=== PATIENT | female | born 1950 | race Caucasian/White ===

== ENCOUNTER 2017-07-21 12:40 | Emergency (ER) | payer MEDICARE ==
[~2017-07-21] VITALS: Ht 162.6 cm; Wt 86.2 kg
--- OUTSIDE RECORDS SUMMARY | ~2017-07-21 | XMS ---
Demographics + + + | Address | [address] | | | [place] [address] | + + + | Preferred Language | Unknown | + + + | Marital Status | Unknown | + + + | Latter-Day Affiliation | Unknown | + + + | Race | Unknown | + + + | Ethnic Group | Unknown | + + + Author + + + | Author | [facility] | + + + | Organization | [facility] | + + + | Address | [address] | | | [place] [address] | + + + | Phone | | + + + Care Team Providers + + + + | Care Molded Frames Assembler Name | Role | Phone | + + + + Unavailable | Unavailable | + + + + PROBLEMS +---------+ + + +--------+ + + | Type | Condition | ICD9-CM | [id number] | Onset | Condition | SNOMED | | | | Code | Code | Dates | Status | Code | +---------+ + + +--------+ + + | Problem | Essential | | I10 | | Active | [id number] | | | (primary) | | | | | | | | hypertensi | | | | | | | | on | | | | | | +---------+ + + +--------+ + + ALLERGIES No Information SOCIAL HISTORY Never Assessed PLAN OF CARE VITAL SIGNS MEDICATIONS Unknown Medications RESULTS No Results PROCEDURES No Known procedures IMMUNIZATIONS No Known Immunizations MEDICAL (GENERAL) HISTORY + + + + | Type | Description | Date | + + + + | Surgical History | Foot Reconstruction | 2000 | + + + + | Surgical History | Arthoscopy both knees | | + + + + | Surgical History | hysterectomy | | + + + + | Surgical History | Total Knee | Jun 2015 | + + + + | Surgical History | Appendectomy | | + + + + | Surgical History | Tonsilectomy | | + + + + | Hospitalization History | [facility]: Knee | Dec 2504/2016 | | | Replacement | | + + + + | Hospitalization History | [facility] ER Visit: Back Pain | | + + + + | Hospitalization History | [facility] Admission: Infected | | | | disc in patient back | | + + + + | Hospitalization History | [facility] ER Visit: for upper | January/2016 | | | respiratory issue, | | | | transported to [facility] | | + + + + | Hospitalization History | [facility] Admission: A Fib | January/2016 | + + + +"
[~2017-07-21 12:40] MED LIST: CLARITIN10 MG PO; CYCLOBENZAPRINE10 MG PO; DILAUDID2 MG PO; HYDROMORPHONE HC4 MG PO; IRON325 M1 PO; MIRALAX17 GM PO; MULTI VITAMIN1 EACH PO; NUCYNTA50 MG PO; OXYCONTIN20 MG PO; PREDNISONE20 MG PO; REPLESTA50000 UNIT PO; TRAMADOL HCL50 MG PO; TYLENOL325 MG PO; VITAMIN C500 M2 PO; XARELTO10 MG PO
[2017-07-21] MEDS ORDERED: POTASSIUM CHLO20 ME1 PO (12:52)
[2017-07-21] MEDS ORDERED: METOPROLOL SUCC50 MG PO (12:52)
[2017-07-21] MEDS ORDERED: ELIQUIS5 MG PO (12:52)
[2017-07-21] MEDS ORDERED: MAGNESIUM400 MG PO (12:53)
[2017-07-21] MEDS ORDERED: FAMOTIDINE20 MG PO (12:53)
== END 2017-07-21 13:05 | disposition home or self-care (01) ==
LOC: ED 12:40
DX: M25.531 Pain in right wrist (principal); Z00.8 Encounter for other general examination

== ENCOUNTER 2018-04-06 18:16 | Emergency (ER) | payer MEDICARE ==
[~2018-04-06] VITALS: Ht 162.6 cm; Wt 86.2 kg
[~2018-04-06 18:16] MED LIST changes: +ELIQUIS5 MG PO; +FAMOTIDINE20 MG PO; +MAGNESIUM400 MG PO; +METOPROLOL SUCC50 MG PO; +POTASSIUM CHLO20 ME1 PO
[2018-04-06] MEDS ORDERED: ALENDRONATE SOD70 MG PO (18:57)
[2018-04-06] MEDS ORDERED: TRAMADOL HCL50 MG PO (22:30)
--- NOTE | 2018-04-07 19:35 | EKG ---
[facility] [address] [facility] [place], [place] [address] Signed Atrial fibrillation Cannot rule out Anterior infarct , age undetermined Abnormal ECG No previous ECGs available Confirmed by PATRICK KOLB MD ([id number]) on 04/07/2018 7:35:48 PM Electronically Signed By: PATRICK KOLB MD 04/07/181934 PATIENT NAME: NAIMA BERG Electrocardiogram DATE OF : 52 PHYSICIAN: PATRICK KOLB MD REPORT #: [id number] REPORT IS CONFIDENTIAL AND NOT TO BE RELEASED WITHOUT AUTHORIZATION
== END 2018-04-06 22:44 | disposition home or self-care (01) ==
LOC: ED 18:16
DX: R07.89 Other chest pain (principal); Z88.5 Allergy status to narcotic agent; Z91.013 Allergy to seafood; Z88.0 Allergy status to penicillin; Z88.6 Allergy status to analgesic agent; Z88.2 Allergy status to sulfonamides; Z88.1 Allergy status to other antibiotic agents; Z88.8 Allergy status to other drugs, medicaments and biological substances; Z79.899 Other long term (current) drug therapy
CPT/HCPCS: 71046; 80053; 84484; 85025; 85379; 93005; 93010; 99283

== ENCOUNTER 2019-11-01 15:03 | Emergency (ER) | payer MEDICARE ==
[~2019-11-01] VITALS: Ht 162.6 cm; Wt 98.0 kg
--- OUTSIDE RECORDS SUMMARY | ~2019-11-01 | XMS | Encounter Summary ---
Demographics + + + | Address | [address] | | | [place] [address] | + + + | Home Phone | | + + + | Preferred Language | Unknown | + + + | Marital Status | | + + + | Samaritan Affiliation | 1001 | + + + | Race | Unknown | + + + | Ethnic Group | Unknown | + + + Author + + + | Author | [facility] | | | and [place] | + + + | Organization | [facility] | | | and [place] | + + + | Address | Unknown | + + + | Phone | Unavailable | + + + Support + + + + + | Name | Relationship | Address | Phone | + + + + + | Bhavesh Hernandes | ECON | [address] | | | | | [place], [place] | | | | | [address] | | + + + + + Care Team Providers + +------+ + | Care Theater Technician Name | Role | Phone | + +------+ + | Maude Means MD | PCP | | + +------+ + Encounter Details +--------+ + + + + | Date | Type | Department | Care Team | Description | +--------+ + + + + | 09/01/ | Imaging | [facility] | Provider, | | | 2018 | Exam | [facility] | MD Norma Harris | | | | | IMAGING | [place] | | | | | [phone] | [place] [address] | | +--------+ + + + + Social History + +-------+ +--------+------+ | Tobacco Use | Types | Packs/Day | Years | Date | | | | | Used | | + +-------+ +--------+------+ | Never Smoker | | | | | + +-------+ +--------+------+ + +---+---+---+ | Smokeless Tobacco: | | | | | Never Used | | | | + +---+---+---+ + + +---------+ + | Alcohol Use | Drinks/Week | oz/Week | Comments | + + +---------+ + | No | | | | + + +---------+ + + + + | Sex Assigned at | Date Recorded | | | | + + + | Not on file | | + + + + + + + | Job Start Date | Occupation | Industry | + + + + | Not on file | Not on file | Not on file | + + + + + + + + | Travel History | Travel Start | Travel End | + + + + + + | No recent travel history available. | + + documented as of this encounter Functional Status + + + + | Functional Status | Response | Date of Assessment | + + + + | Are you deaf or do you have serious | No | 02/04/2016 | | difficulty hearing? | | | + + + + | Are you blind or do you have serious | No | 02/04/2016 | | difficulty seeing, even when wearing | | | | glasses? | | | + + + + | Do you have serious difficulty walking or | Yes | 02/04/2016 | | climbing stairs? (5 years old or older) | | | + + + + | Do you have difficulty dressing or bathing? | No | 02/04/2016 | | (5 years old or older) | | | + + + + | Because of a physical, mental, or emotional | Yes | 02/04/2016 | | condition, do you have difficulty doing | | | | errands alone such as visiting a doctor's | | | | office or shopping? [15 years old or | | | | older)] | | | + + + + + + + + | Cognitive Status | Response | Date of Assessment | + + + + | Because of a physical, mental, or emotional | No | 02/04/2016 | | condition, do you have serious difficulty | | | | concentrating, remembering, or making | | | | decisions? (5 years old or older) | | | + + + + documented as of this encounter Plan of Treatment +--------+ + + + + | Date | Type | Specialty | Care Team | Description | +--------+ + + + + | 06/24/ | Appointment | Radiation Oncology | Jojo Henry | | | 2019 | | | MD [address] | | | | | | [place], [place] | | | | | | [address] | | | | | | | | +--------+ + + + + documented as of this encounter Procedures + +--------+ + + + | Procedure Name | Priori | Date/Time | Associated Diagnosis | Comments | | | ty | | | | + +--------+ + + + | EDSON TOMOSYN | Routin | 07/15/2018 | | Results for this | | DIAGNOSTIC RIGHT | e | 8:30 AM | | procedure are in the | | | | PDT | | results section. | + +--------+ + + + documented in this encounter Results EDSON Tomosynthesis Diagnostic Right (07/15/2018 8:30 AM PDT) + + | Specimen | + + | | + + + + + | Narrative | Performed At | + + + | External films for comparison only | [facility] | | | | | No results will be in the chart. | | + + + + +---------+ + + | Performing | Address | City/State/Zipcode | Phone Number | | Organization | | | | + +---------+ + + | [facility] | | | | + +---------+ + + documented in this encounter Visit Diagnoses Not on filedocumented in this encounter"
--- OUTSIDE RECORDS SUMMARY | ~2019-11-01 | XMS | Encounter Summary ---
Demographics + + + | Address | [address] | | | [place] [address] | + + + | Home Phone | | + + + | Preferred Language | Unknown | + + + | Marital Status | | + + + | Jainism Affiliation | 1001 | + + + | Race | Unknown | + + + | Ethnic Group | Unknown | + + + Author + + + | Author | [facility] | | | and [place] | + + + | Organization | [facility] | | | and [place] [...] [place], [place] | | | | | [address] | | + + + + + Care Team Providers + +------+ + | Care Boiler Maker Name | Role | Phone | + +------+ + | Maude Means MD | PCP | | + +------+ + Encounter Details +--------+ + + + + | Date | Type | Department | Care Team | Description | +--------+ + + + + | 03/22/ | Orders Only | [facility] | Conversion | | | 2016 | | INFECTIOUS DISEASE | Transaction, | | | | | [address] | Provider Unknown | | | | | [facility] [place] | [phone] | | | | | [address] | | | | | | [phone] | | | +--------+ + + + + Social History + +-------+ +--------+------+ | Tobacco Use | Types | Packs/Day | Years | Date | | | | | Used | | + +-------+ +--------+------+ | Never Smoker | | | | | + +-------+ +--------+------+ + + +---------+ + | Alcohol Use [...] Oncology | Jojo Henry | | | 2020 | | | MD [address] | | | | | | [place], [place] | | | | | | [address] | | | | | | | | +--------+ + + + + documented as of this encounter Procedures + +--------+ + + + | Procedure Name | Priori | Date/Time | Associated Diagnosis | Comments | | | ty | | | | + +--------+ + + + | EXTERNAL LAB: CBC | Routin | 03/22/2016 | | Results for this | | | e | 12:00 AM | | procedure are in the | | | | PDT | | results section. | + +--------+ + + + | SEDIMENTATION RATE, | Routin | 03/22/2016 | | Results for this | | AUTOMATED | e | 12:00 AM | | procedure are in the | | | | PDT | | results section. | + +--------+ + + + | C-REACTIVE PROTEIN | Routin | 03/22/2016 | | Results for this | | | e | 12:00 AM | | procedure are in the | | | | PDT | | results section. | + +--------+ + + + documented in this encounter Results Sedimentation rate, automated (03/22/2016 12:00 AM PDT) + +-------+ + + + | Component | Value | Ref Range | Performed | Pathologist | | | | | At | Signature | + +-------+ + + + | Sed Rate | 14 | 0 - 20 mm/hr | EXTERNAL | | | | | | LAB | | + +-------+ + + + + + | Specimen | + + | Blood specimen | | (specimen) | + + + +---------+ + + | Performing | Address | City/State/Zipcode | Phone Number | | Organization | | | | + +---------+ + + | EXTERNAL LAB | | | | + +---------+ + + External Lab: CBC (03/22/2016 12:00 AM PDT) + +---------+ + + + | Component | Value | Ref Range | Performed | Pathologist | | | | | At | Signature | + +---------+ + + + | WBC | 3.9 (A) | 4.5 - 11.0 K/uL | EXTERNAL | | | | | | LAB | | + +---------+ + + + | RED CELL | 4.51 | 3.8 - 5.1 M/uL | EXTERNAL | | | COUNT | | | LAB | | + +---------+ + + + | Hgb | 13.0 | 12.0 - 16.0 | EXTERNAL | | | | | g/dL | LAB | | + +---------+ + + + | Hematocrit, | 40.0 | 35 - 45 % | EXTERNAL | | | POC | | | LAB | | + +---------+ + + + | MCV | 88.9 | 81 - 99 fL | EXTERNAL | | | | | | LAB | | + +---------+ + + + | MCH | 29 | 27 - 33 pg | EXTERNAL | | | | | | LAB | | + +---------+ + + + | MCHC | 33 | 30 - 36 g/dL | EXTERNAL | | | | | | LAB | | + +---------+ + + + | Platelet | 154 | 140 - 440 K/uL | EXTERNAL | | | Count | | | LAB | | | Plasma | | | | | + +---------+ + + + | RDW-CV | 14.8 | 10.5 - 15.0 % | EXTERNAL | | | | | | LAB | | + +---------+ + + + | MPV | | | EXTERNAL | | | | | | LAB | | + +---------+ + + + | Differentia | | | EXTERNAL | | | l Type | | | LAB | | + +---------+ + + + | % Segmented | 65.0 | 39 - 80 % | EXTERNAL | | | | | | LAB | | | Neutrophils | | | | | + +---------+ + + + | % | 24.2 | 24 - 44 % | EXTERNAL | | | Lymphocytes | | | LAB | | + +---------+ + + + | % Monocytes | 7.0 | 0 - 12 % | EXTERNAL | | | | | | LAB | | + +---------+ + + + | % | 3.0 | 0 - 3 % | EXTERNAL | | | Eosinophils | | | LAB | | + +---------+ + + + | % Basophils | 0.8 | 0 - 2 % | EXTERNAL | | | | | | LAB | | + +---------+ + + + | Absolute | | | EXTERNAL | | | Segmented | | | LAB | | | Neutrophils | | | | | + +---------+ + + + | Absolute | | | EXTERNAL | | | Lymphocytes | | | LAB | | + +---------+ + + + | Absolute | | | EXTERNAL | | | Monocytes | | | LAB | | + +---------+ + + + | Absolute | | | EXTERNAL | | | Eosinophils | | | LAB | | + +---------+ + + + | Absolute | | | EXTERNAL | | | Basophils | | | LAB | | + +---------+ + + + + + | Specimen | + + | Blood specimen | | (specimen) | + + + +---------+ + + | Performing | Address | City/State/Zipcode | Phone Number | | Organization | | | | + +---------+ + + | EXTERNAL LAB | | | | + +---------+ + + C-Reactive Protein (03/22/2016 12:00 AM PDT) + +-------+ + + + | Component | Value | Ref Range | Performed | Pathologist | | | | | At | Signature | + +-------+ + + + | CRP | 3.8 | 0 - 5 mg/L | EXTERNAL | | | | | | LAB | | + +-------+ + + + + + | Specimen | + + | Blood specimen | | (specimen) | + + + +---------+ + + | Performing | Address | City/State/Zipcode | Phone Number | | Organization | | | | + +---------+ + + | EXTERNAL LAB | | | | + +---------+ + + documented in this encounter Visit Diagnoses Not on filedocumented in this encounter"
--- OUTSIDE RECORDS SUMMARY | ~2019-11-01 | XMS | Encounter Summary ---
Demographics + + + | Address | [address] | | | [place] [address] | + + + | Home Phone | | + + + | Preferred Language | Unknown | + + + | Marital Status | | + + + | Gnosticist Affiliation | 1001 | + + + | Race | Unknown | + + + | Ethnic Group | Unknown | + + + Author + + + | Author | [facility] | | | and [place] | + + + | Organization | [facility] | | | and [place] | + + + | Address | Unknown | + + + | Phone | Unavailable | + + + Support + + + + + | Name | Relationship | Address | Phone | + + + + + | Bhavesh Hernandes | ECON | [address] | | | | | [place] | | | | | [address] | | + + + + + Care Team Providers + +------+ + | Care Sample Selector Name | Role | Phone | + +------+ + | Puneet Donovan MD | PCP | | + +------+ + Reason for Visit + + + | Reason | Comments | + + + | Appointment | flex sig | + + + Encounter Details +--------+ + + + + | Date | Type | Department | Care Team | Description | +--------+ + + + + | 03/01/ | Telephone | [facility] | Brett Wing MD | Appointment (flex | | 2016 | | GASTROENTEROLOGY | [address], [place] | sig) | | | | [address] [place] | [address] [place], [place] | | | | | [address] [place], [place] | [address] | | | | | [address] | | | | | | [phone] | | | +--------+ + + + [...] [address] | | | | | | [place] | | | | | | [address] | | | | | | | | +--------+ + + + + documented as of this encounter Visit Diagnoses Not on filedocumented in this encounter"
--- OUTSIDE RECORDS SUMMARY | ~2019-11-01 | XMS | Encounter Summary ---
Demographics + + + | Address | [address] | | | [place] [address] | + + + | Home Phone | | + + + | Preferred Language | Unknown | + + + | Marital Status | | + + + | Pentecostal Affiliation | 1001 | + + + | Race | Unknown | + + + | Ethnic Group | Unknown | + + + Author + + + | Author | [facility] | | | and [place] | + + + | Organization | [facility] | | | and [...] [place], [place] | | | | | [address] | | + + + + + Care Team Providers + +------+ + | Care Operating Room Surgical Technician Name | Role | Phone | [...] [address] | | | | | [phone] | [place] [address] | | +--------+ + + + + [...] | | | | | | [place], [place] | | | | | | [address] | | | | | | | | +--------+ + + + + documented as of this encounter Procedures + +--------+ + + + | Procedure Name | Priori | Date/Time | Associated Diagnosis | Comments | | | ty | | | | + +--------+ + + + | US GUIDED BREAST | Routin | 07/28/2018 | | Results for this | | BIOPSY RIGHT | e | 9:50 AM | | procedure are in the | | | | PDT | | results section. | + +--------+ + + + documented in this encounter Results US Guided Breast Biopsy Right (07/28/2018 9:50 AM PDT) + + | Specimen | [...]
--- OUTSIDE RECORDS SUMMARY | ~2019-11-01 | XMS | Encounter Summary ---
Demographics + + + | Address | [address] | | | [place] [address] | + + + | Home Phone | | + + + | Preferred Language | Unknown | + + + | Marital Status | | + + + | Gnosticism Affiliation | 1001 | + + + | Race | Unknown | + + + | Ethnic Group | Unknown | + + + Author + + + | Author | [facility] | | | and [place] | + + + | Organization | [facility] | | | and [...] [place], [place] | | | | | [address] | | + + + + + Care Team Providers + +------+ + | Care Receiving Room Clerk Name | Role | Phone | + +------+ + | Maude Means MD | PCP | | + +------+ + Encounter Details +--------+ + + + + | Date | Type | Department | Care Team | Description | +--------+ + + + + | 11/03/ | Documentati | [facility] | Ronna Andrade | | | 2019 | on | MED CNT ONCOLOGY | A, OT | | | | | THERAPY [address] | | | | | | [place], | | | | | | [place] [address] | | | | | | [phone] | | | +--------+ + + + [...] + + documented as of this encounter Progress Notes Ronna Andrade OT - 11/03/2018 1:33 PM PSTFollow up oncology rehab visit as patient h as almost completed radiation tx. Patient reports no concerns to this therapist. She dayna nues to have full UE ROM in BUEs, no c/o pain, and no edema. She has tolerated radiation tx very well, with just mild skin irritation. Patient continues to perform daily ROM exercise s as recommended. She has no further questions or concerns at this time.Electronically sign ed by Ronna Andrade OT at 11/03/2018 1:35 PM PSTdocumented in this encounter Plan of Treatment +--------+ + + + + | Date | Type | Specialty | Care Team | Description | +--------+ + + + + | 06/24/ | Appointment | Radiation Oncology | Jojo Henry | | | 2019 | | | MD [address] | | | | | | [place], [place] | | | | | | [address] | | | | | | | | +--------+ + + + + documented as of this encounter Visit Diagnoses Not on filedocumented in this encounter"
--- OUTSIDE RECORDS SUMMARY | ~2019-11-01 | XMS | Encounter Summary ---
Demographics + + + | Address | [address] | | | [place] [address] | + + + | Home Phone | | + + + | Preferred Language | Unknown | + + + | Marital Status | | + + + | Orthodoxy Affiliation | 1001 | + + + | Race | Unknown | + + + | Ethnic Group | Unknown | + + + Author + + + | Author | [facility] | | | and [place] | + + + | Organization | [facility] | | | and [place] | + + + | Address | Unknown | + + + | Phone | Unavailable | + + + Support + + + + + | Name | Relationship | Address | Phone | + + + + + | Bhavesh Hernandes | ECON | [address] | | | | | [place] | | | | | [address] | | + + + + + Care Team Providers + +------+ + | Care Retail Helper Name | Role | Phone | + +------+ + | Maude Means MD | PCP | | + +------+ + Encounter Details +--------+ + + + + | Date | Type | Department | Care Team | Description | +--------+ + + + + | 10/26/ | Hospital | [facility] | Jojo Henry | | | 2019 | Encounter | MED CTR RADIATION | M, MD [address] | | | | | ONCOLOGY [address] [place], [place] | | | | | [place], | [address] | | | | | [place] [address] | | | | | | [phone] | | | +--------+ + + + [...] + + documented as of this encounter Medications at Time of Discharge + + + +---------+ + + | Medication | Sig | Dispensed | Refills | Start | End Date | | | | | | Date | | + + + +---------+ + + | acetaminophen | Take 650 mg by mouth | | 0 | | | | (TYLENOL) 325 mg | every 4 hours as | | | | | | tablet | needed for Pain. | | | | | + + + +---------+ + + | alendronate | Take 70 mg by mouth | | 0 | | | | (FOSAMAX) 70 mg | every 7 days. | | | | | | tablet | | | | | | + + + +---------+ + + | apixaban (ELIQUIS) | Take 1 tablet by | 60 | 1 | 02/04/20 | | | 5 mg tablet | mouth 2 times daily. | tablet | | 16 | | + + + +---------+ + + | | Take 250 mg by mouth | | 0 | | | | Aspirin-Acetaminophe | as needed. | | | | | | n-Caffeine (EXCEDRIN | | | | | | | PO) | | | | | | + + + +---------+ + + | Calcium Citrate | Take 500 mg by mouth | | 0 | | | | (CITRACAL PO) | 2 times daily. | | | | | + + + +---------+ + + | loratadine | Take 10 mg by mouth. | | 0 | | | | (CLARITIN) 10 mg | | | | | | | tablet | | | | | | + + + +---------+ + + | magnesium oxide | Take 1 tablet by | 30 | 1 | 02/05/20 | | | (MAG-OX) 400 mg | mouth Daily. | tablet | | 16 | | | tablet | | | | | | + + + +---------+ + + | metoprolol | Take 3 tablets by | 90 | 1 | 02/04/20 | | | succinate | mouth Daily. | tablet | | 16 | | | (TOPROL-XL) 50 mg 24 | | | | | | | hr tablet | | | | | | + + + +---------+ + + | potassium chloride | Take 1 tablet by | 60 | 1 | 02/05/20 | | | (K-DUR) 20 mEq ER | mouth daily (with | tablet | | 16 | | | tablet | breakfast). | | | | | + + + +---------+ + + | raNITIdine | Take 150 mg by mouth | | 0 | | | | (ZANTAC) 150 mg | nightly. | | | | | | tablet | | | | | | + + + +---------+ + + documented as of this encounter Plan of Treatment +--------+ + + + + | Date | Type | Specialty | Care Team | Description | +--------+ + + + + | 06/24/ | Appointment | Radiation Oncology | Jojo Henry | | | 2020 | | | MD [address] | | | | | | [place] | | | | | | [address] | | | | | | | | +--------+ + + + + documented as of this encounter Visit Diagnoses Not on filedocumented in this encounter"
--- OUTSIDE RECORDS SUMMARY | ~2019-11-01 | XMS | Encounter Summary ---
Demographics + + + | Address | [address] | | | [place] [address] | + + + | Home Phone | | + + + | Preferred Language | Unknown | + + + | Marital Status | | + + + | Buddhist Affiliation | 1001 | + + + | Race | Unknown | + + + | Ethnic Group | Unknown | + + + Author + + + | Author | [facility] | | | and [place] | + + + | Organization | [facility] | | | and [place] | + + + | Address | Unknown | + + + | Phone | Unavailable | + + + Support + + + + + | Name | Relationship | Address | Phone | + + + + + | Bhavesh Hernandes | ECON | [address] | | | | | [place] | | | | | [address] | | + + + + + Care Team Providers + +------+ + | Care Sand Worker Name | Role | Phone | + +------+ + | Maude Means MD | PCP | | + +------+ + Reason for Visit + + + | Reason | Comments | + + + | Consult | | + + + | Breast Cancer | | + + + Evaluate & Treat (Routine) +--------+ + + + + + | Status | Reason | Specialty | Diagnoses / | Referred By | Referred To | | | | | Procedures | Contact | Contact | +--------+ + + + + + | Closed | Specialty | Radiation | Diagnoses | Naveed, | Carl, | | | Services | Oncology | [place] breast | [place] [facility] | Jojo Lopez MD | | | Required | | Procedures | [address] | [address] | | | | | [place] OFFICE | [address] | | | | | OUTPATIENT | [address] | [place], | | | | | [address] | [place], | [place] [address] | | | | | MINUTES | [place] [address] | Phone: | | | | | | Phone: | [phone] | | | | | | [phone] | Fax: | | | | | | Fax: | [phone] | | | | | | [phone] | | +--------+ + + + + + Encounter Details +--------+ + + + + | Date | Type | Department | Care Team | Description | +--------+ + + + + | 09/03/ | Hospital | [facility] | Jojo Henry | Malignant neoplasm | | 2018 | Encounter | MED CTR RADIATION | MD Jessica [address] | of upper-outer | | | | ONCOLOGY CLINIC [address] | [place], [place] | quadrant of right | | | | [address] | [id number] | breast in female, | | | | [place] [address] | | estrogen receptor | | | | [phone] | | positive (HCC) | +--------+ + + + + Social [...] + + documented as of this encounter Last Filed Vital Signs + + + + + | Vital Sign | Reading | Time Taken | Comments | + + + + + | Blood Pressure | 126/87 | 09/03/2018 12:49 PM | | | | | PST | | + + + + + | Pulse | 77 | 09/03/2018 12:49 PM | | | | | PST | | + + + + + | Temperature | 36.7 C (98 F) | 09/03/2018 12:49 PM | | | | | PST | | + + + + + | Respiratory Rate | 16 | 09/03/2018 12:49 PM | | | | | PST | | + + + + + | Oxygen Saturation | 96% | 09/03/2018 12:49 PM | | | | | PST | | + + + + + | Inhaled Oxygen | - | - | | | Concentration | | | | + + + + + | Weight | 99.3 kg (218 lb 14.7 | 09/03/2018 12:49 PM | | | | oz) | PST | | + + + + + | Height | 166 cm (5' 5.35") | 09/03/2018 12:49 PM | | | | | PST | | + + + + + | Body Mass Index | 36.04 | 09/03/2018 12:49 PM | | | | | PST | | + + + + + documented in this encounter Functional Status + + + [...] | | | | | | [place], [place] | | | | | | [address] | | | | | | | | +--------+ + + + + documented as of this encounter Visit Diagnoses + + | Diagnosis | + + | Malignant neoplasm of upper-outer quadrant of right breast in female, estrogen | | receptor positive (HCC) | + + documented in this encounter
--- OUTSIDE RECORDS SUMMARY | ~2019-11-01 | XMS | Encounter Summary ---
Demographics + + + | Address | [address] | | | [place] [address] | + + + | Home Phone | | + + + | Preferred Language | Unknown | + + + | Marital Status | | + + + | Jewish Affiliation | 1001 | + + + | Race | Unknown | + + + | Ethnic Group | Unknown | + + + Author + + + | Author | [facility] | | | and [place] | + + + | Organization | [facility] | | | and [place] | + + + | Address | Unknown | + + + | Phone | Unavailable | + + + Support + + + + + | Name | Relationship | Address | Phone | + + + + + | Bhavesh Hernandes | ECON | [address] | | | | | [place], [place] | | | | | [address] | | + + + + + Care Team Providers + +------+ + | Care Headhunter Name | Role | Phone | + +------+ + | Maude Means MD | PCP | | + +------+ + Encounter Details +--------+ + + + + | Date | Type | Department | Care Team | Description | +--------+ + + + + | 09/04/ | Documentati | [facility] | Juanita Key | | | 2018 | on | MED CTR MEDICAL | J, RN | | | | | ONCOLOGY CLINIC [address] | | | | | | [address] | | | | | | [place] [address] | | | | | | [phone] | | | +--------+ + + + [...] documented as of this encounter Progress Notes Juanita Key RN - 09/04/2018 9:59 AM PSTI met patient and her in the exam room following Dr. Henry's consult and introduced my role to provide support, education an d navigation for appointments and resources. I provided my contact information and a bookle t on Radiation Therapy. Yamilet says she's doing well post-op and declines the offer to me et with OT. She is doing light massage over her incisions and can feel them softening. She reports she meets often with friends and has a strong social support network. She and her h abdirashid have membership at the gym in [place]; I encouraged them to inquire re: the service s available to cancer patients and survivors at their gym and we discussed the benefits of a ctivity and continuing to exercise. The Greta's live in [place] and Mr Hernandes works history department chair in the mornings. We discussed housing options for Yamilet in [place] during Radi ation Treatments either through the [facility] or [facility] and hotel and they were relieved to hear there is lodging support. I'll plan to introduce them to [facility] anticipating housing and /or transportation assistance when they return to see Dr. Nunez on 09/16. I passed on Dr. Henry's request to order the oncotype DX test to [facility]; and that Dr. Henry sugges ts we can wait to proceed with genetic counseling/ genetic testing on 09/16. I offered a ravindra r of the radiation therapy area and we agreed that I'll re-offer the tour when they return 11/16. Their questions today were answered to their satisfaction. documented in this encounter Plan of Treatment +--------+ + + + + | Date | Type | Specialty | Care Team | Description | +--------+ + + + + | 06/24/ | Appointment | Radiation Oncology | Jojo Henry | | | 2020 | | | MD [address] | | | | | | [place] | | | | | | [address] | | | | | | | | +--------+ + + + + documented as of this encounter Visit Diagnoses Not on filedocumented in this encounter"
--- OUTSIDE RECORDS SUMMARY | ~2019-11-01 | XMS | Encounter Summary ---
Demographics + + + | Address | [address] | | | [place] [address] | + + + | Home Phone | | + + + | Preferred Language | Unknown | + + + | Marital Status | | + + + | Mormonism Affiliation | 1001 | + + + | Race | Unknown | + + + | Ethnic Group | Unknown | + + + Author + + + | Author | [facility] | | | and [place] | + + + | Organization | [facility] | | | and Christianana [...] [place], [place] | | | | | [address] | | + + + + + Care Team Providers + +------+ + | Care Marshmallow Machine Worker Name | Role | Phone | + +------+ + | Maude Means MD | PCP | | + +------+ + Encounter Details +--------+ + + + + | Date | Type | Department | Care Team | Description | +--------+ + + + + | 02/17/ | Documentati | [facility] | Fatoumata Waters RN | | | 2019 | on | MED CTR MEDICAL | | | | | | ONCOLOGY CLINIC [address] | | | | | | [address] | | | | | | [place] [address] | | | | | | [phone] | | | +--------+ + + + [...] documented as of this encounter Progress Notes Fatoumata Waters, RN - 02/17/2019 1:40 PM Chasidy completed treatment for breast cancer o n 11/06/18 and is eligible for a survivorship care plan per Commission on Cancer guidelines. Survivorship care plan was given and discussed with Yamilet in person today. No further qu estions at this time per patient. Let Yamilet know if there are any questions she is welcom e to call me or her medical team here at the cancer center at anytime, contact information w as given. Yamilet filled out the NCCN distress thermometer tool with a score of 6/10 relat ed to joint pain. She will be discussing this with Dr. Henry and Dr. Cardenas today at appointments scheduled after this meeting. She also has an appointment with her Orthopedist in relation to knee and shoulder pain. She is not scheduled to see OT at this time. Based on conversation and answers on the distress tool, no further referrals to be made at this ti pr. Yamilet will make follow up appointments after scheduled appointments today. I shared resources with Yamilet today including diet/nutrition/exercise, fear of recurrence, emotio nal concerns, intimacy during and after cancer treatment, support group information and the cancer survivorship booklet. P M PDTdocumented in this encounter Plan of Treatment +--------+ + + + + | Date | Type | Specialty | Care Team | Description | +--------+ + + + + | 06/24/ | Appointment | Radiation Oncology | Jojo Henry | | | 2019 | | | MD [address] | | | | | | [place] | | | | | | [id number] | | | | | | | | +--------+ + + + + documented as of this encounter Visit Diagnoses Not on filedocumented in this encounter"
--- OUTSIDE RECORDS SUMMARY | ~2019-11-01 | XMS | Encounter Summary ---
Demographics + + + | Address | [address] | | | [place] [address] | + + + | Home Phone | | + + + | Preferred Language | Unknown | + + + | Marital Status | | + + + | Jew Affiliation | 1001 | + + + | Race | Unknown | + + + | Ethnic Group | Unknown | + + + Author + + + | Author | [facility] | | | and [place] | + + + | Organization | [facility] | | | and Christianana [...] [place], [place] | | | | | [address] | | + + + + + Care Team Providers + +------+ + | Care Tank Truck Loader Name | Role | Phone | + +------+ + | Maude Means MD | PCP | | + +------+ + Encounter Details +--------+ + + + + | Date | Type | Department | Care Team | Description | +--------+ + + + + | 02/05/ | Orders Only | [facility] | Conversion | | | 2015 | | INFECTIOUS DISEASE | Transaction, | | | | | [address] | Provider Unknown | | | | | [facility] [place] | [phone] | | | | | [address] | | | | | | [phone] | | | +--------+ + + + [...] | | | | | | [place], [place] | | | | | | [address] | | | | | | | | +--------+ + + + + documented as of this encounter Procedures + +--------+ + + + | Procedure Name | Priori | Date/Time | Associated Diagnosis | Comments | | | ty | | | | + +--------+ + + + | EXTERNAL LAB: [facility] | Routin | 02/06/2016 | | Results for this | | | e | 12:00 AM | | procedure are in the | | | | PDT | | results section. | + +--------+ + + + | MAGNESIUM | Routin | 02/06/2016 | | Results for this | | | e | 12:00 AM | | procedure are in the | | | | PDT | | results section. | + +--------+ + + + | BASIC METABOLIC | Routin | 02/06/2016 | | Results for this | | PANEL | e | 12:00 AM | | procedure are in the | | | | PDT | | results section. | + +--------+ + + + documented in this encounter Results External Lab: [facility] (02/06/2016 12:00 AM PDT) + + + + + + | Component | Value | Ref Range | Performed | Pathologist | | | | | At | Signature | + + + + + + | WBC | 5.7 | 4.5 - 11.0 K/uL | EXTERNAL | | | | | | LAB | | + + + + + + | RED CELL | 4.78 | 3.8 - 5.1 M/uL | EXTERNAL | | | COUNT | | | LAB | | + + + + + + | Hgb | 13.6 | 12.0 - 16.0 | EXTERNAL | | | | | g/dL | LAB | | + + + + + + | Hematocrit, | 42.0 | 35 - 45 % | EXTERNAL | | | POC | | | LAB | | + + + + + + | MCV | 87.9 | 81 - 99 fL | EXTERNAL | | | | | | LAB | | + + + + + + | MCH | 28 | 27 - 33 pg | EXTERNAL | | | | | | LAB | | + + + + + + | MCHC | 32 | 30 - 36 g/dL | EXTERNAL | | | | | | LAB | | + + + + + + | Platelet | 311 | 140 - 440 K/uL | EXTERNAL | | | Count | | | LAB | | | Plasma | | | | | + + + + + + | RDW-CV | 16.2 (A) | 10.5 - 15.0 % | EXTERNAL | | | | | | LAB | | + + + + + + | MPV | | | EXTERNAL | | | | | | LAB | | + + + + + + | Differentia | | | EXTERNAL | | | l Type | | | LAB | | + + + + + + | % Segmented | 76.2 | 39 - 80 % | EXTERNAL | | | | | | LAB | | | Neutrophils | | | | | + + + + + + | % | 14.8 (A) | 24 - 44 % | EXTERNAL | | | Lymphocytes | | | LAB | | + + + + + + | % Monocytes | 7.9 | 0 - 12 % | EXTERNAL | | | | | | LAB | | + + + + + + | % | 0.0 | 0 - 6 % | EXTERNAL | | | Eosinophils | | | LAB | | + + + + + + | % Basophils | 1.1 | 0 - 2 % | EXTERNAL | | | | | | LAB | | + + + + + + | Absolute | | | EXTERNAL | | | Segmented | | | LAB | | | Neutrophils | | | | | + + + + + + | Absolute | | | EXTERNAL | | | Lymphocytes | | | LAB | | + + + + + + | Absolute | | | EXTERNAL | | | Monocytes | | | LAB | | + + + + + + | Absolute | | | EXTERNAL | | | Eosinophils | | | LAB | | + + + + + + | Absolute | | | EXTERNAL | | | Basophils | | | LAB | | + + + + + + + + | Specimen | + + | Blood specimen | | (specimen) | + + + +---------+ + + | Performing | Address | City/State/Zipcode | Phone Number | | Organization | | | | + +---------+ + + | EXTERNAL LAB | | | | + +---------+ + + Magnesium (02/06/2016 12:00 AM PDT) + +-------+ + + + | Component | Value | Ref Range | Performed | Pathologist | | | | | At | Signature | + +-------+ + + + | Magnesium | 1.9 | 1.7 - 2.5 mg/dL | EXTERNAL | | | | | [...] | | | + +---------+ + + Basic Metabolic Panel (02/06/2016 12:00 AM PDT) + +-------+ + + + | Component | Value | Ref Range | Performed | Pathologist | | | | | At | Signature | + +-------+ + + + | Glucose, | 71 | 70 - 100 mg/dL | EXTERNAL | | | Fasting | | | LAB | | + +-------+ + + + | BUN | 12 | 6 - 23 mg/dL | EXTERNAL | | | | | | LAB | | + +-------+ + + + | Creatinine | 0.91 | 0.70 - 1.25 | EXTERNAL | | | | | mg/dL | LAB | | + +-------+ + + + | BUN/Creatin | 13.2 | 6.0 - 28.6 | EXTERNAL | | | ine Ratio | | | LAB | | + +-------+ + + + | Calcium | 9.9 | 8.4 - 10.2 | EXTERNAL | | | | | mg/dL | LAB | | + +-------+ + + + | Na | 133 | 132 - 143 meq/L | EXTERNAL | | | | | | LAB | | + +-------+ + + + | K | 4.4 | 3.6 - 5.1 meq/L | EXTERNAL | | | | | | LAB | | + +-------+ + + + | Cl | 100 | 95 - 112 meq/L | EXTERNAL | | | | | | LAB | | + +-------+ + + + | CO2 | 22 | 19 - 31 meq/L | EXTERNAL | | | | | | LAB | | + +-------+ + + + | Anion Gap | 15.4 | 7 - 21 | EXTERNAL | | | | | | LAB | | + +-------+ + + + | Estimated | 62 | 60 ml/min | EXTERNAL | | | GFR | | | LAB | | + [...]
--- OUTSIDE RECORDS SUMMARY | ~2019-11-01 | XMS | Encounter Summary ---
Demographics + + + | Address | [address] | | | [place] [address] | + + + | Home Phone | | + + + | Preferred Language | Unknown | + + + | Marital Status | | + + + | Rastafarian Affiliation | 1001 | + + + | Race | Unknown | + + + | Ethnic Group | Unknown | + + + Author + + + | Author | [facility] | | | and [place] | + + + | Organization | [facility] | | | and [place] | [...] [place], [place] | | | | | [address] | | + + + + + Care Team Providers + +------+ + | Care Robotic Welder Name | Role | Phone | + [...] [address] | | | | | [phone] | [place] [address] | | +--------+ + + + + [...] | | | | | | [place], [place] | | | | | | [address] | | | | | | | | +--------+ + + + + documented as of this encounter Procedures + +--------+ + + + | Procedure Name | Priori | Date/Time | Associated Diagnosis | Comments | | | ty | | | | + +--------+ + + + | US BREAST LIMITED | Routin | 07/15/2018 | | Results for this | | RIGHT | e | 9:35 AM | | procedure are in the | | | | PDT | | results section. | + +--------+ + + + documented in this encounter Results US Breast Limited Right (07/15/2018 9:35 AM PDT) + + | Specimen | [...]
--- OUTSIDE RECORDS SUMMARY | ~2019-11-01 | XMS | Encounter Summary ---
Demographics + + + | Address | [address] | | | [place] [address] | + + + | Home Phone | | + + + | Preferred Language | Unknown | + + + | Marital Status | | + + + | Faith Affiliation | 1001 | + + + | Race | Unknown | + + + | Ethnic Group | Unknown | + + + Author + + + | Author | [facility] | | | and [place] | + + + | Organization | [facility] | | | and [...] [place], [place] | | | | | [address] | | + + + + + Care Team Providers + +------+ + | Care Air Traffic Instructor Name | Role | Phone | + +------+ + PCP | Unavailable | + +------+ + Encounter Details +--------+ + + + + | Date | Type | Department | Care Team | Description | +--------+ + + + + | 08/05/ | [facility] | Brett Wing MD | | | 2005 | Encounter | MED CTR GENERIC OP | [address] | | | | | CONV DEPT [address] | [address] | | | | | [place], | [address] | | | | | [place] [address] | | | | | | [phone] | | | +--------+ + + + + Social History + +-------+ +--------+------+ | Tobacco Use | Types | Packs/Day | Years | Date | | | | | Used | | + +-------+ +--------+------+ | Never Assessed | | | | | + +-------+ +--------+------+ + + + | Sex Assigned at [...] | | 2019 | | | MD Jessica [address] | | | | | | [place] | | | | | | [address] | | | | | | | | +--------+ + + + + documented as of this encounter Visit Diagnoses Not on filedocumented in this encounter"
--- OUTSIDE RECORDS SUMMARY | ~2019-11-01 | XMS | Encounter Summary ---
Demographics + + + | Address | [address] | | | [place] [address] | + + + | Home Phone | | + + + | Preferred Language | Unknown | + + + | Marital Status | | + + + | Anabaptist Affiliation | 1001 | + + + | Race | Unknown | + + + | Ethnic Group | Unknown | + + + Author + + + | Author | [facility] | | | and [place] | + + + | Organization | [facility] | | | and Christianana [...] [place], [place] | | | | | [address] | | + + + + + Care Team Providers + +------+ + | Care Director Of Psychiatry Name | Role | Phone | + +------+ + | Maude Means MD | PCP | | + +------+ + Encounter Details +--------+ + + + + | Date | Type | Department | Care Team | Description | +--------+ + + + + | 03/22/ | Orders Only | [facility] | Conversion | | | 2016 | | INFECTIOUS DISEASE | Transaction, | | | | | [address] | Provider Unknown | | | | | [facility] [place] | [phone] | | | | | [address] | | | | | | [phone] | | | +--------+ + + + [...] | | | | | | [place], [place] | | | | | | [address] | | | | | | | [...]
--- OUTSIDE RECORDS SUMMARY | ~2019-11-01 | XMS | Encounter Summary ---
Demographics + + + | Address | [address] | | | [place] [address] | + + + | Home Phone | | + + + | Preferred Language | Unknown | + + + | Marital Status | | + + + | Adventism Affiliation | 1001 | + + + | Race | Unknown | + + + | Ethnic Group | Unknown | + + + Author + + + | Author | [facility] | | | and [place] | + + + | Organization | [facility] | | | and Christianana [...] [place], [place] | | | | | [address] | | + + + + + Care Team Providers + +------+ + | Care Shearing Machine Tender Name | Role | Phone | + +------+ + | Maude Means MD | PCP | | + +------+ + Reason for Referral Diagnostic/Screening (Routine) +--------+--------+ + + + + | Status | Reason | Specialty | Diagnoses / | Referred By | Referred To | | | | | Procedures | Contact | Contact | +--------+--------+ + + + + | Closed | | Radiology | Diagnoses | Carl | [address] | | | | | Malignant | Jojo M, | [address] [place] | | | | | neoplasm of | MD [address] | [place], | | | | | right breast | [address] | [place] [address] | | | | | in female, | [place], | Phone: | | | | | estrogen | [place] [address] | [phone] | | | | | receptor | Phone: | Fax: | | | | | positive, | [phone] | [phone] | | | | | unspecified | Fax: | | | | | | site of | [phone] | | | | | | breast (HCC) | | | | | | | Procedures | | | | | | | CT | | | | | | | Treatment | | | | | | | Plan Complex | | | | | | | CT TX PLAN | | | +--------+--------+ + + + + Reason for Visit Diagnostic/Screening (Routine) +--------+--------+ + + + + | Status | Reason | Specialty | Diagnoses / | Referred By | Referred To | | | | | Procedures | Contact | Contact | +--------+--------+ + + + + | Closed | | Radiology | Diagnoses | Ridavid, | [address] | | | | | Malignant | Jojo Lopez, | [place] | | | | | neoplasm of | MD [address] | [place], | | | | | right breast | [address] | [place] [address] | | | | | in female, | [place], | Phone: | | | | | estrogen | [place] [address] | [phone] | | | | | receptor | Phone: | Fax: | | | | | positive, | [phone] | [phone] | | | | | unspecified | Fax: | | | | | | site of | [phone] | | | | | | breast (HCC) | | | | | | | Procedures | | | | | | | CT | | | | | | | Treatment | | | | | | | Plan Complex | | | | | | | CT TX PLAN | | | +--------+--------+ + + + + Encounter Details +--------+ + + + + | Date | Type | Department | Care Team | Description | +--------+ + + + + | 09/30/ | Hospital | [facility] | Jojo Henry | Malignant neoplasm | | 2018 | Encounter | MED CTR [address] | M, [address] | of right breast in | | | | [place], | [place], [place] | female, estrogen | | | | [place] [address] | [address] | receptor positive, | | | | [phone] | | unspecified site of | | | | | | breast (HCC) | +--------+ + + + + [...] [address] | | | | | | [facility] [place] | | | | | | [id number] | | | | | | | | +--------+ + + + + documented as of this encounter Procedures + +--------+ + + + | Procedure Name | Priori | Date/Time | Associated Diagnosis | Comments | | | ty | | | | + +--------+ + + + | CT TREATMENT PLAN | Routin | 09/30/2018 | Malignant neoplasm | Results for this | | COMPLEX | e | 11:48 AM | of right breast in | procedure are in the | | | | PST | female, estrogen | results section. | | | | | receptor positive, | | | | | | unspecified site of | | | | | | breast (HCC) | | + +--------+ + + + documented in this encounter Results CT Treatment Plan Complex (09/30/2018 11:48 AM PST) + + | Specimen | + + | | + + + + + | Narrative | Performed At | + + + | This exam has been auto-finalized and the interpretation may exist | [facility] | | elsewhere in the chart. | | + + + + +---------+ + + | Performing | Address | City/State/Zipcode | Phone Number | | Organization | | | | + +---------+ + + | [facility] | | | | + +---------+ + + documented in this encounter Visit Diagnoses + + | Diagnosis | + + | Malignant neoplasm of right breast in female, estrogen receptor positive, unspecified | | site of breast (HCC) | + + documented in this encounter"
--- OUTSIDE RECORDS SUMMARY | ~2019-11-01 | XMS | Encounter Summary ---
Demographics + + + | Address | [address] | | | [place] [address] | + + + | Home Phone | | + + + | Preferred Language | Unknown | + + + | Marital Status | | + + + | Rastafari Affiliation | 1001 | + + + | Race | Unknown | + + + | Ethnic Group | Unknown | + + + Author + + + | Author | [facility] | | | and [place] | + + + | Organization | [facility] | | | and [place] [...] [place] | | | | | [address] | | + + + + + Care Team Providers + +------+ + | Care Figure Model Name | Role | Phone | + [...] [address] | | | | [address] OFF[address] | [address] | | | | | OUTPATIENT | [address] | LILIYA LOVELL, | | | | | [address] | [place], | [place] [address] | | | | | MINUTES | [place] [address] | Phone: | | | | | | Phone: | [phone] | | | | | | [phone] | Fax: | | | | | | Fax: | [phone] | | | | | | [phone] | | +--------+ + + + + + Encounter Details +--------+ + + + + | Date | Type | Department | Care Team | Description | +--------+ + + + + | 09/03/ | Hospital | [facility] | Jojo Henry | Malignant neoplasm | | 2018 | Encounter | [facility] | MD Jessica [address] | of upper-outer | | | | [facility] [address] | [place], [place] | quadrant of right | | | | [address] | [id number] | breast in female, | | | | [place] [address] | | estrogen receptor | | | | [phone] | | positive (HCC) | +--------+ + [...] | | | | | | [place], [place] | | | | | | [address] | | | | | | | | +--------+ + + + + documented as of this encounter Visit Diagnoses + + | Diagnosis | + + | Malignant neoplasm of upper-outer quadrant of right breast in female, estrogen | | receptor positive (HCC) | + + documented in this encounter
--- OUTSIDE RECORDS SUMMARY | ~2019-11-01 | XMS | Encounter Summary ---
Demographics + + + | Address | [address] | | | [place] [address] | + + + | Home Phone | | + + + | Preferred Language | Unknown | + + + | Marital Status | | + + + | Scientology Affiliation | 1001 | + + + | Race | Unknown | + + + | Ethnic Group | Unknown | + + + Author + + + | Author | [facility] | | | and [place] | + + + | Organization | [facility] | | | and [place] | + + + | Address | Unknown | + + + | Phone | Unavailable | + + + Support + + + + + | Name | Relationship | Address | Phone | + + + + + | Bhavesh Hernandes | ECON | [address] | | | | | [place] | | | | | [address] | | + + + + + Care Team Providers + +------+ + | Care Collections Clerk Name | Role | Phone | + +------+ + | Maude Means MD | PCP | | + +------+ + Reason for Visit + + + | Reason | Comments | + + + | Follow-up | | + + + Encounter Details +--------+ + + + + | Date | Type | Department | Care Team | Description | +--------+ + + + + | 11/07/ | Telephone | [facility] | Juanita [facility] | Follow-up | | 2019 | | [facility] | J, RN | | | | | [facility] [address] | | | | | | [address] | | | | | | [place] [address] | | | | | | [phone] | | | +--------+ + + + [...] [place] | | | | | | [id number] | | | | | | | | +--------+ + + + + documented as of this encounter Visit Diagnoses Not on filedocumented in this encounter"
--- OUTSIDE RECORDS SUMMARY | ~2019-11-01 | XMS | Encounter Summary ---
Demographics + + + | Address | [address] | | | [place] [address] | + + + | Home Phone | | + + + | Preferred Language | Unknown | + + + | Marital Status | | + + + | Evangelical Affiliation | 1001 | + + + | Race | Unknown | + + + | Ethnic Group | Unknown | + + + Author + + + | Author | [facility] | | | and [place] | + + + | Organization | [facility] | | | and [place] | + + + | Address | Unknown | + + + | Phone | Unavailable | + + + Support + + + + + | Name | Relationship | Address | Phone | + + + + + | Bhavesh Hernandes | ECON | [address] | | | | | [place] | | | | | [address] | | + + + + + Care Team Providers + +------+ + | Care Nutrition Internship Name | Role | Phone | + +------+ + | Puneet Donovan MD | PCP | | + +------+ + Reason for Visit Auth/Cert +--------+--------+ + + + + | Status | Reason | Specialty | Diagnoses / | Referred By | Referred To | | | | | Procedures | Contact | Contact | +--------+--------+ + + + + | | | | Diagnoses | | | | | | | Atrial | | | | | | | fibrillation | | | | | | | (HCC) | | | | | | | Ulcerative | | | | | | | colitis | | | | | | | without | | | | | | | complication | | | | | | | s, | | | | | | | unspecified | | | | | | | location | | | | | | | ([facility]) | | | | | | | Ulcerative | | | | | | | colitis | | | | | | | without | | | | | | | complication | | | | | | | s, | | | | | | | unspecified | | | | | | | location | | | | | | | ([facility]) | | | | | | | [[id number]] | | | | | | | Procedures | | | | | | | EGD / | | | | | | | COLONOSCOPY | | | +--------+--------+ + + + + Encounter Details +--------+---------+ + + + | Date | Type | Department | Care Team | Description | +--------+---------+ + + + | 01/30/ | Surgery | [facility] | Brett Wing MD | EGD / COLONOSCOPY | | 2016 | | [facility] | [address], [place] | | | | | [address] | [address] [place], [place] | | | | | [place], [place] | [address] | | | | | [address] | | | | | | [phone] | | | +--------+---------+ + + + Social History + +-------+ [...] + + + | Blood Pressure | 100/59 | 02/04/2016 3:00 PM | | | | | PDT | | + + + + + | Pulse | 94 | 02/04/2016 3:00 PM | | | | | PDT | | + + + + + | Temperature | 36.4 C (97.5 F) | 02/04/2016 3:00 PM | | | | | PDT | | + + + + + | Respiratory Rate | 20 | 02/04/2016 3:00 PM | | | | | PDT | | + + + + + | Oxygen Saturation | 98% | 02/04/2016 3:00 PM | | | | | PDT | | + + + + + | Inhaled Oxygen | - | - | | | Concentration | | | | + + + + + | Weight | 80.6 kg (177 lb 11.1 | 02/03/2016 4:16 AM | | | | oz) | PDT | | + + + + + | Height | 165.1 cm (5' 5") | 01/29/2016 12:27 PM | | | | | PDT | | + + + + + | Body Mass Index | 29.57 | 01/29/2016 12:27 PM | | | | | PDT | | + + + + + [...] + + documented as of this encounter Discharge Summaries Richardson Cramer DO - 02/04/2016 4:11 PM PDTFormatting of this note might be different f rom the original. [facility] DISCHARGE SUMMARY Pt. Name/Age/: Yamilet Hernandes 66 y.o. 1950 Date of Admission: 01/29/2016 Date of Discharge: 02/04/2016 Admitting Physician: Richardson Cramer DO Primary Care Provider: Puneet Donovan Discharging Physician: Richardson Cramer DO DISCHARGE DIAGNOSES: Active Hospital Problems Diagnosis Atrial fibrillation with RVR Cough Dysphagia Discitis Ulcerative colitis without complications Hyponatremia Schatzki's ring of distal esophagus Resolved Hospital Problems Diagnosis Leukopenia Rectal bleeding DISCHARGE MEDICATIONS: Discharge Medications New Medications Details apixaban 5 mg tablet Take 1 tablet by mouth 2 times daily. aka: ELIQUIS famotidine 20 mg tablet Take 1 tablet by mouth 2 times daily. aka: PEPCID levofloxacin in dextrose 750 mg/150 mL IVPB Inject 150 mLs into the vein Daily for 10 days. Indications: Intervertebral Disc Inflammat ion aka: LEVAQUIN Start: 02/05/2016 magnesium oxide 400 mg tablet Take 1 tablet by mouth Daily. aka: MAG-OX Start: 02/05/2016 metoprolol succinate 50 mg 24 hr tablet Take 3 tablets by mouth Daily. aka: TOPROL-XL potassium chloride 20 mEq ER tablet Take 1 tablet by mouth daily (with breakfast). aka: K-DUR Start: 02/05/2016 Changed Medications Details HYDROmorphone 2 mg tablet Take 1-2 tablets by mouth every 6 hours as needed for Pain (First option). What changed: - medication strength - how much to take - when to take this - reasons to take this aka: SHAMIKAID Discontinued Medications cefTRIAXone 2 g/100 mL Soln aka: [facility]: Please refer to the H&P for full details and the most recent rounding rounding (progress) n ote. In short this is a 66 y.o. female with a history of ulcerative colitis, recent left knee ar throplasty complicated by apparent discitis for which she takes ceftriaxone, who presents wi th lightheadedness, dizziness, shortness of breath. She had a left TKR on 12/25, and shortly afterwards, developed severe back pain, and was admi tted to [facility] on 01/03 and diagnosed with discitis, and started on 6 weeks of ceftriaxone to finish 02/14. She follows up with Dr. Reddy of infectious disease. Her back pain is large ly resolved, although she is taking hydromorphone PRN for her knee pain. She reports some chronic loose stools, but does not take any chronic meds for ulcerative co litis. Over the last few days, she has noticed increasing shortness of breath, weakness, lighthead edness with standing. No falls. Denies chest pain. Has shortness of breath with any ac tivity, and admits to frequent cough causing abdominal muscle pain. In the emergency department at [place], she was found to have atrial fibrillation wit h RVR, elevated troponin of 0.06 (normal <0.01), and was transferred here for further workup . Atrial fibrillation with RVR - Likely the cause of her shortness of breath, weakness, lightheadedness over the last 4-5 days - No prior diagnosis of any sort of heart disease - Troponins negative - Started on apixaban since admission, held 01/29 in anticipation of EGD/colonoscopy. Restar raman in am 01/31. Continue with Apixaban. - TSH normal, but total T4 elevated, raising question of possible hyperthyroidism. Checked Free T4: low at 1.5. In acute illness thyroid testing is unreliable. Hence will need to rech lisa thyroid function testing once more medically stable in the next 6 weeks. - Chest CT did not show acute disease in the chest - Echo shows grade 2 LV diastolic dysfuction, preserved LV systolic function, moderately di lated left atrium. See full report noted above for more details. - 01/29: HR well controlled on only 5 of diltiazem drip, switchrf to carvedilol in the luisani ng, 6.25 mg bid. - 01/30: HR relatively well controlled in low 100s to 110s, up to 120s with mobility. - 01/31: Am patient back in RVR w/ heart rates in 140s to 150s. Transfer to step down unit a nd will give loading dose of IV Diltiazem followed by diltiazem drip if needed. Hold Coreg. - check Mg and replace if low. Checking EKG. - Dr. Khalil of Cardiology is following, discussed with him in person today, appreciate yolis mmendations. He recommends trial of Toprol XL 100 mg daily once patient has better rate cont rol with diltiazem. - Mg was low at 1.6, hence gave 2 gm Mg rider. - 02/01: Heart rates better controlled in the 80s to 90s, but would go up to 130s with activ ity. Increased Toprol-XL to 150 mg daily. - 02/02: Still having significant tachycardia with activity. - 02/03: No significant tachycardia with activity. Will c/w Toprol XL 150 daily. Mg normal t abdullahi at 1.9. K is 4.4 - increase activity as tolerated. Cough - Has had significant cough for some time, c/o worsening dysphagia - 01/29 Started on famotidine for possible GERD, has history of hiatal hernia. - 01/30 EGD shows Schatzki ring and gastritis with hiatal hernia. Most likely cause. C/w Fam otidine. - CT showed no consolidation or PE - 01/31: Cough is better. - 02/03: Cough continues to get better. Dysphagia - multifactorial. - 01/30: EGD showed Schatzki ring which was dilated. There was also evidence of gastroparesi s, minor antral gastritis. There is also hiatal hernia. - 01/30: restarted patient on clear liquid than advanced to full liquid overnight. - 01/31: c/w full liquids diet - 02/01: doing better, advance diet to soft diet. - 02/02: Tolerated soft diet well, will continue indefinitely on soft diet due to history of Schatzki's ring. Discitis - Denies fevers, back pain greatly improved - 01/29: Discussed with Dr Hagan at [facility], who is covering Dr. Reddy's patients, recommen ded discussing leukopenia/thrombocytopenia with him today, continued ceftriaxone - 01/30: Discussed with Dr. Reddy at [facility], who recommended switching over to once daily Lev aquin IV to finish complete course of therapy with 02/14 being last day of therapy. Patient w ill need to f/u with Dr. Reddy's office in 1 week after discharge from the hospital. Today wa s 1st dose of Levaquin IV. Will need to direct selling counselor patient about risk of tendonitis, tendon rup ture 2/ use of Levaquin. - 01/31: C/w Levaquin. - 02/03: c/w Levaquin and finish a full course of therapy. Last day of therapy 02/14. Ulcerative colitis without complications - Takes no meds - Needs follow up with GI as outpatient, hasn't had colonoscopy since 2005 - Having some diarrhea, but c diff toxin negative - ESR/CRP negative - Discussed with Dr. Wing, given the occasional blood in the stool, the ~ 40 pound weight loss, performed colonoscopy which shows findings most consistent with UC, with biopsies conf irmed the same. Given the mild to moderate degree of inflammation associated with the same t here is no urgency instituting treatment. Patient needs to F/U further recommendations when follow up as outpatient with Dr. Wing as outpatient. Hyponatremia - 01/29: Improved with fluids, Na 135, no acute issues - 01/30: Resolved, NA 141. Wean off IVFs as patient advances diet. - 01/31: Na 137. - 02/01: Na 136. - 02/02: Na still within normal range at 135. - 02/03: Na is stable at 135 Leukopenia - 01/29: WBC of 2.3 and falling. Platelet count down to 84. - WBC was 3.1 last week, range before was 4.7 - 5 - 01/30: WBC stable at 2.3. Plt up to 114 - Discussed holding ceftriaxone with Dr. Reddy today, changed to Levaquin as noted above. - 01/31: WBC better at 2.4. Plt at 110. - ESR/CRP normal - 02/01: WBC better at 3.7. Plt 181 - 02/02: WBC is slightly down at 3.5, Plt stable at 180. - 02/03: WBC is normalized at 4.9. Plt 259 - Plan: c/w Levaquin as noted above. DISPOSITION: Home with home health RN Most recent weight: Input and output for last 24hrs: Wt Readings from Last 1 Encounters: 02/03/16 80.6 kg (177 lb 11.1 oz) I/O last 24 Hours: In: 590 [P.O.:440; IV Piggyback:150] Out: 1800 [Urine:1800] Vitals Ranges: Temp: [35.6 C (96.1 F)-36.4 C (97.5 F)] 36.4 C (97.5 F) Pulse: [84-104] 94 Resp: [16-24] 20 BP: (80-126)/(52-81) 100/59 mmHg Vitals: Temp: 36.4 C (97.5 F) BP: 100/59 mmHg Pulse: 94 Resp: 20 SpO2: 98 % SpO2 98 % on room air at flow rate L/min PHYSICAL EXAM: Patient seen and examined by me on discharge day. General alert, NAD mood and affect normal speech fluent Cardiac irregular irregular, no MRG Extremities no significant edema Lung clear to auscultation no wheezing or rales effort not labored Abdominal + bowel sounds, soft, nontender PROCEDURES AND CONSULTS: Procedures CT ANGIOGRAM PULMONARY . 01/29/2016 4:10 PM HISTORY: Evaluate for pulmomary embolus COMPARISON: None available. TECHNIQUE: Axial images were obtained from the base of the neck to the upper abdomen following the uneventful intravenous administration of 65 mL Omnipaque 350 contrast, with timing of the contrast bolus to maximize opacification of the pulmonary arterial system. Multiplanar reformatted images created. RADIATION DOSE: DLP 349 mGy-cm FINDINGS: Contrast opacification of the pulmonary arterial structures is optimized for the purposes of this study. There is no evidence of filling defect or other abnormality of the pulmonary arterial structures to suggest pulmonary embolism or extrinsic compression. The main pulmonary artery is enlarged, measuring 3.6 cm in diameter, suggestive of pulmonary arterial hypertension. The nonenhanced aorta and branching vessels are within normal limits. Evaluation of the systemic vasculature is limited by early timing of the contrast bolus for the purposes of this pulmonary angiographic study. Central venous line extending from the left upper extremity terminates in the superior vena cava near the confluence of the brachiocephalic veins. The heart is within normal limits, without pericardial effusion. The structures at the base of the neck are unremarkable. No pathologically enlarged mediastinal lymph nodes are evident. There is a small hiatal hernia. Esophagus is otherwise unremarkable in appearance. The trachea is within normal limits. Mild scarring and/or atelectasis is seen at the left lung base. Small air cyst is seen posteriorly in the superior segment of the right lower lobe . Lungs are otherwise clear, without pulmonary nodule or other finding of clinical significance. No pleural effusion or pneumothorax is seen. Other than the small hiatal hernia, the visualized upper abdominal viscera are unremarkable. There is levoconvex curvature of the thoracic spine. Sclerotic foci in the T11 vertebral body favors bone islands. There is diffuse degenerative disc disease with exaggeration of the thoracic kyphosis. There is the appearance of osteopenia. No overt lytic or blastic lesions are seen. The muscles and subcutaneous soft tissues are unremarkable. IMPRESSION - No evidence of pulmonary embolism. Enlargement of the pulmonary artery, as might be seen with pulmonary arterial hypertension. Small hiatal hernia. Degenerative disc disease and spondylotic change, with exaggeration of the thoracic kyphosis and appearance of osteopenia. ECHOCARDIOGRAM REPORT STUDY DATE: 01/30/2016 CLINICAL HISTORY/DIAGNOSIS: A FIB A transthoracic echocardiogram with M-mode, pulsed-wave and color Doppler was performed wit h standard views obtained. The technical quality of this examination is fair. The heart rhythm during the echo is atrial fibrillation. The M-mode, two-dimensional, color flow and spectral Doppler data were reviewed and support the following interpretation: Interpretation: Left Atrium: Moderately dilated, volume index 43. Left ventricle: Mild to moderate septal hypertrophy, not well characterized. Probably nor mal wall motion though not all segments were well defined. The estimated ejection fraction is 64%. Grade 2 left ventricular diastolic dysfunction. Aortic root: Aortic root is normal. Right Atrium: Normal volume Right ventricle: Right ventricular size is normal with normal wall thickness and normal r ight ventricular systolic function. Pericardium: No effusion seen Pulmonary artery: Probably normal in size Aortic valve: Aortic valve is trileaflet and opens normally. mild regurgitation is presen t Mitral valve: Mitral valve is normal. Pulmonic valve: Grossly normal but not well imaged. Tricuspid valve: Tricuspid valve is normal. Vena cava: Appeared to be dilated. Dynamics were not well demonstrated IMPRESSIONS: Atrial fibrillation present throughout the study Moderate left atrial enlargement. Mild left ventricular septal hypertrophy without obstruction. Mild aortic valvular regurgitation. Left ventricular diastolic dysfunction, probably grade 2. PROCEDURES: Upper endoscopy was remarkable for a hiatal hernia with a Schatzki's ring that was dilated with 48 [place] dilator. There was gastroparesis minor antral gastritis H. pylori b iopsy was obtained via mucosa appeared normal. Colonoscopy was remarkable for mild progres sing to moderate colitis from the rectum to the mid transverse colon. Stool cultures were obtained random biopsies were obtained from the left colon. The cecum and ascending and pr oximal transverse colon had normal mucosa. SPECT the patient's weight loss is due to gastr oparesis possible gastritis. Although the appearance of the colitis appeared to be inflamm atory rather than C. diff ulcers were obtained for C. Diff. Consults Orville Khalil MD Cardiology Brett Wing MD Gastroenterology Jorge Reddy DO Infectious Disease (discussed case over the phone) PENDING RESULTS: CBC, BMP, Mg to be obtained on 02/06 with results sent to your PCP and Dr. Reddy's office. DISPOSITION AND DISCHARGE INSTRUCTIONS: Follow-up Information Follow up with Puneet Donovan. Schedule an appointment as soon as possible for a v isit in 1 week. Why: For hospital follow up Contact information: [address] [place] [address] Follow up with Brett Wing MD. Schedule an appointment as soon as possible for a visit in 2 weeks. Specialty: Gastroenterology Why: For follow up of your Ulcerative colitis Contact information: [address], [place] [address] [facility] [phone] Follow up with Jorge Reddy DO. Schedule an appointment as soon as possible for a visit i n 1 week. Specialty: Internal Medicine Why: For follow up on your history and treatment of Diskitis Contact information[facility] [address] [facility] [address] Condition: Patient being discharged with condition improved. Diet: Dental soft, fiber restricted, vegetarian, please make sure to drink plenty of liquid s to keep good oral fluid hydration up to 2 L of fluids per day. Greater than 30 minutes were spent on discharge and coordination of post-hospital care. Electronically signed by: Richardson Cramer DO, 02/04/2016 16:11 [facility] Portions of this chart may have been created with [employer] voice recognition software. Occasi onal wrong-word or sound-alike substitutions may have occurred due to the inherent jack itations of voice recognition software. Please read the chart carefully and recognize, using context, where these substitutions have occurred documented in this encounter Discharge Instructions Instructions Richardson Cramer DO - 02/04/2016Formatting of this note might be different f rom the original. Gastroparesis Gastroparesis (also called delayed gastric emptying) occurs when the stomach takes longer t paredes normal to empty of food. This is due to a problem with motility (the movement of the mus cles in the digestive tract). For many people, gastroparesis is a lifelong condition. But tr eatment can help relieve symptoms and prevent complications. Read on to learn more about gas troparesis and how it can be managed. How gastroparesis develops Gastroparesis means that food and fluids move too slowly out of the stomach into the duoden um. With normal motility, signals from nerves tell the stomach muscles when to contract. These muscles move food from the stomach into the duodenum (the first part of the small bowel). Wi th gastroparesis, the nerves or muscles are damaged. This causes motility to slow down or st op completely. As a result, food cannot move from the stomach properly. This delayed emptyin g can cause nausea, vomiting, and other symptoms. Malnutrition can result. Bezoars (hardened lumps of food) can form in the stomach and cause other complications as well. Causes of gastroparesis Gastroparesis can be caused by any of the following: Diabetes Surgery involving any of the digestive organs, such as the stomach and bowels Certain medications, such as strong pain medicines (narcotics) Certain conditions, such as systemic scleroderma, Parkinson s disease, and thyroid dis ease In many cases, the cause of gastroparesis cannot be found. Signs and symptoms of gastroparesis These can include: Nausea and vomiting Feeling full quickly when eating Abdominal pain Heartburn Abdominal bloating Weight loss Loss of appetite High and low blood sugar levels (in people withdiabetes) Diagnosing gastroparesis Your doctor will ask about your symptoms and health history. You ll also be examined. In addition, blood tests and X-rays are often done to check your health and rule out other prob lems. To confirm the problem, you may need other tests as well. These can include: Upper endoscopy.This is doneto see inside the stomach and duodenum. For the test, an endoscope is used. This is a thin, flexible tube with a tiny camera on the end. It s inse rted through the mouth and down into the stomach and duodenum. Upper gastrointestinal (GI) series.This is doneto take X-rays of the upper GI tract from the mouth to the small bowel. For the test, a substance called barium is used. The evelyn um coats the upper GI tract so that it will show up clearly on X-rays. Gastric emptying scan.This is done to measure how quickly food leaves the stomach. For the test, a meal containing a harmless radioactive substance (tracer) is eaten. Then scans of the stomach are done. The tracer shows up clearly on the scans and shows the movement of the food through the stomach. Treating gastroparesis The goal of treatment is to help you manage your condition. Treatment may include one or mo re of the following: Dietary changes.You may need to make changes to your eating habits and daily diet. For instance, your doctor may instruct you to eat small meals throughout the day. Doing this ca n keep you from feeling full too quickly. You may be placed on a liquid or soft diet. This means you ll eat liquid foods or foods that are mashed or put through a spray blender. In a ddition, you may need to avoid foods high in fats and fiber. These can slow digestion. For m ore help with your diet, your doctor can refer you to a dietitian. In severe cases, you may need a feeding tube. This sends liquid food or medication directly to your small bowel, bypa ssing the stomach. Medicines.These can help manage symptoms, such as nausea and vomiting. They can also i mprove motility. Each medicine has specific risks and side effects. Your doctor can tell you more about any medicine that is prescribed for you. Surgery.You may need to have a tube surgically inserted into the stomach. The tube rem oves excess air and fluid. This can relieve severe symptoms of nausea and vomiting. In rare cases, other surgery may be needed on the stomach or small bowel. This is to create a new pa ssageway for food to be emptied from the stomach. Gastric electrical stimulation. This treatment is done less often and may not be availab le. Your doctor can tell you more about this treatment if it is a choice for you. Diabetes and gastroparesis If you have diabetes, gastroparesis can make it harder to manage your blood sugar level. Yo u ll need to take extra steps in your treatment to prevent complications. Work with your d octor to learn what you can do to protect your health. For more information, contact the [place] [employer] [employer],www.diabetes.org. Long-term concerns With treatment, most people can manage their symptoms and maintain their usual routines. If your symptoms are moderate to severe, you may need to see your doctor more frequently for c heckups. Also, other treatments will likely be needed. [id number] [employer]. [address] [place] [address]. All righ ts reserved. This information is not intended as a substitute for professional medical care. Always follow your healthcare professional's instructions. Gastritis (Adult) Gastritis isinflammation andirritation of the stomach lining.It can be present for a short time (acute) or be long lasting (chronic). Gastritis is often caused by infection with bacteria calledH pylori.More than a third of people in the [place] have this bacteria in the ir bodies. In many cases,H pyloricauses no problems or symptoms. In some people, though, the infection irritates the stomach lining and causes gastritis. Other causes of stomach ir ritation include drinking alcohol or taking pain-relieving medicines called NSAIDs (such as aspirin or ibuprofen). Symptoms of gastritis can include: Abdominal pain or bloating Loss of appetite Nausea or vomiting Vomiting blood or having black stools Feeling more tired than usual An inflamed and irritated stomach lining is more likely to develop a sore called an ulcer. To help prevent this, gastritis should be treated. Home care If needed, medicines may be prescribed. If you haveH pyloriinfection, treating it will likely relieve your symptoms. Other changes can help reduce stomach irritation and help it h eal. If you have been prescribed medicines forH pyloriinfection, take them as directed. T luis enrique all of the medicine until it is finished or your healthcare provider tells you to stop, even if you feel better. Your healthcare provider may recommend avoiding NSAIDs. If you take daily aspirin for yo ur heart or other medical reasons, do not stop without talking to your healthcare provider f irst. Avoid drinking alcohol. Stop smoking. Smoking can irritate the stomach and delay healing. As much as possible, s jimmie away from second hand smoke. Follow-up care Follow up with your healthcare provider, or as advised by our staff. Testing may be needed to check for inflammation or an ulcer. When to seek medical advice Call your healthcare provider for any of the following: Stomach pain that gets worse or moves to the lower right abdomen (appendix area) Chest pain that appears or gets worse, or spreads to the back, neck, shoulder, or arm Frequent vomiting (can t keep down liquids) Blood in the stool or vomit (red or black in color) Feeling weak or dizzy Fever of 100.4F (38C) or higher, or as directed by your healthcare provider [phone] [employer]. [address] [place] [address]. All righ ts reserved. This information is not intended as a substitute for professional medical care. Always follow your healthcare professional's instructions. Discharge Instructions for Atrial Fibrillation You have been diagnosed with atrial fibrillation.With this condition, your heart stwo upper chambers quiver rather than squeeze the blood out in a normal pattern. This leads to an irregular and sometimes rapid heartbeat. Some people will develop associated symptoms suc h as a flip-flopping heartbeat, lightheadedness, or shortness of breath. Other people may keating ve no symptoms at all. Atrial fibrillation is serious because it affects the heart s abili ty to fill with blood as it should. Blood clots may form. This increases the risk for stroke . Untreated atrial fibrillation can also lead to heart failure. Atrial fibrillation can be c ontrolled. Withtreatment, mostpeople with atrial fibrillation lead normal lives. It is e stimated that over 2.5 million Americans have atrial fibrillation. Treatment options Recommended treatment for atrial fibrillation depends on your age, symptoms, how long you h ave had atrial fibrillation, and other factors. You will havea complete evaluation to find out if you have any abnormalities that caused your heart to go into atrial fibrillation. Th is might be blocked heart arteries or a thyroid problem. Your doctor will assess your partic ulmilad case and discuss choices with you. Treatment choices may include: Treating an underlyingdisorder that puts you at risk for atrial fibrillation. For exam ple, correcting an abnormal thyroid or electrolyte problem, or treating a blocked heart candie ry. Restoring a normal heart rhythm with an electrical shock (cardioversion) or with an anti arrhythmic medicine (chemical cardioversion) Using medication to control your heart rate in atrial fibrillation. Preventing therisk for blood clot and stroke using blood-thinning medicines. Your doct or will tell you what he or sherecommends. Choices may include aspirin, clopidogrel, warfa rin, dabigatran, rivaroxaban, or apixaban. Doing catheter ablation or maze procedure. Theseuse different methods to destroy certa in areas of heart tissue. This interrupts the electrical signals causing atrial fibrillation .One of these procedures may be a choice whenmedicines do not work. Other treatment choices may be recommended for you by your doctor. Managing risk factors for stroke and preventing heart failure are important parts of anyt reatment plan for atrial fibrillation. Home care Take your medicines exactly as directed. Don t skip doses. Work with your doctor to find the right medicaines and doses for you. Learn to take your own pulse. Keep a record of your results. Ask your doctor which pulse rates mean that you need medical attention. Slowing your pulse is often the goal of treatme nt. Ask your doctor if it s OK for you to use an automatic machine to check your pulse at home. Sometimes these machines don t count the pulse correctly when you have atrial fibril lation. Limit your intake of coffee, tea, cola, and other beverages with caffeine fu0rmwe pe r day. Talkwith your doctor about whether you should eliminate caffeine. Avoid sntq-ubk-ltcboen medicines that have caffeine in them. Let your doctor know what medicines you take, including prescription and pjcd-fdb-vxdngb r medicines, as well as any supplements. They interfere with some medicines given for atrial fibrillation. Ask your doctor about whetheryou can drink alcohol. Some people need to avoidalcohol to better treat atrial fibrillation. If you are taking blood-thinner medicines, alcohol ma y interfere with them by increasing their effect. Never take stimulants such as amphetamines or cocaine. These drugs can speed upyour he art rate and trigger atrial fibrillation. Follow-up Make a follow-up appointment as directed by our staff. When to call your doctor Call your doctor immediately if you have any of the following: Weakness Dizziness Fainting Fatigue Shortness of breath Chest pain with increased activity A change in the usual regularity of your heartbeat, or an unusually fast heartbeat [id number] [employer]. [address] [place] [address], [place] [address]. All righ ts reserved. This information is not intended as a substitute for professional medical care. Always follow your healthcare professional's instructions. Living with Atrial Fibrillation: Preventing Stroke Atrial fibrillation (AFib) is a type of abnormal heart rhythm. The heart has 2 upper chambe rs called atria and 2 lower chambers called ventricles. AFib causes the atria to quiver (fib rillate) instead of pumping normally. Blood can then pool in the heart instead of moving in and out as usual. This can cause clots to form in the blood. A clot can travel to the brain and cause a stroke. A stroke can cause brain damage very quickly. Taking medicine to prevent stroke Your health care provider may prescribe a medicine to help prevent blood clots. This type o f medicine is called a blood thinner. Blood thinners include: Antiplatelet medicines, such as aspirin or clopidrogrel Anticoagulation medicines, such as warfarin, dabigatran, rivaroxaban, or apixaban Risks of blood thinner medicine Blood thinners increase your risk of bleeding. If you take certain blood thinners, you may need to take extra steps to stay healthy. You may need regular blood tests to check the leve ls of medicine in your blood. You ll need to be careful to not injure yourself. And you ma y need to watch your diet for foods that also affecting blood clotting. If your blood is too thin, you may have symptoms of excess bleeding, such as: Unusual bruising Bleeding from the gums Blood in the urine or stool Vomiting blood Nosebleeds An unusual or severe headache Taking the right dose You ll need to make sure to take the medicine exactly as directed by your health care pro vider. Take it at the same time each day. If you miss a dose, call your provider right away to find out how much to take. Never take a double dose. If you take too much, it can cause t oo much bleeding. It can cause bleeding you can see, on the outside of your body. And it can cause bleeding on the inside of your body. Getting your blood tested Depending on which blood thinner you take, you may need to have your blood tested on a regu lar schedule. This is to make sure you don t have too much or too little of the medicine i n your blood. Too much can cause excess bleeding. Too little may not prevent blood clots fro m harming you. You may need to visit a hospital or clinic every week to have your blood tested. Or a nurse may come to your home and test your blood. In some cases, you may be able to test your bloo d at home with a small machine. Talk with your health care provider to find out what s bes t for you. After the blood test, your health care provider may tell you to change your dose of medicine. Watching your diet Some foods can affect how certain blood thinners work. For example, many foods contain mariann min K. Vitamin K is a substance that helps your blood clot. You don t need to avoid foods that have vitamin K. But you do need to keep the amount of them you eat steady -- about the same day to day. Examples of foods high in vitamin K are asparagus, avocado, broccoli, cabba ge, kale, spinach, and some other leafy green vegetables. Oils, such as soybean, canola, and olive, are also high in vitamin K. Other foods and drinks can affect the way blood thinners work in your body. These include: Grapefruit and grapefruit juice Cranberries and cranberry juice Fish oil supplements Garlic, jonatan, licorice, and turmeric Herbs used in herbal teas or supplements Alcohol If any of these items are part of your regular diet, continue using them as you normally wo uld. Don t make any major changes in your diet without first talking with your health care provider. You may also need to limit fats in your diet to 2 to 4 tablespoons a day. Preventing injury Because blood thinners make you bleed more, you ll need to protect yourself from breaks i n the skin. You ll need to: Not go barefoot always wear shoes Not trim corns or calluses yourself Use an electric razor instead of a manual one Use a soft-bristled toothbrush and waxed dental floss You ll also need to avoid any activities that may cause injury. If you fall or are injure d, you could be bleeding inside your body and not know it. Make sure to get medical attentio n right away if you fall, hit your head, or have any other kind of injury. Other safety tips While on your medicine, be sure to: Tell all of your health care providers that you take a blood thinner for AFib. This incl udes all of your doctors, dental care providers, and your pharmacist. Ask your doctor before taking any new medicines, vitamins, or other supplements. Any of these can cause problems when you take a blood thinner. Wear a medical alert bracelet or carry an ID card in your wallet if you will be taking b lood thinners for months or longer. Keep all appointments for your blood tests. Other ways to help prevent stroke Your health care provider might give you other advice about how to lower your risk for stro ke, such as: Lowering your cholesterol with lifestyle changes or medicine Not smoking Getting physical activity Losing weight if needed Eating a heart-healthy diet Not drinking too much alcohol When to call your health care provider Call your health care provider right away if you have any of these: Unusual or severe headache Confusion, weakness, or numbness Bleeding that won t stop Coughing or vomiting blood Bright red blood in the stool Fall or injury to the head Symptoms of atrial fibrillation that are new or getting worse [id number] [employer] [place] [address]. All righ ts reserved. This information is not intended as a substitute for professional medical care. Always follow your healthcare professional's instructions. Discharge Instructions for Hyponatremia You were diagnosed with hyponatremia, which means your blood level of sodium (salt) is too low. Salt is needed for the body and brain to work. Very low blood levels of sodium can be f atal. Symptoms can include headache, confusion, fatigue, muscle cramps, hallucinations, seiz ures, and coma.You have been treated to raise your blood levels of sodium. The following i nstructions will help you care for yourself at home as you have been instructed. Home care Limit your intake of fluids. Drink only the amounts directed by your healthcare provider . Ask your healthcare provider what you should use to replace fluids if you are throwing u p. Keep all follow-up appointments. Your provider needs to watch your condition closely. To help prevent hyponatremia: Take all medicines exactly as directed. Certain medicines can lower blood sodium levels. If you have done something that makes you sweat a lot, drink fluids that contain salt an d other electrolytes. Tell all healthcare providers what medicines you take. Mention all prescription and over -the-counter drugs and herbs. Have your sodium levels checked often. This is vital if you take a diuretic (medicine th at helps your body get rid of water). Follow-up Schedule a follow-up visit as directed. When to call your healthcare provider Call your provider right away if you have any of the following: Severe tiredness Fainting Dizziness Loss of appetite Nausea or vomiting Confusion or forgetfullness Muscle spasms, cramping, or twitching Seizures Gait disturbances [phone] [employer] [place] [address]. All righ ts reserved. This information is not intended as a substitute for professional medical care. Always follow your healthcare professional's instructions. Management of Ulcerative Colitis: Lifestyle You can lead a full life even if you have ulcerative colitis. Focus on keeping your symptom s under control. And don t let this disease isolate you. By planning ahead and working wit h support groups, you can find ways to cope. And you may even help others who have ulcerativ e colitis. Ulcerative colitis is a type of inflammatory bowel disease (IBD). Have a plan Make this your goal: Ulcerative colitis won t keep me from the activities I enjoy. You may need to do some planning to reach that goal. But by staying positive, you can help m luis enrique sure you re in control not ulcerative colitis. Here are some other tips: Know where to find clean bathrooms. Eat more small meals instead of 3 big meals, especially when on the road or when you don t have easy access to bathrooms. If you ve had a recent flare-up, eat foods that you know will limit your symptoms. Barrie p those foods on hand, both at home and at work. Get some exercise every day. Take a stress reduction class. If going on a long trip, discuss your plans with your health care provider. He or she ca n teach you what to do if you have a flare-up while on the road. Find a support group Ulcerative colitis support groups can help you with many concerns you may have. Other peopl e have felt much of what you may be feeling. Just knowing that you re not alone can be a g reat comfort. Or someone in a support group may offer a travel tip or a coping skill that s perfect for you. And don t forget how satisfying it can feel to help another ulcerative colitis patient who s in need. Contact the [facility] toll-free at . Managing nutrition You may be able to eat most foods until you have a flare-up. But like anyone else, you need to make healthy eating choices. Some of the healthiest foods can make symptoms worse, machog h. Keeping track of your problem foods may be helpful. Ask yourhealth care provider any questions you have about healthy eating. Avoid your problem foods There s no rule for which foods can be a problem. How you feel after eating them is the b est guide. You may need to avoid high-fiber foods and foods that are hard to digest. These c an include fresh fruits and vegetables. High-fat foods, such as whole-milk dairy products an d red meat, also can worsen symptoms in a flare-up. Write down what you eat and how it affec ts you. If one kind of food often gives you trouble, stay away from it. Also note the foods that work well for you. Yourhealth care providermay have you see a combination welder to come up with the best food choices for you. A combination welder can help ensure that you eat foods marichuy t are safe while getting proper nourishment. Foods that are often safe No two people respond the same to all foods. But these choices are often safe to eat during a flare-up: Applesauce Republic toast Flavored gelatin Vanilla pudding Custard White rice Plain pasta Canned peaches or pears Baked potatoes Tuna packed in water Mashedpotatoes Skinless chicken Instant oatmeal [id number] [employer]. [address] [place] [address], [place] [address]. All righ ts reserved. This information is not intended as a substitute for professional medical care. Always follow your healthcare professional's instructions. ADDITIONAL INSTRUCTION: 1. Please make sure to keep good oral fluid hydration up to 2 L of fluids per day. 2. Continue with soft diet due to history of esophageal stricture secondary to Schatzki's ring requiring dilation 3. You have been prescribed new IV antibiotic, Levofloxacin as your previous antibiotic, R ocephin was causing leukopenia. Please refer to Levofloxacin drug information for possible side-effects. Please be where about risk of tendonitis and tendon rupture which may present with tendon pain due to Levofloxacin use. Your last dose of Levofloxacin will be 02/14. Marc garvey follow up with Dr. Reddy's office in 1 week after discharge from the hospital. 4. Your colon biopsies were positive for Ulcerative colitis. Given the mild to moderate d egree of inflammation associated with the same there is no urgency instituting treatment and Dr. 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 AttachmentsThe following attachments cannot be sent through [facility] Every[facility].ESOPHAGEAL DILA TION (MOHAWK)DYSPHAGIA, TREATING (MOHAWK)DYSPHAGIA, UNDERSTANDING (MOHAWK)LEVOFLOXACIN OR AL TABLET (MOHAWK)documented in this encounter Medications at Time of Discharge [...] + + + +---------+ + + | famotidine | Take 1 tablet by | 60 | 1 | 02/04/20 | | | (PEPCID) 20 mg | mouth 2 times daily. | tablet | | 16 | 8 | | tablet | | | | | | + + + +---------+ + + | HYDROmorphone | Take 1-2 tablets by | 30 | 0 | 02/04/20 | | | (DILAUDID) 2 mg | mouth every 6 hours | tablet | | 16 | 8 | | tablet | as needed for Pain | | | | | | | (First option). | | | | | + + + +---------+ + + | levofloxacin in | Inject 150 mLs into | 11 each | 0 | 02/05/20 | | | dextrose (LEVAQUIN) | the vein Daily for | | | 16 | 6 | | 750 mg/150 mL | 10 days. | | | | | | IVPBIndications: | Indications: | | | | | | Discitis | Intervertebral Disc | | | | | | | Inflammation | | | | | + + + +---------+ + + documented as of this encounter Progress Notes Harri, Brett E, MD - 02/03/2016 2:26 PM PDTThe patient's biopsies were positive for Ulcera tive colitis. Given the mild to moderate degree of inflammation associated with the same th ere is no urgency instituting treatment and if the patient is discharged over the weekend I will be glad to see her and follow-up in the office to discuss treatment for chronic UC. Ot herwise I will begin the discussion on Saturday Dr. Wells [id number] is river transportation worker over the weekend and will not see the patient unless requested Tim House RN - 02/03/2016 11:40 AM PDTMetopro lol total 200 mg po given. Ambulated around the hallway using walker. HR 103-110's. A.Fib.El ectronically signed by Tim Ruiz RN at 02/03/2016 11:41 AM Richardson Brand DO - 02/03/2016 9:29 AM PDT [facility] PROGRESS NOTE Patient: Yamilet Hernandes : 1950: Age: 66 y.o. MedRec: [id number] PCP: Puneet Donovan Admission date: 01/29/2016 Hospital day # : 5 Physician author: Richardson Cramer DO Today: 02/03/2016 Allergies: Allergies Allergen Reactions Penicillins Rash Shellfish Rash Sulfa Antibiotics Rash Aspirin History of colitis Azathioprine Nausea And Vomiting Azithromycin Nausea And Vomiting Celecoxib Codeine Nausea And Vomiting Erythromycin Nausea And Vomiting Fish Oil Gabapentin Hydrocodone Nausea And Vomiting Ibuprofen Meloxicam Mesalamine Orphenadrine Oxycodone Nausea And Vomiting Current Medications: Current Facility-Administered Medications Medication Dose Route Frequency Provider Last Rate Last Dose apixaban (ELIQUIS) tablet 5 mg 5 mg Oral BID Richardson Cramer DO 5 mg at 02/03/16 0 837 famotidine (PEPCID) tablet 20 mg 20 mg Oral BID Rcio Vasquez MD 20 mg at 0837 HYDROmorphone (DILAUDID) injection 1-2 mg 1-2 mg Intravenous Q2H PRN Rico Vasquez MD HYDROmorphone (DILAUDID) tablet 2-4 mg 2-4 mg Oral Q3H PRN Rico Vasquez MD 2 mg at 02/03/16 0629 lactated ringers (LR) infusion Intravenous Continuous Tima Romo MD Stopped at 01/31/16 1700 levofloxacin in dextrose (LEVAQUIN) IVPB 750 mg 750 mg Intravenous Daily Richardson spain, DO 100 mL/hr at 02/03/16 0840 750 mg at 02/03/16 0840 metoclopramide (REGLAN) 5 mg/mL injection 10 mg 10 mg Intravenous Q6H PRN Rico shirley MD 10 mg at 01/30/16 1721 metoprolol succinate (TOPROL-XL) ER tablet 150 mg 150 mg Oral Daily Richardson Cramer, DO 150 mg at 02/03/16 0837 nitroglycerin (NITROSTAT) SL tablet 0.4 mg 0.4 mg Sublingual Q5 Min PRN Orville schmitz MD ondansetron (ZOFRAN) injection 4 mg 4 mg Intravenous Q4H PRN Rico Vasquez MD 4 mg at 01/30/16 1633 potassium chloride (K-DUR) ER tablet 20 mEq 20 mEq Oral Daily with breakfast Rico Vasquez MD 20 mEq at 02/03/16 0837 Current Infusions: lactated ringers Stopped (01/31/16 1700) Objective Data Labs Recent Labs Lab 02/03/16 0420 02/02/16 1153 02/01/16 0458 01/31/16 0741 WBC 3.5* 3.7* 2.4* 2.3* HGB 12.6 12.7 11.7 11.9 HCT 38.1 38.8 35.3 35.4 PLT 180 181 110* 114* NEUPCT -- 60.5 51.1 55.7 MONPCT -- 9.2 11.6 10.4 No results for input(s): PROTIME, INR in the last 168 hours. No results for input(s): PTT in the last 168 hours. Recent Labs Lab 02/03/16 0420 02/02/16 0528 02/01/16 0458 01/30/16 0133 GLU 94 99 89 < > 87 NA 135* 136 137 < > 135* K 4.2 4.0 3.8 < > 3.5 CL 104 103 104 < > 102 CO2 25 25 26 < > 23* ANIONGAP 6 8 7 < > 10 BUN 5* 4* 5* < > 8 CREA 0.83 0.80 0.73 < > 0.68 GFRNONAA >60 >60 >60 < > >60 CALCIUM 9.5 9.1 8.7 < > 8.4 ALBUMIN -- -- -- -- 2.7* TOTALPROTEIN -- -- -- -- 4.9* BILITOT -- -- -- -- 0.5 ALKPHOS -- -- -- -- 93 ALT -- -- -- -- 31 AST -- -- -- -- 59* < > = values in this interval not displayed. Recent Labs Lab 01/30/16 0130 BNP 157* Recent Labs Lab 02/03/16 0420 02/02/16 0528 02/01/16 1032 MG 2.0 2.0 1.6* No results for input(s): PHOS in the last 168 hours. No results for input(s): AMYLASE, LIPASE in the last 168 hours. No results for input(s): AMMONIA in the last 168 hours. No results for input(s): TROPONINI, CK, CKMB in the last 168 hours. Invalid input(s): CKTOTAL No results for input(s): PHART, PO2ART, HQW1TUA, DRX2SGF, BEART, U0NVOOIS in the last 168 h ours. No results for input(s): SPECSOURCE, PHPOCB, HCO3, TCO2, BEART, BE, JHVV6QCU in the last 16 8 hours. Invalid input(s): INGOM2MW, SJXS2OH ECHOCARDIOGRAM REPORT STUDY DATE: 01/30/2016 CLINICAL HISTORY/DIAGNOSIS: A FIB A transthoracic echocardiogram with M-mode, pulsed-wave and color Doppler was performed wit h standard views obtained. The technical quality of this examination is fair. The heart rhythm during the echo is atrial fibrillation. The M-mode, two-dimensional, color flow and spectral Doppler data were reviewed and support the following interpretation: Interpretation: Left Atrium: Moderately dilated, volume index 43. Left ventricle: Mild to moderate septal hypertrophy, not well characterized. Probably nor mal wall motion though not all segments were well defined. The estimated ejection fraction is 64%. Grade 2 left ventricular diastolic dysfunction. Aortic root: Aortic root is normal. Right Atrium: Normal volume Right ventricle: Right ventricular size is normal with normal wall thickness and normal ri ght ventricular systolic function. Pericardium: No effusion seen Pulmonary artery: Probably normal in size Aortic valve: Aortic valve is trileaflet and opens normally. mild regurgitation is present Mitral valve: Mitral valve is normal. Pulmonic valve: Grossly normal but not well imaged. Tricuspid valve: Tricuspid valve is normal. Vena cava: Appeared to be dilated. Dynamics were not well demonstrated IMPRESSIONS: Atrial fibrillation present throughout the study Moderate left atrial enlargement. Mild left ventricular septal hypertrophy without obstruction. Mild aortic valvular regurgitation. Left ventricular diastolic dysfunction, probably grade 2. PROCEDURES: Upper endoscopy was remarkable for a hiatal hernia with a Schatzki's ring that was dilated with 48 Dominican Vega dilator. There was gastroparesis minor antral gastritis H. pylori b iopsy was obtained via mucosa appeared normal. Colonoscopy was remarkable for mild progres sing to moderate colitis from the rectum to the mid transverse colon. Stool cultures were obtained random biopsies were obtained from the left colon. The cecum and ascending and pr oximal transverse colon had normal mucosa. SPECT the patient's weight loss is due to gastr oparesis possible gastritis. Although the appearance of the colitis appeared to be inflamm atory rather than C. diff ulcers were obtained for C. Diff. Point of care glucose: No results for input(s): POCGLU in the last 168 hours. Serial weights: Filed Weights: 01/29/16 1227 01/30/16 0402 02/02/16 0400 02/03/16 0416 Weight: 82.2 kg (181 lb 3.5 oz) 82.4 kg (181 lb 10.5 oz) 79.788 kg (175 lb 14.4 oz) 80.6 kg (177 lb 11.1 oz) Most recent weight: Input and output for last 24hrs: Wt Readings from Last 1 Encounters: 02/03/16 80.6 kg (177 lb 11.1 oz) I/O last 24 Hours: In: 1340 [P.O.:1340] Out: 1500 [Urine:1500] I/O last 3 completed shifts: In: 1840 [P.O.:1740; I.V.:50; IV Piggyback:50] Out: 2400 [Urine:2400] Vitals Ranges: Temp: [36 C (96.8 F)-37 C (98.6 F)] 36 C (96.8 F) Pulse: [75-100] 94 Resp: [18-24] 18 BP: (95-122)/(61-111) 122/111 mmHg Vitals: Temp: 36 C (96.8 F) BP: (!) 122/111 mmHg Pulse: 94 Resp: 18 Sp O2: 98 % SpO2 98 % on room air at flow rate L/min Subjective Patient is seen for follow up today. No acute events overnight. On warp placer yesterday patient has remained well controlled in the 80s to 90s, but di d go up into 130s with activity. Hence I gave patient an extra dose of 50 mg Toprol XL on t op of 100 mg she received that morning. Since then patient's been still well-controlled 80s and 90s at rest, but overnight and evening would still would go up to 120s with activity al though less sustained. This morning she is mainly staying 80s and 90s, with mild activity g oing up to 110s to 120s again. Patient denying any chest pain or palpitations or dizziness o r lightheadedness. Patient denies any abdominal pain. Still having some cough with some phlegm, but it's more upper airway and more clear. Cough is getting better. Tolerated soft diet well. Wants to g et up and more around more again today, stated it felt good to be able to move around yester day. ROS See above Exam General alert, NAD mood and affect normal speech fluent Cardiac irregular irregular, no MRG Extremities no significant edema Lung clear to auscultation no wheezing or rales effort not labored Abdominal + bowel sounds, soft, nontender Assessment and Hospital Course Active Hospital Problems Diagnosis Atrial fibrillation with RVR Cough Dysphagia Discitis Ulcerative colitis without complications Hyponatremia Leukopenia Rectal bleeding Resolved Hospital Problems Diagnosis No resolved problems to display. Plan Atrial fibrillation with RVR - Likely the cause of her shortness of breath, weakness, lightheadedness over the last 4-5 days - No prior diagnosis of any sort of heart disease - Troponins negative - Started on apixaban since admission, held 01/29 in anticipation of EGD/colonoscopy. Restar raman in am 01/31. Continue with Apixaban. - TSH normal, but total T4 elevated, raising question of possible hyperthyroidism. Checked Free T4: low at 1.5. In acute illness thyroid testing is unreliable. Hence will need to rech lisa thyroid function testing once more medically stable in the next 6 weeks. - Chest CT did not show acute disease in the chest - Echo shows grade 2 LV diastolic dysfuction, preserved LV systolic function, moderately di lated left atrium. See full report noted above for more details. - 01/29: HR well controlled on only 5 of diltiazem drip, switchrf to carvedilol in the morni ng, 6.25 mg bid. - 01/30: HR relatively well controlled in low 100s to 110s, up to 120s with mobility. - 01/31: Am patient back in RVR w/ heart rates in 140s to 150s. Transfer to step down unit a nd will give loading dose of IV Diltiazem followed by diltiazem drip if needed. Hold Coreg. - check Mg and replace if low. Checking EKG. - Dr. Khalil of Cardiology is following, discussed with him in person today, appreciate yolis mmendations. He recommends trial of Toprol XL 100 mg daily once patient has better rate cont rol with diltiazem. - Mg was low at 1.6, hence gave 2 gm Mg rider. - 02/01: Heart rates better controlled in the 80s to 90s, but would go up to 130s with activ ity. Increased Toprol-XL to 150 mg daily. - 02/02: Still having significant tachycardia with activity. Will increase Toprol XL up to 200 daily and will monitor on telemetry closely to see how she does. Mg normal today. - increase activity as tolerated. Cough - Has had significant cough for some time, c/o worsening dysphagia - 01/29 Started on famotidine for possible GERD, has history of hiatal hernia. - 01/30 EGD shows Schatzki ring and gastritis with hiatal hernia. Most likely cause. C/w Fam otidine. - CT showed no consolidation or PE - 01/31: Cough is better. - 02/02: Cough continues to get better. Dysphagia - multifactorial. - 01/30: EGD showed Schatzki ring which was dilated. There was also evidence of gastroparesi s, minor antral gastritis. There is also hiatal hernia. - 01/30: restarted patient on clear liquid than advanced to full liquid overnight. - 01/31: c/w full liquids diet - 02/01: doing better, advance diet to soft diet. - 02/02: Tolerated soft diet well, will continue indefinitely on soft diet due to history of Schatzki's ring. Discitis - Denies fevers, back pain greatly improved - 01/29: Discussed with Dr Hagan at [facility], who is covering Dr. Reddy's patients, recommen ded discussing leukopenia/thrombocytopenia with him today, continued ceftriaxone - 01/30: Discussed with Dr. Reddy at [facility], who recommended switching over to once daily Lev aquin IV to finish complete course of therapy with 02/14 being last day of therapy. Patient w ill need to f/u with Dr. Reddy's office in 1 week after discharge from the hospital. Today wa s 1st dose of Levaquin IV. Will need to direct selling counselor patient about risk of tendonitis, tendon rup ture 2/ use of Levaquin. - 01/31: C/w Levaquin. - 02/01: On Levaquin. - 02/02: c/w Levaquin and finish a full course of therapy. Last day of therapy 02/14. Ulcerative colitis without complications - Takes no meds - Needs follow up with GI as outpatient, hasn't had colonoscopy since 2005 - Having some diarrhea, but c diff toxin negative - ESR/CRP negative - Discussed with Dr. Wing, given the occasional blood in the stool, the ~ 40 pound weight loss, performed colonoscopy which shows findings most consistent with UC. F/U further recomm endations. Hyponatremia - 01/29: Improved with fluids, Na 135, no acute issues - 01/30: Resolved, NA 141. Wean off IVFs as patient advances diet. - 01/31: Na 137. - 02/01: Na 136. -02/02: Na still within normal range at 135. Will recheck BMP in am. Leukopenia - 01/29: WBC of 2.3 and falling. Platelet count down to 84. - WBC was 3.1 last week, range before was 4.7 - 5 - 01/30: WBC stable at 2.3. Plt up to 114 - Discussed holding ceftriaxone with Dr. Reddy today, changed to Levaquin as noted above. - 01/31: WBC better at 2.4. Plt at 110. - ESR/CRP normal - 02/01: WBC better at 3.7. Plt 181 - 02/02: WBC is slightly down at 3.5, Plt stable at 180. Plan: c/w Levaquin as noted above. DISPOSITION: May downgrade to medical floor with remote telemetry. If remains stable overn ight possible discharge home tomorrow. Total time spent with the patient (of which more than 50% was in counseling and/or coordina tion the patient's care as outlined above) was 30 minutes. Richardson Cramer DO 02/03/2016 9:29 [facility] Portions of this chart may have been created with [employer] voice recognition software. Occasi onal wrong-word or sound-alike substitutions may have occurred due to the inherent jack itations of voice recognition software. Please read the chart carefully and recognize, using context, where these substitutions have occurred Richardson Brand DO - 02/02/2016 11:46 AM PDT [facility] PROGRESS NOTE Patient: Yamilet Hernandes : 1950: Age: 66 y.o. MedRec: [id number] PCP: Puneet Donovan Admission date: 01/29/2016 Hospital day # : 4 Physician author: Richardson Cramer DO Today: 02/02/2016 Allergies: Allergies Allergen Reactions Penicillins Rash Shellfish Rash Sulfa Antibiotics Rash Aspirin History of colitis Azathioprine Nausea And Vomiting Azithromycin Nausea And Vomiting Celecoxib Codeine Nausea And Vomiting Erythromycin Nausea And Vomiting Fish Oil Gabapentin Hydrocodone Nausea And Vomiting Ibuprofen Meloxicam Mesalamine Orphenadrine Oxycodone Nausea And Vomiting Current Medications: Current Facility-Administered Medications Medication Dose Route Frequency Provider Last Rate Last Dose apixaban (ELIQUIS) tablet 5 mg 5 mg Oral BID Richardson Cramer DO 5 mg at 02/02/16 0 907 famotidine (PEPCID) tablet 20 mg 20 mg Oral BID Rico Vasquez MD 20 mg at 0906 HYDROmorphone (DILAUDID) injection 1-2 mg 1-2 mg Intravenous Q2H PRN Rico Vasquez MD HYDROmorphone (DILAUDID) tablet 2-4 mg 2-4 mg Oral Q3H PRN Rico Vasquez MD 2 mg at 02/01/16 2304 lactated ringers (LR) infusion Intravenous Continuous Tima Romo MD Stopped at 01/31/16 1700 levofloxacin in dextrose (LEVAQUIN) IVPB 750 mg 750 mg Intravenous Daily Richardson spain, DO 100 mL/hr at 02/02/16 0907 750 mg at 02/02/16 0907 metoclopramide (REGLAN) 5 mg/mL injection 10 mg 10 mg Intravenous Q6H PRN Rico shirley MD 10 mg at 01/30/16 1721 metoprolol succinate (TOPROL-XL) ER tablet 100 mg 100 mg Oral Daily Richardson Cramer, DO 100 mg at 02/02/16 0907 nitroglycerin (NITROSTAT) SL tablet 0.4 mg 0.4 mg Sublingual Q5 Min PRN Orville schmitz MD ondansetron (ZOFRAN) injection 4 mg 4 mg Intravenous Q4H PRN Rico Vasquez MD 4 mg at 01/30/16 1633 potassium chloride (K-DUR) ER tablet 20 mEq 20 mEq Oral Daily with breakfast Rico Vasquez MD 20 mEq at 02/02/16 0906 Current Infusions: lactated ringers Stopped (01/31/16 1700) Objective Data Labs Recent Labs Lab 02/01/16 0458 01/31/16 0741 01/30/16 0133 WBC 2.4* 2.3* 2.3* HGB 11.7 11.9 11.6 HCT 35.3 35.4 35.2 PLT 110* 114* 84* NEUPCT 51.1 55.7 -- MONPCT 11.6 10.4 -- No results for input(s): PROTIME, INR in the last 168 hours. No results for input(s): PTT in the last 168 hours. Recent Labs Lab 02/02/16 0528 02/01/16 0458 01/31/16 0741 01/30/16 0133 GLU 99 89 92 87 NA 136 137 141 135* K 4.0 3.8 4.2 3.5 CL 103 104 106 102 CO2 25 26 25 23* ANIONGAP 8 7 10 10 BUN 4* 5* 5* 8 CREA 0.80 0.73 0.70 0.68 GFRNONAA >60 >60 >60 >60 CALCIUM 9.1 8.7 9.1 8.4 ALBUMIN -- -- -- 2.7* TOTALPROTEIN -- -- -- 4.9* BILITOT -- -- -- 0.5 ALKPHOS -- -- -- 93 ALT -- -- -- 31 AST -- -- -- 59* Recent Labs Lab 01/30/16 0130 BNP 157* Recent Labs Lab 02/02/16 0528 02/01/16 1032 MG 2.0 1.6* No results for input(s): PHOS in the last 168 hours. No results for input(s): AMYLASE, LIPASE in the last 168 hours. No results for input(s): AMMONIA in the last 168 hours. No results for input(s): TROPONINI, CK, CKMB in the last 168 hours. Invalid input(s): CKTOTAL No results for input(s): PHART, PO2ART, QBN6BWT, QIE1UAZ, BEART, D0JLYBYT in the last 168 h ours. No results for input(s): SPECSOURCE, PHPOCB, HCO3, TCO2, BEART, BE, IPXR4LDS in the last 16 8 hours. Invalid input(s): HUWYR9HA, [id number] ECHOCARDIOGRAM REPORT STUDY DATE: 01/30/2016 CLINICAL HISTORY/DIAGNOSIS: A FIB A transthoracic echocardiogram with M-mode, pulsed-wave and color Doppler was performed wit h standard views obtained. The technical quality of this examination is fair. The heart rhythm during the echo is atrial fibrillation. The M-mode, two-dimensional, color flow and spectral Doppler data were reviewed and support the following interpretation: Interpretation: Left Atrium: Moderately dilated, volume index 43. Left ventricle: Mild to moderate septal hypertrophy, not well characterized. Probably nor mal wall motion though not all segments were well defined. The estimated ejection fraction is 64%. Grade 2 left ventricular diastolic dysfunction. Aortic root: Aortic root is normal. Right Atrium: Normal volume Right ventricle: Right ventricular size is normal with normal wall thickness and normal ri ght ventricular systolic function. Pericardium: No effusion seen Pulmonary artery: Probably normal in size Aortic valve: Aortic valve is trileaflet and opens normally. mild regurgitation is present Mitral valve: Mitral valve is normal. Pulmonic valve: Grossly normal but not well imaged. Tricuspid valve: Tricuspid valve is normal. Vena cava: Appeared to be dilated. Dynamics were not well demonstrated IMPRESSIONS: Atrial fibrillation present throughout the study Moderate left atrial enlargement. Mild left ventricular septal hypertrophy without obstruction. Mild aortic valvular regurgitation. Left ventricular diastolic dysfunction, probably grade 2. PROCEDURES: Upper endoscopy was remarkable for a hiatal hernia with a Schatzki's ring that was dilated with 48 [place] Vega dilator. There was gastroparesis minor antral gastritis H. pylori b iopsy was obtained via mucosa appeared normal. Colonoscopy was remarkable for mild progres sing to moderate colitis from the rectum to the mid transverse colon. Stool cultures were obtained random biopsies were obtained from the left colon. The cecum and ascending and pr oximal transverse colon had normal mucosa. SPECT the patient's weight loss is due to gastr oparesis possible gastritis. Although the appearance of the colitis appeared to be inflamm atory rather than C. diff ulcers were obtained for C. Diff. Point of care glucose: No results for input(s): POCGLU in the last 168 hours. Serial weights: Filed Weights: 01/29/16 1227 01/30/16 0402 02/02/16 0400 Weight: 82.2 kg (181 lb 3.5 oz) 82.4 kg (181 lb 10.5 oz) 79.788 kg (175 lb 14.4 oz) Most recent weight: Input and output for last 24hrs: Wt Readings from Last 1 Encounters: 02/02/16 79.788 kg (175 lb 14.4 oz) I/O last 24 Hours: In: 1050 [P.O.:950; I.V.:50; IV Piggyback:50] Out: 2400 [Urine:2400] I/O last 3 completed shifts: In: 1050 [P.O.:950; I.V.:50; IV Piggyback:50] Out: 3600 [Urine:3600] Vitals Ranges: Temp: [36.4 C (97.5 F)-37.3 C (99.1 F)] 37 C (98.6 F) Pulse: [84-102] 87 Resp: [11-24] 24 BP: (105-124)/(70-96) 121/96 mmHg Vitals: Temp: 37 C (98.6 F) BP: (!) 121/96 mmHg Pulse: 87 Resp: 24 SpO 2: 96 % SpO2 96 % on room air at flow rate L/min Subjective Patient is seen for follow up today. No acute events overnight. On warp placer since yesterday patient has remained well controlled in the 80s to 90s, occasionally up to low 100s with activity. This morning she is mainly staying 80s and 90s. Patient denying any chest pain or palpitations or dizziness or lightheadedness. Patient denies any abdominal pain. Still having some cough with some phlegm, but it's more upper airway and more clear. Cough is getting better. Tolerated full liquids well. Wants t o get up and more around more. ROS See above Exam General alert, NAD mood and affect normal speech fluent Cardiac irregular irregular, no MRG Extremities no significant edema Lung clear to auscultation no wheezing or rales effort not labored Abdominal + bowel sounds, soft, nontender Assessment and Hospital Course Active Hospital Problems Diagnosis Atrial fibrillation with RVR Cough Dysphagia Discitis Ulcerative colitis without complications Hyponatremia Leukopenia Rectal bleeding Resolved Hospital Problems Diagnosis No resolved problems to display. Plan Atrial fibrillation with RVR - Likely the cause of her shortness of breath, weakness, lightheadedness over the last 4-5 days - No prior diagnosis of any sort of heart disease - Troponins negative overnight - 01/29: HR well controlled on only 5 of diltiazem drip, switchrf to carvedilol in the morni ng, 6.25 mg bid. - 01/30: HR relatively well controlled in low 100s to 110s, up to 120s with mobility. - 01/31: Am patient back in RVR w/ heart rates in 140s to 150s. Transfer to step down unit a nd will give loading dose of IV Diltiazem followed by diltiazem drip if needed. Hold Coreg. - check Mg and replace if low. Checking EKG. - Dr. Khalil of Cardiology is following, discussed with him in person today, appreciate yolis mmendations. He recommends trial of Toprol XL 100 mg daily once patient has better rate cont rol with diltiazem. - Mg was low at 1.6, hence gave 2 gm Mg rider. - 02/01: Heart rates better controlled in the 80s to 90s. C/w Toprol XL. Mg normal today. - increase activity as tolerated. - Started on apixaban, held 01/29 in anticipation of EGD/colonoscopy. Restarted in am 01/31. - TSH normal, but total T4 elevated, raising question of possible hyperthyroidism. Check Fr ee T4: low at 1.5. In acute illness thyroid testing is unreliable. Hence will need to rechec k thyroid function testing once more medically stable in the next 6 weeks. - Chest CT did not show acute disease in the chest - Echo shows grade 2 LV diastolic dysfuction, preserved LV systolic function, moderately di lated left atrium. See full report noted above for more details. Cough - Has had significant cough for some time, c/o worsening dysphagia - 01/29 Started on famotidine for possible GERD, has history of hiatal hernia. - 01/30 EGD shows Schatzki ring and gastritis with hiatal hernia. Most likely cause. C/w Fam otidine. - CT showed no consolidation or PE - 01/31: Cough is better. - 02/01: Cough is better. Dysphagia - multifactorial. - 01/30: EGD showed Schatzki ring which was dilated. There was also evidence of gastroparesi s, minor antral gastritis. There is also hiatal hernia. - 01/30: restarted patient on clear liquid than advanced to full liquid overnight. - 01/31: c/w full liquids diet - 02/01: doing better, advance diet to soft diet. Discitis - Denies fevers, back pain greatly improved - 01/29: Discussed with Dr Hagan at [facility], who is covering Dr. Reddy's patients, recommen ded discussing leukopenia/thrombocytopenia with him today, continued ceftriaxone - 01/30: Discussed with Dr. Reddy at [facility], who recommended switching over to once daily Lev aquin IV to finish complete course of therapy with 02/14 being last day of therapy. Patient w ill need to f/u with Dr. Reddy's office in 1 week after discharge from the hospital. Today wa s 1st dose of Levaquin IV. Will need to direct selling counselor patient about risk of tendonitis, tendon rup ture 2/2 use of Levaquin. - 01/31: C/w Levaquin. Last day of therapy 02/14. - 02/01: c/w Levaquin. Ulcerative colitis without complications - Takes no meds - Needs follow up with GI as outpatient, hasn't had colonoscopy since 2005 - Having some diarrhea, but c diff toxin negative - ESR/CRP negative - Discussed with Dr. Wing, given the occasional blood in the stool, the ~ 40 pound weight loss, performed colonoscopy which shows findings most consistent with UC. F/U further recomm endations. Hyponatremia - 01/29: Improved with fluids, Na 135, no acute issues - 01/30: Resolved, NA 141. Wean off IVFs as patient advances diet. - 01/31: Na 137. - 02/01: Na 136. Monitor. Leukopenia - 01/29: WBC of 2.3 and falling. Platelet count down to 84. - WBC was 3.1 last week, range before was 4.7 - 5 - 01/30: WBC stable at 2.3. Plt up to 114 - Discussed holding ceftriaxone with Dr. Reddy today, changed to Levaquin as noted above. - 01/31: WBC better at 2.4. Plt at 110. - ESR/CRP normal - 02/01: WBC better at 3.7. Plt 181 Plan: c/w Levaquin. DISPOSITION: May downgrade to medical floor with remote telemetry. Total time spent with the patient (of which more than 50% was in counseling and/or coordina tion the patient's care as outlined above) was 30 minutes. Richardson Cramer DO 02/02/2016 11:46 [facility] Portions of this chart may have been created with [employer] voice recognition software. Occasi onal wrong-word or sound-alike substitutions may have occurred due to the inherent jakc itations of voice recognition software. Please read the chart carefully and recognize, using context, where these substitutions have occurred Fly Griffiths R N - 02/01/2016 10:15 AM PDTPt transferred to ICU SD room 461, verbal report to Fatoumata BERKOWITZElect ronically signed by Fly Tejeda RN at 02/01/2016 10:20 AM Richardson Brand DO - 9:40 AM PDT [facility] PROGRESS NOTE Patient: Yamilet Hernandes : 1950: Age: 66 y.o. MedRec: [id number] PCP: Puneet Donovan Admission date: 01/29/2016 Hospital day # : 3 Physician author: Richardson Cramer DO Today: 02/01/2016 Allergies: Allergies Allergen Reactions Penicillins Rash Shellfish Rash Sulfa Antibiotics Rash Aspirin History of colitis Azathioprine Nausea And Vomiting Azithromycin Nausea And Vomiting Celecoxib Codeine Nausea And Vomiting Erythromycin Nausea And Vomiting Fish Oil Gabapentin Hydrocodone Nausea And Vomiting Ibuprofen Meloxicam Mesalamine Orphenadrine Oxycodone Nausea And Vomiting Current Medications: Current Facility-Administered Medications Medication Dose Route Frequency Provider Last Rate Last Dose apixaban (ELIQUIS) tablet 5 mg 5 mg Oral BID Richardson Cramer DO 5 mg at 02/01/16 0 837 carvedilol (COREG) tablet 6.25 mg 6.25 mg Oral BID Orville Khalil MD 6.25 mg at 02/01/16 0838 famotidine (PEPCID) tablet 20 mg 20 mg Oral BID Rico Vasquez MD 20 mg at 0837 HYDROmorphone (DILAUDID) injection 1-2 mg 1-2 mg Intravenous Q2H PRN Rico Vasquez MD HYDROmorphone (DILAUDID) tablet 2-4 mg 2-4 mg Oral Q3H PRN Rico Vasquez MD 2 mg at 01/31/16 2101 lactated ringers (LR) infusion Intravenous Continuous Tima Romo MD Stopped at 01/31/16 1700 levofloxacin in dextrose (LEVAQUIN) IVPB 750 mg 750 mg Intravenous Daily Richardson spain DO 100 mL/hr at 02/01/16 0837 750 mg at 02/01/16 0837 metoclopramide (REGLAN) 5 mg/mL injection 10 mg 10 mg Intravenous Q6H PRN Rico shirley MD 10 mg at 01/30/16 1721 nitroglycerin (NITROSTAT) SL tablet 0.4 mg 0.4 mg Sublingual Q5 Min PRN Orville schmitz MD ondansetron (ZOFRAN) injection 4 mg 4 mg Intravenous Q4H PRN Rico Vasquez MD 4 mg at 01/30/16 1633 potassium chloride (K-DUR) ER tablet 20 mEq 20 mEq Oral Daily with breakfast Rico Vasquez MD 20 mEq at 02/01/16 0837 Current Infusions: lactated ringers Stopped (01/31/16 1700) Objective Data Labs Recent Labs Lab 02/01/16 0458 01/31/16 0741 01/30/16 0133 WBC 2.4* 2.3* 2.3* HGB 11.7 11.9 11.6 HCT 35.3 35.4 35.2 PLT 110* 114* 84* NEUPCT 51.1 55.7 -- MONPCT 11.6 10.4 -- No results for input(s): PROTIME, INR in the last 168 hours. No results for input(s): PTT in the last 168 hours. Recent Labs Lab 02/01/16 0458 01/31/16 0741 01/30/16 0133 GLU 89 92 87 NA 137 141 135* K 3.8 4.2 3.5 CL 104 106 102 CO2 26 25 23* ANIONGAP 7 10 10 BUN 5* 5* 8 CREA 0.73 0.70 0.68 GFRNONAA >60 >60 >60 CALCIUM 8.7 9.1 8.4 ALBUMIN -- -- 2.7* TOTALPROTEIN -- -- 4.9* BILITOT -- -- 0.5 ALKPHOS -- -- 93 ALT -- -- 31 AST -- -- 59* Recent Labs Lab 01/30/16 0130 BNP 157* No results for input(s): MG in the last 168 hours. No results for input(s): PHOS in the last 168 hours. No results for input(s): AMYLASE, LIPASE in the last 168 hours. No results for input(s): AMMONIA in the last 168 hours. No results for input(s): TROPONINI, CK, CKMB in the last 168 hours. Invalid input(s): CKTOTAL No results for input(s): PHART, PO2ART, [id number], [id number], BEART, [id number] in the last 168 h ours. No results for input(s): SPECSOURCE, PHPOCB, HCO3, TCO2, BEART, BE, [id number] in the last 16 8 hours. Invalid input(s): [id number], [id number] ECHOCARDIOGRAM REPORT STUDY DATE: 01/30/2016 CLINICAL HISTORY/DIAGNOSIS: A FIB A transthoracic echocardiogram with M-mode, pulsed-wave and color Doppler was performed wit h standard views obtained. The technical quality of this examination is fair. The heart rhythm during the echo is atrial fibrillation. The M-mode, two-dimensional, color flow and spectral Doppler data were reviewed and support the following interpretation: Interpretation: Left Atrium: Moderately dilated, volume index 43. Left ventricle: Mild to moderate septal hypertrophy, not well characterized. Probably nor mal wall motion though not all segments were well defined. The estimated ejection fraction is 64%. Grade 2 left ventricular diastolic dysfunction. Aortic root: Aortic root is normal. Right Atrium: Normal volume Right ventricle: Right ventricular size is normal with normal wall thickness and normal ri ght ventricular systolic function. Pericardium: No effusion seen Pulmonary artery: Probably normal in size Aortic valve: Aortic valve is trileaflet and opens normally. mild regurgitation is present Mitral valve: Mitral valve is normal. Pulmonic valve: Grossly normal but not well imaged. Tricuspid valve: Tricuspid valve is normal. Vena cava: Appeared to be dilated. Dynamics were not well demonstrated IMPRESSIONS: Atrial fibrillation present throughout the study Moderate left atrial enlargement. Mild left ventricular septal hypertrophy without obstruction. Mild aortic valvular regurgitation. Left ventricular diastolic dysfunction, probably grade 2. PROCEDURES: Upper endoscopy was remarkable for a hiatal hernia with a Schatzki's ring that was dilated with 48 Dominican Vega dilator. There was gastroparesis minor antral gastritis H. pylori b iopsy was obtained via mucosa appeared normal. Colonoscopy was remarkable for mild progres sing to moderate colitis from the rectum to the mid transverse colon. Stool cultures were obtained random biopsies were obtained from the left colon. The cecum and ascending and pr oximal transverse colon had normal mucosa. SPECT the patient's weight loss is due to gastr oparesis possible gastritis. Although the appearance of the colitis appeared to be inflamm atory rather than C. diff ulcers were obtained for C. Diff. Point of care glucose: No results for input(s): POCGLU in the last 168 hours. Serial weights: Filed Weights: 01/29/16 1227 01/30/16 0402 Weight: 82.2 kg (181 lb 3.5 oz) 82.4 kg (181 lb 10.5 oz) Most recent weight: Input and output for last 24hrs: Wt Readings from Last 1 Encounters: 01/30/16 82.4 kg (181 lb 10.5 oz) I/O last 24 Hours: In: 1125 [P.O.:650; I.V.:325; IV Piggyback:150] Out: 2400 [Urine:2300; Stool:100] I/O last 3 completed shifts: In: 4910 [P.O.:4435; I.V.:325; IV Piggyback:150] Out: 4100 [Urine:3400; Stool:700] Vitals Ranges: Temp: [36.3 C (97.3 F)-36.9 C (98.4 F)] 36.8 C (98.2 F) Pulse: [80-120] 100 Resp: [12-16] 16 BP: (88-130)/(50-86) 128/86 mmHg Vitals: Temp: 36.8 C (98.2 F) BP: 128/86 mmHg Pulse: 100 Resp: 16 SpO2 : 98 % SpO2 98 % on room air at flow rate L/min Subjective Patient is seen for follow up today. No acute events overnight. On warp placer since this morning around 7 AM patient's been in rapid atrial fibrillati on with heart rates up to 140s to 150s, but asymptomatic denying any chest pain or palpitati ons or dizziness or lightheadedness. Patient denies any abdominal pain. Still having some cough with some phlegm, but it's more upper airway and more clear. Tolerated clear liquids well overnight. Was unable to tolera te much cereal this morning. ROS See above Exam General alert, NAD mood and affect normal speech fluent Cardiac irregular irregular, tachy no MRG Extremities no significant edema Lung clear to auscultation no wheezing or rales effort not labored Abdominal + bowel sounds, soft, nontender Assessment and Hospital Course Active Hospital Problems Diagnosis Atrial fibrillation with RVR Cough Dysphagia Discitis Ulcerative colitis without complications Hyponatremia Leukopenia Rectal bleeding Resolved Hospital Problems Diagnosis No resolved problems to display. Plan Atrial fibrillation with RVR - Likely the cause of her shortness of breath, weakness, lightheadedness over the last 4-5 days - No prior diagnosis of any sort of heart disease - Troponins negative overnight - 01/29: HR well controlled on only 5 of diltiazem drip, switchrf to carvedilol in the morni ng, 6.25 mg bid. - 01/30: HR relatively well controlled in low 100s to 110s, up to 120s with mobility. - 01/31: Am patient back in RVR w/ heart rates in 140s to 150s. Transfer to step down unit a nd will give loading dose of IV Diltiazem followed by diltiazem drip if needed. Hold Coreg. - check Mg and replace if low. Checking EKG. - Dr. Khalil of Cardiology is following, discussed with him in person today, appreciate yolis mmendations. He recommends trial of Toprol XL 100 mg daily once patient has better rate cont rol with diltiazem. - Started on apixaban, held 01/29 in anticipation of EGD/colonoscopy. Restarted in am 01/31. - TSH normal, but total T4 elevated, raising question of possible hyperthyroidism. Check Fr ee T4: low at 1.5. In acute illness thyroid testing is unreliable. Hence will need to rechec k thyroid function testing once more medically stable in the next 6 weeks. - Chest CT did not show acute disease in the chest - Echo shows grade 2 LV diastolic dysfuction, preserved LV systolic function, moderately di lated left atrium. See full report noted above for more details. Cough - Has had significant cough for some time, c/o worsening dysphagia - 01/29 Started on famotidine for possible GERD, has history of hiatal hernia. - 01/30 EGD shows Schatzki ring and gastritis with hiatal hernia. Most likely cause. C/w Fam otidine. - CT showed no consolidation or PE - 01/31: Cough is better. Dysphagia - multifactorial. - 01/30: EGD showed Schatzki ring which was dilated. There was also evidence of gastroparesi s, minor antral gastritis. There is also hiatal hernia. - 01/30: restarted patient on clear liquid than advanced to full liquid overnight. - 01/31: c/w full liquids diet Discitis - Denies fevers, back pain greatly improved - 01/29: Discussed with Dr Hagan at [facility], who is covering Dr. Reddy's patients, recommen ded discussing leukopenia/thrombocytopenia with him today, continued ceftriaxone - 01/30: Discussed with Dr. Reddy at [facility], who recommended switching over to once daily Lev aquin IV to finish complete course of therapy with 02/14 being last day of therapy. Patient w ill need to f/u with Dr. Reddy's office in 1 week after discharge from the hospital. Today wa s 1st dose of Levaquin IV. Will need to direct selling counselor patient about risk of tendonitis, tendon rup ture / use of Levaquin. - 01/31: C/w Levaquin. Ulcerative colitis without complications - Takes no meds - Needs follow up with GI as outpatient, hasn't had colonoscopy since 2005 - Having some diarrhea, but c diff toxin negative - ESR/CRP negative - Discussed with Dr. Wing, given the occasional blood in the stool, the ~ 40 pound weight loss, performed colonoscopy which shows findings most consistent with UC. F/U further recomm endations. Hyponatremia - 01/29: Improved with fluids, Na 135, no acute issues - 01/30: Resolved, NA 141. Wean off IVFs as patient advances diet. - 01/31: Na 137. Monitor. Leukopenia - 01/29: WBC of 2.3 and falling. Platelet count down to 84. - WBC was 3.1 last week, range before was 4.7 - 5 - 01/30: WBC stable at 2.3. Plt up to 114 - 01/31: WBC better at 2.4. Plt at 110. - ESR/CRP normal - 01/30: Discussed holding ceftriaxone with Dr. Reddy today, changed to Levaquin as noted abo ve. Total critical care time spent with the patient (of which more than 50% was in counseling a nd/or coordination the patient's care as outlined above) was 30 minutes. Richardson Cramer, 02/01/2016 9:40 [facility] Portions of this chart may have been created with Dragon voice recognition software. Occasi onal wrong-word or sound-alike substitutions may have occurred due to the inherent jack itations of voice recognition software. Please read the chart carefully and recognize, using context, where these substitutions have occurred Once patient transferred to Step down, her heart rates are now in the 90s, still in A.fib. EKG reviewed by me shows A. Fib, rate 98, LAD, otherwise unremarkable EKG. Plan: Will d/c Diltiazem IV order. D/c Coreg & start on Toprol XL 100 mg 1st dose now per James Khalil's recommendations. Still waiting for Mg level and will replace if less than 2.Elect ronically signed by Richardson Cramer DO at 02/03/2016 9:32 AM Richardson Brand DO - 0 01/31/2016 2:42 PM PDT [facility] PROGRESS NOTE Patient: Yamilet Hernandes : 1950: Age: 66 y.o. MedRec: [id number] PCP: Puneet Donovan Admission date: 01/29/2016 Hospital day # : 2 Physician author: Richardson Cramer DO Today: 01/31/2016 Allergies: Allergies Allergen Reactions Penicillins Rash Shellfish Rash Sulfa Antibiotics Rash Aspirin History of colitis Azathioprine Nausea And Vomiting Azithromycin Nausea And Vomiting Celecoxib Codeine Nausea And Vomiting Erythromycin Nausea And Vomiting Fish Oil Gabapentin Hydrocodone Nausea And Vomiting Ibuprofen Meloxicam Mesalamine Orphenadrine Oxycodone Nausea And Vomiting Current Medications: Current Facility-Administered Medications Medication Dose Route Frequency Provider Last Rate Last Dose carvedilol (COREG) tablet 6.25 mg 6.25 mg Oral BID Orville Khalil MD 6.25 mg at 01/31/16 0824 cefTRIAXone (ROCEPHIN) 2 g in sodium chloride 0.9% 50 mL IVPB 2 g Intravenous Every af ternoon Rico Vasquez MD 100 mL/hr at 01/30/16 1513 2 g at 01/30/16 1513 famotidine (PEPCID) tablet 20 mg 20 mg Oral BID Rico Vasquez MD 20 mg at 0824 HYDROmorphone (DILAUDID) injection 1-2 mg 1-2 mg Intravenous Q2H PRN Rico Vasquez MD HYDROmorphone (DILAUDID) tablet 2-4 mg 2-4 mg Oral Q3H PRN Rico Vasquez MD 2 mg at 01/31/16 0824 lactated ringers (LR) infusion Intravenous Continuous Tima Romo MD 10 mL/hr at 0 01/31/16 1233 metoclopramide (REGLAN) 5 mg/mL injection 10 mg 10 mg Intravenous Q6H PRN Rico shirley MD 10 mg at 01/30/16 1721 nitroglycerin (NITROSTAT) SL tablet 0.4 mg 0.4 mg Sublingual Q5 Min PRN Orville schmitz MD ondansetron (ZOFRAN) injection 4 mg 4 mg Intravenous Q4H PRN Rico Vasquez MD 4 mg at 01/30/16 1633 potassium chloride (K-DUR) ER tablet 20 mEq 20 mEq Oral Daily with breakfast Rico Vasquez MD 20 mEq at 01/31/16 0824 Current Infusions: lactated ringers 10 mL/hr at 01/31/16 1233 Objective Data Labs Recent Labs Lab 01/31/16 0741 01/30/16 0133 WBC 2.3* 2.3* HGB 11.9 11.6 HCT 35.4 35.2 PLT 114* 84* NEUPCT 55.7 -- MONPCT 10.4 -- No results for input(s): PROTIME, INR in the last 168 hours. No results for input(s): PTT in the last 168 hours. Recent Labs Lab 01/31/16 0741 01/30/16 0133 GLU 92 87 NA 141 135* K 4.2 3.5 CL 106 102 CO2 25 23* ANIONGAP 10 10 BUN 5* 8 CREA 0.70 0.68 GFRNONAA >60 >60 CALCIUM 9.1 8.4 ALBUMIN -- 2.7* TOTALPROTEIN -- 4.9* BILITOT -- 0.5 ALKPHOS -- 93 ALT -- 31 AST -- 59* Recent Labs Lab 01/30/16 0130 BNP 157* No results for input(s): MG in the last 168 hours. No results for input(s): PHOS in the last 168 hours. No results for input(s): AMYLASE, LIPASE in the last 168 hours. No results for input(s): AMMONIA in the last 168 hours. No results for input(s): TROPONINI, CK, CKMB in the last 168 hours. Invalid input(s): CKTOTAL No results for input(s): PHART, PO2ART, LDS6SDH, EKB3PHS, BEART, T4GTRLPC in the last 168 h ours. No results for input(s): SPECSOURCE, PHPOCB, HCO3, TCO2, BEART, BE, [id number] in the last 16 8 hours. Invalid input(s): NZNIQ2DM, TMJH7MI ECHOCARDIOGRAM REPORT STUDY DATE: 01/30/2016 CLINICAL HISTORY/DIAGNOSIS: A FIB A transthoracic echocardiogram with M-mode, pulsed-wave and color Doppler was performed wit h standard views obtained. The technical quality of this examination is fair. The heart rhythm during the echo is atrial fibrillation. The M-mode, two-dimensional, color flow and spectral Doppler data were reviewed and support the following interpretation: Interpretation: Left Atrium: Moderately dilated, volume index 43. Left ventricle: Mild to moderate septal hypertrophy, not well characterized. Probably nor mal wall motion though not all segments were well defined. The estimated ejection fraction is 64%. Grade 2 left ventricular diastolic dysfunction. Aortic root: Aortic root is normal. Right Atrium: Normal volume Right ventricle: Right ventricular size is normal with normal wall thickness and normal ri ght ventricular systolic function. Pericardium: No effusion seen Pulmonary artery: Probably normal in size Aortic valve: Aortic valve is trileaflet and opens normally. mild regurgitation is present Mitral valve: Mitral valve is normal. Pulmonic valve: Grossly normal but not well imaged. Tricuspid valve: Tricuspid valve is normal. Vena cava: Appeared to be dilated. Dynamics were not well demonstrated IMPRESSIONS: Atrial fibrillation present throughout the study Moderate left atrial enlargement. Mild left ventricular septal hypertrophy without obstruction. Mild aortic valvular regurgitation. Left ventricular diastolic dysfunction, probably grade 2. PROCEDURES: Upper endoscopy was remarkable for a hiatal hernia with a Schatzki's ring that was dilated with 48 [place] Vega dilator. There was gastroparesis minor antral gastritis H. pylori b iopsy was obtained via mucosa appeared normal. Colonoscopy was remarkable for mild progres sing to moderate colitis from the rectum to the mid transverse colon. Stool cultures were obtained random biopsies were obtained from the left colon. The cecum and ascending and pr oximal transverse colon had normal mucosa. SPECT the patient's weight loss is due to gastr oparesis possible gastritis. Although the appearance of the colitis appeared to be inflamm atory rather than C. diff ulcers were obtained for C. Diff. Point of care glucose: No results for input(s): POCGLU in the last 168 hours. Serial weights: Filed Weights: 01/29/16 1227 01/30/16 0402 Weight: 82.2 kg (181 lb 3.5 oz) 82.4 kg (181 lb 10.5 oz) Most recent weight: Input and output for last 24hrs: Wt Readings from Last 1 Encounters: 01/30/16 82.4 kg (181 lb 10.5 oz) I/O last 24 Hours: In: 5585 [P.O.:5535; IV Piggyback:50] Out: 2800 [Urine:1900; Stool:900] I/O last 3 completed shifts: In: 6028.6 [P.O.:5935; I.V.:43.6; IV Piggyback:50] Out: 4050 [Urine:3150; Stool:900] Vitals Ranges: Temp: [36.1 C (97 F)-36.8 C (98.2 F)] 36.5 C (97.7 F) Pulse: [83-120] 103 Resp: [12-18] 12 BP: (88-173)/(50-82) 106/51 mmHg Vitals: Temp: 36.5 C (97.7 F) BP: 106/51 mmHg Pulse: 103 Resp: 12 SpO2 : 99 % SpO2 99 % on room air at flow rate L/min Subjective Patient is seen for follow up today after she returns from her EGD, colonoscopy. No acute e vents overnight. On warp placer patient remains in low 100s to 110s, up to 120s with activity, remains a symptomatic. Patient denies any abdominal pain. ROS See above Exam General alert, NAD mood and affect normal speech fluent Cardiac RRR no MRG Extremities no significant edema Lung clear to auscultation effort not labored Abdominal + bowel sounds, soft, nontender Assessment and Hospital Course Active Hospital Problems Diagnosis Atrial fibrillation with RVR Cough Dysphagia Discitis Ulcerative colitis without complications Hyponatremia Leukopenia Rectal bleeding Resolved Hospital Problems Diagnosis No resolved problems to display. Plan Atrial fibrillation with RVR - Likely the cause of her shortness of breath, weakness, lightheadedness over the last 4-5 days - No prior diagnosis of any sort of heart disease - Troponins negative overnight - 01/29: HR well controlled on only 5 of diltiazem drip, switchrf to carvedilol in the morni ng, 6.25 mg bid. - 01/30: HR relatively well controlled in low 100s to 110s, up to 120s with mobility. Will m onitor today and titrate up if needed for rate control in am. - Dr. Khalil of Cardiology is following, discussed with him in person today, appreciate yolis mmendations. - Started on apixaban, held 01/29 in anticipation of EGD/colonoscopy. Restart in am. - TSH normal, but total T4 elevated, raising question of possible hyperthyroidism. Check Fr ee T4. In acute illness thyroid testing is unreliable. Hence will need to recheck thyroid fu nction testing once more medically stable in the next 6 weeks. - Chest CT did not show acute disease in the chest - Echo shows grade 2 LV diastolic dysfuction, preserved LV systolic function, moderately di lated left atrium. See full report noted above for more details. Cough - Has had significant cough for some time, c/o worsening dysphagia - 01/29 Started on famotidine for possible GERD, has history of hiatal hernia. - 01/30 EGD shows Schatzki ring and gastritis with hiatal hernia. Most likely cause. C/w Fam otidine. - CT showed no consolidation or PE Dysphagia - multifactorial. - 01/30: EGD showed Schatzki ring which was dilated. There was also evidence of gastroparesi s, minor antral gastritis. There is also hiatal hernia. - restart patient on clear liquid than advance as tolerated to full liquid overnight. Discitis - Denies fevers, back pain greatly improved - 01/29: Discussed with Dr Hagan at [facility], who is covering Dr. Reddy's patients, recommen ded discussing leukopenia/thrombocytopenia with him today, continued ceftriaxone - 01/30: Discussed with Dr. Reddy at [facility], who recommended switching over to once daily Lev aquin IV to finish complete course of therapy with 02/14 being last day of therapy. Patient w ill need to f/u with Dr. Reddy's office in 1 week after discharge from the hospital. Today wa s 1st dose of Levaquin IV. Will need to direct selling counselor patient about risk of tendonitis, tendon rup ture 2/2 use of Levaquin. Ulcerative colitis without complications - Takes no meds - Needs follow up with GI as outpatient, hasn't had colonoscopy since 2005 - Having some diarrhea, but c diff toxin negative - ESR/CRP negative - Discussed with Dr. Wing, given the occasional blood in the stool, the ~ 40 pound weight loss, performed colonoscopy which shows findings most consistent with UC. F/U further recomm endations. Hyponatremia - 01/29: Improved with fluids, Na 135, no acute issues - 01/30: Resolved, NA 141. Wean off IVFs as patient advances diet. Leukopenia - 01/29: WBC of 2.3 and falling. Platelet count down to 84. - WBC was 3.1 last week, range before was 4.7 - 5 - 01/30: WBC stable at 2.3. Plt up to 114 - ESR/CRP normal - Discussed holding ceftriaxone with Dr. Reddy today, changed to Levaquin as noted above. Time spent with the patient and (of which more than 50% was in counseling and/or co ordination the patient's care as outlined above) was 30 minutes. Richardson Cramer DO 01/31/2016 14:42 [facility] Portions of this chart may have been created with [employer] voice recognition software. Occasi onal wrong-word or sound-alike substitutions may have occurred due to the inherent jack itations of voice recognition software. Please read the chart carefully and recognize, using context, where these substitutions have occurred Brett Nation MD - 01/31/2016 1:06 PM PDTThe patient complains of dysphagia in upper esophageal sphincter ar ea. She saw no blood with bowel prep. Patient has been on ceftriaxone for discitis and as such antibiotic prophylaxis I did not feel was indicated for colonoscopy. Consent forms are signed patient's questions are answeredElectronically signed by Brett Wing MD at 2015 1:07 PM Orville Burks MD - 01/31/2016 9:25 AM PDTCardiology: Remains in atrial fibrillation with rates 85 - 110 on carvedilol 6.25 mg bid Thyroid panel suggests mild hyperthyroidism. Discussed with Dr. Cramer. With rate controlled, atrial fibrillation management is not urgent. Should anticoagulate a t some point but this can wait until safe. Will schedule for an out patient cardioversion a t an undefined future date, after 3 weeks of uninterrupted anticoagulation. Preferably the cardioversion will be preceded by a more definitive thyroid evaluation as cardioverting hype rthyroid patients without control of hyperthyroid state is less successful.Electronically si gned by Orville Khalil MD at 01/31/2016 9:31 AM PDTLeach, Rico Rojas MD - 01/30/2016 8:58 AM PDT [facility] Hospitalist Progress Note Yamilet Hernandes is a 66 y.o. female SUBJECTIVE: C/o chronic cough, worse this morning. C/o some difficulty swallowing both foods and liq uids at times. Denies chest pain. No acute shortness of breath. Had BM this morning, danyell es any blood in stool. VITALS: Temp: 36.2 C (97.2 F), Pulse: 80, Resp: 15, BP: 116/78 mmHg, SpO2 98 % on room air at f low rate L/min Temp Min: 36 C (96.8 F) Max: 37 C (98.6 F) Weight: 82.2 kg (181 lb 3.5 oz) Intake/Output Summary (Last 24 hours) at 01/30/16 09 Last data filed at 01/30/16 0827 Gross per 24 hour Intake 1168.6 ml Output 1800 ml Net -631.4 ml PHYSICAL EXAM: General: Alert, pleasant, sitting up Cardiovascular: Irr irregular, no murmurs Respiratory: CTA bilaterally, frequent dry cough Abdomen: Soft, NT, bowel sounds present Extremities: WWP, minimal edema Neurological: Alert, appropriate DIAGNOSTIC STUDIES: Available data and images were reviewed personally. Significant results and findings are a ddressed here or in the Assessment and Plan. Recent Results (from the past 24 hour(s)) TSH Result Value Ref Range TSH 0.83 0.34-5.60 uIU/mL D-Dimer Result Value Ref Range D-DIMER, QUANTITATIVE 3.27 (H) <=0.50 ug/ml Troponin I Result Value Ref Range Troponin I 0.02 <0.06 ng/mL B Type Natriuretic Peptide Result Value Ref Range BNP 157 (H) <100 pg/mL Troponin I Result Value Ref Range Troponin I 0.02 <0.06 ng/mL CBC no Differential Result Value Ref Range WBC 2.3 (LL) 4.0-11.0 K/uL RBC 4.08 3.70-5.20 M/uL Hgb 11.6 11.5-16.0 g/dL Hct 35.2 34.0-47.0 % MCV 86.2 83.0-101.0 fL MCH 28.4 28.0-35.0 pg MCHC 33.0 32.0-36.0 g/dL RDW-CV 15.6 (H) <15.0 % Platelet Count 84 (L) 140-440 K/uL MPV 8.0 fL Comprehensive Metabolic Panel Result Value Ref Range NA 135 (L) 136-149 mmol/L K 3.5 3.5-5.1 mmol/L CL 102 98-109 mmol/L CO2 23 (L) 24-31 mmol/L ANION GAP 10 3-16 mmol/L GLUCOSE 87 70-109 mg/dL BUN 8 7-18 mg/dL Creatinine, Serum/Plasma 0.68 0.60-1.30 mg/dL eGFR if not >60 >=60 mL/min/1.73m2 CALCIUM 8.4 8.3-10.5 mg/dL ALBUMIN 2.7 (L) 3.2-5.0 g/dL BILIRUBIN TOTAL 0.5 0.1-1.5 mg/dL Total protein 4.9 (L) 6.0-7.8 g/dL AST 59 (H) 10-42 U/L ALT 31 6-45 U/L ALK PHOS 93 40-110 U/L GLOBULIN 2.2 2.1-3.8 g/dL Albumin/Globulin ratio 1.2 0.8-2.0 BUN/CREA 11.8 Sedimentation Rate Result Value Ref Range ESR 13 <30 mm/hr C-Reactive Protein Result Value Ref Range CRP 2.47 <8.00 mg/L Clostridium difficile A and B EIA Result Value Ref Range Clostridium Diff Negative Negative Clostridium difficile, glutamate dehydrogenase Negative Ct Angiogram Pulmonary 01/29/2016 DISCLAIMER: This is a preliminary report provided by [facility] JORDYN Costa. A final report is available at [facility]. CT ANGIOGR AM CHEST (PULMONARY) CLINICAL INFORMATION: Evaluate for pulmomary embolus. Increasing shor tness of breath, weakness, lightheadedness with standing; No falls. COMPARISON: No compari sons PROCEDURE: Thin-section images of the entire chest after the administration of 65 ml OMNI 350intravenous contrast. 3D MIP thin slab images and 2D multiplanar reconstructions per formed. At least one of the following CT dose optimization techniques were used: Automated exposure control; Adjustment of mA and/or kV according to patient size; Use of iterative re construction technique. FINDINGS: PULMONARY ARTERIES: No pulmonary embolism. RIGHT VENTR ICLE TO LEFT VENTRICLE RATIO:Not applicable. (Maximum short axis diameter on axial image. Ap plicable only when pulmonary embolism present. Abnormal greater than or equal to 0.9.) PAVEL ST Lungs, Pleura and Airways: No significant pulmonary abnormality. No airway narrowing or o bstruction. No pleural effusion or pneumothorax. Mediastinum: No significant pericardial, gr eat vessel or esophageal abnormality. No mediastinal mass. Lymph Nodes: No adenopathy. Upper Abdomen: Negative. BODY WALL Soft Tissues: No hernia, mass or hemorrhage. Bones: No acute fracture or vertebral end plate destruction. No lytic or blastic lesion. IMPRESSION: Nega tive CT of the chest with contrast. Dictated by: Rich Chapin Signed by: Rich Chapin Report sent: 01/29/2016 4:37:00 PM ASSESSMENT and PLAN: Active Hospital Problems Diagnosis Cough Dysphagia Discitis *Atrial fibrillation with RVR Ulcerative colitis without complications Hyponatremia Leukopenia Resolved Hospital Problems Diagnosis Date Noted Date Resolved No resolved problems to display. * Atrial fibrillation with RVR Assessment & Plan - Likely the cause of her shortness of breath, weakness, lightheadedness over the last 4-5 days - No prior diagnosis of any sort of heart disease - Troponins negative overnight - HR well controlled on only 5 of diltiazem drip, switch to carvedilol this morning and tit rate up if needed for rate control - Started on apixaban but will hold for today in anticipation of EGD/colonoscopy tomorrow - TSH normal, echo pending - Chest CT did not show acute disease in the chest Discitis Assessment & Plan - Denies fevers, back pain greatly improved - Discussed with Dr Hagan at [facility], who is covering Dr. Reddy's patients, recommended di scussing leukopenia/thrombocytopenia with him tomorrow, continue ceftriaxone for now Ulcerative colitis without complications Assessment & Plan - Takes no meds - Needs follow up with GI for colonoscopy, hasn't had colonoscopy since 2006 - Having some diarrhea, but c diff toxin negative - ESR/CRP negative - Discussed with Dr. Wing, given the occasional blood in the stool, the ~ 40 pound weight loss, needs colonoscopy and will prep today for scope tomorrow Hyponatremia Assessment & Plan - Improved with fluids, Na 135 this morning, no acute issues Leukopenia Assessment & Plan - WBC of 2.3 and falling - 3 last week, but was normal prior to that - ESR/CRP normal - Discuss holding ceftriaxone with Dr. Reddy tomorrow Cough Assessment & Plan - Has had significant cough for some time, c/o worsening dysphagia - Start on famotidine for possible GERD today, has history of hiatal hernia - EGD tomorrow to investigate dysphagia/weight loss - CT showed no consolidation or PE Disposition : Likely to floor today Prophylaxis : SCD's, restart apixaban after GI procedures tomorrow Current Facility-Administered Medications: carvedilol 6.25 mg Oral BID WC cefTRIAXone (ROCEPHIN) IV 2 g Intravenous Every afternoon famotidine 20 mg Oral BID HYDROmorphone 1-2 mg Intravenous Q2H PRN HYDROmorphone 2-4 mg Oral Q3H PRN nitroglycerin 0.4 mg Sublingual Q5 Min PRN polyethylene glycol 4,000 mL Oral Once potassium chloride 20 mEq Oral Daily with breakfast Total time of approximately 35 minutes was spent with the patient and/or patient's family, and/or on the patient's floor/unit, of which more than 50% was spent counseling and/or coord ination the patient's care as outlined above. Rico Vasquez 01/30/2016 9:12 [facility] Portions of this chart may have been created with [employer] voice recognition software. Occasi onal wrong-word or sound-alike substitutions may have occurred due to the inherent jack itations of voice recognition software. Please read the chart carefully and recognize, using context, where these substitutions have occurred erálvaro, Orville Rogers MD - 01/30/2016 8:44 AM PDT PATIENT NAME: Yamilet Hernandes : 1950: AGE: 66 y.o. ADMISSION DATE: 01/29/2016 HOSPITAL DAY NUMBER: [id number] PRIMARY CARE: Puneet Donovan CONSULTING PROVIDER: Orville Khalil MD CARDIOLOGY PROGRESS NOTE DATE OF SERVICE: 01/30/16 SUBJECTIVE: Has a better appetite. Feels stronger. No dyspnea or chest discomfort OBJECTIVE: PHYSICAL EXAM Latest VS: BP 116/78 mmHg | Pulse 80 | Temp(Src) 36.2 C (97.2 F) (Oral) | Resp 15 | Ht 1.651 m (5' 5") | Wt 82.4 kg (181 lb 10.5 oz) | BMI 30.23 kg/m2 | SpO2 98% General No acute distress. Chest Effort and pattern are normal. Chest was is not tender. Cardiovascular CVP by exam: 5 Murmurs rubs or gallops: None Pulses unchanged. Edema: none Mental Status/Neurological Orientation, affect and mood: Appropriate. LABS Low-normal TSH. Troponin I = .02, wnl ECG: A. Fib continues, rate around 85 - 110 ASSESSMENT: Cardiovascular: Atrial fibrillation, new onset probably >5 days Other: Neutropenia, thrombocytopenia UC PLAN or RECOMMENDATIONS: 1. Thyroid panel 2. Stop IV dilt. Increase beta vivian if necessary Portions of this report may have been transcribed using voice recognition software. Every effort was made to ensure accuracy, however, inadvertent svp programmatic tv errors may be present . Electronically signed by: Orville Khalil MD 01/30/2016 8:45 documented in this encounter Plan of Treatment +--------+ + + + + | Date | Type | Specialty | Care Team | Description | +--------+ + + + + | 06/24/ | Appointment | Radiation Oncology | Jojo Henry | | | 2020 | | | MD Jessica [address] | | | | | | [place] | | | | | | [id number] | | | | | | | | +--------+ + + + + + + +--------+ + + | Name | Type | Priori | Associated Diagnoses | Order Schedule | | | | ty | | | + + +--------+ + + | Referral to Home | Outpatient | Routin | Atrial | Ordered: 02/04/2016 | | Health | Referral | e | fibrillation with | | | | | | RVR ([facility]) Discitis, | | | | | | unspecified spinal | | | | | | region Hyponatremia | | | | | | Dysphagia, | | | | | | unspecified type | | | | | | Cough Leukopenia, | | | | | | unspecified type | | | | | | Ulcerative colitis | | | | | | without | | | | | | complications, | | | | | | unspecified location | | | | | | ([facility]) | | + + +--------+ + + | AMB REFERRAL TO [facility] | Outpatient | Routin | Discitis, | Ordered: 02/04/2016 | | OP INFUSION | Referral | e | unspecified spinal | | | | | | region | | + + +--------+ + + documented as of this encounter Procedures + +--------+ + + + | Procedure Name | Priori | Date/Time | Associated Diagnosis | Comments | | | ty | | | | + +--------+ + + + | ECG 12 LEAD | STAT | 02/13/2016 | | Results for this | | | | 11:56 AM | | procedure are in the | | | | PDT | | results section. | + +--------+ + + + | CBC WITH | STAT | 02/04/2016 | | Results for this | | DIFFERENTIAL | | 8:51 AM | | procedure are in the | | | | PDT | | results section. | + +--------+ + + + | MAGNESIUM | STAT | 02/04/2016 | | Results for this | | | | 8:51 AM | | procedure are in the | | | | PDT | | results section. | + +--------+ + + + | BASIC METABOLIC | STAT | 02/04/2016 | | Results for this | | PANEL | | 8:51 AM | | procedure are in the | | | | PDT | | results section. | + +--------+ + + + | KEISHA, STOOL | Routin | 02/03/2016 | | Results for this | | RESULT | e | 1:03 PM | | procedure are in the | | | | PDT | | results section. | + +--------+ + + + | CBC NO DIFFERENTIAL | Routin | 02/03/2016 | | Results for this | | | e | 4:20 AM | | procedure are in the | | | | PDT | | results section. | + +--------+ + + + | MAGNESIUM | Routin | 02/03/2016 | | Results for this | | | e | 4:20 AM | | procedure are in the | | | | PDT | | results section. | + +--------+ + + + | BASIC METABOLIC | Routin | 02/03/2016 | | Results for this | | PANEL | e | 4:20 AM | | procedure are in the | | | | PDT | | results section. | + +--------+ + + + | CBC WITH | Add-On | 02/02/2016 | | Results for this | | DIFFERENTIAL | | 11:53 AM | | procedure are in the | | | | PDT | | results section. | + +--------+ + + + | MAGNESIUM | Routin | 02/02/2016 | | Results for this | | | e | 5:28 AM | | procedure are in the | | | | PDT | | results section. | + +--------+ + + + | BASIC METABOLIC | Routin | 02/02/2016 | | Results for this | | PANEL | e | 5:28 AM | | procedure are in the | | | | PDT | | results section. | + +--------+ + + + | MAGNESIUM | STAT | 02/01/2016 | | Results for this | | | | 10:32 AM | | procedure are in the | | | | PDT | | results section. | + +--------+ + + + | CBC WITH | Routin | 02/01/2016 | | Results for this | | DIFFERENTIAL | e | 4:58 AM | | procedure are in the | | | | PDT | | results section. | + +--------+ + + + | BASIC METABOLIC | Routin | 02/01/2016 | | Results for this | | PANEL | e | 4:58 AM | | procedure are in the | | | | PDT | | results section. | + +--------+ + + + | CAMPYLOBACTER | Routin | 01/31/2016 | | Results for this | | AG,QUAL | e | 2:29 PM | | procedure are in the | | | | PDT | | results section. | + +--------+ + + + | SHIGATOXIN 1 AND 2 | Routin | 01/31/2016 | | Results for this | | | e | 2:29 PM | | procedure are in the | | | | PDT | | results section. | + +--------+ + + + | OCCULT BLOOD, STOOL, | Routin | 01/31/2016 | | Results for this | | SPECIMEN 1 | e | 1:18 PM | | procedure are in the | | | | PDT | | results section. | + +--------+ + + + | LACTOFERRIN, FECAL, | Routin | 01/31/2016 | | Results for this | | QUAL | e | 1:18 PM | | procedure are in the | | | | PDT | | results section. | + +--------+ + + + | OVA AND PARASITE | Routin | 01/31/2016 | | Results for this | | EXAMINATION | e | 1:18 PM | | procedure are in the | | | | PDT | | results section. | + +--------+ + + + | CRYPTOSPORIDIUM AG | Routin | 01/31/2016 | | Results for this | | | e | 1:18 PM | | procedure are in the | | | | PDT | | results section. | + +--------+ + + + | GIARDIA AG, EIA, | Routin | 01/31/2016 | | Results for this | | STOOL | e | 1:18 PM | | procedure are in the | | | | PDT | | results section. | + +--------+ + + + | CLOSTRIDIUM | Routin | 01/31/2016 | | Results for this | | DIFFICILE A AND B | e | 1:18 PM | | procedure are in the | | EIA | | PDT | | results section. | + +--------+ + + + | CULTURE, STOOL | Routin | 01/31/2016 | | Results for this | | | e | 1:18 PM | | procedure are in the | | | | PDT | | results section. | + +--------+ + + + | HELICOBACTER PYLORI | Routin | 01/31/2016 | | Results for this | | BIOPSY | e | 1:10 PM | | procedure are in the | | | | PDT | | results section. | + +--------+ + + + | EGD / COLONOSCOPY | | 01/31/2016 | Ulcerative colitis | | | | | 1:03 PM | without | | | | | PDT | complications, | | | | | | unspecified location | | | | | | (HCC) | | + +--------+ + + + | EGD | Routin | 01/31/2016 | | Results for this | | | e | 1:01 PM | | procedure are in the | | | | PDT | | results section. | + +--------+ + + + | COLONOSCOPY | Routin | 01/31/2016 | | Results for this | | | e | 1:01 PM | | procedure are in the | | | | PDT | | results section. | + +--------+ + + + | CBC WITH | STAT | 01/31/2016 | | Results for this | | DIFFERENTIAL | | 7:41 AM | | procedure are in the | | | | PDT | | results section. | + +--------+ + + + | T4, FREE | Add-On | 01/31/2016 | | Results for this | | | | 7:41 AM | | procedure are in the | | | | PDT | | results section. | + +--------+ + + + | BASIC METABOLIC | STAT | 01/31/2016 | | Results for this | | PANEL | | 7:41 AM | | procedure are in the | | | | PDT | | results section. | + +--------+ + + + | SURGICAL PATHOLOGY | Routin | 01/31/2016 | | Results for this | | EXAM | e | 12:00 AM | | procedure are in the | | | | PDT | | results section. | + +--------+ + + + | ECHO COMPLETE | Routin | 01/30/2016 | | Results for this | | | e | 9:55 AM | | procedure are in the | | | | PDT | | results section. | + +--------+ + + + | THYROID PANEL | Routin | 01/30/2016 | | Results for this | | | e | 8:33 AM | | procedure are in the | | | | PDT | | results section. | + +--------+ + + + | CLOSTRIDIUM | Routin | 01/30/2016 | | Results for this | | DIFFICILE A AND B | e | 6:49 AM | | procedure are in the | | EIA | | PDT | | results section. | + +--------+ + + + | CULTURE, | Routin | 01/30/2016 | | Results for this | | RESPIRATORY, LOWER, | e | 6:49 AM | | procedure are in the | | SMEAR | | PDT | | results section. | + +--------+ + + + | TROPONIN I | Routin | 01/30/2016 | | Results for this | | | e | 1:33 AM | | procedure are in the | | | | PDT | | results section. | + +--------+ + + + | SEDIMENTATION RATE | Routin | 01/30/2016 | | Results for this | | | e | 1:33 AM | | procedure are in the | | | | PDT | | results section. | + +--------+ + + + | CBC NO DIFFERENTIAL | Routin | 01/30/2016 | | Results for this | | | e | 1:33 AM | | procedure are in the | | | | PDT | | results section. | + +--------+ + + + | C-REACTIVE PROTEIN | Routin | 01/30/2016 | | Results for this | | | e | 1:33 AM | | procedure are in the | | | | PDT | | results section. | + +--------+ + + + | COMPREHENSIVE | Routin | 01/30/2016 | | Results for this | | METABOLIC PANEL | e | 1:33 AM | | procedure are in the | | | | PDT | | results section. | + +--------+ + + + | B TYPE NATRIURETIC | Add-On | 01/30/2016 | | Results for this | | PEPTIDE | | 1:30 AM | | procedure are in the | | | | PDT | | results section. | + +--------+ + + + | LVEF VALUE | Routin | 01/30/2016 | | Results for this | | | e | | | procedure are in the | | | | | | results section. | + +--------+ + + + | CULTURE, MRSA | Routin | 01/29/2016 | | Results for this | | | e | 8:12 PM | | procedure are in the | | | | PDT | | results section. | + +--------+ + + + | CT ANGIOGRAM | Routin | 01/29/2016 | | Results for this | | PULMONARY | e | 4:17 PM | | procedure are in the | | | | PDT | | results section. | + +--------+ + + + | TROPONIN I | Add-On | 01/29/2016 | | Results for this | | | | 1:35 PM | | procedure are in the | | | | PDT | | results section. | + +--------+ + + + | D-DIMER | Routin | 01/29/2016 | | Results for this | | | e | 1:35 PM | | procedure are in the | | | | PDT | | results section. | + +--------+ + + + | TSH | Routin | 01/29/2016 | | Results for this | | | e | 1:35 PM | | procedure are in the | | | | PDT | | results section. | + +--------+ + + + documented in this encounter Results ECG 12 lead (02/13/2016 11:56 AM PDT) + + + | Narrative | Performed At | + + + | Monty Gamez MD 02/13/2016 11:56 Adult ECG Report | [facility] | | Name: Yamilet Hernandes Age: 66 y.o. Gender: female | | | 02/01/16 at 10:09 Narrative Interpretation: Atrial fibrillation. | | | Left axis deviation. | | + + + + +---------+ + + | Performing | Address | City/State/Zipcode | Phone Number | | Organization | | | | + +---------+ + + | [facility] | | | | + +---------+ + + Magnesium (02/04/2016 8:51 AM PDT) + +-------+ + + + | Component | Value | Ref Range | Performed | Pathologist | | | | | At | Signature | + +-------+ + + + | Magnesium | 1.9 | 1.8 - 2.5 mg/dL | [facility] | | | | | | [facility] | | | | | | [facility] | | | | | | [facility] - | | | | | | LABORATORY | | + +-------+ + + + + + | Specimen | + + | Blood | + + + + + + + | Performing | Address | City/State/Zipcode | Phone Number | | Organization | | | | + + + + + | [facility] | [address] | [place] | [phone] | | [facility] | | [address] | | | - LABORATORY | | | | + + + + + Basic Metabolic Panel (02/04/2016 8:51 AM PDT) + + + + + + | Component | Value | Ref Range | Performed | Pathologist | | | | | At | Signature | + + + + + + | Na | 135 (L) | 136 - 149 | [facility] | | | | | mmol/L | [facility] | | | | | | [facility] | | | | | | CENTER - | | | | | | LABORATORY | | + + + + + + | K | 4.4 | 3.5 - 5.1 | [facility] | | | | | mmol/L | [facility] | | | | | | [facility] | | [facility] | | | CENTER - | | | | | | LABORATORY | | + + + + + + | Cl | 102 | 98 - 109 mmol/L | [facility] | | | | | | [facility] | | | | | | [facility] | | | | | | C[facility] - | | | | | | LABORATORY | | + + + + + + | CO2 | 24 | 24 - 31 mmol/L | [facility] | | | | | | [facility] | | | | | | [facility] | | | | | | CENTER - | | | | | | LABORATORY | | + + + + + + | Anion Gap | 9 | 3 - 16 mmol/L | [facility] | | | | | | [facility] | | | | | | [facility] | | | | | | CENTER - | | | | | | LABORATORY | | + + + + + + | Glucose | 99 | 70 - 109 mg/dL | [facility] | | | | | | [facility] | | | | | | [facility] | | | | | | C[facility] - | | | | | | LABORATORY | | + + + + + + | BUN | 8 | 7 - 18 mg/dL | [facility] | | | | | | [facility] | | | [facility] | | [facility] | | | | | | CENTER - | | | | | | LABORATORY | | + + + + + + | Creatinine | 0.91 | 0.60 - 1.30 | [facility] | | | | | mg/dL | [facility] | | | | | | [facility] | | | | | | CENTER - | | | | | | LABORATORY | | + + + + + + | eGFR if not | >60Comment: GLOMERULAR | >=60 | [facility] | | | | FILTRATION | mL/min/1.73m2 | [facility] | | | ZAMBIAN | RATE,ESTIMATED | | MEDICAL | | | | mL/min/1.63r0Seln than | | CENTER - | | | | 60 Chronic kidney | | LABORATORY | | | | disease,if found over a | | | | | | 3-month period.Less than | | | | | | 15 Kidney failureFor | | | | | | | | | | | | Americans,multiply the | | | | | | calculated GFR by 1.21. | | | | | | | | | | + + + + + + | Calcium | 9.4 | 8.3 - 10.5 | [facility] | | | | | mg/dL | [facility] | | | | | | [facility] | | | | | | CENTER - | | | | | | LABORATORY | | + + + + + + | BUN/Creatin | 8.8 | | [facility] | | | ine Ratio | | | [facility] | | | | | | [facility] | | | | | | CENTER - | | | | | | LABORATORY | | + + + + + + + + | Specimen | + + | Blood | + + + + + + + | Performing | Address | City/State/Zipcode | Phone Number | | Organization | | | | + + + + + | [facility] | [address] | [place] | [phone] | | [facility] | | [address] | | | - LABORATORY | | | | + + + + + CBC with Differential (02/04/2016 8:51 AM PDT) + + + + + + | Component | Value | Ref Range | Performed | Pathologist | | | | | At | Signature | + + + + + + | WBC | 4.9 | 4.0 - 11.0 K/uL | [facility] | | | | | | [facility] | | | | | | [facility] | | | | | | CENTER - | | | | | | LABORATORY | | + + + + + + | RBC | 4.67 | 3.70 - 5.20 | [facility] | | | | | M/uL | [facility] | | | | | | [facility] | | | | | | CENTER - | | | | | | LABORATORY | | + + + + + + | Hemoglobin | 13.2 | 11.5 - 16.0 | [facility] | | | | | g/dL | [facility] | | | | | | [facility]ICAL | | | | | | CENTER - | | | | | | LABORATORY | | + + + + + + | Hematocrit | 40.8 | 34.0 - 47.0 % | [facility] | | | | | | [facility] | | | | | | [facility] | | | | | | CENTER - | | | | | | LABORATORY | | + + + + + + | MCV | 87.2 | 83.0 - 101.0 fL | [facility] | | | | | | [facility] | | | | | | [facility] | | | | | | CENTER - | | | | | | LABORATORY | | + + + + + + | MCH | 28.3 | 28.0 - 35.0 pg | [facility] | | | | | | [facility] | | | | | | [facility] | | | | | | C[facility] - | | | | | | LABORATORY | | + + + + + + | MCHC | 32.5 | 32.0 - 36.0 | [facility] | | | | | g/dL | [facility] | | | | | | [facility] | | | | | | CENTER - | | | | | | LABORATORY | | + + + + + + | RDW-CV | 15.6 (H) | <15.0 % | [facility] | | | | | | [facility] | | | [facility] | | [facility] | | | | | | C[facility] - | | | | | | LABORATORY | | + + + + + + | Platelet | 259 | 140 - 440 K/uL | [facility] | | | Count | | | [facility] | | | | | | [facility] | | | | | | CENTER - | | | | | | LABORATORY | | + + + + + + | MPV | 8.0 | fL | [facility] | | | | | | [facility] | | | | | | [facility] | | | | | | CENTER - | | | | | | LABORATORY | | + + + + + + | % | 65.9 | 45.0 - 82.0 % | [facility] | | | Neutrophils | | | [facility] | | | | | | MEDICAL | | | | | | CENTER - | | | | | | LABORATORY | | + + + + + + | % | 23.5 | 20.0 - 45.0 % | [facility] | | | Lymphocytes | | | [facility] | | | | | | MEDICAL | | | | | | CENTER - | | | | | | LABORATORY | | + + + + + + | % Monocytes | 9.3 | 4.0 - 12.0 % | [facility] | | | | | | [facility] | | | | | | [facility]ICAL | | | | | | CENTER - | | | | | | LABORATORY | | + + + + + + | % | 0.2 | 0.0 - 5.0 % | [facility] | | | Eosinophils | | | [facility] | | | | | | MEDICAL | | | | | | CENTER - | | | | | | LABORATORY | | + + + + + + | % Basophils | 1.1 (H) | 0.0 - 1.0 % | [facility] | | | | [facility] | | [facility] | [facility] | | | | | | [facility] - | | | | | | LABORATORY | | + + + + + + | Absolute | 3.20 | 1.80 - 8.50 | [facility] | | | Neutrophils | | K/uL | [facility] | | | | | | MEDICAL | | | | | | CENTER - | | | | | | LABORATORY | | + + + + + + | Absolute | 1.20 | 0.60 - 3.20 | [facility] | | | Lymphocytes | | K/uL | [facility] | | | | | | [facility]ICAL | | | | | | CENTER - | | | | | | LABORATORY | | + + + + + + | Absolute | 0.50 | 0.00 - 1.00 | [facility] | | | Monocytes | | K/uL | [facility] | | | | | | [facility]ICAL | | | | | | CENTER - | | | | | | LABORATORY | | + + + + + + | Absolute | 0.00 | 0.00 - 0.40 | [facility] | | | Eosinophils | | K/uL | [facility] | | | | | | [facility]ICAL | | | | | | CENTER - | | | | | | LABORATORY | | + + + + + + | Absolute | 0.10 | 0.00 - 0.10 | [facility] | | | Basophils | | K/uL | [facility] | | | | | | MEDICAL | | | | | | CENTER - | | | | | | LABORATORY | | + + + + + + + + | Specimen | + + | Blood | + + + + + + + | Performing | Address | City/State/Zipcode | Phone Number | | Organization | | | | + + + + + | [facility] | [address] | [place] | [phone] | | [facility] | | [address] | | | - LABORATORY | | | | + + + + + Culture, Stool Result (02/03/2016 1:03 PM PDT) + + + + + + | Component | Value | Ref Range | Performed | Pathologist | | | | | At | Signature | + + + + + + | Culture | No Salmonella, Shigella, | | [facility] | | | | Aeromonas, Plesiomonas, | | [facility] | | | | E. coli O157 or | | MEDICAL | | | | Yersinia isolated. | | CENTER - | | | | | | LABORATORY | | + + + + + + | Culture | 3+ Gram Positive | | [facility] | | | | FloraComment: No gram | | [facility] | | | | negative enteric tatianna | | MEDICAL | | | | isolated | | CENTER - | | | | | | LABORATORY | | + + + + + + + + | Specimen | + + | Stool - Stool | | specimen (specimen) | + + + + + + + | Performing | Address | City/State/Zipcode | Phone Number | | Organization | | | | + + + + + | [facility] | [address] | [place] | [phone] | | [facility] | | [address] | | | - LABORATORY | | | | + + + + + Magnesium (02/03/2016 4:20 AM PDT) + +-------+ + + + | Component | Value | Ref Range | Performed | Pathologist | | | | | At | Signature | + +-------+ + + + | Magnesium | 2.0 | 1.8 - 2.5 mg/dL | [facility] | | | | | | [facility] | | | | | | [facility] | | | | | | CENTER - | | | | | | LABORATORY | | + +-------+ + + + + + | Specimen | + + | Blood | + + + + + + + | Performing | Address | City/State/Zipcode | Phone Number | | Organization | | | | + + + + + | [facility] | [address] | [place] | [phone] | | [facility] | | [address] | | | - LABORATORY | | | | + + + + + Basic Metabolic Panel (02/03/2016 4:20 AM PDT) + + + + + + | Component | Value | Ref Range | Performed | Pathologist | | | | | At | Signature | + + + + + + | Na | 135 (L) | 136 - 149 | [facility] | | | | | mmol/L | [facility] | | | | | | [facility]ICAL | | | | | | CENTER - | | | | | | LABORATORY | | + + + + + + | K | 4.2 | 3.5 - 5.1 | [facility] | | | | | mmol/L | [facility] | | | | | | [facility]ICAL | | | | | | CENTER - | | | | | | LABORATORY | | + + + + + + | Cl | 104 | 98 - 109 mmol/L | [facility] | | | | | | [facility] | | | | | | [facility] | | | | | | CENTER - | | | | | | LABORATORY | | + + + + + + | CO2 | 25 | 24 - 31 mmol/L | [facility] | | | | | | [facility] | | | | | | [facility] | | | | | | CENTER - | | | | | | LABORATORY | | + + + + + + | Anion Gap | 6 | 3 - 16 mmol/L | [facility] | | | | | [facility] | | | | | | [facility] | | | | | | [facility] - | | | | | | LABORATORY | | + + + + + + | Glucose | 94 | 70 - 109 mg/dL | [facility] | | | | | | [facility] | | | | | | [facility] | | | | | | CENTER - | | | | | | LABORATORY | | + + + + + + | BUN | 5 (L) | 7 - 18 mg/dL | [facility] | | | | | | [facility] | | | | | | MEDICAL | | | | | | CENTER - | | | | | | LABORATORY | | + + + + + + | Creatinine | 0.83 | 0.60 - 1.30 | [facility] | | | | | mg/dL | [facility] | | | | | | [facility] | | | | | | [facility] - | | | | | | LABORATORY | | + + + + + + | eGFR if not | >60Comment: GLOMERULAR | >=60 | [facility] | | | | FILTRATION | mL/min/1.73m2 | [facility] | | | [facility] | RATE,ESTIMATED | | MEDICAL | | | | mL/min/1.61k8Mohv than | | CENTER - | | | | 60 Chronic kidney | | LABORATORY | | | | disease,if found over a | | | | | | 3-month period.Less than | | | | | | 15 Kidney failureFor | | | | | | | | | | | | Americans,multiply the | | | | | | calculated GFR by 1.21. | | | | | | | | | | + + + + + + | Calcium | 9.5 | 8.3 - 10.5 | [facility] | | | | | mg/dL | [facility] | | | [facility] | | [facility] | | | | | | [facility] - | | | | | | LABORATORY | | + + + + + + | BUN/Creatin | 6.0 | | [facility] | | | ine Ratio | | | [facility] | | | | | | [facility] | | | | | | [facility] - | | | | | | LABORATORY | | + + + + + + + + | Specimen | + + | Blood | + + + + + + + | Performing | Address | City/State/Zipcode | Phone Number | | Organization | | | | + + + + + | [facility] | [address] [address] | [place] | [phone] | | [facility] | | [address] | | | - LABORATORY | | | | + + + + + CBC no Differential (02/03/2016 4:20 AM PDT) + + + + + + | Component | Value | Ref Range | Performed | Pathologist | | | | | At | Signature | + + + + + + | WBC | 3.5 (L) | 4.0 - 11.0 K/uL | [facility] | | | | | | [facility] | | [facility] | | [facility] | | | | [facility] - | | | | | | LABORATORY | | + + + + + + | RBC | 4.38 | 3.70 - 5.20 | [facility] | | | | | M/uL | [facility] | | | | | | [facility] | | | | | | [facility] - | | | | | | LABORATORY | | + + + + + + | Hemoglobin | 12.6 | 11.5 - 16.0 | [facility] | | | | | g/dL | [facility] | | | | | | [facility] | | | | | | C[facility] - | | | | | | LABORATORY | | + + + + + + | Hematocrit | 38.1 | 34.0 - 47.0 % | [facility] | | | | | | [facility] | | | | | | [facility] | | | | | | [facility] - | | | | | | LABORATORY | | + + + + + + | MCV | 87.1 | 83.0 - 101.0 fL | [facility] | | | | | | [facility] | | | | | | [facility] | | | | | | [facility] - | | | | | | LABORATORY | | + + + + + + | MCH | 28.8 | 28.0 - 35.0 pg | [facility] | | | | | | [facility] | | | | | | [facility] | | | | | | [facility] - | | | | | | LABORATORY | | + + + + + + | MCHC | 33.1 | 32.0 - 36.0 | [facility] | | | | | g/dL | [facility] | | | | | | [facility] | | | | | | C[facility] - | | | | | | LABORATORY | | + + + + + + | RDW-CV | 15.6 (H) | <15.0 % | [facility] | | | | | | [facility] | | | | | | [facility] | | | | | | [facility] - | | | | | | LABORATORY | | + + + + + + | Platelet | 180 | 140 - 440 K/uL | [facility] | | | Count | | | [facility] | | | | | | [facility] | | | | | | [facility]ENTER - | | | | | | LABORATORY | | + + + + + + | MPV | 8.1 | fL | [facility] | | | [facility] | [facility] | [facility] | | | | | | [facility] - | | | | | | LABORATORY | | + + + + + + + + | Specimen | + + | Blood | + + + + + + + | Performing | Address | City/State/Zipcode | Phone Number | | Organization | | | | + + + + + | [facility] | [address] | [place] | [phone] | | [facility] | | [address] | | | - LABORATORY | | | | + + + + + CBC with Differential (02/02/2016 11:53 AM PDT) + + + + + + | Component | Value | Ref Range | Performed | Pathologist | | | | | At | Signature | + + + + + + | WBC | 3.7 (L) | 4.0 - 11.0 K/uL | [facility] | | | | | | [facility] | | | | | | [facility] | | | | | | [facility]ENTER - | | | | | | LABORATORY | | + + + + + + | RBC | 4.53 | 3.70 - 5.20 | [facility] | | | | | M/uL | [facility] | | | | | | [facility] | | | | | | CENTER - | | | | | | LABORATORY | | + + + + + + | Hemoglobin | 12.7 | 11.5 - 16.0 | [facility] | | | | | g/dL | [facility] | | | | | | [facility] | | | | | | CENTER - | | | | | | LABORATORY | | + + + + + + | Hematocrit | 38.8 | 34.0 - 47.0 % | [facility] | | | | | | [facility] | | | | | | [facility] | | | | | | [facility] - | | | | | | LABORATORY | | + + + + + + | MCV | 85.7 | 83.0 - 101.0 fL | [facility] | | | | | | [facility] | | | | | | [facility] | | | | | | [facility] - | | | | | | LABORATORY | | + + + + + + | MCH | 28.1 | 28.0 - 35.0 pg | [facility] | | | | | | [facility] | | | | | | [facility] | | | | | | [facility]ENTER - | | | | | | LABORATORY | | + + + + + + | MCHC | 32.8 | 32.0 - 36.0 | [facility] | | | | | g/dL | [facility] | | | | | | [facility] | | | | | | CENTER - | | | | | | LABORATORY | | + + + + + + | RDW-CV | 15.2 (H) | <15.0 % | [facility] | | | | | | [facility] | | | | | | [facility] | | | | | | [facility] - | | | | | | LABORATORY | | + + + + + + | Platelet | 181 | 140 - 440 K/uL | [facility] | | | Count | | | [facility] | | | | | | [facility] | | | | | | CENTER - | | | | | | LABORATORY | | + + + + + + | MPV | 7.9 | fL | [facility] | | | | | | [facility] | | | | | | [facility] | | | | | | CENTER - | | | | | | LABORATORY | | + + + + + + | % | 60.5 | 45.0 - 82.0 % | [facility] | | | Neutrophils | | | [facility] | | | | | | [facility]ICAL | | | | | | CENTER - | | | | | | LABORATORY | | + + + + + + | % | 28.0 | 20.0 - 45.0 % | [facility] | | | Lymphocytes | | | [facility] | | | | | | [facility] | | | | | | CENTER - | | | | | | LABORATORY | | + + + + + + | % Monocytes | 9.2 | 4.0 - 12.0 % | [facility] | | | | | | [facility] | | | | | | [facility] | | | | | | CENTER - | | | | | | LABORATORY | | + + + + + + | % | 0.9 | 0.0 - 5.0 % | [facility] | | | Eosinophils | | | [facility] | | | | | | MEDICAL | | | | | | CENTER - | | | | | | LABORATORY | | + + + + + + | % Basophils | 1.4 (H) | 0.0 - 1.0 % | [facility] | | | | | | [facility] | | | | | | [facility] | | | | | | CENTER - | | | | | | LABORATORY | | + + + + + + | Absolute | 2.20 | 1.80 - 8.50 | [facility] | | | Neutrophils | | K/uL | [facility] | | | | | | [facility]ICAL | | | | | | CENTER - | | | | | | LABORATORY | | + + + + + + | Absolute | 1.00 | 0.60 - 3.20 | [facility] | | | Lymphocytes | | K/uL | [facility] | | | | | | [facility]ICAL | | | | | | CENTER - | | | | | | LABORATORY | | + + + + + + | Absolute | 0.30 | 0.00 - 1.00 | [facility] | | | Monocytes | | K/uL | [facility] | | | | | | [facility]ICAL | | | | | | CENTER - | | | | | | LABORATORY | | + + + + + + | Absolute | 0.00 | 0.00 - 0.40 | [facility] | | | Eosinophils | | K/uL | [facility] | | | | | | [facility]ICAL | | | | | | CENTER - | | | | | | LABORATORY | | + + + + + + | Absolute | 0.10 | 0.00 - 0.10 | [facility] | | | Basophils | | K/uL | [facility] | | | | | | [facility]ICAL | | | | | | CENTER - | | | | | | LABORATORY | | + + + + + + + + | Specimen | + + | Blood | + + + + + + + | Performing | Address | City/State/Zipcode | Phone Number | | Organization | | | | + + + + + | [facility] | [address] | [place] | [phone] | | [facility] | | [address] | | | - LABORATORY | | | | + + + + + Magnesium (02/02/2016 5:28 AM PDT) + +-------+ + + + | Component | Value | Ref Range | Performed | Pathologist | | | | | At | Signature | + +-------+ + + + | Magnesium | 2.0 | 1.8 - 2.5 mg/dL | [facility] | | | | | | [facility] | | | | | | [facility] | | | | | | CENTER - | | | | | | LABORATORY | | + +-------+ + + + + + | Specimen | + + | Blood | + + + + + + + | Performing | Address | City/State/Zipcode | Phone Number | | Organization | | | | + + + + + | [facility] | [address] | [place] | [phone] | | [facility] | | [address] | | | - LABORATORY | | | | + + + + + Basic Metabolic Panel (02/02/2016 5:28 AM PDT) + + + + + + | Component | Value | Ref Range | Performed | Pathologist | | | | | At | Signature | + + + + + + | Na | 136 | 136 - 149 | [facility] | | | | | mmol/L | [facility] | | | | | | [facility] | | | | | | CENTER - | | | | | | LABORATORY | | + + + + + + | K | 4.0 | 3.5 - 5.1 | [facility] | | | | | mmol/L | [facility] | | | | | | [facility] | | | | | | CENTER - | | | | | | LABORATORY | | + + + + + + | Cl | 103 | 98 - 109 mmol/L | [facility] | | | | | | [facility] | | | | | | [facility]ICAL | | | | | | CENTER - | | | | | | LABORATORY | | + + + + + + | CO2 | 25 | 24 - 31 mmol/L | [facility] | | | | | | [facility] | | | | | | [facility]ICAL | | | | | | CENTER - | | | | | | LABORATORY | | + + + + + + | Anion Gap | 8 | 3 - 16 mmol/L | [facility] | | | | | | [facility] | | | | | | [facility]ICAL | | | | | | CENTER - | | | | | | LABORATORY | | + + + + + + | Glucose | 99 | 70 - 109 mg/dL | [facility] | | | | | | [facility] | | [facility] | | | [facility] | | | | | | CENTER - | | | | | | LABORATORY | | + + + + + + | BUN | 4 (L) | 7 - 18 mg/dL | [facility] | | | | | | [facility] | | | | | | [facility] | | | | | | CENTER - | | | | | | LABORATORY | | + + + + + + | Creatinine | 0.80 | 0.60 - 1.30 | [facility] | | | | | mg/dL | [facility] | | | | | | MEDICAL | | | | | | CENTER - | | | | | | LABORATORY | | + + + + + + | eGFR if not | >60Comment: GLOMERULAR | >=60 | [facility] | | | | FILTRATION | mL/min/1.73m2 | [facility] | | | ZAMBIAN | RATE,ESTIMATED | | MEDICAL | | | | mL/min/1.99u8Dxvw than | | CENTER - | | | | 60 Chronic kidney | | LABORATORY | | | | disease,if found over a | | | | | | 3-month period.Less than | | | | | | 15 Kidney failureFor | | | | | | | | | | | | Americans,multiply the | | | | | | calculated GFR by 1.21. | | | | | | | | | | + + + + + + | Calcium | 9.1 | 8.3 - 10.5 | [facility] | | | | | mg/dL | [facility] | | | | | | MEDICAL | | | | | | CENTER - | | | | | | LABORATORY | | + + + + + + | BUN/Creatin | 5.0 | | [facility] | | | ine Ratio | | | [facility] | | | | | | MEDICAL | | | | | | CENTER - | | | | | | LABORATORY | | + + + + + + + + | Specimen | + + | Blood | + + + + + + + | Performing | Address | City/State/Zipcode | Phone Number | | Organization | | | | + + + + + | [facility] | [address] | [place] | [phone] | | [facility] | | [address] | | | - LABORATORY | | | | + + + + + Magnesium (02/01/2016 10:32 AM PDT) + +---------+ + + + | Component | Value | Ref Range | Performed | Pathologist | | | | | At | Signature | + +---------+ + + + | Magnesium | 1.6 (L) | 1.8 - 2.5 mg/dL | [facility] | | | | [facility] | | | [facility] | [facility] | | | | | | [facility] - | | | | | | LABORATORY | | + +---------+ + + + + + | Specimen | + + | Blood | + + + + + + + | Performing | Address | City/State/Zipcode | Phone Number | | Organization | | | | + + + + + | [facility] | [address] | [place] | [phone] | | [facility] | | [address] | | | - LABORATORY | | | | + + + + + CBC with Differential (02/01/2016 4:58 AM PDT) + + + + + + | Component | Value | Ref Range | Performed | Pathologist | | | | | At | Signature | + + + + + + | WBC | 2.4 (LL)Comment: | 4.0 - 11.0 K/uL | [facility] | | | | Consistent with previous | | [facility] | | | | results. | | MEDICAL | | | | | | CENTER - | | | | | | LABORATORY | | + + + + + + | RBC | 4.09 | 3.70 - 5.20 | [facility] | | | | | M/uL | [facility] | | | | | | MEDICAL | | | | | | CENTER - | | | | | | LABORATORY | | + + + + + + | Hemoglobin | 11.7 | 11.5 - 16.0 | [facility] | | | | | g/dL | [facility] | | | | | | MEDICAL | | | | | | CENTER - | | | | | | LABORATORY | | + + + + + + | Hematocrit | 35.3 | 34.0 - 47.0 % | [facility] | | | | | | [facility] | | | | | | [facility]ICAL | | | | | | CENTER - | | | | | | LABORATORY | | + + + + + + | MCV | 86.3 | 83.0 - 101.0 fL | [facility] | | | | | | [facility] | | | | | | [facility]ICAL | | | | | | CENTER - | | | | | | LABORATORY | | + + + + + + | MCH | 28.5 | 28.0 - 35.0 pg | [facility] | | | | | | [facility] | | | | | | [facility]ICAL | | | | | | CENTER - | | | | | | LABORATORY | | + + + + + + | MCHC | 33.1 | 32.0 - 36.0 | [facility] | | | | | g/dL | [facility] | | | | | | MEDICAL | | | | | | CENTER - | | | | | | LABORATORY | | + + + + + + | RDW-CV | 15.5 (H) | <15.0 % | [facility] | | | | | | [facility] | | | | | | MEDICAL | | | | | | CENTER - | | | | | | LABORATORY | | + + + + + + | Platelet | 110 (L) | 140 - 440 K/uL | [facility] | | | Count | | | [facility] | | | | | | [facility]ICAL | | | | | | CENTER - | | | | | | LABORATORY | | + + + + + + | MPV | 7.9 | fL | [facility] | | | | | | [facility] | | | | | | [facility]ICAL | | | | | | CENTER - | | | | | | LABORATORY | | + + + + + + | % | 51.1 | 45.0 - 82.0 % | [facility] | | | Neutrophils | | | [facility] | | | | | | MEDICAL | | | | | | CENTER - | | | | | | LABORATORY | | + + + + + + | % | 35.5 | 20.0 - 45.0 % | [facility] | | | Lymphocytes | | | [facility] | | | | | | MEDICAL | | | | | | CENTER - | | | | | | LABORATORY | | + + + + + + | % Monocytes | 11.6 | 4.0 - 12.0 % | [facility] | | | | | | [facility] | | | | | | MEDICAL | | | | | | CENTER - | | | | | | LABORATORY | | + + + + + + | % | 1.2 | 0.0 - 5.0 % | [facility] | | | Eosinophils | | | [facility] | | | | | | MEDICAL | | | | | | CENTER - | | | | | | LABORATORY | | + + + + + + | % Basophils | 0.6 | 0.0 - 1.0 % | [facility] | | | | | | [facility] | | | | | | MEDICAL | | | | | | CENTER - | | | | | | LABORATORY | | + + + + + + | Absolute | 1.20 (L) | 1.80 - 8.50 | [facility] | | | Neutrophils | | K/uL | [facility] | | | | | | [facility]ICAL | | | | | | CENTER - | | | | | | LABORATORY | | + + + + + + | Absolute | 0.90 | 0.60 - 3.20 | [facility] | | | Lymphocytes | | K/uL | [facility] | | | | | | MEDICAL | | | | | | CENTER - | | | | | | LABORATORY | | + + + + + + | Absolute | 0.30 | 0.00 - 1.00 | [facility] | | | Monocytes | | K/uL | [facility] | | | | | | MEDICAL | | | | | | CENTER - | | | | | | LABORATORY | | + + + + + + | Absolute | 0.00 | 0.00 - 0.40 | [facility] | | | Eosinophils | | K/uL | [facility] | | | | | | MEDICAL | | | | | | CENTER - | | | | | | LABORATORY | | + + + + + + | Absolute | 0.00 | 0.00 - 0.10 | [facility] | | | Basophils | | K/uL | [facility] | | | | | | MEDICAL | | | | | | CENTER - | | | | | | LABORATORY | | + + + + + + + + | Specimen | + + | Blood | + + + + + + + | Performing | Address | City/State/Zipcode | Phone Number | | Organization | | | | + + + + + | [facility] | [address] | [place] | [phone] | | [facility] | | [address] | | | - LABORATORY | | | | + + + + + Basic Metabolic Panel (02/01/2016 4:58 AM PDT) + + + + + + | Component | Value | Ref Range | Performed | Pathologist | | | | | At | Signature | + + + + + + | Na | 137 | 136 - 149 | [facility] | | | | | mmol/L | [facility] | | | | | | MEDICAL | | | | | | CENTER - | | | | | | LABORATORY | | + + + + + + | K | 3.8 | 3.5 - 5.1 | [facility] | | | | | mmol/L | [facility] | | | | | | MEDICAL | | | | | | CENTER - | | | | | | LABORATORY | | + + + + + + | Cl | 104 | 98 - 109 mmol/L | [facility] | | | | | | [facility] | | | | | | [facility]ICAL | | | | | | CENTER - | | | | | | LABORATORY | | + + + + + + | CO2 | 26 | 24 - 31 mmol/L | [facility] | | | | | | [facility] | | | | | | MEDICAL | | | | | | CENTER - | | | | | | LABORATORY | | + + + + + + | Anion Gap | 7 | 3 - 16 mmol/L | [facility] | | | | | | [facility] | | | | | | MEDICAL | | | | | | CENTER - | | | | | | LABORATORY | | + + + + + + | Glucose | 89 | 70 - 109 mg/dL | [facility] | | | | | | [facility] | | | | | | [facility]ICAL | | | | | | CENTER - | | | | | | LABORATORY | | + + + + + + | BUN | 5 (L) | 7 - 18 mg/dL | [facility] | | | | | | [facility] | | | | | | MEDICAL | | | | | | CENTER - | | | | | | LABORATORY | | + + + + + + | Creatinine | 0.73 | 0.60 - 1.30 | [facility] | | | | | mg/dL | [facility] | | | | | | MEDICAL | | | | | | CENTER - | | | | | | LABORATORY | | + + + + + + | eGFR if not | >60Comment: GLOMERULAR | >=60 | [facility] | | | | FILTRATION | mL/min/1.73m2 | [facility] | | | ZAMBIAN | RATE,ESTIMATED | | MEDICAL | | | | mL/min/1.81w9Psjo than | | CENTER - | | | | 60 Chronic kidney | | LABORATORY | | | | disease,if found over a | | | | | | 3-month period.Less than | | | | | | 15 Kidney failureFor | | | | | | | | | | | | Americans,multiply the | | | | | | calculated GFR by 1.21. | | | | | | | | | | + + + + + + | Calcium | 8.7 | 8.3 - 10.5 | [facility] | | | | | mg/dL | [facility] | | | | | | MED[facility] | | | | | | CENTER - | | | | | | LABORATORY | | + + + + + + | BUN/Creatin | 6.8 | | [facility] | | | ine Ratio | | | [facility] | | | | | | MEDICAL | | | | | | CENTER - | | | | | | LABORATORY | | + + + + + + + + | Specimen | + + | Blood | + + + + + + + | Performing | Address | City/State/Zipcode | Phone Number | | Organization | | | | + + + + + | [facility] | [address] | [place] | [phone] | | [facility] | | [address] | | | - LABORATORY | | | | + + + + + Campylobacter AgQual (01/31/2016 2:29 PM PDT) + + + + + + | Component | Value | Ref Range | Performed | Pathologist | | | | | At | Signature | + + + + + + | Campylobact | Negative | Negative | [facility] | | | er AG, Qual | | | [facility] | | | | | | MEDICAL | | | | | | CENTER - | | | | | | LABORATORY | | + + + + + + + + | Specimen | + + | Stool - Stool | | specimen (specimen) | + + + + + + + | Performing | Address | City/State/Zipcode | Phone Number | | Organization | | | | + + + + + | [facility] | [address] | [place] | [phone] | | [facility] | | [address] | | | - LABORATORY | | | | + + + + + Shigatoxin 1 and 2 (01/31/2016 2:29 PM PDT) + + + + + + | Component | Value | Ref Range | Performed | Pathologist | | | | | At | Signature | + + + + + + | Shigatoxin | Negative | Negative | [facility] | | | 1 | | | [facility] | | | | | | MEDICAL | | | | | | CENTER - | | | | | | LABORATORY | | + + + + + + | Shigatoxin | Negative | Negative | [facility] | | | 2 | | | [facility] | | | | | | MEDICAL | | | | | | CENTER - | | | | | | LABORATORY | | + + + + + + + + | Specimen | + + | Stool - Stool | | specimen (specimen) | + + + + + + + | Performing | Address | City/State/Zipcode | Phone Number | | Organization | | | | + + + + + | [facility] | [address] | [place] | [phone] | | [facility] | | [address] | | | - LABORATORY | | | | + + + + + Occult Blood, Stool, Specimen 1 (01/31/2016 1:18 PM PDT) + + + + + + | Component | Value | Ref Range | Performed | Pathologist | | | | | At | Signature | + + + + + + | STOOL | Negative | | [facility] | | | OCCULT | | | [facility] | | | BLOOD X1 | | | MEDICAL | | | | | | CENTER - | | | | | | LABORATORY | | + + + + + + + + | Specimen | + + | Stool - Stool | | specimen (specimen) | + + + + + + + | Performing | Address | City/State/Zipcode | Phone Number | | Organization | | | | + + + + + | [facility] | [address] | [place], [place] | [phone] | | [facility] | | [address] | | | - LABORATORY | | | | + + + + + Lactoferrin, Fecal, Qual (01/31/2016 1:18 PM PDT) + + + + + + | Component | Value | Ref Range | Performed | Pathologist | | | | | At | Signature | + + + + + + | Lactoferrin | Positive (A) | Negative | [facility] | | | , Qual | | | [facility] | | | | | | MEDICAL | | | | | | CENTER - | | | | | | LABORATORY | | + + + + + + + + | Specimen | + + | Stool - Stool | | specimen (specimen) | + + + + + + + | Performing | Address | City/State/Zipcode | Phone Number | | Organization | | | | + + + + + | [facility] | [address] | [place] | [phone] | | [facility] | | [address] | | | - LABORATORY | | | | + + + + + Clostridium difficile A and B EIA (01/31/2016 1:18 PM PDT) + + + + + + | Component | Value | Ref Range | Performed | Pathologist | | | | | At | Signature | + + + + + + | Clostridium | Negative | Negative | [facility] | | | Diff | | | [facility] | | | | | | MEDICAL | | | | | | CENTER - | | | | | | LABORATORY | | + + + + + + | Clostridium | NegativeComment: | | [facility] | | | Difficile | Negative for toxigenic | | [facility] | | | G[facility] Antigen | Clostridium difficile | | MEDICAL | | | | | | CENTER - | | | | | | LABORATORY | | + + + + + + + + | Specimen | + + | Stool - Stool | | specimen (specimen) | + + + + + + + | Performing | Address | City/State/Zipcode | Phone Number | | Organization | | | | + + + + + | [facility] | [address] | [place] | [phone] | | [facility] | | [address] | | | - LABORATORY | | | | + + + + + Ova and Parasite Examination (01/31/2016 1:18 PM PDT) + + + + + + | Component | Value | Ref Range | Performed | Pathologist | | | | | At | Signature | + + + + + + | O/P IDENT | See CommentsComment: | | [facility] | | | | Accession No. | | [facility] | | | | | | | | | | [id number] | | | | | | Source | | | | | | StoolResult | | | | | | | | | | | | No Ova or | | | | | | Parasites seen | | | | | | | | | | | | Fecal | | | | | | leukocytes seen | | | | | | | | | | | | This | | | | | | test will not detect | | | | | | Cyclospora, | | | | | | | | | | | | | | | | | | Cryptosporidium or | | | | | | Cystoisospora | | | | | | | | | | | | | | | | | | (Isospora). For these | | | | | | organisms | | | | | | | | | | | | refer to | | | | | | Coccidia Stain (test | | | | | | code | | | | | | | | | | | | CRYSM). | | | | + + + + + + | O/P REPORT | Report Status | | [facility]FER[facility] | | | STAT | Final | | [facility] | | | | 04/13/2016Comment: | | | | | | Testing Performed: | | | | | | [facility] | | | | | | [facility], [address] | | | | | | [place] [address] | | | | + + + + + + + + | Specimen | + + | Stool specimen | | (specimen) - Stool | + + + + + + + | Performing | Address | City/State/Zipcode | Phone Number | | Organization | | | | + + + + + | [facility] | [address] | [place] [address] | [phone] | + + + + + Cryptosporidium Ag (01/31/2016 1:18 PM PDT) + + + + + + | Component | Value | Ref Range | Performed | Pathologist | | | | | At | Signature | + + + + + + | Cryptospori | Negative | Negative | [facility] | | | dium | | | [facility] | | | Antigen | | | [facility] | | | | | | [facility] - | | | | | | LABORATORY | | + + + + + + + + | Specimen | + + | Stool - Stool | | specimen (specimen) | + + + + + + + | Performing | Address | City/State/Zipcode | Phone Number | | Organization | | | | + + + + + | [facility] | [address] | [place] | [phone] | | [facility] | | [address] | | | - LABORATORY | | | | + + + + + Giardia Ag, EIA, Stool (01/31/2016 1:18 PM PDT) + + + + + + | Component | Value | Ref Range | Performed | Pathologist | | | | | At | Signature | + + + + + + | Giardia | Negative | Negative | [facility] | | | Antigen, | | | [facility] | | | Stool | | | MEDICAL | | | | | | CENTER - | | | | | | LABORATORY | | + + + + + + + + | Specimen | + + | Stool - Stool | | specimen (specimen) | + + + + + + + | Performing | Address | City/State/Zipcode | Phone Number | | Organization | | | | + + + + + | [facility] | [address] | [place] | [phone] | | [facility] | | [address] | | | - LABORATORY | | | | + + + + + Helicobactor pylori Biopsy (01/31/2016 1:10 PM PDT) + + + + + + | Component | Value | Ref Range | Performed | Pathologist | | | | | At | Signature | + + + + + + | Helicobacte | Negative | Negative | [facility] | | | r pylori Ag | | | [facility] | | | | | | MEDICAL | | | | | | CENTER - | | | | | | LABORATORY | | + + + + + + + + | Specimen | + + | Tissue - Entire | | pyloric antrum (body | | structure) | + + + + + + + | Performing | Address | City/State/Zipcode | Phone Number | | Organization | | | | + + + + + | [facility] | [address] | [place] | [phone] | | [facility] | | [address] | | | - LABORATORY | | | | + + + + + EGD (01/31/2016 1:01 PM PDT) + + | Specimen | + + | | + + + + -+ | Narrative | Performed At | + + -+ | | [facility] | | GastroenterologyPatient Name: Yamilet RickettsEldarocednatasha Date: 01/31/2016 | [facility] | | 1:01 PMMRN: [id number] #: [id number] of : | | | 1950dmit Type: InpatientAge: 66[facility] 01Gender: FemaleNote | | | Status: FinalizedAttending MD: Brett Wing, MDProcedure: | | | Upper GI endoscopyIndications: Esophageal dysphagia, | | | Weight lossProviders: Brett Wing MD, Leanna Chandler | | | SHO Domínguez, Suzette Trujillo, | | | Computer Science Instructor, Tima Romo MD (Anesthesia Staff)Medicines: | | | Sedation Required Anesthesia Staff AssistanceComplications: No | | | immediate complications. Estimated blood loss: Minimal.Procedure: | | | Pre-Anesthesia Assessment: - Prior to the procedure, a | | | History and Physical was performed, and patient medications, | | | allergies and sensitivities were reviewed. The patient's | | | tolerance of previous anesthesia was reviewed. - Prior to the | | | procedure, a History and Physical was performed, and patient | | | medications and allergies were reviewed. The patient is | | | competent. The risks and benefits of the procedure and the sedation | | | options and risks were discussed with the patient. All questions | | | were answered and informed consent was obtained. Patient | | | identification and proposed procedure were verified by the | | | physician, the nurse, the anesthesiologist and the all source intelligence technician | | | in the endoscopy suite. Mental Status Examination: alert and | | | oriented. Airway Examination: normal oropharyngeal airway and | | | neck mobility and Mallampati Class III (part of the uvula and | | | soft palate visualized). Prophylactic Antibiotics: The patient | | | does not require prophylactic antibiotics. Prior Anticoagulants: | | | The patient has taken no previous anticoagulant or antiplatelet | | | agents. ASA Grade Assessment: III - A patient with severe | | | systemic disease. After reviewing the risks and benefits, the | | | patient was deemed in satisfactory condition to undergo the | | | procedure. The anesthesia plan was to use monitored anesthesia | | | care (MAC). Immediately prior to administration of medications, | | | the patient was re-assessed for adequacy to receive sedatives. | | | The heart rate, respiratory rate, oxygen saturations, blood | | | pressure, adequacy of pulmonary ventilation, and response to | | | care were monitored throughout the procedure. The physical | | | status of the patient was re-assessed after the procedure. - | | | After reviewing the risks and benefits, the patient was deemed in | | | satisfactory condition to undergo the procedure. - Using IV | | | propofol under the supervision of an anesthesiologist was | | | determined to be medically necessary for this procedure based on age | | | 65 or older, severe comorbidity (greater than ASA Grade II) and | | | patient's dependence on opiates, sedatives or hypnotics. | | | - Immediately prior to administration of medications, the patient was | | | re-assessed for adequacy to receive sedatives. - The | | | heart rate, respiratory rate, oxygen saturations, blood pressure, | | | adequacy of pulmonary ventilation, and response to care were | | | monitored throughout the procedure. - The physical status | | | of the patient was re-assessed after the procedure. After | | | obtaining informed consent, the endoscope was passed under direct | | | vision. Throughout the procedure, the patient's blood pressure, | | | pulse, and oxygen saturations were monitored continuously. The | | | endoscope was introduced through the mouth, and advanced to the | | | third part of duodenum. The upper GI endoscopy was | | | accomplished without difficulty. The patient tolerated the | | | procedure well.Findings: The cricopharyngeus, upper third of the | | | esophagus, middle third of the esophagus, lower third of the | | | esophagus, lower esophageal sphincter and gastroesophageal | | | junction were normal. A low-grade of narrowing Schatzki ring | | | (acquired) was found at the gastroesophageal junction. The | | | scope was withdrawn. Dilation was performed with a Vega | | | dilator with mild resistance at 48 Fr. Estimated blood loss was | | | minimal. A 5 cm hiatus hernia was present. Suspect | | | gastroparesis due to absence of peristalsis. Localized mild | | | inflammation was found in the prepyloric region of the stomach. | | | Biopsies were taken with a cold forceps for Helicobacter pylori | | | testing using CLOtest. Verification of patient identification for | | | the specimen was done. Estimated blood loss was minimal. | | | The duodenal bulb, first part of the duodenum, 2nd part of the | | | duodenum, area of the papilla and 3rd part of the duodenum were | | | normal. The retroflexed view confirmed previous | | | findings,Impression: - Normal cricopharyngeus, upper third of | | | esophagus, middle third of esophagus, lower third of esophagus, | | | lower esophageal sphincter and gastroesophageal junction. | | | - Low-grade of narrowing Schatzki ring. Dilated. - Hiatus | | | hernia. - Gastroparesis. - Gastritis. Biopsied. - | | | Normal duodenal bulb, first part of the duodenum, 2nd part of the | | | duodenum, area of the papilla and 3rd part of the duodenum. - | | | The retroflexed view confirmed previous findings,Recommendation: | | | - Return patient to hospital [facility] for ongoing care. - Return | | | to previous diet today. - Perform a colonoscopy today. - | | | Continue present medications. - Await pathology results. - | | | Telephone GI clinic for pathology results in 1 week.Brett Wing, | | | 01/31/2016 1:37 PMThis report has been signed electronically.Number | | | of Addenda: 0Note Initiated On: 01/31/2016 1:01 PMScope Withdrawal | | | Time: 0 hours 0 minutes 0 seconds Total Procedure Duration: 0 hours 4 | | | minutes 40 seconds Scope In: 1:09:15 PMScope Out: 1:13:55 PM | | | [facility], [address] [place] [address] | | | [id number] | | |Recommendation: | | | - Return patient to hospital [facility] for ongoing care. | | | - Return to previous diet today. | | | - Perform a colonoscopy today. | | | - Continue present medications. | | | - Await pathology results. | | | - Telephone GI clinic for pathology results in 1 week. | | |Brett Wing MD | | |01/31/2016 1:37 PM | | |This report has been signed electronically. | | |Number of Addenda: 0 | | |Note Initiated On: 01/31/2016 1:01 PM | | |Scope Withdrawal Time: 0 hours 0 minutes 0 seconds | | |Total Procedure Duration: 0 hours 4 minutes 40 seconds | | |Scope In: 1:09:15 PM | | |Scope Out: 1:13:55 PM | | | [facility], [address] [place] [address] | | | [id number] | | + + -+ + +---------+ + + | Performing | Address | City/State/Zipcode | Phone Number | | Organization | | | | + +---------+ + + | [facility] | | | | + +---------+ + + COLONOSCOPY (01/31/2016 1:01 PM PDT) + + | Specimen | + + | | + + + + -+ | Narrative | Performed At | + + -+ | | [facility] | | GastroenterologyPatient Name: Yamilet RickettsyProcedure Date: 01/31/2016 | [facility] | | 1:01 PMMRN: [id number] #: [id number] of : | | | 1950dmit Type: InpatientAge: 66[facility] 01Gender: FemaleNote | | | Status: FinalizedAttending MD: Brett Wing, [facility]ENTERrocedure: | | | ColonoscopyIndications: Clinically significant diarrhea of | | | unexplained origin, Hematochezia, | | | Personal history of ulcerative colitisProviders: Brett St | | | MD Mecca, Leanna Domínguez RN, Suzette | | | Caitlyn Trujillo, Computer Science Instructor, Tima Romo MD (Anesthesia | | | Staff)Medicines: Sedation Required Anesthesia Staff | | | AssistanceComplications: No immediate complications. Estimated | | | blood loss: Minimal.Procedure: Pre-Anesthesia Assessment: | | | - Prior to the procedure, a History and Physical was performed, and | | | patient medications, allergies and sensitivities were reviewed. | | | The patient's tolerance of previous anesthesia was reviewed. | | | - Prior to the procedure, a History and Physical was performed, | | | and patient medications and allergies were reviewed. The | | | patient is competent. The risks and benefits of the procedure | | | and the sedation options and risks were discussed with the | | | patient. All questions were answered and informed consent was | | | obtained. Patient identification and proposed procedure were | | | verified by the physician, the nurse, the anesthesiologist and | | | the all source intelligence technician in the endoscopy suite. Mental Status | | | Examination: alert and oriented. Airway Examination: normal | | | oropharyngeal airway and neck mobility and Mallampati Class III (part | | | of the uvula and soft palate visualized). Prophylactic | | | Antibiotics: The patient does not require prophylactic | | | antibiotics. Prior Anticoagulants: The patient has taken no | | | previous anticoagulant or antiplatelet agents. ASA Grade | | | Assessment: III - A patient with severe systemic disease. After | | | reviewing the risks and benefits, the patient was deemed in | | | satisfactory condition to undergo the procedure. The anesthesia plan | | | was to use monitored anesthesia care (MAC). Immediately prior | | | to administration of medications, the patient was re-assessed | | | for adequacy to receive sedatives. The heart rate, respiratory | | | rate, oxygen saturations, blood pressure, adequacy of pulmonary | | | ventilation, and response to care were monitored throughout | | | the procedure. The physical status of the patient was | | | re-assessed after the procedure. - After reviewing the risks and | | | benefits, the patient was deemed in satisfactory condition to | | | undergo the procedure. - Using IV propofol under the supervision | | | of an anesthesiologist was determined to be medically | | | necessary for this procedure based on age 65 or older, severe | | | comorbidity (greater than ASA Grade II) and patient's | | | dependence on opiates, sedatives or hypnotics. - Immediately | | | prior to administration of medications, the patient was | | | re-assessed for adequacy to receive sedatives. - The heart rate, | | | respiratory rate, oxygen saturations, blood pressure, adequacy | | | of pulmonary ventilation, and response to care were monitored | | | throughout the procedure. - The physical status of the patient | | | was re-assessed after the procedure. After I obtained informed | | | consent, the scope was passed under direct vision. Throughout | | | the procedure, the patient's blood pressure, pulse, and oxygen | | | saturations were monitored continuously. The endoscope was | | | introduced through the anus and advanced to the cecum, identified by | | | the appendiceal orifice, ileocecal valve and palpation. The | | | colonoscopy was performed without difficulty. The patient | | | tolerated the procedure well. The quality of the bowel | | | preparation was good.Findings: The perianal and digital rectal | | | examinations were normal. Pertinent negatives include normal | | | sphincter tone and no palpable rectal lesions. Inflammation | | | characterized by altered vascularity, erosions, erythema, | | | friability, granularity, mucus and shallow ulcerations was found in a | | | continuous and circumferential pattern from the rectum to the | | | transverse colon. The hepatic flexure, the ascending colon and | | | the cecum were spared. This was moderate in severity. Biopsies | | | were taken with a cold forceps for histology. Verification of | | | patient identification for the specimen was done. Estimated | | | blood loss was minimal. The retroflexed view of the distal | | | rectum and anal verge was normal and showed no anal or rectal | | | abnormalities.Impression: - Inflammation was found from the | | | rectum to the transverse colon secondary to left-sided colitis. | | | Biopsied. - The distal rectum and anal verge are normal on | | | retroflexion view.Recommendation: - Written discharge | | | instructions were provided to the patient. - Return patient to | | | hospital [facility] for ongoing care. - Return to previous diet today. | | | - Continue present medications. - Await pathology | | | results.Brett Wing MD01/31/2016 1:41 PMThis report has been signed | | | electronically.Number of Addenda: 0Note Initiated On: 01/31/2016 1:01 | | | PMScope Withdrawal Time: 0 hours 6 minutes 25 seconds Total Procedure | | | Duration: 0 hours 12 minutes 8 seconds Scope In: 1:15:51 PMScope Out: | | | 1:27:59 PM [facility], [address] [place] [address], | | | [place] [address] | | | - Continue present medications. | | | - Await pathology results. | | |Brett Wing MD | | |01/31/2016 1:41 PM | | |This report has been signed electronically. | | |Number of Addenda: 0 | | |Note Initiated On: 01/31/2016 1:01 PM | | |Scope Withdrawal Time: 0 hours 6 minutes 25 seconds | | |Total Procedure Duration: 0 hours 12 minutes 8 seconds | | |Scope In: 1:15:51 PM | | |Scope Out: 1:27:59 PM | | | [facility], [facility], [place], [place] | | | [address] | | + + -+ + +---------+ + + | Performing | Address | City/State/Zipcode | Phone Number | | Organization | | | | + +---------+ + + | [facility] | | | | + +---------+ + + T4, Free (01/31/2016 7:41 AM PDT) + +---------+ + + + | Component | Value | Ref Range | Performed | Pathologist | | | | | At | Signature | + +---------+ + + + | FT4 | 1.5 (H) | 0.6 - 1.1 ng/dL | [facility] | [facility] | [facility] | | [facility] | | | | | | C[facility] - | | | | | | LABORATORY | | + +---------+ + + + + + | Specimen | + + | Blood | + + + + + + + | Performing | Address | City/State/Zipcode | Phone Number | | Organization | | | | + + + + + | [facility] | [address] | [place] | [phone] | | [facility] | | [address] | | | - LABORATORY | | | | + + + + + CBC with Differential (01/31/2016 7:41 AM PDT) + + + + + + | Component | Value | Ref Range | Performed | Pathologist | | | | | At | Signature | + + + + + + | WBC | 2.3 (LL)Comment: | 4.0 - 11.0 K/uL | [facility] | | | | Consistent with previous | | [facility] | | | | results. | | MEDICAL | | | | | | CENTER - | | | | | | LABORATORY | | + + + + + + | RBC | 4.16 | 3.70 - 5.20 | [facility] | | | | | M/uL | [facility] | | | | | | MEDICAL | | | | | | CENTER - | | | | | | LABORATORY | | + + + + + + | Hemoglobin | 11.9 | 11.5 - 16.0 | [facility] | | | | | g/dL | [facility] | | | | | | MEDICAL | | | | | | CENTER - | | | | | | LABORATORY | | + + + + + + | Hematocrit | 35.4 | 34.0 - 47.0 % | [facility] | | | | | | [facility] | | | | | | MEDICAL | | | | | | CENTER - | | | | | | LABORATORY | | + + + + + + | MCV | 85.3 | 83.0 - 101.0 fL | [facility] | | | | | | [facility] | | | | | | MEDICAL | | | | | | CENTER - | | | | | | LABORATORY | | + + + + + + | MCH | 28.6 | 28.0 - 35.0 pg | [facility] | | | | | | [facility] | | | | | | MEDICAL | | | | | | CENTER - | | | | | | LABORATORY | | + + + + + + | MCHC | 33.6 | 32.0 - 36.0 | [facility] | | | | | g/dL | [facility] | | | | | | MEDICAL | | | | | | CENTER - | | | | | | LABORATORY | | + + + + + + | RDW-CV | 15.4 (H) | <15.0 % | [facility] | | | | | | [facility] | | | | | | MEDICAL | | | | | | CENTER - | | | | | | LABORATORY | | + + + + + + | Platelet | 114 (L) | 140 - 440 K/uL | [facility] | | | Count | | | [facility] | | | | | | MEDICAL | | | | | | CENTER - | | | | | | LABORATORY | | + + + + + + | MPV | 8.5 | fL | [facility] | | | | | | [facility] | | | | | | MEDICAL | | | | | | CENTER - | | | | | | LABORATORY | | + + + + + + | % | 55.7 | 45.0 - 82.0 % | [facility] | | | Neutrophils | | | [facility] | | | | | | MEDICAL | | | | | | CENTER - | | | | | | LABORATORY | | + + + + + + | % | 31.9 | 20.0 - 45.0 % | [facility] | | | Lymphocytes | | | [facility] | | | | | | MEDICAL | | | | | | CENTER - | | | | | | LABORATORY | | + + + + + + | % Monocytes | 10.4 | 4.0 - 12.0 % | [facility] | | | | | | [facility] | | | | | | MEDICAL | | | | | | CENTER - | | | | | | LABORATORY | | + + + + + + | % | 0.9 | 0.0 - 5.0 % | [facility] | | | Eosinophils | | | [facility] | | | | | | MEDICAL | | | | | | CENTER - | | | | | | LABORATORY | | + + + + + + | % Basophils | 1.1 (H) | 0.0 - 1.0 % | [facility] | | | | | | [facility] | | | | | | MEDICAL | | | | | | CENTER - | | | | | | LABORATORY | | + + + + + + | Absolute | 1.30 (L) | 1.80 - 8.50 | [facility] | | | Neutrophils | | K/uL | [facility] | | | | | [facility] | | | | | | CENTER - | | | | | | LABORATORY | | + + + + + + | Absolute | 0.70 | 0.60 - 3.20 | [facility] | | | Lymphocytes | | K/uL | [facility] | | | | | | MEDICAL | | | | | | CENTER - | | | | | | LABORATORY | | + + + + + + | Absolute | 0.20 | 0.00 - 1.00 | [facility] | | | Monocytes | | K/uL | [facility] | | | | | | MEDICAL | | | | | | CENTER - | | | | | | LABORATORY | | + + + + + + | Absolute | 0.00 | 0.00 - 0.40 | [facility] | | | Eosinophils | | K/uL | [facility] | | | | | | MEDICAL | | | | | | CENTER - | | | | | | LABORATORY | | + + + + + + | Absolute | 0.00 | 0.00 - 0.10 | [facility] | | | Basophils | | K/uL | [facility] | | | | | | MEDICAL | | | | | | CENTER - | | | | | | LABORATORY | | + + + + + + + + | Specimen | + + | Blood | + + + + + + + | Performing | Address | City/State/Zipcode | Phone Number | | Organization | | | | + + + + + | [facility] | [address] | [place] | [phone] | | [facility] | | [address] | | | - LABORATORY | | | | + + + + + Basic Metabolic Panel (01/31/2016 7:41 AM PDT) + + + + + + | Component | Value | Ref Range | Performed | Pathologist | | | | | At | Signature | + + + + + + | Na | 141 | 136 - 149 | [facility] | | | | | mmol/L | [facility] | | | | | | MEDICAL | | | | | | CENTER - | | | | | | LABORATORY | | + + + + + + | K | 4.2 | 3.5 - 5.1 | [facility] | | | | | mmol/L | [facility] | | | | | | MEDICAL | | | | | | CENTER - | | | | | | LABORATORY | | + + + + + + | Cl | 106 | 98 - 109 mmol/L | [facility] | | | | | | [facility] | | | | | | MEDICAL | | | | | | CENTER - | | | | | | LABORATORY | | + + + + + + | CO2 | 25 | 24 - 31 mmol/L | [facility] | | | | | | [facility] | | | | | | MEDICAL | | | | | | CENTER - | | | | | | LABORATORY | | + + + + + + | Anion Gap | 10 | 3 - 16 mmol/L | [facility] | | | | | | [facility] | | | | | | MEDICAL | | | | | | CENTER - | | | | | | LABORATORY | | + + + + + + | Glucose | 92 | 70 - 109 mg/dL | [facility] | | | | | | [facility] | | | | | | MEDICAL | | | | | | CENTER - | | | | | | LABORATORY | | + + + + + + | BUN | 5 (L) | 7 - 18 mg/dL | [facility] | | | | | | [facility] | | | | | | MEDICAL | | | | | | CENTER - | | | | | | LABORATORY | | + + + + + + | Creatinine | 0.70 | 0.60 - 1.30 | [facility] | | | | | mg/dL | [facility] | | | | | | [facility] | | | | | | CENTER - | | | | | | LABORATORY | | + + + + + + | eGFR if not | >60Comment: GLOMERULAR | >=60 | [facility] | | | | FILTRATION | mL/min/1.73m2 | [facility] | | | ZAMBIAN | RATE,ESTIMATED | | MEDICAL | | | | mL/min/1.49c8Rrdg than | | CENTER - | | | | 60 Chronic kidney | | LABORATORY | | | | disease,if found over a | | | | | | 3-month period.Less than | | | | | | 15 Kidney failureFor | | | | | | | | | | | | Americans,multiply the | | | | | | calculated GFR by 1.21. | | | | | | | | | | + + + + + + | Calcium | 9.1 | 8.3 - 10.5 | [facility] | | | | | mg/dL | [facility] | | | | | | MEDICAL | | | | | | CENTER - | | | | | | LABORATORY | | + + + + + + | BUN/Creatin | 7.1 | | [facility] | | | ine Ratio | | | [facility] | | | | | | MEDICAL | | | | | | CENTER - | | | | | | LABORATORY | | + + + + + + + + | Specimen | + + | Blood | + + + + + + + | Performing | Address | City/State/Zipcode | Phone Number | | Organization | | | | + + + + + | [facility] | [address] | [place] | [phone] | | [facility] | | [address] | | | - LABORATORY | | | | + + + + + Surgical Pathology Exam (01/31/2016 12:00 AM PDT) + + | Specimen | + + | | + + + + + | Narrative | Performed At | + + + | SPECIMEN(S): A DESCENDING COLON BIOPSY SPECIMEN SOURCE: [facility] | | DESCENDING COLON BIOPSY CLINICAL HISTORY: K51.90 (Ulcerative | [facility] | | colitis, unspecified, without complications) MICROSCOPIC | | | DESCRIPTION: Histologic sections of all submitted blocks are examined | | | by light microscopy. These findings, together with the gross | | | examination, support the pathologic diagnosis. FINAL PATHOLOGIC | | | DIAGNOSIS: Descending colon biopsy: - Moderate chronic active | | | colitis. - Negative for dysplasia. COMMENT: The histologic | | | findings are consistent with the patient's history of inflammatory | | | bowel disease (ulcerative colitis). JVR:sm:C2NR GROSS | | | DESCRIPTION: The specimen is labeled "Yamilet Hernandes" and | | | designated "descending colon bx" on the requisition. Received in | | | formalin are seven pink-dukes colored tissue fragments, 0.15-0.6 cm, all | | | into (A1). yt:KENNEDY:cammie PERFORMING LABORATORY: Tissue processing | | | and slide preparation were performed by [facility], [address], [place] [address] (Rn Postpartum: Monty | | Paras Cruz M.D. CLIA#: [id number]). Professional interpretation was | | | performed by [facility], [facility] | | | Branch, [address] [place] [address] (Rn Postpartum: | | | Monty Cruz M.D.; CLIA#: [id number]). Diagnostician: Monty | | | Renetta Cruz MD Pathologist Electronically Signed 02/01/2016 | | + + + + +---------+ + + | Performing | Address | City/State/Zipcode | Phone Number | | Organization | | | | + +---------+ + + | [facility] | | | | | [facility] | | | | + +---------+ + + ECHO Complete (01/30/2016 9:55 AM PDT) + + | Specimen | + + | | + + + + + | Narrative | Performed At | + + + | [facility] ECHOCARDIOGRAM REPORT | | | STUDY DATE: 01/30/2016 PATIENT NAME: Yamilet Hernandes | | | : 1950 PCP: Puneet Donovan | | | CLINICAL HISTORY/DIAGNOSIS: A FIB A transthoracic | | | echocardiogram with M-mode, pulsed-wave and color Doppler was | | | performed with standard views obtained. The technical quality of | | | this examination is fair. The heart rhythm during the echo is | | | atrial fibrillation. The M-mode, two-dimensional, color flow and | | | spectral Doppler data were reviewed and support the following | | | interpretation: Interpretation: Left Atrium: Moderately dilated, | | | volume index 43. Left ventricle: Mild to moderate septal hypertrophy, | | | not well characterized. Probably normal wall motion though not | | | all segments were well defined. The estimated ejection fraction is | | | 64%. Grade 2 left ventricular diastolic dysfunction. Aortic | | | root: Aortic root is normal. Right Atrium: Normal volume Right | | | ventricle: Right ventricular size is normal with normal wall | | | thickness and normal right ventricular systolic function. | | | Pericardium: No effusion seen Pulmonary artery: Probably normal in | | | size Aortic valve: Aortic valve is trileaflet and opens normally. | | | mild regurgitation is present Mitral valve: Mitral valve is | | | normal. Pulmonic valve: Grossly normal but not well imaged. | | | Tricuspid valve: Tricuspid valve is normal. Vena cava: Appeared to | | | be dilated. Dynamics were not well demonstrated | | | IMPRESSIONS: Atrial fibrillation present throughout the study | | | Moderate left atrial enlargement. Mild left ventricular septal | | | hypertrophy without obstruction. Mild aortic valvular regurgitation. | | | Left ventricular diastolic dysfunction, probably grade 2. | | | Measurements: Height: 5'5" Weight: 181 Aortic root: 31 mm | | | Aortic cusp sep: 17 mm LA: 48 mm IVS-diastole: 14 mm | | | IVS-systole: 18 mm LVPW diastole: 8 mm LVPW systole: 14 mm LV | | | diameter-diastole: 52 mm LV diameter-systole: 30 mm Fractional | | | shortenin % PFV aortic valve: m/s MPG mitral valve: | | | mmHg PFV TR jet: -- m/s RA/RV PPG: mmHg LA volume: 90 mL LA | | | index: 43 mL/m2 Mitral Inflow DT: 131 ms IVRT: 46 ms | | | Signed by: Angelita Khalil MD [facility] 01/30/2016 10:54 | | | Materials Planner/Production Planner: Landon Masters, RDCS, RDMS, RVT | | + + + Thyroid Panel (01/30/2016 8:33 AM PDT) + + + + + + | Component | Value | Ref Range | Performed | Pathologist | | | | | At | Signature | + + + + + + | T3 UPTAKE | 46.8 | 32.0 - 48.4 % | [facility] | | | | | | [facility] | | | | | | MEDICAL | | | | | | CENTER - | | | | | | LABORATORY | | + + + + + + | T4, Total | 11.2 (H) | 4.7 - 9.8 ug/dL | [facility] | | | | | | [facility] | | | | | | MEDICAL | | | | | | CENTER - | | | | | | LABORATORY | | + + + + + + | Free | 13.1 | 5.9 - 13.1 | [facility] | | | Thyroxine | | | [facility] | | | Index | | | MEDICAL | | | | | | CENTER - | | | | | | LABORATORY | | + + + + + + + + | Specimen | + + | Blood | + + + + + + + | Performing | Address | City/State/Zipcode | Phone Number | | Organization | | | | + + + + + | [facility] | [address] | [place] | [phone] | | [facility] | | [address] | | | - LABORATORY | | | | + + + + + Culture, Respiratory, Lower, Smear (01/30/2016 6:49 AM PDT) + + + + + + | Component | Value | Ref Range | Performed | Pathologist | | | | | At | Signature | + + + + + + | Culture | 3+ Usual Respiratory | | [facility] | | | | [place] | | [facility] | | | | | | MEDICAL | | | | | | CENTER - | | | | | | LABORATORY | | + + + + + + | Gram Stain | 2+ White Blood Cells | | [facility] | | | Result | | | [facility] | | | | | | MEDICAL | | | | | | CENTER - | | | | | | LABORATORY | | + + + + + + | Gram Stain | No squamous epithelial | | [facility] | | | Result | cells seen | | [facility] | | | | | | MEDICAL | | | | | | CENTER - | | | | | | LABORATORY | | + + + + + + | Gram Stain | 2+ Gram positive cocci | | [facility] | | | Result | | | [facility] | | | | | | MEDICAL | | | | | | CENTER - | | | | | | LABORATORY | | + + + + + + | Gram Stain | 2+ Gram positive bacilli | | [facility] | | | Result | | | [facility] | | | | | | MEDICAL | | | | | | CENTER - | | | | | | LABORATORY | | + + + + + + + + | Specimen | + + | Respiratory - | | Coughed sputum | | specimen (specimen) | + + + + + + + | Performing | Address | City/State/Zipcode | Phone Number | | Organization | | | | + + + + + | [facility] | [address] | [place] | [phone] | | [facility] | | [address] | | | - LABORATORY | | | | + + + + + Clostridium difficile A and B EIA (01/30/2016 6:49 AM PDT) + + + + + + | Component | Value | Ref Range | Performed | Pathologist | | | | | At | Signature | + + + + + + | Clostridium | Negative | Negative | [facility] | | | Diff | | | [facility] | | | | | | [facility]ICAL | | | | | | CENTER - | | | | | | LABORATORY | | + + + + + + | Clostridium | NegativeComment: | | [facility] | | | Difficile | Negative for toxigenic | | [facility] | | | [facility] | Clostridium difficile | | MEDICAL | | | | | | CENTER - | | | | | | LABORATORY | | + + + + + + + + | Specimen | + + | Stool - Stool | | specimen (specimen) | + + + + + + + | Performing | Address | City/State/Zipcode | Phone Number | | Organization | | | | + + + + + | [facility] | [address] | [place] | [phone] | | [facility] | | [address] | | | - LABORATORY | | | | + + + + + C-Reactive Protein (01/30/2016 1:33 AM PDT) + +-------+ + + + | Component | Value | Ref Range | Performed | Pathologist | | | | | At | Signature | + +-------+ + + + | CRP | 2.47 | <8.00 mg/L | [facility] | | | | | | [facility] | | | | | | MEDICAL | | | | | | CENTER - | | | | | | LABORATORY | | + +-------+ + + + + + | Specimen | + + | Blood | + + + + + + + | Performing | Address | City/State/Zipcode | Phone Number | | Organization | | | | + + + + + | [facility] | [address] | [place] | [phone] | | [facility] | | [address] | | | - LABORATORY | | | | + + + + + Sedimentation Rate (01/30/2016 1:33 AM PDT) + +-------+ + + + | Component | Value | Ref Range | Performed | Pathologist | | | | | At | Signature | + +-------+ + + + | ESR | 13 | <30 mm/hr | [facility] | | | | | | [facility] | | | | | | MEDICAL | | | | | | CENTER - | | | | | | LABORATORY | | + +-------+ + + + + + | Specimen | + + | Blood | + + + + + + + | Performing | Address | City/State/Zipcode | Phone Number | | Organization | | | | + + + + + | [facility] | [address] | [place] | [phone] | | [facility] | | [address] | | | - LABORATORY | | | | + + + + + Comprehensive Metabolic Panel (01/30/2016 1:33 AM PDT) + + + + + + | Component | Value | Ref Range | Performed | Pathologist | | | | | At | Signature | + + + + + + | Na | 135 (L) | 136 - 149 | [facility] | | | | | mmol/L | [facility] | | | | | | MEDICAL | | | | | | CENTER - | | | | | | LABORATORY | | + + + + + + | K | 3.5 | 3.5 - 5.1 | [facility] | | | | | mmol/L | [facility] | | | | | | MEDICAL | | | | | | CENTER - | | | | | | LABORATORY | | + + + + + + | Cl | 102 | 98 - 109 mmol/L | [facility] | | | | | | [facility] | | | | | | MEDICAL | | | | | | CENTER - | | | | | | LABORATORY | | + + + + + + | CO2 | 23 (L) | 24 - 31 mmol/L | [facility] | | | | | | [facility] | | | | | | MEDICAL | | | | | | CENTER - | | | | | | LABORATORY | | + + + + + + | Anion Gap | 10 | 3 - 16 mmol/L | [facility] | | | | | | [facility] | | | | | | MEDICAL | | | | | | CENTER - | | | | | | LABORATORY | | + + + + + + | Glucose | 87 | 70 - 109 mg/dL | [facility] | | | | | | [facility] | | | | | | MEDICAL | | | | | | CENTER - | | | | | | LABORATORY | | + + + + + + | BUN | 8 | 7 - 18 mg/dL | [facility] | | | | | | [facility] | | | | | | MEDICAL | | | | | | CENTER - | | | | | | LABORATORY | | + + + + + + | Creatinine | 0.68 | 0.60 - 1.30 | [facility] | | | | | mg/dL | [facility] | | | | | | MEDICAL | | | | | | CENTER - | | | | | | LABORATORY | | + + + + + + | eGFR if not | >60Comment: GLOMERULAR | >=60 | [facility] | | | | FILTRATION | mL/min/1.73m2 | [facility] | | | ZAMBIAN | RATE,ESTIMATED | | MEDICAL | | | | mL/min/1.95d9Sxdf than | | CENTER - | | | | 60 Chronic kidney | | LABORATORY | | | | disease,if found over a | | | | | | 3-month period.Less than | | | | | | 15 Kidney failureFor | | | | | | | | | | | | Americans,multiply the | | | | | | calculated GFR by 1.21. | | | | | | | | | | + + + + + + | Calcium | 8.4 | 8.3 - 10.5 | [facility] | | | | | mg/dL | [facility] | | | | | | MEDICAL | | | | | | CENTER - | | | | | | LABORATORY | | + + + + + + | Albumin | 2.7 (L) | 3.2 - 5.0 g/dL | [facility] | | | | | | [facility] | | | | | | MEDICAL | | | | | | CENTER - | | | | | | LABORATORY | | + + + + + + | Bilirubin | 0.5 | 0.1 - 1.5 mg/dL | [facility] | | | Total | | | [facility] | | | | | | MEDICAL | | | | | | CENTER - | | | | | | LABORATORY | | + + + + + + | Total | 4.9 (L) | 6.0 - 7.8 g/dL | [facility] | | | Protein | | | [facility] | | | | | | MEDICAL | | | | | | CENTER - | | | | | | LABORATORY | | + + + + + + | AST | 59 (H) | 10 - 42 U/L | [facility] | | | | | | [facility] | | | [facility] | | MEDICAL | | | | | | CENTER - | | | | | | LABORATORY | | + + + + + + | ALT | 31 | 6 - 45 U/L | [facility] | | | | | | [facility] | | | | | | MEDICAL | | | | | | CENTER - | | | | | | LABORATORY | | + + + + + + | Alkaline | 93 | 40 - 110 U/L | [facility] | | | Phosphatase | | | [facility] | | | | | | MEDICAL | | | | | | CENTER - | | | | | | LABORATORY | | + + + + + + | Globulin | 2.2 | 2.1 - 3.8 g/dL | [facility] | | | | | | [facility] | | | | | | MEDICAL | | | | | | CENTER - | | | | | | LABORATORY | | + + + + + + | Albumin/Reanna | 1.2 | 0.8 - 2.0 | [facility] | | | bulin Ratio | | | [facility] | | | | | | MEDICAL | | | | | | CENTER - | | | | | | LABORATORY | | + + + + + + | BUN/Creatin | 11.8 | | [facility] | | | ine Ratio | | | [facility] | | | | | | MEDICAL | | | | | | CENTER - | | | | | | LABORATORY | | + + + + + + + + | Specimen | + + | Blood | + + + + + + + | Performing | Address | City/State/Zipcode | Phone Number | | Organization | | | | + + + + + | [facility] | [address] | [place] | [phone] | | [facility] | | [address] | | | - LABORATORY | | | | + + + + + Troponin I (01/30/2016 1:33 AM PDT) + + + + + + | Component | Value | Ref Range | Performed | Pathologist | | | | | At | Signature | + + + + + + | Troponin I | 0.02Comment: Reference | <0.06 ng/mL | [facility] | | | | Ranges:0.00-0.06 = | | [facility] | | | | NORMAL>0.06 = | | MEDICAL | | | | SUSPICIOUS FOR | | CENTER - | | | | MYOCARDIAL DAMAGE NOTE: | | LABORATORY | | | | Values greater than 0.50 | | | | | | ng/mL have been shown | | | | | | to be strongly | | | | | | associated with acute | | | | | | myocardial infarction. | | | | | | [employer] | | | | | | Cardiology (ACC) | | | | | | recommends a decision | | | | | | limit of 0.06 ng/mL for | | | | | | this assay. Results | | | | | | greater than 0.06 can | | | | | | reflect a pre-infarct | | | | | | acute coronary syndrome, | | | | | | but can also reflect | | | | | | myocardial necrosis or | | | | | | injury that is not due | | | | | | to coronary artery | | | | | | disease. Some of these | | | | | | causes are sepsis, | | | | | | hypocolemia, atrial | | | | | | fibrillation, heart | | | | | | failure, pulmonary | | | | | | embolism, myocarditis, | | | | | | myocardial contusion, | | | | | | and renal failure. The | | | | | | diagnosis of myocardial | | | | | | infarction should be | | | | | | based on a combination | | | | | | of the patient's | | | | | | clinical presentation | | | | | | and the clinical | | | | | | laboratory test results | | | | | | (especially serial | | | | | | troponin levels). | | | | + + + + + + + + | Specimen | + + | Blood | + + + + + + + | Performing | Address | City/State/Zipcode | Phone Number | | Organization | | | | + + + + + | [facility] | [address] | [place] | [phone] | | [facility] | | [address] | | | - LABORATORY | | | | + + + + + CBC no Differential (01/30/2016 1:33 AM PDT) + + + + + + | Component | Value | Ref Range | Performed | Pathologist | | | | | At | Signature | + + + + + + | WBC | 2.3 (LL)Comment: | 4.0 - 11.0 K/uL | [facility] | | | | Critical Result called | | [facility] | | | | to and read back by | | MEDICAL | | | | Vivian Corrigan on | | CENTER - | | | | 01/30/2016 at 2:09 by | | LABORATORY | | | | Gaurav Beckman. | | | | + + + + + + | RBC | 4.08 | 3.70 - 5.20 | [facility] | | | | | M/uL | [facility] | | | | | | MEDICAL | | | | | | CENTER - | | | | | | LABORATORY | | + + + + + + | Hemoglobin | 11.6 | 11.5 - 16.0 | [facility] | | | | | g/dL | [facility] | | | | | | MEDICAL | | | | | | CENTER - | | | | | | LABORATORY | | + + + + + + | Hematocrit | 35.2 | 34.0 - 47.0 % | [facility] | | | | | | [facility] | | | | | | MEDICAL | | | | | | CENTER - | | | | | | LABORATORY | | + + + + + + | MCV | 86.2 | 83.0 - 101.0 fL | [facility] | | | | | | [facility] | | | | | | MEDICAL | | | | | | CENTER - | | | | | | LABORATORY | | + + + + + + | MCH | 28.4 | 28.0 - 35.0 pg | [facility] | | | | | | [facility] | | | | | | MEDICAL | | | | | | CENTER - | | | | | | LABORATORY | | + + + + + + | MCHC | 33.0 | 32.0 - 36.0 | [facility] | | | | | g/dL | [facility] | | | | | | MEDICAL | | | | | | CENTER - | | | | | | LABORATORY | | + + + + + + | RDW-CV | 15.6 (H) | <15.0 % | [facility] | | | | | | [facility] | | | | | | MEDICAL | | | | | | CENTER - | | | | | | LABORATORY | | + + + + + + | Platelet | 84 (L) | 140 - 440 K/uL | [facility] | | | Count | | | [facility] | | | | | | MEDICAL | | | | | | CENTER - | | | | | | LABORATORY | | + + + + + + | MPV | 8.0 | fL | [facility] | | | | | | [facility] | | | | | | MEDICAL | | | | | | CENTER - | | | | | | LABORATORY | | + + + + + + + + | Specimen | + + | Blood | + + + + + + + | Performing | Address | City/State/Zipcode | Phone Number | | Organization | | | | + + + + + | [facility] | [address] | [place] | [phone] | | [facility] | | [address] | | | - LABORATORY | | | | + + + + + B Type Natriuretic Peptide (01/30/2016 1:30 AM PDT) + +---------+ + + + | Component | Value | Ref Range | Performed | Pathologist | | | | | At | Signature | + +---------+ + + + | BNP | 157 (H) | <100 pg/mL | [facility] | | | | | | [facility] | | | | | | MEDICAL | | | | | | CENTER - | | | | | | LABORATORY | | + +---------+ + + + + + | Specimen | + + | Blood | + + + + + + + | Performing | Address | City/State/Zipcode | Phone Number | | Organization | | | | + + + + + | [facility] | [address] | [place], [place] | [phone] | | [facility] | | [address] | | | - LABORATORY | | | | + + + + + LVEF VALUE (01/30/2016) + +-------+ + + + | Component | Value | Ref Range | Performed | Pathologist | | | | | At | Signature | + +-------+ + + + | LVEF-TTE | 64 | | | | | TRANSTHORAC | | | | | | IC ECHO | | | | | + +-------+ + + + Culture, MRSA (01/29/2016 8:12 PM PDT) + + + + + + | Component | Value | Ref Range | Performed | Pathologist | | | | | At | Signature | + + + + + + | Culture | Negative for MRSA by | | [facility] | | | | chromogenic agar method | | [facility] | | | | | | MEDICAL | | | | | | CENTER - | | | | | | LABORATORY | | + + + + + + + + | Specimen | + + | Respiratory - Both | | anterior nares (body | | structure) | + + + + + + + | Performing | Address | City/State/Zipcode | Phone Number | | Organization | | | | + + + + + | [facility] | [address] | [place], [place] | [phone] | | [facility] | | [address] | | | - LABORATORY | | | | + + + + + CT Angiogram Pulmonary (01/29/2016 4:17 PM PDT) + + | Specimen | + + | | + + + + + | Narrative | Performed At | + + + | CT ANGIOGRAM PULMONARY . 01/29/2016 4:10 PM HISTORY: Evaluate | [facility] | | for pulmomary embolus COMPARISON: None available. | | | TECHNIQUE: Axial images were obtained from the base of the neck to the | | | upper abdomen following the uneventful intravenous administration of | | | 65 mL Omnipaque 350 contrast, with timing of the contrast bolus to | | | maximize opacification of the pulmonary arterial system. | | | Multiplanar reformatted images created. RADIATION DOSE: DLP 349 | | | mGy-cm FINDINGS: Contrast opacification of the pulmonary | | | arterial structures is optimized for the purposes of this study. | | | There is no evidence of filling defect or other abnormality of the | | | pulmonary arterial structures to suggest pulmonary embolism or | | | extrinsic compression. The main pulmonary artery is enlarged, | | | measuring 3.6 cm in diameter, suggestive of pulmonary arterial | | | hypertension. The nonenhanced aorta and branching vessels are | | | within normal limits. Evaluation of the systemic vasculature is | | | limited by early timing of the contrast bolus for the purposes of | | | this pulmonary angiographic study. Central venous line extending | | | from the left upper extremity terminates in the superior vena cava | | | near the confluence of the brachiocephalic veins. The heart is | | | within normal limits, without pericardial effusion. The structures | | | at the base of the neck are unremarkable. No pathologically enlarged | | | mediastinal lymph nodes are evident. There is a small hiatal | | | hernia. Esophagus is otherwise unremarkable in appearance. The | | | trachea is within normal limits. Mild scarring and/or atelectasis | | | is seen at the left lung base. Small air cyst is seen posteriorly | | | in the superior segment of the right lower lobe . Lungs are | | | otherwise clear, without pulmonary nodule or other finding of clinical | | | significance. No pleural effusion or pneumothorax is seen. | | | Other than the small hiatal hernia, the visualized upper abdominal | | | viscera are unremarkable. There is levoconvex curvature of the | | | thoracic spine. Sclerotic foci in the T11 vertebral body favors | | | bone islands. There is diffuse degenerative disc disease with | | | exaggeration of the thoracic kyphosis. There is the appearance of | | | osteopenia. No overt lytic or blastic lesions are seen. The muscles | | | and subcutaneous soft tissues are unremarkable. IMPRESSION - | | | No evidence of pulmonary embolism. Enlargement of the pulmonary | | | artery, as might be seen with pulmonary arterial hypertension. Small | | | hiatal hernia. Degenerative disc disease and spondylotic change, | | | with exaggeration of the thoracic kyphosis and appearance of | | | osteopenia. Comment: Preliminary results of this exam were | | | provided by the after-hours radiology service on completion of the | | | study and sent: 01/29/2016 4:37:00 PM Dictated and Signed by: Shayan Crain | | MD Any Electronically signed: 01/30/2016 1:48 PM | | + + + + + | Procedure Note | + + | John, Rad Results In - 01/30/2016 1:[address] ANGIOGRAM PULMONARY . 01/29/2016 | | 4:10 PM HISTORY: Evaluate for pulmomary embolus COMPARISON: None available. | | TECHNIQUE: Axial images were obtained from the base of the neck to the upperabdomen | | following the uneventful intravenous administration of 65 mL Ozpnyfrps198 contrast, with | | timing of the contrast bolus to maximize opacification of thepulmonary arterial system. | | Multiplanar reformatted images created.RADIATION DOSE: DLP 349 mGy-cmFINDINGS: | | Contrast opacification of the pulmonary arterial structures is optimized for thepurposes | | of this study.There is no evidence of filling defect or other abnormality of the | | pulmonaryarterial structures to suggest pulmonary embolism or extrinsic compression. | | Themain pulmonary artery is enlarged, measuring 3.6 cm in diameter, suggestive | | ofpulmonary arterial hypertension.The nonenhanced aorta and branching vessels are within | | normal limits. Evaluation of the systemic vasculature is limited by early timing of | | thecontrast bolus for the purposes of this pulmonary angiographic study. Centralvenous | | line extending from the left upper extremity terminates in the superiorvena cava near | | the confluence of the brachiocephalic veins.The heart is within normal limits, without | | pericardial effusion.The structures at the base of the neck are unremarkable.No | | pathologically enlarged mediastinal lymph nodes are evident.There is a small hiatal | | hernia. Esophagus is otherwise unremarkable inappearance.The trachea is within normal | | limits.Mild scarring and/or atelectasis is seen at the left lung base. Small air cystis | | seen posteriorly in the superior segment of the right lower lobe . Lungs areotherwise | | clear, without pulmonary nodule or other finding of clinicalsignificance.No pleural | | effusion or pneumothorax is seen.Other than the small hiatal hernia, the visualized | | upper abdominal viscera areunremarkable.There is levoconvex curvature of the thoracic | | spine. Sclerotic foci in the [id number] body favors bone islands. There is diffuse | | degenerative disc diseasewith exaggeration of the thoracic kyphosis. There is the | | appearance ofosteopenia. No overt lytic or blastic lesions are seen.The muscles and | | subcutaneous soft tissues are unremarkable. IMPRESSION - No evidence of pulmonary | | embolism.Enlargement of the pulmonary artery, as might be seen with pulmonary | | arterialhypertension.Small hiatal hernia.Degenerative disc disease and spondylotic | | change, with exaggeration of thethoracic kyphosis and appearance of osteopenia. Comment: | | Preliminary results of this exam were provided by the after-hoursradiology service on | | completion of the study and sent: 01/29/2016 4:37:00 PMDictated and Signed by: Shayan | | MD Any Electronically signed: 01/30/2016 1:48 PM | |The trachea is within normal limits. | | | |Mild scarring and/or atelectasis is seen at the left lung base. Small air cyst | |is seen posteriorly in the superior segment of the right lower lobe . Lungs are | |otherwise clear, without pulmonary nodule or other finding of clinical | |significance. | |No pleural effusion or pneumothorax is seen. | | | |Other than the small hiatal hernia, the visualized upper abdominal viscera are | |unremarkable. | |There is levoconvex curvature of the thoracic spine. Sclerotic foci in the T11 | |vertebral body favors bone islands. There is diffuse degenerative disc disease | |with exaggeration of the thoracic kyphosis. There is the appearance of | |osteopenia. No overt lytic or blastic lesions are seen. | |The muscles and subcutaneous soft tissues are unremarkable. | | | | | |IMPRESSION - | |No evidence of pulmonary embolism. | |Enlargement of the pulmonary artery, as might be seen with pulmonary arterial | |hypertension. | |Small hiatal hernia. | |Degenerative disc disease and spondylotic change, with exaggeration of the | |thoracic kyphosis and appearance of osteopenia. | | | | | | | |Comment: Preliminary results of this exam were provided by the after-hours | |radiology service on completion of the study and sent: 01/29/2016 4:37:00 PM | | | |Dictated and Signed by: Shayan Agarwal MD | | Electronically signed: 01/30/2016 1:48 PM | + + + +---------+ + + | Performing | Address | City/State/Zipcode | Phone Number | | Organization | | | | + +---------+ + + | [facility] | | | | + +---------+ + + Troponin I (01/29/2016 1:35 PM PDT) + + + + + + | Component | Value | Ref Range | Performed | Pathologist | | | | | At | Signature | + + + + + + | Troponin I | 0.02Comment: Reference | <0.06 ng/mL | [facility] | | | | Ranges:0.00-0.06 = | | [facility] | | | | NORMAL>0.06 = | | MEDICAL | | | | SUSPICIOUS FOR | | CENTER - | | | | MYOCARDIAL DAMAGE NOTE: | | LABORATORY | | | | Values greater than 0.50 | | | | | | ng/mL have been shown | | | | | | to be strongly | | | | | | associated with acute | | | | | | myocardial infarction. | | | | | | [employer] | | | | | | Cardiology (ACC) | | | | | | recommends a decision | | | | | | limit of 0.06 ng/mL for | | | | | | this assay. Results | | | | | | greater than 0.06 can | | | | | | reflect a pre-infarct | | | | | | acute coronary syndrome, | | | | | | but can also reflect | | | | | | myocardial necrosis or | | | | | | injury that is not due | | | | | | to coronary artery | | | | | | disease. Some of these | | | | | | causes are sepsis, | | | | | | hypocolemia, atrial | | | | | | fibrillation, heart | | | | | | failure, pulmonary | | | | | | embolism, myocarditis, | | | | | | myocardial contusion, | | | | | | and renal failure. The | | | | | | diagnosis of myocardial | | | | | | infarction should be | | | | | | based on a combination | | | | | | of the patient's | | | | | | clinical presentation | | | | | | and the clinical | | | | | | laboratory test results | | | | | | (especially serial | | | | | | troponin levels). | | | | + + + + + + + + | Specimen | + + | Blood | + + + + + + + | Performing | Address | City/State/Zipcode | Phone Number | | Organization | | | | + + + + + | [facility] | [address] | [place] | [phone] | | [facility] | | [address] | | | - LABORATORY | | | | + + + + + D-Dimer (01/29/2016 1:35 PM PDT) + + + + + + | Component | Value | Ref Range | Performed | Pathologist | | | | | At | Signature | + + + + + + | D-Dimer | 3.27 (H)Comment: This | <=0.50 ug/ml | [facility] | | | Quantitativ | quantitative D-Dimer | | [facility] | | | e | assay has been evaluated | | MEDICAL | | | | for screening for | | CENTER - | | | | venous thrombotic | | LABORATORY | | | | disease, and may be | | | | | | useful in ruling out, | | | | | | but not ruling in | | | | | | disease. Values less | | | | | | than 0.50 ug/mL FEU | | | | | | (Fibrinogen Equivalent | | | | | | Units) have a negative | | | | | | predictive value of | | | | | | approximately 95% for | | | | | | ruling out large | | | | | | pulmonary emboli or | | | | | | proximal deep vein | | | | | | thrombosis. Distal DVT | | | | | | are not excluded. An | | | | | | elevated D-dimer can be | | | | | | present in patients with | | | | | | liver disease, | | | | | | , eclampsia, | | | | | | heart disease and some | | | | | | cancers among other | | | | | | conditions. The presence | | | | | | of rheumatoid factor at | | | | | | a level >50 IU/mL may | | | | | | falsely elevate the | | | | | | determined D-dimer | | | | | | levels. | | | | + + + + + + + + | Specimen | + + | Blood | + + + + + + + | Performing | Address | City/State/Zipcode | Phone Number | | Organization | | | | + + + + + | [facility] | [address] | [place] | [phone] | | [facility] | | [address] | | | - LABORATORY | | | | + + + + + TSH (01/29/2016 1:35 PM PDT) + + + + + + | Component | Value | Ref Range | Performed | Pathologist | | | | | At | Signature | + + + + + + | TSH | 0.83Comment: All TSH | 0.34 - 5.60 | [facility] | | | | samples are screened | uIU/mL | [facility] | | | | using a 2nd Generation | | MEDICAL | | | | test, and are reflexed | | CENTER - | | | | to a 3rd Generation test | | LABORATORY | | | | if indicated. | | | | + + + + + + + + | Specimen | + + | Blood | + + + + + + + | Performing | Address | City/State/Zipcode | Phone Number | | Organization | | | | + + + + + | [facility] | [address] | [place] | [phone] | | [facility] | | [address] | | | - LABORATORY | | | | + + + + + documented in this encounter Visit Diagnoses + + | Diagnosis | + + | Ulcerative colitis without complications, unspecified location (HCC) | + + documented in this encounter
--- OUTSIDE RECORDS SUMMARY | ~2019-11-01 | XMS | Encounter Summary ---
Demographics + + + | Address | [address] | | | [place] [address] | + + + | Home Phone | | + + + | Preferred Language | Unknown | + + + | Marital Status | | + + + | Pentecostalism Affiliation | 1001 | + + + | Race | Unknown | + + + | Ethnic Group | Unknown | + + + Author + + + | Author | [facility] | | | and Christianana | + + + | Organization | [facility] | | | and [place] | [...] [place], [place] | | | | | [address] | | + + + + + Care Team Providers + +------+ + | Care Supervisor Roving Department Name | Role | Phone | + +------+ + | Maude Means MD | PCP | | + +------+ + Encounter Details +--------+ + + + + | Date | Type | Department | Care Team | Description | +--------+ + + + + | 09/04/ | Documentati | [facility] | Juanita Key | | | 2018 | on | [facility] | J, RN | | | | | [facility] [address] | | | | | | [address] | | | | | | [place] [address] | | | | | | [phone] | | | +--------+ + + + [...] [email or web address] have membership at the gym in [place]; I encouraged them to inquire re: the service s available to cancer patients and survivors at their gym and we discussed the benefits of a ctivity and continuing to exercise. 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 We discussed housing options for Yamilet in [place] during Radi ation Treatments either through the [facility] or [facility] and hotel and they were relieved to hear there is lodging support. I'll plan to introduce them to [facility] anticipating housing and /or transportation assistance when [...] [place] | | | | | | [id number] | | | | | | | | +--------+ + + + + documented as of this encounter Visit Diagnoses Not on filedocumented in this encounter"
--- OUTSIDE RECORDS SUMMARY | ~2019-11-01 | XMS | Encounter Summary ---
Demographics + + + | Address | [address] | | | [place] [address] | + + + | Home Phone | | + + + | Preferred Language | Unknown | + + + | Marital Status | | + + + | Quaker Affiliation | 1001 | + + + | Race | Unknown | + + + | Ethnic Group | Unknown | + + + Author + + + | Author | [facility] [place] | | | and Christianana | + + + | Organization | [facility] | | | and [place] | + + + | Address | Unknown | + + + | Phone | Unavailable | + + + Support + + + + + | Name | Relationship | Address | Phone | + + + + + | Bhavesh Hernandes | ECON | [address] | | | | | [place] | | | | | [address] | | + + + + + Care Team Providers + +------+ + | Care Diamond Expert Name | Role | Phone | + +------+ + | Puneet Donovan MD | PCP | | + +------+ + Encounter Details +--------+ + + + + | Date | Type | Department | Care Team | Description | +--------+ + + + + | 01/10/ | Orders Only | [facility] | Bhavesh Lomax MD | Back pain, | | 2018 | | NEUROSURGERY [address] | unspecified back | | | | [address] | [place] [address] | location, | | | | [place], [place] | [phone] | unspecified back | | | | [address] | | pain laterality, | | | | [phone] | | unspecified | | | | | | chronicity (Primary | | | | | | Dx) | +--------+ + + + + Social [...] [place]TH[place] | | | | | | [place], [place] | | | | | | [id number] | | | | | | | | +--------+ + + + + documented as of this encounter Results XR Scoliosis Entire Spine 6+ Views (12/31/2017 8:44 AM PDT) + + | Specimen | + + | | + + + + + | Narrative | Performed At | + + + | CLINICAL INFORMATION: back pain. COMPARISON: Lumbar spine | [facility] | | radiographs 07/10/2017 and thoracic and lumbar MRI 10/07/2017. | | | FINDINGS: AP and lateral views of the entire spine with AP and | | | lateral bending views. AP and lateral views of the lumbar spine | | | with lateral flexion and extension views. Mild rightward coronal | | | balance and mild anterior sagittal balance. There is 14 degrees | | | leftward curvature of the thoracic spine and 13 degrees rightward | | | curvature of the lower thoracic and lumbar spine. The lower thoracic | | | and lumbar spine curvature is persistent with bilateral bending; | | | however, the upper to mid thoracic curvature somewhat improved with | | | lateral bending. Prominent kyphosis and lordosis of the thoracic | | | and lumbar spine respectively. Mild retrolisthesis of L1 over L2, | | | L2 over L3, L3 over L4 and anterolisthesis of L4 over L5 and L5 over | | | S1. No evidence of abnormal translation with lateral flexion or | | | extension. Moderate diffuse degenerative and facet arthrosis | | | throughout the lumbar spine. Mild diffuse degenerative disease | | | throughout the thoracic spine. No significant vertebral body | | | height loss. Probable mild cardiomegaly. The lungs appear clear. | | | IMPRESSION - Upper mid thoracic spine leftward curvature | | | measuring 14 degrees and rightward lower thoracic and lumbar spine | | | rightward curvature measuring 13 degrees. Prominent kyphosis and | | | lordosis of the thoracic and lumbar spine respectively. Multilevel | | | listhesis throughout the lumbar spine without evidence of | | | instability. Diffuse degenerative changes of the spine. | | | Dictated and Signed by: Austyn Gutierres MD Electronically signed: | | | 12/31/2017 1:31 PM | | + + + + + | Procedure Note | + + | John, Rad Results In - 12/31/2017 1:34 PM PDT | | CLINICAL INFORMATION: back pain. | | | | COMPARISON: Lumbar spine radiographs 07/10/2017 and thoracic and lumbar MRI | | 10/07/2017. | | | | FINDINGS: | | AP and lateral views of the entire spine with AP and lateral bending views. AP | | and lateral views of the lumbar spine with lateral flexion and extension views. | | | | Mild rightward coronal balance and mild anterior sagittal balance. | | | | There is 14 degrees leftward curvature of the thoracic spine and 13 degrees | | rightward curvature of the lower thoracic and lumbar spine. The lower thoracic | | and lumbar spine curvature is persistent with bilateral bending; however, the | | upper to mid thoracic curvature somewhat improved with lateral bending. | | | | Prominent kyphosis and lordosis of the thoracic and lumbar spine respectively. | | | | Mild retrolisthesis of L1 over L2, L2 over L3, L3 over L4 and anterolisthesis of | | L4 over L5 and L5 over S1. No evidence of abnormal translation with lateral | | flexion or extension. | | | | Moderate diffuse degenerative and facet arthrosis throughout the lumbar spine. | | Mild diffuse degenerative disease throughout the thoracic spine. | | | | No significant vertebral body height loss. | | | | Probable mild cardiomegaly. The lungs appear clear. | | | | IMPRESSION - | | | | Upper mid thoracic spine leftward curvature measuring 14 degrees and rightward | | lower thoracic and lumbar spine rightward curvature measuring 13 degrees. | | | | Prominent kyphosis and lordosis of the thoracic and lumbar spine respectively. | | | | Multilevel listhesis throughout the lumbar spine without evidence of | | instability. | | | | Diffuse degenerative changes of the spine. | | | | Dictated and Signed by: Austyn Gutierres MD | | Electronically signed: 12/31/2017 1:31 PM | + + + +---------+ + + | Performing | Address | City/State/Zipcode | Phone Number | | Organization | | | | + +---------+ + + | [facility] | | | | + +---------+ + + documented in this encounter Visit Diagnoses + + | Diagnosis | + + | Back pain, unspecified back location, unspecified back pain laterality, unspecified | | chronicity - Primary | + + documented in this encounter"
--- OUTSIDE RECORDS SUMMARY | ~2019-11-01 | XMS | Encounter Summary ---
Demographics + + + | Address | [address] | | | [place] [address] | + + + | Home Phone | | + + + | Preferred Language | Unknown | + + + | Marital Status | | + + + | Buddhism Affiliation | 1001 | + + + | Race | Unknown | + + + | Ethnic Group | Unknown | + + + Author + + + | Author | [facility] [place] | | | and [place] | + + + | Organization | [facility] | | | and [place] [...] [place], [place] | | | | | [address] | | + + + + + Care Team Providers + +------+ + | Care Horologist Apprentice Name | Role | Phone | + +------+ + | Puneet Donovan MD | PCP | | + +------+ + Encounter Details +--------+ + + + + | Date | Type | Department | Care Team | Description | +--------+ + + + + | 12/18/ | Abstract | [facility] [place] | Bhavesh Lomax MD | | | 2018 | | NEUROSURGERY [address] | [address] | | | | | [address] | [place] [address] | | | | | [place] | [phone] | | | | | [address] | | | | | | [phone] | | | +--------+ + + + [...] [place] | | | | | | [id number] | | | | | | | | +--------+ + + + + documented as of this encounter Visit Diagnoses Not on filedocumented in this encounter"
--- OUTSIDE RECORDS SUMMARY | ~2019-11-01 | XMS | Encounter Summary ---
Demographics + + + | Address | [address] | | | [place] [address] | + + + | Home Phone | | + + + | Preferred Language | Unknown | + + + | Marital Status | | + + + | Catholic Affiliation | 1001 | + + + | Race | Unknown | + + + | Ethnic Group | Unknown | + + + Author + + + | Author | [facility] | | | and [place] | + + + | Organization | [facility] | | | and [place] [...] | [place] | | | | | [address] | | + + + + + Care Team Providers + +------+ + | Care Inbound Sales Consultant Name | Role | Phone | + [...] 2016 | | GASTROENTEROLOGY | [address] [place] | sig) | | | | [address] [place] | [address] [place], [place] | | | | | [address] [place], [place] | [address] | | | | | [address] | | | | | | [phone] | | | +--------+ + + + [...] [place] | | | | | | [address] | | | | | | | | +--------+ + + + + documented as of this encounter Visit Diagnoses Not on filedocumented in this encounter"
--- OUTSIDE RECORDS SUMMARY | ~2019-11-01 | XMS | Encounter Summary ---
Demographics + + + | Address | [address] | | | [place] [address] | + + + | Home Phone | | + + + | Preferred Language | Unknown | + + + | Marital Status | | + + + | Mormon Affiliation | 1001 | + + + | Race | Unknown | + + + | Ethnic Group | Unknown | + + + Author + + + | Author | [facility] | | | and [place] | + + + | Organization | [facility] | | | and [place] | [...] [place], [place] | | | | | [address] | | + + + + + Care Team Providers + +------+ + | Care Education Professor Name | Role | Phone | + +------+ + | Puneet Donovan MD | PCP | | + +------+ + Encounter Details +--------+ + + + + | Date | Type | Department | Care Team | Description | +--------+ + + + + | 10/11/ | Imaging | [facility] | Provider, | | | 2017 | Exam | [facility] | [address] | | | | | IMAGING | [place] [address] | | | | | [phone] | [place] [address] | | +--------+ + + + + [...] | | | | | | [facility] [place] | | | | | | [address] | | | | | | | | +--------+ + + + + documented as of this encounter Procedures + +--------+ + + + | Procedure Name | Priori | Date/Time | Associated Diagnosis | Comments | | | ty | | | | + +--------+ + + + | XR LUMBAR SPINE 4 + | Routin | 07/10/2017 | | Results for this | | VW | e | 11:50 AM | | procedure are in the | | | | PDT | | results section. | + +--------+ + + + documented in this encounter Results XR Lumbar Spine 4 + Vw (07/10/2017 11:50 AM PDT) + + | Specimen | + + | | + + + + + | Narrative | Performed At | + + + | External films | [facility] | | for comparison only - no result from [place]. | | + + + + +---------+ + + | Performing | Address | City/State/Zipcode | Phone Number | | Organization | | | | + +---------+ + + | [facility] | | | | + +---------+ + + documented in this encounter Visit Diagnoses Not on filedocumented in this encounter"
--- OUTSIDE RECORDS SUMMARY | ~2019-11-01 | XMS | Encounter Summary ---
Demographics + + + | Address | [address] | | | [place] [address] | + + + | Home Phone [...] + | Author | [facility] | | | and [place] | + + + | Organization | [facility] | | | and [...] [place], [place] | | | | | [address] | | + + + + + Care Team Providers + +------+ + | Care Children[facility]S Book Author Name | Role | Phone | + +------+ + | Puneet Donovan MD | PCP | | + +------+ + Reason for Referral Evaluate & Treat (Routine) +--------+--------+ + + + + | Status | Reason | Specialty | Diagnoses / | Referred By | Referred To | | | | | Procedures | Contact | Contact | +--------+--------+ + + + + | Closed | | Infusion | Diagnoses | Cramer, | [facility] | | | | Therapy | Discitis, | Richardson P, DO | Infusion [address] | | | | | unspecified | [address] | | | | | spinal | [address] | [place], | | | | | region | [id number] | [place] [address] | | | | | | [place], [place] | Phone: | | | | | | [address] | [phone] | | | | | | Phone: | Fax: | | | | | | [phone] | [phone] | | | | | | Fax: | | | | | | | [phone] | | +--------+--------+ + + + + Evaluate & Treat (Routine) +--------+ + + + + + | Status | Reason | Specialty | Diagnoses / | Referred By | Referred To | | | | | Procedures | Contact | Contact | +--------+ + + + + + | Closed | Specialty | Home Health | Diagnoses | Bela, | | | | Services | Services | Atrial | Richardson P, DO | | | | Required | | fibrillation | [address] | | | | | | with [facility] | [address] | | | | | | ([facility]) | [id number] | | | | | | Discitis, | [place], [place] | | | | | | unspecified | [address] | | | | | | spinal | Phone: | | | | | | region | [phone] | | | | | | Hyponatremia | Fax: | | | | | | Dysphagia, | [phone] | | | | | | unspecified | | | | | | | type Cough | | | | | | | | | | | | | | Leukopenia, | | | | | | | unspecified | | | | | | | type | | | | | | | Ulcerative | | | | | | | colitis | | | | | | | without | | | | | | | complication | | | | | | | s, | | | | | | | unspecified | | | | | | | location | | | | | | | ([facility]) | | | +--------+ + + + + + Reason for Visit Auth/Cert +--------+--------+ + [...] | | | | | | | ([facility]) | | | | | [...] | | | | | | | ([facility]) | | | | | [...] | +--------+ + + + + | 01/28/ | Hospital | [facility] | Orville Khalil | Atrial fibrillation | | 2016 - | Encounter | [facility] | MD Ken [address] | with [facility] ([facility]) | | | | [address] [place] | [address] [place] | (Primary Dx); | | 02/03/ | | [place] [address] | [place] [address] | Discitis, | | 2016 | | [phone] | [phone] | unspecified spinal | | | | | | region; | | | | | Vasquez, Rico H, | Hyponatremia; | | | | | MD [address] | Ulcerative colitis | | | | | [place], [place] | without | | | | | [address] | complications, | | | | | [phone] | unspecified | | | | | | ulcerative colitis; | | | | | | Dysphagia, | | | | | | unspecified type; | | | | | | Cough; Leukopenia, | | | | | | unspecified type; | | | | | | Rectal bleeding; | | | | | | Ulcerative colitis | | | | | | without | | | | | | complications, | | | | | | unspecified location | | | | | | (HCC); Ulcerative | | | | | | pancolitis without | | | | | | complication (HCC); | | | | | | 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 [facility] DISCHARGE SUMMARY Pt. Name/Age/: Yamilet Romo Greta 66 y.o. 1950 Date of Admission: 01/29/2016 [...] this - reasons to take this aka: DILAUDID Discontinued Medications cefTRIAXone 2 g/100 mL Soln aka: [facility] COURSE: Please refer to the H&P for [...] back pain, and was admi tted to [facility] on 01/03 and diagnosed with discitis, [...] muscle pain. In the emergency department at [facility], she was found to have atrial fibrillation [...] - 01/29: Discussed with Dr Hagan at [facility], who is covering Dr. Reddy's patients, recommen ded discussing leukopenia/thrombocytopenia with him today, continued ceftriaxone - 01/30: Discussed with Dr. Reddy at [facility], who recommended switching over to once daily Lev aquin IV to finish complete course of therapy with 02/14 being last day of therapy. Patient w ill need to f/u with Dr. Reddy's office in 1 week after discharge from the hospital. Today wa s 1st dose of Levaquin IV. Will need to juvenile counselor patient about risk of tendonitis, tendon [...] Schatzki's ring that was dilated with 48 Omani Vega dilator. There was gastroparesis minor antral [...] For hospital follow up Contact information: [address] [facility] [place] [address] Follow up with Brett Wing MD. Schedule an appointment as soon as possible for a visit in 2 weeks. Specialty: Gastroenterology Why: For follow up of your Ulcerative colitis Contact information: [address], [address] [place] [address] [phone] Follow up with Jorge Reddy DO. Schedule an appointment as soon as possible for a visit i n 1 week. Specialty: Internal Medicine Why: For follow up on your history and treatment of Diskitis Contact information: [address] [facility] [place] [id number] Condition: Patient being discharged with condition improved. Diet: Dental soft, fiber restricted, vegetarian, please make sure to drink plenty of liquid s to keep good oral fluid hydration up to 2 L of fluids per day. Greater than 30 minutes were spent on discharge and coordination of post-hospital care. Electronically signed by: Richardson Cramer DO, 02/04/2016 16:11 [facility] Portions of this chart may have been created with [employer] voice recognition software. Occasi onal wrong-word or [...] that are mashed or put through a security threat analyst. In a ddition, you may need to [...] Also, other treatments will likely be needed. [phone] [employer] [facility]. [address] [place] [address]. All righ ts reserved. This information is [...] or as directed by your healthcare provider [phone] [facility]. [address] [place] [address], [place] [address]. All [facility] ts reserved. This information is not intended [...] problem. Your doctor will assess your partic ular case and discuss choices with you. Treatment [...] tea, cola, and other beverages with caffeine ry7yzpp pe r day. Talkwith your doctor about whether you should eliminate caffeine. Avoid uhec-ggw-imiqcgz medicines that have caffeine in them. Let your doctor know what medicines you take, including prescription and gwqm-zkg-zjuzjw r medicines, as well as any supplements. [...] your heartbeat, or an unusually fast heartbeat [phone] [facility]. [address] [place], [place] [address]. All righ ts reserved. This information is [...] fibrillation that are new or getting worse [employer]. [address] [place] [address]. All righ ts reserved. This information is [...] spasms, cramping, or twitching Seizures Gait disturbances [employer]. [address] [place] [address]. All righ ts reserved. This information is [...] your health care provider. He or she eve n teach you what to do if [...] the healthiest foods can make symptoms worse, thoug h. Keeping track of your problem foods [...] Yourhealth care providermay have you see a plugger to come up with the best food choices for you. A plugger can help ensure that you eat foods marichuy t are safe while getting proper nourishment. Foods that are often safe No two people respond the same to all foods. But these choices are often safe to eat during a flare-up: Applesauce Dyer toast Flavored gelatin Vanilla pudding Custard White rice Plain pasta Canned peaches or pears Baked potatoes Tuna packed in water Mashedpotatoes Skinless chicken Instant oatmeal [phone] [employer] [facility]. [address] [place] [address]. All righ ts reserved. 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 AttachmentsThe following attachments cannot be sent through Care Everywhere.ESOPHAGEAL DILA TION (CHILEAN)DYSPHAGIA, TREATING (CHILEAN)DYSPHAGIA, UNDERSTANDING (CHILEAN)LEVOFLOXACIN OR AL TABLET (CHILEAN)documented in this encounter Medications at Time of [...] documented as of this encounter Progress Notes Brett Wing MD - 02/03/2016 2:26 PM PDTThe patient's [...] discussion on Saturday Dr. Wells of the [facility] is personnel and payroll technician over the weekend and will not see the patient unless requested Tim House RN - 02/03/2016 11:40 AM PDTMetopro lol total 200 mg po given. Ambulated around the hallway using walker. HR 103-110's. A.Fib.El ectronically signed by Tim Ruiz RN at 02/03/2016 11:41 AM Richardson Brand DO - 02/03/2016 9:29 AM PDT [facility] PROGRESS NOTE Patient: Yamilet Hernandes : 1950: Age: 66 y.o. MedRec: [id number] PCP: Puneet Donovan Admission date: 01/29/2016 Hospital [...] 0629 lactated ringers (LR) infusion Intravenous Continuous Tiam Romo MD Stopped at 01/31/16 1700 levofloxacin in dextrose (LEVAQUIN) IVPB 750 mg 750 mg Intravenous Daily Richardson spain DO 100 mL/hr at 02/03/16 0840 750 mg at 02/03/16 0840 metoclopramide (REGLAN) 5 mg/mL injection 10 mg 10 mg Intravenous Q6H PRN Rico shirley MD 10 mg at 01/30/16 1721 metoprolol succinate (TOPROL-XL) ER tablet 150 mg 150 mg Oral Daily Richardson Cramer DO 150 mg at 02/03/16 0837 nitroglycerin [...] 1700) Objective Data Labs Recent Labs Lab 02/03/1641902/02/16 1153 02/01/1645701/31/16 0741 WBC 3.5* 3.7* 2.4* 2.3* HGB 12.6 12.7 11.7 11.9 HCT 38.1 38.8 35.3 35.4 PLT 180 181 110* 114* NEUPCT -- 60.5 51.1 55.7 MONPCT -- 9.2 11.6 10.4 No results for input(s): PROTIME, INR in the last 168 hours. No results for input(s): PTT in the last 168 hours. Recent Labs Lab 02/03/1641902/02/1652702/01/1645701/30/16 0133 GLU 94 99 89 < > [...] 01/30/16 0130 BNP 157* Recent Labs Lab 02/03/1641902/02/1652702/01/16 1032 MG 2.0 2.0 1.6* No results for input(s): PHOS in the last 168 hours. No results for input(s): AMYLASE, LIPASE in the last 168 hours. No results for input(s): AMMONIA in the last 168 hours. No results for input(s): TROPONINI, CK, CKMB in the last 168 hours. Invalid input(s): CKTOTAL No results for input(s): PHART, PO2ART, AAH9SGZ, DOS3IHV, BEART, W2YWSMLT in the last 168 h ours. No results for input(s): SPECSOURCE, PHPOCB, HCO3, TCO2, BEART, BE, PGNR9GFJ in the last 16 8 hours. Invalid input(s): SSKEU0OA, FYNS9AS ECHOCARDIOGRAM REPORT STUDY DATE: 01/30/2016 CLINICAL HISTORY/DIAGNOSIS: [...] Schatzki's ring that was dilated with 48 Omani Vega dilator. There was gastroparesis minor antral [...] up today. No acute events overnight. On cardiac monitor technician yesterday patient has remained well controlled in [...] - 01/29: Discussed with Dr Hagan at [facility], who is covering Dr. Reddy's patients, recommen ded discussing leukopenia/thrombocytopenia with him today, continued ceftriaxone - 01/30: Discussed with Dr. Reddy at [facility], who recommended switching over to once daily Lev aquin IV to finish complete course of therapy with 02/14 being last day of therapy. Patient w ill need to f/u with Dr. Reddy's office in 1 week after discharge from the hospital. Today wa s 1st dose of Levaquin IV. Will need to juvenile counselor patient about risk of tendonitis, tendon [...] 30 minutes. Richardson Cramer DO 02/03/2016 9:29 [facility] Portions of this chart may have been created with [employer] voice recognition software. Occasi onal wrong-word or sound-alike substitutions may have occurred due to the inherent jack itations of voice recognition software. Please read the chart carefully and recognize, using context, where these substitutions have occurred ela, Richardson March DO - 02/02/2016 11:46 AM PDT [facility] PROGRESS NOTE Patient: Yamilet Hernandes : 1950: Age: 66 y.o. MedRec: [id number] PCP: Puneet Donovna Admission date: 01/29/2016 Hospital day # : [...] Daily Richardson spain DO 100 mL/hr at 02/02/16 0907 750 mg at 02/02/16 0907 metoclopramide (REGLAN) 5 mg/mL injection 10 mg 10 mg Intravenous Q6H PRN Rico shirley MD 10 mg at 01/30/16 1721 metoprolol succinate (TOPROL-XL) ER tablet 100 mg 100 mg Oral Daily Richardson Cramer DO 100 mg at 02/02/16 0907 nitroglycerin [...] 1700) Objective Data Labs Recent Labs Lab 02/01/1645701/31/1674001/30/16132 WBC 2.4* 2.3* 2.3* HGB 11.7 11.9 11.6 HCT 35.3 35.4 35.2 PLT 110* 114* 84* NEUPCT 51.1 55.7 -- MONPCT 11.6 10.4 -- No results for input(s): PROTIME, INR in the last 168 hours. No results for input(s): PTT in the last 168 hours. Recent Labs Lab 02/02/1652702/01/1645701/31/1641 01/30/16132 GLU 99 89 92 87 NA 136 [...] 01/30/16 0130 BNP 157* Recent Labs Lab 02/02/1652702/01/16 1032 MG 2.0 1.6* No results for input(s): PHOS in the last 168 hours. No results for input(s): AMYLASE, LIPASE in the last 168 hours. No results for input(s): AMMONIA in the last 168 hours. No results for input(s): TROPONINI, CK, CKMB in the last 168 hours. Invalid input(s): CKTOTAL No results for input(s): PHART, PO2ART, MYK8SIO, HWQ0CON, BEART, H1HCSQIS in the last 168 h ours. No results for input(s): SPECSOURCE, PHPOCB, HCO3, TCO2, BEART, BE, GUHE2KJH in the last 16 8 hours. Invalid input(s): ZVAMV9RO, GJMY8CE ECHOCARDIOGRAM REPORT STUDY DATE: 01/30/2016 CLINICAL HISTORY/DIAGNOSIS: [...] Schatzki's ring that was dilated with 48 Omani Vega dilator. There was gastroparesis minor antral [...] up today. No acute events overnight. On cardiac monitor technician since yesterday patient has remained well controlled [...] - 01/29: Discussed with Dr Hagan at [facility], who is covering Dr. Reddy's patients, recommen ded discussing leukopenia/thrombocytopenia with him today, continued ceftriaxone - 01/30: Discussed with Dr. Reddy at [facility], who recommended switching over to once daily Lev aquin IV to finish complete course of therapy with 02/14 being last day of therapy. Patient w ill need to f/u with Dr. Reddy's office in 1 week after discharge from the hospital. Today wa s 1st dose of Levaquin IV. Will need to juvenile counselor patient about risk of tendonitis, tendon [...] 30 minutes. Richardson Cramer DO 02/02/2016 11:46 [facility] Portions of this chart may have been created with [employer] voice recognition software. Occasi onal wrong-word or [...] Richardson Brand DO - 9:40 AM PDT [facility] PROGRESS NOTE Patient: Yamilet Hernandes : 1950: Age: 66 y.o. MedRec: [id number] PCP: Puneet Donovan Admission date: 01/29/2016 Hospital [...] 5 mg 5 mg Oral BID Richardson Cramer, DO 5 mg at 02/01/16 0 837 [...] Daily Richardson spain, DO 100 mL/hr at 02/01/16 0837 750 [...] CKTOTAL No results for input(s): PHART, PO2ART, OWS4MTO, YVY6YPS, BEART, L4NPCUSO in the last 168 h ours. No results for input(s): SPECSOURCE, PHPOCB, HCO3, TCO2, BEART, BE, BPOD0YVC in the last 16 8 hours. Invalid input(s): MQWUX5QD, PAIC1KN ECHOCARDIOGRAM REPORT STUDY DATE: 01/30/2016 CLINICAL HISTORY/DIAGNOSIS: [...] Schatzki's ring that was dilated with 48 Omani Vega dilator. There was gastroparesis minor antral [...] up today. No acute events overnight. On cardiac monitor technician since this morning around 7 AM patient's [...] - 01/29: Discussed with Dr Hagan at [facility], who is covering Dr. Reddy's patients, recommen ded discussing leukopenia/thrombocytopenia with him today, continued ceftriaxone - 01/30: Discussed with Dr. Reddy at [facility], who recommended switching over to once daily Lev aquin IV to finish complete course of therapy with 02/14 being last day of therapy. Patient w ill need to f/u with Dr. Reddy's office in 1 week after discharge from the hospital. Today wa s 1st dose of Levaquin IV. Will need to juvenile counselor patient about risk of tendonitis, tendon [...] above) was 30 minutes. Richardson Cramer DO 02/01/2016 9:40 [facility] Portions of this chart may have been created with [employer] voice recognition software. Occasi onal wrong-word or [...] 100 mg 1st dose now per James harding Remi's recommendations. Still waiting for Mg level and will replace if less than 2.Elect ronically signed by Richardson Cramer DO at 02/03/2016 9:32 AM Richardson Brand DO - 0 01/31/2016 2:42 PM PDT [facility] PROGRESS NOTE Patient: Yamilet Hernandes : 1950: Age: 66 y.o. MedRec: [id number] PCP: Puneet Donovan Admission date: 01/29/2016 Hospital [...] 10 mg 10 mg Intravenous Q6H PRN iRco shirley MD 10 mg at 01/30/16 1721 [...] CKTOTAL No results for input(s): PHART, PO2ART, CJH9DNJ, TEA7QNG, BEART, Y0XEQOLQ in the last 168 h ours. No results for input(s): SPECSOURCE, PHPOCB, HCO3, TCO2, BEART, BE, WSOD3UIM in the last 16 8 hours. Invalid input(s): YBCLT3OT, IHIF1NS ECHOCARDIOGRAM REPORT STUDY DATE: 01/30/2016 CLINICAL HISTORY/DIAGNOSIS: [...] Schatzki's ring that was dilated with 48 Omani Vega dilator. There was gastroparesis minor antral [...] colonoscopy. No acute e vents overnight. On cardiac monitor technician patient remains in low 100s to 110s, [...] - 01/29: Discussed with Dr Hagan at [facility], who is covering Dr. Reddy's patients, recommen ded discussing leukopenia/thrombocytopenia with him today, continued ceftriaxone - 01/30: Discussed with Dr. Reddy at [facility], who recommended switching over to once daily Lev aquin IV to finish complete course of therapy with 02/14 being last day of therapy. Patient w ill need to f/u with Dr. Reddy's office in 1 week after discharge from the hospital. Today wa s 1st dose of Levaquin IV. Will need to juvenile counselor patient about risk of tendonitis, tendon [...] 30 minutes. Richardson Cramer DO 01/31/2016 14:42 [facility] Portions of this chart may have been created with [employer] voice recognition software. Occasi onal wrong-word or [...] Orville Khalil MD at 01/31/2016 9:31 AM Rico Lynch MD - 01/30/2016 8:58 AM PDT [facility] Hospitalist Progress Note Yamilet Hernandes [...] oz) Intake/Output Summary (Last 24 hours) at 01/30/16911 Last data filed at 01/30/16 08 Gross per 24 hour Intake 1168.6 ml [...] This is a preliminary report provided by [employer] JORDYN Costa. A final report is available at [facility]. CT ANGIOGR AM CHEST (PULMONARY) CLINICAL [...] improved - Discussed with Dr Hagan at [facility], who is covering Dr. Reddy's patients, [...] as outlined above. Rico Vasquez 01/30/2016 9:12 [facility] Portions of this chart may have been created with [employer] voice recognition software. Occasi onal wrong-word or sound-alike substitutions may have occurred due to the inherent jack itations of voice recognition software. Please read the chart carefully and recognize, using context, where these substitutions have occurred erry, Orville Rogers MD - 01/30/2016 8:44 AM PDT PATIENT NAME: Yamilet Hernandes : 1950: AGE: 66 y.o. ADMISSION DATE: 01/29/2016 HOSPITAL DAY NUMBER: 1 PRIMARY CARE: Puneet oDnovan CONSULTING PROVIDER: Orville Khalil MD CARDIOLOGY PROGRESS [...] was made to ensure accuracy, however, inadvertent computer compositor errors may be present . Electronically signed by: Orville Khalil MD 01/30/2016 8:45 documented in this encounter Plan of Treatment +--------+ + + + + | Date | Type | Specialty | Care Team | Description | +--------+ + + + + | 06/24/ | Appointment | Radiation Oncology | Jojo Henry | | | 2019 | | | MD [address]ruly [address] | | | | | | [place], [place] | | | | | | [address] | | | | | | | [...] | | | | | | [facility] ([facility]) Discitis, | | | | [...] | | | (HCC) | | + + +--------+ + + | AMB REFERRAL TO [facility] | Outpatient | Routin | Discitis, | [...] + | CULTURE, STOOL | Routin | 02/03/2016 | | [...] 1.9 | 1.8 - 2.5 mg/dL | [facility] [...] [address] | [place] | [phone] | | [facility] | | [address] | | | - LABORATORY | | [...] | 0.91 | 0.60 - 1.30 | [facility] | | | mg/dL | [facility] | [facility] | | [facility] | | | | | | C[facility] - | | | | | | LABORATORY | | + + + + + + | eGFR if not | >60Comment: GLOMERULAR | >=60 | [facility] | | | | FILTRATION | mL/min/1.73m2 | [facility] | | | [place] | RATE,ESTIMATED | | MEDICAL | | | | mL/min/1.56u8Eeff than | | CENTER - | | [...] | | | | mg/dL | [facility] | | | | [...] [address] | [place] | [phone] | | [facility] | | [address] | | | - LABORATORY | | | | + + + + + CBC with Differential (02/04/2016 8:51 AM PDT) + + + + + + | Component | Value | Ref Range | Performed | Pathologist | | | | | At | Signature | + + + + + + | WBC | 4.9 | 4.0 - 11.0 K/uL | [facility] | | | | | [facility] | | | | | | MEDICAL | | | | | | CENTER - | | | | | | LABORATORY | | + + + + + + | RBC | 4.67 | 3.70 - 5.20 | [facility] | | | | | M/uL | [facility] | | | | | [...] + | [facility] | [address] | [place] | [phone] | | [facility] | | [address] | | | - LABORATORY | | [...] | | | Aeromonas, Plesiomonas, | | [facility] | | | | E. coli [...] [address] | [place] | [phone] | | [facility] | | [address] | | | - LABORATORY | | [...] + | [facility] | [address] | [place] | [phone] | | [facility] | | [address] | | | - LABORATORY | | [...] | 0.83 | 0.60 - 1.30 | [facility] | | | | | mg/dL | [facility] | | | | | | MEDICAL | | | | | | CENTER - | | | | | | LABORATORY | | + + + + + + | eGFR if not | >60Comment: GLOMERULAR | >=60 | [facility] | | | | FILTRATION | mL/min/1.73m2 | [facility] | | | [place] | RATE,ESTIMATED | | MEDICAL | | | | mL/min/1.10g9Degi than | | CENTER - | | [...] + | [facility] | [address] | [place] | [phone] | | [facility] | | [address] | | | - LABORATORY | | [...] | | | | | g/dL | [facility] | | | | [...] | MPV | 8.1 | fL | [facility] | | | [...] + | [facility] | [address] | [place] | [phone] | | [facility] | | [address] | | | - LABORATORY | | [...] (L) | 4.0 - 11.0 K/uL | [facility] | | | | | [...] ST. | [address] | [place] | [phone] | | [facility] | | [address] | | | - LABORATORY | | [...] ST. | [address] | [place], [place] | [phone] | | [facility] | | [address] | | | - LABORATORY | | [...] | 0.80 | 0.60 - 1.30 | [facility] | | | | | mg/dL | [facility] | | | | | | MEDICAL | | | | | | CENTER - | | | | | | LABORATORY | | + + + + + + | eGFR if not | >60Comment: GLOMERULAR | >=60 | [facility] | | | | FILTRATION | mL/min/1.73m2 | [facility] | | | [place] | RATE,ESTIMATED | | MEDICAL | | | | mL/min/1.57j8Hwsh than | | CENTER - | | [...] + | [facility] | [address] | [place] | [phone] | | [facility] | | [address] | | | - LABORATORY | | [...] [address] | [place] | [phone] | | [facility] | | [address] | | | - LABORATORY | | [...] | | | | | g/dL | [facility] | | | | [...] + | [facility] | [address] | [place] | [phone] | | [facility] | | [address] | | | - LABORATORY | | [...] | 0.73 | 0.60 - 1.30 | [facility] | | | | | mg/dL | [facility] | | | | | | MEDICAL | | | | | | CENTER - | | | | | | LABORATORY | | + + + + + + | eGFR if not | >60Comment: GLOMERULAR | >=60 | [facility] | | | | FILTRATION | mL/min/1.73m2 | [facility] | | | [place] | RATE,ESTIMATED | | MEDICAL | | | | mL/min/1.61t9Vawz than | | CENTER - | | [...] | | | | mg/dL | [facility] | | | | | | MEDICAL | | | | | | CENTER - | | | | | | LABORATORY | | + + + + + + | BUN/Creatin | 6.8 | | [facility] | | | ine Ratio | | | [facility] | | | [...] ST. | [address] | [place] | [phone] | | [facility] | | [address] | | | - LABORATORY | | | | + + + + + Alvaro Conley (01/31/2016 2:29 PM PDT) + + + + + + | Component | Value | Ref Range | Performed | Pathologist | | | | | At | Signature | + + + + + + | Campylobact | Negative | Negative | [facility] | | | er AG, Qual | | | [facility] | [...] + | [facility] | [address] | [place] | [phone] | | [facility] | | [address] | | | - LABORATORY | | [...] | | | 1 | | | [facility] | | | | | | MEDICAL | | | | | | CENTER - | | | | | | LABORATORY | | + + + + + + | Shigatoxin | Negative | Negative | [facility] | | | 2 | | | [facility] | | [...] ST. | [address] | [place] | [phone] | | [facility] | | [address] | | | - LABORATORY | | [...] [address] | [place] | [phone] | | [facility] | | [address] | | | - LABORATORY | | [...] | | , Qual | | | [facility] | | | | | | MEDICAL [...] [address] | [place] | [phone] | | [facility] | | [address] | | | - LABORATORY | | [...] | | Diff | | | [facility] | | | | | | MEDICAL | | | | | | CENTER - | | | | | | LABORATORY | | + + + + + + | Clostridium | NegativeComment: | | [facility] | | | Difficile | Negative for toxigenic | | [facility] | | | GDH Antigen | Clostridium [...] | + + + + + | [facility] | [address] | [place] | [phone] | | [facility] | | [address] | | | - LABORATORY | | [...] | | | | | | | [id number] | | | | | | Source [...] | LAB PAML | | | | 02/01/2016Comment: | | | | | | Testing Performed: | | | | | | [facility] | | | | | | [facility], [address] | | | | | | [address] [place] [address] | | | | + + + [...] [address] | [place] [address] | [phone] | + + + + + Cryptosporidium [...] + | [facility] | [address] | [place] | [phone] | | [facility] | | [address] | | | - LABORATORY | | [...] [address] | [place] | [phone] | | [facility] | | [address] | | | - LABORATORY | | [...] + | [facility] | [address] | [place] | [phone] | | [facility] | | [address] | | | - LABORATORY | | | | + + + + + EGD (01/31/2016 1:01 PM PDT) + + | Specimen | + + | | + + + + -+ | Narrative | Performed At | + + -+ | | [facility] | | GastroenterologyPatient Name: Yamilet RickettsyProcedure Date: 01/31/2016 | [facility] | | 1:01 PMMRN: [id number] #: [id number] of : | | | 1Admit Type: InpatientAge: 66Room: [facility] 01Gender: FemaleNote | | | Status: FinalizedAttending MD: Brett Wing [facility] | | | Upper GI endoscopyIndications: Esophageal dysphagia, | | | Weight lossProviders: Brett Wing MD, Leanna Chandler | | | SHO Domínguez, Suzette Trujillo, | | | Mogul Operator, Tima Romo MD (Anesthesia Staff)Medicines: | | [...] physician, the nurse, the anesthesiologist and the cnc maintenance technician | | | in the endoscopy [...] PMScope Out: 1:13:55 PM | | | [facility], [address], [place] | | | [address] | | |Recommendation: | | | - [...] |Scope Out: 1:13:55 PM | | | [facility], [address] [facility], [place], [place] | | | [address] | | + + -+ + +---------+ [...] 01/31/2016 | [facility] | | 1:01 PMMRN: [id number] #: [id number] of : | | | 1950dmit Type: InpatientAge: Room: [facility] 01Gender: FemaleNote | | | Status: FinalizedAttending MD: Brett Wing, [facility]cedure: | | | ColonoscopyIndications: Clinically significant diarrhea of | | | unexplained origin, Hematochezia, | | | Personal history of ulcerative colitisProviders: Brett St | | | MD [place], Leanna Domínguez RN, Suzette | | | Caitlyn Trujillo, Mogul Operator, Tima Romo MD (Anesthesia | | | [...] the anesthesiologist and | | | the cnc maintenance technician in the endoscopy suite. Mental Status [...] PMScope Out: | | | 1:27:[address] [facility], [address] [facility], | | | [place] [address] | | | - Continue present medications. [...] |Scope Out: 1:27:59 PM | | | [facility], [address] [facility], [place] | | | [address] | | + + -+ + +---------+ [...] (H) | 0.6 - 1.1 ng/dL | [facility] | | | | | [...] | + + + + + | [facility] | [address] | [place] | [phone] | | [facility] | | [address] | | | - LABORATORY | | [...] K/uL | [facility] | | | | Consistent with previous [...] | | | | | g/dL | [facility] | | | | [...] + | [facility] | [address] | [place], [place] | [phone] | | [facility] | | [address] | | | - LABORATORY | | [...] | | | | | mmol/L | [facility] | | | | | [...] not | >60Comment: GLOMERULAR | >=60 | [facility] | | | | FILTRATION | mL/min/1.73m2 | [facility] | | | [place] | RATE,ESTIMATED | | MEDICAL | | | | mL/min/1.40l1Msqz than | | CENTER - | | [...] ST. | [address] | [place], [place] | [phone] | | [facility] | | [address] | | | - LABORATORY | | | | + + + + + Surgical Pathology Exam (01/31/2016 12:00 AM PDT) + + | Specimen | + + | | + + + + + | Narrative | Performed At | + + + | SPECIMEN(S): A DESCENDING COLON BIOPSY SPECIMEN SOURCE: [facility] [place] [facility] | | DESCENDING COLON BIOPSY CLINICAL [...] | | | bowel disease (ulcerative colitis). JVR:[facility]:C2NR GROSS | | | DESCRIPTION: The specimen is labeled "Yamilet Hernandes" and | | | designated "descending colon bx" on the requisition. Received in | | | formalin are seven pink-dukes colored tissue fragments, 0.15-0.6 cm, all | | | into (A1). yt:JVR:[facility] PERFORMING LABORATORY: Tissue processing | | | and slide preparation were performed by [employer], [facility] [address] | | | [facility], [address], [place] [address] (Blocking Machine Operator: Monty | | | Rosy Cruz CLIA#: [id number]). Professional interpretation was | | | performed by [employer], [facility] | | | Branch, [address], [place] [address] (Blocking Machine Operator: | | | Monty Cruz M.D.; CLIA#: [id number]). Diagnostician: Monty | | | Renetta Cruz [...] Performed At | + + + | [facility] ECHOCARDIOGRAM REPORT | | | STUDY [...] | | Signed by: Angelita Khalil MD [facility] 01/30/2016 10:54 | | | User Experience Researcher: Landon Masters, RDCS, RDMS, RVT | | [...] | | | Thyroxine | | | [facility] | | | Index | | | [...] [address] | [place] | [phone] | | [facility] | | [address] | | | - LABORATORY | | [...] | | | | Tatianna | | [facility] | | | | | | MEDICAL | | | | | | CENTER - | | | | | | LABORATORY | | + + + + + + | Gram Stain | 2+ White Blood Cells | | [facility] | | | Result | | | [facility] | | | | | | MEDICAL | | | | | | CENTER - | | | | | | LABORATORY | | + + + + + + | Gram Stain | No squamous epithelial | | [facility] | | | Result | cells seen | | [facility] | | | [...] + | [facility] | [address] | [place], [place] | [phone] | | [facility] | | [address] | | | - LABORATORY | | [...] | | Diff | | | [facility] | | | | | | MEDICAL | | | | | | CENTER - | | | | | | LABORATORY | | + + + + + + | Clostridium | NegativeComment: | | [facility] | | | Difficile | Negative for toxigenic | | [facility] | | | GDH Antigen | Clostridium [...] + | [facility] | [address] | [place] | [phone] | | [facility] | | [address] | | | - LABORATORY | | [...] ST. | [address] | [place], [place] | [phone] | | [facility] | | [address] | | | - LABORATORY | | | | + + + + + Sedimentation Rate (01/30/2016 1:33 AM PDT) + +-------+ + + + | Component | Value | Ref Range | Performed | Pathologist | | | | | At | Signature | + +-------+ + + + | ESR | 13 | <30 mm/hr | [facility] | | | | | [...] [address] | [place] | [phone] | | [facility] | | [address] | | | - LABORATORY | | [...] 8 | 7 - 18 mg/dL | [facility] | | | | | | [facility] | | | | | | MEDICAL | | | | | | CENTER - | | | | | | LABORATORY | | + + + + + + | Creatinine | 0.68 | 0.60 - 1.30 | [facility] | | | | | mg/dL | [facility] | | | | | | MEDICAL | | | | | | CENTER - | | | | | | LABORATORY | | + + + + + + | eGFR if not | >60Comment: GLOMERULAR | >=60 | [facility] | | | | FILTRATION | mL/min/1.73m2 | [facility] | | | [place] | RATE,ESTIMATED | | MEDICAL | | | | mL/min/1.18o0Ctin than | | CENTER - | | [...] | 8.4 | 8.3 - 10.5 | [facility] | | | | | mg/dL | [facility] | | | | | | MEDICAL | | | | | | CENTER - | | | | | | LABORATORY | | + + + + + + | Albumin | 2.7 (L) | 3.2 - 5.0 g/dL | [facility] | | | | [...] + + + + + | [facility] | [address] | [place] | [phone] | | [facility] | | [address] | | | - LABORATORY | | [...] | | | | | | [employer] | | | | | [...] ST. | [address] | [place], [place] | [phone] | | [facility] | | [address] | | | - LABORATORY | | [...] K/uL | [facility] | | | | Critical Result called | | [facility] | | | | to and read [...] | | | | | M/uL | [facility] | | | | | [...] ST. | [address] | [place], [place] | [phone] | | [facility] | | [address] | | | - LABORATORY | | [...] + | [facility] | [address] | [place] | [phone] | | [facility] | | [address] | | | - LABORATORY | | [...] | chromogenic agar method | | [facility] | | | [...] [address] | [place] | [phone] | | [facility] | | [address] | | | - LABORATORY | | [...] the uneventful intravenous administration of 65 mL [id number] contrast, with | | timing of the [...] | | spine. Sclerotic foci in the [id number] body favors bone islands. There is diffuse [...] | | | | | | [employer] | | | | | [...] [address] | [place] | [phone] | | [facility] | | [address] | | | - LABORATORY | | | | + + + + + D-Dimer (01/29/2016 1:35 PM PDT) + + + + + + | Component | Value | Ref Range | Performed | Pathologist | | | | | At | Signature | + + + + + + | D-Dimer | 3.27 (H)Comment: This | <=0.50 ug/ml | [facility] | | | Quantitativ | quantitative D-Dimer [...] + + + + + | [facility]. | [address] | [place] | [phone] | | [facility] | | [address] | | | - LABORATORY | | [...] | samples are screened | uIU/mL | [facility] | | | | using a 2nd [...] + | [facility] | [address] | [place] | [phone] | | [facility] | | [address] | | | - LABORATORY | | | | + + + + + documented in this encounter Visit Diagnoses + + | Diagnosis | + + | Atrial fibrillation with RVR ([facility]) - Primary Atrial fibrillation | + + | Discitis, unspecified spinal region | + + | Hyponatremia Hyposmolality and/or hyponatremia | + + | Ulcerative colitis without complications, unspecified location (HCC) | + + | Dysphagia, unspecified type | + + | Cough | + + | Leukopenia, unspecified type | + + | Rectal bleeding Hemorrhage of rectum and anus | + + | Ulcerative pancolitis without complication (HCC) | + + | Schatzki's ring of distal esophagus | + + documented in this encounter Administered Medications + +--------+ +------+------+------+ | Medication Order | MAR | Action | Dose | Rate | Site | | | Action | Date | | | | + +--------+ +------+------+------+ | apixaban (ELIQUIS) tablet 5 mg | Given | 01/30/20 | 5 mg | | | | 5 mg, Oral, 2 TIMES DAILY, First | | 16 8:08 | | | | | dose on 01/29/16 at 1430 | | AM PDT | | | | + +--------+ +------+------+------+ +-------+ +------+---+---+ | Given | 01/29/20 | 5 mg | | | | | 16 8:19 | | | | | | PM PDT | | | | +-------+ +------+---+---+ | Given | 01/29/20 | 5 mg | | | | | 16 2:30 | | | | | | PM PDT | | | | +-------+ +------+---+---+ +---+---+ | | | +---+---+ + +-------+ +------+---+---+ | apixaban (ELIQUIS) tablet 5 mg | Given | 02/04/20 | 5 mg | | | | 5 mg, Oral, 2 TIMES DAILY, First | | 16 5:02 | | | | | dose on Sat02/01/16 at 0900 | | PM PDT | | | | + +-------+ +------+---+---+ +-------+ +------+---+---+ | Given | 02/04/20 | 5 mg | | | | | 16 8:31 | | | | | | AM PDT | | | | +-------+ +------+---+---+ | Given | 02/03/20 | 5 mg | | | | | 16 8:54 | | | | | | PM PDT | | | | +-------+ +------+---+---+ +---+---+ | | | +---+---+ + +-------+ +---------+---+---+ | carvedilol (COREG) tablet 6.25 | Given | 02/01/20 | 6.25 mg | | | | mg 6.25 mg, Oral, 2 TIMES DAILY | | 16 8:38 | | | | | WITH BREAKFAST & DINNER, First | | AM PDT | | | | | dose on 01/29/16 at 1700, Hold | | | | | | | for SBP<100 or HR<50, | | | | | | + +-------+ +---------+---+---+ +-------+ +---------+---+---+ | Given | 01/31/20 | 6.25 mg | | | | | 16 4:33 | | | | | | PM PDT | | | | +-------+ +---------+---+---+ | Given | 01/31/20 | 6.25 mg | | | | | 16 8:24 | | | | | | AM PDT | | | | +-------+ +---------+---+---+ +---+---+ | | | +---+---+ + +---------+ +-----+-------+---+ | cefTRIAXone (ROCEPHIN) 2 g in | New Bag | 01/30/20 | 2 g | 100 | | | sodium chloride 0.9% 50 mL IVPB | | 16 3:13 | | mL/hr | | | 2 g, Intravenous, Administer over | | PM PDT | | | | | 30 Minutes, DAILY AFTERNOON, | | | | | | | First dose on 01/29/16 at | | | | | | | 1415, Activate system and mix | | | | | | | before use., Indications: | | | | | | | Discitis | | | | | | + +---------+ +-----+-------+---+ +---------+ +-----+-------+---+ | New Bag | 01/29/20 | 2 g | 100 | | | | 16 2:28 | | mL/hr | | | | PM PDT | | | | +---------+ +-----+-------+---+ +---+---+ | | | +---+---+ + +---------+ +---------+---------+---+ | diltiazem (CARDIZEM) 1 mg/mL in | New Bag | 01/30/20 | 5 mg/hr | 5 mL/hr | | | sodium chloride 0.9% 125 mL | | 16 4:09 | | | | | infusion 5-15 mg/hr (5-15 | | AM PDT | | | | | mL/hr), at 5-15 mL/hr, | | | | | | | Intravenous, TITRATED, Starting | | | | | | | 01/29/16 at 1345 | | | | | | + +---------+ +---------+---------+---+ + + +---------+---------+---+ | Rate/Dose Change | 01/29/20 | 2.5 | 2.5 | | | | 16 11:45 | mg/hr | mL/hr | | | | PM PDT | | | | + + +---------+---------+---+ | Rate/Dose Verify | 01/29/20 | 5 mg/hr | 5 mL/hr | | | | 16 8:20 | | | | | | PM PDT | | | | + + +---------+---------+---+ +---+---+ | | | +---+---+ + +-------+ +---------+---+---+ | diltiazem (CARDIZEM) injection | Given | 01/29/20 | 20.5 mg | | | | 20.5 mg 20.5 mg (rounded from | | 16 1:42 | | | | | 20.55 mg = 0.25 mg/kg | | PM PDT | | | | | 82.2 kg), Intravenous, ONCE, Sun | | | | | | | 01/29/16 at 1345, For 1 dose, | | | | | | | Keep in refrigerator., | | | | | | + +-------+ +---------+---+---+ +---+---+ | | | +---+---+ + +-------+ +-------+---+---+ | famotidine (PEPCID) tablet 20 | Given | 02/04/20 | 20 mg | | | | mg 20 mg, Oral, 2 TIMES DAILY, | | 16 5:02 | | | | | First dose on 01/30/16 at 0915 | | PM PDT | | | | + +-------+ +-------+---+---+ +-------+ +-------+---+---+ | Given | 02/04/20 | 20 mg | | | | | 16 8:31 | | | | | | AM PDT | | | | +-------+ +-------+---+---+ | Given | 02/03/20 | 20 mg | | | | | 16 8:54 | | | | | | PM PDT | | | | +-------+ +-------+---+---+ +---+---+ | | | +---+---+ + +-------+ +------+---+---+ | HYDROmorphone (DILAUDID) tablet | Given | 02/04/20 | 2 mg | | | | 2-4 mg 2-4 mg, Oral, EVERY 3 | | 16 5:41 | | | | | HOURS PRN, Pain, First option, | | AM PDT | | | | | Starting 01/29/16 at 1338 | | | | | | + +-------+ +------+---+---+ +-------+ +------+---+---+ | Given | 02/03/20 | 2 mg | | | | | 16 8:55 | | | | | | PM PDT | | | | +-------+ +------+---+---+ | Given | 02/03/20 | 2 mg | | | | | 16 4:16 | | | | | | PM PDT | | | | +-------+ +------+---+---+ +---+---+ | | | +---+---+ + +-------+ +--------+---+---+ | iohexol (OMNIPAQUE 350) 350 | Given | 01/29/20 | 65 mLs | | | | mg/mL injection 65 mL 65 mL, | | 16 4:17 | | | | | Intravenous, ONCE PRN, Other, | | PM PDT | | | | | Starting 01/29/16 at 1617, For | | | | | | | 1 dose, Cat Scanner | | | | | | + +-------+ +--------+---+---+ +---+---+ | | | +---+---+ + +---------+ +---+ +---+ | lactated ringers (LR) infusion | New Bag | 01/31/20 | | 10 mL/hr | | | at 10-100 mL/hr, Intravenous, | | 16 12:33 | | | | | CONTINUOUS, Starting Sat01/31/16 | | PM PDT | | | | | at 0800, TKO., | | | | | | + +---------+ +---+ +---+ +---+---+ | | | +---+---+ + +---------+ +--------+-------+---+ | levofloxacin in dextrose | New Bag | 02/04/20 | 750 mg | 100 | | | (LEVAQUIN) IVPB 750 mg 750 mg, | | 16 8:32 | | mL/hr | | | Intravenous, Administer over 90 | | AM PDT | | | | | Minutes, DAILY, First dose on Sat | | | | | | | 01/31/16 at 1600, Indications: | | | | | | | Discitis | | | | | | + +---------+ +--------+-------+---+ +---------+ +--------+-------+---+ | New Bag | 02/03/20 | 750 mg | 100 | | | | 16 8:40 | | mL/hr | | | | AM PDT | | | | +---------+ +--------+-------+---+ | New Bag | 02/02/20 | 750 mg | 100 | | | | 16 9:07 | | mL/hr | | | | AM PDT | | | | +---------+ +--------+-------+---+ +---+---+ | | | +---+---+ + +-------+ +--------+---+---+ | magnesium oxide (MAG-OX) tablet | Given | 02/04/20 | 400 mg | | | | 400 mg 400 mg, Oral, DAILY, | | 16 4:30 | | | | | First dose on 02/04/16 at 1600 | | PM PDT | | | | + +-------+ +--------+---+---+ +---+---+ | | | +---+---+ + +---------+ +-----+ +---+ | magnesium sulfate 2 g/50 mL | New Bag | 01/29/20 | 2 g | 25 mL/hr | | | IVPB 2 g 2 g, Intravenous, | | 16 1:43 | | | | | Administer over 120 Minutes, | | PM PDT | | | | | ONCE, [place] 01/29/16 at 1400, For 1 | | | | | | | dose, Maximum recommended | | | | | | | infusion rate = 1 gram/hour., | | | | | | + +---------+ +-----+ +---+ +---+---+ | | | +---+---+ + +---------+ +-----+ +---+ | magnesium sulfate 2 g/50 mL | New Bag | 02/01/20 | 2 g | 25 mL/hr | | | IVPB 2 g 2 g, Intravenous, | | 16 9:01 | | | | | Administer over 120 Minutes, | | PM PDT | | | | | ONCE, [facility] 02/01/16 at 2015, For 1 | | | | | | | dose, Infuse over 2 hours., | | | | | | + +---------+ +-----+ +---+ +---+---+ | | | +---+---+ + +-------+ +-------+---+---+ | metoclopramide (REGLAN) 5 mg/mL | Given | 01/30/20 | 10 mg | | | | injection 10 mg 10 mg, | | 16 5:21 | | | | | Intravenous, EVERY 6 HOURS PRN, | | PM PDT | | | | | Nausea, Vomiting, Starting Mon | | | | | | | 01/30/16 at 1616, Protect from | | | | | | | light., | | | | | | + +-------+ +-------+---+---+ +-------+ +-------+---+---+ | Given | 01/30/20 | 10 mg | | | | | 16 5:20 | | | | | | PM PDT | | | | +-------+ +-------+---+---+ +---+---+ | | | +---+---+ + +-------+ +--------+---+---+ | metoprolol succinate | Given | 02/02/20 | 100 mg | | | | (TOPROL-XL) ER tablet 100 mg 100 | | 16 9:07 | | | | | mg, Oral, DAILY, First dose on | | AM PDT | | | | | 02/01/16 at 1045, Tablet may | | | | | | | be cut where scored but do not | | | | | | | crush., | | | | | | + +-------+ +--------+---+---+ +-------+ +--------+---+---+ | Given | 02/01/20 | 100 mg | | | | | 16 10:59 | | | | | | AM PDT | | | | +-------+ +--------+---+---+ +---+---+ | | | +---+---+ + +-------+ +--------+---+---+ | metoprolol succinate | Given | 02/04/20 | 150 mg | | | | (TOPROL-XL) ER tablet 150 mg 150 | | 16 8:30 | | | | | mg, Oral, DAILY, First dose | | AM PDT | | | | | (after last modification) on Fri | | | | | | | 02/03/16 at 0900, Tablet may be | | | | | | | cut where scored but do not | | | | | | | crush., | | | | | | + +-------+ +--------+---+---+ +-------+ +--------+---+---+ | Given | 02/03/20 | 150 mg | | | | | 16 8:37 | | | | | | AM PDT | | | | +-------+ +--------+---+---+ +---+---+ | | | +---+---+ + +-------+ +-------+---+---+ | metoprolol succinate | Given | 02/02/20 | 50 mg | | | | (TOPROL-XL) ER tablet 50 mg 50 | | 16 5:21 | | | | | mg, Oral, ONCE, [facility] 02/02/16 at | | PM PDT | | | | | 1730, For 1 dose, Tablet may be | | | | | | | cut where scored but do not | | | | | | | crush., | | | | | | + +-------+ +-------+---+---+ +---+---+ | | | +---+---+ + +-------+ +-------+---+---+ | metoprolol succinate | Given | 02/03/20 | 50 mg | | | | (TOPROL-XL) ER tablet 50 mg 50 | | 16 9:56 | | | | | mg, Oral, ONCE, 02/03/16 at | | AM PDT | | | | | 1000, For 1 dose, Tablet may be | | | | | | | cut where scored but do not | | | | | | | crush., | | | | | | + +-------+ +-------+---+---+ +---+---+ | | | +---+---+ + +-------+ +------+---+---+ | ondansetron (ZOFRAN) injection | Given | 01/30/20 | 4 mg | | | | 4 mg 4 mg, Intravenous, EVERY 4 | | 16 4:33 | | | | | HOURS PRN, Nausea, Vomiting, | | PM PDT | | | | | Starting 01/30/16 at 1615 | | | | | | + +-------+ +------+---+---+ +---+---+ | | | +---+---+ + +-------+ +--------+---+---+ | polyethylene glycol (GOLYTELY) | Given | 01/30/20 | 4,000 | | | | suspension 4,000 mL 4,000 mL, | | 16 3:14 | mLs | | | | Oral, ONCE, Sat01/30/16 at 1600, | | PM PDT | | | | | For 1 dose, Give 240 mL every 10 | | | | | | | minutes until the ordered volume | | | | | | | is consumed or the rectal | | | | | | | effluent is clear., | | | | | | + +-------+ +--------+---+---+ +---+---+ | | | +---+---+ + +-------+ +--------+---+---+ | potassium chloride (K-DUR) ER | Given | 02/04/20 | 20 mEq | | | | tablet 20 mEq 20 mEq, Oral, | | 16 8:31 | | | | | DAILY WITH BREAKFAST, First dose | | AM PDT | | | | | on Sat01/30/16 at 0830 | | | | | | + +-------+ +--------+---+---+ +-------+ +--------+---+---+ | Given | 02/03/20 | 20 mEq | | | | | 16 8:37 | | | | | | AM PDT | | | | +-------+ +--------+---+---+ | Given | 02/02/20 | 20 mEq | | | | | 16 9:06 | | | | | | AM PDT | | | | +-------+ +--------+---+---+ +---+---+ | | | +---+---+ + +------+ +--------+-------+---+ | sodium chloride 0.9% (NS) bolus | Push | 01/29/20 | 35 mLs | 2100 | | | 35 mL 35 mL, Intravenous, | | 16 4:17 | | mL/hr | | | Administer over 1 Minutes, ONCE | | PM PDT | | | | | PRN, for contrast study, Starting | | | | | | | 01/29/16 at 1617, For 1 dose, | | | | | | | May infuse at a different rate | | | | | | | per protocol., Cat Scanner | | | | | | + +------+ +--------+-------+---+ +---+---+ | | | +---+---+ documented in this encounter
--- OUTSIDE RECORDS SUMMARY | ~2019-11-01 | XMS | Encounter Summary ---
Demographics + + + | Address | [address] | | | [place] [address] | + + + | Home Phone | | + + + | Preferred Language | Unknown | + + + | Marital Status | | + + + | Yazidi Affiliation | [id number] | + + + | Race | Unknown | + + + | Ethnic Group | Unknown | + + + Author + + + | Author | [facility] | | | and [place] | + + + | Organization | [facility] | | | and [...] [place], [place] | | | | | [address] | | + + + + + Care Team Providers + +------+ + | Care Concrete Batching Plant Operator Name | Role | Phone | + [...] Kenny ARNOLD | | | | | [phone] | [place] [id number] | | +--------+ + + + + [...] | | | | | | [address] [place], [place] | | | | | | [address] | | | | | | | [...] + + documented in this encounter Results [facility] Tomosynthesis Diagnostic Right (07/15/2018 8:30 AM PDT) [...]
--- OUTSIDE RECORDS SUMMARY | ~2019-11-01 | XMS | Encounter Summary ---
Demographics + + + | Address | [address] | | | [place] [address] | + + + | Home Phone | | + + + | Preferred Language | Unknown | + + + | Marital Status | | + + + | Tenriism Affiliation | 1001 | + + + | Race | Unknown | + + + | Ethnic Group | Unknown | + + + Author + + + | Author | [facility] | | | and Christianana | + + + | Organization | [facility] | | | and Christianana [...] [place] | | | | | [address] | | + + + + + Care Team Providers + +------+ + | Care Financial Services Education Consultant Name | Role | Phone | + +------+ + PCP | Unavailable | + +------+ + Encounter Details +--------+ + + + + | Date | Type | Department | Care Team | Description | +--------+ + + + + | 01/16/ | [facility] | [facility] | Brett Wing MD | | | 1993 | Encounter | MED CTR MP INTRA OP | [address] | | | | | [address] | [address] [place] | | | | | [place] | [address] | | | | | [address] | | | | | | [phone] | | | +--------+ + + + [...] [place] | | | | | | [address] | | | | | | | | +--------+ + + + + documented as of this encounter Visit Diagnoses Not on filedocumented in this encounter"
--- OUTSIDE RECORDS SUMMARY | ~2019-11-01 | XMS | Encounter Summary ---
Demographics + + + | Address | [address] | | | [place] [address] | + + + | Home Phone [...] + | Author | [facility] | | | and Christianana | + + + | Organization | [facility] | | | and Christianana [...] [place], [place] | | | | | [address] | | + + + + + Care Team Providers + +------+ + | Care Flare Stitcher Name | Role | Phone | + [...] Kenny ARNOLD | | | | | [phone] | [place] [address] | | +--------+ + + + + [...] | | | | | | [place], [place] | | | | | | [address] | | | | | | | [...]
--- OUTSIDE RECORDS SUMMARY | ~2019-11-01 | XMS | Encounter Summary ---
Demographics + + + | Address | [address] | | | [place] [address] | + + + | Home Phone | | + + + | Preferred Language | Unknown | + + + | Marital Status | | + + + | Mosque Affiliation | 1001 | + + + | Race | Unknown | + + + | Ethnic Group | Unknown | + + + Author + + + | Author | [facility] | | | and Christianana | + + + | Organization | [facility] | | | and Christianana [...] [place], [place] | | | | | [address] | | + + + + + Care Team Providers + +------+ + | Care Rotary Saw Operator Name | Role | Phone | + +------+ + PCP | Unavailable | + +------+ + Encounter Details +--------+ + + + + | Date | Type | Department | Care Team | Description | +--------+ + + + + | 05/19/ | [facility] | [facility] | Brett Wing MD | | | 1997 | Encounter | MED CTR GENERIC OP | [address] | | | | | CONV DEPT [address] | [address] | | | | | [place], | [address] | | | | | [place] [address] | | | | | | [phone] | | | +--------+ + + + [...] [place] | | | | | | [address] | | | | | | | | +--------+ + + + + documented as of this encounter Visit Diagnoses Not on filedocumented in this encounter"
--- OUTSIDE RECORDS SUMMARY | ~2019-11-01 | XMS | Encounter Summary ---
Demographics + + + | Address | [address] | | | [place] [address] | + + + | Home Phone [...] + | Author | [facility] | | | and Christianana | + + + | Organization | [facility] | | | and Christianana | + + + | Address | Unknown | + + + | Phone | Unavailable | + + + Support + + + + + | Name | Relationship | Address | Phone | + + + + + | Bhvaesh Hernandes | ECON | [address] | | | | | [place] | | | | | [address] | | + + + + + Care Team Providers + +------+ + | Care Grades 1 6 Tutor Name | Role | Phone | + +------+ + | Maude Means MD | PCP | | + +------+ + Reason for Visit + + + | Reason | Comments | + + + | Under Treatment | | + + + Encounter Details +--------+ + + + + | Date | Type | Department | Care Team | Description | +--------+ + + + + | 10/23/ | Hospital | [facility] | Jojo Henry | Malignant neoplasm | | 2019 | Encounter | MED CTR RADIATION | MD Jessica [address] | of upper-outer | | | | ONCOLOGY CLINIC [address] | [place], [place] | quadrant of right | | | | [address] | [address] | breast in female, | | | | [place] [address] | | estrogen receptor | | | | [phone] | | positive (HCC) | | | | | | (Primary Dx) | +--------+ + + + + [...] + + + | Blood Pressure | 135/72 | 10/23/2018 10:40 AM | | | | | PST | | + + + + + | Pulse | 71 | 10/23/2018 10:40 AM | | | | | PST | | + + + + + | Temperature | 36.1 C (97 F) | 10/23/2018 10:40 AM | | | | | PST | | + + + + + | Respiratory Rate | 18 | 10/23/2018 10:40 AM | | | | | PST | | + + + + + | Oxygen Saturation | 98% | 10/23/2018 10:40 AM | | | | | PST | | + + + + + | Inhaled Oxygen | - | - | | | Concentration | | | | + + + + + | Weight | 98.8 kg (217 lb 13 | 10/23/2018 10:40 AM | | | | oz) | PST | | + + + + + | Height | - | - | | + + + + + | Body Mass Index | 35.85 | 09/03/2018 12:49 PM | | | [...] documented as of this encounter Progress Notes Jojo Henry MD - 10/23/2018 10:46 AM PST Radiation Oncology Weekly On Treatment Note Diagnosis: ICD-10-CM ICD-9-CM 1. Malignant neoplasm of upper-outer quadrant of right breast in female, estrogen receptor positive (HCC) C50.411 174.4 Z17.0 V86.0 Reason for visit: On treatment evaluation Radiation technical factors: Dose Delivered Dose Planned Fractions Delivered 2670 cGy 4005 cGy 08/04 Images were reviewed this week and results of the review have been recorded in [facility]. Corre ctions were applied as necessary. Allergies Allergen Reactions Penicillins Rash Shellfish Rash Sulfa Antibiotics Rash Aspirin History of colitis Azathioprine Nausea And Vomiting Azithromycin Nausea And Vomiting Celecoxib Codeine Nausea And Vomiting Erythromycin Nausea And Vomiting Gabapentin Hydrocodone Nausea And Vomiting Ibuprofen Meloxicam Mesalamine Orphenadrine Oxycodone Nausea And Vomiting Fish Oil Rash Aka Glucosamine Current Outpatient Prescriptions on File Prior to Encounter Medication Sig Dispense Refill acetaminophen (TYLENOL) 325 mg tablet Take 650 mg by mouth every 4 hours as needed for Pain. alendronate (FOSAMAX) 70 mg tablet Take 70 mg by mouth every 7 days. apixaban (ELIQUIS) 5 mg tablet Take 1 tablet by mouth 2 times daily. 60 tablet 1 Ilecijz-Gdaajoixapxkl-Qxtqabkj (EXCEDRIN PO) Take 250 mg by mouth as needed. Calcium Citrate (CITRACAL PO) Take 500 mg by mouth 2 times daily. loratadine (CLARITIN) 10 mg tablet Take 10 mg by mouth. magnesium oxide (MAG-OX) 400 mg tablet Take 1 tablet by mouth Daily. 30 tablet 1 metoprolol succinate (TOPROL-XL) 50 mg 24 hr tablet Take 3 tablets by mouth Daily. (Pat ient taking differently: Take 50 mg by mouth Daily.) 90 tablet 1 potassium chloride (K-DUR) 20 mEq ER tablet Take 1 tablet by mouth daily (with breakfas t). 60 tablet 1 raNITIdine (ZANTAC) 150 mg tablet Take 150 mg by mouth nightly. No current facility-administered medications on file prior to encounter. 10/23/18 1044 General Disorders and Administration Site Conditions Fatigue 1 - Grade 1 Respiratory Thoracic and Mediastinal Cough 1 - Grade 1 ("mild due to sinus drainage") Dyspnea 0 - Grade 0 Skin and Subcutaneous Tissue Palmar-Plantar Erythrodysesthesia Syndrome 0 - Grade 0 Performance Status Karnofsky Performance Score 80% Pain assessment: Location: Lower back Pain Level: PAIN PROG PAIN LEVEL: 2 Pain Quality: Aching Current pain regimen: acetaminophen Wt Readings from Last 3 Encounters: 10/23/18 98.8 kg (217 lb 13 oz) 10/16/18 99.3 kg (218 lb 14.7 oz) 10/09/18 98.1 kg (216 lb 4.3 oz) Vitals: 10/23/18 1040 BP: 135/72 Pulse: 71 Resp: 18 Temp: 36.1 C (97 F) TempSrc: Temporal SpO2: 98% Weight: 98.8 kg (217 lb 13 oz) Physical Exam Constitutional: She appears well-developed and well-nourished. Neurological: She is alert. Skin: No rash noted. No erythema. Psychiatric: She has a normal mood and affect. Physician Assessment: Yamilet has competed 2 weeks of hypo-fractionated whole breast radiation. She is tolerati ng therapy quite well. Notes mild fatigue. No significant skin changes have developed. Matthew garvey continues to use emollient lotion faithfully. Toxicities reviewed in nursing note. Disposition: Continue radiation treatment as planned. Jojo Henry MD Radiation Oncologist documented in this encounter Plan of Treatment +--------+ + + + + | Date | Type | Specialty | Care Team | Description | +--------+ + + + + | 06/24/ | Appointment | Radiation Oncology | Jojo Henry | | | 2019 | | | MD [address] | | | | | | [place], [place] | | | | | | [address] | | | | | | | | +--------+ + + + + documented as of this encounter Visit Diagnoses + + | Diagnosis | + + | Malignant neoplasm of upper-outer quadrant of right breast in female, estrogen | | receptor positive (HCC) - Primary | + + documented in this encounter
--- OUTSIDE RECORDS SUMMARY | ~2019-11-01 | XMS | Encounter Summary ---
Demographics + + + | Address | [address] | | | [place] [address] | + + + | Home Phone | | + + + | Preferred Language | Unknown | + + + | Marital Status | | + + + | Amish Affiliation | 1001 | + + + | Race | Unknown | + + + | Ethnic Group | Unknown | + + + Author + + + | Author | [facility] | | | and Christianana | + + + | Organization | [facility] | | [...] [place], [place] | | | | | [address] | | + + + + + Care Team Providers + +------+ + | Care Crop Grain Or Livestock Farm Manager Name | Role | Phone | + +------+ + | Maude Means MD | PCP | | + +------+ + Encounter Details +--------+ + + + + | Date | Type | Department | Care Team | Description | +--------+ + + + + | 02/05/ | Orders Only | [facility] | Conversion | | | 2015 | | INFECTIOUS DISEASE | Transaction, | | | | | [address] | Provider Unknown | | | | | [facility] | [phone] | | | | | [address] | | | | | | [phone] | | | +--------+ + + + [...] | | | | | | [place], [place] | | | | | | [address] | | | | | | | [...]
--- OUTSIDE RECORDS SUMMARY | ~2019-11-01 | XMS | Encounter Summary ---
Demographics + + + | Address | [address] | | | [place] [address] | + + + | Home Phone | | + + + | Preferred Language | Unknown | + + + | Marital Status | | + + + | Mandaeism Affiliation | 1001 | + + + | Race | Unknown | + + + | Ethnic Group | Unknown | + + + Author + + + | Author | [facility] | | | and Christianana | + + + | Organization | [facility] | | | and [...] [place] | | | | | [address] | | + + + + + Care Team Providers + +------+ + | Care Certified Alcohol Counselor Name | Role | Phone | + +------+ + | Maude Means MD | PCP | | + +------+ + Encounter Details +--------+ + + + + | Date | Type | Department | Care Team | Description | +--------+ + + + + | 09/03/ | Hospital | [facility] | Jojo Henry | | | 2018 | Encounter | MED CTR RADIATION | M, MD [address] | | | | | ONCOLOGY [address] | [place], [place] | | | | | [place], | [address] | | | | | [place] [address] | | | | | | [phone] | | | +--------+ + + + [...] [place] | | | | | | [address] | | | | | | | | +--------+ + + + + documented as of this encounter Procedures + +--------+ + + + | Procedure Name | Priori | Date/Time | Associated Diagnosis | Comments | | | ty | | | | + +--------+ + + + | PATHOLOGY - EXTERNAL | | 08/05/2018 | | Results for this | | SCAN | | 12:00 AM | | procedure are in the | | | | PDT | | results section. | + +--------+ + + + documented in this encounter Results PATHOLOGY - EXTERNAL SCAN (08/05/2018 12:00 AM PDT) + + + | Narrative | Performed At | + + + | Ordered by an | | | unspecified provider. | | + + + documented in this encounter Visit Diagnoses Not on filedocumented in this encounter"
--- OUTSIDE RECORDS SUMMARY | ~2019-11-01 | XMS | Encounter Summary ---
Demographics + + + | Address | [address] | | | [place] [address] | + + + | Home Phone | | + + + | Preferred Language | Unknown | + + + | Marital Status | | + + + | Yarsanism Affiliation | 1001 | + + + | Race | Unknown | + + + | Ethnic Group | Unknown | + + + Author + + + | Author | [facility] | | | and Christianana | + + + | Organization | [facility] | | | and [...] [place], [place] | | | | | [address] | | + + + + + Care Team Providers + +------+ + | Care Slagger Name | Role | Phone | + +------+ + | Maude Means MD | PCP | | + +------+ + Encounter Details +--------+ + + + + | Date | Type | Department | Care Team | Description | +--------+ + + + + | 02/17/ | Hospital | [facility] | Jojo Henry | Malignant neoplasm | | 2019 | Encounter | MED CTR RADIATION | MD Jessica [address] | of upper-outer | | | | ONCOLOGY CLINIC [address] | [address] [place], [place] | quadrant of right | | | | [address] [place] | [address] | breast in female, | | | | [place] [address] | | estrogen receptor | | | | [phone] | | positive (HCC) | | | | | | (Primary Dx); | | | | | | Encounter for | | | | | | screening mammogram | | | | | | for high-risk | | | | | | patient | +--------+ + + + + Social [...] + + + | Blood Pressure | 117/77 | 02/17/2019 10:50 AM | | | | | PDT | | + + + + + | Pulse | 69 | 02/17/2019 10:50 AM | | | | | PDT | | + + + + + | Temperature | 37.4 C (99.3 F) | 02/17/2019 10:50 AM | | | | | PDT | | + + + + + | Respiratory Rate | 18 | 02/17/2019 10:50 AM | | | | | PDT | | + + + + + | Oxygen Saturation | 98% | 02/17/2019 10:50 AM | | | | | PDT | | + + + + + | Inhaled Oxygen | - | - | | | Concentration | | | | + + + + + | Weight | 100 kg (220 lb 7.4 | 02/17/2019 10:50 AM | | | | oz) | PDT | | + + + + + | Height | - | - | | + + + + + | Body Mass Index | 36.29 | 09/03/2018 12:49 PM | | | [...] + + + +---------+ + + | exemestane | Take 1 tablet by | 30 | 5 | 02/18/20 | | | (AROMASIN) 25 MG | mouth Daily. | tablet | | 19 | 9 | | tablet | | | | | | + + + +---------+ + + documented as of this encounter Progress Notes Jojo Henry MD - 02/17/2019 10:47 AM PDT Radiation Oncology Follow-up Chief Complaint/ICD10 ICD-10-CM ICD-9-CM 1. Malignant neoplasm of upper-outer quadrant of right breast in female, estrogen receptor positive (HCC) C50.411 174.4 Z17.0 V86.0 2. Encounter for screening mammogram for high-risk patient Z12.31 V76.11 History of Present Illness: Breast cancer (HCC) 07/28/2018 Initial Diagnosis Presented with a palpable right breast nodule, upper outer quadrant near the areola. Pathology: Invasive carcinoma with signet ring features and focal mucinous features. Gr opal 3, no LVI, ER 100%, IL 0%, Ki-67 39%, HER-2/savanna nonamplified. 08/05/2018 Surgery Surgeon: Dr. Lucio Surgery indicated: Lumpectomy and sentinel lymph node biopsy Final pathology details: Invasive carcinoma, 2.3 cm, segment reading and focal mucinous fea tures, grade 3, close margin (0.1 mm), no LVSI, 0/1 sentinel lymph node. Pathologic stage IIA, pT2 pN0 (sn) 10/06/2018 - 11/06/2018 Radiation Therapy Right whole breast radiation with 40.05 Gy in 15 fractions Lumpectomy cavity boost with 10 Gy in 5 fractions Total 50.05 Gy in 20 fractions 11/21/2018 - Endocrine Therapy anastrozole - Started anastrozole. Reports significant musculoskeletal pain in multiple areas detailed review of systems. She has begun using a cane due to pain with ambulation. She plans to di scuss alternatives or discontinuation with Dr. Nunez today. - Denies any lasting side-effects of radiation, specifically she is not experiencing any br east pain or swelling. Reports good range of motion of her right arm, without axillary tigh tness. She has not experienced right arm lymphedema. - She notes generalized muscle skeletal pain, no concerning focal areas of skeletal pain. She has not identified any lumps or nodules. Energy is low. Appetite and weight stable. Review of systems: Constitutional: Energy level has been "so-so". Denies fatigue. Denies high fevers, shaking chills, anorexia, nausea, vomiting, weight loss, or night sweats. Appetite without changes. Ear, Nose, Mouth, Throat: Denies odynophagia, dysphagia, or tinnitus. Cardiovascular: Denies shortness of breath, dyspnea on exertion, chest pain, palpitations o r orthopnea. Respiratory: Denies cough, hemoptysis, or sputum production. Gastrointestinal: Constipation reported occasionally managed with diet. Denies abdominal pa in, constipation, diarrhea, melena, or bright red blood per rectum. Genitourinary: Denies hematuria or dysuria. Musculoskeletal: Pain 5/10 L side and R hand/knee. Denies joint pain or tenderness. Neurologic: L eye swelling with redness reported x2 which clears up with warm compress over time. Denies headache, visual changes, or numbness/tingling of the extremities. Endocrine: Swelling reported bilateral knees. R calf and ankle swelling reported. Denies pe ripheral edema or heat/cold intolerance. Hematologic: Bruises easily (on Eliquis). Denies spontaneous bruising or bleeding. Integumentary: Denies rash, wounds or other skin concerns. Pain: Pain with Anastrazole use to LLE & L arm into L shoulder. R hand and below R knee. 5/ 10 currently and described as dull; when pain spikes it can get to 9/10 and be sharp. Note: Patient here for follow up for right breast cancer. Patient completed radiation david tment on 11/06/2018. She is also following with Dr. Nunez in [place]. My chart: Declined Pain assessment: Location: LLE and left upper arm & shoulder. R knee & R hand Pain Level:5-9/10 Pain Quality: Sharp and "dull the rest of the time" Current pain regimen: Tylenol PRN "trying not to take anything for pain" Current Outpatient Medications Medication Sig Dispense Refill acetaminophen (TYLENOL) 325 mg tablet Take 650 mg by mouth every 4 hours as needed for Pain. alendronate (FOSAMAX) 70 mg tablet Take 70 mg by mouth every 7 days. apixaban (ELIQUIS) 5 mg tablet Take 1 tablet by mouth 2 times daily. 60 tablet 1 Uqzzoai-Yvxmlqxnazjlw-Twwzgrhf (EXCEDRIN PO) Take 250 mg by mouth [...] by mouth nightly. No current facility-administered medications for this visit. Allergies Allergen Reactions Penicillins Rash Shellfish Rash Sulfa Antibiotics Rash Aspirin Not Noted History of colitis Celecoxib Not Noted Gabapentin Not Noted Ibuprofen Not Noted Meloxicam Not Noted Mesalamine Not Noted Orphenadrine Not Noted Fish Oil Rash Aka Glucosamine Intolerance Allergen Reactions Azathioprine Nausea And Vomiting Azithromycin Nausea And Vomiting Codeine Nausea And Vomiting Erythromycin Nausea And Vomiting Hydrocodone Nausea And Vomiting Oxycodone Nausea And Vomiting Vitals: 02/17/19 1050 BP: 117/77 Pulse: 69 Resp: 18 Temp: 37.4 C (99.3 F) Wt Readings from Last 3 Encounters: 02/17/19 100 kg (220 lb 7.4 oz) 02/17/19 100 kg (220 lb 7.4 oz) 11/06/18 100.7 kg (222 lb 0.1 oz) Physical Exam: General: Healthy appearing woman in no acute medical distress. KPS: 80 HEENT: Pupils equal, round and reactive to light. No conjunctival icterus or injection. EOM I. Oral, moist mucus membranes. Lymphatic: No cervical, supraclavicular or axillary lymphadenopathy. Cardiovascular: Regular rate and rhythm, no murmur. Pulmonary: Breath sounds heard throughout, no adventitial sounds or increased work of breat josemanuel at rest. Extremities: Upper and lower extremities warm and well perfused with no upper or lower extr emity edema. Neurologic: Alert, oriented and appropriated in conversation. CN II-IX grossly intact. Moves all 4 extremities normally with normal gait. Psychiatric: Appropriate. Breast: On upright exam breasts appear symmetric bilaterally with no contour abnormalities or malignant appearing skin changes. The right breast demonstrates a well-healed surgical incision. On supine exam palpation of the right breast demonstrates mild fibrosis at the si te of prior lumpectomy. No discrete mass lesions are identified in either breast. There is no pain with palpation. No nipple changes. Labs: No recent results. Imaging: No recent results. Assessment: ICD-10-CM ICD-9-CM 1. Malignant neoplasm of upper-outer quadrant of right breast in female, estrogen receptor positive (HCC) C50.411 174.4 Z17.0 V86.0 2. Encounter for screening mammogram for high-risk patient Z12.[address] [facility] Tomosynthesis Screening Bilateral Yamilet has recovered well from breast radiation. She does not have any bothersome lastin g side-effects. We discussed that breast massage and stretching can help prevent fibrosis a nd breast hypersensitivity from developing. Her primary concern is diffuse musculoskeletal pain which she attributes to anastrozole. She is scheduled to see Dr. Nunez today to further discuss this. Clinical history and exam do not demonstrate any evidence of breast c ancer, reassurance provided. Plan: - Continue follow-up with Dr. Nunez as planned, to discuss musculoskeletal pain asso ciated with initiation of anastrozole. - Annual screening mammogram due in late May, we will order this to be done at [facility]. - Follow-up with me in 6 months, sooner if needed. Orders Placed This Encounter Procedures [facility] Tomosynthesis Screening Bilateral Thank you for allowing me to participate in the care of Yamilet [place]. If you avery uld have any questions regarding this evaluation, please do not hesitate to contact me. Jojo Henry M.D. Radiation Oncologist Department of Radiation Oncology [facility] Office: [phone] documented in this encounter Plan of Treatment +--------+ + + + + | Date | Type | Specialty | Care Team | Description | +--------+ + + + + | 06/24/ | Appointment | Radiation Oncology | Jojo Henry | | | 2020 | | | MD Jessica [address] | | | | | | [place] | | | | | | [address] | | | | | | | | +--------+ + + + + + +---------+--------+ + + | Name | Type | Priori | Associated Diagnoses | Order Schedule | | | | ty | | | + +---------+--------+ + + | [facility] Tomosynthesis | Imaging | Routin | Encounter for | Expected: | | Screening Bilateral | | e | screening mammogram | 06/19/2019, Expires: | | | | | for high-risk | 04/19/2020 | | | | | patient | | + +---------+--------+ + + documented as of this encounter Visit Diagnoses + + | Diagnosis | + + | Malignant neoplasm of upper-outer quadrant of right breast in female, estrogen | | receptor positive (HCC) - Primary | + + | Encounter for screening mammogram for high-risk patient | + + documented in this encounter
--- OUTSIDE RECORDS SUMMARY | ~2019-11-01 | XMS | Encounter Summary ---
Demographics + + + | Address | [address] | | | [place] [address] | + + + | Home Phone | | + + + | Preferred Language | Unknown | + + + | Marital Status | | + + + | Tenriism Affiliation | 1001 | + + + | Race | Unknown | + + + | Ethnic Group | Unknown | + + + Author + + + | Author | [facility] | | | and Christianana | + + + | Organization | [facility] | | | and Christianana [...] [place], [place] | | | | | [address] | | + + + + + Care Team Providers + +------+ + | Care Construction Crew Member Name | Role | Phone | + +------+ + PCP | Unavailable | + +------+ + Encounter Details +--------+ + + + + | Date | Type | Department | Care Team | Description | +--------+ + + + + | [facility] | Brett Wing MD | | | 1997 | Encounter | MED CTR GENERIC OP | [address] | | | | | CONV DEPT [address] | [address] | | | | | [place], | [address] | | | | | [place] [address] | | | | | | [phone] | | | +--------+ + + + [...] [place] | | | | | | [address] | | | | | | | | +--------+ + + + + documented as of this encounter Visit Diagnoses Not on filedocumented in this encounter"
--- OUTSIDE RECORDS SUMMARY | ~2019-11-01 | XMS | Encounter Summary ---
Demographics + + + | Address | [address] | | | [place] [address] | + + + | Home Phone | | + + + | Preferred Language | Unknown | + + + | Marital Status | | + + + | Denominational Affiliation | 1001 | + + + | Race | Unknown | + + + | Ethnic Group | Unknown | + + + Author + + + | Author | [facility] | | | and Christianana | + + + | Organization | [facility] | | | and Christianana [...] [place], [place] | | | | | [address] | | + + + + + Care Team Providers + +------+ + | Care Folder Operator Name | Role | Phone | [...] | Malignant | Jojo M, | [address] | | | | | neoplasm of | MD [address] | [place], | | | | | right breast | [address] | [place] [address] | | | | | in female, | [place], | Phone: | | | | | estrogen | [place] [address] | [phone] | | | | | receptor | Phone: | Fax: | | | | | positive, | [phone] | [phone] | | | | | unspecified | Fax: | | | | | | site of | [phone] | | | | | | breast [...] | +--------+ + + + + | 09/24/ | Orders Only | [facility] | Riegert, Jojo | Malignant neoplasm | | 2018 | | MED CTR RADIATION | MD Jessica [address] | of right breast in | | | | [facility] [address] | [place], [place] | female, estrogen | | | | [address] [place] | [address] | receptor positive, | | | | [place] [address] | | unspecified site of | | | | [phone] | | breast (HCC) | | | [...] [place] | | | | | | [id number] | | | | | | | | +--------+ + + + + documented as of this encounter Results CT Treatment Plan Complex [...] unspecified | | site of breast (HCC) - Primary | + + documented in this encounter"
--- OUTSIDE RECORDS SUMMARY | ~2019-11-01 | XMS | Encounter Summary ---
Demographics + + + | Address | [address] | | | [place] [address] | + + + | Home Phone | | + + + | Preferred Language | Unknown | + + + | Marital Status | | + + + | Zoroastrianism Affiliation | 1001 | + + + | Race | Unknown | + + + | Ethnic Group | Unknown | + + + Author + + + | Author | [facility] | | | and Christianana | + + + | Organization | [facility] | [...] [place], [place] | | | | | [address] | | + + + + + Care Team Providers + +------+ + | Care Tester Food Products Name | Role | Phone | + +------+ + | Puneet Donovan MD | PCP | | + +------+ + Encounter Details +--------+ + + + + | Date | Type | Department | Care Team | Description | +--------+ + + + + | 02/15/ | Abstract | [facility] | Brett Wing MD | | | 2016 | | GASTROENTEROLOGY | [address] | | | | | [address] | [address] [place], [place] | | | | | [address] [place], [place] | [address] | | | | | [address] | | | | | | [phone] | | | +--------+ + + + [...] | | | | [place] | | | | | | [address] | | | | | | | | +--------+ + + + + documented as of this encounter Procedures + +--------+ + + + | Procedure Name | Priori | Date/Time | Associated Diagnosis | Comments | | | ty | | | | + +--------+ + + + | EXTERNAL: | Routin | 01/31/2016 | | Results for this | | COLONOSCOPY | e | | | procedure are in the | | | | | | results section. | + +--------+ + + + documented in this encounter Results EXTERNAL: COLONOSCOPY (01/31/2016) + + + + + + | Component | Value | Ref Range | Performed | Pathologist | | | | | At | Signature | + + + + + + | Colonoscopy | Procedure: EGD / | | | | | | COLONOSCOPY; Surgeon: | | | | | Impression, | Brett Wing MD; | | | | | External | Location: [facility] | | | | | | PROCEDURE UNIT | | | | + + + + + + documented in this encounter Visit Diagnoses Not on filedocumented in this encounter"
--- OUTSIDE RECORDS SUMMARY | ~2019-11-01 | XMS | Encounter Summary ---
Demographics + + + | Address | [address] | | | [place] [address] | + + + | Home Phone | | + + + | Preferred Language | Unknown | + + + | Marital Status | | + + + | Judaism Affiliation | 1001 | + + + | Race | Unknown | + + + | Ethnic Group | Unknown | + + + Author + + + | Author | [facility] | | | and Christianana | + + + | Organization | [facility] | | | and [...] [place] | | | | | [address] | | + + + + + Care Team Providers + +------+ + | Care Cooler Service Supervisor Name | Role | Phone | + [...] | | [address] | [place] [address] | location, | | | | [place], [place] | [phone] | unspecified back | | | | [address] | | pain laterality, | | | | [phone] | | unspecified | | | | [...] [place] | | | | | | [place], [place] | | | | | | [address] | | | | | | | [...]
--- OUTSIDE RECORDS SUMMARY | ~2019-11-01 | XMS | Encounter Summary ---
Demographics + + + | Address | [address] | | | [place] [address] | + + + | Home Phone | | + + + | Preferred Language | Unknown | + + + | Marital Status | | + + + | Episcopal Affiliation | 1001 | + + + | Race | Unknown | + + + | Ethnic Group | Unknown | + + + Author + + + | Author | [facility] | | | and Christianana | + + + | Organization | [facility] | | | and Christianana [...] | [place] | | | | | [address] | | + + + + + Care Team Providers + +------+ + | Care Electrical Prospecting Engineer Name | Role | Phone | + [...] | | | | | [place] [address] | | | | | | [phone] | | | +--------+ + + + [...] [place] | | | | | | [id number] | | | | | | | | +--------+ + + + + documented as of this encounter Visit Diagnoses Not on filedocumented in this encounter"
--- OUTSIDE RECORDS SUMMARY | ~2019-11-01 | XMS | Encounter Summary ---
Demographics + + + | Address | [address] | | | [place] [address] | + + + | Home Phone | | + + + | Preferred Language | Unknown | + + + | Marital Status | | + + + | Tenriism Affiliation | 1001 | + + + | Race | Unknown | + + + | Ethnic Group | Unknown | + + + Author + + + | Author | [facility] | | | and Christianana | + + + | Organization | [facility] | | | and [...] | [place] | | | | | [address] | | + + + + + Care Team Providers + +------+ + | Care Data Integrity Consultant Name | Role | Phone | [...] | +--------+ + + + + | 08/28/ | Hospital | [facility] | Jojo Henry | Malignant neoplasm | | 2019 | Encounter | MED CTR RADIATION | MD Jessica [address] | of upper-outer | | | | [facility]OGY CLINIC [address] | [place], [place] | quadrant of right | | | | [address] [place] | [address] | breast in female, | | | | [place] [address] | | estrogen receptor | | | | [phone] | | positive (HCC) | | | [...] + + + | Blood Pressure | 101/60 | 08/28/2019 11:12 AM | | | | | PST | | + + + + + | Pulse | 75 | 08/28/2019 11:12 AM | | | | | PST | | + + + + + | Temperature | 37 C (98.6 F) | 08/28/2019 11:12 AM | | | | | PST | | + + + + + | Respiratory Rate | 16 | 08/28/2019 11:12 AM | | | | | PST | | + + + + + | Oxygen Saturation | 99% | 08/28/2019 11:12 AM | | | | | PST | | + + + + + | Inhaled Oxygen | - | - | | | Concentration | | | | + + + + + | Weight | 97.7 kg (215 lb 6.2 | 08/28/2019 11:12 AM | | | | oz) | PST | | + + + + + | Height | - | - | | + + + + + | Body Mass Index | 35.46 | 09/03/2018 12:49 PM | | | [...] + documented as of this encounter Discharge Instructions Patient Instructions Sindy Graves RN - 08/28/2019 11:37 AM PSTFollow-up with Dr. Gabriele suazo in early June 2020 Imaging: Annual mammogram due in late May at [facility]. Follow-up with Dr. Nunez at [facility] as directed as well, next November 2019. Alternation of follow-up between providers anticipated. documented in this encounter Medications at Time of [...] + + + +---------+ + + | tamoxifen | Take 20 mg by mouth | | 0 | 08/09/20 | | | (NOLVADEX) 20 MG | Daily. | | | 19 | | | tablet | | | | | | + + + +---------+ + + documented as of this encounter Progress Notes Jojo Henry MD - 08/28/2019 11:30 AM PST Radiation Oncology Follow-up Chief Complaint/ICD10 ICD-10-CM ICD-9-CM 1. Malignant neoplasm of upper-outer quadrant of right breast in female, estrogen receptor positive (HCC) C50.411 174.4 Z17.0 V86.0 History of Present Illness: Breast cancer (HCC) 07/28/2018 Initial Diagnosis Presented with a palpable right breast nodule, upper outer quadrant near the areola. Pathology: Invasive carcinoma with signet ring features and focal mucinous features. Gr opal 3, no LVI, ER 100%, MD 0%, Ki-67 39%, HER-2/savanna nonamplified. 08/05/2018 Surgery Surgeon: Dr. Lucio Surgery indicated: Lumpectomy and sentinel lymph node biopsy Final pathology details: Invasive carcinoma, 2.3 cm, segment reading and focal mucinous fea turyoshi, grade 3, close margin (0.1 mm), no LVSI, 0/1 sentinel lymph node. Pathologic stage IIA, pT2 pN0 (sn) 10/06/2018 - 11/06/2018 Radiation Therapy Right whole breast radiation with 40.05 Gy in 15 fractions Lumpectomy cavity boost with 10 Gy in 5 fractions Total 50.05 Gy in 20 fractions 11/21/2018 - Endocrine Therapy Tamoxifen Yamilet Hernandes completed radiation 10 months ago, she returns for routine follow-u p. Yamilet is recovering from a recent illness including respiratory symptoms and nausea. Sy mptoms are progressively improving. Ongoing fatigue. Appetite is stable, weight is down 5 pounds in the past 6 months. Her ulcerative colitis is well managed. 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 General health is overall stable. She is not experiencing any new focal areas of bone pain however reports joint tenderness relat ed to endocrine therapy. She has tried multiple endocrine therapy options and is currently on tamoxifen. She reports acceptable tolerance. Yamilet does not report any breast pain o r breast concerns. She has not identified any lumps or nodules. Ongoing treatment: Tamoxifen, switch from exemestane in April. Review of systems: Constitutional: Reports fatigue continues unchanged. Reports previous nausea after getting sick a few weeks ago, has since resolved. Denies high fevers, shaking chills, anorexia, patti sea, vomiting, weight loss, or night sweats. Appetite without changes. Ear, Nose, Mouth, Throat: Reports tinnitus continues unchanged. Denies odynophagia, dysphag ia. Cardiovascular: Denies shortness of breath, dyspnea on exertion, chest pain, palpitations o r orthopnea. Respiratory: Reports cough from being sick a few weeks ago with light green sputum, states this is resolving. Denies hemoptysis, or sputum production. Gastrointestinal: Denies abdominal pain, constipation, diarrhea, melena, or bright red bloo d per rectum. Genitourinary: Denies hematuria or dysuria. Musculoskeletal: Reports joint pain/tenderness to bilat knees, left shoulder, lower back an d right hand, had been on endocrine therapy and was switched to Tamoxifen after trying anast rozole then exemestane. Reports improvement in joint pain since switching to Tamoxifen Neurologic: Denies headache, visual changes, or numbness/tingling of the extremities. Endocrine: Reports occasional swelling to legs, continues unchanged, resolves with elevatio n. Denies heat/cold intolerance. Hematologic: Reports bruises easily, she is taking Eliquis. Integumentary: Denies rash, wounds or other skin concerns. Pain: Denies pain currently. Note: 6 month F/U with Dr. Henry; review MMG done at [facility] My chart: Inactive Pain assessment: Location: n/a Pain Level: PAIN PROG PAIN LEVEL: 0 Current Outpatient Medications on File Prior to Encounter Medication Sig Dispense Refill acetaminophen (TYLENOL) 325 mg tablet Take 650 mg by mouth every 4 hours as needed for Pain. alendronate (FOSAMAX) 70 mg tablet Take 70 mg by mouth every 7 days. apixaban (ELIQUIS) 5 mg tablet Take 1 tablet by mouth 2 times daily. 60 tablet 1 Przwgww-Twvsvjfcyvujn-Cmahkgjz (EXCEDRIN PO) Take 250 mg by mouth [...] tablet Take 150 mg by mouth nightly. tamoxifen (NOLVADEX) 20 MG tablet Take 20 mg by mouth Daily. No current facility-administered medications on file prior to encounter. Allergies Allergen Reactions Penicillins Rash Shellfish Rash Sulfa Antibiotics Rash Aspirin Not Noted History of colitis Celecoxib Not Noted Gabapentin Not Noted Ibuprofen Not Noted Meloxicam Not Noted Mesalamine Not Noted Orphenadrine Not Noted Fish Oil Rash Aka Glucosamine Intolerance Allergen Reactions Anastrozole Other (See Comments) Joint pain Azathioprine Nausea And Vomiting Azithromycin Nausea And Vomiting Codeine Nausea And Vomiting Erythromycin Nausea And Vomiting Hydrocodone Nausea And Vomiting Oxycodone Nausea And Vomiting Vitals: 08/28/19 1112 BP: 101/60 Pulse: 75 Resp: 16 Temp: 37 C (98.6 F) Wt Readings from Last 3 Encounters: 08/28/19 97.7 kg (215 lb 6.2 oz) 02/17/19 100 kg (220 lb 7.4 oz) 02/17/19 100 kg (220 lb 7.4 oz) Physical Exam: General: Healthy appearing female in no acute medical distress. KPS: 80% HEENT: Pupils equal, round and reactive to light. No conjunctival icterus or injection. EOM I. Oral, moist mucus membranes. Lymphatic: No cervical, supraclavicular or axillary lymphadenopathy. Cardiovascular: Regular rate and rhythm, no murmur. Pulmonary: Breath sounds heard throughout, no adventitial sounds or increased work of breat josemanuel at rest. Extremities: Tightness and soreness to left shoulder Upper and lower extremities warm and w ell perfused with no upper or lower extremity edema. Neurologic: Alert, oriented and appropriated in conversation. CN II-IX grossly intact. Moves all 4 extremities normally with normal gait. Psychiatric: Appropriate. Right breast: skin dukes and dry, minimal fibrosis at lumpectomy site, less in armpit. Well- healed surgical incision. No masses appreciated. Left breast intact, normal parenchyma, no masses. No malignant appearing skin changes on either breast. Labs: No recent results. Imaging: Review of relevant imaging reports: 06/19/19 bilateral screening mammogram performed at [facility], BI-RADS Category 2, maxwell gray Assessment: ICD-10-CM ICD-9-CM 1. Malignant neoplasm of upper-outer quadrant of right breast in female, estrogen receptor positive (HCC) C50.411 174.4 Z17.0 V86.0 Yamilet Hernandes is approaching 1 year since the completion of breast conserving the rapy for early stage ER+ right breast cancer. She does not have any bothersome lasting side -effects of radiation treatment. There is minimal fibrosis on exam. She has mild tightness of the axilla and shoulder, she is encouraged to perform stretches to maintain ROM. Clinic al history and exam today are benign, no clinical evidence of disease recurrence. She is up -to-date on mammography, next due in May 2020. After multiple trials of different endocrine therapy medications, she has settled on tamoxi fen and is tolerating this reasonably well. She is encouraged to continue follow-up with Dr Tomeka Nunez at [facility] as directed. Plan: Follow-up with Dr. Henry in early June 2020 Imaging: Annual mammogram due in late May at [facility]. Follow-up with Dr. Nunez at [facility] as directed as well, next November 2019. Alternation of follow-up between providers anticipated. Thank you for allowing me to participate in the care of Yamilet Hernandes. If you avery hilton have any questions regarding this evaluation, please do not hesitate to contact me. Jojo Henry M.D. Radiation Oncologist Department of Radiation Oncology [facility] Office: [phone] signed by Jojo Henry MD at 10/31/2019 3:[address] in this encounter Plan of Treatment +--------+ + + + + | Date | Type | Specialty | Care Team | Description | +--------+ + + + + | 06/24/ | Appointment | Radiation Oncology | Jojo Henry | | 2019 | | | MD [address] | | | | | | [place], [place] | | | | | | [address] | | | | | | | | +--------+ + + + + + +---------+--------+ + + | Name | Type | Priori | Associated Diagnoses | Order Schedule | | | | ty | | | + +---------+--------+ + + | [facility] Tomosynthesis | Imaging | Routin | Malignant neoplasm | Expected: 06/21/2020 | | Screening Bilateral | | e | of upper-outer | (Approximate), | | | | | quadrant of right | Expires: 10/28/2020 | | | | | breast in female, | | | | | | estrogen receptor | | | | | | positive (HCC) | | | | | | Encounter [...] patient | + + documented in this encounter"
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
--- OUTSIDE RECORDS SUMMARY | ~2019-11-01 | XMS | Encounter Summary ---
Demographics + + + | Address | [address] | | | [place] [address] | + + + | Home Phone | | + + + | Preferred Language | Unknown | + + + | Marital Status | | + + + | Orthodoxy Affiliation | 1001 | + + + | Race | Unknown | + + + | Ethnic Group | Unknown | + + + Author + + + | Author | [facility] | | | and [place] | + + + | Organization | [facility] | | | and [place] [...] | [place] | | | | | [address] | | + + + + + Care Team Providers + +------+ + | Care Sales Support Technician Name | Role | Phone | + +------+ + | Maude Means MD | PCP | | + +------+ + Reason for Visit +---------+ + | Reason | Comments | +---------+ + | Testing | | +---------+ + Encounter Details +--------+ + + + + | Date | Type | Department | Care Team | Description | +--------+ + + + + | 09/16/ | Telephone | [facility] | Yoana Poe RN | Testing | | 2018 | | [facility] | [facility] [address] | | | | | | [address] | | | | | | [place] [address] | | | | | | [phone] | | | +--------+ + + + [...] [place] | | | | | | [address] | | | | | | | | +--------+ + + + + documented as of this encounter Visit Diagnoses Not on filedocumented in this encounter"
--- OUTSIDE RECORDS SUMMARY | ~2019-11-01 | XMS | Encounter Summary ---
Demographics + + + | Address | [address] | | | [place] [address] | + + + | Home Phone | | + + + | Preferred Language | Unknown | + + + | Marital Status | | + + + | Bahai Affiliation | 1001 | + + + | Race | Unknown | + + + | Ethnic Group | Unknown | + + + Author + + + | Author | [facility] | | | and [place] | + + + | Organization | [facility] | | | and [place] [...] [place] | | | | | [address] | | + + + + + Care Team Providers + +------+ + | Care Windows Desktop Engineer Name | Role | Phone | + +------+ + | Maude Means MD | PCP | | + +------+ + Encounter Details +--------+ + + + + | Date | Type | Department | Care Team | Description | +--------+ + + + + | 09/03/ | Hospital | [facility] | Jojo Henry | | | 2018 | Encounter | [facility] | M, MD [address] | | | | | ONCOLOGY [address] [place], [place] | | | | | [place], | [address] | | | | | [place] [address] | | | | | | [phone] | | | +--------+ + + + [...] [place] | | | | | | [id number] | | | | | | | [...]
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
--- OUTSIDE RECORDS SUMMARY | ~2019-11-01 | XMS | Encounter Summary ---
Demographics + + + | Address | [address] | | | [place] [address] | + + + | Home Phone | | + + + | Preferred Language | Unknown | + + + | Marital Status | | + + + | Confucianist Affiliation | 1001 | + + + | Race | Unknown | + + + | Ethnic Group | Unknown | + + + Author + + + | Author | [facility] | | | and Christianana | + + + | Organization | [facility] | | | and Christianana [...] [place], [place] | | | | | [address] | | + + + + + Care Team Providers + +------+ + | Care Machine Ii Cutter Name | Role | Phone | + +------+ + | Maude Means MD | PCP | | + +------+ + Encounter Details +--------+ + + + + | Date | Type | Department | Care Team | Description | +--------+ + + + + | 01/22/ | Orders Only | [facility] | Conversion | | | 2015 | | INFECTIOUS DISEASE | Transaction, | | | | | [address] | Provider Unknown | | | | | [place] | [phone] | | | | | [address] | | | | | | [phone] | | | +--------+ + + + [...] 06/24/ | Appointment | Radiation Oncology | Zia Henryen | | | 2020 | | | MD Jessica [address] | | | | | | [place] | | | | | | [address] | | | | | | | | +--------+ + + + + documented as of this encounter Procedures + +--------+ + + + | Procedure Name | Priori | Date/Time | Associated Diagnosis | Comments | | | ty | | | | + +--------+ + + + | EXTERNAL LAB: CBC | Routin | 2016 | | Results for this | | | e | 12:00 AM | | procedure are in the | | | | PDT | | results section. | + +--------+ + + + | SEDIMENTATION RATE, | Routin | 2016 | | Results for this | | AUTOMATED | e | 12:00 AM | | procedure are in the | | | | PDT | | results section. | + +--------+ + + + | C-REACTIVE PROTEIN | Routin | 2016 | | Results for this | | | e | 12:00 AM | | procedure are in the | | | | PDT | | results section. | + +--------+ + + + | COMPREHENSIVE | Routin | 2016 | | Results for this | | METABOLIC PANEL | e | 12:00 AM | | procedure are in the | | | | PDT | | results section. | + +--------+ + + + documented in this encounter Results Sedimentation rate, automated (2016 12:00 AM PDT) + +--------+ + + + | Component | Value | Ref Range | Performed | Pathologist | | | | | At | Signature | + +--------+ + + + | Sed Rate | 45 (A) | 0 - 20 mm/hr | EXTERNAL | | | | | | LAB | | + +--------+ + + + + + | Specimen | + + | Blood specimen | | (specimen) | + + + +---------+ + + | Performing | Address | City/State/Zipcode | Phone Number | | Organization | | | | + +---------+ + + | EXTERNAL LAB | | | | + +---------+ + + External Lab: CBC (2016 12:00 AM PDT) + + + + + + | Component | Value | Ref Range | Performed | Pathologist | | | | | At | Signature | + + + + + + | WBC | 3.1 (A) | 4.5 - 11.0 K/uL | EXTERNAL | | | | | | LAB | | + + + + + + | RED CELL | 3.63 (A) | 3.8 - 5.1 M/uL | EXTERNAL | | | COUNT | | | LAB | | + + + + + + | Hgb | 10.3 (A) | 12.0 - 16.0 | EXTERNAL | | | | | g/dL | LAB | | + + + + + + | Hematocrit, | 32.3 (A) | 35 - 45 % | EXTERNAL | | | POC | | | LAB | | + + + + + + | MCV | 88.8 | 81 - 99 fL | EXTERNAL [...] + + + + | Platelet | 147 | 140 - 440 K/uL | EXTERNAL | | | Count | | | LAB | | | Plasma | | | | | + + + + + + | RDW-CV | 14.6 | 10.5 - 15.0 % | EXTERNAL [...] + + + | % Segmented | 69.8 | 39 - 80 % | EXTERNAL | | | | | | LAB | | | Neutrophils | | | | | + + + + + + | % | 19.2 (A) | 24 - 44 % | EXTERNAL | | | Lymphocytes | | | LAB | | + + + + + + | % Monocytes | 9.2 | 0 - 12 % | EXTERNAL | | | | | | LAB | | + + + + + + | % | 1.7 | 0 - 6 % | EXTERNAL | | | Eosinophils | | | LAB | | + + + + + + | % Basophils | 0.1 | 0 - 2 % | EXTERNAL [...] | + +---------+ + + C-Reactive Protein (2016 12:00 AM PDT) + + + + + + | Component | Value | Ref Range | Performed | Pathologist | | | | | At | Signature | + + + + + + | CRP | 17.4 (A) | 0 - 5 mg/L | EXTERNAL [...] | | | + +---------+ + + Comprehensive Metabolic Panel (2016 12:00 AM PDT) + + + + + + | Component | Value | Ref Range | Performed | Pathologist | | | | | At | Signature | + + + + + + | Glucose, | 129 (A) | 70 - 100 mg/dL | EXTERNAL | | | Fasting | | | LAB | | + + + + + + | BUN | 8 | 6 - 23 mg/dL | EXTERNAL | | | | | | LAB | | + + + + + + | Creatinine | 0.69 (A) | 0.70 - 1.25 | EXTERNAL | | | | | mg/dL | LAB | | + + + + + + | BUN/Creatin | 11.6 | 6.0 - 28.6 | EXTERNAL | | | ine Ratio | | | LAB | | + + + + + + | Calcium | 9.5 | 8.4 - 10.2 | EXTERNAL | | | | | mg/dL | LAB | | + + + + + + | Protein, | 6.2 | 6.0 - 8.0 g/dL | EXTERNAL | | | Total | | | LAB | | + + + + + + | Albumin | 3.5 | 3.5 - 5.0 g/dL | EXTERNAL | | | | | | LAB | | + + + + + + | Globulin | 2.7 | 1.8 - 3.5 g/dL | EXTERNAL | | | | | | LAB | | + + + + + + | A/G Ratio | 1.3 | 1.1 - 2.4 | EXTERNAL | | | | | | LAB | | + + + + + + | Bilirubin | 0.3 | 0.0 - 1.2 mg/dL | EXTERNAL | | | Total | | | LAB | | + + + + + + | ALP, | 117 | 30 - 128 U/L | EXTERNAL | | | External | | | LAB | | + + + + + + | ALT | 20 | 7 - 52 U/L | EXTERNAL | | | | | | LAB | | + + + + + + | AST | 29 | 13 - 39 U/L | EXTERNAL | | | | | | LAB | | + + + + + + | Na | 127 (A) | 132 - 143 meq/L | EXTERNAL | | | | | | LAB | | + + + + + + | K | 3.9 | 3.6 - 5.1 meq/L | EXTERNAL | | | | | | LAB | | + + + + + + | Cl | 96 | 95 - 112 meq/L | EXTERNAL | | | | | | LAB | | + + + + + + | CO2 | 24 | 19 - 31 meq/L | EXTERNAL | | | | | | LAB | | + + + + + + | Anion Gap | 10.9 | 7 - 21 | EXTERNAL | | | | | | LAB | | + + + + + + | Estimated | 86 | ml/min | EXTERNAL | | | GFR [...]
--- OUTSIDE RECORDS SUMMARY | ~2019-11-01 | XMS | Encounter Summary ---
Demographics + + + | Address | [address] | | | [place] [address] | + + + | Home Phone [...] | Author | [facility] | | | and Christianana | + + + | Organization | [facility] | | | and Christianana | [...] [place], [place] | | | | | [address] | | + + + + + Care Team Providers + +------+ + | Care Wrapping Machine Tender Name | Role | Phone | + +------+ + | Maude Means MD | PCP | | + +------+ + Encounter Details +--------+ + + + + | Date | Type | Department | Care Team | Description | +--------+ + + + + | 10/08/ | Documentati | [facility] | Ronna Andrade | | | 2018 | on | MED CNT ONCOLOGY | A, OT | | | | | THERAPY [address] | | | | | | [place], | | | | | | [place] [address] | | | | | | [phone] | | | +--------+ + + + [...] as of this encounter Progress Notes Ronna Andraed OT - 10/08/2018 10:44 AM PST[facility] OT OP [address] [place] [address] Oncology Rehab Screening Date: 10/08/2018 Patient Information Patient Name: Yamilet Hernandes Date of : 1950 Age: 68 y.o. Patient was seen for oncology rehab screening due to new patient consult. Patient currently being treated for R breast cancer; s/p R lumpectomy and SNB 07/2018 and treatment regimen i ncludes radiation. Introduced self to patient and advised her of role [facility]. Patient is currently identifying no functional limitations related to her breast cancer diagnosis. She has good RUE ROM, no edema per report and is performin g scar massage. Instructed patient in daily ROM and continued massage during radiation to e nsure pliability of tissues remains. Patient expressed understanding and voiced no concerns . Most of her concerns were expressed re: her hx of back problems and hx of B knee replacem ent. Encouraged patient to continue with her exercises she has been given for these issues in the past from physical therapy. Patient concurs and also reports she plans on walking du ring the day as much as possible. Encouraged patient to contact oncology rehab if any [facility] questions or concerns should arise in future. Therapist will f/u with patient 1 addition al time prior to conclusion of her radiation. Will have follow up visit in cancer center. Electronically signed by: Ronna Andrade OT, 10/08/2018 10:44 Patient Name: Yamilet Franklinkathydeepak/: 1950/ documented in this encounter Plan of Treatment +--------+ + + + + | Date | Type | Specialty | Care Team | Description | +--------+ + + + + | 06/24/ | Appointment | Radiation Oncology | Jojo Henry | | | 2019 | | | MD [address] | | | | | | [place] | | | | | | [id number] | | | | | | | | +--------+ + + + + documented as of this encounter Visit Diagnoses Not on filedocumented in this encounter"
--- OUTSIDE RECORDS SUMMARY | ~2019-11-01 | XMS | Encounter Summary ---
Demographics + + + | Address | [address] | | | [place] [address] | + + + | Home Phone | | + + + | Preferred Language | Unknown | + + + | Marital Status | | + + + | Christian Affiliation | 1001 | + + + | Race | Unknown | + + + | Ethnic Group | Unknown | + + + Author + + + | Author | [facility] | | | and Christianana | + + + | Organization | [facility] | | | and Christianana [...] | [place] | | | | | [address] | | + + + + + Care Team Providers + +------+ + | Care Forest Scientist Name | Role | Phone | + +------+ + | Maude Means MD | PCP | | + +------+ + Reason for Visit + + + | Reason | Comments | + + + | IDT Note | | + + + Encounter Details +--------+ + + + + | Date | Type | Department | Care Team | Description | +--------+ + + + + | 10/01/ | Telephone | [facility] | Laquita, | IDT Note | | 2018 | | MED CTR RADIATION | Tiffanie, RN | | | | | ONCOLOGY CLINIC [address] | | | | | [address] | | | | | | [place] [address] | | | | | | [phone] | | | +--------+ + + + [...] | | | | [place] | | | | | | [id number] | | | | | | | | +--------+ + + + + documented as of this encounter Visit Diagnoses Not on filedocumented in this encounter"
--- OUTSIDE RECORDS SUMMARY | ~2019-11-01 | XMS | Encounter Summary ---
Demographics + + + | Address | [address] | | | [place] [address] | + + + | Home Phone | | + + + | Preferred Language | Unknown | + + + | Marital Status | | + + + | Alevism Affiliation | 1001 | + + + | Race | Unknown | + + + | Ethnic Group | Unknown | + + + Author + + + | Author | [facility] | | | and [place] | + + + | Organization | [facility] | | | and [...] | [place] | | | | | [address] | | + + + + + Care Team Providers + +------+ + | Care Cement Based Materials Pump Tender Name | Role | Phone | + +------+ + | Puneet Donovan MD | PCP | | + +------+ + Encounter Details +--------+ + + + + | Date | Type | Department | Care Team | Description | +--------+ + + + + | 12/31/ | [facility] | [facility] | Bhavesh Lomax MD | Back pain, | | 2018 | Encounter | MED CTR XRAY [address] | [address] | unspecified back | | | | [place] | [place] [address] | location, | | | | [place] [address] | [phone] | unspecified back | | | | [phone] | | pain laterality, | | | | | | unspecified | | | | | | chronicity | +--------+ + + + + Social [...] [place] | | | | | | [id number] | | | | | | | | +--------+ + + + + documented as of this encounter Procedures + +--------+ + + + | Procedure Name | Priori | Date/Time | Associated Diagnosis | Comments | | | ty | | | | + +--------+ + + + | XR SCOLIOSIS ENTIRE | Routin | 12/31/2017 | Back pain, | Results for this | | SPINE 6+ VIEWS | e | 8:44 AM | unspecified back | procedure are in the | | | | PDT | location, | results section. | | | | | unspecified back | | | | | | pain laterality, | | | | | | unspecified | | | | | | chronicity | | + +--------+ + + + documented in this encounter Results XR Scoliosis Entire Spine [...] back pain laterality, unspecified | | chronicity | + + documented in this encounter"
--- OUTSIDE RECORDS SUMMARY | ~2019-11-01 | XMS | Encounter Summary ---
Demographics + + + | Address | [address] | | | [place] [address] | + + + | Home Phone | | + + + | Preferred Language | Unknown | + + + | Marital Status | | + + + | Hinduism Affiliation | 1001 | + + + | Race | Unknown | + + + | Ethnic Group | Unknown | + + + Author + + + | Author | [facility] | | | and [place] | + + + | Organization | [facility] | | | and [...] | [place] | | | | | [address] | | + + + + + Care Team Providers + +------+ + | Care Glass Cutting Machine Operator Name | Role | Phone | + +------+ + | Maude Means MD | PCP | | + +------+ + Reason for Visit + + + | Reason | Comments | + + + | Advice Only | | + + + Evaluate & Treat (Routine) +--------+ + + + + + | Status | Reason | Specialty | Diagnoses / | Referred By | Referred To | | | | | Procedures | Contact | Contact | +--------+ + + + + + | Closed | Specialty | Oncology | Diagnoses | Naveed, | | | | Services | | Breast CA | Orville Mohan | Mayra, | | | Required | | Procedures | [address] | Yosi Yee MD | | | | | OR OFFICE | [address] | [address] | | | | | OUTPATIENT | [address] | [address] [place] | | | | | [address] | [place], | [place], [place] | | | | | MINUTES | [place] [address] | [address] Phone: | | | | | | Phone: | [phone] | | | | | | [phone] | Fax: | | | | | | Fax: | [phone] | | | | | | [phone] | | +--------+ + + + + + Encounter Details +--------+ + + + + | Date | Type | Department | Care Team | Description | +--------+ + + + + | 09/16/ | Hospital | [facility] | Mayra, | Malignant neoplasm | | 2018 | Encounter | MED CTR MEDICAL | Yosi Yee MD [address] | of upper-outer | | | | [facility]COLOGY CLINIC [address] [place] | quadrant of right | | | | [address] [place] | [place] [address] | breast in female, | | | | [place] [address] | [phone] | estrogen receptor | | | | [phone] | | positive (HCC) | +--------+ + [...] + + + | Blood Pressure | 131/79 | 09/16/2018 1:49 PM | | | | | PST | | + + + + + | Pulse | 81 | 09/16/2018 1:49 PM | | | | | PST | | + + + + + | Temperature | 37.1 C (98.8 F) | 09/16/2018 1:49 PM | | | | | PST | | + + + + + | Respiratory Rate | 18 | 09/16/2018 1:49 PM | | | | | PST | | + + + + + | Oxygen Saturation | 100% | 09/16/2018 1:49 PM | | | | | PST | | + + + + + | Inhaled Oxygen | - | - | | | Concentration | | | | + + + + + | Weight | 99.6 kg (219 lb 9.3 | 09/16/2018 1:49 PM | | | | oz) | PST | | + + + + + | Height | - | - | | + + + + + | Body Mass Index | 36.14 | 09/03/2018 12:49 PM | | | [...] documented as of this encounter Progress Notes Yosi Nunez MD - 09/22/2018 6:38 PM PSTFormatting of this note might be differe nt from the original. Hematology/Oncology Progress Note [facility] [place] Pt. Name/Age/: Yamilet Romo Greta 68 y.o. 1950 Med. Record Number: [id number] Date of admission: 09/16/2018 The patient's primary care provider is Maude Means MD. Identifying Statement: Yamilet Hernandes is a 68 y.o. female from [address] [place] [address] with Stage IIA, ER-positive RIGHT breast cancer, status post breast cons erving surgery. The patient chart and medications were reviewed in detail and the patient was seen and exam ined. History of Present Illnesses, their Current Assessments and Plans: Problem List Breast cancer Overview ACTIVE DIAGNOSIS: [id number], Stage IIA, ER-positive, Ki-67 positive, OR-negative, Her-2/n eu negative RIGHT breast cancer, status post breast conserving therapy. 1. Presentation in May, with palpable Right breast mass. 2. Bilateral screening mammography at [facility]; 2 cm neodensity i n the upper outer quadrant of the right breast. 3. Right Breast diagnostic mammography and Right breast ultrasound July 15, 2018; 21 x 19 x 25 cm mass in the upper outer quadrant of the right breast. 4. RIGHT breast upper outer quadrant image guided biopsy (JANE Hawkins) on July 28, 2018; Specimen # [id number] (Ana Ferreira); Grade 3 invasive ductal carcinoma with signet ring f eatures, without associated DCIS or LVI. ER 100%, OR negative at 0%, Ki-67 positive 39%, Her -2/savanna negative by FISH. 5. Right partial mastectomy with sentinel lymph node biopsy August 05, 2018 (JANE Lucio). Specimen # [id number] (Ana Ferreira): Invasive carcinoma with signet ring features, grade III, without associated DCIS or LVI, 2.3 cm in diameter, without regionally metastatic disea se in a single right axillary sentinel lymph node. Repeat analysis: Estrogen Receptor positi ve at 75%, progesterone receptor negative at 0%, Ki-67 positive at 50%. 6. Family history of breast cancer in both parents. 7. Presentation at the [facility] Conference, August, with recommendations for Oncotype DX testing of the partial mastectomy specimen and germline testing for comprehensive HBOC syndromes. Current Assessment & Plan I met with Yamilet Hernandes and her , Bhavesh, on 09/16/2018, referred by [address] [place] [address] for evaluation and management of S tage IIA, ER-positive RIGHT breast cancer status post breast conserving surgery. We reviewed her presentation with a palpable right breast mass, her imaging studies confirm ing a suspicious neodensity in the right upper outer quadrant, biopsy confirming high grade ER-positive, OR-negative, Ki-67 positive, Her-2/savanna negative breast cancer, and her successf ul right breast conserving surgery by Dr. Orville Lucio. We reviewed her very unique family history of invasive breast cancer in both of her parents . We reviewed her medical history for osteoporosis (DEXA scan last performed 10/10/2017) and compression fractures at T11, T12 and L1. We reviewed the recommendations from the [facility] Lily thacker on September 02, 2018 with recommendations for Oncotype DX testing of the partial maste ctomy specimen and germline testing for comprehensive HBOC syndromes We discussed the implications for additional testing. If HBOC syndrome testing is positive, then the patient may consider proceeding with elective double mastectomy and bilateral ooph orectomy. Double mastectomy would obviate the need for adjuvant radiation therapy. Oncotype DX testing will inform the decision to use adjuvant chemotherapy or not. If Oncotype DX scor e is 25 or less, then adjuvant chemotherapy would not be indicated. If Oncotype Dx score is 26 or greater, then the patient should be offered an adjuvant chemotherapy regimen. Since neither HBOC syndrome testing or Oncotype DX testing is currently available, I will m eet with Yamilet Hernandes on September 24, 2018 for follow-up and a more informed discu ssion. Review of Systems: Constitutional: low fatigue - improving. Denies high fevers, shaking chills, anorexia, naus ea, vomiting, weight loss, or night sweats. Appetite without changes. Ear, Nose, Mouth, Throat: Denies odynophagia or tinnitus. Ongoing minor dysphagia - monitor ed. Cardiovascular: Denies shortness of breath, dyspnea on exertion, chest pain, palpitations o r orthopnea. Respiratory: Seasonal cough. Denies hemoptysis or sputum production. Gastrointestinal: Denies abdominal pain, constipation, diarrhea, melena, or bright red bloo d per rectum. Genitourinary: Denies hematuria or dysuria. Musculoskeletal: Generalized joint pain - ongoing. Denies tenderness. Neurologic: History of headache - migraines; ongoing. Denies visual changes or numbness/tin gling of the extremities. Endocrine: Positive for peripheral edema in the R LE r/t previous surgeries. Denies heat/co ld intolerance. Hematologic: Denies spontaneous bruising or bleeding. Bruises easily. Integumentary: Denies rash, wounds or other skin concerns. Pain: Denies pain. ROS otherwise negative. Note: Pt here for consult with Dr. Nunez. My chart: Declined. __0_, Para_0__, AB__0_, Miscarraige_0__ Age first _0__, Length of ____0 Menarche age _hysterectomy in 30's__, LMP Menopause age____ Hx HRT _short term use i n early 90's. Hx of hormonal control use Last mmg , Last pap smear Review of systems as above otherwise negative Scheduled Medications: Current Outpatient Prescriptions Medication Sig Dispense Refill acetaminophen (TYLENOL) 325 mg tablet Take 650 mg by mouth every 4 hours as needed for Pain. alendronate (FOSAMAX) 70 mg tablet Take 70 mg by mouth every 7 days. apixaban (ELIQUIS) 5 mg tablet Take 1 tablet by mouth 2 times daily. 60 tablet 1 Woaygmw-Lclwxzkfredbs-Zxqrudun (EXCEDRIN PO) Take 250 mg by mouth [...] nightly. No current facility-administered medications for this encounter. Allergies: Allergy: Allergies Allergen Reactions Penicillins Rash Shellfish Rash Sulfa Antibiotics Rash Aspirin History of colitis Azathioprine Nausea And Vomiting Azithromycin Nausea And Vomiting Celecoxib Codeine Nausea And Vomiting Erythromycin Nausea And Vomiting Gabapentin Hydrocodone Nausea And Vomiting Ibuprofen Meloxicam Mesalamine Orphenadrine Oxycodone Nausea And Vomiting Fish Oil Rash Aka Glucosamine Past Medical and Surgical History, Social History and Problems: Past Medical History: Diagnosis Date A-fib (HCC) Breast cancer (HCC) Discitis Intestinal disease Migraine Osteoarthritis Ulcerative colitis (HCC) Past Surgical History: Procedure Laterality Date APPENDECTOMY BREAST BIOPSY Right 07/28/2018 Procedure: US GUIDED BREAST BIOPSY RIGHT - Location: [facility] EXTERNAL IMAGING EGD AND COLONOSCOPY N/A 01/31/2016 Procedure: EGD / COLONOSCOPY; Surgeon: Brett Wing MD; Location: [facility] MEDICAL PROCEDUR E UNIT FOOT SURGERY Right 2002, 2003, 2005 HYSTERECTOMY, TOTAL ABDOMINAL KNEE ARTHROSCOPY Right 1985 KNEE ARTHROSCOPY Left 1989 OVARY REMOVAL Bilateral 1991 TONSILLECTOMY TOTAL KNEE ARTHROPLASTY Social History Social History Marital status: Spouse name: Bhavesh Number of children: N/A Years of education: N/A Occupational History Not on file. Social History Main Topics Smoking status: Never Smoker Smokeless tobacco: Never Used Alcohol use No Drug use: No Sexual activity: Yes Other Topics Concern Not on file Social History Narrative No narrative on file Patient Active Problem List Diagnosis Discitis Atrial fibrillation with RVR Ulcerative colitis without complications Hyponatremia Cough Dysphagia Schatzki's ring of distal esophagus Spondylolisthesis of lumbar region Foraminal stenosis of lumbar region Other idiopathic scoliosis, lumbar region Lumbar facet arthropathy Postural deformity Thoracic kyphosis Breast cancer Family History Problem Relation Age of Onset Heart failure Mother Premature CHD Mother High blood pressure Mother Breast cancer Mother Arthritis Father Cancer Father Diabetes Father Breast cancer Father Liver disease Brother Heart arrhythmias Brother Arthritis Maternal Grandmother Heart attack Maternal Grandfather Arthritis Paternal Grandmother Diabetes Paternal Grandmother Congenital Heart Disease Paternal Grandmother Cancer Paternal Grandfather prostate Stroke Paternal Grandfather Stomach cancer Maternal Aunt Breast cancer Other Objectives: Temp: 37.1 C (98.8 F) BP: 131/79 Pulse: 81 Resp: 18 SpO2: 100 % on Min/Max Temp past 24 hours:No Data Recorded No intake or output data in the 24 hours ending 09/22/18 1838 Wt. Admission: Weight: 99.6 kg (219 lb 9.3 oz) Wt. Current: Weight: 99.6 kg (219 lb 9.3 oz) Wt Readings from Last 3 Encounters: 09/16/18 99.6 kg (219 lb 9.3 oz) 09/03/18 99.3 kg (218 lb 14.7 oz) 06/02/18 84.8 kg (187 lb) Body mass index is 36.14 kg/m. Physical Exam: General: The patient is alert and oriented. No acute distress. Eyes: Conjunctiva clear. Sclera anicteric. ENMT: Oropharynx fee of lesions, mucous membranes moist. Cardiovascular: Regular rate and rhythm, no rubs, gallops, or murmurs. Lungs: Clear to auscultation and percussion. Chest: Clinical breast exam was not performed, having been recently examined by Dr. Marlen Henry in Radiation Oncology on September 03, 2018. Extremities: Nontender, no erythema, no edema. Skin: No rashes, bruising, or petechiae. Neurological: Cranial nerves are intact. Normal sensory and motor function, No focal defi cits noted. Muscular/Skeletal: No acute bony tenderness. No evidence of sarcopenia. Psychiatric: Normal mood and affect. ECOG Performance Status [x] 0 [] 1 [] 2 []3 [] 4 ECOG PERFORMANCE STATUS* Grade ECOG Karnofsky 0 Fully active, able to carry on all pre-disease performance without restriction. 90 - 100 1 Restricted in physically strenuous activity but ambulatory and able to carry out work of a light or sedentary nature, e.g., light house work, office work 70 - 80 2 Ambulatory and capable of all selfcare but unable to carry out any work activ ities. Up and about more than 50% of waking hours 50 - 60 3 Capable of only limited selfcare, confined to bed or chair more than 50% of w aking hours 30 - 40 4 Completely disabled. Cannot carry on any selfcare. Totally confined to bed or chair 10 - 20 * As published in Am. J. Clin. Oncol.: Angel Carlson., Morena, RGloria., Vinay Goncalves., Tawnya Bearden., Bhavik, T.Jayashree., Maciel FloresT., Joaquim Louise.: Toxicity And Response Criteria Of The Eastern Cooperative Oncology Group. Am J Clin Onc ol 5:649-655, 1981. The ECOG Performance Status is in the public domain therefore available for public use. To duplicate the scale, please cite the reference above and credit the Eastern Cooperative Onco logy Group, Yosi Roy M.D., Group Chair Diagnostic studies: Available data and images were reviewed personally. See reports. Significant results and findings are addressed here or in the Assessment and Plan. Pharmacovigilance: Palliative Care: Procedure: Yosi Nunez MD Portions of this chart may have been created with [employer] voice recognition software. Occasi onal wrong-word or sound-alike substitutions may have occurred due to the inherent jack itations of voice recognition software. Please read the chart carefully and recognize, using context, where these substitutions have occurred. elson, Yosi Matos RN - 09/16/2018 1:57 PM PSTREVIEW OF SY STEMS Constitutional: low fatigue - improving. Denies high fevers, shaking chills, anorexia, naus ea, vomiting, weight loss, or night sweats. Appetite without changes. Ear, Nose, Mouth, Throat: Denies odynophagia or tinnitus. Ongoing minor dysphagia - monitor ed. Cardiovascular: Denies shortness of breath, dyspnea on exertion, chest pain, palpitations o r orthopnea. Respiratory: Seasonal cough. Denies hemoptysis or sputum production. Gastrointestinal: Denies abdominal pain, constipation, diarrhea, melena, or bright red bloo d per rectum. Genitourinary: Denies hematuria or dysuria. Musculoskeletal: Generalized joint pain - ongoing. Denies tenderness. Neurologic: History of headache - migraines; ongoing. Denies visual changes or numbness/tin gling of the extremities. Endocrine: Positive for peripheral edema in the R LE r/t previous surgeries. Denies heat/co ld intolerance. Hematologic: Denies spontaneous bruising or bleeding. Bruises easily. Integumentary: Denies rash, wounds or other skin concerns. Pain: Denies pain. ROS otherwise negative. Note: Pt here for consult with Dr. Nunez. My chart: Declined. __0_, Para_0__, AB__0_, Miscarraige_0__ Age first _0__, Length of ____0 Menarche age _hysterectomy in 30's__, LMP Menopause age____ Hx HRT _short term use i n early 90's. Hx of hormonal control use Last mmg , Last pap smear documented in this e ncounter Plan of Treatment +--------+ + + + + | Date | Type | Specialty | Care Team | Description | +--------+ + + + + | 06/24/ | Appointment | Radiation Oncology | Jojo Henry | | | 2019 | | | MD [address] | | | | | | [place], [place] | | | | | | [address] | | | | | | | | +--------+ + + + + documented as of this encounter Procedures + +--------+ + + + | Procedure Name | Priori | Date/Time | Associated Diagnosis | Comments | | | ty | | | | + +--------+ + + + | LABS - EXTERNAL SCAN | | 09/16/2018 | | Results for this | | | | 12:00 AM | | procedure are in the | | | | PST | | results section. | + +--------+ + + + | LABS - EXTERNAL SCAN | | 09/16/2018 | | Results for this | | | | 12:00 AM | | procedure are in the | | | | PST | | results section. | + +--------+ + + + | LABS - EXTERNAL SCAN | | 09/16/2018 | | Results for this | | | | 12:00 AM | | procedure are in the | | | | PST | | results section. | + +--------+ + + + | PATHOLOGY - EXTERNAL | | 09/08/2018 | | Results for this | | SCAN | | 12:00 AM | | procedure are in the | | | | PST | | results section. | + +--------+ + + + | IMAGING REPORT - | | 08/05/2018 | | Results for this | | EXTERNAL SCAN | | 12:00 AM | | procedure are in the | | | | PDT | | results section. | + +--------+ + + + | IMAGING REPORT - | | 08/05/2018 | | Results for this | | EXTERNAL SCAN | | 12:00 AM | | [...] | + +--------+ + + + | IMAGING REPORT - | | 08/04/2018 | | Results for this | | EXTERNAL SCAN | | 12:00 AM | | procedure are in the | | | | PDT | | results section. | + +--------+ + + + | IMAGING REPORT - | | 08/04/2018 | | Results for this | | EXTERNAL SCAN | | 12:00 AM | | procedure are in the | | | | PDT | | results section. | + +--------+ + + + | ECG - EXTERNAL SCAN | | 08/04/2018 | | Results for this | | | | 12:00 AM | | procedure are in the | | | | PDT | | results section. | + +--------+ + + + | LABS - EXTERNAL SCAN | | 08/01/2018 | | Results for this | | | | 12:00 AM | | procedure are in the | | | | PDT | | results section. | + +--------+ + + + | PATHOLOGY - EXTERNAL | | 07/28/2018 | | Results for this | | SCAN | | 12:00 AM | | procedure are in the | | | | PDT | | results section. | + +--------+ + + + | PATHOLOGY - EXTERNAL | | 07/28/2018 | | Results for this | | SCAN | | 12:00 AM | | procedure are in the | | | | PDT | | results section. | + +--------+ + + + | IMAGING REPORT - | | 07/15/2018 | | Results for this | | EXTERNAL SCAN | | 12:00 AM | | procedure are in the | | | | PDT | | results section. | + +--------+ + + + | IMAGING REPORT - | | 07/15/2018 | | Results for this | | EXTERNAL SCAN | | 12:00 AM | | procedure are in the | | | | PDT | | results section. | + +--------+ + + + | IMAGING REPORT - | | 06/18/2018 | | Results for this | | EXTERNAL SCAN | | 12:00 AM | | procedure are in the | | | | PDT | | results section. | + +--------+ + + + | IMAGING REPORT - | | 06/18/2018 | | Results for this | | EXTERNAL SCAN | | 12:00 AM | | procedure are in the | | | | PDT | | results section. | + +--------+ + + + documented in this encounter Results LABS - EXTERNAL SCAN (09/16/2018 12:00 AM PST) + + + | Narrative | Performed At | + + + | Ordered by an | | | unspecified provider. | | + + + LABS - EXTERNAL SCAN (09/16/2018 12:00 AM PST) + + + | Narrative | Performed At | + + + | Ordered by an | | | unspecified provider. | | + + + LABS - EXTERNAL SCAN (09/16/2018 12:00 AM PST) + + + | Narrative | Performed At | + + + | Ordered by an | | | unspecified provider. | | + + + PATHOLOGY - EXTERNAL SCAN (09/08/2018 12:00 AM PST) + + + | Narrative | Performed At | + + + | Ordered by an | | | unspecified provider. | | + + + PATHOLOGY - EXTERNAL SCAN (08/05/2018 12:00 AM PDT) + + + | Narrative | Performed At | + + + | Ordered by an | | | unspecified provider. | | + + + PATHOLOGY - EXTERNAL SCAN (08/05/2018 12:00 AM PDT) + + + | Narrative | Performed At | + + + | Ordered by an | | | unspecified provider. | | + + + PATHOLOGY - EXTERNAL SCAN (08/05/2018 12:00 AM PDT) + + + | Narrative | Performed At | + + + | Ordered by an | | | unspecified provider. | | + + + IMAGING REPORT - EXTERNAL SCAN (08/05/2018 12:00 AM PDT) + + + | Narrative | Performed At | + + + | Ordered by an | | | unspecified provider. | | + + + IMAGING REPORT - EXTERNAL SCAN (08/05/2018 12:00 AM PDT) + + + | Narrative | Performed At | + + + | Ordered by an | | | unspecified provider. | | + + + IMAGING REPORT - EXTERNAL SCAN (08/04/2018 12:00 AM PDT) + + + | Narrative | Performed At | + + + | Ordered by an | | | unspecified provider. | | + + + IMAGING REPORT - EXTERNAL SCAN (08/04/2018 12:00 AM PDT) + + + | Narrative | Performed At | + + + | Ordered by an | | | unspecified provider. | | + + + ECG - EXTERNAL SCAN (08/04/2018 12:00 AM PDT) + + + | Narrative | Performed At | + + + | Ordered by an | | | unspecified provider. | | + + + LABS - EXTERNAL SCAN (08/01/2018 12:00 AM PDT) + + + | Narrative | Performed At | + + + | Ordered by an | | | unspecified provider. | | + + + PATHOLOGY - EXTERNAL SCAN (07/28/2018 12:00 AM PDT) + + + | Narrative | Performed At | + + + | Ordered by an | | | unspecified provider. | | + + + PATHOLOGY - EXTERNAL SCAN (07/28/2018 12:00 AM PDT) + + + | Narrative | Performed At | + + + | Ordered by an | | | unspecified provider. | | + + + IMAGING REPORT - EXTERNAL SCAN (07/15/2018 12:00 AM PDT) + + + | Narrative | Performed At | + + + | Ordered by an | | | unspecified provider. | | + + + IMAGING REPORT - EXTERNAL SCAN (07/15/2018 12:00 AM PDT) + + + | Narrative | Performed At | + + + | Ordered by an | | | unspecified provider. | | + + + IMAGING REPORT - EXTERNAL SCAN (06/18/2018 12:00 AM PDT) + + + | Narrative | Performed At | + + + | Ordered by an | | | unspecified provider. | | + + + IMAGING REPORT - EXTERNAL SCAN (06/18/2018 12:00 AM PDT) + + + | [...]
--- OUTSIDE RECORDS SUMMARY | ~2019-11-01 | XMS | Encounter Summary ---
Demographics + + + | Address | [address] | | | [place] [address] | + + + | Home Phone | | + + + | Preferred Language | Unknown | + + + | Marital Status | | + + + | Latter-Day Affiliation | 1001 | + + + | Race | Unknown | + + + | Ethnic Group | Unknown | + + + Author + + + | Author | [facility] | | | and Christianana | + + + | Organization | [facility] | | | and Christianana [...] [place], [place] | | | | | [address] | | + + + + + Care Team Providers + +------+ + | Care Garment Alteration Examiner Name | Role | Phone | + +------+ + | Maude Means MD | PCP | | + +------+ + Encounter Details +--------+ + + + + | Date | Type | Department | Care Team | Description | +--------+ + + + + | 09/30/ | Documentati | [facility] | Juanita Key | | | 2018 | on | [facility] | J, RN | | | | | ONCOLOGY CLINIC [address] | | | | | | [address] | | | | | | [place] [address] | | | | | | [phone] | | | +--------+ + + + [...] encounter Progress Notes Juanita Key RN - 09/30/2018 11:44 AM PSTPatient and her at clinic for CT S IM today. They were given a start of treatment date and schedule; accompanied to [facility] to in itiate request for lodging. 11: 45 AM PSTdocumented in this encounter Plan of Treatment [...] [place] | | | | | | [id number] | | | | | | | | +--------+ + + + + documented as of this encounter Visit Diagnoses Not on filedocumented in this encounter"
--- OUTSIDE RECORDS SUMMARY | ~2019-11-01 | XMS | Encounter Summary ---
Demographics + + + | Address | [address] | | | [place] [address] | + + + | Home Phone | | + + + | Preferred Language | Unknown | + + + | Marital Status | | + + + | Restoration Affiliation | 1001 | + + + | Race | Unknown | + + + | Ethnic Group | Unknown | + + + Author + + + | Author | [facility] | | | and Christianana | + + + | Organization | [facility] | | | and [...] [place], [place] | | | | | [address] | | + + + + + Care Team Providers + +------+ + | Care Spreader Box Operator Name | Role | Phone | [...] Kenny Pina | | | | | [phone] | [place] [address] | | +--------+ + + + + [...] | | | | | [facility] [place] | | | | | | [address] | | | | | | | | +--------+ + + + + documented as of this encounter Procedures + +--------+ + + + | Procedure Name | Priori | Date/Time | Associated Diagnosis | Comments | | | ty | | | | + +--------+ + + + | MRI LUMBAR SPINE WO | Routin | 10/07/2017 | | Results for this | | CONTRAST | e | 3:00 PM | | procedure are in the | | | | PST | | results section. | + +--------+ + + + documented in this encounter Results MRI Lumbar Spine wo Contrast (10/07/2017 3:00 PM PST) + + | Specimen | + + | | + + + + + | Narrative | Performed At | + + + | External films | [facility] | | for comparison only - no result from [place]. | | + + + + +---------+ + + | Performing | Address | City/State/Zipcode | Phone Number | | Organization | | | | + +---------+ + + | [facility] | | | | + +---------+ + + documented in this encounter Visit Diagnoses Not on filedocumented in this encounter"
--- OUTSIDE RECORDS SUMMARY | ~2019-11-01 | XMS | Encounter Summary ---
Demographics + + + | Address | [address] | | | [place] [address] | + + + | Home Phone | | + + + | Preferred Language | Unknown | + + + | Marital Status | | + + + | Roman Catholic Affiliation | 1001 | + + + | Race | Unknown | + + + | Ethnic Group | Unknown | + + + Author + + + | Author | [facility] | | | and Christianana | + + + | Organization | [facility] | | [...] [place] | | | | | [address] | | + + + + + Care Team Providers + +------+ + | Care Wharf Helper Name | Role | Phone | + +------+ + | Puneet Donovan MD | PCP | | + +------+ + Reason for Visit +--------+ + | Reason | Comments | +--------+ + | Other | flex sig | +--------+ + Encounter Details +--------+ + + + + | Date | Type | Department | Care Team | Description | +--------+ + + + + | 02/28/ | Telephone | [facility] | Brett Wing MD | Other (flex sig) | | 2016 | | GASTROENTEROLOGY | [address] [place] | | | | | [address] [place] | [address] [place], [place] | | | | | [address] [place], [place] | [address] | | | | | [address] | | | | | | [phone] | | | +--------+ + + + [...] [place] | | | | | | [place] | | | | | | [address] | | | | | | | | +--------+ + + + + documented as of this encounter Visit Diagnoses Not on filedocumented in this encounter"
--- OUTSIDE RECORDS SUMMARY | ~2019-11-01 | XMS | Encounter Summary ---
Demographics + + + | Address | [address] | | | [place] [address] | + + + | Home Phone | | + + + | Preferred Language | Unknown | + + + | Marital Status | | + + + | Mandaen Affiliation | 1001 | + + + | Race | Unknown | + + + | Ethnic Group | Unknown | + + + Author + + + | Author | [facility] | | | and [place] | + + + | Organization | [facility] | | | and [...] [place], [place] | | | | | [address] | | + + + + + Care Team Providers + +------+ + | Care Research Study Assistant Name | Role | Phone | + +------+ + PCP | Unavailable | + +------+ + Encounter Details +--------+ + + + + | Date | Type | Department | Care Team | Description | +--------+ + + + + | 06/02/ | [facility] | [facility] | Brett Wing MD | | | 1997 | Encounter | MED CTR GENERIC OP | [address] | | | | | CONV DEPT [address] | [address] [place] | | | | | [place], | [address] | | | | | [place] [address] | | | | | | [phone] | | | +--------+ + + + [...] [place] | | | | | | [address] | | | | | | | | +--------+ + + + + documented as of this encounter Visit Diagnoses Not on filedocumented in this encounter"
--- OUTSIDE RECORDS SUMMARY | ~2019-11-01 | XMS | Encounter Summary ---
Demographics + + + | Address | [address] | | | [place] [address] | + + + | Home Phone | | + + + | Preferred Language | Unknown | + + + | Marital Status | | + + + | Church Affiliation | 1001 | + + + | Race | Unknown | + + + | Ethnic Group | Unknown | + + + Author + + + | Author | [facility] | | | and Christianana | + + + | Organization | [facility] | | | and [place]ana | [...] | [place] | | | | | [address] | | + + + + + Care Team Providers + +------+ + | Care Surgical Supply Assistant Name | Role | Phone | + +------+ + | Puneet Donovan MD | PCP | | + +------+ + Reason for Visit + + + | Reason | Comments | + + + | Follow-up | colonoscopy 01/30 | + + + Follow Up (Routine) +--------+--------+ + + + + | Status | Reason | Specialty | Diagnoses / | Referred By | Referred To | | | | | Procedures | Contact | Contact | +--------+--------+ + + + + | Closed | | Gastroenterol | Diagnoses | [place], | [facility] | | | | ogy | colonoscopy | Puneet | Gastroenterol | | | | | screening | MD Garth | ogy [address] | | | | | follow up | [address] [place] | | | | | | St | [address] [place] | | | | | | [place], | [place] | | | | | | [place] [address] | [address] | | | | | | Phone: | Phone: | | | | | | [phone] | [phone] | | | | | | Fax: | Fax: | | | | | | [phone] | [phone] | +--------+--------+ + + + + Encounter Details +--------+---------+ + + + | Date | Type | Department | Care Team | Description | +--------+---------+ + + + | 02/21/ | Office | [facility] | Brett Wing MD | Ulcerative | | 2016 | Visit | GASTROENTEROLOGY | [address] [place] | rectosigmoiditis | | | | [address] [place] | [address] [place], [place] | without complication | | | | [address] [place], [place] | [address] | ([facility]) (Primary Dx) | | | | [address] | | | | | | [phone] | | | +--------+---------+ + + + [...] + + + | Blood Pressure | 86/58 | 02/22/2016 1:50 PM | | | | | PDT | | + + + + + | Pulse | 90 | 02/22/2016 1:50 PM | | | | | PDT | | + + + + + | Temperature | - | - | | + + + + + | Respiratory Rate | 16 | 02/22/2016 1:50 PM | | | | | PDT | | + + + + + | Oxygen Saturation | - | - | | + + + + + | Inhaled Oxygen | - | - | | | Concentration | | | | + + + + + | Weight | 86.4 kg (190 lb 8 | 02/22/2016 1:50 PM | | | | oz) | PDT | | + + + + + | Height | 165.1 cm (5' 5") | 02/22/2016 1:50 PM | | | | | PDT | | + + + + + | Body Mass Index | 31.7 | 02/22/2016 1:50 PM | | | | | PDT [...] encounter Progress Notes Brett Wing MD - 02/22/2016 2:24 PM PDT Subjective: Patient ID: Yamilet Hernandes is a 66 y.o. female. The patient returns to discuss treatment of ulcerative colitis. The patient has a long history of ulcerative colitis. She has not been seen by this office since 2005. She was recently hospitalized atrial fibrillation with rapid ventricular respo nse. She had noticed increasing stool frequency and occasional bleeding prior to admission. However she had been on long-term antibiotics for total knee replacement and discitis. Ad dition the patient complained of dysphagia. Upper endoscopy was performed along with colono scopy and dilation of a Schatzki's ring occurred. There is mild to moderate inflammatory ch anges of the left colon. Stool studies are negative for C. diff. Patient in the past has h ad nausea and vomiting with azathioprine and intolerance to mesalamine Asacol sulfasalazine. As such treatment of left-sided colitis may be problematic as it was explained to the tara ent that long-term steroid treatment and she is not interested in pursuing the same. Since the patient's discharge the patient is having one to two formed stools a day. She's noticed no blood in the stool. Patient denies any abdominal pain She's gradually increasing the fiber in her diet she is on dilaudid for pain and when she takes Dilautid has a tendenc y toward constipation for which she eats prunes. The patient takes potassium and magnesium and an H2 vivian for her stomach. Her metoprolol dose is being decreased given her symptom atic relative hypotension. Patient denies any dysphagia or odynophagia and has had a gradua l weight increase since her discharge It was explained to the patient and the patient's that the goal of therapy for infl ammatory bowel disease is healing of mucosal inflammatory changes rather than simply symptom control. They concur and as such of inflammatory changes continue then patient would be ap propriate candidate for therapy with respect to the same HPI Filed Vitals: 02/22/16 1350 BP: 86/58 Pulse: 90 Resp: 16 PainSc: 0 - No pain Allergies Allergen Reactions Penicillins Rash Shellfish Rash Sulfa Antibiotics Rash Aspirin History of colitis Azathioprine Nausea And Vomiting Azithromycin Nausea And Vomiting Celecoxib Codeine Nausea And Vomiting Erythromycin Nausea And Vomiting Fish Oil Gabapentin Hydrocodone Nausea And Vomiting Ibuprofen Meloxicam Mesalamine Orphenadrine Oxycodone Nausea And Vomiting Past Medical History Diagnosis Date Ulcerative colitis (HCC) Osteoarthritis Discitis Past Surgical History Procedure Laterality Date Hysterectomy, total abdominal Foot surgery Tonsillectomy Appendectomy Total knee arthroplasty Egd and colonoscopy N/A 01/31/2016 Procedure: EGD / COLONOSCOPY; Surgeon: Brett Wing MD; Location: [facility] Family History Problem Relation Age of Onset Heart failure Mother Premature CHD Mother History Social History Marital Status: Spouse Name: N/A Number of Children: N/A Years of Education: N/A Social History Main Topics Smoking status: Never Smoker Smokeless tobacco: Not on file Alcohol Use: No Drug Use: No Sexual Activity: Not on file Other Topics Concern None Social History Narrative Review of Systems Other than listed above not queried Objective: Physical Exam I'll signs are noted patient appears healthy oriented 4 cranial nerves and peripheral ner ves grossly intact ambulates with cane Assessment: History of left-sided colitis questionable ulcerative colitis or perhaps antibiotic associa raman colitis although stool studies negative, patient without symptoms with respect to the sa me Gastritis with dysphagia treated with dilation of Schatzki's ring currently on Pepcid asymp tomatic Other medical problems being addressed by primary care physician physician Plan: It was recommended to the patient and patient's that she undergo a flexible sigmoid oscopy to look for inflammatory changes of the left colon and if they have resolved no treat ment would be indicated. If they are still present and perhaps from formulation of sulfasal azine or mesalamine could be tried I would be hesitant to treat asymptomatic left-sided coli tis with a biologic agent, however realizing that healing mucosal disease is desirable rathe r than simply symptom control Portions of this report were transcribed using voice recognition software. Every effort wa s made to ensure accuracy; however, inadvertent computerized director oracle database errors may be pre sent. 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
--- OUTSIDE RECORDS SUMMARY | ~2019-11-01 | XMS | Encounter Summary ---
Demographics + + + | Address | [address] | | | [place] [address] | + + + | Home Phone [...] | Author | [facility] | | | and Christianana | + + + | Organization | [facility] [...] [place] | | | | | [address] | | + + + + + Care Team Providers + +------+ + | Care Management Engineer Name | Role | Phone | + +------+ + | Maude Means MD | PCP | | + +------+ + Encounter Details +--------+ + + + + | Date | Type | Department | Care Team | Description | +--------+ + + + + | 09/25/ | Hospital | [facility] | Jojo Henry | | | 2018 | Encounter | MED CTR RADIATION | M, MD [address] | | | | | ONCOLOGY [address] [place], [place] | | | | | [place], | [address] | | | | | [place] [address] | | | | | | [phone] | | | +--------+ + + + [...] [place] | | | | | | [address] | | | | | | | | +--------+ + + + + documented as of this encounter Visit Diagnoses Not on filedocumented in this encounter"
--- OUTSIDE RECORDS SUMMARY | ~2019-11-01 | XMS | Encounter Summary ---
Demographics + + + | Address | [address] | | | [place] [address] | + + + | Home Phone | | + + + | Preferred Language | Unknown | + + + | Marital Status | | + + + | Voodoo Affiliation | 1001 | + + + | Race | Unknown | + + + | Ethnic Group | Unknown | + + + Author + + + | Author | [facility] | | | and Christianana | + + + | Organization | [facility] | | | and [...] | [place] | | | | | [address] | | + + + + + Care Team Providers + +------+ + | Care Picker Machine Operator Name | Role | Phone | + +------+ + | Maude Means MD | PCP | | + +------+ + Reason for Visit + + + | Reason | Comments | + + + | Follow-up | Physical Therapy | + + + Encounter Details +--------+---------+ + + + | Date | Type | Department | Care Team | Description | +--------+---------+ + + + | 06/02/ | Office | [facility] | Yury Hand, | Foraminal stenosis | | 2018 | Visit | PHYSIATRY [address] | PA-C [address] | of lumbar region | | | | [place], | [address] [place] | (Primary Dx); | | | | [place] [address] | [place] [address] | Spondylolisthesis of | | | | [phone] | [phone] | lumbar region; | | | | | | Other idiopathic | | | | | | scoliosis, lumbar | | | | | | region; Lumbar facet | | | | | | arthropathy (HCC); | | | | | | Postural deformity; | | | | | | Other [...] + + + | Blood Pressure | 94/64 | 06/02/2018 3:33 PM | | | | | PDT | | + + + + + | Pulse | 59 | 06/02/2018 3:33 PM | | | | | PDT [...] Weight | 84.8 kg (187 lb) | 06/02/2018 3:33 PM | | | | | PDT | | + + + + + | Height | 165.1 cm (5' 5") | 06/02/2018 3:33 PM | | | | | PDT | | + + + + + | Body Mass Index | 31.12 | 06/02/2018 3:33 PM | | | | | PDT [...] of this encounter Patient Instructions Patient Instructions Yury Hand PA-C - 06/02/2018 3:30 PM PDTFormatting of this note m ight be different from the original. Follow up on an as needed basis. ------- Common Spine and Disk Problems The most common serious back problemshappen when disks tear, bulge, or rupture. In such c ases, an injured disk can no longer cushion the vertebrae and absorb shock. As a result, the rest of your spine may also weaken. This can lead to pain, stiffness, and other symptoms. Torn annulus Contained herniated disk Extruded herniated disk Torn annulus. A sudden movement may cause a tiny tear in an annulus. Nearby ligaments ma y stretch. Contained herniated disk. As a disk wears out, the nucleus may bulge into the annulus an d press on nerves. Extruded herniateddisk. When a disk ruptures, its nucleus can squeeze out and irritate a nerve. Arthritis Instability Spondylolisthesis Arthritis. As disks wear out over time, bone spurs form. These growths can irritate nerv es and inflame facets. Instability. As a disk stretches, the vertebrae slip back and forth. This can put pressu re on the annulus. Spondylolisthesis.Listhesis is a condition in which one vertebra has moved forward or backward, in relation to the one above or below it. Thiscauses a crack (stress fracture) i n the areas that link the vertebrae together. This may put pressure on the annulus, stretch the disk, and irritate nerves. Date Last Reviewed: 08/07/201519998866-0548 [employer]. [address] [place] [address]. All righ ts reserved. This information is not intended as a substitute for professional medical care. Always follow your healthcare professional's instructions. documented in this encounter Progress Notes Yury Hand PA-C - 06/02/2018 3:30 PM PDTFormatting of this note might be different fro m the original. [address] [facility] [place] [address] [place] [id number] FAX: PHYSICAL MEDICINE AND REHABILITATION H&P CHIEF COMPLAINT: Chief Complaint Patient presents with Follow-up Physical Therapy HISTORY OF PRESENT ILLNESS: Yamilet Hernandes s a 68 y.o. female [facility] for the complaint of low back pain that began 14 years ago after being injured at work due to lifting heavy objects. At last visit has recommended she attend physical therapy for low back pain. She reports that symptoms have improved, however a specific exercise and physical therapy causes left mid anterior rib pain. Otherwise tara ent is doing well. She has already seen neurosurgery, Dr. Lomax. They discussed surgical treatment options but recommended exhausting conservative treatment options prior to considering surgery. Yamilet Hernandes rates the low backpain as mild. The symptoms are intermittent. Kelli Hernandes describes the pain as sharp, tight [...] / COLONOSCOPY; Surgeon: Brett Wing MD; Location: [facility] [...] mouth 2 times daily. 60 tablet 1 Zpmkdyk-Onzvqkzhapeds-Vvjbkobt (EXCEDRIN PO) Take 250 mg by mouth [...] patient has insomnia. PHYSICAL EXAMINATION: Blood pressure 94/64, pulse 59, height 1.651 m (5' 5"), weight 84.8 [...] has no apparent deficits with short or chcf memory. She has appropriate fund of knowledge Cranial nerves appear grossly intact. Sensory exam: intact sensation bilateral lower extremities with subjective decreased sensat ion over right L5 dermatome REFLEX: RIGHT LEFT PATELLAR 2+ 2+ ACHILLES 2+ 2+ MUSCULOSKELETAL There is major palpable deformity of the spine. (scoliosis) Lumbar Spine: Straight leg raise and slump-sit are negative. Austyn's maneuver and imping ement testing were negative for any groin pain. There was no tenderness to palpation over the greater trochanters or sacral sulci. The patient localized the majority of the pain to the L5/S1 region, mild. Lumbar facet loading was negative. Strength testing showed 5/5 str ength throughout the lower extremities. The patient was able to heel and toe walk without d ifficulty. There was no redness, effusion, warmth or joint line tenderness in the knees or ankles. RADIOGRAPHIC REVIEW: Scoliosis xray completed on 12/2017 and MRI completed on 09/2017 were both reviewed persona lly by me , I concur with the results as reported by the Radiologist. Lumbar MRI 09/2017: L1-L2: broad based disc bulge, mild central canal narrowing. Moderate Bilateral neural fo raminal stenosis and facet hypertrophy. Edematous changes in the endplates. L2-L3: Broad-based disc bulge, facet hypertrophy, mild to moderate central canal stenosis, mild bilateral neural foraminal stenosis. L3-L4: Broad-based Disc bulge causing mild central canal stenosis. L4-L5: Anterior listhesis, broad-based disc bulge and facet subluxation/hypertrophy causing mild central canal stenosis. L5-S1 no central canal stenosis or neural foraminal stenosis. Facet hypertrophy appreciate d, right greater than left IMPRESSION: 1. Foraminal stenosis of lumbar region 2. Spondylolisthesis of lumbar region 3. Other idiopathic scoliosis, lumbar region 4. Lumbar facet arthropathy (HCC) 5. Postural deformity 6. Other secondary kyphosis, thoracic region PLAN: 1) Today we discussed the patient's differential diagnosis with the likely primary issue be ing lumbar stenosis. Patient's description of symptoms, physical exam, and imaging suggest this diagnosis at this time. 2) I counseled patient on treatment options which included conservative self management usi ng OTC NSAIDs/Ice and heat packs, physical therapy, prescription medications, epidural stero id injection, as well as possible surgical intervention. 3) Imaging: As descibed above in radiology review. 4) The patient has had significant conservative care including medications (NSAIDS and narc otics), PT (multiple sessions over the years) and client care specialist. It appears to me that t he pain is primarily coming from Lumbar stenosis. Patient is responding very well to physic al therapy. I encouraged her to continue therapy as needed and then continue with home exer cise program indefinitely. 5) Patient will follow up with me on as-needed basis. 6) If current treatment plan is insufficient for symptom relief we could try TF MURIEL as th e next therapy option. I spent 30 minutes in visit with Yamilet Hernandes today with the majority of time sp ent counselling the patient on her diagnosis, options for her care, and coordinating her car e. Yury Hand PA-C - 06/02/2018 documented in this en counter Plan of Treatment +--------+ + + + + | Date | Type | Specialty | Care Team | Description | +--------+ + + + + | 06/24/ | Appointment | Radiation Oncology | Jojo Henry | | | 2019 | | | MD Unruly [address] | | | | | | [facility] [place] | | | | | | [address] | | | | | | | | +--------+ + + + + documented as of this encounter Visit Diagnoses + + | Diagnosis | + + | Foraminal stenosis of lumbar region - Primary Spinal stenosis, lumbar region, without | | neurogenic claudication | + + | Spondylolisthesis of lumbar region Acquired spondylolisthesis | + + | Other idiopathic scoliosis, lumbar region | + + | Lumbar facet arthropathy Lumbosacral spondylosis without myelopathy | + + | Postural deformity Congenital musculoskeletal deformity of spine | + + | Other secondary kyphosis, thoracic region | + + documented in this encounter
--- OUTSIDE RECORDS SUMMARY | ~2019-11-01 | XMS | Encounter Summary ---
Demographics + + + | Address | [address] | | | [place] [address] | + + + | Home Phone | | + + + | Preferred Language | Unknown | + + + | Marital Status | | + + + | Worship Affiliation | 1001 | + + + | Race | Unknown | + + + | Ethnic Group | Unknown | + + + Author + + + | Author | [facility] | | | and Christianana | + + + | Organization | [facility] | | | and Christianana [...] [place] | | | | | [address] | | + + + + + Care Team Providers + +------+ + | Care Diesel Maintenance Electrician Name | Role | Phone | + +------+ + PCP | Unavailable | + +------+ + Encounter Details +--------+ + + + + | Date | Type | Department | Care Team | Description | +--------+ + + + + | 01/03/ | Hospital | [facility] | Conversion | Diagnosis unknown | | 2016 | Encounter | CONVERSION DEP [address] | Transaction, | | | | | [address] | Provider Unknown | | | | | [place] | [phone] | | | | | [address] | | | | | | [phone] | | | +--------+ + + + [...] [place] | | | | | | [address] | | | | | | | | +--------+ + + + + documented as of this encounter Procedures + +--------+ + + + | Procedure Name | Priori | Date/Time | Associated Diagnosis | Comments | | | ty | | | | + +--------+ + + + | MRI LUMBAR SPINE W | Routin | 01/04/2016 | | Results for this | | WO CONTRAST | e | 11:29 AM | | procedure are in the | | | | PDT | | results section. | + +--------+ + + + documented in this encounter Results MRI Lumbar Spine w wo Contrast (01/04/2016 11:29 AM PDT) + + | Specimen | + + | | + + + + + | Narrative | Performed At | + + + | This is a non-reportable procedure without a radiologist report and | | | is used for image storage only | | + + + + + | Procedure Note | + + | Houston Lopez - 06/04/2019 5:59 PM PDT This is a non-reportable procedure | | without a radiologist report and isused for image storage only | + + documented in this encounter Visit Diagnoses + + | Diagnosis | + + | Diagnosis unknown Other unknown and unspecified cause of morbidity or mortality | + + documented in this encounter"
--- OUTSIDE RECORDS SUMMARY | ~2019-11-01 | XMS | Encounter Summary ---
Demographics + + + | Address | [address] | | | [place] [address] | + + + | Home Phone | | + + + | Preferred Language | Unknown | + + + | Marital Status | | + + + | Gnosticist Affiliation | 1001 | + + + | Race | Unknown | + + + | Ethnic Group | Unknown | + + + Author + + + | Author | [facility] | | | and Christianana | + + + | Organization | [facility] | | | and Christianana [...] | [place] | | | | | [address] | | + + + + + Care Team Providers + +------+ + | Care Linen Attendant Name | Role | Phone | + [...] + + | 08/28/ | Hospital | [facility] | Jojo Henry | Malignant neoplasm | | 2019 | Encounter | [facility] RAD[facility] | MD Jessica [address] | of upper-outer | | | | [facility] [address] [place], [place] | quadrant of right | | | | [place] | [address] | breast in female, | | | | [place] [address] | | estrogen receptor | | | | [phone] | | positive (HCC) | | | [...] Annual mammogram due in late May at [facility]. Follow-up with Dr. Nunez at [facility] as directed as well, next November 2019. [...] Gr opal 3, no LVI, ER 100%, LA 0%, Ki-67 39%, HER-2/savanna nonamplified. 08/05/2018 Surgery [...] with Dr. Henry; review MMG done at [facility] My chart: Inactive Pain assessment: Location: n/a [...] mouth 2 times daily. 60 tablet 1 Bqdpkjf-Wfiiwedesintb-Krljdxae (EXCEDRIN PO) Take 250 mg by mouth [...] reports: 06/19/19 bilateral screening mammogram performed at [facility], BI-RADS Category 2, maxwell gray Assessment: ICD-10-CM [...] continue follow-up with Dr Tomeka Nunez at [facility] as directed. Plan: Follow-up with Dr. Henry in early June 2020 Imaging: Annual mammogram due in late May at [facility]. Follow-up with Dr. Nunez at [facility] as directed as well, next November 2019. Alternation of follow-up between providers anticipated. Thank you for allowing me to participate in the care of Yamilet Hernandes. If you avery hilton have any questions regarding this evaluation, please do not hesitate to contact me. Jojo Henry M.D. Radiation Oncologist Department of Radiation Oncology [facility] Office: [phone] signed by Jojo Henry MD at 10/31/2019 [...] [place] | | | | | | [place], [place] | | | | | | [...]
--- OUTSIDE RECORDS SUMMARY | ~2019-11-01 | XMS | Encounter Summary ---
Demographics + + + | Address | [address] | | | [place] [address] | + + + | Home Phone | | + + + | Preferred Language | Unknown | + + + | Marital Status | | + + + | Anglican Affiliation | 1001 | + + + | Race | Unknown | + + + | Ethnic Group | Unknown | + + + Author + + + | Author | [facility] | | | and Christianana | + + + | Organization | [facility] | | | and [...] [place], [place] | | | | | [address] | | + + + + + Care Team Providers + +------+ + | Care Electric Fork Operator Name | Role | Phone | + +------+ + PCP | Unavailable | + +------+ + Encounter Details +--------+ + + + + | Date | Type | Department | Care Team | Description | +--------+ + + + + | 08/05/ | [facility] | [facility] | Brett Wing MD | | | 2005 | Encounter | MED CTR GENERIC OP | [address] | | | | | CONV DEPT [address] | [address] | | | | | [place], | [address] | | | | | [place] [address] | | | | | | [phone] | | | +--------+ + + + [...] [place] | | | | | | [address] | | | | | | | | +--------+ + + + + documented as of this encounter Visit Diagnoses Not on filedocumented in this encounter"
--- OUTSIDE RECORDS SUMMARY | ~2019-11-01 | XMS | Encounter Summary ---
Demographics + + + | Address | [address] | | | [place] [address] | + + + | Home Phone | | + + + | Preferred Language | Unknown | + + + | Marital Status | | + + + | Religion Affiliation | 1001 | + + + | Race | Unknown | + + + | Ethnic Group | Unknown | + + + Author + + + | Author | [facility] | | | and Christianana | + + + | Organization | [facility] | | | and [...] | [place] | | | | | [address] | | + + + + + Care Team Providers + +------+ + | Care Banquet Captain Name | Role | Phone | + [...] + + | 02/17/ | Hospital | [facility] | Mayra, | Malignant neoplasm | | 2019 | Encounter | [facility] | Yosi Yee MD [address] | of upper-outer | | | | ONCOLOGY CLINIC [address] [place] | quadrant of right | | | | [address] [place] | [place] [address] | breast in female, | | | | [place] [address] | [phone] | estrogen receptor | | | | [phone] | | positive (HCC) | +--------+ + [...] | Blood Pressure | 117/77 | 02/17/2019 11:20 AM | | | | | PDT | | + + + + + | Pulse | 69 | 02/17/2019 11:20 AM | | | | | PDT | | + + + + + | Temperature | 37.4 C (99.3 F) | 02/17/2019 11:20 AM | | | | | PDT | | + + + + + | Respiratory Rate | 18 | 02/17/2019 11:20 AM | | | | | PDT | | + + + + + | Oxygen Saturation | 98% | 02/17/2019 11:20 AM | | | | | PDT | | + + + + + | Inhaled Oxygen | - | - | | | Concentration | | | | + + + + + | Weight | 100 kg (220 lb 7.4 | 02/17/2019 11:20 AM | | | | oz) | [...] documented as of this encounter Discharge Instructions Instructions Yosi Nunez MD - 02/17/2019Discontinue anastrozole Wait 2 weeks. Start exemestane (cloth picker exemestane at [facility]) Follow up with me in [place] to review your tolerance of anastozole documented in this encounter Medications at Time [...] encounter Progress Notes Yosi Nunez MD - 02/17/2019 11:24 AM PDTFormatting of this note might be differe nt from the original. Hematology/Oncology Progress Note [facility] [place] Pt. Name/Age/: Yamilet Hernandes 69 y.o. 1950 Med. Record Number: [id number] Date of admission: 02/17/2019 The patient's primary care provider is Maude Means MD. Identifying Statement: Yamilet Hernandes is a 69 y.o. female from [address] [place] [address] with Stage IIA, ER-positive RIGHT breast cancer, status post breast cons erving surgery. The patient chart and medications were reviewed in detail and the patient was seen and exam ined. History of Present Illnesses, their Current Assessments and Plans: Problem List Breast cancer Overview ACTIVE DIAGNOSIS: [id number], Stage IIA, ER-positive, Ki-67 positive, NJ-negative, Her-2/n eu negative, Oncotype DX 29, RIGHT breast cancer, status post breast conserving therapy. 1. Presentation in May, with palpable Right breast mass. 2. Bilateral screening mammography at [facility] OR; 2 cm neodensity i n the upper outer quadrant of the right breast. 3. Right Breast diagnostic mammography and Right breast ultrasound July 15, 2018; 21 x 19 x 25 cm mass in the upper outer quadrant of the right breast. 4. RIGHT breast upper outer quadrant image guided biopsy (JANE Hawkins) on July 28, 2018; Specimen # [id number] (Ferreira, [employer]ann); Grade 3 invasive ductal carcinoma with signet ring f eatures, without associated DCIS or LVI. ER 100%, NJ negative at 0%, Ki-67 positive 39%, Her -2/savanna negative by FISH. 5. Right partial mastectomy with sentinel lymph node biopsy August 05, 2018 (JANE Lucio). Specimen # [id number] (Ferreira, [employer]ann): Invasive carcinoma with signet ring features, grade III, without associated DCIS or LVI, 2.3 cm in diameter, without regionally metastatic disea se in a single right axillary sentinel lymph node. Repeat analysis: Estrogen Receptor positi ve at 75%, progesterone receptor negative at 0%, Ki-67 positive at 50%. 6. Family history of breast cancer in both parents. 7. Presentation at the [facility] Conference, August, with recommendations for Oncotype DX testing of the partial mastectomy specimen and germline testing for comprehensive HBOC syndromes. 8. Oncotype DX score 29, Intermediate Risk, revealed on September 19, 2018. 9. HBOC testing ([employer]) negative, revealed on September 23, 2018; no deleterious muta tions identified. 10. Shared decision-making encounter on September 24, 2018; patient informed of Oncotype DX s core of 29, and declined adjuvant chemotherapy. 10. Adjuvant RIGHT breast radiation therapy 5005 cGy to the right breast in 20 fractions ov er 31 elapsed calendar days, October 06, 2018 through October 31, 2018 at [facility] [place], [place]. 11. Osteoporosis identified at baseline October 10, 2017; T scores; -1.4 for the spine L1- L4, -2.9 for the right femoral neck, -3.1 for the left femoral neck with immediate initiaton of therapy with calcium/vitamin D and aledronate 70 mg orally weekly. 12. Initiation of adjuvant endocrine therapy with anastrozole 1 mg orally daily on November 14, 2018, complicated by intractable bone pain. Current Assessment & Plan Yamilet Hernandes returned to clinic on 02/17/2019 for follow up after three months of adjuvant endocrine therapy with anastrozole for Stage IIA, ER-positive RIGHT breast cance r. Review of systems is notable for severe joint pain since starting anastrozole. Clinical exam is notable for the fact that Yamilet Hernandes is walking very slowly w ith a cane. No new laboratory data to review. No new imaging data to review. Assessment; Stage IIA, ER-positive, Oncotype DX 29, her-2/savanna negative RIGHT breast cancer status post breast conserving therapy. Intolerance to anastrozole. Plan; Discontinue anastrozole. Wait two weeks, then cross over to exemestane 25 mg orally d aily. I will follow up with Yamilet in three months at [facility] in [facility] to review her tolerance to exemestane. Review of Systems: Constitutional: Energy level has been "so-so." Denies fatigue. Denies high fevers, shaking chills, [...] get to 9/10 and be sharp. Note: here for follow-up w/ Dr Nunez Completed XRT on 11/06/2018; had follow-up w/ Dr Henry, as well, today at the [facility] My chart: Declined Scheduled Medications: Current Outpatient Medications Medication Sig Dispense Refill acetaminophen (TYLENOL) 325 mg tablet Take 650 mg by mouth every 4 hours as needed for Pain. alendronate (FOSAMAX) 70 mg tablet Take 70 mg by mouth every 7 days. apixaban (ELIQUIS) 5 mg tablet Take 1 tablet by mouth 2 times daily. 60 tablet 1 Awadwyq-Atwzptxthckrq-Ibufurml (EXCEDRIN PO) Take 250 mg by mouth as needed. Calcium Citrate (CITRACAL PO) Take 500 mg by mouth 2 times daily. exemestane (AROMASIN) 25 MG tablet Take 1 tablet by mouth Daily. 30 tablet 5 loratadine (CLARITIN) 10 mg tablet Take 10 [...] Penicillins Rash Shellfish Rash Sulfa Antibiotics Rash Anastrozole Other (See Comments) Joint pain Aspirin History of colitis Azathioprine Nausea And [...] US GUIDED BREAST BIOPSY RIGHT - Location: [facility] EXTERNAL IMAGING EGD AND COLONOSCOPY N/A 01/31/2016 Procedure: EGD / COLONOSCOPY; Surgeon: Brett Wing MD; Location: [facility] MEDICAL PROCEDUR E UNIT FOOT SURGERY Right 2002, 2003, 2005 HYSTERECTOMY, TOTAL ABDOMINAL KNEE ARTHROSCOPY Right 1985 KNEE ARTHROSCOPY Left 1989 OVARY REMOVAL Bilateral 1991 TONSILLECTOMY TOTAL KNEE ARTHROPLASTY Social History Socioeconomic History Marital status: Spouse name: Bhavesh Number of children: Not on file Years of education: Not on file Highest education level: Not on file Social Needs Financial resource strain: Not on file Food insecurity - worry: Not on file Food insecurity - inability: Not on file Transportation needs - medical: Not on file Transportation needs - non-medical: Not on file Occupational History Not on file Tobacco Use Smoking status: Never Smoker Smokeless tobacco: Never Used Substance and Sexual Activity Alcohol use: No Drug use: No Sexual activity: Yes Other Topics Concern Not on file Social History Narrative Not on file Patient Active Problem List Diagnosis [...] Arthritis Paternal Grandmother Diabetes Paternal Grandmother Congenital heart disease Paternal Grandmother Cancer Paternal Grandfather prostate Stroke Paternal Grandfather Stomach cancer Maternal Aunt Breast cancer Other Objectives: Temp: 37.4 C (99.3 F) BP: 117/77 Pulse: 69 Resp: 18 SpO2: 98 % on Min/Max Temp past 24 hours:No data recorded No intake or output data in the 24 hours ending 02/28/19 1616 Wt. Admission: Weight: 100 kg (220 lb 7.4 oz) Wt. Current: Weight: 100 kg (220 lb 7.4 o z) Wt Readings from Last 3 Encounters: 02/17/19 100 kg (220 lb 7.4 oz) 02/17/19 100 kg (220 lb 7.4 oz) 11/06/18 100.7 kg (222 lb 0.1 oz) Body mass index is 36.29 kg/m. Physical Exam: General: The patient is alert and oriented. No acute distress. Eyes: Conjunctiva clear. Sclera anicteric. ENMT: Oropharynx fee of lesions, mucous membranes moist. Cardiovascular: Regular rate and rhythm, no rubs, gallops, or murmurs. Lungs: Clear to auscultation and percussion. Chest: Clinical breast exam was not performed, having been examined by Dr. Ginger Henry in Radiation Oncology earlier today. Extremities: Nontender, no erythema, no edema. Skin: No rashes, bruising, or petechiae. Neurological: Cranial nerves are intact. Moving very slowly and using a cane. Muscular/Skeletal: No acute bony tenderness. No evidence [...] in Am. J. Clin. Oncol.: Angel Carlson., Morena RTomekaH., Vinay Goncalves., Tawnya Bearden., Bhavik, TGini., Mark, E.T., Dani, P .P.: Toxicity And Response Criteria Of The Eastern Cooperative Oncology Group. Am J Clin Onc ol 5:649-655, 1982. The ECOG Performance Status is in the [...] this chart may have been created with InGaugeIt voice recognition software. Occasi onal wrong-word or sound-alike substitutions may have occurred due to the inherent jack itations of voice recognition software. Please read the chart carefully and recognize, using context, where these substitutions have occurred. documented in t his encounter Plan of Treatment +--------+ + + + + | Date | Type | Specialty | Care Team | Description | +--------+ + + + + | 06/24/ | Appointment | Radiation Oncology | Jojo Henry | | | 2020 | | | MD Jessica [address] | | | | | | [address] [place], [place] | | | | | | [address] | | | | | | | | +--------+ + + + + documented as of this encounter Visit Diagnoses + + | Diagnosis | + + | Malignant neoplasm of upper-outer quadrant of right breast in female, estrogen | | receptor positive (HCC) | + + documented in this encounter
--- OUTSIDE RECORDS SUMMARY | ~2019-11-01 | XMS | Encounter Summary ---
Demographics + + + | Address | [address] | | | [place] [address] | + + + | Home Phone | | + + + | Preferred Language | Unknown | + + + | Marital Status | | + + + | Buddhist Affiliation | 1001 | + + + | Race | Unknown | + + + | Ethnic Group | Unknown | + + + Author + + + | Author | [facility] | | | and Christianana | + + + | Organization | [facility] | | | and Christianana [...] [place], [place] | | | | | [address] | | + + + + + Care Team Providers + +------+ + | Care Preventive Medicine Officer Name | Role | Phone | + [...] Kenny ARNOLD | | | | | [phone] | [place] [address] | | +--------+ + + + + [...] | | | | | | [place], [place] | | | | | | [address] | | | | | | | | +--------+ + + + + documented as of this encounter Procedures + +--------+ + + + | Procedure Name | Priori | Date/Time | Associated Diagnosis | Comments | | | ty | | | | + +--------+ + + + | EDSON TOMOSYN | Routin | 06/18/2018 | | Results for this | | SCREENING BILATERAL | e | 9:00 AM | | procedure are in the | | | | PDT | | results section. | + +--------+ + + + documented in this encounter Results EDSON Tomosynthesis Screening Bilateral (06/18/2018 9:00 AM PDT) + + | Specimen | [...]
--- OUTSIDE RECORDS SUMMARY | ~2019-11-01 | XMS | Encounter Summary ---
Demographics + + + | Address | [address] | | | [place] [address] | + + + | Home Phone | | + + + | Preferred Language | Unknown | + + + | Marital Status | | + + + | Presybeterian Affiliation | 1001 | + + + | Race | Unknown | + + + | Ethnic Group | Unknown | + + + Author + + + | Author | [facility] | | | and Christianana | + + + | Organization | [facility] | | | and Christianana | [...] [place], [place] | | | | | [address] | | + + + + + Care Team Providers + +------+ + | Care Hose Maker Name | Role | Phone | + +------+ + | Maude Means MD | PCP | | + +------+ + Encounter Details +--------+ + + + + | Date | Type | Department | Care Team | Description | +--------+ + + + + | 02/17/ | Documentati | [facility] | Fatoumata Waters RN | | | 2019 | on | [facility] | | | | | | ONCOLOGY CLINIC [address] | | | | | | [address] | | | | | | [place] [address] | | | | | | [phone] | | | +--------+ + + + [...] referrals to be made at this ti dc. Yamilet will make follow up appointments after [...] [place] | | | | | | [id number] | | | | | | | | +--------+ + + + + documented as of this encounter Visit Diagnoses Not on filedocumented in this encounter"
--- OUTSIDE RECORDS SUMMARY | ~2019-11-01 | XMS | Encounter Summary ---
Demographics + + + | Address | [address] | | | [place] [address] | + + + | Home Phone | | + + + | Preferred Language | Unknown | + + + | Marital Status | | + + + | Scientologist Affiliation | 1001 | + + + | Race | Unknown | + + + | Ethnic Group | Unknown | + + + Author + + + | Author | [facility] | | | and Christianana | + + + | Organization | [facility] | | | and [...] [place] | | | | | [address] | | + + + + + Care Team Providers + +------+ + | Care Grocery Clerk Checking Name | Role | Phone | + +------+ + | Puneet Donovan MD | PCP | | + +------+ + Reason for Visit +--------+ + | Reason | Comments | +--------+ + | Other | flex sig | +--------+ + Evaluate & Treat (Routine) +--------+ + + + + + | Status | Reason | Specialty | Diagnoses / | Referred By | Referred To | | | | | Procedures | Contact | Contact | +--------+ + + + + + | Closed | Specialty | Gastroenterol | Diagnoses | Harri, | [place], | | | Services | ogy | Other | Brett Blanc MD | Brett Blanc MD | | | Required | | ulcerative | [address], | | | | | colitis with | [place], [place] | [address] | | | | | | [address] [place], | | | | | complication | [place], [place] | [place] [address] | | | | | ([facility]) | [address] | Phone: | | | | | Procedures | Phone: | [phone] | | | | | [place] | [phone] | Fax: | | | | | SIGMOIDOSCOP | Fax: | [phone] | | | | | Y FLX DX | [phone] | | | | | | W/COLLJ SPEC | | | | | | | BR/WA IF | | | | | | | PFRMD CA | | | | | | | OFFICE | | | | | | | OUTPATIENT | | | | | | | VISIT 10 | | | | | | | MINUTES | | | +--------+ + + + + + Encounter Details +--------+---------+ + + + | Date | Type | Department | Care Team | Description | +--------+---------+ + + + | 03/07/ | Office | [facility] | Brett Wing MD | Other ulcerative | | 2016 | Visit | GASTROENTEROLOGY | [address], [place] | colitis with | | | | [address] [place] | [address] [place], [place] | complication (HCC) | | | | [address] [place], [place] | [address] | | | | | [address] | | | | | | [phone] | | | +--------+---------+ + + + [...] + + + | Blood Pressure | 108/66 | 03/07/2016 1:26 PM | | | | | PDT | | + + + + + | Pulse | 83 | 03/07/2016 1:26 PM | | | | | PDT | | + + + + + | Temperature | - | - | | + + + + + | Respiratory Rate | 16 | 03/07/2016 1:26 PM | | | | | PDT | | + + + + + | Oxygen Saturation | 99% | 03/07/2016 1:26 PM | | | | | PDT | | + + + + + | Inhaled Oxygen | - | - | | | Concentration | | | | + + + + + | Weight | 83.9 kg (185 lb) | 03/07/2016 1:26 PM | | | | | PDT | | + + + + + | Height | 165.1 cm (5' 5") | 03/07/2016 1:26 PM | | | | | PDT | | + + + + + | Body Mass Index | 30.79 | 03/07/2016 1:26 PM | | | | | PDT [...] encounter Progress Notes Brett Wing MD - 03/07/2016 1:57 PM PDTPatient returns today for follow-up with respec t to findings of ulcerative colitis while in the hospital. Last visit for the patient was jensen martinez extremely well and as such was determined given her left-sided disease that flexible si gmoidoscopy to determine if disease activity was present within the advisable before proceed ing with therapy as she is intolerant all sulfasalazine compounds and Imuran. She reports she is continuing to do well. Noticed no blood in the stool has had a relative ly normal bowel pattern. Patient has noticed no blood in her stools following bowel prep ad ministration She has continued to lose weight and has lost 5 pounds since her last office vi sit Informed consent patient identification was carried out prior to flexible sigmoidoscopy. O n perineal exam is normal except for external skin tag. Rectal tone is normal. Specimens sigmoidcarried out to 40 cm. There were 2 sharp sigmoid colon reflections which are negotiated with minor discomfort to the patient. Mucosal surfaces appear what atrophic but certainly no evidence for ongoing inflammatory changes were present on previous colonosc opy while hospitalized. Ulcerative colitis left-sided by history and recent exam approximately a month ago resolved Follow the patient clinically and she is to contact our office if she begins to have a flar e in her disease. At that time budesonide would be appropriate first line therapyElectronic ally signed by Brett Wing MD at 03/07/2016 2:01 PM PDTdocumented in this encounter Plan of Treatment +--------+ + + + + | Date | Type | Specialty | Care Team | Description | +--------+ + + + + | 06/24/ | Appointment | Radiation Oncology | Jojo Henry | | | 2019 | | | MD [address] | | | | | | [place], [place] | | | | | | [address] | | | | | | | | +--------+ + + + + documented as of this encounter Visit Diagnoses + + | Diagnosis | + + | Other ulcerative colitis with complication (HCC) | + + documented in this encounter
--- OUTSIDE RECORDS SUMMARY | ~2019-11-01 | XMS | Encounter Summary ---
Demographics + + + | Address | [address] | | | [place] [address] | + + + | Home Phone | | + + + | Preferred Language | Unknown | + + + | Marital Status | | + + + | Roman Catholic Affiliation | 1001 | + + + | Race | Unknown | + + + | Ethnic Group | Unknown | + + + Author + + + | Author | [facility] | | | and Christianana | + + + | Organization | [facility] | | | and [place] | [...] | [place] | | | | | [address] | | + + + + + Care Team Providers + +------+ + | Care Psychology Lecturer Name | Role | Phone | + +------+ + | Maude Means MD | PCP | | + +------+ + Reason for Visit + + + | Reason | Comments | + + + | Scheduling Issues | | + + + Encounter Details +--------+ + + + + | Date | Type | Department | Care Team | Description | +--------+ + + + + | 08/28/ | Telephone | [facility] | Juanita Key | Scheduling Issues | | 2018 | | [facility] | J, RN | | | | | ONCOLOGY CLINIC [address] | | | | | | [address] | | | | | | [place] [address] | | | | | | [phone] | | | +--------+ + + + [...] [address] | | | | | | [place], [place] | | | | | | [id number] | | | | | | | | +--------+ + + + + documented as of this encounter Visit Diagnoses Not on filedocumented in this encounter"
--- OUTSIDE RECORDS SUMMARY | ~2019-11-01 | XMS | Encounter Summary ---
Demographics + + + | Address | [address] | | | [place] [address] | + + + | Home Phone | | + + + | Preferred Language | Unknown | + + + | Marital Status | | + + + | Faith Affiliation | 1001 | + + + | Race | Unknown | + + + | Ethnic Group | Unknown | + + + Author + + + | Author | [facility] | | | and [place]ana | + + + | Organization | [facility] | | | and [...] [place], [place] | | | | | [address] | | + + + + + Care Team Providers + +------+ + | Care Ceiling Insulation Blower Name | Role | Phone | + [...] Kenny ARNOLD | | | | | [phone] | [place] [address] | | +--------+ + + + + [...] | | | | | | ST [place], [place] | | | | | | [address] | | | | | | | | +--------+ + + + + documented as of this encounter Procedures + +--------+ + + + | Procedure Name | Priori | Date/Time | Associated Diagnosis | Comments | | | ty | | | | + +--------+ + + + | NM SENTINEL NODE | Routin | 08/05/2018 | | Results for this | | INJECTION WO IMAGES | e | 7:45 AM | | procedure are in the | | | | PDT | | results section. | + +--------+ + + + documented in this encounter Results NM Moro Node Injection wo Images (08/05/2018 7:45 AM PDT) + + | Specimen | [...]
--- OUTSIDE RECORDS SUMMARY | ~2019-11-01 | XMS | Encounter Summary ---
Demographics + + + | Address | [address] | | | [place] [address] | + + + | Home Phone [...] Author | [facility] | | | and Christianana | + + + | Organization | [facility] | | | and Christianana [...] [place] | | | | | [address] | | + + + + + Care Team Providers + +------+ + | Care Personal Banker Name | Role | Phone | + [...] | +--------+ + + + + | 01/30/ | Anesthesia | [facility] | Tima Romo MD | | | 2016 | Event | MED [facility] MP INTRA OP | [address] | | | | | [address] | [place] | | | | | [place], [place] | [address] | | | | | [address] | | | | | | [phone] | | | +--------+ + + + + Anesthesia Record + + + + + | Procedure Name | Responsible | Anesthesia Start | Anesthesia Stop Time | | | Anesthesiologist | Time | | + + + + + | EGD / COLONOSCOPY | Tima Romo MD | 01/31/16 1302 | 01/31/16 1335 | | (N/A ) | | | | + + + + + +----+---+ + + | Da | T | Event | Comment | | te | i | | | | | m | | | | | e | | | +----+---+ + + | 04 | 1 | | | | /1 | 3 | | | | 2/ | 0 | | | | 20 | 0 | | | | 16 | | | | +----+---+ + + | | 1 | An Checkout | Pre-use anesthesia machine/equipment checkout. | | | 3 | | | | | 0 | | | | | 2 | | | +----+---+ + + | | 1 | An Start | Reassessment prior to anesthesia induction/procedure. | | | 3 | | | | | 0 | | | | | 2 | | | +----+---+ + + | | 1 | An | | | | 3 | Induction | | | | 0 | | | | | 7 | | | +----+---+ + + | | 1 | An Data Art | Patient's coughing making BP measurement difficult | | | 3 | | | | | 1 | | | | | 6 | | | +----+---+ + + | | 1 | an stop | | | | 3 | data | | | | 3 | | | | | 0 | | | +----+---+ + + | | 1 | An Stop | Patient handed off to recovery nurse. | | | 3 | | | | | 5 | | | +----+---+ + + +------+ | Meds | +------+ + + + | Name | Total | + + + | propofol | 120 mg | + + + | propofol | 140.08 mg | + + + | lidocaine 2% | 20 mg | + + + | lactated ringers (LR) infusion | 150 mL | + + + + + | Name | + + | O2 Flow Rate (L/Min) | + + + + | No blood administrations on file. | + + +--------+ + + + | Type | Details | Placement | Removal | +--------+ + + + | Read | 12/26/15; Left; anterior, | 12/26/15 0000 by | 01/13/19 1342 by | | only - | midline; knee; 01/13/19 | Bhavesh Blankenship, | User Epic | | | (Completed/Removed by Utility); | RN | | | Incisi | 1342 (Completed/Removed by | | | | on | Utility) | | | +--------+ + + + | CVC | 01/07/16; yes; 01/12/19 | 01/07/16 0000 by | 01/12/19 1643 by | | Single | (Removed/Completed by utility); | Vivian A Foster, RN | User Epic | | Lumen | 1643 (Removed/Completed by | | | | | utility) | | | +--------+ + + + documented in this encounter Social History + +-------+ +--------+------+ | Tobacco [...] | | | | | [facility] [place] [facility] | | | | | | [id number] | | | | | | | | +--------+ + + + + documented as of this encounter Visit Diagnoses Not on filedocumented in this encounter Administered Medications + +--------+ +-------+------+------+ | Medication Order | MAR | Action | Dose | Rate | Site | | | Action | Date | | | | + +--------+ +-------+------+------+ | lidocaine (PF) 2% injection | Given | 01/31/20 | 20 mg | | | | Intravenous, PRN, Starting Tue | | 16 1:07 | | | | | 01/31/16 at 1307, Anesthesia | | PM PDT | | | | | Intra-op | | | | | | + +--------+ +-------+------+------+ +---+---+ | | | +---+---+ + +-------+ +-------+---+---+ | propofol (DIPRIVAN) injection | Given | 01/31/20 | 20 mg | | | | PRN, Starting Tu01/31/16 at | | 16 1:08 | | | | | 1307, Anesthesia Intra-op | | PM PDT | | | | + +-------+ +-------+---+---+ +-------+ +--------+---+---+ | Given | 01/31/20 | 100 mg | | | | | 16 1:07 | | | | | | PM PDT | | | | +-------+ +--------+---+---+ +---+---+ | | | +---+---+ + +---------+ + +-------+---+ | propofol (DIPRIVAN) injection | New Bag | 01/31/20 | 100 | 49.4 | | | Intravenous, CONTINUOUS PRN, | | 16 1:09 | mcg/kg/m | mL/hr | | | Starting 01/31/16 at 1309, | | PM PDT | in | | | | Anesthesia Intra-op | | | | | | + +---------+ + +-------+---+ +---+---+ | | | +---+---+ documented in this encounter"
--- OUTSIDE RECORDS SUMMARY | ~2019-11-01 | XMS | Encounter Summary ---
Demographics + + + | Address | [address] | | | [place] [address] | + + + | Home Phone | | + + + | Preferred Language | Unknown | + + + | Marital Status | | + + + | Anglican Affiliation | 1001 | + + + | Race | Unknown | + + + | Ethnic Group | Unknown | + + + Author + + + | Author | [facility] | | | and Christianana | + + + | Organization | [facility] | | | [...] [place], [place] | | | | | [address] | | + + + + + Care Team Providers + +------+ + | Care Sales Management Intern Name | Role | Phone | + [...] | Malignant | Jojo M, | [address] | | | | | neoplasm of | MD [address] | [place], | | | | | right breast | [address] | [place] [address] | | | | | in female, | [place], | Phone: | | | | | estrogen | [place] [address] | [phone] | | | | | receptor | Phone: | Fax: | | | | | positive, | [phone] | [phone] | | | | | unspecified | Fax: | | | | | | site of | [phone] | | | | | | breast [...] | Malignant | Jojo Lopez, | [address] [place] | | | | | neoplasm of | MD [address] | [place], | | | | | right breast | [address] | [place] [address] | | | | | in female, | [place], | Phone: | | | | | estrogen | [place] [address] | [phone] | | | | | receptor | Phone: | Fax: | | | | | positive, | [phone] | [phone] | | | | | unspecified | Fax: | | | | | | site of | [phone] | | | | | | breast [...] + + | 09/30/ | Hospital | [facility] | Jojo Henry | Malignant neoplasm | | 2018 | Encounter | MED CTR [address] | M, [address] | of right breast in | | | | [place], | [place], [place] | female, estrogen | | | | [place] [address] | [address] | receptor positive, | | | | [phone] | | unspecified site of | | [...] [place] | | | | | | [facility] [place] | | | | | | [id number] | | | | | | | [...]
--- OUTSIDE RECORDS SUMMARY | ~2019-11-01 | XMS | Encounter Summary ---
Demographics + + + | Address | [address] | | | [place] [address] | + + + | Home Phone | | + + + | Preferred Language | Unknown | + + + | Marital Status | | + + + | Baptist Affiliation | 1001 | + + + | Race | Unknown | + + + | Ethnic Group | Unknown | + + + Author + + + | Author | [facility] | | | and Christianana | + + + | Organization | [facility] | [...] [place], [place] | | | | | [address] | | + + + + + Care Team Providers + +------+ + | Care Bracer Name | Role | Phone | + +------+ + PCP | Unavailable | + +------+ + Encounter Details +--------+ + + + + | Date | Type | Department | Care Team | Description | +--------+ + + + + | 07/28/ | [facility] | [facility] | Brett Wing MD | | | 1997 | Encounter | MED CTR GENERIC OP | [address] | | | | | CONV DEPT [address] | [address] [place] [address] | | | | | [place], | [address] | | | | | [place] [address] | | | | | | [phone] | | | +--------+ + + + [...] [place] | | | | | | [address] | | | | | | | | +--------+ + + + + documented as of this encounter Visit Diagnoses Not on filedocumented in this encounter"
--- OUTSIDE RECORDS SUMMARY | ~2019-11-01 | XMS | Encounter Summary ---
Demographics + + + | Address | [address] | | | [place] [address] | + + + | Home Phone | | + + + | Preferred Language | Unknown | + + + | Marital Status | | + + + | Temple Affiliation | 1001 | + + + | Race | Unknown | + + + | Ethnic Group | Unknown | + + + Author + + + | Author | [facility] | | | and Christianana | + + + | Organization | [facility] | | | and Christianana | + + + | Address | Unknown | + + + | Phone | Unavailable | + + + Support + + + + + | Name | Relationship | Address | Phone | + + + + + | Bhavesh Hernandes | ECON | [address] | | | | | [place] | | | | | [address] | | + + + + + Care Team Providers + +------+ + | Care Intrusion Analyst Name | Role | Phone | + [...] | +--------+ + + + + | 11/06/ | Hospital | [facility] | Jojo Henry | Malignant neoplasm | | 2019 | Encounter | MED CTR RADIATION | MD Jessica [address] | of upper-outer | | | | ONCOLOGY CLINIC [address] | [place], [place] | quadrant of right | | | | [address] [place] | [address] | breast in female, | | | | [place] [address] | | estrogen receptor | | | | [phone] | | positive (HCC) | | | [...] + + + | Blood Pressure | 133/74 | 11/06/2018 10:15 AM | | | | | PST | | + + + + + | Pulse | 81 | 11/06/2018 10:15 AM | | | | | PST | | + + + + + | Temperature | 36.9 C (98.4 F) | 11/06/2018 10:15 AM | | | | | PST | | + + + + + | Respiratory Rate | 16 | 11/06/2018 10:15 AM | | | | | PST | | + + + + + | Oxygen Saturation | 96% | 11/06/2018 10:15 AM | | | | | PST | | + + + + + | Inhaled Oxygen | - | - | | | Concentration | | | | + + + + + | Weight | 100.7 kg (222 lb 0.1 | 11/06/2018 10:15 AM | | | | oz) | PST | | + + + + + | Height | - | - | | + + + + + | Body Mass Index | 36.54 | 09/03/2018 12:49 PM | | | [...] encounter Progress Notes Jojo Henry MD - 11/06/2018 10:17 AM PST Radiation Oncology Weekly On Treatment Note Diagnosis: ICD-10-CM ICD-9-CM 1. Malignant neoplasm of upper-outer quadrant of right breast in female, estrogen receptor positive (HCC) C50.411 174.4 Z17.0 V86.0 Reason for visit: On treatment evaluation Radiation technical factors: Dose Delivered Dose Planned Fractions Delivered 4005 cGy 1000 cGy 4005 cGy 1000 cGy 02/22 Images were reviewed this week and results [...] mouth 2 times daily. 60 tablet 1 Ssfohnl-Qkvhqtbqudloy-Xvhvtxnw (EXCEDRIN PO) Take 250 mg by mouth [...] facility-administered medications on file prior to encounter. 11/06/18 1017 General Disorders and Administration Site Conditions Fatigue 1 - Grade 1 Performance Status Karnofsky Performance Score 80% Pain assessment: Location: back Pain Level: PAIN PROG PAIN LEVEL: 2 Pain Quality: Aching Current pain regimen:excedrin Wt Readings from Last 3 Encounters: 11/06/18 100.7 kg (222 lb 0.1 oz) 01/10/19 99.6 kg (219 lb 9.3 oz) 10/23/18 98.8 kg (217 lb 13 oz) Vitals: 11/06/18 1015 BP: 133/74 Pulse: 81 Resp: 16 Temp: 36.9 C (98.4 F) TempSrc: Temporal SpO2: 96% Weight: 100.7 kg (222 lb 0.1 oz) Physical Exam Constitutional: She appears well-developed and well-nourished. Neurological: She is alert. Skin: Rash (Small area of follicular rash medially.) noted. There is erythema (Deep erythem a without desquamation throughout radiation treatment field). Psychiatric: She has a normal mood and affect. Physician Assessment: Yamilet completed radiation treatment as scheduled today. She has developed expected mild moderate radiation dermatitis with deep erythema and a follicular rash. She denies any s ignificant breast pain or pruritus. Managing skin care with emollient lotion. Toxicities reviewed in nursing note. Disposition: completed treatment as planned. Follow-up with Dr. Nunez in [place] in the next 1 2 months for adjuvant endocrine therapy. Follow-up with me in 3 months, sooner if needed. Resume annual mammography. Jojo Henry MD Radiation Oncologist documented in this encounter Plan of Treatment +--------+ + + + + | Date | Type | Specialty | Care Team | Description | +--------+ + + + + | 06/24/ | Appointment | Radiation Oncology | Riegert, Jojo | | | 2019 | | | MD Jessica [address] | | | | | | [place] | | | | | | [address] | | | | | | | | +--------+ + + + + documented as of this encounter Visit Diagnoses + + | Diagnosis | + + | Malignant neoplasm of upper-outer quadrant of right breast in female, estrogen | | receptor positive (HCC) - Primary | + + documented in this encounter"
--- OUTSIDE RECORDS SUMMARY | ~2019-11-01 | XMS | Encounter Summary ---
Demographics + + + | Address | [address] | | | [place] [address] | + + + | Home Phone [...] | Author | [facility] | | | and Christianana | + + + | Organization | [facility] | | | and [...] | [place] | | | | | [address] | | + + + + + Care Team Providers + +------+ + | Care Stereo Compiler Name | Role | Phone | + [...] | +--------+ + + + + | 10/16/ | Hospital | [facility] | Homar Ortega DO | Malignant neoplasm | | 2018 | Encounter | MED CTR RADIATION | [address] | of upper-outer | | | | ONCOLOGY CLINIC [address] | [place], [place] | quadrant of right | | | | [address] [place] | [address] | breast in female, | | | | [place] [address] | | estrogen receptor | | | | [phone] | | positive (HCC) | | | [...] + + + | Blood Pressure | 129/87 | 10/16/2018 10:30 AM | | | | | PST | | + + + + + | Pulse | 78 | 10/16/2018 10:30 AM | | | | | PST | | + + + + + | Temperature | 36.2 C (97.2 F) | 10/16/2018 10:30 AM | | | | | PST | | + + + + + | Respiratory Rate | 16 | 10/16/2018 10:30 AM | | | | | PST | | + + + + + | Oxygen Saturation | 100% | 10/16/2018 10:30 AM | | | | | PST | | + + + + + | Inhaled Oxygen | - | - | | | Concentration | | | | + + + + + | Weight | 99.3 kg (218 lb 14.7 | 10/16/2018 10:30 AM | | | | oz) | [...] documented as of this encounter Progress Notes Homar Ortega DO - 10/16/2018 10:32 AM PST Radiation Oncology Weekly On Treatment Note Diagnosis: ICD-10-CM ICD-9-CM 1. Malignant neoplasm of upper-outer quadrant of right breast in female, estrogen receptor positive (HCC) C50.411 174.4 Z17.0 V86.0 Reason for visit: On treatment evaluation Radiation technical factors: Dose Delivered Dose Planned Fractions Delivered 1869 cGy 4005 cGy 05/04 Images were reviewed this week and results [...] mouth 2 times daily. 60 tablet 1 Xtiaxgz-Wmgcekqopenyt-Vwlbluws (EXCEDRIN PO) Take 250 mg by mouth [...] facility-administered medications on file prior to encounter. 10/16/18 1032 General Disorders and Administration Site Conditions Fatigue 1 - Grade 1 Respiratory Thoracic and Mediastinal Cough 0 - Grade 0 Performance Status Karnofsky Performance Score 70% Pain assessment: Location: back Pain Level: PAIN PROG PAIN LEVEL: 3 Pain Quality: Stable Current pain regimen: tylenol as needed Wt Readings from Last 3 Encounters: 10/16/18 99.3 kg (218 lb 14.7 oz) 10/09/18 98.1 kg (216 lb 4.3 oz) 09/16/18 99.6 kg (219 lb 9.3 oz) Vitals: 10/16/18 1030 BP: 129/87 Pulse: 78 Resp: 16 Temp: 36.2 C (97.2 F) TempSrc: Tympanic SpO2: 100% Weight: 99.3 kg (218 lb 14.7 oz) Physical Exam Constitutional: She is oriented to person, place, and time. Vital signs are normal. She cabrera ears well-developed and well-nourished. HENT: Head: Normocephalic and atraumatic. Eyes: Conjunctivae and EOM are normal. No scleral icterus. Neck: Trachea normal. Neck supple. Cardiovascular: Normal rate, regular rhythm and intact distal pulses. Pulmonary/Chest: Effort normal and breath sounds normal. Musculoskeletal: Normal range of motion. Neurological: She is alert and oriented to person, place, and time. She has normal strength . No cranial nerve deficit. Skin: Skin is warm, dry and intact. Psychiatric: She has a normal mood and affect. Her speech is normal and behavior is normal. Physician Assessment: Overall, she is tolerating treatment well with no new concerns or complaints this week. Sh e notes that her energy is down somewhat but otherwise not bothersome. She denies any skin changes and is applying skin care products as previously recommended. Acute toxicities revi ewed. She will continue treatment as planned. Toxicities reviewed in nursing note. Disposition: Continue radiation treatment as planned. Homar Ortega DO Radiation Oncologist documented in this enco unter Plan of Treatment +--------+ + + + + | Date | Type | Specialty | Care Team | Description | +--------+ + + + + | 06/24/ | Appointment | Radiation Oncology | Jojo Henry | | | 2019 | | | MD [address] | | | | | | [place] | | | | | | [address] | | | | | | | | +--------+ + + + + documented as of this encounter Visit Diagnoses + + | Diagnosis | + + | Malignant neoplasm of upper-outer quadrant of right breast in female, estrogen | | receptor positive (HCC) - Primary | + + documented in this encounter"
--- OUTSIDE RECORDS SUMMARY | ~2019-11-01 | XMS | Encounter Summary ---
Demographics + + + | Address | [address] | | | [place] [address] | + + + | Home Phone | | + + + | Preferred Language | Unknown | + + + | Marital Status | | + + + | Christian Affiliation | 1001 | + + + | Race | Unknown | + + + | Ethnic Group | Unknown | + + + Author + + + | Author | [facility] | | | and Christianana | + + + | Organization | [facility] | | | and [...] [place], [place] | | | | | [address] | | + + + + + Care Team Providers + +------+ + | Care Tester Compressed Gases Name | Role | Phone | + +------+ + | Puneet Donovan MD | PCP | | + +------+ + Reason for Visit Diagnostic/Screening (Routine) +--------+--------+ + + + + | Status | Reason | Specialty | Diagnoses / | Referred By | Referred To | | | | | Procedures | Contact | Contact | +--------+--------+ + + + + | Closed | | Radiology | Procedures | Provider, | | | | | | MRI | Historical, | | | | | | Thoracic | [address] | | | | | | Spine wo | [address] | | | | | | Contrast | [place] | | | | | | | [address] | | +--------+--------+ + + + + Encounter Details +--------+ + + + + | Date | Type | Department | Care Team | Description | +--------+ + + + + | 10/11/ | Imaging | [facility] | Provider, | | | 2016 | Exam | MED CTR EXTERNAL | Historical, 1800 | | | | | IMAGING | [address] | | | | | [phone] | [place] [address] | | +--------+ + + + + [...] 06/24/ | Appointment | Radiation Oncology | Carl Jojo | | | 2020 | | | MD [address] | | | | | | [place], [place] | | | | | | [address] | | | | | | | | +--------+ + + + + documented as of this encounter Procedures + +--------+ + + + | Procedure Name | Priori | Date/Time | Associated Diagnosis | Comments | | | ty | | | | + +--------+ + + + | MRI THORACIC SPINE | Routin | 10/07/2017 | | Results for this | | WO CONTRAST | e | 2:25 PM | | procedure are in the | | | | PST | | results section. | + +--------+ + + + documented in this encounter Results MRI Thoracic Spine wo Contrast (10/07/2017 2:25 PM PST) + + | Specimen | + + | | + + + + + | Narrative | Performed At | + + + | External films | [facility] | | for comparison only - no result from [facility]. | | + + + + +---------+ + + | Performing | Address | City/State/Zipcode | Phone Number | | Organization | | | | + +---------+ + + | [facility] | | | | + +---------+ + + documented in this encounter Visit Diagnoses Not on filedocumented in this encounter"
--- OUTSIDE RECORDS SUMMARY | ~2019-11-01 | XMS | Encounter Summary ---
Demographics + + + | Address | [address] | | | [place] [address] | + + + | Home Phone | | + + + | Preferred Language | Unknown | + + + | Marital Status | | + + + | Nondenominational Affiliation | 1001 | + + + | Race | Unknown | + + + | Ethnic Group | Unknown | + + + Author + + + | Author | [facility] | | | and Christianana | + + + | Organization | [facility] | | | and Christianana [...] [place], [place] | | | | | [address] | | + + + + + Care Team Providers + +------+ + | Care Refractory Technician Name | Role | Phone | + +------+ + | Maude Means MD | PCP | | + +------+ + Encounter Details +--------+ + + + + | Date | Type | Department | Care Team | Description | +--------+ + + + + | 10/08/ | Documentati | [facility] | Ronna Andrade | | | 2018 | on | MED CNT ONCOLOGY | A, OT | | | | | THERAPY [address] | | | | | | [place], | | | | | | [place] [address] | | | | | | [phone] | | | +--------+ + + + [...] encounter Progress Notes Ronna Andrade OT - 10/08/2018 10:44 AM PSTPROVIALEX[facility] THERAPY OT OP [address] [place] [address] Oncology Rehab Screening Date: 10/08/2018 Patient Information Patient Name: Yamilet [place] Date of : 1950 Age: 68 y.o. Patient was seen for oncology rehab screening due to new patient consult. Patient currently being treated for R breast cancer; s/p R lumpectomy and SNB 07/2018 and treatment regimen i ncludes radiation. Introduced self to patient and advised her of role and [facility]. Patient is currently identifying [...] patient to contact oncology rehab if any [facility] er questions or concerns should arise [...] | | | | [place] | | | | | | [address] | | | | | | | | +--------+ + + + + documented as of this encounter Visit Diagnoses Not on filedocumented in this encounter"
--- OUTSIDE RECORDS SUMMARY | ~2019-11-01 | XMS | Encounter Summary ---
Demographics + + + | Address | [address] | | | [place] [address] | + + + | Home Phone | | + + + | Preferred Language | Unknown | + + + | Marital Status | | + + + | Anglican Affiliation | 1001 | + + + | Race | Unknown | + + + | Ethnic Group | Unknown | + + + Author + + + | Author | [facility] | | | and Christianana | + + + | Organization | [facility] | | | and [...] | [place] | | | | | [address] | | + + + + + Care Team Providers + +------+ + | Care Pinion And Wheel Truer Name | Role | Phone | + [...] | | | | | | [place] [address] | | | | | | [phone] | | | +--------+ + + + [...] [place] | | | | | | [address] | | | | | | | | +--------+ + + + + documented as of this encounter Visit Diagnoses Not on filedocumented in this encounter"
--- OUTSIDE RECORDS SUMMARY | ~2019-11-01 | XMS | Encounter Summary ---
Demographics + + + | Address | [address] | | | [place] [address] | + + + | Home Phone [...] Author | [facility] | | | and Christianana | + + + | Organization | [facility] | | | and [...] | [place] | | | | | [address] | | + + + + + Care Team Providers + +------+ + | Care Can Filling And Closing Machine Tender Name | Role | Phone | + +------+ + | Puneet Donovan MD | PCP | | + +------+ + Encounter Details +--------+ + + + + | Date | Type | Department | Care Team | Description | +--------+ + + + + | 12/31/ | [facility] | [facility] | Bhavesh Lomax MD | Back pain, | | 2018 | Encounter | MED CTR XRAY [address] | [address] | unspecified back | | | | [place] | [place] [address] | location, | | | | [place] [address] | [phone] | unspecified back | | | | [phone] | | pain laterality, | | | [...] [place] | | | | | | [id number] | | | | | | | [...]
--- OUTSIDE RECORDS SUMMARY | ~2019-11-01 | XMS | Encounter Summary ---
Demographics + + + | Address | [address] | | | [place] [address] | + + + | Home Phone | | + + + | Preferred Language | Unknown | + + + | Marital Status | | + + + | Hindu Affiliation | 1001 | + + + | Race | Unknown | + + + | Ethnic Group | Unknown | + + + Author + + + | Author | [facility] | | | and Christianana | + + + | Organization | [facility] | | | and [...] | [place] | | | | | [address] | | + + + + + Care Team Providers + +------+ + | Care Airplane And Engine Inspector Name | Role | Phone | + +------+ + | Maude Means MD | PCP | | + +------+ + Reason for Visit + + + | Reason | Comments | + + + | Breast Cancer | | + + + | Under Treatment | | + + + Encounter Details +--------+ + + + + | Date | Type | Department | Care Team | Description | +--------+ + + + + | 10/30/ | Hospital | [facility] | Jojo Henry | Malignant neoplasm | | 2019 | Encounter | MED CTR RADIATION | MD Jessica [address] | of upper-outer | | | | ONCOLOGY CLINIC [address] | [place], [place] | quadrant of right | | | | [facility] | [address] | breast in female, | | | | [place] [address] | | estrogen receptor | | | | [phone] | | positive (HCC) | | | [...] + + + | Blood Pressure | 135/73 | 10/30/2018 10:00 AM | | | | | PST | | + + + + + | Pulse | 66 | 10/30/2018 10:00 AM | | | | | PST | | + + + + + | Temperature | 36.2 C (97.2 F) | 10/30/2018 10:00 AM | | | | | PST | | + + + + + | Respiratory Rate | 16 | 10/30/2018 10:00 AM | | | | | PST | | + + + + + | Oxygen Saturation | 99% | 10/30/2018 10:00 AM | | | | | PST | | + + + + + | Inhaled Oxygen | - | - | | | Concentration | | | | + + + + + | Weight | 99.6 kg (219 lb 9.3 | 10/30/2018 10:05 AM | | | | oz) | [...] encounter Progress Notes Jojo Henry MD - 10/30/2018 10:06 AM PST Radiation Oncology Weekly On Treatment Note Diagnosis: ICD-10-CM ICD-9-CM 1. Malignant neoplasm of upper-outer quadrant of right breast in female, estrogen receptor positive (HCC) C50.411 174.4 Z17.0 V86.0 Reason for visit: On treatment evaluation Radiation technical factors: Dose Delivered Dose Planned Fractions Delivered 4005 cGy Boost 0 cGy 4005 cGy 1000 cGy 0/5 Images were reviewed this week and results [...] mouth 2 times daily. 60 tablet 1 Wuenhpo-Jtsckyczmmwzc-Suixhyxm (EXCEDRIN PO) Take 250 mg by mouth [...] facility-administered medications on file prior to encounter. 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 Neurological: She is alert. Skin: No rash noted. There is erythema (faint erythema). Psychiatric: She has a normal mood and affect. Physician Assessment: Yamilet continues to do quite well with radiation. She endorses mild fatigue. Chronic ba ck pain is exacerbated by treatment position, managing well with Tylenol. Very faint breast erythema, no pain or pruritus Toxicities reviewed in nursing note. Disposition: Continue radiation treatment as planned. Skin care with emollient lotion Jojo Henry MD Radiation Oncologist documented in [...] | | | | | [place] | | | | | | [address] | | | | | | | | +--------+ + + + + documented as of this encounter Visit Diagnoses + + | Diagnosis | + + | Malignant neoplasm of upper-outer quadrant of right breast in female, estrogen | | receptor positive (HCC) - Primary | + + documented in this encounter"
--- OUTSIDE RECORDS SUMMARY | ~2019-11-01 | XMS | Encounter Summary ---
Demographics + + + | Address | [address] | | | [place] [address] | + + + | Home Phone | | + + + | Preferred Language | Unknown | + + + | Marital Status | | + + + | Synagogue Affiliation | 1001 | + + + | Race | Unknown | + + + | Ethnic Group | Unknown | + + + Author + + + | Author | [facility] | | | and Christianana | + + + | Organization | [facility] | | | and [...] [place], [place] | | | | | [address] | | + + + + + Care Team Providers + +------+ + | Care Welding Inspector Name | Role | Phone | + +------+ + PCP | Unavailable | + +------+ + Encounter Details +--------+ + + + + | Date | Type | Department | Care Team | Description | +--------+ + + + + | 06/03/ | [facility] | [facility] | Brett Wing MD | | | 2000 | Encounter | MED CTR GENERIC OP | [address] | | | | | CONV DEPT [address] | [address] [place] [address] | | | | | [place], | [address] | | | | | [place] [address] | | | | | | [phone] | | | +--------+ + + + [...] [place] | | | | | | [address] | | | | | | | | +--------+ + + + + documented as of this encounter Visit Diagnoses Not on filedocumented in this encounter"
--- OUTSIDE RECORDS SUMMARY | ~2019-11-01 | XMS | Encounter Summary ---
Demographics + + + | Address | [address] | | | [place] [address] | + + + | Home Phone | | + + + | Preferred Language | Unknown | + + + | Marital Status | | + + + | Latter Day Affiliation | 1001 | + + + | Race | Unknown | + + + | Ethnic Group | Unknown | + + + Author + + + | Author | [facility] | | | and [place]ana | + + + | Organization | [facility] | | | and [...] [place], [place] | | | | | [address] | | + + + + + Care Team Providers + +------+ + | Care Real Estate Sales Associate Name | Role | Phone | + [...] | Malignant | Jojo M, | [address] | | | | | neoplasm of | MD [address] | [place], | | | | | right breast | [address] | [place] [address] | | | | | in female, | [place], | Phone: | | | | | estrogen | [place] [address] | [phone] | | | | | receptor | Phone: | Fax: | | | | | positive, | [phone] | [phone] | | | | | unspecified | Fax: | | | | | | site of | [phone] | | | | | | breast [...] | | | ONCOLOGY CLINIC [address] | [place], [place] | female, estrogen | | | | [address] [place] | [address] | receptor positive, | | | | [place] [address] | | unspecified site of | | | | [phone] | | breast (HCC) | | | [...] [place] | | | | | | [id number] | | | | | | | [...]
--- OUTSIDE RECORDS SUMMARY | ~2019-11-01 | XMS | Encounter Summary ---
Demographics + + + | Address | [address] | | | [place] [address] | + + + | Home Phone | | + + + | Preferred Language | Unknown | + + + | Marital Status | | + + + | Roman Catholic Affiliation | 1001 | + + + | Race | Unknown | + + + | Ethnic Group | Unknown | + + + Author + + + | Author | [facility] | | | and Christianana | + + + | Organization | [facility] | | | and [...] [place], [place] | | | | | [address] | | + + + + + Care Team Providers + +------+ + | Care Product Safety Officer Name | Role | Phone | [...] [place]ina | | | | | [phone] | [place] [address] | | +--------+ + + + + [...] | | | | | [address] [place] [facility] [place] | | | | | | [address] | | | | | | | [...] for comparison only - no result from [place]. | | + + + + +---------+ + + | Performing | Address | City/State/Zipcode | Phone Number | | Organization | | | | + +---------+ + + | [facility] | | | | + +---------+ + + documented in this encounter Visit Diagnoses Not on filedocumented in this encounter"
--- OUTSIDE RECORDS SUMMARY | ~2019-11-01 | XMS | Encounter Summary ---
Demographics + + + | Address | [address] | | | [place] [address] | + + + | Home Phone | | + + + | Preferred Language | Unknown | + + + | Marital Status | | + + + | Caodaism Affiliation | 1001 | + + + | Race | Unknown | + + + | Ethnic Group | Unknown | + + + Author + + + | Author | [facility] | | | and Christianana | + + + | Organization | [facility] | | | and Christianana [...] [place], [place] | | | | | [address] | | + + + + + Care Team Providers + +------+ + | Care Match Marker Name | Role | Phone | + +------+ + | Maude Means MD | PCP | | + +------+ + Encounter Details +--------+ + + + + | Date | Type | Department | Care Team | Description | +--------+ + + + + | 06/26/ | Orders Only | [facility] | Conversion | | | 2015 | | INFECTIOUS DISEASE | Transaction, | | | | | [address] | Provider Unknown | | | | | [facility] [place] | [phone] | | | | | [address] | | | | | | [phone] | | | +--------+ + + + [...] | | | | | | [place], [place] | | | | | | [address] | | | | | | | | +--------+ + + + + documented as of this encounter Procedures + +--------+ + + + | Procedure Name | Priori | Date/Time | Associated Diagnosis | Comments | | | ty | | | | + +--------+ + + + | EXTERNAL LAB: CBC | Routin | 06/26/2016 | | Results for this | | | e | 12:00 AM | | procedure are in the | | | | PDT | | results section. | + +--------+ + + + | SEDIMENTATION RATE, | Routin | 06/26/2016 | | Results for this | | AUTOMATED | e | 12:00 AM | | procedure are in the | | | | PDT | | results section. | + +--------+ + + + | C-REACTIVE PROTEIN | Routin | 06/26/2016 | | Results for this | | | e | 12:00 AM | | procedure are in the | | | | PDT | | results section. | + +--------+ + + + documented in this encounter Results Sedimentation rate, automated (06/26/2016 12:00 AM PDT) + +--------+ + + + | Component | Value | Ref Range | Performed | Pathologist | | | | | At | Signature | + +--------+ + + + | Sed Rate | 35 (A) | 0 - 20 | EXTERNAL | | | | | [...] + +---------+ + + External Lab: CBC (06/26/2016 12:00 AM PDT) + + + + + + | Component | Value | Ref Range | Performed | Pathologist | | | | | At | Signature | + + + + + + | WBC | 4.1 (A) | 4.5 - 11.0 10 | EXTERNAL | | | | | | LAB | | + + + + + + | RED CELL | 4.19 | 3.8 - 5.1 10 | EXTERNAL | | | COUNT | | | LAB | | + + + + + + | Hgb | 12.3 | 12.0 - 16.0 | EXTERNAL | | | | | g/dL | LAB | | + + + + + + | Hematocrit, | 37.5 | 35 - 45 % | EXTERNAL | | | POC | | | LAB | | + + + + + + | MCV | 89.4 | 81 - 99 fL | EXTERNAL | | | | | | LAB | | + + + + + + | MCH | 29 | 27 - 33 pg | EXTERNAL | | | | | | LAB | | + + + + + + | MCHC | 33 | 30 - 36 g/dL | EXTERNAL | | | | | | LAB | | + + + + + + | Platelet | 178 | 140 - 440 K/ L | EXTERNAL | | | Count | | | LAB | | | Plasma | | | | | + + + + + + | RDW-CV | 15.1 (A) | 10.5 - 15.0 % | EXTERNAL | | | | | | LAB | | + + + + + + | MPV | | fL | EXTERNAL | | | | | | LAB | | + + + + + + | Differentia | | | EXTERNAL | | | l Type | | | LAB | | + + + + + + | % Segmented | 65.5 | 39 - 80 % | EXTERNAL | | | | | | LAB | | | Neutrophils | | | | | + + + + + + | % | 24.1 | 24 - 44 % | EXTERNAL | | | Lymphocytes | | | LAB | | + + + + + + | % Monocytes | 8.0 | 0 - 12 % | EXTERNAL | | | | | | LAB | | + + + + + + | % | 1.6 | 0 - 6 % | EXTERNAL | | | Eosinophils | | | LAB | | + + + + + + | % Basophils | 0.8 | 0 - 2 % | EXTERNAL | | | | | | LAB | | + + + + + + | Absolute | | / L | EXTERNAL | | | Segmented | | | LAB | | | Neutrophils | | | | | + + + + + + | Absolute | | / L | EXTERNAL | | | Lymphocytes | | | LAB | | + + + + + + | Absolute | | / L | EXTERNAL | | | Monocytes | | | LAB | | + + + + + + | Absolute | | / L | EXTERNAL | | | Eosinophils | | | LAB | | + + + + + + | Absolute | | / L | EXTERNAL | | | Basophils | [...] | + +---------+ + + C-Reactive Protein (06/26/2016 12:00 AM PDT) + +-------+ + + + | Component | Value | Ref Range | Performed | Pathologist | | | | | At | Signature | + +-------+ + + + | CRP | 4.4 | 0 - 5 mg/dL | EXTERNAL | | | | [...]
--- OUTSIDE RECORDS SUMMARY | ~2019-11-01 | XMS | Encounter Summary ---
Demographics + + + | Address | [address] | | | [place] [address] | + + + | Home Phone | | + + + | Preferred Language | Unknown | + + + | Marital Status | | + + + | Christianity Affiliation | 1001 | + + + | Race | Unknown | + + + | Ethnic Group | Unknown | + + + Author + + + | Author | [facility] | | | and [place]ana | + + + | Organization | [facility] | | | and [...] | [place] | | | | | [address] | | + + + + + Care Team Providers + +------+ + | Care Qual Research Manager Name | Role | Phone | [...] + + | 02/17/ | Hospital | [facility] | Mayra, | Malignant neoplasm | | 2019 | Encounter | MED CTR MEDICAL | Yosi Yee MD [address] | of upper-outer | | | | ONCOLOGY CLINIC [address] | [address] [place] | quadrant of right | | | | [place] | [place] [address] | breast in female, | | | | [place] [address] | [phone] | estrogen receptor | | | | [phone] | | positive (HCC) | +--------+ + [...] 02/17/2019Discontinue anastrozole Wait 2 weeks. 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 Hematology/Oncology Progress Note [facility] Pt. Name/Age/: Yamilet Hernandes 69 y.o. 1950 Med. Record Number: [id number] Date of admission: 02/17/2019 The patient's primary care provider is Maude Means MD. Identifying Statement: Yamilet Hernandes is a 69 y.o. female from [address] [place] [address] with Stage IIA, ER-positive RIGHT breast cancer, status post breast cons erving surgery. The patient chart and medications were reviewed in detail and the patient was seen and exam ined. History of Present Illnesses, their Current Assessments and Plans: Problem List Breast cancer Overview ACTIVE DIAGNOSIS: [id number], Stage IIA, ER-positive, Ki-67 positive, CA-negative, Her-2/n eu negative, Oncotype DX 29, RIGHT breast cancer, status post breast conserving therapy. 1. Presentation in May, with palpable Right breast mass. 2. Bilateral screening mammography at [facility] [place]; 2 cm neodensity i n the upper outer quadrant of the right breast. 3. Right Breast diagnostic mammography and Right breast ultrasound July 15, 2018; 21 x 19 x 25 cm mass in the upper outer quadrant of the right breast. 4. 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 ER 100%, CA negative at 0%, Ki-67 positive 39%, Her -2/savanna negative by FISH. 5. Right partial mastectomy with sentinel lymph node biopsy August 05, 2018 (JANE Lucio). Specimen # [id number] ([employer]): Invasive carcinoma with signet ring features, grade III, without associated DCIS or LVI, 2.3 cm in diameter, without regionally metastatic disea se in a single right axillary sentinel lymph node. Repeat analysis: Estrogen Receptor positi ve at 75%, progesterone receptor negative at 0%, Ki-67 positive at 50%. 6. Family history of breast cancer in both parents. 7. Presentation at the [facility] Conference, August, with recommendations for Oncotype DX testing of the partial mastectomy specimen and germline testing for comprehensive HBOC syndromes. 8. Oncotype DX score 29, Intermediate Risk, revealed on September 19, 2018. 9. HBOC testing (Zettaset) negative, revealed on September 23, 2018; no deleterious muta tions identified. 10. Shared decision-making encounter on September 24, 2018; patient informed of Oncotype DX s core of 29, and declined adjuvant chemotherapy. 10. Adjuvant RIGHT breast radiation therapy 5005 cGy to the right breast in 20 fractions ov er 31 elapsed calendar days, October 06, 2018 through October 31, 2018 at [facility], [place], [place]. 11. Osteoporosis identified at baseline October [...] up with Yamilet in three months at [facility] to review her tolerance to exemestane. [...] Dr Henry, as well, today at the [facility] My chart: Declined Scheduled Medications: Current Outpatient Medications Medication Sig Dispense Refill acetaminophen (TYLENOL) 325 mg tablet Take 650 mg by mouth every 4 hours as needed for Pain. alendronate (FOSAMAX) 70 mg tablet Take 70 mg by mouth every 7 days. apixaban (ELIQUIS) 5 mg tablet Take 1 tablet by mouth 2 times daily. 60 tablet 1 Wdcvzas-Natvuimdizhlx-Phtcwtaf (EXCEDRIN PO) Take 250 mg by mouth [...] US GUIDED BREAST BIOPSY RIGHT - Location: [facility] EXTERNAL IMAGING EGD AND COLONOSCOPY N/A 01/31/2016 Procedure: EGD / COLONOSCOPY; Surgeon: Brett Wing MD; Location: [facility] MEDICAL PROCEDUR E UNIT FOOT [...] Assessment and Plan. Pharmacovigilance: Palliative Care: Procedure: Yois Nunez MD Portions of this chart may have been created with Mineful voice recognition software. Occasi onal wrong-word or [...] | | | | | | ST [place], [place] | | | | | | [address] | | | | | | | | +--------+ + + + + documented as of this encounter Visit Diagnoses + + | Diagnosis | + + | Malignant neoplasm of upper-outer quadrant of right breast in female, estrogen | | receptor positive (HCC) | + + documented in this encounter
--- OUTSIDE RECORDS SUMMARY | ~2019-11-01 | XMS | Encounter Summary ---
Demographics + + + | Address | [address] | | | [place] [address] | + + + | Home Phone | | + + + | Preferred Language | Unknown | + + + | Marital Status | | + + + | Mormon Affiliation | 1001 | + + + | Race | Unknown | + + + | Ethnic Group | Unknown | + + + Author + + + | Author | [facility] | | | and [place] | + + + | Organization | [facility] | | | and [...] [place] | | | | | [address] | | + + + + + Care Team Providers + +------+ + | Care Software Maintenance Engineer Name | Role | Phone | + +------+ + | Maude Means MD | PCP | | + +------+ + Encounter Details +--------+ + + + + | Date | Type | Department | Care Team | Description | +--------+ + + + + | 09/25/ | Hospital | [facility] | Jojo Henry | | | 2018 | Encounter | MED CTR RADIATION | M, MD [address] | | | | | ONCOLOGY [address] | [address] [place], [place] | | | | | [place], | [address] | | | | | [place] [address] | | | | | | [phone] | | | +--------+ + + + [...] [place] | | | | | | [address] | | | | | | | | +--------+ + + + + documented as of this encounter Visit Diagnoses Not on filedocumented in this encounter"
--- OUTSIDE RECORDS SUMMARY | ~2019-11-01 | XMS | Encounter Summary ---
Demographics + + + | Address | [address] | | | [place] [address] | + + + | Home Phone | | + + + | Preferred Language | Unknown | + + + | Marital Status | | + + + | Moravian Affiliation | 1001 | + + + | Race | Unknown | + + + | Ethnic Group | Unknown | + + + Author + + + | Author | [facility] | | | and [place] | + + + | Organization | [facility] | | | and Christianana [...] [place], [place] | | | | | [address] | | + + + + + Care Team Providers + +------+ + | Care Water Treatment Plant Repairer Name | Role | Phone | + +------+ + | Maude Means MD | PCP | | + +------+ + Encounter Details +--------+ + + + + | Date | Type | Department | Care Team | Description | +--------+ + + + + | 09/30/ | Documentati | [facility] | Juanita Key | | | 2018 | on | MED CTR MEDICAL | J, RN | | | | | ONCOLOGY CLINIC [address] | | | | | | [address] | | | | | | [place] [address] | | | | | | [phone] | | | +--------+ + + + [...] of treatment date and schedule; accompanied to [facility] to in itiate request for lodging. 11: [...] [place] | | | | | | [id number] | | | | | | | | +--------+ + + + + documented as of this encounter Visit Diagnoses Not on filedocumented in this encounter"
--- OUTSIDE RECORDS SUMMARY | ~2019-11-01 | XMS | Encounter Summary ---
Demographics + + + | Address | [address] | | | [place] [address] | + + + | Home Phone | | + + + | Preferred Language | Unknown | + + + | Marital Status | | + + + | Pentecostalism Affiliation | 1001 | + + + | Race | Unknown | + + + | Ethnic Group | Unknown | + + + Author + + + | Author | [facility] | | | and [place] | + + + | Organization | [facility] | [...] [place] | | | | | [address] | | + + + + + Care Team Providers + +------+ + | Care Credit Counselor Name | Role | Phone | + +------+ + PCP | Unavailable | + +------+ + Encounter Details +--------+ + + + + | Date | Type | Department | Care Team | Description | +--------+ + + + + | 01/16/ | [facility] | [facility] | Brett Wing MD | | | 1993 | Encounter | MED CTR MP INTRA OP | [address] | | | | | [address] | [address] [place] | | | | | [place] | [address] | | | | | [address] | | | | | | [phone] | | | +--------+ + + + [...] [place] | | | | | | [address] | | | | | | | | +--------+ + + + + documented as of this encounter Visit Diagnoses Not on filedocumented in this encounter"
--- OUTSIDE RECORDS SUMMARY | ~2019-11-01 | XMS | Encounter Summary ---
Demographics + + + | Address | [address] | | | [place] [address] | + + + | Home Phone | | + + + | Preferred Language | Unknown | + + + | Marital Status | | + + + | Confucianist Affiliation | 1001 | + + + | Race | Unknown | + + + | Ethnic Group | Unknown | + + + Author + + + | Author | [facility] | | | and [place] | + + + | Organization | [facility] | | | and [place] | [...] | [place] | | | | | [address] | | + + + + + Care Team Providers + +------+ + | Care Insolvency Consultant Name | Role | Phone | + +------+ + | Maude Means MD | PCP | | + +------+ + Reason for Visit + + + | Reason | Comments | + + + | Psychosocial Support | | + + + Encounter Details +--------+ + + + + | Date | Type | Department | Care Team | Description | +--------+ + + + + | 09/25/ | Telephone | [facility] | Preston Canseco, | Psychosocial Support | | 2018 | | MED CTR MEDICAL | [facility] | | | | | ONCOLOGY CLINIC [address] | | | | | | [address] | | | | | | [place] [address] | | | | | | [phone] | | | +--------+ + + + [...] 06/24/ | Appointment | Radiation Oncology | oJjo Henry | | | 2019 | | | MD Jessica [address] | | | | | | [place] | | | | | | [address] | | | | | | | | +--------+ + + + + documented as of this encounter Visit Diagnoses Not on filedocumented in this encounter"
--- OUTSIDE RECORDS SUMMARY | ~2019-11-01 | XMS | Encounter Summary ---
Demographics + + + | Address | [address] | | | [place] [address] | + + + | Home Phone | | + + + | Preferred Language | Unknown | + + + | Marital Status | | + + + | Nondenominational Affiliation | 1001 | + + + | Race | Unknown | + + + | Ethnic Group | Unknown | + + + Author + + + | Author | [facility] | | | and [place] | + + + | Organization | [facility] | | | [...] [place] | | | | | [address] | | + + + + + Care Team Providers + +------+ + | Care Hand Shaper Name | Role | Phone | + [...] 2016 | | GASTROENTEROLOGY | [address] [place] | | | | | [address] [place] | [address] [place], [place] | | | | | [address] [place], [place] | [address] | | | | | [address] | | | | | | [phone] | | | +--------+ + + + [...] [place] | | | | | | [place] | | | | | | [address] | | | | | | | | +--------+ + + + + documented as of this encounter Visit Diagnoses Not on filedocumented in this encounter"
--- OUTSIDE RECORDS SUMMARY | ~2019-11-01 | XMS | Encounter Summary ---
Demographics + + + | Address | [address] | | | [place] [address] | + + + | Home Phone | | + + + | Preferred Language | Unknown | + + + | Marital Status | | + + + | Baptism Affiliation | 1001 | + + + | Race | Unknown | + + + | Ethnic Group | Unknown | + + + Author + + + | Author | [facility] | | | and [place] | + + + | Organization | [facility] | | | and [place] [...] | [place] | | | | | [address] | | + + + + + Care Team Providers + +------+ + | Care Dehydrator Name | Role | Phone | + +------+ + | Puneet Donovan MD | PCP | | + +------+ + Encounter Details +--------+ + + + + | Date | Type | Department | Care Team | Description | +--------+ + + + + | 12/31/ | [facility] | [facility] | Bhavesh Lomax MD | Back pain, | | 2018 | Encounter | MED CTR XRAY [address] | [address] | unspecified back | | | | [place] | [place] [address] | location, | | | | [place] [address] | [phone] | unspecified back | | | | [phone] | | pain laterality, | | | [...] | | | | | | [facility] [place] | | | | | | [address] | | | | | | | | +--------+ + + + + documented as of this encounter Visit Diagnoses + + | Diagnosis | + + | Back pain, unspecified back location, unspecified back pain laterality, unspecified | | chronicity | + + documented in this encounter"
--- OUTSIDE RECORDS SUMMARY | ~2019-11-01 | XMS | Encounter Summary ---
Demographics + + + | Address | [address] | | | [place] [address] | + + + | Home Phone | | + + + | Preferred Language | Unknown | + + + | Marital Status | | + + + | Christianity Affiliation | 1001 | + + + | Race | Unknown | + + + | Ethnic Group | Unknown | + + + Author + + + | Author | [facility] | | | and [place] | + + + | Organization | [facility] | | | and [place] | + + + | Address | Unknown | + + + | Phone | Unavailable | + + + Support + + + + + | Name | Relationship | Address | Phone | + + + + + | Bhavesh Hernandes | ECON | [address] | | | | | [place], [place] | | | | | [address] | | + + + + + Care Team Providers + +------+ + | Care Bus Attendant Name | Role | Phone | + +------+ + PCP | Unavailable | + +------+ + Encounter Details +--------+ + + + + | Date | Type | Department | Care Team | Description | +--------+ + + + + | 04/19/ | [facility] | [facility] | Brett Wing MD | | | 1997 | Encounter | MED CTR GENERIC OP | [address] | | | | | CONV DEPT [address] | [address] | | | | | [place], | [address] | | | | | [place] [address] | | | | | | [phone] | | | +--------+ + + + [...] [place] | | | | | | [address] | | | | | | | | +--------+ + + + + documented as of this encounter Visit Diagnoses Not on filedocumented in this encounter"
--- OUTSIDE RECORDS SUMMARY | ~2019-11-01 | XMS | Encounter Summary ---
Demographics + + + | Address | [address] | | | [place] [address] | + + + | Home Phone | | + + + | Preferred Language | Unknown | + + + | Marital Status | | + + + | Congregational Affiliation | 1001 | + + + | Race | Unknown | + + + | Ethnic Group | Unknown | + + + Author + + + | Author | [facility] | | | and [place] | + + + | Organization | [facility] | | | and [...] [place], [place] | | | | | [address] | | + + + + + Care Team Providers + +------+ + | Care Finisher Special Stocks Name | Role | Phone | + +------+ + PCP | Unavailable | + +------+ + Encounter Details +--------+ + + + + | Date | Type | Department | Care Team | Description | +--------+ + + + + | 06/03/ | [facility] | [facility] | Brett Wing MD | | | 2000 | Encounter | MED CTR GENERIC OP | [address] | | | | | CONV DEPT [address] | [address] | | | | | [place], | [address] | | | | | [place] [address] | | | | | | [phone] | | | +--------+ + + + [...] [place] | | | | | | [address] | | | | | | | | +--------+ + + + + documented as of this encounter Visit Diagnoses Not on filedocumented in this encounter"
--- OUTSIDE RECORDS SUMMARY | ~2019-11-01 | XMS | Encounter Summary ---
Demographics + + + | Address | [address] | | | [place] [address] | + + + | Home Phone | | + + + | Preferred Language | Unknown | + + + | Marital Status | | + + + | Sabianism Affiliation | 1001 | + + + | Race | Unknown | + + + | Ethnic Group | Unknown | + + + Author + + + | Author | [facility] | | | and [place] | + + + | Organization | [facility] | [...] | [place] | | | | | [address] | | + + + + + Care Team Providers + +------+ + | Care Asphalt Distributor Tender Name | Role | Phone | [...] | +--------+ + + + + | 10/09/ | Hospital | [facility] | Jojo Henry | Malignant neoplasm | | 2018 | Encounter | MED CTR RADIATION | MD Jessica [address] | of right breast in | | | | [facility] [address] | [place], [place] | female, estrogen | | | | [address] | [address] | receptor positive, | | | | [place] [address] | | unspecified site of | | | | [phone] | | breast (HCC) | | | [...] + + + | Blood Pressure | 134/77 | 10/09/2018 10:10 AM | | | | | PST | | + + + + + | Pulse | 73 | 10/09/2018 10:10 AM | | | | | PST | | + + + + + | Temperature | 36.1 C (97 F) | 10/09/2018 10:10 AM | | | | | PST | | + + + + + | Respiratory Rate | 16 | 10/09/2018 10:10 AM | | | | | PST | | + + + + + | Oxygen Saturation | 97% | 10/09/2018 10:10 AM | | | | | PST | | + + + + + | Inhaled Oxygen | - | - | | | Concentration | | | | + + + + + | Weight | 98.1 kg (216 lb 4.3 | 10/09/2018 10:10 AM | | | | oz) | PST | | + + + + + | Height | - | - | | + + + + + | Body Mass Index | 35.6 | 09/03/2018 12:49 PM | | | [...] documented as of this encounter Progress Notes Tiffanie Coelho RN - 10/09/2018 10:17 AM PSTMet with patient today for nurse education. Verbal and written education given to patient regarding general radiation therapy side effe cts as well as site specific side effects. Samples of 'My Girls' provided to patient. Revsat process of OT for their doctor, all questions at this time were answered. Jojo Chandra MD - 10/09/2018 10:14 AM PST Radiation Oncology Weekly On Treatment Note Diagnosis: ICD-10-CM ICD-9-CM 1. Malignant neoplasm of right breast in female, estrogen receptor positive, unspecified si te of breast (HCC) C50.911 174.9 Z17.0 V86.0 Reason for visit: On treatment evaluation Radiation technical factors: Dose Delivered Dose Planned Fractions Delivered 1068 cGy 4005 cGy 02/02 Images were reviewed this week and results [...] mouth 2 times daily. 60 tablet 1 Vwcsigb-Wwuhwojanxhng-Ineedsnm (EXCEDRIN PO) Take 250 mg by mouth [...] facility-administered medications on file prior to encounter. 10/09/18 1013 General Disorders and Administration Site Conditions Fatigue 1 - Grade 1 Performance Status Karnofsky Performance Score 80% Pain assessment: Location: Lower back Pain Level: PAIN PROG PAIN LEVEL: 3 Pain Quality: Aching Current pain regimen: acetaminophen prn Wt Readings from Last 3 Encounters: 10/09/18 98.1 kg (216 lb 4.3 oz) 09/16/18 99.6 kg (219 lb 9.3 oz) 09/03/18 99.3 kg (218 lb 14.7 oz) Vitals: 10/09/18 1010 BP: 134/77 Pulse: 73 Resp: 16 Temp: 36.1 C (97 F) TempSrc: Temporal SpO2: 97% Weight: 98.1 kg (216 lb 4.3 oz) Physical Exam Constitutional: She appears well-developed and well-nourished. Neurological: She is alert. Skin: No rash noted. No erythema. Psychiatric: She has a normal mood and affect. Physician Assessment: Yamilet started radiation this week. She notes mild fatigue. Her chronic back pain is ex acerbated by the treatment position, though she is able to manage with tylenol. Toxicities reviewed in nursing note. Disposition: Continue radiation treatment as planned. Skin care with emollient lotion. Jojo Henry MD Radiation Oncologist documented in [...] | | | | | [address] [place], [place] | | | | | | [address] | | | | | | | | +--------+ + + + + documented as of this encounter Visit Diagnoses + + | Diagnosis | + + | Malignant neoplasm of right breast in female, estrogen receptor positive, unspecified | | site of breast (HCC) - Primary | + + documented in this encounter"
--- OUTSIDE RECORDS SUMMARY | ~2019-11-01 | XMS | Clinical Summary ---
Demographics + + + | Address | [address] | | | [place] [address] | + + + | Home Phone | | + + + | Preferred Language | Unknown | + + + | Marital Status | | + + + | Holiness Affiliation | 1001 | + + + | Race | Unknown | + + + | Ethnic Group | Unknown | + + + Author + + + | Author | [facility] | | | and Christianana | + + + | Organization | [facility] | | [...] [place] | | | | | [address] | | + + + + + Care Team Providers + +------+ + | Care Furniture Upholsterer Name | Role | Phone | + +------+ + | Maude Means MD | PCP | | + +------+ + Allergies + + + + + + | Active Allergy | Reactions | Severity | Noted | Comments | | | | | Date | | + + + + + + | Anastrozole | Other (See Comments) | | 02/18/20 | Joint pain | | | | | 19 | | + + + + + + | Aspirin | | | 01/29/20 | History of colitis | | | | | 16 | | + + + + + + | Azathioprine | Nausea And Vomiting | | 01/29/20 | | | | | | 16 | | + + + + + + | Azithromycin | Nausea And Vomiting | | 01/29/20 | | | | | | 16 | | + + + + + + | Celecoxib | | | 01/29/20 | | | | | | 16 | | + + + + + + | Codeine | Nausea And Vomiting | | 01/29/20 | | | | | | 16 | | + + + + + + | Erythromycin | Nausea And Vomiting | | 01/29/20 | | | | | | 16 | | + + + + + + | Fish Oil | Rash | Low | 01/29/20 | Aka Glucosamine | | | | | 16 | | + + + + + + | Gabapentin | | | 01/29/20 | | | | | | 16 | | + + + + + + | Hydrocodone | Nausea And Vomiting | | 01/29/20 | | | | | | 16 | | + + + + + + | Ibuprofen | | | 04/08/09 | | | | | | 16 | | + + + + + + | Meloxicam | | | 04/08/09 | | | | | | 16 | | + + + + + + | Mesalamine | | | 04/08/09 | | | | | | 16 | | + + + + + + | Orphenadrine | | | 04/20 | | | | | | 16 | | + + + + + + | Oxycodone | Nausea And Vomiting | | 04/10/20 | | | | | | 16 | | + + + + + + | Penicillins | Rash | Medium | 04/10/20 | | | | | | 16 | | + + + + + + | Shellfish | Rash | Medium | 04/10/20 | | | | | | 16 | | + + + + + + | Sulfa Antibiotics | Rash | Medium | 04/10/20 | | | | | | 16 | | + + + + + + Medications + + + +---------+------+------+-------+ | Medication | Sig | Dispensed | Refills | Star | End | Statu | | | | | | t | Date | s | | | | | | Date | | | + + + +---------+------+------+-------+ | apixaban (ELIQUIS) | Take 1 tablet by | 60 | 1 | 04/1 | | Activ | | 5 mg tablet | mouth 2 times daily. | tablet | | 6/20 | | e | | | | | | 16 | | | + + + +---------+------+------+-------+ | magnesium oxide | Take 1 tablet by | 30 | 1 | 04/1 | | Activ | | (MAG-OX) 400 mg | mouth Daily. | tablet | | 7/20 | | e | | tablet | | | | 16 | | | + + + +---------+------+------+-------+ | potassium chloride | Take 1 tablet by | 60 | 1 | 01/19 | | Activ | | (K-DUR) 20 mEq ER | mouth daily (with | tablet | | 05/09 | | e | | tablet | breakfast). | | | 16 | | | + + + +---------+------+------+-------+ | metoprolol | Take 3 tablets by | 90 | 1 | 01/19 | | Activ | | succinate | mouth Daily. | tablet | | 04/09 | | e | | (TOPROL-XL) 50 mg 24 | | | | 16 | | | | hr tablet | | | | | | | + + + +---------+------+------+-------+ +---+ + | | Additional | | | informationPatient | | | taking differently: | | | 50 mg Oral DAILY, | | | Reported on | | | 09/03/2018 12:30 PM | +---+ + + + +---+---+------+---+-------+ | loratadine | Take 10 mg by mouth. | | 0 | | | Activ | | (CLARITIN) 10 mg | | | | | | e | | tablet | | | | | | | + + +---+---+------+---+-------+ | Calcium Citrate | Take 500 mg by mouth | | 0 | | | Activ | | (CITRACAL PO) | 2 times daily. | | | | | e | + + +---+---+------+---+-------+ | acetaminophen | Take 650 mg by mouth | | 0 | | | Activ | | (TYLENOL) 325 mg | every 4 hours as | | | | | e | | tablet | needed for Pain. | | | | | | + + +---+---+------+---+-------+ | alendronate | Take 70 mg by mouth | | 0 | | | Activ | | (FOSAMAX) 70 mg | every 7 days. | | | | | e | | tablet | | | | | | | + + +---+---+------+---+-------+ | | Take 250 mg by mouth | | 0 | | | Activ | | Aspirin-Acetaminophe | as needed. | | | | | e | | n-Caffeine (EXCEDRIN | | | | | | | | PO) | | | | | | | + + +---+---+------+---+-------+ | raNITIdine | Take 150 mg by mouth | | 0 | | | Activ | | (ZANTAC) 150 mg | nightly. | | | | | e | | tablet | | | | | | | + + +---+---+------+---+-------+ | tamoxifen | Take 20 mg by mouth | | 0 | 10/2 | | Activ | | (NOLVADEX) 20 MG | Daily. | | | 0/20 | | e | | tablet | | | | 19 | | | + + +---+---+------+---+-------+ Active Problems + + + | Problem | Noted Date | + + + | Breast cancer | 09/20/2018 | + + + + + | Cancer Staging: Pathologic: Stage IIA (pT2, pN0, cM0, G3, ER: | | Positive, AZ: Negative, HER2: Negative) - Signed by Jojo Lopez | | MD Carl on 09/20/2018 | + + | Overview: ACTIVE DIAGNOSIS: [id number], Stage IIA, | | ER-positive, Ki-67 positive, AZ-negative, Her-2/savanna negative, | | Oncotype DX 29, RIGHT breast cancer, status post breast | | conserving therapy. 1. Presentation in May, with palpable | | Right breast mass.2. Bilateral screening mammography at . | | [facility]; 2 cm neodensity in the upper | | outer quadrant of the right breast.3. Right Breast diagnostic | | mammography and Right breast ultrasound July 15, 2018; 21 x | | 19 x 25 cm mass in the upper outer quadrant of the right | | breast.4. 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 ER 100%, AZ negative at | | 0%, Ki-67 positive 39%, Her-2/savanna negative by FISH.5. Right | | partial mastectomy with sentinel lymph node biopsy August 05, | | 2018 (JANE Lucio). Specimen # [id number] (Ana Ferreira): | | Invasive carcinoma with signet ring features, grade III, without | | associated DCIS or LVI, 2.3 cm in diameter, without regionally | | metastatic disease in a single right axillary sentinel lymph | | node. Repeat analysis: Estrogen Receptor positive at 75%, | | progesterone receptor negative at 0%, Ki-67 positive at 50%.6. | | Family history of breast cancer in both parents.7. Presentation | | at the [facility] Conference, | | September 02, 2018, with recommendations for Oncotype DX testing | | of the partial mastectomy specimen and germline testing for | | comprehensive HBOC syndromes.8. Oncotype DX score 29, | | Intermediate Risk, revealed on September 19, 2018.9. HBOC testing | | ([employer]) negative, revealed on September 23, 2018; no | | deleterious mutations identified.10. Shared decision-making | | encounter on September 24, 2018; patient informed of Oncotype DX | | score of 29, and declined adjuvant chemotherapy. 10. Adjuvant | | RIGHT breast radiation therapy 5005 cGy to the right breast in 20 | | fractions over 31 elapsed calendar days, October 06, 2018 | | through October 31, 2018 at [facility] | | [place], [place], [place].11. Osteoporosis identified at baseline | | October 10, 2017; T scores; -1.4 for the spine L1-L4, -2.9 for | | the right femoral neck, -3.1 for the left femoral neck with | | immediate initiaton of therapy with calcium/vitamin D and | | aledronate 70 mg orally weekly.12. Initiation of adjuvant | | endocrine therapy with anastrozole 1 mg orally daily on October | | 2018, complicated by intractable bone pain. Last Assessment | | & Plan: Yamilet Hernandes returned to clinic on 02/17/2019 | | for follow up after three months of adjuvant endocrine therapy | | with anastrozole for Stage IIA, ER-positive RIGHT breast | | cancer.Review of systems is notable for severe joint pain since | | starting anastrozole.Clinical exam is notable for the fact that | | Yamilet Hernandes is walking very slowly with a cane.No new | | laboratory data to review.No new imaging data to | | review.Assessment; Stage IIA, ER-positive, Oncotype DX 29, | | her-2/savanna negative RIGHT breast cancer status post breast | | conserving therapy.Intolerance to anastrozole.Plan; Discontinue | | anastrozole. Wait two weeks, then cross over to exemestane 25 mg | | orally daily.I will follow up with Yamilet in three months at | | [facility] in [place], [place] to review her | | tolerance to exemestane. | + + + + + | Spondylolisthesis of lumbar region | 12/31/2017 | + + + | Foraminal stenosis of lumbar region | 12/31/2017 | + + + | Other idiopathic scoliosis, lumbar region | 12/31/2017 | + + + | Lumbar facet arthropathy | 12/31/2017 | + + + | Postural deformity | 12/31/2017 | + + + | Thoracic kyphosis | 12/31/2017 | + + + | Emmy's ring of distal esophagus | 02/04/2016 | + + + | Cough | 01/30/2016 | + + + + + | Last Assessment & Plan: - Has had significant cough for some | | time, c/o worsening dysphagia- Start on famotidine for possible | | GERD today, has history of hiatal hernia- EGD tomorrow to | | investigate dysphagia/weight loss- CT showed no consolidation or | | PE | | | |- CT showed no consolidation or PE | + + + + + | Dysphagia | 01/30/2016 | + + + | Discitis | 01/29/2016 | + + + + + | Last Assessment & Plan: - Denies fevers, back pain greatly | | improved- Discussed with Dr Hagan at [facility], who is covering | | Dr. Reddy's patients, recommended discussing | | leukopenia/thrombocytopenia with him tomorrow, continue | | ceftriaxone for now | + + + + + | Atrial fibrillation with RVR | 01/29/2016 | + + + + + | Last Assessment & Plan: - Likely the cause of her shortness | | of breath, weakness, lightheadedness over the last 4-5 days- No | | prior diagnosis of any sort of heart disease- Troponins negative | | overnight- HR well controlled on only 5 of diltiazem drip, switch | | to carvedilol this morning and titrate up if needed for rate | | control- Started on apixaban but will hold for today in | | anticipation of EGD/colonoscopy tomorrow- TSH normal, echo | | pending- Chest CT did not show acute disease in the chest | |- Started on apixaban but will hold for today in anticipation of EGD/colonoscopy tomorrow | | | |- TSH normal, echo pending | | | |- Chest CT did not show acute disease in the chest | + + + + + | Ulcerative colitis without complications | 01/29/2016 | + + + + + | Last Assessment & Plan: - Takes no meds- Needs follow up with | | GI for colonoscopy, hasn't had colonoscopy since 2005- Having | | some diarrhea, but c diff toxin negative- ESR/CRP negative- | | Discussed with Dr. Wing, given the occasional blood in the | | stool, the ~ 40 pound weight loss, needs colonoscopy and will | | prep today for scope tomorrow | |- ESR/CRP negative | | | |- Discussed with Dr. Wing, given the occasional blood in the stool, the ~ 40 pound weight loss, needs colonoscopy and will prep today for scope tomorrow | + + + + + | Hyponatremia | 01/29/2016 | + + + + + | Last Assessment & Plan: - Improved with fluids, Na 135 this | | morning, no acute issues | + + Resolved Problems + + + + | Problem | Noted | Resolved | | | Date | Date | + + + + | Rectal bleeding | 01/31/20 | | | | 16 | 6 | + + + + | Leukopenia | 01/29/20 | | | | 16 | 6 | + + + + + + | Last Assessment & Plan: - WBC of 2.3 and falling | | | | - 3 last week, but was normal prior to that | | | | - ESR/CRP normal | | | | - Discuss holding ceftriaxone with Dr. Barry jensenorrjazzmine | + + Encounters +--------+ + + + + | Date | Type | Specialty | Care Team | Description | +--------+ + + + + | [facility] | Radiation Oncology | Jojo Henry | Malignant neoplasm | | 2019 | Encounter | | M, MD | of upper-outer | | | | | | quadrant of right | | | | | | breast in [...] patient | +--------+ + + + + from Last 3 Months Immunizations + + + + | Name | Administration Dates | Next Due | + + + + | PNEUMOCOCCAL | 06/09/2018 | | | CONJUGATE 13-VALENT | | | | (PCV13) | | | + + + + | TDAP, (ADOL/ADULT) | 06/09/2018 | | + + + + Family History + + +--------+ + | Medical History | Relation | Name | Comments | + + +--------+ + | Heart arrhythmias | Brother | | | + + +--------+ + | Liver disease | Brother | | | + + +--------+ + | Arthritis | Father | | | + + +--------+ + | Breast cancer | Father | | | + + +--------+ + | Cancer | Father | | | + + +--------+ + | Diabetes | Father | | | + + +--------+ + | Stomach cancer | Maternal | | | | | Aunt | | | + + +--------+ + | Heart attack | Maternal | | | | | Grandfath | | | | | er | | | + + +--------+ + | Arthritis | Maternal | | | | | Grandmoth | | | | | er | | | + + +--------+ + | Breast cancer | Mother | | | + + +--------+ + | Heart failure | Mother | | | + + +--------+ + | High blood pressure | Mother | | | + + +--------+ + | Premature CHD | Mother | | | + + +--------+ + | Breast cancer | Other | cousin | | + + +--------+ + | Cancer | Paternal | | prostate | | | Grandfath | | | | | er | | | + + +--------+ + | Stroke | Paternal | | | | | Grandfath | | | | | er | | | + + +--------+ + | Arthritis | Paternal | | | | | Grandmoth | | | | | er | | | + + +--------+ + | Congenital heart | Paternal | | | | disease | Grandmoth | | | | | er | | | + + +--------+ + | Diabetes | Paternal | | | | | Grandmoth | | | | | er | | | + + +--------+ + + +--------+ + + | Relation | Name | Status | Comments | + +--------+ + + | Brother | | | | + +--------+ + + | Father | | | | + +--------+ + + | Maternal Aunt | | | | + +--------+ + + | Maternal Grandfather | | | | + +--------+ + + | Maternal Grandmother | | | | + +--------+ + + | Mother | | Alive | | + +--------+ + + | Other | cousin | Alive | | + +--------+ + + | Paternal Grandfather | | | | + +--------+ + + | Paternal Grandmother | | | | + +--------+ + + Social History + +-------+ +--------+------+ [...] recent travel history available. | + + Last Filed Vital Signs + + + [...] | | + + + + + Plan of Treatment +--------+ + + + + | Date | Type | Specialty | Care Team | Description | +--------+ + + + + | 06/24/ | Appointment | Radiation Oncology | Jojo Henry | | | 2019 | | | MD Unruly [address] | | | | | | [place] | | | | | | [address] | | | | | | | | +--------+ + + + + + + + + + | Health Maintenance | Due Date | Last Done | Comments | + + + + + | Hepatitis C | | | | | Screening | 1 | | | + + + + + | Vaccine: Zoster (1 | | | | | of 2) | 1 | | | + + + + + | Adult Annual | | | | | Wellness Visit | 5 | | | + + + + + | Vaccine: | | 06/09/2018 | | | Pneumococcal 65+ (2 | 9 | | | | of 2 - PPSV23) | | | | + + + + + | Breast Cancer | | 06/18/2018 | | | Screening | 0 | | | + + + + + | Vaccine: | | 06/09/2018 | | | Dtap/Tdap/Td (2 - | 8 | | | | Td) | | | | + + + + + | Vaccine: Influenza | Completed | 08/10/2019 | | + + + + + Results Not on filefrom Last 3 Months Insurance + +--------+ +--------+ +---------+--------+ | Payer | Benefi | Subscriber | Effect | Phone | Address | Type | | | t Plan | ID | eulalia | | | | | | / | | Dates | | | | | | Group | | | | | | + +--------+ +--------+ +---------+--------+ | MEDICARE | MEDICA | [id number] | 01/20/20 | [phone] | | Medica | | | RE | | 16-Pre | 5 | | re | | | PART A | | sent | | | | | | AND B | | | | | | + +--------+ +--------+ +---------+--------+ | AARP | AARP | [id number] | 01/20/20 | [phone] | | Indemn | | | MDCR | | 16-Pre | 0 | | ity | | | SUPPL | | sent | | | | + +--------+ +--------+ +---------+--------+ + +--------+ +--------+ + + | Guarantor Name | Accoun | Relation to | Date | Phone | Billing Address | | | t Type | Patient | of | | | | | | | | | | + +--------+ +--------+ + + | Yamilet Hernandes | Person | Self | [birth year] | | [address] | | [place] | al/Jerzy | | 1950 | [phone] | [place], [place] | | | [place] | | | 2 (Home) | [address] | + +--------+ +--------+ + + Advance Directives + + + + + | Type | Date Recorded | Patient | Explanation | | | | Industrial Electrician Journeyman | | + + + + + | Power of | | | | | Sugar Plantation Manager | | | | + + + + + | Advance | 01/29/2016 12:53 | | | | Directive | PM | | | + + + + + + + + + + | Code Status | Date | Date | Comments | | | Activated | Inactivated | | + + + + + | Full Code | 01/30/2016 | 02/04/2016 | | | | 8:21 AM | 8:10 PM | | + + + + +
--- OUTSIDE RECORDS SUMMARY | ~2019-11-01 | XMS | Encounter Summary ---
Demographics + + + | Address | [address] | | | [place] [address] | + + + | Home Phone | | + + + | Preferred Language | Unknown | + + + | Marital Status | | + + + | Congregational Affiliation | 1001 | + + + | Race | Unknown | + + + | Ethnic Group | Unknown | + + + Author + + + | Author | [facility] | | | and Christianana | + + + | Organization | [facility] | | | and [place] | [...] [place], [place] | | | | | [address] | | + + + + + Care Team Providers + +------+ + | Care Air Quality Technician Name | Role | Phone | [...] Kenny Pina | | | | | [phone] | [place] [address] | | +--------+ + + + + [...] | | | | [facility] [place] | | | | | | [address] | | | | | | | [...] for comparison only - no result from [place]. | | + + + + +---------+ + + | Performing | Address | City/State/Zipcode | Phone Number | | Organization | | | | + +---------+ + + | [facility] | | | | + +---------+ + + documented in this encounter Visit Diagnoses Not on filedocumented in this encounter"
--- OUTSIDE RECORDS SUMMARY | ~2019-11-01 | XMS | Encounter Summary ---
Demographics + + + | Address | [address] | | | [place] [address] | + + + | Home Phone | | + + + | Preferred Language | Unknown | + + + | Marital Status | | + + + | Restorationism Affiliation | 1001 | + + + | Race | Unknown | + + + | Ethnic Group | Unknown | + + + Author + + + | Author | [facility] | | | and Christianana | + + + | Organization | [facility] | | | and [...] | [place] | | | | | [address] | | + + + + + Care Team Providers + +------+ + | Care Rigging Supervisor Name | Role | Phone | [...] Yee MD | | | | | [place] OFFICE | [address] | [address] | | | | | OUTPATIENT | [address] | [address] [place] | | | | | [address] | [place], | [place], [place] | | | | | MINUTES | [place] [address] | [address] Phone: | | | | | | Phone: | [phone] | | | | | | [phone] | Fax: | | | | | | Fax: | [phone] | | | | | | [phone] | | +--------+ + + + + + Encounter Details +--------+ + + + + | Date | Type | Department | Care Team | Description | +--------+ + + + + | 09/16/ | Hospital | [facility] | Mayra, | Malignant neoplasm | | 2018 | Encounter | [facility] | Yosi Yee MD [address] | of upper-outer | | | | [facility] CLINIC [address] [place] | quadrant of right | | | | [address] [place] | [place] [address] | breast in female, | | | | [place] [address] | [phone] | estrogen receptor | | | | [phone] | | positive (HCC) | +--------+ + [...] from the original. Hematology/Oncology Progress Note [facility] [place] Pt. Name/Age/: Yamilet Romo Greta 68 y.o. 1950 Med. Record Number: [id number] Date of admission: 09/16/2018 The patient's primary care provider is Maude Means MD. Identifying Statement: Yamilet Hernandes is a 68 y.o. female from [address] [place] [address] with Stage IIA, ER-positive RIGHT breast cancer, status post breast cons erving surgery. The patient chart and medications were reviewed in detail and the patient was seen and exam ined. History of Present Illnesses, their Current Assessments and Plans: Problem List Breast cancer Overview ACTIVE DIAGNOSIS: [id number], Stage IIA, ER-positive, Ki-67 positive, MA-negative, Her-2/n eu negative RIGHT breast cancer, status post breast conserving therapy. 1. Presentation in May, with palpable Right breast mass. 2. Bilateral screening mammography at [facility]; 2 cm neodensity i n the upper outer quadrant of the right breast. 3. Right Breast diagnostic mammography and Right breast ultrasound July 15, 2018; 21 x 19 x 25 cm mass in the upper outer quadrant of the right breast. 4. RIGHT breast upper outer quadrant image guided biopsy (JANE Hawkins) on July 28, 2018; Specimen # [id number] (Ana Ferreira); Grade 3 invasive ductal carcinoma with signet ring f eatures, without associated DCIS or LVI. ER 100%, MA negative at 0%, Ki-67 positive 39%, Her -2/savanna negative by FISH. 5. Right partial mastectomy with sentinel lymph node biopsy August 05, 2018 (JANE Lucio). Specimen # [id number] (Ana Ferreira): Invasive carcinoma with signet ring features, grade III, without associated DCIS or LVI, 2.3 cm in diameter, without regionally metastatic disea se in a single right axillary sentinel lymph node. Repeat analysis: Estrogen Receptor positi ve at 75%, progesterone receptor negative at 0%, Ki-67 positive at 50%. 6. Family history of breast cancer in both parents. 7. Presentation at the [facility] Conference, August, with recommendations for Oncotype DX testing of the partial mastectomy specimen and germline testing for comprehensive HBOC syndromes. Current Assessment & Plan I met with Yamilet Hernandes and her , Bhavesh, on 09/16/2018, referred by [address] [place] [address] for evaluation and management of S tage IIA, ER-positive RIGHT breast cancer status post breast conserving surgery. We reviewed her presentation with a palpable right breast mass, her imaging studies confirm ing a suspicious neodensity in the right upper outer quadrant, biopsy confirming high grade ER-positive, MA-negative, Ki-67 positive, Her-2/savanna negative breast cancer, and her successf ul right breast conserving surgery by Dr. Orville Lucio. We reviewed her very unique family history of invasive breast cancer in both of her parents . We reviewed her medical history for osteoporosis (DEXA scan last performed 10/10/2017) and compression fractures at T11, T12 and L1. We reviewed the recommendations from the [facility] Lily thacker on September [...] mouth 2 times daily. 60 tablet 1 Wccjcwr-Clmnicqsfnzfw-Qztuklep (EXCEDRIN PO) Take 250 mg by mouth [...] US GUIDED BREAST BIOPSY RIGHT - Location: [facility] EXTERNAL IMAGING EGD AND COLONOSCOPY N/A 01/31/2016 Procedure: EGD / COLONOSCOPY; Surgeon: Brett Wing MD; Location: [facility] MEDICAL PROCEDUR E UNIT FOOT [...] this chart may have been created with [employer] voice recognition software. Occasi onal wrong-word or [...] | | | | | | [place], [place] | | | | | | [...]
--- OUTSIDE RECORDS SUMMARY | ~2019-11-01 | XMS | Encounter Summary ---
Demographics + + + | Address | [address] | | | [place] [address] | + + + | Home Phone | | + + + | Preferred Language | Unknown | + + + | Marital Status | | + + + | Lutheran Affiliation | 1001 | + + + | Race | Unknown | + + + | Ethnic Group | Unknown | + + + Author + + + | Author | [facility] | | | and Christianana | + + + | Organization | [facility] | [...] [place], [place] | | | | | [address] | | + + + + + Care Team Providers + +------+ + | Care Pediatric Immunologist Name | Role | Phone | + +------+ + | Maude Means MD | PCP | | + +------+ + Encounter Details +--------+ + + + + | Date | Type | Department | Care Team | Description | +--------+ + + + + | 11/03/ | Documentati | [facility] | Ronna Andrade | | | 2019 | on | MED CNT ONCOLOGY | A, OT | | | | | THERAPY [address] | | | | | | [address] [place], | | | | | | [place] [address] | | | | | | [phone] | | | +--------+ + + + [...] [place] | | | | | | [place], [place] | | | | | | [address] | | | | | | | | +--------+ + + + + documented as of this encounter Visit Diagnoses Not on filedocumented in this encounter"
--- OUTSIDE RECORDS SUMMARY | ~2019-11-01 | XMS | Encounter Summary ---
Demographics + + + | Address | [address] | | | [place] [address] | + + + | Home Phone | | + + + | Preferred Language | Unknown | + + + | Marital Status | | + + + | Sabianist Affiliation | 1001 | + + + | Race | Unknown | + + + | Ethnic Group | Unknown | + + + Author + + + | Author | [facility] | | | and Christianana | + + + | Organization | [facility] | | | and [...] [place], [place] | | | | | [address] | | + + + + + Care Team Providers + +------+ + | Care Storage Brine Worker Name | Role | Phone | [...] Unknown | | | | | [place] | [phone] | | | | | [address] | | | | | | [phone] | | | +--------+ + + + [...] [place] | | | | | | [address] | | | | | | | [...]
--- OUTSIDE RECORDS SUMMARY | ~2019-11-01 | XMS | Encounter Summary ---
Demographics + + + | Address | [address] | | | [place] [address] | + + + | Home Phone | | + + + | Preferred Language | Unknown | + + + | Marital Status | | + + + | Advent Affiliation | 1001 | + + + | Race | Unknown | + + + | Ethnic Group | Unknown | + + + Author + + + | Author | [facility] | | | and [place] | + + + | Organization | [facility] | | | and [...] [place], [place] | | | | | [address] | | + + + + + Care Team Providers + +------+ + | Care Nurse Name | Role | Phone | + +------+ + | Maude Means MD | PCP | | + +------+ + Encounter Details +--------+ + + + + | Date | Type | Department | Care Team | Description | +--------+ + + + + | 06/26/ | Orders Only | [facility] | Conversion | | | 2015 | | INFECTIOUS DISEASE | Transaction, | | | | | [address] | Provider Unknown | | | | | [facility] [place] | [phone] | | | | | [address] | | | | | | [phone] | | | +--------+ + + + [...] | | | | | | [address] [place], [place] | | | | | | [address] | | | | | | | [...]
--- OUTSIDE RECORDS SUMMARY | ~2019-11-01 | XMS | Encounter Summary ---
Demographics + + + | Address | [address] | | | [place] [address] | + + + | Home Phone [...] + | Author | [facility] | | | and [place] | + + + | Organization | [facility] | | | and [place]ana [...] [place] | | | | | [address] | | + + + + + Care Team Providers + +------+ + | Care Export Traffic Department Manager Name | Role | Phone | + +------+ + | Maude Means MD | PCP | | + +------+ + Encounter Details +--------+ + + + + | Date | Type | Department | Care Team | Description | +--------+ + + + + | 10/26/ | Hospital | [facility] | Jojo Henry | | | 2019 | Encounter | MED [facility] RAD[facility]ATION | M, MD [address] | | | | | ONCOLOGY [address] [place], [place] | | | | | [place], | [address] | | | | | [place] [address] | | | | | | [phone] | | | +--------+ + + + [...] [place] | | | | | | [address] | | | | | | | | +--------+ + + + + documented as of this encounter Visit Diagnoses Not on filedocumented in this encounter"
--- OUTSIDE RECORDS SUMMARY | ~2019-11-01 | XMS | Encounter Summary ---
Demographics + + + | Address | [address] | | | [place] [address] | + + + | Home Phone [...] | Author | [facility] | | | and Christianana | + + + | Organization | [facility] | | | and Christianana | [...] | [place] | | | | | [address] | | + + + + + Care Team Providers + +------+ + | Care Wood Repatcher Name | Role | Phone | + [...] + + | 06/02/ | Office | [facility] | Yury Hand, | Foraminal stenosis | | 2018 | Visit | PHYSIATRY [address] | PA-C [address] | of lumbar region | | | | [place], | [address] [place] | (Primary Dx); | | | | [place] [address] | [place] [address] | Spondylolisthesis of | | | | [phone] | [phone] | lumbar region; | | | | [...] disk, and irritate nerves. Date Last Reviewed: 08/07/201519997611-4462 [employer]. [address] [place] [address]. All righ ts reserved. This information is not intended as a substitute for professional medical care. Always follow your healthcare professional's instructions. documented in this encounter Progress Notes Yury Hand PA-C - 06/02/2018 3:30 PM PDTFormatting of this note might be different fro m the original. [address] [facility], [address] [place] [id number] FAX: PHYSICAL MEDICINE AND REHABILITATION H&P CHIEF COMPLAINT: Chief Complaint Patient presents with Follow-up Physical Therapy HISTORY OF PRESENT ILLNESS: Yamilet Hernandes s a 68 y.o. female [facility] for the complaint of [...] / COLONOSCOPY; Surgeon: Brett Wing MD; Location: [facility]ED[facility] E UNIT FOOT SURGERY Right [...] mouth 2 times daily. 60 tablet 1 Hojajnf-Aonsnsgewggzn-Pplanstc (EXCEDRIN PO) Take 250 mg by mouth [...] has no apparent deficits with short or snf memory. 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 It appears to me that t he [...] [place] | | | | | | [facility] [place] | | | | | | [id number] [...]
--- OUTSIDE RECORDS SUMMARY | ~2019-11-01 | XMS | Encounter Summary ---
Demographics + + + | Address | [address] | | | [place] [address] | + + + | Home Phone [...] Author | [facility] | | | and Christianana | + + + | Organization | [facility] | | | and [...] | [place] | | | | | [address] | | + + + + + Care Team Providers + +------+ + | Care Telephone Operator Receptionist Name | Role | Phone | + [...] + + + + | 09/04/ | Telephone | [facility] | Yoana Poe RN | Testing | | 2018 | | [facility] | | | | | | [facility]OG[facility] CLINIC [address] | | | | | | [address] | | | | | | [place] [address] | | | | | | [phone] | | | +--------+ + + + [...] [place] | | | | | | [address] | | | | | | | | +--------+ + + + + documented as of this encounter Visit Diagnoses Not on filedocumented in this encounter"
--- OUTSIDE RECORDS SUMMARY | ~2019-11-01 | XMS | Clinical Summary ---
Demographics + + + | Address | [address] | | | [place] [address] | + + + | Home Phone | | + + + | Preferred Language | Unknown | + + + | Marital Status | | + + + | Zoroastrianism Affiliation | 1001 | + + + | Race | Unknown | + + + | Ethnic Group | Unknown | + + + Author + + + | Author | [facility] [employer] (Historical as of | | | 06-06-19) | + + + | Organization | [facility] [employer] (Historical as of | | | 06-06-19) | + + + | Address | Unknown | + + + | Phone | Unavailable | + + + Support + + +---------+ + | Name | Relationship | Address | Phone | + + +---------+ + | Bhavesh Berg | ECON | Unknown | | + + +---------+ + Care Team Providers + +------+ + | Care Rod Placer Name | Role | Phone | + +------+ + | Puneet Donovan MD | PP | Unavailable | + +------+ + Allergies + + + + + + | Active Allergy | Reactions | Severity | Noted | Comments | | | | | Date | | + + + + + + | Aspirin | GI Bleed | High | 01/04/20 | | | | | | 16 | | + + + + + + | Azathioprine | Rash | Medium | 01/04/20 | | | | | | 16 | | + + + + + + | Azithromycin | Rash | Medium | 03/16/20 | | | | | | 16 | | + + + + + + | Celecoxib | Rash | Medium | 03/16/20 | | | | | | 16 | | + + + + + + | Codeine | Nausea and Vomiting | Low | 03/16/20 | | | | | | 16 | | + + + + + + | Erythromycin | Rash | Medium | 03/16/20 | | | | | | 16 | | + + + + + + | Fish Oil | Rash | Medium | 03/16/20 | | | | | | 16 | | + + + + + + | Gabapentin | Rash | Medium | 03/16/20 | | | | | | 16 | | + + + + + + | Nutritional | Rash | Medium | /16/20 | | | Supplements | | | 16 | | + + + + + + | Hydrocodone | Nausea and Vomiting | Low | 20 | | | | | | 16 | | + + + + + + | Ibuprofen | GI Bleed | High | /16/20 | | | | | | 16 | | + + + + + + | Meloxicam | Rash | Medium | 03/16/20 | | | | | | 16 | | + + + + + + | Mesalamine | Rash | Medium | 03/16/20 | | | | | | 16 | | + + + + + + | Orphenadrine | Rash | Medium | 03/16/20 | | | | | | 16 | | + + + + + + | Oxycodone | Nausea and Vomiting | Low | 03/16/20 | | | | | | 16 | | + + + + + + | Penicillins | Rash | Medium | 03/16/20 | | | | | | 16 | | + + + + + + | Shellfish-Derived | Rash | Medium | 03/16/20 | | | Products | | | 16 | | + + + + + + | Sulfa Antibiotics | Rash | Medium | 01/04/20 | | | | | | 16 | | + + + + + + Current Medications + + + +---------+------+------+-------+ | Prescription | Sig. | Disp. | Refills | Star | End | Statu | | | | | | t | Date | s | | | | | | Date | | | + + + +---------+------+------+-------+ | HYDROmorphone | Take 4 mg by mouth | | | | | Activ | | (DILAUDID) 4 MG | every 4 (four) hours | | | | | e | | tablet | as needed for Pain. | | | | | | + + + +---------+------+------+-------+ | cyclobenzaprine | Take 10 mg by mouth | | | | | Activ | | (FLEXERIL) 10 MG | 3 (three) times | | | | | e | | tablet | daily as needed for | | | | | | | | Muscle spasms. | | | | | | + + + +---------+------+------+-------+ | traMADol (ULTRAM) | Take 50 mg by mouth | | | | | Activ | | 50 MG tablet | every 6 (six) hours | | | | | e | | | as needed for Pain. | | | | | | + + + +---------+------+------+-------+ | diclofenac | Apply 2 g topically | 1 Tube | 0 | 03/2 | | Activ | | (VOLTAREN) 1 % | 4 (four) times | | | 1/20 | | e | | | daily. | | | 16 | | | + + + +---------+------+------+-------+ | potassium chloride | Take 20 mEq by mouth | | | | | Activ | | (K-TAB) 10 MEQ CR | daily with | | | | | e | | tablet | breakfast. | | | | | | + + + +---------+------+------+-------+ | magnesium oxide | Take 400 mg by mouth | | | | | Activ | | (MAG-OX) 400 MG | daily. | | | | | e | | tablet | | | | | | | + + + +---------+------+------+-------+ | metoprolol | Take 50 mg by mouth | | | | | Activ | | (TOPROL-XL) 50 MG 24 | daily. | | | | | e | | hr tablet | | | | | | | + + + +---------+------+------+-------+ | famotidine | Take 20 mg by mouth | | | | | Activ | | (PEPCID) 20 MG | 2 (two) times daily | | | | | e | | tablet | as needed. | | | | | | + + + +---------+------+------+-------+ | apixaban (ELIQUIS) | Take 5 mg by mouth 2 | | | | | Activ | | 5 MG tablet | (two) times daily. | | | | | e | + + + +---------+------+------+-------+ | loratadine | Take 10 mg by mouth | | | | | Activ | | (CLARITIN) 10 MG | daily as needed for | | | | | e | | tablet | Allergies. | | | | | | + + + +---------+------+------+-------+ Active Problems + + + | Problem | Noted Date | + + + | Moderate protein-calorie malnutrition (HCC) | 01/05/2016 | + + + | Discitis of lumbar region | 01/04/2016 | + + + | Osteoarthritis | 01/04/2016 | + + + | H/O total knee replacement | 01/04/2016 | + + + | Ulcerative colitis (HCC) | 01/04/2016 | + + + Social History + +-------+ [...] on file | | + + + Last Filed Vital Signs + + + + | Vital Sign | Reading | Time Taken | + + + + | Blood Pressure | 97/70 | 06/28/2016 10:47 AM PDT | + + + + | Pulse | 64 | 06/28/2016 10:47 AM PDT | + + + + | Temperature | 36.7 C (98 F) | 06/28/2016 10:47 AM PDT | + + + + | Respiratory Rate | 16 | 06/28/2016 10:47 AM PDT | + + + + | Oxygen Saturation | 97% | 06/28/2016 10:47 AM PDT | + + + + | Inhaled Oxygen | - | - | | Concentration | | | + + + + | Weight | 85.3 kg (188 lb) | 06/28/2016 10:47 AM PDT | + + + + | Height | 162.6 cm (5' 4") | 01/04/2016 6:24 PM PDT | + + + + | Body Mass Index | 32.27 | 06/28/2016 10:47 AM PDT | + + + + Plan of Treatment + + + + + | Health Maintenance | Due Date | Last Done | Comments | + + + + + | Vaccine: | | | | | Dtap/Tdap/Td (1 - | 0 | | | | Tdap) | | | | + + + + + | Vaccine: Zoster (1 | | | | | of 2) | 1 | | | + + + + + | DEXA SCAN SCREENING | | | | | | 6 | | | + + + + + | Vaccine: | | | | | Pneumococcal 65+ | 6 | | | | Low/Medium Risk (1 | | | | | of 2 - PCV13) | | | | + + + + + | Vaccine: Influenza | | | | | (#1) | 9 | | | + + + + + Results Not on filefrom Last 3 Months Insurance + +--------+ +------+-------+ + | Payer | Benefi | Subscriber | Type | Phone | Address | | | t Plan | ID | | | | | | / | | | | | | | Group | | | | | + +--------+ +------+-------+ + | MEDICARE | MEDICA | [id number] | | | [address] | | | RE | | | | [place] [address] | | | IP-OP | | | | | + +--------+ +------+-------+ + | [employer] | UNITED | [id number] | | | | | | | | | | | | | HEALTH | | | | | | | CARE - | | | | | | | AARP | | | | | + +--------+ +------+-------+ + + +--------+ +--------+ + + | Guarantor Name | Accoun | Relation to | Date | Phone | Billing Address | | | t Type | Patient | of | | | | | | | | | | + +--------+ +--------+ + + | YAMILET BERG | Person | Self [birth year] Home: | [address] | | | al/Fam | | 1 | [phone] | [place] | | | [place] | | | [phone] | [address] | + +--------+ +--------+ + +
--- OUTSIDE RECORDS SUMMARY | ~2019-11-01 | XMS | Encounter Summary ---
Demographics + + + | Address | [address] | | | [place] [address] | + + + | Home Phone | | + + + | Preferred Language | Unknown | + + + | Marital Status | | + + + | Taoist Affiliation | 1001 | + + + | Race | Unknown | + + + | Ethnic Group | Unknown | + + + Author + + + | Author | [facility] | | | and Christianana | + + + | Organization | [facility] | | | and [...] | [place] | | | | | [address] | | + + + + + Care Team Providers + +------+ + | Care Billposter Name | Role | Phone | + [...] | Gastroenterol | Diagnoses | Harri, | Harri, | | | Services | ogy | Other | Brett Blanc MD | Brett Blanc MD | | | Required | | ulcerative | [address], | | | | | colitis with | [address], [place] | [address] | | | | | | [address] [place] | [place], | | | | | complication | [place], [place] | [place] [address] | | | | | (HCC) | [address] | Phone: | | | | | Procedures | Phone: | [phone] | | | | | [place] | [phone] | Fax: | | | | | SIGMOIDOSCOP | Fax: | [phone] | | | | | Y FLX DX | [phone] | | | | | | W/COLLJ SPEC | | | | | | | BR/WA IF | | | | | | | PFRMD [place] | | | | | | | OFFICE | | | | | | | OUTPATIENT | | | | | | | VISIT 10 | | | | | | | MINUTES | | | +--------+ + + + + + Reason for Visit + + + | Reason | Comments | + + + | Appointment | | + + + Encounter Details +--------+ + + + + | Date | Type | Department | Care Team | Description | +--------+ + + + + | 02/23/ | Telephone | [facility] | Brett Wing MD | Appointment | | 2015 | | GASTROENTEROLOGY | [address], [place] | | | | | [address] [place] | [address] [place], [place] | | | | | [address] [place], [place] | [address] | | | | | [address] | | | | | | [phone] | | | +--------+ + + + [...] [place] | | | | | | [place] | | | | | | [address] | | | | | | | | +--------+ + + + + + + +--------+ + + | Name | Type | Priori | Associated Diagnoses | Order Schedule | | | | ty | | | + + +--------+ + + | Ambulatory referral | Outpatient | Routin | Other ulcerative | Expected: | | to Gastroenterology | Referral | e | colitis with | 03/06/2016, Expires: | | (wilson) | | | complication (HCC) | 02/23/2017 | + + +--------+ + + documented as of this encounter Visit Diagnoses + + | Diagnosis | + + | Other ulcerative colitis with complication (HCC) - Primary | + + documented in this encounter"
--- OUTSIDE RECORDS SUMMARY | ~2019-11-01 | XMS | Encounter Summary ---
Demographics + + + | Address | [address] | | | [place] [address] | + + + | Home Phone | | + + + | Preferred Language | Unknown | + + + | Marital Status | | + + + | Buddhist Affiliation | [id number] | + + + | Race | Unknown | + + + | Ethnic Group | Unknown | + + + Author + + + | Author | [facility] | | | and Christianana | + + + | Organization | [facility] [...] [place], [place] | | | | | [address] | | + + + + + Care Team Providers + +------+ + | Care Solar Designer Name | Role | Phone | + +------+ + PCP | Unavailable | + +------+ + Encounter Details +--------+ + + + + | Date | Type | Department | Care Team | Description | +--------+ + + + + | 01/03/ | [facility] | [facility] | Christiano Morrell | Discitis of lumbar | | 2016 - | Encounter | [facility] [address] | MD [address] | region | | | | [address] | [address] [place], [place] | | | 01/08/ | | [place], [place] | [address] | | | 2015 | | [id number] | | | | | | [phone] | | | +--------+ + + + [...] + + + | Blood Pressure | 123/61 | 01/09/2016 11:52 AM | | | | | PDT | | + + + + + | Pulse | 71 | 01/09/2016 11:52 AM | | | | | PDT | | + + + + + | Temperature | 36.4 C (97.6 F) | 01/09/2016 11:52 AM | | | | | PDT | | + + + + + | Respiratory Rate | 18 | 01/09/2016 11:52 AM | | | | | PDT | | + + + + + | Oxygen Saturation | - | - | | + + + + + | Inhaled Oxygen | - | - | | | Concentration | | | | + + + + + | Weight | 77.2 kg (170 lb 4.8 | 01/09/2016 11:52 AM | | | | oz) | PDT | | + + + + + | Height | 162.6 cm (5' 4") | 01/09/2016 11:52 AM | | | | | PDT | | + + + + + | Body Mass Index | 29.23 | 01/09/2016 11:52 AM | | | | | PDT | | + + + + + documented in this encounter Discharge Summaries Bhavesh Ramires MD - 01/09/2016 8:43 AM PDTFormatting of this note might be diff erent from the original. Discharge Summaries by Bhavesh Ramires MD at 01/09/16 0843 Author: Bhavesh Ramires MD Service: Hospitalist Author Type: Physician Filed: 01/09/16 1827 Date of Service: 01/09/16 0843 Status: Signed Issuing Operator: Bhavesh Ramires MD (Physician) Patient: Yamilet Hernandes : 1950 Date of Admission: 01/04/2016 Date of Discharge: 01/09/2016 Treatment Team: Consulting Physician: Reyna Hagan MD Consulting Physician: Carlee Lentz MD Consulting Physician: Juan Vickers MD Admitting Provider: Chrsitiano Morrell MD Discharging Provider: Bhavesh Ramires MD Discharge Diagnoses: Principal Problem: Discitis of lumbar region Active Problems: Osteoarthritis H/O total knee replacement Ulcerative colitis (HCC) Moderate protein-calorie malnutrition (HCC) Resolved Problems: * No resolved hospital problems. * Procedures Performed: Chief Complaint: No chief complaint on file. Hospital Course: As per Dr. Yohannes valdez H And P" Yamilet Hernandes is a 65 y.o. female with significant past medical history of ulcerative col itis and osteoarthritis, patient had right Total knee replacement on December 26, 2015. She had spinal anesthesia at that time, Then shortly after surgery, over past week, she started comp laining of progressive lower back pain, now she couldn't walk because of back pain that gets worse with movement. She presented to [facility] ED, where she had MRI spine, that was reported as Discitis and possible inflammatory process/osteomyelitis lumbar spine. Dr Lentz was called from ED and patient was transferred to out hospital for Neurosurgery c onsult and Infectious disease on 01/04/[address]. [address] Burnett of neurosurgery reviewed the MRI, he did not think any surgical intervention was needed, infectious disease was cons ulted and it was decided that the patient will continue with IV antibiotic therapy for the p resumptive discitis for 6 weeks, patient improved over the course of her hospital stay to wo rk by the time of discharge was only taking oral pain medication, was able to ambulate, arra ngements were able to be made for the patient continue to receive her IV antibiotic therapy for the next 6 weeks at the hospital in [place] and the patient was then discharged. Discharge Exam and Data: Vital Signs: BP 123/69 mmHg | Pulse 69 | Temp(Src) 97.5 F (36.4 C) (Oral) | Resp 18 | Ht 1.626 m (5' 4") | Wt 77.248 kg (170 lb 4.8 oz) | BMI 29.22 kg/m2 | SpO2 96% | ? No General Appearance: Alert, cooperative, no distress, appears stated age Head: Normocephalic, without obvious abnormality, atraumatic Eyes: PERRL, conjunctiva/corneas clear, EOM's intact, Ears: Normal external ear canals, both ears Nose: Nares normal, septum midline, mucosa normal, no drainage or sinus tenderness Throat: Lips, mucosa, and tongue normal; teeth and gums normal Neck: Supple, symmetrical, trachea midline, no adenopathy; thyroid: no enlargement/tenderness/nodules; no carotid bruit or JVD Back: Symmetric, no curvature, tenderness on palpation back restricted ROM, no CVA tendern ess Lungs: Clear to auscultation bilaterally, respirations unlabored Chest Wall: No tenderness or deformity Heart: Regular rate and rhythm, S1 and S2 normal, no murmur, rub or gallop Abdomen: Soft, non-tender, bowel sounds active all four quadrants, no masses, no organomegaly Extremities: Extremities left leg incision site from her total knee repair is scabbed over , only slight areas of erythema along with a physician edges, no discharge. It is not warmer than other me. Trace bipedal edema. No numbness. Pulses: 2+ and symmetric all extremities Skin: Skin color, texture, turgor normal, no rashes or lesions Lymph nodes: Cervical, supraclavicular, and axillary nodes normal Neurologic: CNII-XII intact, normal strength, no numbness lower extremities and reflexes throughout Recent Labs Recent Labs Lab 01/07/16 0331 WBC 5.04 HGB 10.1* HCT 30.6* PLT 271 Recent Labs Lab 01/05/16 0529 NA 134* K 4.0 CL 98* CO2 25 BUN 6* CREATININE 0.53 Recent Labs Lab 01/05/16 0529 INR 1.1 Recent Radiology Results No results found. Outstanding Issues: Patient Active Hospital Problem List: Discitis of lumbar region (01/04/2016) According to Dr. Burnett of neurosurgery who has seen patient no drainable fluid collection or surgical indications. As discussed with infectious diseases, we will continue to monitor blood cultures, patient will continue with IV ceftriaxone, will monitor for clinical response, as well as repeat inf lammatory markers tomorrow . as recommended by neurosurgery, and as per ID Plan is to treat presumptive early discitis for 6 weeks, at this point outpatient antibiotic therapy is attem pting to be set up at [facility] in [place], will have Weekly CMP, CBC, ESr a nd CRP while on ABX to be sent to Dr. Cuellar Osteoarthritis (01/04/2016) Pain medication as needed patient is allergic and has GI bleed with aspirin and ibuprofen. H/O total knee replacement (01/04/2016) COntineu pain medication as previously keep appointment with Dr. Pop luis 01/10/2016 as previously Ulcerative colitis (HCC) (01/04/2016) Not active advised patietn that PCP could refer her to GI Moderate protein-calorie malnutrition (HCC) (01/05/2016) Increase food intake Discharge Information: Follow up: Discharge Instructions CBC W/Auto Diff (Reflex to Manual) Standing Status: Future Standing Exp. Date: 01/06/17 Order Comments: STANDING ORDER: Please draw weekly while on IV antibiotics. Comprehensive metabolic panel Standing Status: Future Standing Exp. Date: 01/06/17 Order Comments: STANDING ORDER: Please draw weekly while on IV antibiotics. Sedimentation rate, automated Standing Status: Future Standing Exp. Date: 01/06/17 Order Comments: STANDING ORDER: Please draw weekly while on IV antibiotics. C-reactive protein Standing Status: Future Standing Exp. Date: 01/06/17 Order Comments: STANDING ORDER: Please draw weekly while on IV antibiotics. Diet General Activity as Advised by Physical Therapy Order Comments: As advised after knee surgery Activity as Tolerated Order Comments: As advised after knee surery, fall precautions Call MD for: Temperature > 100.4F (38C) Call MD for: Persistant Nausea and Vomiting Call MD for: Severe Uncontrolled Pain Call MD for: Redness, Tenderness, or Signs of Infection (Pain, Swelling, Redness, Odor or Green/Yellow Discharge Around Incision Site) Marco Cuellar DO [address] [facility] [address] On 01/16/2016 Medication List START taking these medications Acetaminophen 650 MG Tabs QTY: 30 tablet Refills: 0 Take 650 mg by mouth every 6 (six) hours as needed. cefTRIAXone 1 G Solr QTY: 39 each Refills: 0 Commonly known as: ROCEPHIN Inject 2,000 mg into the vein daily. diclofenac 1 % QTY: 1 Tube Refills: 0 Commonly known as: VOLTAREN Apply 2 g topically 4 (four) times daily. lidocaine 5 % QTY: 30 patch Refills: 1 Commonly known as: LIDODERM Place 2 patches onto the skin daily. nystatin [id number] UNIT/ML suspension QTY: 200 mL Refills: 0 Commonly known as: MYCOSTATIN Take 5 mLs by mouth 4 (four) times daily. ondansetron 4 MG tablet QTY: 20 tablet Refills: 0 Commonly known as: ZOFRAN Take 1 tablet by mouth every 6 (six) hours as needed. polyethylene glycol packet QTY: 14 each Refills: 0 Doctor's comments: Daily While taking pain medication to prevent costipation, dont take if stools watery Commonly known as: GLYCOLAX Take 17 g by mouth daily as needed. CONTINUE taking these medications cyclobenzaprine 10 MG tablet Refills: 0 Commonly known as: FLEXERIL HYDROmorphone 4 MG tablet Refills: 0 Commonly known as: DILAUDID traMADol 50 MG tablet Refills: 0 Commonly known as: ULTRAM Where to Get Your Medications These are the prescriptions that you need to parts picker. You may get the following medications from any pharmacy - Acetaminophen 650 MG Tabs - cefTRIAXone 1 G Solr - lidocaine 5 % - nystatin [id number] UNIT/ML suspension - ondansetron 4 MG tablet - polyethylene glycol packet Information on where to get these meds is not yet available. Ask your nurse or doctor. - diclofenac 1 % Disposition: Home Condition: Stable Code Status: Full Code An After Visit Summary was printed and given to the patient. Patient verbalized understanding, agreement, and compliance with discharge plan. Discharge took more than 35 minutes, to include final examination, discussion of admission , and preparation of prescriptions, instructions for on-going care, follow-up and documentat ion of discharge summary. Bhavesh Ramires 8:43 AM documented in this encounter Progress Notes Conversion Transaction, Provider Unknown - 01/09/2016 1:20 PM PDTFormatting of this note m ight be different from the original. Nurse Progress Note by Valerie Perkins RN at 01/09/16 1320 Author: Valerie Perkins RN Service: (none) Author Type: Registered Nurse Filed: 01/09/16 1321 Date of Service: 01/09/16 1320 Status: Signed Issuing Operator: Valerie Perkins RN (Registered Nurse) Patient leaving via private vehicle with her spouse for home self care. All discharge instr uctions discussed. Patients questions asked and answered. Scripts given. Katheryn special education case manager setup outpatient abx. Marco Gregory DO - 01/08/2016 10:28 AM PDTFormatting of this note might be different from the lyndsey gilaura. Progress Notes by Marco Cuellar DO at 01/08/16 1028 Author: Marco Cuellar DO Service: (none) Author Type: Physician Filed: 01/08/16 1058 Date of Service: 01/08/16 1028 Status: Signed Issuing Operator: Marco Cuellar DO (Physician) [facility] Service: Infectious Disease Progress Note Hospital Day: LOS: 4 days Post-Op Day: * No surgery found * SUBJECTIVE Patient Summary: 65 y.o. female with significant past medical history of ulcerative colitis, currently quiesced and, osteoarthritis, status post right total knee replacement [facility] on December 26, 2015. Should spinal anesthesia at that time. After surgery, she states hav ing progressive lower back pain, making it difficult for her to walk. MRI of the spine done at [facility] was reported as showing discitis, possible osteomyel itis at her lumbar spine. Dr. Lentz, who was call for neurosurgery on 01/03 had been contact ed. At the time of her transfer to [facility], she was reportedly afebrile, hemodynamically stab le with normal WBC. Inflammatory markers have been requested which are now resulted to be in creased. Blood cultures have been sent on 01/03. MRSA nasal PCR came back negative. The origi nal plan was to hold off on antibiotics while awaiting aspiration from the disc space, but i nterventional radiology was not available to do the procedure in a reasonable period of time . Due to the elevated inflammatory markers, the patient was started on Rocephin on January 04. CC: back pain Chart reviewed: No new events. Subjective The patient reports that her back pain continues to improve, very mild at this point. She i s bothered more by her left knee when walking. She has been told that it may be tomorrow bef ore she can be discharged due to logistical issues in coordinating her treatment at her [facility]. ROS No fever, chills sweats. No nausea, vomiting or diarrhea. No rashes or pruritis. No oral pa in. Scheduled Medications cefTRIAXone 2 g Intravenous Q24H diclofenac 2 g Topical 4x Daily lidocaine 2 patch Transdermal Daily lidocaine buffered 1% 0.5 mL Intradermal Once methocarbamol 500 mg Oral 4x Daily nystatin 5 mL Oral 4x Daily sodium chloride 10 mL Intravenous 2 times per day Continuous Infusions PRN Medications acetaminophen OR acetaminophen, cyclobenzaprine, HYDROmorphone, ondansetron OR onda nsetron, polyethylene glycol, sodium chloride, zolpidem OBJECTIVE Vital Signs: BP 113/68 mmHg | Pulse 64 | Temp(Src) 98 F (36.7 C) (Oral) | Resp 19 | Ht 1.626 m (5' 4 ") | Wt 77.248 kg (170 lb 4.8 oz) | BMI 29.22 kg/m2 | SpO2 95% | ? No Temp (24hrs), Av.8 F (36.6 C), Min:97.3 F (36.3 C), Max:98.4 F (36.9 C) Exam: Const: Vitals reviewed. No acute distress Skin: No rashes, no edema ENT: No thrush. Lungs: CTAB, no rales or wheezes Heart: RRR, no murmur Abd: soft, NT, + bowel sounds Musculoskeletal: Left knee incision healing well, no erythema. DATA CBC: Lab Results Component Value Date WBC 5.04 01/07/2016 RBC 3.51* 01/07/2016 HGB 10.1* 01/07/2016 HCT 30.6* 01/07/2016 MCV 87.2 01/07/2016 MCH 28.7 01/07/2016 MCHC 32.9 01/07/2016 RDW 45.1 01/07/2016 PLT 271 01/07/2016 MPV 7.0 01/07/2016 DIFFTYPE AUTOMATED 01/07/2016 CMP: Lab Results Component Value Date NA 134* 01/05/2016 K 4.0 01/05/2016 CL 98* 01/05/2016 CO2 25 01/05/2016 ANIONGAP 15 01/05/2016 GLUF 83 01/05/2016 BUN 6* 01/05/2016 CREATININE 0.53 01/05/2016 BCR 11 01/05/2016 CA 9.9 01/05/2016 EGFR >60 01/05/2016 Microbiology: Blood cultures negative 2 so far. MRSA screen negative. PROBLEM LIST Principal Problem: Discitis of lumbar region Active Problems: Osteoarthritis H/O total knee replacement Ulcerative colitis (HCC) Moderate protein-calorie malnutrition (HCC) ASSESSMENT & PLAN Lumbar back pain after spinal anesthesia -abnormal MRI findings at L2-3, not clearly discitis. No evidence of spinal abscess. -Patient is afebrile. WBC is normal. ESR and CRP are both markedly elevated. -There was no interventional radiologist project controls specialist when patient was admitted, so no direction . He obtained although the yield would have been low due to absence of fluid collection. Blo od cultures negative so far. Continue ceftriaxone, noting that the patient has had improveme nt in pain, inflammatory markers also showing significant improvement. anticipate 6 weeks of intravenous antibiotics. History of allergy to penicillin, sulfas and azithromycin S/p TKR, bilateral; left done in early December -no signs of infection Ulcerative colitis -not on immunosuppressive Rx -reportedly quiescent but patient did report having blood in the stool with in the past wee k, now improving. Disposition: Anticipate discharge tomorrow. I have written for PICC line placement and intr avenous Rocephin for a total of 6 weeks, which will be completed on February 14. Follow-up in t ID clinic during the week of February 15. Please call with any further questions. Code Status: Full Code MARCO CUELLAR DO 01/08/2016 Bhavesh Gasca MD - 01/08/2016 9:40 AM PDT . Progress Notes by Bhavesh Ramires MD at 01/08/16 6079 Author: Bhavesh Ramires MD Service: Hospitalist Author Type: Physician Filed: 01/08/16 1409 Date of Service: 01/08/16939 Status: Signed Issuing Operator: Bhavesh Ramires MD (Physician) [facility] Service: Hospitalist Progress Note Hospital Day: LOS: 4 days Post-Op Day: * No surgery found * SUBJECTIVE Patient Summary: Events Overnight: Patient seen and examined at bedside and follow-up, overnight to nicolasa shiva has been afebrile, her back pain is improved rated 4 to 5 on oral pain meds, otherwise she has no chest pain, no shortness of breath, nausea no vomiting, she been able to move fr om her bed to bathroom but it hurts a lot so she has to have a commode placed. Patient has n ot had any numbness or weakness in any of her lower extremities. She has had no loss of mahin l or urinary function. No vomiting or any diarrhea. Scheduled Medications cefTRIAXone 2 g Intravenous Q24H diclofenac 2 g Topical 4x Daily lidocaine 2 patch Transdermal Daily lidocaine buffered 1% 0.5 mL Intradermal Once methocarbamol 500 mg Oral 4x Daily nystatin 5 mL Oral 4x Daily sodium chloride 10 mL Intravenous 2 times per day Continuous Infusions PRN Medications acetaminophen OR acetaminophen, cyclobenzaprine, HYDROmorphone, ondansetron OR onda nsetron, polyethylene glycol, sodium chloride, zolpidem OBJECTIVE Vital Signs: BP 113/68 mmHg | Pulse 64 | Temp(Src) 98 F (36.7 C) (Oral) | Resp 19 | Ht 1.626 m (5' 4 ") | Wt 77.248 kg (170 lb 4.8 oz) | BMI 29.22 kg/m2 | SpO2 95% | ? No General Appearance: Alert, cooperative, no distress, appears stated age Head: Normocephalic, without obvious abnormality, atraumatic Eyes: PERRL, conjunctiva/corneas clear, EOM's intact, Ears: Normal external ear canals, both ears Nose: Nares normal, septum midline, mucosa normal, no drainage or sinus tenderness Throat: Lips, mucosa, and tongue normal; teeth and gums normal Neck: Supple, symmetrical, trachea midline, no adenopathy; thyroid: no enlargement/tenderness/nodules; no carotid bruit or JVD Back: Symmetric, no curvature, tenderness on palpation back restricted ROM, no CVA tend erness Lungs: Clear to auscultation bilaterally, respirations unlabored Chest Wall: No tenderness or deformity Heart: Regular rate and rhythm, S1 and S2 normal, no murmur, rub or gallop Abdomen: Soft, non-tender, bowel sounds active all four quadrants, no masses, no organomegaly Extremities: Extremities left leg incision site from her total knee repair is scabbed ove r, only slight areas of erythema along with a physician edges, no discharge. It is not warme r than other me. Trace bipedal edema. No numbness. Pulses: 2+ and symmetric all extremities Skin: Skin color, texture, turgor normal, no rashes or lesions Lymph nodes: Cervical, supraclavicular, and axillary nodes normal Neurologic: CNII-XII intact, normal strength, no numbness lower extremities and reflexes throughout DATA CBC: Lab Results Component Value Date WBC 5.04 01/07/2016 RBC 3.51* 01/07/2016 HGB 10.1* 01/07/2016 HCT 30.6* 01/07/2016 MCV 87.2 01/07/2016 MCH 28.7 01/07/2016 MCHC 32.9 01/07/2016 RDW 45.1 01/07/2016 PLT 271 01/07/2016 MPV 7.0 01/07/2016 DIFFTYPE AUTOMATED 01/07/2016 CMP: Lab Results Component Value Date NA 134* 01/05/2016 K 4.0 01/05/2016 CL 98* 01/05/2016 CO2 25 01/05/2016 ANIONGAP 15 01/05/2016 GLUF 83 01/05/2016 BUN 6* 01/05/2016 CREATININE 0.53 01/05/2016 BCR 11 01/05/2016 CA 9.9 01/05/2016 EGFR >60 01/05/2016 Calcium: No results found for: CALCIUM Magnesium: Lab Results Component Value Date MG 1.7 01/05/2016 Phosphorus: Lab Results Component Value Date PHOS 4.3 01/05/2016 PT/INR: Lab Results Component Value Date INR 1.1 01/05/2016 PTT: Lab Results Component Value Date APTT 31 01/05/2016 [APTT} No results found. PROBLEM LIST Principal Problem: Discitis of lumbar region Active Problems: Osteoarthritis H/O total knee replacement Ulcerative colitis (HCC) Moderate protein-calorie malnutrition (HCC) ASSESSMENT & PLAN Patient Active Hospital Problem List: Discitis of lumbar region (01/04/2016) Assessment: According to Dr. Burnett of neurosurgery who has seen patient no drainable flu id collection or surgical indications. Plan: As discussed with infectious diseases, we will continue to monitor blood cultures, patient will continue with IV ceftriaxone, will monitor for clinical response, as well as re peat inflammatory markers tomorrow . as recommended by neurosurgery, and as per ID Plan is t o treat presumptive early discitis for 6 weeks, at this point outpatient antibiotic therapy is attempting to be set up at [facility] in [place], hopefully we will be able to have that set up tomorrow. Osteoarthritis (01/04/2016) Assessment: Chronic Plan: Pain medication as needed patient is allergic and has GI bleed with aspirin and ibu profen. H/O total knee replacement (01/04/2016) Assessment: o signs of infection Plan: Continue to monitor Ulcerative colitis (HCC) (01/04/2016) Assessment: doubt exacerbation given no abdominal symptoms as well stool was solid Plan: Continue to monitor Moderate protein-calorie malnutrition (HCC) (01/05/2016) Assessment: Chronic Plan: Increase food intake I explained radiology and lab findings and plan of care to patient and she verbalized under standing and agreement and had no more questions for me after my interaction with her. More than 25 minutes spent directly face to face with patient and more than 65% spent for physic al examination and talking with patient. Number at bedside, on chart review, coordinating ca re with other providers, formulating a plan of care and management as well as Computerized P hysician Equal Opportunity Assistant. Dictation software, [employer], used which may contain error for similar sounding words even af ter review. Portions of this chart may have been copied from previous notes for continuity of care. Disposition: ?home Code Status: Full Code Bhavesh Ramires MD 01/08/2016 Elo , Bhavesh Lopez MD - 01/07/2016 3:17 PM PDTFormatting of this note might be different from t aleksandar original. Progress Notes by Bhavesh Ramires MD at 01/07/161516 Author: Bhavesh Ramires MD Service: Hospitalist Author Type: Physician Filed: 01/07/16 152 Date of Service: 01/07/161516 Status: Signed Issuing Operator: Bhavesh Ramires MD (Physician) [facility] Service: Hospitalist Progress Note Hospital Day: LOS: 3 days Post-Op Day: * No surgery found * SUBJECTIVE Patient Summary: Events Overnight: Patient seen and examined at bedside and follow-up, overnight to nicolasa shannon has been afebrile, her back pain is improved rated 4 -3 on tramadol, otherwise she has no chest pain, no shortness of breath, nausea no vomiting, she been able to move more. Kaylen ent has not had any numbness or weakness in any of her lower extremities. She has had no los s of bowel or urinary function. she has not had any diarrhea, she has not had any crampy abdominal pain with stooling. Scheduled Medications cefTRIAXone 2 g Intravenous Q24H diclofenac 2 g Topical 4x Daily lidocaine 2 patch Transdermal Daily lidocaine buffered 1% 0.5 mL Intradermal Once methocarbamol 500 mg Oral 4x Daily nystatin 5 mL Oral 4x Daily sodium chloride 10 mL Intravenous 2 times per day traMADol 50 mg Oral Q6H Continuous Infusions PRN Medications acetaminophen OR acetaminophen, cyclobenzaprine, HYDROmorphone OR HYDROmorphone, on dansetron OR ondansetron, polyethylene glycol, sodium chloride, zolpidem OBJECTIVE Vital Signs: BP 115/61 mmHg | Pulse 84 | Temp(Src) 97.4 F (36.3 C) (Oral) | Resp 18 | Ht 1.626 m (5' 4") | Wt 77.248 kg (170 lb 4.8 oz) | BMI 29.22 kg/m2 | SpO2 97% | ? No General Appearance: Alert, cooperative, no distress, appears stated age Head: Normocephalic, without obvious abnormality, atraumatic Eyes: PERRL, conjunctiva/corneas clear, EOM's intact, Ears: Normal external ear canals, both ears Nose: Nares normal, septum midline, mucosa normal, no drainage or sinus tenderness Throat: Lips, mucosa, and tongue normal; teeth and gums normal Neck: Supple, symmetrical, trachea midline, no adenopathy; thyroid: no enlargement/tenderness/nodules; no carotid bruit or JVD Back: Symmetric, no curvature, tenderness on palpation back restricted ROM, no CVA tend erness Lungs: Clear to auscultation bilaterally, respirations unlabored Chest Wall: No tenderness or deformity Heart: Regular rate and rhythm, S1 and S2 normal, no murmur, rub or gallop Abdomen: Soft, non-tender, bowel sounds active all four quadrants, no masses, no organomegaly Extremities: Extremities left leg incision site from her total knee repair is scabbed ove r, only slight areas of erythema along with a physician edges, no discharge. It is not warme r than other me. Trace bipedal edema. No numbness. Pulses: 2+ and symmetric all extremities Skin: Skin color, texture, turgor normal, no rashes or lesions Lymph nodes: Cervical, supraclavicular, and axillary nodes normal Neurologic: CNII-XII intact, normal strength, no numbness lower extremities and reflexes throughout DATA CBC: Lab Results Component Value Date WBC 5.04 01/07/2016 RBC 3.51* 01/07/2016 HGB 10.1* 01/07/2016 HCT 30.6* 01/07/2016 MCV 87.2 01/07/2016 MCH 28.7 01/07/2016 MCHC 32.9 01/07/2016 RDW 45.1 01/07/2016 PLT 271 01/07/2016 MPV 7.0 01/07/2016 DIFFTYPE AUTOMATED 01/07/2016 CMP: Lab Results Component Value Date NA 134* 01/05/2016 K 4.0 01/05/2016 CL 98* 01/05/2016 CO2 25 01/05/2016 ANIONGAP 15 01/05/2016 GLUF 83 01/05/2016 BUN 6* 01/05/2016 CREATININE 0.53 01/05/2016 BCR 11 01/05/2016 CA 9.9 01/05/2016 EGFR >60 01/05/2016 Calcium: No results found for: CALCIUM Magnesium: Lab Results Component Value Date MG 1.7 01/05/2016 Phosphorus: Lab Results Component Value Date PHOS 4.3 01/05/2016 PT/INR: Lab Results Component Value Date INR 1.1 01/05/2016 PTT: Lab Results Component Value Date APTT 31 01/05/2016 [APTT} No results found. PROBLEM LIST Principal Problem: Discitis of lumbar region Active Problems: Osteoarthritis H/O total knee replacement Ulcerative colitis (HCC) Moderate protein-calorie malnutrition (HCC) ASSESSMENT & PLAN Patient Active Hospital Problem List: Discitis of lumbar region (01/04/2016) Assessment: According to Dr. Burnett of neurosurgery who has seen patient no drainable flu id collection or surgical indications. Plan: As discussed with infectious diseases, we will continue to monitor blood cultures, patient will continue with IV ceftriaxone, PICC line to day possible dc tomorrow, as recomm ended by neurosurgery, Plan is to treat presumptive early discitis for 6 weeks which will be completed on February 14 . Osteoarthritis (01/04/2016) Assessment: Chronic Plan: Pain medication and voltaren gel as needed patient is allergic and has GI bleed wit h aspirin and ibuprofen. H/O total knee replacement (01/04/2016) Assessment: no signs of infection Plan: Continue to monitor Ulcerative colitis (HCC) (01/04/2016) Assessment: doubt exacerbation given no abdominal symptoms as well stool was solid Plan: Continue to monitor Moderate protein-calorie malnutrition (HCC) (01/05/2016) Assessment: Chronic Plan: Increase food intake I explained radiology and lab findings and plan of care to patient and she verbalized under standing and agreement and had no more questions for me after my interaction with her. More than 25 minutes spent directly face to face with patient and more than 65% spent for physic al examination and talking with patient. Number at bedside, on chart review, coordinating ca re with other providers, formulating a plan of care and management as well as Computerized P hysician Equal Opportunity Assistant. Dictation software, [employer], used which may contain error for similar sounding words even af ter review. Portions of this chart may have been copied from previous notes for continuity of care. Disposition: ?home Code Status: Full Code Bhavesh Ramires MD 01/07/2016 onversion Transaction, Provider Unknown - 01/07/2016 2:53 PM PDTFormatting of this note might be diff erent from the original. Case Management by Catie Babcock RN at 01/07/16 0101 Author: Catie Babcock RN Service: (none) Author Type: Corrosion Engineer Filed: 01/07/16 8006 Date of Service: 01/07/16 722 Status: Signed Issuing Operator: Catie Babcock RN (Corrosion Engineer) Pt would like to receive her out patient antibiotics at [facility] in [place], [place]. CM spoke with Hospital Environmental Scientist Marysol at [facility] and she informed CM that their "[facility]" is closed on the weekends and are unable to start infusion services fo r this patient until Saturday01/09/16. Marco Gregory DO - 01/07/2016 10:14 AM PDTFormatting of this note might be different from the lyndsey monster. Progress Notes by Marco Cuellar DO at 01/07/16 1014 Author: Marco Cuellar DO Service: (none) Author Type: Physician Filed: 01/07/16 1037 Date of Service: 01/07/16 1014 Status: Signed Issuing Operator: Marco Cuellar DO (Physician) [facility] Service: Infectious Disease Progress Note Hospital Day: LOS: 3 days Post-Op Day: * No surgery found * SUBJECTIVE Patient Summary: 65 y.o. female with significant past medical history of ulcerative colitis, currently quiesced and, osteoarthritis, status post right total knee replacement mena rgery on December 26, 2015. Should spinal anesthesia at that time. After surgery, she states hav ing progressive lower back pain, making it difficult for her to walk. MRI of the spine done at [facility] was reported as showing discitis, possible osteomyel itis at her lumbar spine. Dr. Lentz, who was call for neurosurgery on 01/03 had been contact ed. At the time of her transfer to [facility], she was reportedly afebrile, hemodynamically stab le with normal WBC. Inflammatory markers have been requested which are now resulted to be in creased. Blood cultures have been sent on 01/03. MRSA nasal PCR came back negative. The origi nal plan was to hold off on antibiotics while awaiting aspiration from the disc space, but i nterventional radiology was not available to do the procedure in a reasonable period of time . Due to the elevated inflammatory markers, the patient was started on Rocephin on January 04. CC: back pain Chart reviewed: No new events. Subjective The patient reports that her back pain continues to improve. She denies any fevers or chill s. Rocephin has been well tolerated so far. ROS No fever, chills sweats. No nausea, vomiting or diarrhea. No rashes or pruritis. No oral pa in. Scheduled Medications cefTRIAXone 2 g Intravenous Q24H diclofenac 2 g Topical 4x Daily lidocaine 2 patch Transdermal Daily methocarbamol 500 mg Oral 4x Daily nystatin 5 mL Oral 4x Daily traMADol 50 mg Oral Q6H Continuous Infusions PRN Medications acetaminophen OR acetaminophen, cyclobenzaprine, HYDROmorphone OR HYDROmorphone, on dansetron OR ondansetron, polyethylene glycol, zolpidem OBJECTIVE Vital Signs: BP 117/80 mmHg | Pulse 68 | Temp(Src) 97.8 F (36.6 C) (Oral) | Resp 18 | Ht 1.626 m (5' 4") | Wt 77.248 kg (170 lb 4.8 oz) | BMI 29.22 kg/m2 | SpO2 99% | ? No Temp (24hrs), Av.8 F (36.6 C), Min:97.5 F (36.4 C), Max:98.2 F (36.8 C) Exam: Const: Vitals reviewed. No acute distress Skin: No rashes, no edema ENT: No thrush. Lungs: CTAB, no rales or wheezes Heart: RRR, no murmur Abd: soft, NT, + bowel sounds Musculoskeletal: Mild point tenderness in lumbar spine and slightly to the left in the para spinal muscles. DATA CBC: Lab Results Component Value Date WBC 5.04 01/07/2016 RBC 3.51* 01/07/2016 HGB 10.1* 01/07/2016 HCT 30.6* 01/07/2016 MCV 87.2 01/07/2016 MCH 28.7 01/07/2016 MCHC 32.9 01/07/2016 RDW 45.1 01/07/2016 PLT 271 01/07/2016 MPV 7.0 01/07/2016 DIFFTYPE AUTOMATED 01/07/2016 CMP: Lab Results Component Value Date NA 134* 01/05/2016 K 4.0 01/05/2016 CL 98* 01/05/2016 CO2 25 01/05/2016 ANIONGAP 15 01/05/2016 GLUF 83 01/05/2016 BUN 6* 01/05/2016 CREATININE 0.53 01/05/2016 BCR 11 01/05/2016 CA 9.9 01/05/2016 EGFR >60 01/05/2016 Microbiology: Blood cultures negative 2 so far. MRSA screen negative. PROBLEM LIST Principal Problem: Discitis of lumbar region Active Problems: Osteoarthritis H/O total knee replacement Ulcerative colitis (HCC) Moderate protein-calorie malnutrition (HCC) ASSESSMENT & PLAN Lumbar back pain after spinal anesthesia -abnormal MRI findings at L2-3, not clearly discitis. No evidence of spinal abscess. -Patient is afebrile. WBC is normal. ESR and CRP are both markedly elevated. -There was no interventional radiologist project controls specialist when patient was admitted, so no direction . He obtained although the yield would have been low due to absence of fluid collection. Blo od cultures negative so far. Continue ceftriaxone, noting that the patient has had improveme nt in pain, inflammatory markers also showing significant improvement with CRP down to 3.7 a nd sedimentation rate down to 47 (baseline CRP 11.2, sedimentation rate 94). History of allergy to penicillin, sulfas and azithromycin S/p TKR, bilateral; left done in early December -no signs of infection Ulcerative colitis -not on immunosuppressive Rx -reportedly quiescent but patient did report having blood in the stool with in the past wee k, now improving. Disposition: Anticipate discharge tomorrow if she continues to make good progress. I have kylee serna for PICC line placement and intravenous Rocephin for a total of 6 weeks, which will b e completed on February 14. Code Status: Full Code MARCO CUELLAR DO 01/07/2016 [email or web address] DO - 10:48 AM PDT Progress Notes by Marco Cuellar DO at 01/06/16 1044 Author: Marco Cuellar DO Service: (none) Author Type: Physician Filed: 01/06/16 1110 Date of Service: 01/06/16 1048 Status: Signed Issuing Operator: Marco Cuellar DO (Physician) [facility] Service: Infectious Disease Progress Note Hospital Day: LOS: 2 days Post-Op Day: * No surgery found * SUBJECTIVE Patient Summary: 65 y.o. female with significant past medical history of ulcerative colitis, currently quiesced and, osteoarthritis, status post right total knee replacement mena delfina on December 26, 2015. Should spinal anesthesia at that time. After surgery, she states hav ing progressive lower back pain, making it difficult for her to walk. MRI of the spine done at [facility] was reported as showing discitis, possible osteomyel itis at her lumbar spine. Dr. Lentz, who was call for neurosurgery on 01/03 had been contact ed. At the time of her transfer to [facility], she was reportedly afebrile, hemodynamically stab le with normal WBC. Inflammatory markers have been requested which are now resulted to be in creased. Blood cultures have been sent on 01/03. MRSA nasal PCR came back negative. The origi nal plan was to hold off on antibiotics while awaiting aspiration from the disc space, but i nterventional radiology was not available to do the procedure in a reasonable period of time . Due to the elevated inflammatory markers, the patient was started on Rocephin on January 04. CC: back pain Chart reviewed: No new events. Subjective The patient reports that her back pain is slightly better today, and he does not have the b andlike distribution across her low back. She denies any lower extremity weakness or numbnes s. No fevers or chills. ROS No fever, chills sweats. No nausea, vomiting or diarrhea. No rashes or pruritis. No oral pa in. Scheduled Medications cefTRIAXone 2 g Intravenous Q24H diclofenac 2 g Topical 4x Daily methocarbamol 500 mg Oral 4x Daily nystatin 5 mL Oral 4x Daily Continuous Infusions PRN Medications acetaminophen OR acetaminophen, cyclobenzaprine, HYDROmorphone OR HYDROmorphone, on dansetron OR ondansetron, polyethylene glycol, zolpidem OBJECTIVE Vital Signs: BP 118/65 mmHg | Pulse 68 | Temp(Src) 97.6 F (36.4 C) (Temporal) | Resp 18 | Ht 1.626 m (5' 4") | Wt 77.248 kg (170 lb 4.8 oz) | BMI 29.22 kg/m2 | SpO2 97% | ? No Temp (24hrs), Av F (36.7 C), Min:97.6 F (36.4 C), Max:98.4 F (36.9 C) Exam: Const: Vitals reviewed. No acute distress Skin: No rashes, no edema ENT: No thrush. Lungs: CTAB, no rales or wheezes Heart: RRR, no murmur Abd: soft, NT, + bowel sounds DATA CBC: Lab Results Component Value Date WBC 4.73 01/06/2016 RBC 3.41* 01/06/2016 HGB 9.6* 01/06/2016 HCT 29.6* 01/06/2016 MCV 86.8 01/06/2016 MCH 28.2 01/06/2016 MCHC 32.5 01/06/2016 RDW 42.9 01/06/2016 PLT 271 01/06/2016 MPV 7.2 01/06/2016 DIFFTYPE AUTOMATED 01/06/2016 CMP: Lab Results Component Value Date NA 134* 01/05/2016 K 4.0 01/05/2016 CL 98* 01/05/2016 CO2 25 01/05/2016 ANIONGAP 15 01/05/2016 GLUF 83 01/05/2016 BUN 6* 01/05/2016 CREATININE 0.53 01/05/2016 BCR 11 01/05/2016 CA 9.9 01/05/2016 EGFR >60 01/05/2016 Microbiology: Blood cultures negative 2 so far. MRSA screen negative. PROBLEM LIST Principal Problem: Discitis of lumbar region Active Problems: Osteoarthritis H/O total knee replacement Ulcerative colitis (HCC) Moderate protein-calorie malnutrition (HCC) ASSESSMENT & PLAN Lumbar back pain after spinal anesthesia -abnormal MRI findings at L2-3, not clearly discitis. No evidence of spinal abscess. -Patient is afebrile. WBC is normal. ESR and CRP are both markedly elevated. -There was no interventional radiologist project controls specialist when patient was admitted, so no direction . He obtained although the yield would have been low due to absence of fluid collection. Blo od cultures negative so far. Continue ceftriaxone, noting that the patient has had improveme nt in pain. We will repeat inflammatory markers tomorrow. History of allergy to penicillin, sulfas and azithromycin S/p TKR, bilateral; left done in early December -no signs of infection Ulcerative colitis -not on immunosuppressive Rx -reportedly quiescent but patient did report having blood in the stool with in the past wee k; monitor Code Status: Full Code MARCO CUELLAR DO 01/06/2016 Elo, Bhavesh Lopez MD - 01/06/2016 8:30 AM PDT . Progress Notes by Bhavesh Ramires MD at 01/06/16829 Author: Bhavesh Ramires MD Service: Hospitalist Author Type: Physician Filed: 01/06/16 1552 Date of Service: 01/06/16829 Status: Signed Issuing Operator: Bhavesh Ramires MD (Physician) [facility] Service: Hospitalist Progress Note Hospital Day: LOS: 2 days Post-Op Day: * No surgery found * SUBJECTIVE Patient Summary: Events Overnight: Patient seen and examined at bedside and follow-up, overnight to [facility]olasa lynn[facility]won has been afebrile, her back pain is improved rated 6 to 4, otherwise she has no chest pain, no shortness of breath, nausea no vomiting, she been able to move from her bed to bath room but it hurts a lot so she has to have a commode placed. Patient has not had any numbnes s or weakness in any of her lower extremities. She has had no loss of bowel or urinary funct ion. she has not had any diarrhea, she has not had any crampy abdominal pain with stooling. Scheduled Medications cefTRIAXone 2 g Intravenous Q24H diclofenac 2 g Topical 4x Daily methocarbamol 500 mg Oral 4x Daily nystatin 5 mL Oral 4x Daily Continuous Infusions PRN Medications acetaminophen OR acetaminophen, cyclobenzaprine, HYDROmorphone OR HYDROmorphone, on dansetron OR ondansetron, polyethylene glycol, zolpidem OBJECTIVE Vital Signs: BP 118/65 mmHg | Pulse 68 | Temp(Src) 97.6 F (36.4 C) (Temporal) | Resp 18 | Ht 1.626 m (5' 4") | Wt 77.248 kg (170 lb 4.8 oz) | BMI 29.22 kg/m2 | SpO2 97% | ? No General Appearance: Alert, cooperative, no distress, appears stated age Head: Normocephalic, without obvious abnormality, atraumatic Eyes: PERRL, conjunctiva/corneas clear, EOM's intact, Ears: Normal external ear canals, both ears Nose: Nares normal, septum midline, mucosa normal, no drainage or sinus tenderness Throat: Lips, mucosa, and tongue normal; teeth and gums normal Neck: Supple, symmetrical, trachea midline, no adenopathy; thyroid: no enlargement/tenderness/nodules; no carotid bruit or JVD Back: Symmetric, no curvature, tenderness on palpation back restricted ROM, no CVA tend erness Lungs: Clear to auscultation bilaterally, respirations unlabored Chest Wall: No tenderness or deformity Heart: Regular rate and rhythm, S1 and S2 normal, no murmur, rub or gallop Abdomen: Soft, non-tender, bowel sounds active all four quadrants, no masses, no organomegaly Extremities: Extremities left leg incision site from her total knee repair is scabbed ove r, only slight areas of erythema along with a physician edges, no discharge. It is not warme r than other me. Trace bipedal edema. No numbness. Pulses: 2+ and symmetric all extremities Skin: Skin color, texture, turgor normal, no rashes or lesions Lymph nodes: Cervical, supraclavicular, and axillary nodes normal Neurologic: CNII-XII intact, normal strength, no numbness lower extremities and reflexes throughout DATA CBC: Lab Results Component Value Date WBC 4.73 01/06/2016 RBC 3.41* 01/06/2016 HGB 9.6* 01/06/2016 HCT 29.6* 01/06/2016 MCV 86.8 01/06/2016 MCH 28.2 01/06/2016 MCHC 32.5 01/06/2016 RDW 42.9 01/06/2016 PLT 271 01/06/2016 MPV 7.2 01/06/2016 DIFFTYPE AUTOMATED 01/06/2016 CMP: Lab Results Component Value Date NA 134* 01/05/2016 K 4.0 01/05/2016 CL 98* 01/05/2016 CO2 25 01/05/2016 ANIONGAP 15 01/05/2016 GLUF 83 01/05/2016 BUN 6* 01/05/2016 CREATININE 0.53 01/05/2016 BCR 11 01/05/2016 CA 9.9 01/05/2016 EGFR >60 01/05/2016 Calcium: No results found for: CALCIUM Magnesium: Lab Results Component Value Date MG 1.7 01/05/2016 Phosphorus: Lab Results Component Value Date PHOS 4.3 01/05/2016 PT/INR: Lab Results Component Value Date INR 1.1 01/05/2016 PTT: Lab Results Component Value Date APTT 31 01/05/2016 [APTT} No results found. PROBLEM LIST Principal Problem: Discitis of lumbar region Active Problems: Osteoarthritis H/O total knee replacement Ulcerative colitis (HCC) Moderate protein-calorie malnutrition (HCC) ASSESSMENT & PLAN Patient Active Hospital Problem List: Discitis of lumbar region (01/04/2016) Assessment: According to Dr. Burnett of neurosurgery who has seen patient no drainable flu id collection or surgical indications. Plan: As discussed with infectious diseases, we will continue to monitor blood cultures, patient will continue with IV ceftriaxone, will monitor for clinical response, as well as re peat inflammatory markers tomorrow . as recommended by neurosurgery, Plan is to treat presum ptive early discitis for 6 weeks. Osteoarthritis (01/04/2016) Assessment: Chronic Plan: Pain medication as needed patient is allergic and has GI bleed with aspirin and ibu profen. H/O total knee replacement (01/04/2016) Assessment: o signs of infection Plan: Continue to monitor Ulcerative colitis (HCC) (01/04/2016) Assessment: doubt exacerbation given no abdominal symptoms as well stool was solid Plan: Continue to monitor Moderate protein-calorie malnutrition (HCC) (01/05/2016) Assessment: Chronic Plan: Increase food intake I explained radiology and lab findings and plan of care to patient and she verbalized under standing and agreement and had no more questions for me after my interaction with her. More than 35 minutes spent directly face to face with patient and more than 65% spent for physic al examination and talking with patient. Number at bedside, on chart review, coordinating ca re with other providers, formulating a plan of care and management as well as Computerized P hysician Equal Opportunity Assistant. Dictation software, [employer], used which may contain error for similar sounding words even af ter review. Portions of this chart may have been copied from previous notes for continuity of care. Disposition: ?home Code Status: Full Code Bhavesh Ramires MD 01/06/2016 onversion Transaction, Provider Unknown - 01/05/2016 4:06 PM PDTFormatting of this note might be diff erent from the original. Progress Notes by Roberta Davis RD at 01/05/16 1606 Author: Roberta Davis RD Service: (none) Author Type: Registered Dietitian Filed: 01/05/16 7971 Date of Service: 01/05/161605 Status: Signed Issuing Operator: Roberta Davis RD (Registered Dietitian) 01/05/16 7956 Subjective Timepoint Admit (wt loss. ) Pt c/o In to see pt admitted for discitis of lumbar region. Reported by Patient Diet Experience Self-selected diet(s) followed No specific diets followed although attempts to eat healthy foods such as whole grains, fruits, vegetables and legumes, thinks it may also have affected wt loss. Typically eats 2-3 meals daily although appetite has not been the same since knee surgeries. Fluid / Beverage Intake Oral Fluids Amount Ad bethany Liquid Meal Replacement or Supplement Offered boost supplements, pt declined at this time. May readdress if po is poor and inadequate. Food Intake Amount of Food Breakfast: 40% of yogurt bagel and Lunch: mac and cheese Type of Food / Meals General diet Meal / Snack Pattern Pt would like to order own meals Food and Nutrition Knowledge Area(s) and Level of Knowledge Encouraged well balanced meals daily and maintaning good po intake. Pt expressed understading. Social Network Social Support Family at bedside Nutrition-Focused Physical Findings Extremities, Muscles and Bones Noted to have leg swelling, +1 on LLE. Noticable muscle loss of the clavicles. Anthropometrics Weight change Pt reports wt loss r/t R total knee replacement on June 2015. Had L tota l knee replacement on December 26, 2015. UBW of 226# on April last year. Pt adamant about current wt being an error, states her full wt was not placed on scale when recorded. Recommend new wt to reassess true wt loss. Biochemical data, medical tests, and procedures reviewed Biochemical data, medical tests, and procedures reviewed Na (L) 134, BUN (L) 6, Cr (L) 0.53 - indicating muscle wasting. Estimated Energy Needs Total Energy Estimated Needs Will reassess once new wt is available Estimated Protein Needs Total Protein Estimated Needs Will reassess once new wt is available Recommendations Recommended energy needs Continue general diet as ordered, 3 meals daily with at least 75% of meals. Ok to readdress Boost supplements if po intake declines or inadequate. Recommedn t o re-weigh pt to determine true wt loss. Will continue to follow. Nutritional Risk Nutritional risk Moderate Follow up date 01/10/16 Malnutrition Evaluation Malnutrition in the Context Of Acute Illness Clinical Characteristics indicative of moderate malnutrition Mild muscle mass depletion;Mil d fluid accumulation Protein-Calorie Malnutrition Type (!) Moderate Roberta Davis RD onver ailyn Transaction, Provider Unknown - 01/05/2016 3:24 PM PDT Case Management by Toney Samuel RN at 01/05/163 Author: Toney Samuel RN Service: (none) Author Type: Corrosion Engineer Filed: 01/05/164 Date of Service: 01/05/161523 Status: Addendum Issuing Operator: Toney Samuel RN (Corrosion Engineer) Related Notes: Original Note by Toney Samuel RN (Corrosion Engineer) filed at 01/05/16 2927 Met with patient, explained CM role and discussed discharge planning, Pt is a 65 y.o., fema le admitted with back pain. Patient states she is independent with all ADL's, uses walker fo r DME following knee surgery. She denies outpatient medical services such as dialysis, [facility], coumadin clinic, or home oxygen.She was having [facility] at home. Pt sees PCP on regular basis. Patient is aware CM will follow for discharge needs as they arise during hospitalization. 01/05/16 1522 Discharge Planning Evaluation Admitting Diagnosis Back Pain Readmission Yes-within 14 days Reason for readmission Back pain had Knee surgery 12/26/[address] [facility] Last discharge disposition Home Needs met at last discharge Yes Picked up discharge Rx medications Yes Started prescribed DC meds Yes Followed up with primary or specialty provider No (Appt made) Understood discharge instructions Yes Assistance available Yes Concerns for meeting needs No Living Arrangements Spouse/significant other Support Systems Spouse/significant other Type of Residence Private residence House type House-Split level Steps to enter (Has ramp) Bathrooms on 1st Floor 1-Full Independent with ADL's Yes Independent with Mobility Yes (Has Fww, and 4WW at home ) Home Care Services No ([facility] just started to visit for RN and PT) Caregiver after Discharge No Mental Status Oriented Power of Auditor Medical Claims No Anticipated Discharge Plan Post Acute Care Needs None at this time Plan communicated to patient/family Yes Resources Financial concerns No Transportation issues No Patient/Family concerns No Prescription Plan Yes Name of Pharmacy [facility] [place] Previous home health equipment No Vascular access device No Ostomy/Drains/Appliances No Anticipated Disposition Facility Type Home Medicare Important Message (KRISTOPHER) Not applicable Met with: Yamilet and discussed discharge planning, Pt is a 65 y.o., female Patient's PCP is: Puneet Donovan Patient's insurance:Medicaid Coverage concerns: None Medication coverage/concerns: None [facility] [address] [facility] Bed[facility] Delivery: [facility] resources utilized / needed: None Assistance in transportation: to provide Identification of any specific education / training: None Barriers to Discharge / Alternative housing needed: None Anticipated DCP: Home with spouse Toney Samuel onver a[place]n [place], Provider Unknown - 01/05/2016 8:39 AM PDT Progress Notes by Tracee Patel RPH at 01/05/16838 Author: Tracee Patel RPH Service: (none) Author Type: Pharmacist Filed: 01/05/16838 Date of Service: 01/05/16838 Status: Signed Issuing Operator: Tracee Patel RPH (Pharmacist) Patient lists "Rash" with several oral NSAIDS. Voltaren gel not on Med Rec-need to clarify if patient Can use. Pharmacist; TRACEE PATEL 01/05/2016 8:39 AM Bhavesh Sawyer MD - 01/05/2016 7:59 AM PDTFormatting of this note might be different f rom the original. Progress Notes by Bhavesh Ramires MD at 01/05/16758 Author: Bhavesh Ramires MD Service: Hospitalist Author Type: Physician Filed: 01/05/16 184 Date of Service: 01/05/16758 Status: Signed Issuing Operator: Bhavesh Ramires MD (Physician) [facility] Service: Hospitalist Progress Note Hospital Day: LOS: 1 day Post-Op Day: * No surgery found * SUBJECTIVE Patient Summary: Events Overnight: Patient's and examined at bedside and follow-up, overnight to patie nt has been afebrile, her back pain is minimally improved, otherwise she has no chest pain, no shortness of breath, nausea no vomiting, she been able to move from her bed to bathroom b ut it hurts a lot so she has to have a commode placed. Patient has not had any numbness or w eakness in any of her lower extremities. She has had no loss of bowel or urinary function. Patient states she has ulcerative colitis and noticed that her stool may have been a little bit bloody earlier however do stool was formed, she has not had any diarrhea, she has not h ad any crampy abdominal pain with stooling. Scheduled Medications Continuous Infusions PRN Medications acetaminophen OR acetaminophen, cyclobenzaprine, HYDROmorphone OR HYDROmorphone, on dansetron OR ondansetron, polyethylene glycol, zolpidem OBJECTIVE Vital Signs: BP 129/72 mmHg | Pulse 94 | Temp(Src) 98.1 F (36.7 C) (Oral) | Resp 16 | Ht 1.626 m (5' 4") | Wt 77.248 kg (170 lb 4.8 oz) | BMI 29.22 kg/m2 | SpO2 98% | ? No General Appearance: Alert, cooperative, no distress, appears stated age Head: Normocephalic, without obvious abnormality, atraumatic Eyes: PERRL, conjunctiva/corneas clear, EOM's intact, Ears: Normal external ear canals, both ears Nose: Nares normal, septum midline, mucosa normal, no drainage or sinus tenderness Throat: Lips, mucosa, and tongue normal; teeth and gums normal Neck: Supple, symmetrical, trachea midline, no adenopathy; thyroid: no enlargement/tenderness/nodules; no carotid bruit or JVD Back: Symmetric, no curvature, tenderness on palpation back restricted ROM, no CVA tend erness Lungs: Clear to auscultation bilaterally, respirations unlabored Chest Wall: No tenderness or deformity Heart: Regular rate and rhythm, S1 and S2 normal, no murmur, rub or gallop Abdomen: Soft, non-tender, bowel sounds active all four quadrants, no masses, no organomegaly Extremities: Extremities left leg incision site from her total knee repair is scabbed ove r, only slight areas of erythema along with a physician edges, no discharge. It is not warme r than other me. Trace bipedal edema. No numbness. Pulses: 2+ and symmetric all extremities Skin: Skin color, texture, turgor normal, no rashes or lesions Lymph nodes: Cervical, supraclavicular, and axillary nodes normal Neurologic: CNII-XII intact, normal strength, no numbness lower extremities and reflexes throughout DATA CBC: Lab Results Component Value Date WBC 5.27 01/05/2016 RBC 3.35* 01/05/2016 HGB 9.6* 01/05/2016 HCT 29.2* 01/05/2016 MCV 87.0 01/05/2016 MCH 28.6 01/05/2016 MCHC 32.9 01/05/2016 RDW 44.2 01/05/2016 PLT 238 01/05/2016 MPV 6.8 01/05/2016 DIFFTYPE AUTOMATED 01/05/2016 CMP: Lab Results Component Value Date NA 134* 01/05/2016 K 4.0 01/05/2016 CL 98* 01/05/2016 CO2 25 01/05/2016 ANIONGAP 15 01/05/2016 GLUF 83 01/05/2016 BUN 6* 01/05/2016 CREATININE 0.53 01/05/2016 BCR 11 01/05/2016 CA 9.9 01/05/2016 EGFR >60 01/05/2016 Calcium: No results found for: CALCIUM Magnesium: Lab Results Component Value Date MG 1.7 01/05/2016 Phosphorus: Lab Results Component Value Date PHOS 4.3 01/05/2016 PT/INR: Lab Results Component Value Date INR 1.1 01/05/2016 PTT: Lab Results Component Value Date APTT 31 01/05/2016 [APTT} No results found. PROBLEM LIST Principal Problem: Discitis of lumbar region Active Problems: Osteoarthritis H/O total knee replacement Ulcerative colitis (HCC) ASSESSMENT & PLAN Patient Active Hospital Problem List: Discitis of lumbar region (01/04/2016) Assessment: According to Dr. Burnett of neurosurgery who has seen patient no drainable flu id collection or surgical indications. Plan: As discussed with infectious diseases, we will continue to monitor blood cultures, patient will continue with IV ceftriaxone, will monitor for clinical response, may have imag ing. as recommended by neurosurgery, if blood culture shows no growth replacement in 48 hour s. Plan is to treat presumptive early discitis for 6 weeks. Osteoarthritis (01/04/2016) Assessment: Chronic Plan: Pain medication as needed patient is allergic and has GI bleed with aspirin and ibu profen. H/O total knee replacement (01/04/2016) Assessment: o signs of infection Plan: Continue to monitor Ulcerative colitis (HCC) (01/04/2016) Assessment: oubt exacerbation given no abdominal symptoms as well stool was solid Plan: Continue to monitor Moderate protein-calorie malnutrition (HCC) (01/05/2016) Assessment: Chronic Plan: Increase food intake I explained radiology and lab findings and plan of care to patient and she verbalized under standing and agreement and had no more questions for me after my interaction with her. More than 35 minutes spent directly face to face with patient and more than 65% spent for physic al examination and talking with patient. Number at bedside, on chart review, coordinating ca re with other providers, formulating a plan of care and management as well as Computerized P hysician Equal Opportunity Assistant. Dictation software, [employer], used which may contain error for similar sounding words even af ter review. Portions of this chart may have been copied from previous notes for continuity of care. Disposition: ?home Code Status: Full Code Bhavesh Ramires MD 01/05/2016 onversion Transaction, Provider Unknown - 01/04/2016 8:17 PM PDTFormatting of this note might be diff erent from the original. Progress Notes by Catie Harrell [facility] at 01/04/16 2017 Author: Catie Harrell RPH Service: (none) Author Type: Pharmacist Filed: 01/04/162016 Date of Service: 01/04/162016 Status: Signed Issuing Operator: Catie Harrell RPH (Pharmacist) Clinical Pharmacy Note: Renal Monitoring Yamilet Hernandes 65 y.o. female Currently there is no serum creatinine. Pharmacy will adjust medications, if necessary, in AM when labs are reported. Catie Harrell PharmJames 01/04/2016 8:17 PM docume nted in this encounter Plan of Treatment +--------+ + + + + | Date | Type | Specialty | Care Team | Description | +--------+ + + + + | 06/24/ | Appointment | Radiation Oncology | Jojo Henry | | | 2019 | | | MD [address] | | | | | | [place], [place] | | | | | | [id number] | | | | | | | | +--------+ + + + + documented as of this encounter Procedures + +--------+ + + + | Procedure Name | Priori | Date/Time | Associated Diagnosis | Comments | | | ty | | | | + +--------+ + + + | EXTERNAL LAB: OCCULT | Routin | 01/07/2016 | | Results for this | | BLOOD, SCREENING | e | 5:50 AM | | procedure are in the | | | | PDT | | results section. | + +--------+ + + + | EXTERNAL LAB: CBC | Routin | 01/07/2016 | | Results for this | | | e | 3:31 AM | | procedure are in the | | | | PDT | | results section. | + +--------+ + + + | SEDIMENTATION RATE, | Routin | 01/07/2016 | | Results for this | | AUTOMATED | e | 3:31 AM | | procedure are in the | | | | PDT | | results section. | + +--------+ + + + | C-REACTIVE PROTEIN | Routin | 01/07/2016 | | Results for this | | | e | 3:31 AM | | procedure are in the | | | | PDT | | results section. | + +--------+ + + + | EXTERNAL LAB: OCCULT | Routin | 01/06/2016 | | Results for this | | BLOOD, SCREENING | e | 6:14 AM | | procedure are in the | | | | PDT | | results section. | + +--------+ + + + | EXTERNAL LAB: CBC | Routin | 01/06/2016 | | Results for this | | | e | 3:27 AM | | procedure are in the | | | | PDT | | results section. | + +--------+ + + + | EXTERNAL LAB: OCCULT | Routin | 01/05/2016 | | Results for this | | BLOOD, SCREENING | e | 11:17 AM | | procedure are in the | | | | PDT | | results section. | + +--------+ + + + | URINALYSIS, REFLEX | Routin | 01/05/2016 | | Results for this | | MICROSCOPIC AND/OR | e | 10:17 AM | | procedure are in the | | CULTURE | | PDT | | results section. | + +--------+ + + + | URINALYSIS, | Routin | 01/05/2016 | | Results for this | | MICROSCOPIC ONLY | e | 10:17 AM | | procedure are in the | | | | PDT | | results section. | + +--------+ + + + | EXTERNAL LAB: CBC | Routin | 01/05/2016 | | Results for this | | | e | 5:29 AM | | procedure are in the | | | | PDT | | results section. | + +--------+ + + + | IRON AND IRON | Routin | 01/05/2016 | | Results for this | | BINDING CAPACITY | e | 5:29 AM | | procedure are in the | | | | PDT | | results section. | + +--------+ + + + | PTT | Routin | 01/05/2016 | | Results for this | | | e | 5:29 AM | | procedure are in the | | | | PDT | | results section. | + +--------+ + + + | PROTIME INR | Routin | 01/05/2016 | | Results for this | | | e | 5:29 AM | | procedure are in the | | | | PDT | | results section. | + +--------+ + + + | RETIC COUNT | Routin | 01/05/2016 | | Results for this | | | e | 5:29 AM | | procedure are in the | | | | PDT | | results section. | + +--------+ + + + | PHOSPHORUS | Routin | 01/05/2016 | | Results for this | | | e | 5:29 AM | | procedure are in the | | | | PDT | | results section. | + +--------+ + + + | MAGNESIUM | Routin | 01/05/2016 | | Results for this | | | e | 5:29 AM | | procedure are in the | | | | PDT | | results section. | + +--------+ + + + | BASIC METABOLIC | Routin | 01/05/2016 | | Results for this | | PANEL | e | 5:29 AM | | procedure are in the | | | | PDT | | results section. | + +--------+ + + + | MRSA NAAT | Timed | 01/04/2016 | | Results for this | | | | 10:00 PM | | procedure are in the | | | | PDT | | results section. | + +--------+ + + + | CULTURE, BLOOD, 2ND | Timed | 01/04/2016 | | Results for this | | SPECIMEN (NON-ORD) | | 8:42 PM | | procedure are in the | | | | PDT | | results section. | + +--------+ + + + | CULTURE, BLOOD | Timed | 01/04/2016 | | Results for this | | | | 8:35 PM | | procedure are in the | | | | PDT | | results section. | + +--------+ + + + | SEDIMENTATION RATE, | Routin | 01/04/2016 | | Results for this | | AUTOMATED | e | 8:35 PM | | procedure are in the | | | | PDT | | results section. | + +--------+ + + + | C-REACTIVE PROTEIN | Routin | 01/04/2016 | | Results for this | | | e | 8:35 PM | | procedure are in the | | | | PDT | | results section. | + +--------+ + + + documented in this encounter Results External Lab: Occult Blood, Screening (01/07/2016 5:50 AM PDT) + + | Specimen | + + | Stool specimen | | (specimen) | + + + + + | Narrative | Performed At | + + + | Fecal Occult Blood POSITIVE Abnormal | EXTERNAL LAB | | Testing performed at [facility];[address];[place] [address] | | + + + + +---------+ + + | Performing | Address | City/State/Zipcode | Phone Number | | Organization | | | | + +---------+ + + | EXTERNAL LAB | | | | + +---------+ + + Sedimentation rate, automated (01/07/2016 3:31 AM PDT) + + + + + + | Component | Value | Ref Range | Performed | Pathologist | | | | | At | Signature | + + + + + + | Sed Rate | 47 (H)Comment: Testing | 0 - 30 mm/Hr | EXTERNAL | | | | performed at [facility], [address] | | LAB | | | | [address], | | | | | | [place] [address] | | | | + + + [...] + +---------+ + + External Lab: CBC (01/07/2016 3:31 AM PDT) + + + + + + | Component | Value | Ref Range | Performed | Pathologist | | | | | At | Signature | + + + + + + | WBC | 5.04Comment: Testing | 3.80 - 11.00 | EXTERNAL | | | | performed at [facility], [address] | K/uL | LAB | | | | [address], | | | | | | [place] [address] | | | | + + + + + + | RED CELL | 3.51 (L)Comment: Testing | 3.70 - 5.10 | EXTERNAL | | | COUNT | performed at [facility], [address] | M/uL | LAB | | | | [address], | | | | | | [place] [address] | | | | + + + + + + | Hgb | 10.1 (L)Comment: Testing | 11.3 - 15.5 | EXTERNAL | | | | performed at [facility], [address] | g/dL | LAB | | | | [address], | | | | | | [place] [address] | | | | + + + + + + | Hematocrit, | 30.6 (L)Comment: Testing | 34.0 - 46.0 % | EXTERNAL | | | POC | performed at [facility], [address] | | LAB | | | | [address], | | | | | | [place] [address] | | | | + + + + + + | MCV | 87.2Comment: Testing | 80.0 - 100.0 fl | EXTERNAL | | | | performed at [facility], [address] | | LAB | | | | [address], | | | | | | [place] [address] | | | | + + + + + + | MCH | 28.7Comment: Testing | 27.0 - 34.0 pg | EXTERNAL | | | | performed at [facility], [address] | | LAB | | | | [address], | | | | | | [place] [address] | | | | + + + + + + | MCHC | 32.9Comment: Testing | 32.0 - 35.5 | EXTERNAL | | | | performed at [facility], [address] | g/dL | LAB | | | | [address], | | | | | | [place] [address] | | | | + + + + + + | RDW-CV | 45.1Comment: Testing | 37 - 53 fl | EXTERNAL | | | | performed at [facility], [address] | | LAB | | | | [address], | | | | | | [place] [address] | | | | + + + + + + | Platelet | 271Comment: Testing | 150 - 400 K/uL | EXTERNAL | | | Count | performed at [facility], [address] | | LAB | | | Plasma | [address], | | | | | | [place] [address] | | | | + + + + + + | MPV | 7.0Comment: Testing | fl | EXTERNAL | | | | performed at [facility], [address] | | LAB | | | | [address], | | | | | | [place] [address] | | | | + + + + + + | Differentia | AUTOMATEDComment: | | EXTERNAL | | | l Type | Testing performed at | | LAB | | | | [facility], [address] | | | | | | [place] | | | | | | [address] | | | | + + + + + + | % Segmented | 67.40Comment: Testing | % | EXTERNAL | | | | performed at [facility], [address] | | LAB | | | Neutrophils | [address], | | | | | | [place] [address] | | | | + + + + + + | % | 16.91Comment: Testing | % | EXTERNAL | | | Lymphocytes | performed at [facility], [address] | | LAB | | | | [address], | | | | | | [place] [address] | | | | + + + + + + | % Monocytes | 10.12Comment: Testing | % | EXTERNAL | | | | performed at [facility], [address] | | LAB | | | | [address], | | | | | | [place] [address] | | | | + + + + + + | % | 4.39Comment: Testing | % | EXTERNAL | | | Eosinophils | performed at [facility], [address] | | LAB | | | | [address], | | | | | | [place] [address] | | | | + + + + + + | % Basophils | 1.18Comment: Testing | % | EXTERNAL | | | | performed at [facility], [address] | | LAB | | | | [address], | | | | | | [place] [address] | | | | + + + + + + | Absolute | 3.40Comment: Testing | 1.90 - 7.40 | EXTERNAL | | | Segmented | performed at [facility], [address] | K/uL | LAB | | | Neutrophils | [address], | | | | | | [place] [address] | | | | + + + + + + | Absolute | 0.85 (L)Comment: Testing | 1.00 - 3.90 | EXTERNAL | | | Lymphocytes | performed at [facility], [address] | K/uL | LAB | | | | [address], | | | | | | [place] [address] | | | | + + + + + + | Absolute | 0.51Comment: Testing | 0.00 - 0.80 | EXTERNAL | | | Monocytes | performed at [facility], [address] | K/uL | LAB | | | | [address], | | | | | | [place] [address] | | | | + + + + + + | Absolute | 0.22Comment: Testing | 0.00 - 0.50 | EXTERNAL | | | Eosinophils | performed at [facility], [address] | K/uL | LAB | | | | [address], | | | | | | [place] [address] | | | | + + + + + + | Absolute | 0.06Comment: Testing | 0.00 - 0.10 | EXTERNAL | | | Basophils | performed at [facility], [address] | K/uL | LAB | | | | [address], | | | | | | [place] [address] | | | | + + + + + + + + | Specimen | + + | Blood specimen | | (specimen) | + + + +---------+ + + | Performing | Address | City/State/Zipcode | Phone Number | | Organization | | | | + +---------+ + + | EXTERNAL LAB | | | | + +---------+ + + C-Reactive Protein (01/07/2016 3:31 AM PDT) + + + + + + | Component | Value | Ref Range | Performed | Pathologist | | | | | At | Signature | + + + + + + | CRP | 3.7 (H)Comment: Testing | mg/dL | EXTERNAL | | | | performed at [facility], [address] | | LAB | | | | [address], | | | | | | [place] [address] | | | | + + + + + + + + | Specimen | + + | Blood specimen | | (specimen) | + + + +---------+ + + | Performing | Address | City/State/Zipcode | Phone Number | | Organization | | | | + +---------+ + + | EXTERNAL LAB | | | | + +---------+ + + External Lab: Occult Blood, Screening (01/06/2016 6:14 AM PDT) + + | Specimen | + + | Stool specimen | | (specimen) | + + + + + | Narrative | Performed At | + + + | Fecal Occult Blood POSITIVE Abnormal | EXTERNAL LAB | | Testing performed at [facility];[address];[place] [address] | | + + + + +---------+ + + | Performing | Address | City/State/Zipcode | Phone Number | | Organization | | | | + +---------+ + + | EXTERNAL LAB | | | | + +---------+ + + External Lab: CBC (01/06/2016 3:27 AM PDT) + + + + + + | Component | Value | Ref Range | Performed | Pathologist | | | | | At | Signature | + + + + + + | WBC | 4.73Comment: Testing | 3.80 - 11.00 | EXTERNAL | | | | performed at [facility], [address] | K/uL | LAB | | | | [address], | | | | | | [place] [address] | | | | + + + + + + | RED CELL | 3.41 (L)Comment: Testing | 3.70 - 5.10 | EXTERNAL | | | COUNT | performed at [facility], [address] | [address] | LAB | | | | [address], | | | | | | [place] [address] | | | | + + + + + + | Hgb | 9.6 (L)Comment: Testing | 11.3 - 15.5 | EXTERNAL | | | | performed at [facility], [address] | g/dL | LAB | | | | [address], | | | | | | [place] [address] | | | | + + + + + + | Hematocrit, | 29.6 (L)Comment: Testing | 34.0 - 46.0 % | EXTERNAL | | | POC | performed at [facility], [address] | | LAB | | | | [address], | | | | | | [place] [address] | | | | + + + + + + | MCV | 86.8Comment: Testing | 80.0 - 100.0 fl | EXTERNAL | | | | performed at [facility], [address] | | LAB | | | | [address], | | | | | | [place] [address] | | | | + + + + + + | MCH | 28.2Comment: Testing | 27.0 - 34.0 pg | EXTERNAL | | | | performed at [facility], [address] | | LAB | | | | [address], | | | | | | [place] [address] | | | | + + + + + + | MCHC | 32.5Comment: Testing | 32.0 - 35.5 | EXTERNAL | | | | performed at [facility], [address] | g/dL | LAB | | | | [address], | | | | | | [place] [address] | | | | + + + + + + | RDW-CV | 42.9Comment: Testing | 37 - 53 fl | EXTERNAL | | | | performed at [facility], [address] | | LAB | | | | [address], | | | | | | [place] [address] | | | | + + + + + + | Platelet | 271Comment: Testing | 150 - 400 K/uL | EXTERNAL | | | Count | performed at [facility], [address] | | LAB | | | Plasma | [address], | | | | | | [place] [address] | | | | + + + + + + | MPV | 7.2Comment: Testing | fl | EXTERNAL | | | | performed at [facility], [address] | | LAB | | | | [address], | | | | | | [place] [address] | | | | + + + + + + | Differentia | AUTOMATEDComment: | | EXTERNAL | | | l Type | Testing performed at | | LAB | | | | [facility], [address] | | | | | | [place] | | | | | | [address] | | | | + + + + + + | % Segmented | 64.22Comment: Testing | % | EXTERNAL | | | | performed at [facility], [address] | | LAB | | | Neutrophils | [address], | | | | | | [place] [address] | | | | + + + + + + | % | 19.35Comment: Testing | % | EXTERNAL | | | Lymphocytes | performed at [facility], [address] | | LAB | | | | [address], | | | | | | [place] [address] | | | | + + + + + + | % Monocytes | 11.00Comment: Testing | % | EXTERNAL | | | | performed at [facility], [address] | | LAB | | | | [address], | | | | | | [place] [address] | | | | + + + + + + | % | 4.25Comment: Testing | % | EXTERNAL | | | Eosinophils | performed at [facility], [address] | | LAB | | | | [address], | | | | | | [place] [address] | | | | + + + + + + | % Basophils | 1.18Comment: Testing | % | EXTERNAL | | | | performed at [facility], [address] | | LAB | | | | [address], | | | | | | [place] [address] | | | | + + + + + + | Absolute | 3.04Comment: Testing | 1.90 - 7.40 | EXTERNAL | | | Segmented | performed at [facility], [address] | K/uL | LAB | | | Neutrophils | [address], | | | | | | [place] [address] | | | | + + + + + + | Absolute | 0.92 (L)Comment: Testing | 1.00 - 3.90 | EXTERNAL | | | Lymphocytes | performed at [facility], [address] | K/uL | LAB | | | | [address], | | | | | | [place] [address] | | | | + + + + + + | Absolute | 0.52Comment: Testing | 0.00 - 0.80 | EXTERNAL | | | Monocytes | performed at [facility], [address] | K/uL | LAB | | | | [address], | | | | | | [place] [address] | | | | + + + + + + | Absolute | 0.20Comment: Testing | 0.00 - 0.50 | EXTERNAL | | | Eosinophils | performed at [facility], [address] | K/uL | LAB | | | | [address], | | | | | | [place] [address] | | | | + + + + + + | Absolute | 0.06Comment: Testing | 0.00 - 0.10 | EXTERNAL | | | Basophils | performed at [facility], [address] | K/uL | LAB | | | | [address], | | | | | | [place] [address] | | | | + + + + + + + + | Specimen | + + | Blood specimen | | (specimen) | + + + +---------+ + + | Performing | Address | City/State/Zipcode | Phone Number | | Organization | | | | + +---------+ + + | EXTERNAL LAB | | | | + +---------+ + + External Lab: Occult Blood, Screening (01/05/2016 11:17 AM PDT) + + | Specimen | + + | Stool specimen | | (specimen) | + + + + + | Narrative | Performed At | + + + | Fecal Occult Blood NEGATIVE Testing | EXTERNAL LAB | | performed at [facility];[address] [place] [address];[place] [address] | | + + + + +---------+ + + | Performing | Address | City/State/Zipcode | Phone Number | | Organization | | | | + +---------+ + + | EXTERNAL LAB | | | | + +---------+ + + Urinalysis, Reflex Microscopic and/or Culture (01/05/2016 10:17 AM PDT) + + + + + + | Component | Value | Ref Range | Performed | Pathologist | | | | | At | Signature | + + + + + + | Color | YELLOWComment: Testing | | EXTERNAL | | | | performed at [facility], [address] | | LAB | | | | [address], | | | | | | [place] [address] | | | | + + + + + + | Clarity | CLEARComment: Testing | | EXTERNAL | | | | performed at [facility], [address] | | LAB | | | | [address], | | | | | | [place] [address] | | | | + + + + + + | Specific | 1.004Comment: Testing | 1.002 - 1.030 | EXTERNAL | | | [place] | performed at [facility], [address] | | LAB | | | | [address], | | | | | | [place] [address] | | | | + + + + + + | Leukocyte | NEGATIVEComment: Testing | | EXTERNAL | | | Esterase, | performed at [facility], [address] | | LAB | | | Urine | [address], | | | | | | [place] [address] | | | | + + + + + + | Nitrite, | NEGATIVEComment: Testing | | EXTERNAL | | | Urine | performed at [facility], [address] | | LAB | | | | [address], | | | | | | [place] [address] | | | | + + + + + + | Urobilinoge | 0.2Comment: Testing | mg/dL | EXTERNAL | | | n, Urine | performed at [facility], [address] | | LAB | | | | [address], | | | | | | [place] [address] | | | | + + + + + + | Protein, | NEGATIVEComment: Testing | mg/dL | EXTERNAL | | | Urine | performed at [facility], [address] | | LAB | | | | [address], | | | | | | [place] [address] | | | | + + + + + + | pH, Urine | 7.0Comment: Testing | 5.0 - 8.0 | EXTERNAL | | | | performed at [facility], [address] | | LAB | | | | [address], | | | | | | [place] [address] | | | | + + + + + + | Blood, | TRACE (A)Comment: | | EXTERNAL | | | Urine | Testing performed at | | LAB | | | | [facility], [address] [facility] | | | | | | [place] | | | | | | [address] | | | | + + + + + + | Ketones | 15 (A)Comment: Testing | mg/dL | EXTERNAL | | | | performed at [facility], [address] | | LAB | | | | [address], | | | | | | [place] [address] | | | | + + + + + + | Bilirubin, | NEGATIVEComment: Testing | | EXTERNAL | | | Urine | performed at [facility], [address] | | LAB | | | | [address], | | | | | | [place] [address] | | | | + + + + + + | Glucose, | NEGATIVEComment: Testing | mg/dL | EXTERNAL | | | Urine | performed at [facility], [address] | | LAB | | | | [address], | | | | | | [place] [address] | | | | + + + + + + + + | Specimen | + + | | + + + +---------+ + + | Performing | Address | City/State/Zipcode | Phone Number | | Organization | | | | + +---------+ + + | EXTERNAL LAB | | | | + +---------+ + + Urinalysis, Microscopic Only (01/05/2016 10:17 AM PDT) + + + + + + | Component | Value | Ref Range | Performed | Pathologist | | | | | At | Signature | + + + + + + | WBC, UA | 0-2Comment: Testing | 0 - 5 /hpf | EXTERNAL | | | | performed at [facility], [address] | | LAB | | | | [address], | | | | | | [place] [address] | | | | + + + + + + | RBC, UA | 6-10Comment: Testing | 0 - 5 /hpf | EXTERNAL | | | | performed at [facility], [address] | | LAB | | | | [address], | | | | | | [place] [address] | | | | + + + + + + | Epithelial | 26-50Comment: Testing | /lpf | EXTERNAL | | | Cells | performed at [facility], [address] | | LAB | | | | [address], | | | | | | [place] [address] | | | | + + + + + + | Bacteria, | NONE SEENComment: | | EXTERNAL | | | UA | Testing performed at | | LAB | | | | [facility], [address] | | | | | | [place] | | | | | | [address] | | | | + + + + + + | HYALINE | NONE SEENComment: | | EXTERNAL | | | CASTS UA | Testing performed at | | LAB | | | | [facility], [address] | | | | | | [place] | | | | | | [address] | | | | + + + + + + + + | Specimen | + + | | + + + +---------+ + + | Performing | Address | City/State/Zipcode | Phone Number | | Organization | | | | + +---------+ + + | EXTERNAL LAB | | | | + +---------+ + + Iron and Iron Binding Capacity (01/05/2016 5:29 AM PDT) + + + + + + | Component | Value | Ref Range | Performed | Pathologist | | | | | At | Signature | + + + + + + | Iron | 24 (L)Comment: Testing | 30 - 180 ug/dL | EXTERNAL | | | | performed at [facility], [address] | | LAB | | | | [address], | | | | | | [place] [address] | | | | + + + + + + | TIBC | 140 (L)Comment: Testing | 260 - 490 ug/dL | EXTERNAL | | | | performed at [facility], [address] | | LAB | | | | [address], | | | | | | [place] [address] | | | | + + + + + + | Iron | 17Comment: Testing | 15 - 50 % | EXTERNAL | | | Saturation | performed at [facility], [address] | | LAB | | | | [address], | | | | | | [place] [address] | | | | + + + + + + + + | Specimen | + + | Blood specimen | | (specimen) | + + + +---------+ + + | Performing | Address | City/State/Zipcode | Phone Number | | Organization | | | | + +---------+ + + | EXTERNAL LAB | | | | + +---------+ + + PTT (01/05/2016 5:29 AM PDT) + + + + + + | Component | Value | Ref Range | Performed | Pathologist | | | | | At | Signature | + + + + + + | aPTT, | 31Comment: Testing | 23 - 32 seconds | EXTERNAL | | | Patient | performed at [facility];[address] | | LAB | | | | [address];[place] | | | | | | [address] | | | | + + + + + + + + | Specimen | + + | Blood specimen | | (specimen) | + + + +---------+ + + | Performing | Address | City/State/Zipcode | Phone Number | | Organization | | | | + +---------+ + + | EXTERNAL LAB | | | | + +---------+ + + Protime INR (01/05/2016 5:29 AM PDT) + + + + + + | Component | Value | Ref Range | Performed | Pathologist | | | | | At | Signature | + + + + + + | INR | 1.1Comment: REFERENCE | | EXTERNAL | | | | RANGE:0.9 - 1.2 | | LAB | | | | NON-ANTICOAGULATED2.0 | | | | | | - 3.0 ALL OTHER | | | | | | THERAPEUTIC | | | | | | INDICATIONS2.5 - 3.5 | | | | | | MECHANICAL HEART VALVES, | | | | | | RECURRENT OR SYSTEMIC | | | | | | EMBOLISMTesting | | | | | | performed at [facility];[address] | | | | | | [address];[place], [place] | | | | | | [address] | | | | + + + + + + + + | Specimen | + + | Blood specimen | | (specimen) | + + + +---------+ + + | Performing | Address | City/State/Zipcode | Phone Number | | Organization | | | | + +---------+ + + | EXTERNAL LAB | | | | + +---------+ + + Retic Count (01/05/2016 5:29 AM PDT) + + + + + + | Component | Value | Ref Range | Performed | Pathologist | | | | | At | Signature | + + + + + + | % | 1.6Comment: Testing | 0.4 - 2.7 % | EXTERNAL | | | Reticulocyt | performed at [facility], [address] | | LAB | | | e Count | [address], | | | | | | [place] [address] | | | | + + + [...] + +---------+ + + External Lab: CBC (01/05/2016 5:29 AM PDT) + + + + + + | Component | Value | Ref Range | Performed | Pathologist | | | | | At | Signature | + + + + + + | WBC | 5.27Comment: Testing | 3.80 - 11.00 | EXTERNAL | | | | performed at [facility], [address] | K/uL | LAB | | | | [address], | | | | | | [place] [address] | | | | + + + + + + | RED CELL | 3.35 (L)Comment: Testing | 3.70 - 5.10 | EXTERNAL | | | COUNT | performed at [facility], [address] | M/uL | LAB | | | | [address], | | | | | | [place] [address] | | | | + + + + + + | Hgb | 9.6 (L)Comment: Testing | 11.3 - 15.5 | EXTERNAL | | | | performed at [facility], [address] | g/dL | LAB | | | | [address], | | | | | | [place] [address] | | | | + + + + + + | Hematocrit, | 29.2 (L)Comment: Testing | 34.0 - 46.0 % | EXTERNAL | | | POC | performed at [facility], [address] | | LAB | | | | [address], | | | | | | [place] [address] | | | | + + + + + + | MCV | 87.0Comment: Testing | 80.0 - 100.0 fl | EXTERNAL | | | | performed at [facility], [address] | | LAB | | | | [address], | | | | | | [place] [address] | | | | + + + + + + | MCH | 28.6Comment: Testing | 27.0 - 34.0 pg | EXTERNAL | | | | performed at [facility], [address] | | LAB | | | | [address], | | | | | | [place] [address] | | | | + + + + + + | MCHC | 32.9Comment: Testing | 32.0 - 35.5 | EXTERNAL | | | | performed at [facility], [address] | g/dL | LAB | | | | [address], | | | | | | [place] [address] | | | | + + + + + + | RDW-CV | 44.2Comment: Testing | 37 - 53 fl | EXTERNAL | | | | performed at [facility], [address] | | LAB | | | | [address], | | | | | | [place] [address] | | | | + + + + + + | Platelet | 238Comment: Testing | 150 - 400 K/uL | EXTERNAL | | | Count | performed at [facility], [address] | | LAB | | | Plasma | [address], | | | | | | [place] [address] | | | | + + + + + + | MPV | 6.8Comment: Testing | fl | EXTERNAL | | | | performed at [facility], [address] | | LAB | | | | [address], | | | | | | [place] [address] | | | | + + + + + + | Differentia | AUTOMATEDComment: | | EXTERNAL | | | l Type | Testing performed at | | LAB | | | | [facility], [address] | | | | | | [place] | | | | | | [address] | | | | + + + + + + | % Segmented | 76.65Comment: Testing | % | EXTERNAL | | | | performed at [facility], [address] | | LAB | | | Neutrophils | [address], | | | | | | [place] [address] | | | | + + + + + + | % | 11.96Comment: Testing | % | EXTERNAL | | | Lymphocytes | performed at [facility], [address] | | LAB | | | | [address], | | | | | | [place] [address] | | | | + + + + + + | % Monocytes | 8.68Comment: Testing | % | EXTERNAL | | | | performed at [facility], [address] | | LAB | | | | [address], | | | | | | [place] [address] | | | | + + + + + + | % | 1.84Comment: Testing | % | EXTERNAL | | | Eosinophils | performed at [facility], [address] | | LAB | | | | [address], | | | | | | [place] [address] | | | | + + + + + + | % Basophils | 0.87Comment: Testing | % | EXTERNAL | | | | performed at [facility], [address] | | LAB | | | | [address], | | | | | | [place] [address] | | | | + + + + + + | Absolute | 4.04Comment: Testing | 1.90 - 7.40 | EXTERNAL | | | Segmented | performed at [facility], [address] | K/uL | LAB | | | Neutrophils | [address], | | | | | | [place] [address] | | | | + + + + + + | Absolute | 0.63 (L)Comment: Testing | 1.00 - 3.90 | EXTERNAL | | | Lymphocytes | performed at [facility], [address] | K/uL | LAB | | | | [address], | | | | | | [place] [address] | | | | + + + + + + | Absolute | 0.46Comment: Testing | 0.00 - 0.80 | EXTERNAL | | | Monocytes | performed at [facility], [address] | K/uL | LAB | | | | [address], | | | | | | [place] [address] | | | | + + + + + + | Absolute | 0.10Comment: Testing | 0.00 - 0.50 | EXTERNAL | | | Eosinophils | performed at [facility], [address] | K/uL | LAB | | | | [address], | | | | | | [place] [address] | | | | + + + + + + | Absolute | 0.05Comment: Testing | 0.00 - 0.10 | EXTERNAL | | | Basophils | performed at [facility], [address] | K/uL | LAB | | | | [address], | | | | | | [place] [address] | | | | + + + + + + + + | Specimen | + + | Blood specimen | | (specimen) | + + + +---------+ + + | Performing | Address | City/State/Zipcode | Phone Number | | Organization | | | | + +---------+ + + | EXTERNAL LAB | | | | + +---------+ + + Phosphorus (01/05/2016 5:29 AM PDT) + + + + + + | Component | Value | Ref Range | Performed | Pathologist | | | | | At | Signature | + + + + + + | PHOSPHORUS | 4.3Comment: Testing | 2.3 - 4.8 mg/dL | EXTERNAL | | | | performed at [facility], [address] | | LAB | | | | [address], | | | | | | [place] [address] | | | | + + + + + + + + | Specimen | + + | Blood specimen | | (specimen) | + + + +---------+ + + | Performing | Address | City/State/Zipcode | Phone Number | | Organization | | | | + +---------+ + + | EXTERNAL LAB | | | | + +---------+ + + Magnesium (01/05/2016 5:29 AM PDT) + + + + + + | Component | Value | Ref Range | Performed | Pathologist | | | | | At | Signature | + + + + + + | Magnesium | 1.7Comment: Testing | 1.7 - 2.4 mg/dL | EXTERNAL | | | | performed at [facility], [address] | | LAB | | | | [address], | | | | | | [place] [address] | | | | + + + [...] + +---------+ + + Basic Metabolic Panel (01/05/2016 5:29 AM PDT) + + + + + + | Component | Value | Ref Range | Performed | Pathologist | | | | | At | Signature | + + + + + + | Na | 134 (L)Comment: Testing | 135 - 143 | EXTERNAL | | | | performed at [facility], [address] | mmol/L | LAB | | | | [address], | | | | | | [place] [address] | | | | + + + + + + | K | 4.0Comment: Testing | 3.5 - 4.9 | EXTERNAL | | | | performed at [facility], [address] | mmol/L | LAB | | | | [address], | | | | | | [place] [address] | | | | + + + + + + | Cl | 98 (L)Comment: Testing | 99 - 109 mmol/L | EXTERNAL | | | | performed at [facility], [address] | | LAB | | | | [address], | | | | | | [place] [address] | | | | + + + + + + | CO2 | 25Comment: Testing | 23 - 32 mmol/L | EXTERNAL | | | | performed at [facility], [address] | | LAB | | | | [address], | | | | | | [place] [address] | | | | + + + + + + | Anion Gap | 15Comment: Testing | 5 - 20 mmol/L | EXTERNAL | | | | performed at [facility], [address] | | LAB | | | | [address], | | | | | | [place] [address] | | | | + + + + + + | Glucose, | 83Comment: Testing | 65 - 99 mg/dL | EXTERNAL | | | Fasting | performed at [facility], [address] | | LAB | | | | [address], | | | | | | [place] [address] | | | | + + + + + + | BUN | 6 (L)Comment: Testing | 8 - 25 mg/dL | EXTERNAL | | | | performed at [facility], [address] | | LAB | | | | [address], | | | | | | [place] [address] | | | | + + + + + + | Creatinine | 0.53Comment: Testing | 0.50 - 1.00 | EXTERNAL | | | | performed at [facility], [address] | mg/dL | LAB | | | | [address], | | | | | | [place] [address] | | | | + + + + + + | BUN/Creatin | 11Comment: Testing | | EXTERNAL | | | ine Ratio | performed at [facility], [address] | | LAB | | | | [address], | | | | | | [place] [address] | | | | + + + + + + | Calcium | 9.9Comment: Testing | 8.5 - 10.5 | EXTERNAL | | | | performed at [facility], [address] | mg/dL | LAB | | | | [address], | | | | | | [place] [address] | | | | + + + + + + | Estimated | >60Comment: GFR <60: | mL/min/1.73m2 | EXTERNAL | | | GFR | CHRONIC KIDNEY DISEASE, | | LAB | | | | IF FOUND OVER A 3 MONTH | | | | | | PERIOD.GFR <15: KIDNEY | | | | | | FAILURE.FOR | | | | | | AMERICANS, MULTIPLY THE | | | | | | CALCULATED GFR BY | | | | | | 1.210.Testing performed | | | | | | at [facility], [address] | | | | | | [address], | | | | | | [place] [address] | | | | + + + + + + + + | Specimen | + + | Blood specimen | | (specimen) | + + + +---------+ + + | Performing | Address | City/State/Zipcode | Phone Number | | Organization | | | | + +---------+ + + | EXTERNAL LAB | | | | + +---------+ + + MRSA NAAT (01/04/2016 10:00 PM PDT) + + | Specimen | + + | | + + + + + | Narrative | Performed At | + + + | SOURCE NARES(NOSE) | EXTERNAL LAB | | Testing performed at [facility];[address] [place] [address];[place] [address] MRSA PCR | | | NEGATIVE Testing performed at | | | [facility];[address] [place] [address];[place] [address] | | + + + + +---------+ + + | Performing | Address | City/State/Zipcode | Phone Number | | Organization | | | | + +---------+ + + | EXTERNAL LAB | | | | + +---------+ + + Culture, Blood, 2nd Specimen (01/04/2016 8:42 PM PDT) + + | Specimen | + + | Blood specimen | | (specimen) | + + + + + | Narrative | Performed At | + + + | Specimen Description BLOOD, PERIPHERAL DRAW | EXTERNAL LAB | | SPECIAL REQUESTS LWRIST | | | Testing performed at [facility];[address] | | | [facility];[place] [address] CULTURE | | | NO GROWTH 6 DAYS | | | Testing performed at [facility], [address] [facility], | | | [place] [address] | | + + + + +---------+ + + | Performing | Address | City/State/Zipcode | Phone Number | | Organization | | | | + +---------+ + + | EXTERNAL LAB | | | | + +---------+ + + Culture, Blood (01/04/2016 8:35 PM PDT) + + | Specimen | + + | Blood specimen | | (specimen) | + + + + + | Narrative | Performed At | + + + | Specimen Description BLOOD, PERIPHERAL DRAW | EXTERNAL LAB | | SPECIAL REQUESTS RAC | | | Testing performed at [facility];[address] | | | [facility];[place] [address] CULTURE | | | NO GROWTH 6 DAYS | | | Testing performed at [facility], [address] [facility], | | | [place] [address] | | + + + + +---------+ + + | Performing | Address | City/State/Zipcode | Phone Number | | Organization | | | | + +---------+ + + | EXTERNAL LAB | | | | + +---------+ + + Sedimentation rate, automated (01/04/2016 8:35 PM PDT) + + + + + + | Component | Value | Ref Range | Performed | Pathologist | | | | | At | Signature | + + + + + + | Sed Rate | 94 (H)Comment: Testing | 0 - 30 mm/Hr | EXTERNAL | | | | performed at [facility], [address] | | LAB | | | | [address], | | | | | | [place] [address] | | | | + + + + + + + + | Specimen | + + | Blood specimen | | (specimen) | + + + +---------+ + + | Performing | Address | City/State/Zipcode | Phone Number | | Organization | | | | + +---------+ + + | EXTERNAL LAB | | | | + +---------+ + + C-Reactive Protein (01/04/2016 8:35 PM PDT) + + + + + + | Component | Value | Ref Range | Performed | Pathologist | | | | | At | Signature | + + + + + + | CRP | 11.2 (H)Comment: Testing | mg/dL | EXTERNAL | | | | performed at [facility], [address] | | LAB | | | | [address], | | | | | | [place] [address] | | | | + + + [...] + | Diagnosis | + + | Discitis of lumbar region Other and unspecified disc disorder of lumbar region | + + documented in this encounter
--- OUTSIDE RECORDS SUMMARY | ~2019-11-01 | XMS | Encounter Summary ---
Demographics + + + | Address | [address] | | | [place] [address] | + + + | Home Phone | | + + + | Preferred Language | Unknown | + + + | Marital Status | | + + + | Druze Affiliation | 1001 | + + + | Race | Unknown | + + + | Ethnic Group | Unknown | + + + Author + + + | Author | [facility] | | | and [place] | + + + | Organization | [facility] | | [...] | [place] | | | | | [address] | | + + + + + Care Team Providers + +------+ + | Care External Relations Manager Name | Role | Phone | [...] + + | 10/09/ | Hospital | [facility] | Jojo Henry | Malignant neoplasm | | 2018 | Encounter | [facility] | MD Jessica [address] | of right breast in | | | | [facility] [address] | [place], [place] | female, estrogen | | | | [address] | [address] | receptor positive, | | | | [place] [address] | | unspecified site of | | | | [phone] | | breast (HCC) | | | [...] mouth 2 times daily. 60 tablet 1 Ejesqnv-Wwshrdvuvnyym-Sndabnhu (EXCEDRIN PO) Take 250 mg by mouth [...] | | | | | [place], [place] | | | | | | [address] | | | | | | | | +--------+ + + + + documented as of this encounter Visit Diagnoses + + | Diagnosis | + + | Malignant neoplasm of right breast in female, estrogen receptor positive, unspecified | | site of breast (HCC) - Primary | + + documented in this encounter"
--- OUTSIDE RECORDS SUMMARY | ~2019-11-01 | XMS | Encounter Summary ---
Demographics + + + | Address | [address] | | | [place] [address] | + + + | Home Phone | | + + + | Preferred Language | Unknown | + + + | Marital Status | | + + + | Anabaptism Affiliation | 1001 | + + + | Race | Unknown | + + + | Ethnic Group | Unknown | + + + Author + + + | Author | [facility] | | | and [place] | + + + | Organization | [facility] | | | and [place] [...] [place], [place] | | | | | [address] | | + + + + + Care Team Providers + +------+ + | Care Laboratory Miller Name | Role | Phone | + +------+ + | Maude Means MD | PCP | | + +------+ + Encounter Details +--------+ + + + + | Date | Type | Department | Care Team | Description | +--------+ + + + + | 01/15/ | Orders Only | [facility] | Conversion | | | 2015 | | INFECTIOUS DISEASE | Transaction, | | | | | [address] | Provider Unknown | | | | | [place] | [phone] | | | | | [address] | | | | | | [phone] | | | +--------+ + + + [...] [place] | | | | | | [address] | | | | | | | | +--------+ + + + + documented as of this encounter Procedures + +--------+ + + + | Procedure Name | Priori | Date/Time | Associated Diagnosis | Comments | | | ty | | | | + +--------+ + + + | EXTERNAL LAB: CBC | Routin | 01/16/2016 | | Results for this | | | e | 12:00 AM | | procedure are in the | | | | PDT | | results section. | + +--------+ + + + | SEDIMENTATION RATE, | Routin | 01/16/2016 | | Results for this | | AUTOMATED | e | 12:00 AM | | procedure are in the | | | | PDT | | results section. | + +--------+ + + + | C-REACTIVE PROTEIN | Routin | 01/16/2016 | | Results for this | | | e | 12:00 AM | | procedure are in the | | | | PDT | | results section. | + +--------+ + + + | COMPREHENSIVE | Routin | 01/16/2016 | | Results for this | | METABOLIC PANEL | e | 12:00 AM | | procedure are in the | | | | PDT | | results section. | + +--------+ + + + documented in this encounter Results Sedimentation rate, automated (01/16/2016 12:00 AM PDT) + +--------+ + + + | Component | Value | Ref Range | Performed | Pathologist | | | | | At | Signature | + +--------+ + + + | Sed Rate | 47 (A) | 0 - 20 | EXTERNAL [...] + +---------+ + + External Lab: CBC (01/16/2016 12:00 AM PDT) + + + + + + | Component | Value | Ref Range | Performed | Pathologist | | | | | At | Signature | + + + + + + | WBC | 5.0 | 10 | EXTERNAL | | | | | | LAB | | + + + + + + | RED CELL | 3.89 | 10 | EXTERNAL | | | COUNT | | | LAB | | + + + + + + | Hgb | 11.2 (A) | 12.0 - 16.0 | EXTERNAL | | | | | g/dL | LAB | | + + + + + + | Hematocrit, | 34.2 (A) | 35 - 45 % | EXTERNAL | | | POC | | | LAB | | + + + + + + | MCV | 87.8 | fL | EXTERNAL | | | | | | LAB | | + + + + + + | MCH | 29 | pg | EXTERNAL | | | | | | LAB | | + + + + + + | MCHC | 33 | g/dL | EXTERNAL | | | | | | LAB | | + + + + + + | Platelet | 230 | K/ L | EXTERNAL | | | Count | | | LAB | | | Plasma | | | | | + + + + + + | RDW-CV | 14.1 | % | EXTERNAL | | | [...] + + + | % Segmented | 59.4 | % | EXTERNAL | | | | | | LAB | | | Neutrophils | | | | | + + + + + + | % | 25.3 | % | EXTERNAL | | | Lymphocytes | | | LAB | | + + + + + + | % Monocytes | 10.1 | % | EXTERNAL | | | | | | LAB | | + + + + + + | % | 5.1 | % | EXTERNAL | | | Eosinophils | | | LAB | | + + + + + + | % Basophils | 0.1 | % | EXTERNAL | | | [...] | + +---------+ + + C-Reactive Protein (01/16/2016 12:00 AM PDT) + + + + + + | Component | Value | Ref Range | Performed | Pathologist | | | | | At | Signature | + + + + + + | CRP | 21.7 (A) | 0 - 5 mg/L | [...] + +---------+ + + Comprehensive Metabolic Panel (01/16/2016 12:00 AM PDT) + +---------+ + + + | Component | Value | Ref Range | Performed | Pathologist | | | | | At | Signature | + +---------+ + + + | Glucose, | 107 (A) | 70 - 100 mg/dL | EXTERNAL | | | Fasting | | | LAB | | + +---------+ + + + | BUN | 13 | mg/dL | EXTERNAL | | | | | | LAB | | + +---------+ + + + | Creatinine | 0.72 | mg/dL | EXTERNAL | | | | | | LAB | | + +---------+ + + + | BUN/Creatin | 18.1 | | EXTERNAL | | | ine Ratio | | | LAB | | + +---------+ + + + | Calcium | 10.2 | mg/dL | EXTERNAL | | | | | | LAB | | + +---------+ + + + | Protein, | 6.6 | g/dL | EXTERNAL | | | Total | | | LAB | | + +---------+ + + + | Albumin | 3.7 | | EXTERNAL | | | | | | LAB | | + +---------+ + + + | Globulin | 2.9 | | EXTERNAL | | | | | | LAB | | + +---------+ + + + | A/G Ratio | 1.3 | | EXTERNAL | | | | | | LAB | | + +---------+ + + + | Bilirubin | 0.4 | mg/dL | EXTERNAL | | | Total | | | LAB | | + +---------+ + + + | ALP, | 104 | | EXTERNAL | | | External | | | LAB | | + +---------+ + + + | ALT | 13 | U/L | EXTERNAL | | | | | | LAB | | + +---------+ + + + | AST | 19 | U/L | EXTERNAL | | | | | | LAB | | + +---------+ + + + | Na | 130 (A) | 132 - 143 | EXTERNAL | | | | | mmol/L | LAB | | + +---------+ + + + | K | 4.1 | mmol/L | EXTERNAL | | | | | | LAB | | + +---------+ + + + | Cl | 97 | mmol/L | EXTERNAL | | | | | | LAB | | + +---------+ + + + | CO2 | 27 | mmol/L | EXTERNAL | | | | | | LAB | | + +---------+ + + + | Anion Gap | 10.1 | mmol/L | EXTERNAL | | | | | | LAB | | + +---------+ + + + | Estimated | 82 | mg/dL | EXTERNAL | | | GFR | [...]
--- OUTSIDE RECORDS SUMMARY | ~2019-11-01 | XMS | Encounter Summary ---
Demographics + + + | Address | [address] | | | [place] [address] | + + + | Home Phone | | + + + | Preferred Language | Unknown | + + + | Marital Status | | + + + | Religion Affiliation | 1001 | + + + | Race | Unknown | + + + | Ethnic Group | Unknown | + + + Author + + + | Author | [facility] | | | and Christianana | + + + | Organization | [facility] | | | and [...] [place] | | | | | [address] | | + + + + + Care Team Providers + +------+ + | Care Blueprint Clerk Name | Role | Phone | + +------+ + PCP | Unavailable | + +------+ + Encounter Details +--------+ + + + + | Date | Type | Department | Care Team | Description | +--------+ + + + + | 01/03/ | Hospital | [facility] | Conversion | Diagnosis unknown | | 2016 | Encounter | CONVERSION DEP [address] | Transaction, | | | | | SCOTT KELSEY | Provider Unknown | | | | | [place] | [phone] | | | | | [address] | | | | | | [phone] | | | +--------+ + + + [...] [place] | | | | | | [address] | | | | | | | [...]
--- OUTSIDE RECORDS SUMMARY | ~2019-11-01 | XMS | Encounter Summary ---
Demographics + + + | Address | [address] | | | [place] [address] | + + + | Home Phone | | + + + | Preferred Language | Unknown | + + + | Marital Status | | + + + | Restorationist Affiliation | 1001 | + + + | Race | Unknown | + + + | Ethnic Group | Unknown | + + + Author + + + | Author | [facility] | | | and Christianana | + + + | Organization | [facility] | | | and [...] [place] | | | | | [address] | | + + + + + Care Team Providers + +------+ + | Care Home Day Care Provider Name | Role | Phone | + [...] | | | | | [address] | [place] | | | | | [place], [place] | [address] | | | | | [address] | | | | | | [phone] | | | +--------+ + + + [...] | | | | | [facility] [place] | | | | | | [id number] | | | | | | | [...]
--- OUTSIDE RECORDS SUMMARY | ~2019-11-01 | XMS | Encounter Summary ---
Demographics + + + | Address | [address] | | | [place] [address] | + + + | Home Phone [...] | Author | [facility] | | | and Christianana | + + + | Organization | [facility] | | | and Christianana [...] | [place] | | | | | [address] | | + + + + + Care Team Providers + +------+ + | Care Fleet Driver Name | Role | Phone | + [...] + + | 09/25/ | Telephone | [facility] | Preston Canseco, | Psychosocial Support | | 2018 | | [facility] | COMPOUND COATING MACHINE OFFBEARER | | | | | [facility] [address] | | | | | | [address] [place] | | | | | | [place] [address] | | | | | | [phone] | | | +--------+ + + + [...] [place] | | | | | | [address] | | | | | | | | +--------+ + + + + documented as of this encounter Visit Diagnoses Not on filedocumented in this encounter"
--- OUTSIDE RECORDS SUMMARY | ~2019-11-01 | XMS | Encounter Summary ---
Demographics + + + | Address | [address] | | | [place] [address] | + + + | Home Phone [...] | Author | [facility] | | | and Christianana | + + + | Organization | [facility] | | [...] [place], [place] | | | | | [address] | | + + + + + Care Team Providers + +------+ + | Care Flux Mixer Name | Role | Phone | + [...] 2016 | | GASTROENTEROLOGY | [address] [place] | | | | | [address] [place] | [address] [place], [place] | | | | | [address] [place], [place] | [address] | | | | | [address] | | | | | | [phone] | | | +--------+ + + + [...] | | | | [place] | | | | | | [address] | | | | | | | [...] | | | | External | Location: [facility] | | | | | | PROCEDURE UNIT | | | | + + + + + + documented in this encounter Visit Diagnoses Not on filedocumented in this encounter"
--- OUTSIDE RECORDS SUMMARY | ~2019-11-01 | XMS | Clinical Summary ---
Demographics + + + | Address | [address] | | | [place] [address] | + + + | Home Phone [...] + + | Author | [facility] (Historical as of | | | 06-06-19) | + + + | Organization | [facility] (Historical as of | | | 06-06-19) [...] Team Providers + +------+ + | Care Molder Setter Name | Role | Phone | + [...] +------+-------+ + | MEDICARE | MEDICA | [id number] | | | [address] | | | RE | | | | [place] [address] | | | IP-OP | | | | | + +--------+ +------+-------+ + | UNITED HEALTHCARE | UNITED | [id number] | | | | | | | [...] Self | [birth year] Home: | [address] | | | al/Fam | | 1 | [phone] | [place] | | | [place] | | | [address] | [address] | + +--------+ +--------+ + +
--- OUTSIDE RECORDS SUMMARY | ~2019-11-01 | XMS | Encounter Summary ---
Demographics + + + | Address | [address] | | | [place] [address] | + + + | Home Phone | | + + + | Preferred Language | Unknown | + + + | Marital Status | | + + + | Methodist Affiliation | 1001 | + + + | Race | Unknown | + + + | Ethnic Group | Unknown | + + + Author + + + | Author | [facility] | | | and [place]ana | + + + | Organization | [facility] | [...] [place], [place] | | | | | [address] | | + + + + + Care Team Providers + +------+ + | Care Pest Control Chemical Technician Name | Role | Phone | [...] | | | | | | | [address] | | +--------+--------+ + + + + [...] Kenny ARNOLD | | | | | [phone] | [place] [address] | | +--------+ + + + + [...] | | | | | | [place], [place] | | | | | | [address] | | | | | | | [...] for comparison only - no result from [facility]. | | + + + + +---------+ + + | Performing | Address | City/State/Zipcode | Phone Number | | Organization | | | | + +---------+ + + | [facility] | | | | + +---------+ + + documented in this encounter Visit Diagnoses Not on filedocumented in this encounter"
--- OUTSIDE RECORDS SUMMARY | ~2019-11-01 | XMS | Encounter Summary ---
Demographics + + + | Address | [address] | | | [place] [address] | + + + | Home Phone [...] | Author | [facility] | | | and [place]ana | + + + | Organization | [facility] | | | and Christianana [...] [place], [place] | | | | | [address] | | + + + + + Care Team Providers + +------+ + | Care Ruby On Rails Software Developer Name | Role | Phone | + +------+ + PCP | Unavailable | + +------+ + Encounter Details +--------+ + + + + | Date | Type | Department | Care Team | Description | +--------+ + + + + | 07/28/ | [facility] | [facility] | Brett Wing MD | | | 1997 | Encounter | MED CTR GENERIC OP | [address] | | | | | CONV DEPT [address] | [address] [place] | | | | | [place], | [address] | | | | | [place] [address] | | | | | | [phone] | | | +--------+ + + + [...] [place] | | | | | | [address] | | | | | | | | +--------+ + + + + documented as of this encounter Visit Diagnoses Not on filedocumented in this encounter"
--- OUTSIDE RECORDS SUMMARY | ~2019-11-01 | XMS | Encounter Summary ---
Demographics + + + | Address | [address] | | | [place] [address] | + + + | Home Phone [...] Author | [facility] | | | and Christianana | + + + | Organization | [facility] | | | and [...] | [place] | | | | | [address] | | + + + + + Care Team Providers + +------+ + | Care Ceramic Chemist Name | Role | Phone | + [...] | | | | | | [place] [address] | | | | | | [phone] | | | +--------+ + + + [...] [place] | | | | | | [place], [place] | | | | | | [address] | | | | | | | | +--------+ + + + + documented as of this encounter Visit Diagnoses Not on filedocumented in this encounter"
--- OUTSIDE RECORDS SUMMARY | ~2019-11-01 | XMS | Encounter Summary ---
Demographics + + + | Address | [address] | | | [place] [address] | + + + | Home Phone [...] | Author | [facility] | | | and Christianana | + + + | Organization | [facility] | [...] | [place] | | | | | [address] | | + + + + + Care Team Providers + +------+ + | Care Cable Strander Name | Role | Phone | + [...] | | | | | | [place] [address] | [address] | | | | | | Phone: | Phone: | | | | | | [phone] | [phone] | | | | | | Fax: | Fax: | | | | | | [phone] | [phone] | +--------+--------+ + + + + Encounter Details +--------+---------+ + + + | Date | Type | Department | Care Team | Description | +--------+---------+ + + + | 02/21/ | Office | [facility] | Brett Wing MD | Ulcerative | | 2016 | Visit | GASTROENTEROLOGY | [address], [place] | rectosigmoiditis | | | | [address] [place] | [address] [place], [place] | without complication | | | | [address] [place], [place] | [address] | ([facility]) (Primary Dx) | | | | [address] | | | | | | [phone] | | | +--------+---------+ + + + [...] / COLONOSCOPY; Surgeon: Brett Wing MD; Location: [facility] Family History Problem Relation Age of Onset [...] made to ensure accuracy; however, inadvertent computerized business taxes specialist errors may be pre sent. 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
--- OUTSIDE RECORDS SUMMARY | ~2019-11-01 | XMS | Encounter Summary ---
Demographics + + + | Address | [address] | | | [place] [address] | + + + | Home Phone [...] | Author | [facility] | | | and [place] | + + + | Organization | [facility] | | | and [place]ana [...] [place] | | | | | [address] | | + + + + + Care Team Providers + +------+ + | Care Boring Machine Operator Double End Name | Role | Phone | + [...] ulcerative | [address] | [address], | | | | | colitis with | [address] [place], [place] | [place] [address] | | | | | | [address] [place] | [place], | | | | | complication | [place], [place] | [place] [address] | | | | | ([facility]LY [facility]) | [address] | Phone: | | | | | Procedures | Phone: | [phone] | | | | | [place] | [phone] | Fax: | | | | | SIGMOIDOSCOP | Fax: | [phone] | | | | | Y FLX DX | [phone] | | | | | | W/COLLJ SPEC | | | | | | | BR/WA IF | | | | | | | PFRMD [place] | | | | | | | [...] + + | 03/07/ | Office | [facility] | Brett Wing MD | Other ulcerative | | 2016 | Visit | GASTROENTEROLOGY | [address], [place] | colitis with | | | | [address] [place] | [address] [place], [place] | complication (HCC) | | | | [address] [place], [place] | [address] | | | | | [address] | | | | | | [phone] | | | +--------+---------+ + + + [...] [place] | | | | | | [place], [place] | | | | | | [address] | | | | | | | | +--------+ + + + + documented as of this encounter Visit Diagnoses + + | Diagnosis | + + | Other ulcerative colitis with complication (HCC) | + + documented in this encounter
--- OUTSIDE RECORDS SUMMARY | ~2019-11-01 | XMS | Encounter Summary ---
Demographics + + + | Address | [address] | | | [place] [address] | + + + | Home Phone [...] + | Author | [facility] | | | and Christianana | + + + | Organization | [facility] | | | and Christianana [...] | [place] | | | | | [address] | | + + + + + Care Team Providers + +------+ + | Care Emulsification Operator Name | Role | Phone | [...] | | | | | | [place] [address] | | | | | | [phone] | | | +--------+ + + + [...] | | | | [place] | | | | | | [address] | | | | | | | | +--------+ + + + + documented as of this encounter Visit Diagnoses Not on filedocumented in this encounter"
--- OUTSIDE RECORDS SUMMARY | ~2019-11-01 | XMS | Encounter Summary ---
Demographics + + + | Address | [address] | | | [place] [address] | + + + | Home Phone | | + + + | Preferred Language | Unknown | + + + | Marital Status | | + + + | Protestant Affiliation | 1001 | + + + | Race | Unknown | + + + | Ethnic Group | Unknown | + + + Author + + + | Author | [facility] | | | and Christianana | + + + | Organization | [facility] | | | and [...] | [place] | | | | | [address] | | + + + + + Care Team Providers + +------+ + | Care Ceramic Tiler Name | Role | Phone | + [...] + + | 11/06/ | Hospital | [facility] | Jojo Henry | Malignant neoplasm | | 2019 | Encounter | MED CTR RADIATION | MD Jessica [address] | of upper-outer | | | | [facility]COLOGY CLINIC [address] | [place], [place] | quadrant of right | | | | [address] [place] | [address] | breast in female, | | | | [place] [address] | | estrogen receptor | | | | [phone] | | positive (HCC) | | | [...] mouth 2 times daily. 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
--- OUTSIDE RECORDS SUMMARY | ~2019-11-01 | XMS | Encounter Summary ---
Demographics + + + | Address | [address] | | | [place] [address] | + + + | Home Phone | | + + + | Preferred Language | Unknown | + + + | Marital Status | | + + + | Samaritan Affiliation | 1001 | + + + | Race | Unknown | + + + | Ethnic Group | Unknown | + + + Author + + + | Author | [facility] | | | and Christianana | + + + | Organization | [facility] | | | and Christianana [...] [place], [place] | | | | | [address] | | + + + + + Care Team Providers + +------+ + | Care Top Dyeing Machine Tender Name | Role | Phone | + +------+ + PCP | Unavailable | + +------+ + Encounter Details +--------+ + + + + | Date | Type | Department | Care Team | Description | +--------+ + + + + | 01/03/ | [facility] | [facility] | Christiano Morrell | Discitis of lumbar | | 2016 - | Encounter | [facility] [address] | MD [address] | region | | | | [address] | [address]VD [place], [place] | | | 01/08/ | | [place], [place] | [address] | | | 2015 | | [id number] | | | | | | [phone] | | | +--------+ + + + [...] Date of Service: 01/09/16 0843 Status: Signed Electrical Inspector: Bhavesh Ramires MD (Physician) Patient: Yamilet Hernandes : 1950 Date of Admission: 01/04/2016 Date of Discharge: 01/09/2016 Treatment Team: Consulting Physician: Reyna Hagan MD Consulting Physician: Carlee Lentz MD Consulting Physician: Juan Vickers MD Admitting Provider: Christiano Morrell MD Discharging Provider: Bhavesh Ramires MD [...] gets worse with movement. She presented to [facility] ED, where she had MRI spine, that [...] next 6 weeks at the hospital in [place] and the patient was then discharged. Discharge [...] attem pting to be set up at [facility] in [place], will have Weekly CMP, CBC, ESr a [...] Site) Marco Cuellar DO [address] [facility] [address] On 01/16/2016 Medication List START taking these [...] 2 patches onto the skin daily. nystatin 882160 UNIT/ML suspension QTY: 200 mL Refills: 0 [...] are the prescriptions that you need to sheepskin pickler. You may get the following medications from any pharmacy - Acetaminophen 650 MG Tabs - cefTRIAXone 1 G Solr - lidocaine 5 % - nystatin 259572 UNIT/ML suspension - ondansetron 4 MG tablet [...] Date of Service: 01/09/16 1320 Status: Signed Electrical Inspector: Valerie Perkins RN (Registered Nurse) Patient leaving via private vehicle with her spouse for home self care. All discharge instr uctions discussed. Patients questions asked and answered. Scripts given. Katheryn piano case maker setup outpatient abx. Marco Gregory DO - 01/08/2016 10:28 AM PDTFormatting of this note might be different from the lyndsey gilaura. Progress Notes by Marco Cuellar DO at 01/08/16 1028 Author: Marco Cuellar DO Service: (none) Author Type: Physician Filed: 01/08/16 1058 Date of Service: 01/08/16 1028 Status: Signed Electrical Inspector: Marco Cuellar DO (Physician) [facility] Service: Infectious Disease Progress Note Hospital Day: LOS: 4 days Post-Op Day: * No surgery found * SUBJECTIVE Patient Summary: 65 y.o. female with significant past medical history of ulcerative colitis, currently quiesced and, osteoarthritis, status post right total knee replacement [facility] on December 26, 2015. Should spinal anesthesia at that time. After surgery, she states hav ing progressive lower back pain, making it difficult for her to walk. MRI of the spine done at [facility] was reported as showing discitis, possible osteomyel itis at her lumbar spine. Dr. Lentz, who was call for neurosurgery on 01/03 had been contact ed. At the time of her transfer to [facility], she was reportedly afebrile, hemodynamically stab [...] issues in [facility] ROS No fever, chills sweats. No nausea, [...] markedly elevated. -There was no interventional radiologist scale reclamation tender when patient was admitted, so no direction [...] Notes by Bhavesh Ramires MD at 01/08/16 6883 Author: Bhavesh Ramires MD Service: Hospitalist Author Type: Physician Filed: 01/08/16 1409 Date of Service: 01/08/16939 Status: Signed Electrical Inspector: Bhavesh Ramires MD (Physician) [facility] Service: Hospitalist Progress Note Hospital Day: LOS: [...] is attempting to be set up at [facility] in [place], hopefully we will be able to have [...] management as well as Computerized P hysician Cad Intern. Dictation software, Aggios, used which may contain error for similar [...] 152 Date of Service: 01/07/161516 Status: Signed Electrical Inspector: Bhavesh Ramires MD (Physician) [facility] Service: Hospitalist Progress Note Hospital Day: LOS: [...] management as well as Computerized P hysician Cad Intern. Dictation software, Aggios, used which may contain error for similar [...] Management by Catie Babcock RN at 01/07/16 0781 Author: Catie Babcock RN Service: (none) Author Type: Flight Inspector Filed: 01/07/16 8124 Date of Service: 01/07/16 392 Status: Signed Electrical Inspector: Catie Babcock RN (Flight Inspector) Pt would like to receive her out patient antibiotics at [facility] in [place], [place]. CM spoke with Hospital Meal Room Hand Marysol at [facility] and she informed CM that their "Day [...] Date of Service: 01/07/16 1014 Status: Signed Electrical Inspector: Marco Cuellar DO (Physician) [facility] Service: Infectious Disease Progress Note Hospital Day: [...] walk. MRI of the spine done at [facility] was reported as showing discitis, possible osteomyel itis at her lumbar spine. Dr. Lentz, who was call for neurosurgery on 01/03 had been contact ed. At the time of her transfer to [facility], she was reportedly afebrile, hemodynamically stab [...] markedly elevated. -There was no interventional radiologist scale reclamation tender when patient was admitted, so no direction [...] Status: Full Code MARCO CUELLAR DO 01/07/2016 orkMarco DO - 10:48 AM PDT Progress Notes by Marco Cuellar DO at 01/06/16 1046 Author: Marco Cuellar DO Service: (none) Author Type: Physician Filed: 01/06/16 1119 Date of Service: 01/06/16 1048 Status: Signed Electrical Inspector: Marco Cuellar DO (Physician) [facility] Service: Infectious Disease Progress Note Hospital Day: [...] walk. MRI of the spine done at [facility] was reported as showing discitis, possible osteomyel itis at her lumbar spine. Dr. Lentz, who was call for neurosurgery on 01/03 had been contact ed. At the time of her transfer to [facility], she was reportedly afebrile, hemodynamically stab [...] markedly elevated. -There was no interventional radiologist scale reclamation tender when patient was admitted, so no direction [...] 1552 Date of Service: 01/06/16829 Status: Signed Electrical Inspector: Bhavesh Ramires MD (Physician) [facility] Service: Hospitalist Progress Note Hospital Day: LOS: [...] management as well as Computerized P hysician Cad Intern. Dictation software, Aggios, used which may contain error for similar [...] (none) Author Type: Registered Dietitian Filed: 01/05/16 0642 Date of Service: 01/05/161605 Status: Signed Electrical Inspector: Roberta Davis RD (Registered Dietitian) 01/05/16 5968 Subjective Timepoint Admit (wt loss. ) Pt [...] Case Management by Toney Samuel RN at 01/05/16 Author: Toney Samuel RN Service: (none) Author Type: Flight Inspector Filed: 01/05/166 Date of Service: 01/05/161523 Status: Addendum Electrical Inspector: Toney Samuel RN (Flight Inspector) Related Notes: Original Note by Toney Samuel RN (Flight Inspector) filed at 01/05/16 3557 Met with patient, explained CM role and discussed discharge planning, Pt is a 65 y.o., fema le admitted with back pain. Patient states she is independent with all ADL's, uses walker fo r DME following knee surgery. She denies outpatient medical services such as dialysis, wou nd fpc infusion, coumadin clinic, or home oxygen.She was [...] at home ) Home Care Services No ([facility] just started to visit for RN and PT) Caregiver after Discharge No Mental Status Oriented Power of Business Continuity Global Director No Anticipated Discharge Plan Post Acute Care Needs None at this time Plan communicated to patient/family Yes Resources Financial concerns No Transportation issues No Patient/Family concerns No Prescription Plan Yes Name of Pharmacy [facility] in [place] Previous home health equipment No Vascular access device No Ostomy/Drains/Appliances No Anticipated Disposition Facility Type Home Medicare Important Message (KRISTOPHER) Not applicable Met with: Yamilet and discussed discharge planning, Pt is a 65 y.o., female Patient's PCP is: Puneet Donovan Patient's insurance:Medicaid Coverage concerns: None Medication coverage/concerns: None [facility] resources utilized / needed: None Assistance in transportation: to provide Identification of any specific education / training: None Barriers to Discharge / Alternative housing needed: None Anticipated DCP: Home with spouse Toney Samuel onver ailyn [place], Provider Unknown - 01/05/2016 8:39 AM PDT Progress Notes by Tracee Ptael RPH at 01/05/16838 Author: Tracee Patel RPH Service: (none) Author Type: Pharmacist Filed: 01/05/16838 Date of Service: 01/05/16838 Status: Signed Electrical Inspector: Tracee Patel RPH (Pharmacist) Patient lists "Rash" [...] 184 Date of Service: 01/05/16758 Status: Signed Electrical Inspector: Bhavesh Ramires MD (Physician) [facility] Service: Hospitalist Progress Note Hospital Day: LOS: [...] management as well as Computerized P hysician Cad Intern. Dictation software, Aggios, used which may contain error for similar sounding words even af ter review. Portions of this chart may have been copied from previous notes for continuity of care. Disposition: ?home Code Status: Full Code Bhavesh Ramires MD 01/05/2016 onversion Transaction, Provider Unknown - 01/04/2016 8:17 PM PDTFormatting of this note might be diff erent from the original. Progress Notes by Catie Harrell [facility] at 01/04/16 2017 Author: Catie Harrell RPH Service: (none) Author Type: Pharmacist Filed: 01/04/162016 Date of Service: 01/04/162016 Status: Signed Electrical Inspector: Catie Harrell RPH (Pharmacist) Clinical Pharmacy Note: [...] [address]TH[address] | | | | | | [place], [place] | | | | | | [id number] | | | | | | | [...] EXTERNAL LAB | | Testing performed at [facility];[address];[place] [address] | | + + + + +---------+ [...] EXTERNAL | | | | performed at [facility], [address] | | LAB | | | | [address], | | | | | | [place] [address] | | | | + + + [...] EXTERNAL | | | | performed at [facility], [address] | K/uL | LAB | | | | [address], | | | | | | [place] [address] | | | | + + + + + + | RED CELL | 3.51 (L)Comment: Testing | 3.70 - 5.10 | EXTERNAL | | | COUNT | performed at [facility], [address] | M/uL | LAB | | | | [address], | | | | | | [place] [address] | | | | + + + + + + | Hgb | 10.1 (L)Comment: Testing | 11.3 - 15.5 | EXTERNAL | | | | performed at [facility], [address] | g/dL | LAB | | | | [address], | | | | | | [place] [address] | | | | + + + + + + | Hematocrit, | 30.6 (L)Comment: Testing | 34.0 - 46.0 % | EXTERNAL | | | POC | performed at [facility], [address] | | LAB | | | | [address], | | | | | | [place] [address] | | | | + + + + + + | MCV | 87.2Comment: Testing | 80.0 - 100.0 fl | EXTERNAL | | | | performed at [facility], [address] | | LAB | | | | [address], | | | | | | [place] [address] | | | | + + + + + + | MCH | 28.7Comment: Testing | 27.0 - 34.0 pg | EXTERNAL | | | | performed at [facility], [address] | | LAB | | | | [address], | | | | | | [place] [address] | | | | + + + + + + | MCHC | 32.9Comment: Testing | 32.0 - 35.5 | EXTERNAL | | | | performed at [facility], [address] | g/dL | LAB | | | | [address], | | | | | | [place] [address] | | | | + + + + + + | RDW-CV | 45.1Comment: Testing | 37 - 53 fl | EXTERNAL | | | | performed at [facility], [address] | | LAB | | | | [address], | | | | | | [place] [address] | | | | + + + + + + | Platelet | 271Comment: Testing | 150 - 400 K/uL | EXTERNAL | | | Count | performed at [facility], [address] | | LAB | | | Plasma | [address], | | | | | | [place] [address] | | | | + + + + + + | MPV | 7.0Comment: Testing | fl | EXTERNAL | | | | performed at [facility], [address] | | LAB | | | | [address], | | | | | | [place] [address] | | | | + + + + + + | Differentia | AUTOMATEDComment: | | EXTERNAL | | | l Type | Testing performed at | | LAB | | | | [facility], [address] | | | | | | [place] | | | | | | [address] | | | | + + + + + + | % Segmented | 67.40Comment: Testing | % | EXTERNAL | | | | performed at [facility], [address] | | LAB | | | Neutrophils | [address], | | | | | | [place] [address] | | | | + + + + + + | % | 16.91Comment: Testing | % | EXTERNAL | | | Lymphocytes | performed at [facility], [address] | | LAB | | | | [address], | | | | | | [place] [address] | | | | + + + + + + | % Monocytes | 10.12Comment: Testing | % | EXTERNAL | | | | performed at [facility], [address] | | LAB | | | | [address], | | | | | | [place] [address] | | | | + + + + + + | % | 4.39Comment: Testing | % | EXTERNAL | | | Eosinophils | performed at [facility], [address] | | LAB | | | | [address], | | | | | | [place] [address] | | | | + + + + + + | % Basophils | 1.18Comment: Testing | % | EXTERNAL | | | | performed at [facility], [address] | | LAB | | | | [address], | | | | | | [place] [address] | | | | + + + + + + | Absolute | 3.40Comment: Testing | 1.90 - 7.40 | EXTERNAL | | | Segmented | performed at [facility], [address] | K/uL | LAB | | | Neutrophils | [address], | | | | | | [place] [address] | | | | + + + + + + | Absolute | 0.85 (L)Comment: Testing | 1.00 - 3.90 | EXTERNAL | | | Lymphocytes | performed at [facility], [address] | K/uL | LAB | | | | [address], | | | | | | [place] [address] | | | | + + + + + + | Absolute | 0.51Comment: Testing | 0.00 - 0.80 | EXTERNAL | | | Monocytes | performed at [facility], [address] | K/uL | LAB | | | | [address], | | | | | | [place] [address] | | | | + + + + + + | Absolute | 0.22Comment: Testing | 0.00 - 0.50 | EXTERNAL | | | Eosinophils | performed at [facility], [address] | K/uL | LAB | | | | [address], | | | | | | [place] [address] | | | | + + + + + + | Absolute | 0.06Comment: Testing | 0.00 - 0.10 | EXTERNAL | | | Basophils | performed at [facility], [address] | K/uL | LAB | | | | [address], | | | | | | [place] [address] | | | | + + + [...] | | | | | [place] [address] | | | | + + + [...] EXTERNAL LAB | | Testing performed at [facility];[address] [facility];[place] [address] | | + + + + +---------+ [...] | | | | | [place] [address] | | | | + + + + + + | RED CELL | 3.41 (L)Comment: Testing | 3.70 - 5.10 | EXTERNAL | | | COUNT | performed at [facility], [address] | M/uL | LAB | | | | [address], | | | | | | [place] [address] | | | | + + + + + + | Hgb | 9.6 (L)Comment: Testing | 11.3 - 15.5 | EXTERNAL | | | | performed at [facility], [address] | g/dL | LAB | | | | [address], | | | | | | [place] [address] | | | | + + + + + + | Hematocrit, | 29.6 (L)Comment: Testing | 34.0 - 46.0 % | EXTERNAL | | | POC | performed at [facility], [address] | | LAB | | | | [address], | | | | | | [place] [address] | | | | + + + + + + | MCV | 86.8Comment: Testing | 80.0 - 100.0 fl | EXTERNAL | | | | performed at [facility], [address] | | LAB | | | | [address], | | | | | | [place] [address] | | | | + + + + + + | MCH | 28.2Comment: Testing | 27.0 - 34.0 pg | EXTERNAL | | | | performed at [facility], [address] | | LAB | | | | [address], | | | | | | [place] [address] | | | | + + + + + + | MCHC | 32.5Comment: Testing | 32.0 - 35.5 | EXTERNAL | | | | performed at [facility], [address] | g/dL | LAB | | | | [address], | | | | | | [place] [address] | | | | + + + + + + | RDW-CV | 42.9Comment: Testing | 37 - 53 fl | EXTERNAL | | | | performed at [facility], [address] | | LAB | | | | [address], | | | | | | [place] [address] | | | | + + + + + + | Platelet | 271Comment: Testing | 150 - 400 K/uL | EXTERNAL | | | Count | performed at [facility], [address] | | LAB | | | Plasma | [address], | | | | | | [place] [address] | | | | + + + + + + | MPV | 7.2Comment: Testing | fl | EXTERNAL | | | | performed at [facility], [address] | | LAB | | | | [address], | | | | | | [place] [address] | | | | + + + + + + | Differentia | AUTOMATEDComment: | | EXTERNAL | | | l Type | Testing performed at | | LAB | | | | [facility], [address] | | | | | | [place] | | | | | | [address] | | | | + + + + + + | % Segmented | 64.22Comment: Testing | % | EXTERNAL | | | | performed at [facility], [address] | | LAB | | | Neutrophils | [address], | | | | | | [place] [address] | | | | + + + + + + | % | 19.35Comment: Testing | % | EXTERNAL | | | Lymphocytes | performed at [facility], [address] | | LAB | | | | [address], | | | | | | [place] [address] | | | | + + + + + + | % Monocytes | 11.00Comment: Testing | % | EXTERNAL | | | | performed at [facility], [address] | | LAB | | | | [address], | | | | | | [place] [address] | | | | + + + + + + | % | 4.25Comment: Testing | % | EXTERNAL | | | Eosinophils | performed at [facility], [address] | | LAB | | | | [address], | | | | | | [place] [address] | | | | + + + + + + | % Basophils | 1.18Comment: Testing | % | EXTERNAL | | | | performed at [facility], [address] | | LAB | | | | [address], | | | | | | [place] [address] | | | | + + + + + + | Absolute | 3.04Comment: Testing | 1.90 - 7.40 | EXTERNAL | | | Segmented | performed at [facility], [address] | K/uL | LAB | | | Neutrophils | [address], | | | | | | [place] [address] | | | | + + + + + + | Absolute | 0.92 (L)Comment: Testing | 1.00 - 3.90 | EXTERNAL | | | Lymphocytes | performed at [facility], [address] | K/uL | LAB | | | | [address], | | | | | | [place] [address] | | | | + + + + + + | Absolute | 0.52Comment: Testing | 0.00 - 0.80 | EXTERNAL | | | Monocytes | performed at [facility], [address] | K/uL | LAB | | | | [address], | | | | | | [place] [address] | | | | + + + + + + | Absolute | 0.20Comment: Testing | 0.00 - 0.50 | EXTERNAL | | | Eosinophils | performed at [facility], [address] | K/uL | LAB | | | | [address], | | | | | | [place] [address] | | | | + + + + + + | Absolute | 0.06Comment: Testing | 0.00 - 0.10 | EXTERNAL | | | Basophils | performed at [facility], [address] | K/uL | LAB | | | | [address], | | | | | | [place] [address] | | | | + + + [...] | EXTERNAL LAB | | performed at [facility];[address] [place] [address];[place] [address] | | + + + + +---------+ [...] EXTERNAL | | | | performed at [facility], [address] | | LAB | | | | [address], | | | | | | [place] [address] | | | | + + + + + + | Clarity | CLEARComment: Testing | | EXTERNAL | | | | performed at [facility], [address] | | LAB | | | | [address], | | | | | | [place] [address] | | | | + + + + + + | Specific | 1.004Comment: Testing | 1.002 - 1.030 | EXTERNAL | | | Ralph | performed at [facility], [address] | | LAB | | | | [address], | | | | | | [place] [address] | | | | + + + + + + | Leukocyte | NEGATIVEComment: Testing | | EXTERNAL | | | Esterase, | performed at [facility], [address] | | LAB | | | Urine | [address], | | | | | | [place] [address] | | | | + + + + + + | Nitrite, | NEGATIVEComment: Testing | | EXTERNAL | | | Urine | performed at [facility], [address] | | LAB | | | | [address], | | | | | | [place] [address] | | | | + + + + + + | Urobilinoge | 0.2Comment: Testing | mg/dL | EXTERNAL | | | n, Urine | performed at [facility], [address] | | LAB | | | | [address], | | | | | | [place] [address] | | | | + + + + + + | Protein, | NEGATIVEComment: Testing | mg/dL | EXTERNAL | | | Urine | performed at [facility], [address] | | LAB | | | | [address], | | | | | | [place] [address] | | | | + + + + + + | pH, Urine | 7.0Comment: Testing | 5.0 - 8.0 | EXTERNAL | | | | performed at [facility], [address] | | LAB | | | | [address], | | | | | | [place] [address] | | | | + + + + + + | Blood, | TRACE (A)Comment: | | EXTERNAL | | | Urine | Testing performed at | | LAB | | | | [facility], [address] [facility] | | | | | | [place] | | | | | | [address] | | | | + + + + + + | Ketones | 15 (A)Comment: Testing | mg/dL | EXTERNAL | | | | performed at [facility], [address] | | LAB | | | [address], | | | | | | [place] [address] | | | | + + + + + + | Bilirubin, | NEGATIVEComment: Testing | | EXTERNAL | | | Urine | performed at [facility], [address] | | LAB | | | | [address], | | | | | | [place] [address] | | | | + + + + + + | Glucose, | NEGATIVEComment: Testing | mg/dL | EXTERNAL | | | Urine | performed at [facility], [address] | | LAB | | | | [address], | | | | | | [place] [address] | | | | + + + [...] | | | | | [place] [address] | | | | + + + + + + | RBC, UA | 6-10Comment: Testing | 0 - 5 /hpf | EXTERNAL | | | | performed at [facility], [address] | | LAB | | | | [address], | | | | | | [place] [address] | | | | + + + + + + | Epithelial | 26-50Comment: Testing | /lpf | EXTERNAL | | | Cells | performed at [facility], [address] | | LAB | | | | [address], | | | | | | [place] [address] | | | | + + + + + + | Bacteria, | NONE SEENComment: | | EXTERNAL | | | UA | Testing performed at | | LAB | | | | [facility], [address] | | | | | | [place] | | | | | | [address] | | | | + + + + + + | HYALINE | NONE SEENComment: | | EXTERNAL | | | CASTS UA | Testing performed at | | LAB | | | | [facility], [address] | | | | | | [place] | | | | | | [address] | | | | + + + [...] | | | | | [place] [address] | | | | + + + + + + | TIBC | 140 (L)Comment: Testing | 260 - 490 ug/dL | EXTERNAL | | | | performed at [facility], [address] | | LAB | | | | [address], | | | | | | [place] [address] | | | | + + + + + + | Iron | 17Comment: Testing | 15 - 50 % | EXTERNAL | | | Saturation | performed at [facility], [address] | | LAB | | | | [address], | | | | | | [place] [address] | | | | + + + [...] | | | Patient | performed at [facility];[address] | | LAB | | | | [address];[place] | | | | | | [address] | | | | + + + [...] | | | | | performed at [facility];[address] | | | | | | [address];[place], [place] | | | | | | [address] | | | | + + + [...] | | | Reticulocyt | performed at [facility], [address] | | LAB | | | e Count | [address], | | | | | | [place] [address] | | | | + + + [...] EXTERNAL | | | | performed at [facility], [address] | K/uL | LAB | | | | [address], | | | | | | [place] [address] | | | | + + + + + + | RED CELL | 3.35 (L)Comment: Testing | 3.70 - 5.10 | EXTERNAL | | | COUNT | performed at [facility], [address] | M/uL | LAB | | | | [address], | | | | | | [place] [address] | | | | + + + + + + | Hgb | 9.6 (L)Comment: Testing | 11.3 - 15.5 | EXTERNAL | | | | performed at [facility], [address] | g/dL | LAB | | | | [address], | | | | | | [place] [address] | | | | + + + + + + | Hematocrit, | 29.2 (L)Comment: Testing | 34.0 - 46.0 % | EXTERNAL | | | POC | performed at [facility], [address] | | LAB | | | | [address], | | | | | | [place] [address] | | | | + + + + + + | MCV | 87.0Comment: Testing | 80.0 - 100.0 fl | EXTERNAL | | | | performed at [facility], [address] | | LAB | | | | [address], | | | | | | [place] [address] | | | | + + + + + + | MCH | 28.6Comment: Testing | 27.0 - 34.0 pg | EXTERNAL | | | | performed at [facility], [address] | | LAB | | | | [address], | | | | | | [place] [address] | | | | + + + + + + | MCHC | 32.9Comment: Testing | 32.0 - 35.5 | EXTERNAL | | | | performed at [facility], [address] | g/dL | LAB | | | | [address], | | | | | | [place] [address] | | | | + + + + + + | RDW-CV | 44.2Comment: Testing | 37 - 53 fl | EXTERNAL | | | | performed at [facility], [address] | | LAB | | | | [address], | | | | | | [place] [address] | | | | + + + + + + | Platelet | 238Comment: Testing | 150 - 400 K/uL | EXTERNAL | | | Count | performed at [facility], [address] | | LAB | | | Plasma | [address], | | | | | | [place] [address] | | | | + + + + + + | MPV | 6.8Comment: Testing | fl | EXTERNAL | | | | performed at [facility], [address] | | LAB | | | | [address], | | | | | | [place] [address] | | | | + + + + + + | Differentia | AUTOMATEDComment: | | EXTERNAL | | | l Type | Testing performed at | | LAB | | | | [facility], [address] | | | | | | [place] | | | | | | [address] | | | | + + + + + + | % Segmented | 76.65Comment: Testing | % | EXTERNAL | | | | performed at [facility], [address] | | LAB | | | Neutrophils | [address], | | | | | | [place] [address] | | | | + + + + + + | % | 11.96Comment: Testing | % | EXTERNAL | | | Lymphocytes | performed at [facility], [address] | | LAB | | | | [address], | | | | | | [place] [address] | | | | + + + + + + | % Monocytes | 8.68Comment: Testing | % | EXTERNAL | | | | performed at [facility], [address] | | LAB | | | | [address], | | | | | | [place] [address] | | | | + + + + + + | % | 1.84Comment: Testing | % | EXTERNAL | | | Eosinophils | performed at [facility], [address] | | LAB | | | | [address], | | | | | | [place] [address] | | | | + + + + + + | % Basophils | 0.87Comment: Testing | % | EXTERNAL | | | | performed at [facility], [address] | | LAB | | | | [address], | | | | | | [place] [address] | | | | + + + + + + | Absolute | 4.04Comment: Testing | 1.90 - 7.40 | EXTERNAL | | | Segmented | performed at [facility], [address] | K/uL | LAB | | | Neutrophils | [address], | | | | | | [place] [address] | | | | + + + + + + | Absolute | 0.63 (L)Comment: Testing | 1.00 - 3.90 | EXTERNAL | | | Lymphocytes | performed at [facility], [address] | K/uL | LAB | | | | [address], | | | | | | [place] [address] | | | | + + + + + + | Absolute | 0.46Comment: Testing | 0.00 - 0.80 | EXTERNAL | | | Monocytes | performed at [facility], [address] | K/uL | LAB | | | | [address], | | | | | | [place] [address] | | | | + + + + + + | Absolute | 0.10Comment: Testing | 0.00 - 0.50 | EXTERNAL | | | Eosinophils | performed at [facility], [address] | K/uL | LAB | | | | [address], | | | | | | [place] [address] | | | | + + + + + + | Absolute | 0.05Comment: Testing | 0.00 - 0.10 | EXTERNAL | | | Basophils | performed at [facility], [address] | K/uL | LAB | | | | [address], | | | | | | [place] [address] | | | | + + + [...] EXTERNAL | | | | performed at [facility], [address] | | LAB | | | | [address], | | | | | | [place] [address] | | | | + + + [...] EXTERNAL | | | | performed at [facility], [address] | | LAB | | | | [address], | | | | | | [place] [address] | | | | + + + [...] | | | | | [place] [address] | | | | + + + + + + | K | 4.0Comment: Testing | 3.5 - 4.9 | EXTERNAL | | | | performed at [facility], [address] | mmol/L | LAB | | | | [address], | | | | | | [place] [address] | | | | + + + + + + | Cl | 98 (L)Comment: Testing | 99 - 109 mmol/L | EXTERNAL | | | | performed at [facility], [address] | | LAB | | | | [address], | | | | | | [place] [address] | | | | + + + + + + | CO2 | 25Comment: Testing | 23 - 32 mmol/L | EXTERNAL | | | | performed at [facility], [address] | | LAB | | | | [address], | | | | | | [place] [address] | | | | + + + + + + | Anion Gap | 15Comment: Testing | 5 - 20 mmol/L | EXTERNAL | | | | performed at [facility], [address] | | LAB | | | | [address], | | | | | | [place] [address] | | | | + + + + + + | Glucose, | 83Comment: Testing | 65 - 99 mg/dL | EXTERNAL | | | Fasting | performed at [facility], [address] | | LAB | | | | [address], | | | | | | [place] [address] | | | | + + + + + + | BUN | 6 (L)Comment: Testing | 8 - 25 mg/dL | EXTERNAL | | | | performed at [facility], [address] | | LAB | | | | [address], | | | | | | [place] [address] | | | | + + + + + + | Creatinine | 0.53Comment: Testing | 0.50 - 1.00 | EXTERNAL | | | | performed at [facility], [address] | mg/dL | LAB | | | | [address], | | | | | | [place] [address] | | | | + + + + + + | BUN/Creatin | 11Comment: Testing | | EXTERNAL | | | ine Ratio | performed at [facility], [address] | | LAB | | | | [address], | | | | | | [place] [address] | | | | + + + + + + | Calcium | 9.9Comment: Testing | 8.5 - 10.5 | EXTERNAL | | | | performed at [facility], [address] | mg/dL | LAB | | | | [address], | | | | | | [place] [address] | | | | + + + [...] [address] | | | | | | [address], | | | | | | [place] [address] | | | | + + + [...] EXTERNAL LAB | | Testing performed at [facility];[address] [place] [address];[place] [address] MRSA PCR | | | NEGATIVE Testing performed at | | | [facility];[address] [place] [address];[place] [address] | | + + + + +---------+ [...] LWRIST | | | Testing performed at [facility];[address] | | [facility];[place] [address] CULTURE | | | NO GROWTH 6 DAYS | | | Testing performed at [facility], [address] [facility] | | | [place] [address] | | + + + + +---------+ [...] RAC | | | Testing performed at [facility];[address] | | | [facility];[place] [address] CULTURE | | | NO GROWTH 6 DAYS | | | Testing performed at [facility], [address] [facility], | | | [place] [address] | | + + + + +---------+ [...] EXTERNAL | | | | performed at [facility], [address] | | LAB | | | | [address], | | | | | | [place] [address] | | | | + + + [...] EXTERNAL | | | | performed at [facility], [address] | | LAB | | | | [address], | | | | | | [place] [address] | | | | + + + [...]
--- OUTSIDE RECORDS SUMMARY | ~2019-11-01 | XMS | Encounter Summary ---
Demographics + + + | Address | [address] | | | [place] [address] | + + + | Home Phone | | + + + | Preferred Language | Unknown | + + + | Marital Status | | + + + | Oriental Orthodox Affiliation | 1001 | + + + | Race | Unknown | + + + | Ethnic Group | Unknown | + + + Author + + + | Author | [facility] | | | and Christianana | + + + | Organization | [facility] | | [...] [place] | | | | | [address] | | + + + + + Care Team Providers + +------+ + | Care General Ledger Bookkeeper Name | Role | Phone | + [...] | | | | | | | ([facility]) | | | | | | | Ulcerative | | | | | | | colitis | | | | | | | without | | | | | | | complication | | | | | | | s, | | | | | | | unspecified | | | | | | | location | | | | | | | ([facility]) | | | | | | | [...] [facility] OP | [address], [place] | | | | | [address] | [address] [place], [place] | | | | | [place], [place] | [address] | | | | | [phone] | | | | | | [phone] | | | +--------+---------+ + + + [...] might be different f rom the original. [facility] DISCHARGE SUMMARY Pt. Name/Age/: Yamilet Hernandes 66 [...] Medications cefTRIAXone 2 g/100 mL [facility]n [facility] COURSE: Please refer to the H&P for [...] back pain, and was admi tted to [facility] on 01/03 and diagnosed with discitis, [...] muscle pain. In the emergency department at [facility], she was found to have atrial fibrillation [...] - 01/29: Discussed with Dr Hagan at [facility], who is covering Dr. Reddy's patients, recommen ded discussing leukopenia/thrombocytopenia with him today, continued ceftriaxone - 01/30: Discussed with Dr. Reddy at [facility], who recommended switching over to once daily Lev aquin IV to finish complete course of therapy with 02/14 being last day of therapy. Patient w ill need to f/u with Dr. Reddy's office in 1 week after discharge from the hospital. Today wa s 1st dose of Levaquin IV. Will need to direct care counselor patient about risk of tendonitis, tendon [...] Schatzki's ring that was dilated with 48 Prydeinig Vega dilator. There was gastroparesis minor antral [...] For hospital follow up Contact information: [address] [place] [address] Follow up with Brett Wing MD. Schedule an appointment as soon as possible for a visit in 2 weeks. Specialty: Gastroenterology Why: For follow up of your Ulcerative colitis Contact information: [address], [place] [address] [facility] [phone] Follow up with Jorge Reddy DO. Schedule an appointment as soon as possible for a visit i n 1 week. Specialty: Internal Medicine Why: For follow up on your history and treatment of Diskitis Contact information: [address] [facility] [address] Condition: Patient being discharged with condition improved. Diet: Dental soft, fiber restricted, vegetarian, please make sure to drink plenty of liquid s to keep good oral fluid hydration up to 2 L of fluids per day. Greater than 30 minutes were spent on discharge and coordination of post-hospital care. Electronically signed by: Richardson Cramer DO, 02/04/2016 16:11 [facility] Portions of this chart may have been created with Curves voice recognition software. Occasi onal wrong-word or [...] that are mashed or put through a honey grader and blender. In a ddition, you may need [...] Also, other treatments will likely be needed. [id number] [employer] [place] [address]. All righ ts reserved. This information is [...] or as directed by your healthcare provider [phone] [employer]. [address] [place] [address]. All righ ts reserved. This information is [...] tea, cola, and other beverages with caffeine gl1ujlg pe r day. Talkwith your doctor about whether you should eliminate caffeine. Avoid acme-ucb-jnmlvug medicines that have caffeine in them. Let your doctor know what medicines you take, including prescription and kqzg-jvi-bbpsmo r medicines, as well as any supplements. [...] your heartbeat, or an unusually fast heartbeat 4298-5222 [employer]. [address] [place] [address], [place] [address]. All righ ts reserved. This information is [...] fibrillation that are new or getting worse [id number] [employer]. [address] [place] [address]. All righ ts reserved. This information is [...] spasms, cramping, or twitching Seizures Gait disturbances 5520-32[address] [employer] [place] [address]. All righ ts reserved. This information is [...] Yourhealth care providermay have you see a counselor aide to come up with the best food choices for you. A counselor aide can help ensure that you eat foods marichuy t are safe while getting proper nourishment. Foods that are often safe No two people respond the same to all foods. But these choices are often safe to eat during a flare-up: Applesauce Joice toast Flavored gelatin Vanilla pudding Custard White rice Plain pasta Canned peaches or pears Baked potatoes Tuna packed in water Mashedpotatoes Skinless chicken Instant oatmeal 5886-0268 [employer]. [address] [place] [address], [place] [address]. All righ ts reserved. 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 AttachmentsThe following attachments cannot be sent through Care Everywhere.ESOPHAGEAL DILA TION (FRISIAN)DYSPHAGIA, TREATING (FRISIAN)DYSPHAGIA, UNDERSTANDING (FRISIAN)LEVOFLOXACIN OR AL TABLET (FRISIAN)documented in this encounter Medications at Time of [...] discussion on Saturday Dr. Wells of the [facility] is orthodontic band maker over the weekend and will not see the patient unless requested Tim House RN - 02/03/2016 11:40 AM PDTMetopro lol total 200 mg po given. Ambulated around the hallway using walker. HR 103-110's. A.Fib.El ectronically signed by Tim Ruiz RN at 02/03/2016 11:41 AM Richardson Brand DO - 02/03/2016 9:29 AM PDT [facility] PROGRESS NOTE Patient: Yamilet Hernandes : 1950: Age: 66 y.o. MedRec: [id number] PCP: Puneet Donovan Admission date: 01/29/2016 Hospital [...] CKTOTAL No results for input(s): PHART, PO2ART, MBJ2AKB, KJB3SEU, BEART, Z6HFYUCN in the last 168 h ours. No results for input(s): SPECSOURCE, PHPOCB, HCO3, TCO2, BEART, BE, WWME7LGW in the last 16 8 hours. Invalid input(s): QEAVZ2SH, OOEQ9TT ECHOCARDIOGRAM REPORT STUDY DATE: 01/30/2016 CLINICAL HISTORY/DIAGNOSIS: [...] Schatzki's ring that was dilated with 48 Prydeinig Vega dilator. There was gastroparesis minor antral [...] up today. No acute events overnight. On primer expeditor and drier yesterday patient has remained well controlled in [...] - 01/29: Discussed with Dr Hagan at [facility], who is covering Dr. Reddy's patients, recommen ded discussing leukopenia/thrombocytopenia with him today, continued ceftriaxone - 01/30: Discussed with Dr. Reddy at [facility], who recommended switching over to once daily Lev aquin IV to finish complete course of therapy with 02/14 being last day of therapy. Patient w ill need to f/u with Dr. Reddy's office in 1 week after discharge from the hospital. Today wa s 1st dose of Levaquin IV. Will need to direct care counselor patient about risk of tendonitis, tendon [...] 30 minutes. Richardson Cramer DO 02/03/2016 9:29 [facility] Portions of this chart may have been created with Curves voice recognition software. Occasi onal wrong-word or sound-alike substitutions may have occurred due to the inherent jack itations of voice recognition software. Please read the chart carefully and recognize, using context, where these substitutions have occurred Richardson Brand DO - 02/02/2016 11:46 AM PDT [facility] PROGRESS NOTE Patient: Yamilet Hernandes : 1950: Age: 66 y.o. MedRec: [id number] PCP: Puneet Donovan Admission date: 01/29/2016 Hospital [...] CKTOTAL No results for input(s): PHART, PO2ART, FTL8KBV, ZGY5AIU, BEART, N3BXTFSH in the last 168 h ours. No results for input(s): SPECSOURCE, PHPOCB, HCO3, TCO2, BEART, BE, OTWO9UOP in the last 16 8 hours. Invalid input(s): KVSEL1IH, GCTH1EZ ECHOCARDIOGRAM REPORT STUDY DATE: 01/30/2016 CLINICAL HISTORY/DIAGNOSIS: [...] Schatzki's ring that was dilated with 48 Prydeinig Vega dilator. There was gastroparesis minor antral [...] up today. No acute events overnight. On primer expeditor and drier since yesterday patient has remained well controlled [...] - 01/29: Discussed with Dr Hagan at [facility], who is covering Dr. Reddy's patients, recommen ded discussing leukopenia/thrombocytopenia with him today, continued ceftriaxone - 01/30: Discussed with Dr. Reddy at [facility], who recommended switching over to once daily Lev aquin IV to finish complete course of therapy with 02/14 being last day of therapy. Patient w ill need to f/u with Dr. Reddy's office in 1 week after discharge from the hospital. Today wa s 1st dose of Levaquin IV. Will need to direct care counselor patient about risk of tendonitis, tendon [...] 30 minutes. Richardson Cramer DO 02/02/2016 11:46 [facility] Portions of this chart may have been created with Curves voice recognition software. Occasi onal wrong-word or [...] Richardson Brand DO - 9:40 AM PDT [facility] PROGRESS NOTE Patient: Yamilet Hernandes : 1950: Age: 66 y.o. MedRec: [id number] PCP: Puneet Donovan Admission date: 01/29/2016 Hospital [...] CKTOTAL No results for input(s): PHART, PO2ART, PSE4CQE, KSI1OVF, BEART, Y0MXTDJP in the last 168 h ours. No results for input(s): SPECSOURCE, PHPOCB, HCO3, TCO2, BEART, BE, FXXI1WLX in the last 16 8 hours. Invalid input(s): LMRTM5DN, AGYH3AU ECHOCARDIOGRAM REPORT STUDY DATE: 01/30/2016 CLINICAL HISTORY/DIAGNOSIS: [...] Schatzki's ring that was dilated with 48 Prydeinig Vega dilator. There was gastroparesis minor antral [...] up today. No acute events overnight. On primer expeditor and drier since this morning around 7 AM patient's [...] - 01/29: Discussed with Dr Hagan at [facility], who is covering Dr. Reddy's patients, recommen ded discussing leukopenia/thrombocytopenia with him today, continued ceftriaxone - 01/30: Discussed with Dr. Reddy at [facility], who recommended switching over to once daily Lev aquin IV to finish complete course of therapy with 02/14 being last day of therapy. Patient w ill need to f/u with Dr. Reddy's office in 1 week after discharge from the hospital. Today wa s 1st dose of Levaquin IV. Will need to direct care counselor patient about risk of tendonitis, tendon [...] was 30 minutes. Richardson Cramer, 02/01/2016 9:40 [facility] Portions of this chart may have [...] less than 2.Elect ronically signed by Richardson Craemr DO at 02/03/2016 9:32 AM Richardson Brand DO - 0 01/31/2016 2:42 PM PDT [facility] PROGRESS NOTE Patient: Yamilet Hernandes : 1950: Age: 66 y.o. MedRec: [id number] PCP: Puneet Donovan Admission date: 01/29/2016 Hospital [...] CKTOTAL No results for input(s): PHART, PO2ART, VAT9FZE, BNH1HDJ, BEART, E5QEKTSQ in the last 168 h ours. No results for input(s): SPECSOURCE, PHPOCB, HCO3, TCO2, BEART, BE, VZBN9NGU in the last 16 8 hours. Invalid input(s): UYGHP2RB, OYBQ4YM ECHOCARDIOGRAM REPORT STUDY DATE: 01/30/2016 CLINICAL HISTORY/DIAGNOSIS: [...] Schatzki's ring that was dilated with 48 Prydeinig Vega dilator. There was gastroparesis minor antral [...] colonoscopy. No acute e vents overnight. On primer expeditor and drier patient remains in low 100s to 110s, [...] - 01/29: Discussed with Dr Hagan at [facility], who is covering Dr. Reddy's patients, recommen ded discussing leukopenia/thrombocytopenia with him today, continued ceftriaxone - 01/30: Discussed with Dr. Reddy at [facility], who recommended switching over to once daily Lev aquin IV to finish complete course of therapy with 02/14 being last day of therapy. Patient w ill need to f/u with Dr. Reddy's office in 1 week after discharge from the hospital. Today wa s 1st dose of Levaquin IV. Will need to direct care counselor patient about risk of tendonitis, tendon [...] 30 minutes. Richardson Cramer DO 01/31/2016 14:42 [facility] Portions of this chart may have been created with Curves voice recognition software. Occasi onal wrong-word or [...] Rojas MD - 01/30/2016 8:58 AM PDT [facility]G Hospitalist Progress Note Yamilet Hernandes is [...] This is a preliminary report provided by [employer] JORDYN Costa. A final report is available at [facility]. CT ANGIOGR AM CHEST (PULMONARY) CLINICAL [...] improved - Discussed with Dr Hagan at [facility], who is covering Dr. Reddy's patients, [...] as outlined above. Rico Vasquez 01/30/2016 9:12 [facility] Portions of this chart may have been created with Curves voice recognition software. Occasi onal wrong-word or [...] was made to ensure accuracy, however, inadvertent equipment operating engineer errors may be present . Electronically signed [...] [place] | | | | | | [id number] | | | | | | | [...] | | | | | | [facility]VR ([facility]) Discitis, | | | | | | [...] location | | | | | | ([facility]) | | + + +--------+ + + | AMB REFERRAL TO [facility] | Outpatient | Routin | Discitis, [...] + | [facility] | [address] | [place] | [phone] | | [facility] | | [address] | | | - LABORATORY | | [...] mL/min/1.73m2 | [facility] | | | [place] | RATE,ESTIMATED | | MEDICAL | | | | mL/min/1.26k4Xbml than | | CENTER - | | [...] [address] | [place] | [phone] | | [facility] | | [address] | | | - LABORATORY | | [...] [address] | [place] | [phone] | | [facility] | | [address] | | | - LABORATORY | | [...] [address] | [place] | [phone] | | [facility] | | [address] | | | - LABORATORY | | [...] [address] | [place] | [phone] | | [facility] | | [address] | | | - LABORATORY | | [...] (L) | 7 - 18 mg/dL | [facility] | | | | | | [facility] | | | | | | MEDICAL | | | | | | CENTER - | | | | | | LABORATORY | | + + + + + + | Creatinine | 0.83 | 0.60 - 1.30 | [facility] | | | | | mg/dL | [facility] | | | | | | MEDICAL | | | | | | CENTER - | | | | | | LABORATORY | | + + + + + + | eGFR if not | >60Comment: GLOMERULAR | >=60 | [facility] | | | | FILTRATION | mL/min/1.73m2 | [facility] | | | [place] | RATE,ESTIMATED | | MEDICAL | | | | mL/min/1.76v6Eapq than | | CENTER - | | [...] + | [facility] | [address] | [place] | [phone] | | [facility] | | [address] | | | - LABORATORY | | [...] [address] | [place] | [phone] | | [facility] | | [address] | | | - LABORATORY | | [...] [address] | [place] | [phone] | | [facility] | | [address] | | | - LABORATORY | | [...] + | [facility] | [address] | [place] | [phone] | | [facility] | | [address] | | | - LABORATORY | | [...] mL/min/1.73m2 | [facility] | | | [place] | RATE,ESTIMATED | | MEDICAL | | | | mL/min/1.23f9Ceng than | | CENTER - | | [...] ST. | [address] | [place] | [phone] | | [facility] | | [address] | | | - LABORATORY | | [...] [address] | [place] | [phone] | | [facility] | | [address] | | | - LABORATORY | | [...] [address] | [place] | [phone] | | [facility] | | [address] | | | - LABORATORY | | [...] | | | | mmol/L | [facility] | | | | | | MEDICAL [...] (L) | 7 - 18 mg/dL | [facility] | | | | | | [facility] | | | | | | MEDICAL | | | | | | CENTER - | | | | | | LABORATORY | | + + + + + + | Creatinine | 0.73 | 0.60 - 1.30 | [facility] | | | | | mg/dL | [facility] | | | | | | MEDICAL | | | | | | CENTER - | | | | | | LABORATORY | | + + + + + + | eGFR if not | >60Comment: GLOMERULAR | >=60 | [facility] | | | | FILTRATION | mL/min/1.73m2 | [facility] | | | [place] | RATE,ESTIMATED | | MEDICAL | | | | mL/min/1.65e3Oqds than | | CENTER - | | [...] + | [facility] | [address] | [place] | [phone] | | [facility] | | [address] | | | - LABORATORY | | [...] er AG, Qual | | | [facility] | | | | | | MEDICAL [...] ST. | [address] | [place] | [phone] | | [facility] | | [address] | | | - LABORATORY | | [...] + | [facility] | [address] | [place] | [phone] | | [facility] | | [address] | | | - LABORATORY | | [...] ST. | [address] | [place], [place] | [phone] | | [facility] | | [address] | | | - LABORATORY | | [...] [address] | [place] | [phone] | | [facility] | | [address] | | | - LABORATORY | | [...] [address] | [place] | [phone] | | [facility] | | [address] | | | - LABORATORY | | [...] | | | | | | | [id number] | | | | | | Source [...] | | | | | | [place] | | | | | | [facility], [address] | | | | | | [place] [address] | | | | + + + [...] [address] | [place] [address] | [phone] | + + + + + Cryptosporidium [...] + | [facility] | [address] | [place] | [phone] | | [facility] | | [address] | | | - LABORATORY | | [...] ST. | [address] | [place] | [phone] | | [facility] | | [address] | | | - LABORATORY | | [...] + | [facility] | [address] | [place] | [phone] | | [facility] | | [address] | | | - LABORATORY | | | | + + + + + EGD (01/31/2016 1:01 PM PDT) + + | Specimen | + + | | + + + + -+ | Narrative | Performed At | + + -+ | | [facility] | | GastroenterologyPatient Name: Yamilet RickettsEldarocednatasha Date: 01/31/2016 | [facility] | | 1:01 PMMRN: [id number] #: [id number] of : | | | 1950dmit Type: InpatientAge: 66Room: [facility] 01Gender: FemaleNote | | | Status: FinalizedAttending MD: Brett Wing, MDProcedure: | | | Upper GI endoscopyIndications: Esophageal dysphagia, | | | Weight lossProviders: Brett Wing MD, Leanna Chandler | | | SHO Domínguez, Suzette Trujillo, | | | School Speech Therapist, Tima Romo MD (Anesthesia Staff)Medicines: | | [...] physician, the nurse, the anesthesiologist and the turfgrass technician | | | in the endoscopy [...] PMScope Out: 1:13:55 PM | | | [facility], [address] [place] [address] | | | [address] | | |Recommendation: | | | - [...] |Scope Out: 1:13:55 PM | | | [facility], [address] [place] [address] | | | [address] | | + + -+ + +---------+ [...] 01/31/2016 | [facility] | | 1:01 PMMRN: [id number] #: [id number] of : | | | 1950dmit Type: InpatientAge: 66Room: [facility] 01Gender: FemaleNote | | | Status: FinalizedAttending MD: Brett Wing, [facility]cedure: | | | ColonoscopyIndications: Clinically significant diarrhea of | | | unexplained origin, Hematochezia, | | | Personal history of ulcerative colitisProviders: Brett St | | | MD [place], Leanna Domínguez RN, Suzette | | | Caitlyn Trujillo, School Speech Therapist, Tima Romo MD (Anesthesia | | | [...] the anesthesiologist and | | | the turfgrass technician in the endoscopy suite. Mental Status [...] PMScope Out: | | | 1:27:59 PM [facility], [address] [place] [address], | | | [place] [address] | | | - Continue present medications. [...] |Scope Out: 1:27:59 PM | | | [facility], [facility], [place], [place] | | | [address] | | + + -+ + +---------+ [...] [address] | [place] | [phone] | | [facility] | | [address] | | | - LABORATORY | | [...] [address] | [place] | [phone] | | [facility] | | [address] | | | - LABORATORY | | [...] | | | FILTRATION | mL/min/1.73m2 | [facility] | | | [place] | RATE,ESTIMATED | | MEDICAL | | | | mL/min/1.34f3Ofpf than | | CENTER - | | [...] | | | | | mg/dL | [facility] | | | | | | [...] [address] | [place] | [phone] | | [facility] | | [address] | | | - LABORATORY | | [...] | and slide preparation were performed by [employer], [address] | [address], [place] [address] (Garde Manger: Monty | | Paras Cruz M.D. CLIA#: [id number]). Professional interpretation was | | | performed by [employer], [facility] | | | Branch, [address] [place] [address] ([employer]arde M[employer]: | | | Monty Cruz M.D.; CLIA#: [id number]). Diagnostician: Monty | | | Renetta Cruz [...] Performed At | + + + | [facility] ECHOCARDIOGRAM REPORT | | | STUDY [...] | | Signed by: Angelita Khalil MD [facility] 01/30/2016 10:54 | | | Chief Digital Officer: Landon Masters, RDCS, RDMS, RVT | | [...] + | [facility] | [address] | [place] | [phone] | | [facility] | | [address] | | | - LABORATORY | | [...] [address] | [place] | [phone] | | [facility] | | [address] | | | - LABORATORY | | [...] [address] | [place] | [phone] | | [facility] | | [address] | | | - LABORATORY | | [...] [address] | [place] | [phone] | | [facility] | | [address] | | | - LABORATORY | | [...] + | [facility] | [address] | [place] | [phone] | | [facility] | | [address] | | | - LABORATORY | | [...] | | | FILTRATION | mL/min/1.73m2 | [facility] | | | [place] | RATE,ESTIMATED | | MEDICAL | | | | mL/min/1.29o3Iqry than | | CENTER - | | [...] | | | | | mg/dL | [facility] | | | | | | [...] [address] | [place] | [phone] | | [facility] | | [address] | | | - LABORATORY | | [...] | | | | | | [employer] | | | | | [...] + | [facility] | [address] | [place] | [phone] | | [facility] | | [address] | | | - LABORATORY | | [...] | Critical Result called | | [facility] | | | | to and read [...] + | [facility] | [address] | [place] | [phone] | | [facility] | | [address] | | | - LABORATORY | | [...] + | [facility] | [address] | [place], [place] | [phone] | | [facility] | | [address] | | | - LABORATORY | | [...] + | [facility] | [address] | [place], [place] | [phone] | | [facility] | | [address] | | | - LABORATORY | | [...] the uneventful intravenous administration of 65 mL Pfuujuhtr029 contrast, with | | timing of the [...] | | spine. Sclerotic foci in the F84lhuuhxots body favors bone islands. There is diffuse [...] | | | | | | [employer] | | | | | [...] [address] | [place] | [phone] | | [facility] | | [address] | | | - LABORATORY | | [...] [address] | [place] | [phone] | | [facility] [facility] | | [address] | | | - LABORATORY | | [...] [address] | [place] | [phone] | | [facility] | | [address] | | | - LABORATORY | | | | + + + + + documented in this encounter Visit Diagnoses + + | Diagnosis | + + | Ulcerative colitis without complications, unspecified location (HCC) | + + documented in this encounter
--- OUTSIDE RECORDS SUMMARY | ~2019-11-01 | XMS | Encounter Summary ---
Demographics + + + | Address | [address] | | | [place] [address] | + + + | Home Phone [...] | Author | [facility] | | | and [place]ana | + + + | Organization | [facility] | | [...] [place], [place] | | | | | [address] | | + + + + + Care Team Providers + +------+ + | Care Technical Project Coordinator Name | Role | Phone | + +------+ + | Maude Means MD | PCP | | + +------+ + Encounter Details +--------+ + + + + | Date | Type | Department | Care Team | Description | +--------+ + + + + | 02/17/ | Hospital | [facility] | Jojo Henry | 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 Nunez in [place]. My chart: Declined Pain assessment: Location: [facility] [...] mouth 2 times daily. 60 tablet 1 Qqgobib-Omibelzugonup-Akfjdkwx (EXCEDRIN PO) Take 250 mg by mouth [...] screening mammogram for high-risk patient Z12.31 V76.11 [facility] Tomosynthesis Screening Bilateral Yamilet has recovered well [...] will order this to be done at [facility]. - Follow-up with me in 6 months, sooner if needed. Orders Placed This Encounter Procedures [facility] Tomosynthesis Screening Bilateral Thank you for allowing me to participate in the care of Yamilet Hernandes. If you avery uld have any questions regarding this evaluation, please do not hesitate to contact me. Jojo Henry M.D. Radiation Oncologist Department of Radiation Oncology [facility] Office: [phone] documented in this encounter Plan of Treatment +--------+ + + + + | Date | Type | Specialty | Care Team | Description | +--------+ + + + + | 06/24/ | Appointment | Radiation Oncology | Jojo Henry | | | 2020 | | | MD Jessica [address] | | | | | | [place] | | | | | | [address] | | | | | | | [...]
--- OUTSIDE RECORDS SUMMARY | ~2019-11-01 | XMS | Encounter Summary ---
Demographics + + + | Address | [address] | | | [place] [address] | + + + | Home Phone | | + + + | Preferred Language | Unknown | + + + | Marital Status | | + + + | Faith Affiliation | 1001 | + + + | Race | Unknown | + + + | Ethnic Group | Unknown | + + + Author + + + | Author | [facility] | | | and [place]ana | + + + | Organization | [facility] | | | [...] [place], [place] | | | | | [address] | | + + + + + Care Team Providers + +------+ + | Care Engineered Wood Designer Name | Role | Phone | [...] Kenny ARNOLD | | | | | [phone] | [place] [address] | | +--------+ + + + + [...] | | | | | | [place], [place] | | | | | | [address] | | | | | | | [...] + documented in this encounter Results NM Power Node Injection wo Images (08/05/2018 7:45 AM [...]
--- OUTSIDE RECORDS SUMMARY | ~2019-11-01 | XMS | Encounter Summary ---
Demographics + + + | Address | [address] | | | [place] [address] | + + + | Home Phone [...] Author | [facility] | | | and Christianana | + + + | Organization | [facility] | [...] [place], [place] | | | | | [address] | | + + + + + Care Team Providers + +------+ + | Care Electrical Electronics Technician Name | Role | Phone | + +------+ + PCP | Unavailable | + +------+ + Encounter Details +--------+ + + + + | Date | Type | Department | Care Team | Description | +--------+ + + + + | 05/19/ | [facility] | [facility] | Brett Wing MD | | | 1997 | Encounter | MED CTR GENERIC OP | [address] | | | | | CONV DEPT [address] | [address] | | | | | [place], | [address] | | | | | [place] [address] | | | | | | [phone] | | | +--------+ + + + [...] [place] | | | | | | [address] | | | | | | | | +--------+ + + + + documented as of this encounter Visit Diagnoses Not on filedocumented in this encounter"
--- OUTSIDE RECORDS SUMMARY | ~2019-11-01 | XMS | Encounter Summary ---
Demographics + + + | Address | [address] | | | [place] [address] | + + + | Home Phone [...] | [facility] | | | and [place]ana | + + + | Organization | [facility] | | | and Christianana [...] | [place] | | | | | [address] | | + + + + + Care Team Providers + +------+ + | Care Help Desk Support Name | Role | Phone | + [...] | | | | low back | [address] | THERAPY [address] | | | | | pain without | [place], | [place] | | | | | sciatica | [place] [address] | [place], [place] | | | | | Postural | Phone: | [phone] | | | | | kyphosis of | [phone] | Phone: | | | | | lumbar | Fax: | [phone] | | | | | region | [phone] | Fax: | | | | | Procedures | | [phone] | | | | | HIM 04/09 [...] 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[address] | [address] | | | | 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..] m the original. Alfredo Frances MD [address] [facility], [address] [place] [address] FAX: PHYSICAL MEDICINE AND REHABILITATION H&P CHIEF [...] ion at the disc was admitted to [facility] for 5 days. Over the years [...] mouth 2 times daily. 60 tablet 1 Vadwgms-Lwsctvfwohilj-Kfcnaeba (EXCEDRIN PO) Take 250 mg by mouth [...] has no apparent deficits with short or mcfp memory. She has appropriate fund of knowledge Cranial nerves appear grossly intact. Sensory exam: intact sensation bilateral lower extremities with subjective decreased sensat ion over right L5 dermatome MOTOR EXAM: (5 IS NORMAL) * Indicates pain limited MUSCLE/ MOVEMENT: RIGHT LEFT Deltoids 5 5 Biceps 5 5 Triceps 5 5 Wrist Flexion 5 5 Wrist Extension 5 5 Finger Abduction 5 5 Wire Fence Erector Strength 5 5 Hip Flexion 5 5 [...] [place] | | | | | | [id number] | | | | | | | [...]
--- OUTSIDE RECORDS SUMMARY | ~2019-11-01 | XMS | Clinical Summary ---
Demographics + + + | Address | [address] | | | [place] [address] | + + + | Home Phone | | + + + | Preferred Language | Unknown | + + + | Marital Status | | + + + | Jehovah'S Witness Affiliation | 1001 | + + + | Race | Unknown | + + + | Ethnic Group | Unknown | + + + Author + + + | Author | [facility] | | | and [place] | + + + | Organization | [facility] | | | and [place] | [...] [place] | | | | | [address] | | + + + + + Care Team Providers + +------+ + | Care Manager Cost Name | Role | Phone | + [...] pN0, cM0, G3, ER: | | Positive, GA: Negative, HER2: Negative) - Signed by Jojo Lopez | | MD Carl on 09/20/2018 | + + | Overview: ACTIVE DIAGNOSIS: [id number], Stage IIA, | | ER-positive, Ki-67 positive, GA-negative, Her-2/savanna negative, | | Oncotype DX 29, RIGHT breast cancer, status post breast | | conserving therapy. 1. Presentation in May, with palpable | | Right breast mass.2. Bilateral screening mammography at . 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 ER 100%, GA negative at | | 0%, Ki-67 positive 39%, Her-2/savanna negative by FISH.5. Right | | partial mastectomy with sentinel lymph node biopsy August 05, | | 2018 (JANE Lucio). Specimen # [id number] (Ana Ferreira): | | Invasive carcinoma with [...] both parents.7. Presentation | | at the [facility] Conference, | | September 02, 2018, with recommendations for Oncotype DX testing | | of the partial mastectomy specimen and germline testing for | | comprehensive HBOC syndromes.8. Oncotype DX score 29, | | Intermediate Risk, revealed on September 19, 2018.9. HBOC testing | | (Celletrask) negative, revealed on September 23, 2018; no [...] | | through October 31, 2018 at [facility] | | [place], [place], [place].11. Osteoporosis identified at baseline | | [...] Yamilet in three months at | | [facility] in [place], [place] to review her | | tolerance [...] | improved- Discussed with Dr Hagan at [facility], who is covering | | Dr. Reddy's [...] [place] | | | | | | [address] | | | | | | | [...] +--------+ +---------+--------+ | MEDICARE | MEDICA | [id number] | 01/20/20 | [phone] | | Medica | | | RE | | 16-Pre | 5 | | re | | | PART A | | sent | | | | | | AND B | | | | | | + +--------+ +--------+ +---------+--------+ | AARP | AARP | [id number] | 01/20/20 | [phone] | | Indemn [...] [place] | | | 2 (Home) | [address] | + +--------+ +--------+ + + Advance Directives + + + + + | Type | Date Recorded | Patient | Explanation | | | | [employer]obile [employer] Travel Counselor | | + + + + + | Power of | | | | | Chrome Plater | | | | + + + [...]
--- OUTSIDE RECORDS SUMMARY | ~2019-11-01 | XMS | Encounter Summary ---
Demographics + + + | Address | [address] | | | [place] [address] | + + + | Home Phone | | + + + | Preferred Language | Unknown | + + + | Marital Status | | + + + | Orthodox Affiliation | 1001 | + + + | Race | Unknown | + + + | Ethnic Group | Unknown | + + + Author + + + | Author | [facility] | | | and [place] | + + + | Organization | [facility] | | | and Christianana [...] | [place] | | | | | [address] | | + + + + + Care Team Providers + +------+ + | Care Search Engine Optimization Manager Name | Role | Phone | [...] ulcerative | [address] | [address], | | | | | colitis with | [address], [address] | [address] | | | | | | [address] [place] | [place], | | | | | complication | [place], [place] | [place] [address] | | | | | (HCC) | [address] | Phone: | | | | | Procedures | Phone: | [phone] | | | | | CT | [phone] | Fax: | | | | | SIGMOIDOSCOP | Fax: | [phone] | | | | | Y FLX DX | [phone] | | | | | | W/COLLJ SPEC | | | | | | | BR/WA IF | | | | | | | PFRMD CT | | | | | | [...] + + | 02/23/ | Telephone | [facility] | Brett Wing MD | Appointment | | 2015 | | GASTROENTEROLOGY | [address] | | | | | [address] | [address] [place], [place] | | | | | [address] [place], [place] | [address] | | | | | [address] | | | | | | [phone] | | | +--------+ + + + [...] [place] | | | | | | [address] | | | | | | | [...]
--- OUTSIDE RECORDS SUMMARY | ~2019-11-01 | XMS | Encounter Summary ---
Demographics + + + | Address | [address] | | | [place] [address] | + + + | Home Phone | | + + + | Preferred Language | Unknown | + + + | Marital Status | | + + + | Rastafarian Affiliation | 1001 | + + + | Race | Unknown | + + + | Ethnic Group | Unknown | + + + Author + + + | Author | [facility] | | | and [place]ana | + + + | Organization | [facility] | | [...] [place], [place] | | | | | [address] | | + + + + + Care Team Providers + +------+ + | Care Chemical Research Worker Name | Role | Phone | + +------+ + | Maude Means MD | PCP | | + +------+ + Encounter Details +--------+ + + + + | Date | Type | Department | Care Team | Description | +--------+ + + + + | 01/15/ | Orders Only | [facility] | Conversion | | | 2015 | | INFECTIOUS DISEASE | Transaction, | | | | | [address] | Provider Unknown | | | | | [place] | [phone] | | | | | [address] | | | | | | [phone] | | | +--------+ + + + [...] [place] | | | | | | [address] | | | | | | | [...]
--- OUTSIDE RECORDS SUMMARY | ~2019-11-01 | XMS | Encounter Summary ---
Demographics + + + | Address | [address] | | | [place] [address] | + + + | Home Phone [...] + | Author | [facility] | | | and Christianana | + + + | Organization | [facility] | | | and [...] [place], [place] | | | | | [address] | | + + + + + Care Team Providers + +------+ + | Care Security Systems Sales Representative Name | Role | Phone | + [...] | unspecified | [address] | | | | | spinal | [address] | [place], | | | | | region | [address] | [place] [address] | | | | | | [place], [place] | Phone: | | | | | | [address] | [phone] | | | | | | Phone: | Fax: | | | | | | [phone] | [phone] | | | | | | Fax: | | | | | | | [phone] | | +--------+--------+ + + + + [...] MS | | | | | | ([facility]) | [id number] | | | | | | Discitis, | [place], [place] | | | | | | unspecified | [address] | | | | | | spinal | Phone: | | | | | | region | [phone] | | | | | | Hyponatremia | Fax: | | | | | | Dysphagia, | [phone] | | | | | | unspecified [...] | | | | | | | ([facility]) | | | +--------+ + + + [...] | | | | | | | ([facility]) | | | | | | | [...] | | | | | | | ([facility]) | | | | | | | [...] + + | 01/28/ | Hospital | [facility] | Orville Khalil | Atrial fibrillation | | 2016 - | Encounter | [facility] | MD Ken [address] | with RVR ([facility]) | | | | [address] [place] | [address] [place] | (Primary Dx); | | 02/03/ | | [place] [address] | [place] [address] | Discitis, | | 2016 | | [phone] | [phone] | unspecified spinal | | | | | | region; | | | | | Vasquez, Rico H, | Hyponatremia; | | | | | MD [address] | Ulcerative colitis | | | | | [place], [place] | without | | | | | [address] | complications, | | | | | [phone] | unspecified | | | | | [...] might be different f rom the original. [facility] SUMMARY Pt. Name/Age/: Yamilet Romo [...] Medications cefTRIAXone 2 g/100 mL Soln aka: [facility] COURSE: Please refer to the H&P for [...] back pain, and was admi tted to [facility] on 01/03 and diagnosed with discitis, and [...] pain. In the emergency department at [facility], she was found to have atrial [...] - 01/29: Discussed with Dr Hagan at [facility], who is covering Dr. Reddy's patients, recommen ded discussing leukopenia/thrombocytopenia with him today, continued ceftriaxone - 01/30: Discussed with Dr. Reddy at [facility], who recommended switching over to once daily Lev aquin IV to finish complete course of therapy with 02/14 being last day of therapy. Patient w ill need to f/u with Dr. Reddy's office in 1 week after discharge from the hospital. Today wa s 1st dose of Levaquin IV. Will need to agency legal counsel patient about risk of tendonitis, tendon rup [...] Schatzki's ring that was dilated with 48 [place] Vega dilator. There was gastroparesis minor antral [...] follow up Contact information: [address] [facility] [place] [address] Follow up with Brett Wing MD. Schedule an appointment as soon as possible for a visit in 2 weeks. Specialty: Gastroenterology Why: For follow up of your Ulcerative colitis Contact information: [address], [address] [place] [address] [phone] Follow up with Jorge Reddy DO. Schedule an appointment as soon as possible for a visit i n 1 week. Specialty: Internal Medicine Why: For follow up on your history and treatment of Diskitis Contact information: [address] [facility] [phone] Condition: Patient being discharged with condition improved. Diet: Dental soft, fiber restricted, vegetarian, please make sure to drink plenty of liquid s to keep good oral fluid hydration up to 2 L of fluids per day. Greater than 30 minutes were spent on discharge and coordination of post-hospital care. Electronically signed by: Richardson Cramer DO, 02/04/2016 16:11 [facility] Portions of this chart may have been created with Yurpy voice recognition software. Occasi onal wrong-word or [...] that are mashed or put through a internet site designer. In a ddition, you may need to [...] Also, other treatments will likely be needed. [phone] [employer]. [address] [place] [address]. All righ ts reserved. This information is [...] or as directed by your healthcare provider [phone] [employer]. [address] [place] [address], [place] [address]. All mclaren lapeer region ts reserved. This information is not intended [...] tea, cola, and other beverages with caffeine pb8vpsh pe r day. Talkwith your doctor about whether you should eliminate caffeine. Avoid mmit-yvk-qhjlfcy medicines that have caffeine in them. Let your doctor know what medicines you take, including prescription and pysl-cxz-lbweyv r medicines, as well as any supplements. [...] your heartbeat, or an unusually fast heartbeat [phone] [employer]. [address] [place], [place] [address]. All righ ts reserved. This information is [...] fibrillation that are new or getting worse [employer]. [address] [place] [address]. All righ ts reserved. This information is [...] spasms, cramping, or twitching Seizures Gait disturbances [employer]. [address] [place] [address]. All righ ts reserved. This information is [...] Yourhealth care providermay have you see a rigger third to come up with the best food choices for you. A rigger third can help ensure that you eat foods marichuy t are safe while getting proper nourishment. Foods that are often safe No two people respond the same to all foods. But these choices are often safe to eat during a flare-up: Applesauce Roslyn toast Flavored gelatin Vanilla pudding Custard White rice Plain pasta Canned peaches or pears Baked potatoes Tuna packed in water Mashedpotatoes Skinless chicken Instant oatmeal 3157-[address] [employer] [place] [address]. All righ ts reserved. 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 AttachmentsThe following attachments cannot be sent through Care Everywhere.ESOPHAGEAL DILA TION (MALIAN)DYSPHAGIA, TREATING (MALIAN)DYSPHAGIA, UNDERSTANDING (MALIAN)LEVOFLOXACIN OR AL TABLET (MALIAN)documented in this encounter Medications at Time of [...] discussion on Saturday Dr. Wells of the [facility] is store operations associate over the weekend and will not see the patient unless requested Tim House RN - 02/03/2016 11:40 AM PDTMetopro lol total 200 mg po given. Ambulated around the hallway using walker. HR 103-110's. A.Fib.El ectronically signed by Tim Ruiz RN at 02/03/2016 11:41 AM Richardson Brand DO - 02/03/2016 9:29 AM PDT [facility] PRO[facility]ESS NOTE Patient: Yamilet Hernandes : 1950: Age: 66 y.o. MedRec: [id number] PCP: Puneet Donovan Admission date: 01/29/2016 Hospital [...] CKTOTAL No results for input(s): PHART, PO2ART, AUY8PBF, EVE0PPE, BEART, B1SWFIRQ in the last 168 h ours. No results for input(s): SPECSOURCE, PHPOCB, HCO3, TCO2, BEART, BE, XKLL8CVR in the last 16 8 hours. Invalid input(s): LXSMF4DV, JMYW4YW ECHOCARDIOGRAM REPORT STUDY DATE: 01/30/2016 CLINICAL HISTORY/DIAGNOSIS: [...] Schatzki's ring that was dilated with 48 Citizen [place] Vega dilator. There was gastroparesis minor antral [...] up today. No acute events overnight. On urban designer yesterday patient has remained well controlled in [...] - 01/29: Discussed with Dr Hagan at [facility], who is covering Dr. Reddy's patients, recommen ded discussing leukopenia/thrombocytopenia with him today, continued ceftriaxone - 01/30: Discussed with Dr. Reddy at [facility], who recommended switching over to once daily Lev aquin IV to finish complete course of therapy with 02/14 being last day of therapy. Patient w ill need to f/u with Dr. Reddy's office in 1 week after discharge from the hospital. Today wa s 1st dose of Levaquin IV. Will need to agency legal counsel patient about risk of tendonitis, tendon rup [...] 30 minutes. Richardson Cramer DO 02/03/2016 9:29 [facility] Portions of this chart may have been created with Yurpy voice recognition software. Occasi onal wrong-word or sound-alike substitutions may have occurred due to the inherent jack itations of voice recognition software. Please read the chart carefully and recognize, using context, where these substitutions have occurred ela, Richardson March DO - 02/02/2016 11:46 AM PDT [facility] PRO[facility]ESS [facility] Patient: Yamilet Hernandes : 1950: Age: 66 y.o. MedRec: [id number] PCP: Puneet Donovan Admission date: 01/29/2016 Hospital [...] CKTOTAL No results for input(s): PHART, PO2ART, EYY7SKK, SWX6CEW, BEART, U9ZBGFUN in the last 168 h ours. No results for input(s): SPECSOURCE, PHPOCB, HCO3, TCO2, BEART, BE, CRKQ2DBF in the last 16 8 hours. Invalid input(s): QHWFF9RN, IDVB1BV ECHOCARDIOGRAM REPORT STUDY DATE: 01/30/2016 CLINICAL HISTORY/DIAGNOSIS: [...] Schatzki's ring that was dilated with 48 [place] Vega dilator. There was gastroparesis minor antral [...] up today. No acute events overnight. On urban designer since yesterday patient has remained well controlled [...] - 01/29: Discussed with Dr Hagan at [facility], who is covering Dr. Reddy's patients, recommen ded discussing leukopenia/thrombocytopenia with him today, continued ceftriaxone - 01/30: Discussed with Dr. Reddy at [facility], who recommended switching over to once daily Lev aquin IV to finish complete course of therapy with 02/14 being last day of therapy. Patient w ill need to f/u with Dr. Reddy's office in 1 week after discharge from the hospital. Today wa s 1st dose of Levaquin IV. Will need to agency legal counsel patient about risk of tendonitis, tendon rup [...] 30 minutes. Richardson Cramer DO 02/02/2016 11:46 [facility] Portions of this chart may have been created with Yurpy voice recognition software. Occasi onal wrong-word or [...] Richardson Brand DO - 9:40 AM PDT [facility] Patient: Yamilet Hernandes : 1950: Age: 66 y.o. MedRec: [id number] PCP: Puneet Donovan Admission date: 01/29/2016 Hospital [...] CKTOTAL No results for input(s): PHART, PO2ART, LME4EWO, YQH7VQQ, BEART, O2HCZFTF in the last 168 h ours. No results for input(s): SPECSOURCE, PHPOCB, HCO3, TCO2, BEART, BE, USWB4RFM in the last 16 8 hours. Invalid input(s): LZZSQ0KC, FRZH8QB ECHOCARDIOGRAM REPORT STUDY DATE: 01/30/2016 CLINICAL HISTORY/DIAGNOSIS: [...] Schatzki's ring that was dilated with 48 [place] Vega dilator. There was gastroparesis minor antral [...] up today. No acute events overnight. On urban designer since this morning around 7 AM patient's [...] - 01/29: Discussed with Dr Hagan at [facility], who is covering Dr. Reddy's patients, recommen ded discussing leukopenia/thrombocytopenia with him today, continued ceftriaxone - 01/30: Discussed with Dr. Reddy at [facility], who recommended switching over to once daily Lev aquin IV to finish complete course of therapy with 02/14 being last day of therapy. Patient w ill need to f/u with Dr. Reddy's office in 1 week after discharge from the hospital. Today wa s 1st dose of Levaquin IV. Will need to agency legal counsel patient about risk of tendonitis, tendon rup [...] 30 minutes. Richardson Cramer DO 02/01/2016 9:40 [facility] Portions of this chart may have been created with Yurpy voice recognition software. Occasi onal wrong-word or [...] DO - 0 01/31/2016 2:42 PM PDT [facility] PRO[facility]ESS [facility] Patient: Yamilet Hernandes : 1950: Age: 66 y.o. MedRec: [id number] PCP: Puneet Donovan Admission date: 01/29/2016 Hospital [...] CKTOTAL No results for input(s): PHART, PO2ART, MMH8NFB, AIU7ERW, BEART, B5VAXXNO in the last 168 h ours. No results for input(s): SPECSOURCE, PHPOCB, HCO3, TCO2, BEART, BE, FLHG5YDA in the last 16 8 hours. Invalid input(s): GUHPT7YU, OWDJ9DP ECHOCARDIOGRAM REPORT STUDY DATE: 01/30/2016 CLINICAL HISTORY/DIAGNOSIS: [...] Schatzki's ring that was dilated with 48 [place] V[place] dilator. There was gastroparesis minor antral [...] colonoscopy. No acute e vents overnight. On urban designer patient remains in low 100s to 110s, [...] - 01/29: Discussed with Dr Hagan at [facility], who is covering Dr. Reddy's patients, recommen ded discussing leukopenia/thrombocytopenia with him today, continued ceftriaxone - 01/30: Discussed with Dr. Reddy at [facility], who recommended switching over to once daily Lev aquin IV to finish complete course of therapy with 02/14 being last day of therapy. Patient w ill need to f/u with Dr. Reddy's office in 1 week after discharge from the hospital. Today wa s 1st dose of Levaquin IV. Will need to agency legal counsel patient about risk of tendonitis, tendon rup [...] 30 minutes. Richardson Cramer DO 01/31/2016 14:42 [facility] Portions of this chart may have been created with Yurpy voice recognition software. Occasi onal wrong-word or [...] Lynch MD - 01/30/2016 8:58 AM PDT [facility] Hospitalist Progress Note Yamilet Hernandes is a 66 y.o. female SUBJECTIVE: C/o chronic cough, worse this morning. C/o some difficulty swallowing both foods and liq uids at times. Denies chest pain. No acute shortness of breath. Had BM this morning, adnyell es any blood in stool. VITALS: Temp: [...] This is a preliminary report provided by [facility] JORDYN Costa. A final report is available at [facility]. CT ANGIOGR AM CHEST (PULMONARY) CLINICAL INFORMATION: [...] improved - Discussed with Dr Hagan at [facility], who is covering Dr. Reddy's patients, recommended [...] as outlined above. Rico Vasquez 01/30/2016 9:12 [facility] Portions of this chart may have been created with Yurpy voice recognition software. Occasi onal wrong-word or [...] was made to ensure accuracy, however, inadvertent credit risk analytics manager errors may be present . Electronically signed [...] Lopez | | | | | | [place], [place] | | | | | | [...] | | | | | | RVR ([facility]) Discitis, | | | | | | [...] + + | AMB REFERRAL TO [facility] | Outpatient | Routin | [...] [address] | [place] | [phone] | | [facility] | | [address] | | | - LABORATORY | | [...] | 0.91 | 0.60 - 1.30 | [facility] | | | | | mg/dL [...] mL/min/1.73m2 | [facility] | | | [facility] | RATE,ESTIMATED | | MEDICAL | | | | mL/min/1.93w7Ucqx than | | CENTER - | | [...] [address] | [place] | [phone] | | [facility] | | [address] | | | - LABORATORY | | [...] + | [facility] | [address] | [place] | [phone] | | [facility] | | [address] | | | - LABORATORY | | [...] [address] | [place] | [phone] | | [facility] | | [address] | | | - LABORATORY | | [...] + | [facility] | [address] | [place] | [phone] | | [facility] | | [address] | | | - LABORATORY | | [...] mL/min/1.73m2 | [facility] | | | [facility]IAN | RATE,ESTIMATED | | MEDICAL | | | | mL/min/1.61v7Spvm than | | CENTER - | | [...] [address] | [place] | [phone] | | [facility] | | [address] | | | - LABORATORY | | [...] + | [facility] | [address] | [place] | [phone] | | [facility] | | [address] | | | - LABORATORY | | [...] [address] | [place] | [phone] | | [facility] | | [address] | | | - LABORATORY | | [...] ST. | [address] | [place], [place] | [phone] | | [facility] | | [address] | | | - LABORATORY | | [...] | 0.80 | 0.60 - 1.30 | [facility] | | | | | mg/dL | [facility] | | | | | | MEDICAL | | | | | | CENTER - | | | | | | LABORATORY | | + + + + + + | eGFR if not | >60Comment: GLOMERULAR | >=60 | [facility] | | | | FILTRATION | mL/min/1.73m2 | [facility] | | | PER[facility]IAN | RATE,ESTIMATED | | MEDICAL | | | | mL/min/1.63z4Eekp than | | CENTER - | | [...] + | [facility] | [address] | [place] | [phone] | | [facility] | | [address] | | | - LABORATORY | | [...] [address] | [place] | [phone] | | [facility] | | [address] | | | - LABORATORY | | [...] + | [facility] | [address] | [place] | [phone] | | [facility] | | [address] | | | - LABORATORY | | [...] | | | | | | [facility] | | | | | | MEDICAL [...] | mL/min/1.73m2 | [facility] | | | PER[place]IAN | RATE,ESTIMATED | | MEDICAL | | | | mL/min/1.98y4Kahv than | | CENTER - | | [...] ST. | [address] | [place] | [phone] | | [facility] | | [address] | | | - LABORATORY | | [...] + | [facility] | [address] | [place] | [phone] | | [facility] | | [address] | | | - LABORATORY | | [...] ST. | [address] | [place] | [phone] | | [facility] | | [address] | | | - LABORATORY | | [...] [address] | [place] | [phone] | | [facility] | | [address] | | | - LABORATORY | | [...] | | , Qual | | | [facility] | | | | [...] [address] | [place] | [phone] | | [facility] | | [address] | | | - LABORATORY | | [...] + | [facility] | [address] | [place] | [phone] | | [facility] | | [address] | | | - LABORATORY | | [...] | | | | | | | [id number] | | | | | | Source [...] Performed: | | | | | | [facility] | | | | | | [facility], [address] | | | | | | [address] [place] [address] | | | | + + + [...] [address] | [place] [address] | [phone] | + + + + + Cryptosporidium [...] + | [facility] [facility] | [address] | [place] | [phone] | | [facility] | | [address] | | | - LABORATORY | | [...] [address] | [place] | [phone] | | [facility] | | [address] | | | - LABORATORY | | [...] [address] | [place] | [phone] | | [facility] | | [address] | | | - LABORATORY | | | | + + + + + EGD (01/31/2016 1:01 PM PDT) + + | Specimen | + + | | + + + + -+ | Narrative | Performed At | + + -+ | | [facility] | | GastroenterologyPatient Name: Yamilet RickettsyProcedure Date: 01/31/2016 | [facility] | | 1:01 PMMRN: [id number] #: [id number] of : | | | 1Admit Type: InpatientAge: 66Room: [facility] 01Gender: FemaleNote | | | Status: FinalizedAttending MD: Brett Wing [facility]: | | | Upper GI endoscopyIndications: Esophageal dysphagia, | | | Weight lossProviders: Brett Wing MD, Leanna Chandler | | | SHO Domínguez, Suzette Trujillo, | | | Histotechnologist, Tima Romo MD (Anesthesia Staff)Medicines: | | [...] physician, the nurse, the anesthesiologist and the educational technician | | | in the endoscopy [...] was withdrawn. Dilation was performed with a Evga | | | dilator with mild resistance [...] PMScope Out: 1:13:55 PM | | | [facility], [address] [place], [place] | | | [address] | | |Recommendation: | | | - [...] |Scope Out: 1:13:55 PM | | | [facility], [address] [facility], [place], [place] | | | [address] | | + + -+ + +---------+ [...] 01/31/2016 | [facility] | | 1:01 PMMRN: [id number] #: [id number] of : | | | 1950dmit Type: InpatientAge: Room: [facility] 01Gender: FemaleNote | | | Status: FinalizedAttending MD: Brett Wing, [facility]cedure: | | | ColonoscopyIndications: Clinically significant diarrhea of | | | unexplained origin, Hematochezia, | | | Personal history of ulcerative colitisProviders: Brett St | | | MD [place], Leanna Domínguez RN, Suzette | | | Caitlyn Trujillo, Histotechnologist, Tima Romo MD (Anesthesia | | | [...] the anesthesiologist and | | | the educational technician in the endoscopy suite. Mental Status [...] PMScope Out: | | | 1:27:59 PM [facility], [address] [facility], | | | [place] [address] | | | - Continue present medications. [...] |Scope Out: 1:27:59 PM | | | [facility], [address] [facility], [place] | | | [address] | | + + -+ + +---------+ [...] + | [address] [facility] | [address] | [place] | [phone] | | [facility] | | [address] | | | - LABORATORY | | [...] + | [facility] | [address] | [place], [place] | [phone] | | [facility] | | [address] | | | - LABORATORY | | [...] mL/min/1.73m2 | [facility] | | | [facility] | RATE,ESTIMATED | | MEDICAL | | | | mL/min/1.16t9Tqyo than | | CENTER - | | [...] ST. | [address] | [place], [place] | [phone] | | [facility] | | [address] | | | - LABORATORY | | | | + + + + + Surgical Pathology Exam (01/31/2016 12:00 AM PDT) + + | Specimen | + + | | + + + + + | Narrative | Performed At | + + + | SPECIMEN(S): A DESCENDING COLON BIOPSY SPECIMEN SOURCE: Darryl Crain [facility] PATH[facility] | | DESCENDING COLON BIOPSY CLINICAL [...] | | | bowel disease (ulcerative colitis). JVR:[place]:C2NR GROSS | | | DESCRIPTION: The specimen is labeled "Yamilet Hernandes" and | | | designated "descending colon bx" on the requisition. Received in | | | formalin are seven pink-dukes colored tissue fragments, 0.15-0.6 cm, all | | | into (A1). yt:JVR:[place] PERFORMING LABORATORY: Tissue processing | | | and slide preparation were performed by [facility], [facility] [address] | | | [facility], [address], [place] [address] (Security Systems Administrator: Monty | | | Rosy Cruz CLIA#: [id number]). Professional interpretation was | | | performed by [facility], [facility] | | | Branch, [address], [place] [address] (Security Systems Administrator: | | | Monty Cruz M.D.; CLIA#: [id number]). Diagnostician: Monty | | | Renetta Cruz [...] Performed At | + + + | [facility] ECHOCARDIOGRAM REPORT | | | STUDY [...] | | Signed by: Angelita Khalil MD [facility] 01/30/2016 10:54 | | | Bin Operator: Landon Masters, RDCS, RDMS, RVT | | [...] [address] | [place] | [phone] | | [facility] | | [address] | | | - LABORATORY | | [...] + | [facility] | [address] | [place], [place] | [phone] | | [facility] | | [address] | | | - LABORATORY | | [...] + | [facility] | [address] | [place] | [phone] | | [facility] | | [address] | | | - LABORATORY | | [...] ST. | [address] | [place], [place] | [phone] | | [facility] | | [address] | | | - LABORATORY | | [...] [address] | [place] | [phone] | | [facility] | | [address] | | | - LABORATORY | | [...] 8 | 7 - 18 mg/dL | [facility] | | | | | | [facility] | | | | | | MEDICAL | | | | | | CENTER - | | | | | | LABORATORY | | + + + + + + | Creatinine | 0.68 | 0.60 - 1.30 | [facility] | | | | | mg/dL | [facility] | | | | | | MEDICAL | | | | | | CENTER - | | | | | | LABORATORY | | + + + + + + | eGFR if not | >60Comment: GLOMERULAR | >=60 | [facility] | | | | FILTRATION | mL/min/1.73m2 | [facility] | | | [place]IAN | RATE,ESTIMATED | | MEDICAL | | | | mL/min/1.31a9Jpep than | | CENTER - | | [...] [address] | [place] | [phone] | | [facility] | | [address] | | | - LABORATORY | | [...] | | | | | | [employer] | | | | | [...] ST. | [address] | [place], [place] | [phone] | | [facility] | | [address] | | | - LABORATORY | | [...] ST. | [address] | [place], [place] | [phone] | | [facility] | | [address] | | | - LABORATORY | | [...] + | [facility] | [address] | [place] | [phone] | | [facility] | | [address] | | | - LABORATORY | | [...] [address] | [place] | [phone] | | [facility] | | [address] | | | - LABORATORY | | [...] the uneventful intravenous administration of 65 mL [id number] contrast, with | | timing of the [...] | | spine. Sclerotic foci in the C38repjfvykm body favors bone islands. There is diffuse [...] | | | | | | [employer] | | | | | [...] [address] | [place] | [phone] | | [facility] | | [address] | | | - LABORATORY | | | | + + + + + D-Dimer (01/29/2016 1:35 PM PDT) + + + + + + | Component | Value | Ref Range | Performed | Pathologist | | | | | At | Signature | + + + + + + | D-Dimer | 3.27 (H)Comment: This | <=0.50 ug/ml | [facility] | | | Quantitativ | quantitative [...] [address] | [place] | [phone] | | [facility] | | [address] | | | - LABORATORY | | [...] + | [address] | [address] | [place] | [phone] | | [facility] | | [address] | | | - LABORATORY | | | | + + + + + documented in this encounter Visit Diagnoses + + | Diagnosis | + + | Atrial fibrillation with RVR ([facility]) - Primary Atrial fibrillation | + + [...] PDT | | | | | ONCE, [place] 01/29/16 at 1400, For 1 | | [...] PDT | | | | | ONCE, [facility] 02/01/16 at 2015, For 1 | | [...] | | | | mg, Oral, ONCE, [facility] 02/02/16 at | | PM PDT [...]
--- OUTSIDE RECORDS SUMMARY | ~2019-11-01 | XMS | Encounter Summary ---
Demographics + + + | Address | [address] | | | [place] [address] | + + + | Home Phone | | + + + | Preferred Language | Unknown | + + + | Marital Status | | + + + | Quaker Affiliation | 1001 | + + + | Race | Unknown | + + + | Ethnic Group | Unknown | + + + Author + + + | Author | [facility] | | | and [place] | + + + | Organization | [facility] | [...] [place], [place] | | | | | [address] | | + + + + + Care Team Providers + +------+ + | Care Conference Producer Name | Role | Phone | + +------+ + | Maude Means MD | PCP | | + +------+ + Encounter Details +--------+ + + + + | Date | Type | Department | Care Team | Description | +--------+ + + + + | 11/06/ | Documentati | [facility] | Jojo Henry | | | 2019 | on | MED CTR RADIATION | MD Jessica [address] | | | | | [facility]OGY CLINIC [address] | [facility] | | | | | [address] [place] | [address] | | | | | [place] [address] | | | | | | [phone] | | | +--------+ + + + [...] Progress Notes Jojo Henry MD - 11/06/2018 2:46 PM PST Radiation Treatment Summary Diagnosis: Breast cancer (HCC) 07/28/2018 Initial Diagnosis Presented with a palpable right breast nodule, upper outer quadrant near the areola. Bilateral screening mammogram on 06/18/18 identified a focal nodular density in the upper outer right breast measuring approximately 2 cm. Diagnostic right breast mammogram and ultrasound on 07/15/18 with architectural distortio n and nodularity at the anterior right upper outer quadrant. Ultrasound with 11:00 position , 2.1 x 1.9 x 2.5 cm mass. Ultrasound-guided core needle biopsy on 07/28/18. Pathology: Invasive carcinoma with signet ring features and focal mucinous features. Gr opal 3, no LV SI, ER 100%, NE 0%, Ki-67 39%, HER-2/savanna nonamplified. 08/05/2018 Surgery Surgeon: Dr. Lucio Surgery indicated: Lumpectomy and sentinel lymph node biopsy Final pathology details: Invasive carcinoma, 2.3 cm, segment reading and focal mucinous fea tures, grade 3, close margin (0.1 mm), no LVSI, 0/1 sentinel lymph node. Pathologic stage IIA, pT2 pN0 (sn) Now completing adjuvant whole breast radiation with lumpectomy cavity boost Treatment Dates: Yaimlet was treated in our clinic between the dates of 10/06/2018 - 11/06/2018. Intent: Curative Prescription: R breast (Plan ID - R Breast_FiF) - Rx Dose 4,005cGy (Status - Treatment Approved) - 5 R breast (Plan ID - R breast bst) - Rx Dose 1,000cGy (Status - Treatment Approved) - Treatment Technique: 3-D Akoqv-Qe-Letkn Treatment Summary: Course: R breast Treatment Site Energy Dose/Fx (cGy) #Fx Dose Correction (cGy) Total Dose (cGy) Start Date E nd Date Elapsed Days R Breast_FiF 10X 267 0 4,005 10/06/2018 10/30/2018 24 R breast bst 6X 200 0 1,000 10/31/2018 11/06/2018 6 Total: 5,005 10/06/2018 11/06/2018 31 Assessment: Yamilet Hernandes completed the planned course of course of external beam radiation t herapy uneventfully and without any unexpected complications. Disposition: 1. Follow-up with Dr. Nunez in [place] in the next 1 2 months for adjuvant endoc rine therapy. 2. Follow-up with me in 3 months, sooner if needed. Coordination of care will be arranged between providers for future visits. 3. Resume annual mammography. Yamilet Hernandes was encouraged to call our clinic with any further questions or co ncerns. Thank you for allowing me to participate in her care. If you should have any questi ons regarding this treatment summary, please do not hesitate to contact me. Jojo Henry MD Radiation Oncologist Department of Radiation Oncology [facility] This note was transcribed using [employer] speech recognition software. As a result, there may be unintended for medical and/or spelling errors. Every attempt is made to correct dictati on. If there are any questions or errors please contact our office. CC: Patient Care Team: Maude Means MD as PCP - General (Family Medicine) Yury Hand PA-C as Physician Derrickman Helper (Physical Medicine and Rehabilitation) Jojo Henry MD as Physician (Radiation Oncology) Yosi Nunez MD as Consulting Physician (Medical Oncology) Orville Lucio (Surgery) documented in this encounter Plan of Treatment [...] [place] | | | | | | [id number] | | | | | | | | +--------+ + + + + documented as of this encounter Visit Diagnoses + + | Diagnosis | + + | Malignant neoplasm of upper-outer quadrant of right breast in female, estrogen | | receptor positive (HCC) - Primary | + + documented in this encounter"
--- OUTSIDE RECORDS SUMMARY | ~2019-11-01 | XMS | Encounter Summary ---
Demographics + + + | Address | [address] | | | [place] [address] | + + + | Home Phone [...] | Author | [facility] | | | and [place] | + + + | Organization | [facility] | | | and [...] | [place] | | | | | [address] | | + + + + + Care Team Providers + +------+ + | Care Phlebotomy Program Coordinator Name | Role | Phone | [...] + + | 10/30/ | Hospital | [facility] | Jojo Henry | Malignant neoplasm | | 2019 | Encounter | MED CTR RADIATION | MD Jessica [address] | of upper-outer | | | | ONCOLOGY CLINIC [address] | [place], [place] | quadrant of right | | | | [facility] | [address] | breast in female, | | | | [place] [address] | | estrogen receptor | | | | [phone] | | positive (HCC) | | | [...] mouth 2 times daily. 60 tablet 1 Ytzwnir-Uoihmhtoienzp-Nkehnpzw (EXCEDRIN PO) Take 250 mg by mouth [...] [place] | | | | | | [address] | | | | | | | | +--------+ + + + + documented as of this encounter Visit Diagnoses + + | Diagnosis | + + | Malignant neoplasm of upper-outer quadrant of right breast in female, estrogen | | receptor positive (HCC) - Primary | + + documented in this encounter"
--- OUTSIDE RECORDS SUMMARY | ~2019-11-01 | XMS | Encounter Summary ---
Demographics + + + | Address | [address] | | | [place] [address] | + + + | Home Phone [...] Author | [facility] | | | and [place] | + + + | Organization | [facility] | | | and [...] [place], [place] | | | | | [address] | | + + + + + Care Team Providers + +------+ + | Care Plumbing Service Technician Name | Role | Phone | [...] Kenny [place] | | | | | [phone] | [place] [address] | | +--------+ + + + + [...] | | | | | | [place], [place] | | | | | | [address] | | | | | | | [...]
--- OUTSIDE RECORDS SUMMARY | ~2019-11-01 | XMS | Encounter Summary ---
Demographics + + + | Address | [address] | | | [place] [address] | + + + | Home Phone | | + + + | Preferred Language | Unknown | + + + | Marital Status | | + + + | Yarsani Affiliation | 1001 | + + + | Race | Unknown | + + + | Ethnic Group | Unknown | + + + Author + + + | Author | [facility] | | | and [place] | + + + | Organization | [facility] | | | and [place] | + [...] [place], [place] | | | | | [address] | | + + + + + Care Team Providers + +------+ + | Care Stringed Instrument Repairer Name | Role | Phone | + +------+ + | Maude Means MD | PCP | | + +------+ + Encounter Details +--------+ + + + + | Date | Type | Department | Care Team | Description | +--------+ + + + + | 11/06/ | Documentati | [facility] | Jojo Henry | | | 2019 | on | MED CTR RADIATION | MD Jessica [address] | | | | | [facility]OGY CLINIC [address] | [facility] | | | | | [address] | [address] | | | | | [place] [address] | | | | | | [phone] | | | +--------+ + + + [...] opal 3, no LV SI, ER 100%, [place] 0%, Ki-67 39%, HER-2/savanna nonamplified. 08/05/2018 Surgery Surgeon: Dr. Lucio Surgery indicated: Lumpectomy and sentinel lymph node biopsy Final pathology details: Invasive carcinoma, 2.3 cm, segment reading and focal mucinous fea tures, grade 3, close margin (0.1 mm), no LVSI, 0/1 sentinel lymph node. Pathologic stage IIA, pT2 pN0 (sn) Now completing adjuvant whole breast radiation with lumpectomy cavity boost Treatment Dates: Yamilet was treated in our clinic between the dates of 10/06/2018 - 11/06/2018. Intent: Curative Prescription: R breast (Plan ID - R Breast_FiF) - Rx Dose 4,005cGy (Status - Treatment Approved) - 5 R breast (Plan ID - R breast bst) - Rx Dose 1,000cGy (Status - Treatment Approved) - Treatment Technique: 3-D Gvdav-Fl-Ugvlj Treatment Summary: Course: R breast Treatment Site [...] Disposition: 1. Follow-up with Dr. Nunez in [place] in the next 1 2 months for [...] MD Radiation Oncologist Department of Radiation Oncology [facility] This note was transcribed using [employer] speech recognition software. As a result, there may be unintended for medical and/or spelling errors. Every attempt is made to correct dictati on. If there are any questions or errors please contact our office. CC: Patient Care Team: Maude Means MD as PCP - General (Family Medicine) Yury Hand PA-C as Physician Team Assistant (Physical Medicine and Rehabilitation) Jojo Henry MD [...] [place] | | | | | | [id number] | | | | | | | | +--------+ + + + + documented as of this encounter Visit Diagnoses + + | Diagnosis | + + | Malignant neoplasm of upper-outer quadrant of right breast in female, estrogen | | receptor positive (HCC) - Primary | + + documented in this encounter"
--- OUTSIDE RECORDS SUMMARY | ~2019-11-01 | XMS | Encounter Summary ---
Demographics + + + | Address | [address] | | | [place] [address] | + + + | Home Phone | | + + + | Preferred Language | Unknown | + + + | Marital Status | | + + + | Sabianist Affiliation | 1001 | + + + | Race | Unknown | + + + | Ethnic Group | Unknown | + + + Author + + + | Author | and [facility] | | | and [place] | + + + | Organization | and [facility] | | | and [place] [...] [place], [place] | | | | | [address] | | + + + + + Care Team Providers + +------+ + | Care Dredge Engineer Name | Role | Phone | [...] Kenny [place] | | | | | [phone] | [place] [address] | | +--------+ + + + + [...] | | | | | | [place], [place] | | | | | | [address] | | | | | | | [...]
--- OUTSIDE RECORDS SUMMARY | ~2019-11-01 | XMS | Encounter Summary ---
Demographics + + + | Address | [address] | | | [place] [address] | + + + | Home Phone [...] [facility] | | | and [place] | + + + | Organization | [facility] | | | and [...] | [place] | | | | | [address] | | + + + + + Care Team Providers + +------+ + | Care High Risk Case Manager Name | Role | Phone | [...] + + | 10/16/ | Hospital | [facility] | Homar Ortega DO | Malignant neoplasm | | 2018 | Encounter | MED CTR RADIATION | [address] | of upper-outer | | | | ONCOLOGY CLINIC 401 | [place], [place] | quadrant of right | | | | [place] | [address] | breast in female, | | | | [place] [address] | | estrogen receptor | | | | [phone] | | positive (HCC) | | | [...] mouth 2 times daily. 60 tablet 1 Pnstneq-Urkspvapjcdxx-Fwjjxvrd (EXCEDRIN PO) Take 250 mg by mouth [...] | | | | | | [place] | | | | | | [address] | | | | | | | | +--------+ + + + + documented as of this encounter Visit Diagnoses + + | Diagnosis | + + | Malignant neoplasm of upper-outer quadrant of right breast in female, estrogen | | receptor positive (HCC) - Primary | + + documented in this encounter"
--- OUTSIDE RECORDS SUMMARY | ~2019-11-01 | XMS | Encounter Summary ---
Demographics + + + | Address | [address] | | | [place] [address] | + + + | Home Phone [...] + | Author | [facility] | | | and [place] | + + + | Organization | [facility] | | | and [place] [...] [place], [place] | | | | | [address] | | + + + + + Care Team Providers + +------+ + | Care Certified Pathology Assistant Name | Role | Phone | + +------+ + PCP | Unavailable | + +------+ + Encounter Details +--------+ + + + + | Date | Type | Department | Care Team | Description | +--------+ + + + + | 04/19/ | [facility] | [facility] | Brett Wing MD | | | 1997 | Encounter | MED CTR GENERIC OP | [address] | | | | | CONV DEPT [address] | [address] [place] [address] | | | | | [place], | [address] | | | | | [place] [address] | | | | | | [phone] | | | +--------+ + + + [...] [place] | | | | | | [address] | | | | | | | | +--------+ + + + + documented as of this encounter Visit Diagnoses Not on filedocumented in this encounter"
--- OUTSIDE RECORDS SUMMARY | ~2019-11-01 | XMS | Encounter Summary ---
Demographics + + + | Address | [address] | | | [place] [address] | + + + | Home Phone | | + + + | Preferred Language | Unknown | + + + | Marital Status | | + + + | Episcopal Affiliation | 1001 | + + + | Race | Unknown | + + + | Ethnic Group | Unknown | + + + Author + + + | Author | [facility] | | | and [place] | + + + | Organization | [facility] | | [...] | [place] | | | | | [address] | | + + + + + Care Team Providers + +------+ + | Care Associate Professor Of Mathematics Name | Role | Phone | + [...] 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[address] | [address] | | | | n | hesis of | [facility], | [place], | | | | | lumbar | [place] [address] | [place] [address] | | | | | region | Phone: | Phone: | | | | | Foraminal | [phone] | [phone] | | | | | stenosis of | Fax: | Fax: | | | | | lumbar | [phone] | [phone] | | | | | region | [...] | | | | [address] | [place], [place] | | | | | | [place] | [address] | | | | | | Ave | Phone: | | | | | | [place], | [phone] | | | | | | [place] | Fax: | | | | | | [address] | [phone] | | | | | | Phone: | | | | | | | [phone] | | | | | | | Fax: | | | | | | | [phone] | | +--------+--------+ + + + + Encounter Details +--------+---------+ + + + | Date | Type | Department | Care Team | Description | +--------+---------+ + + + | 12/31/ | Office | [facility] | Bhavesh Lomax MD | Spondylolisthesis of | | 2017 | Visit | NEUROSURGERY [address] | [address] | lumbar region; | | | | [address] | [place] [address] | Foraminal stenosis | | | | [place] | [phone] | of lumbar region; | | | | [address] | | Other idiopathic | | | | [phone] | [place] | scoliosis, lumbar | | | | | [address] | region; Lumbar facet | | | | | [address] | arthropathy; | | | | | [place] [address] | Postural deformity; | | | | | [phone] | Other secondary | | | | [...] [facility], [address] [place] [address] FAX: [phone] NEUROSURGERY HISTORY AND PHYSICAL EXAMINATION CHIEF COMPLAINT: [...] / COLONOSCOPY; Surgeon: Brett Wing MD; Location: [facility] MEDICAL PROCEDUR E UNIT FOOT SURGERY Right [...] mouth 2 times daily. 60 tablet 1 Oulrjnt-Emkhdfvsctnmp-Hpoyozwy (EXCEDRIN PO) Take 250 mg by mouth [...] has no apparent deficits with short or custodial memory. CRANIAL NERVES: II: Acuity is intact. 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
--- OUTSIDE RECORDS SUMMARY | ~2019-11-01 | XMS | Encounter Summary ---
Demographics + + + | Address | [address] | | | [place] [address] | + + + | Home Phone | | + + + | Preferred Language | Unknown | + + + | Marital Status | | + + + | Jain Affiliation | 1001 | + + + | Race | Unknown | + + + | Ethnic Group | Unknown | + + + Author + + + | Author | [facility] | | | and [place] | + + + | Organization | [facility] [...] [place], [place] | | | | | [address] | | + + + + + Care Team Providers + +------+ + | Care Cloth Mercerizer Operator Name | Role | Phone | [...] | | [address] | [place] [address] | | | | | [place] | [phone] | | | | | [address] | | | | | | [phone] | | | +--------+ + + + [...] [place] | | | | | | [address] | | | | | | | | +--------+ + + + + documented as of this encounter Visit Diagnoses Not on filedocumented in this encounter"
--- OUTSIDE RECORDS SUMMARY | ~2019-11-01 | XMS | Encounter Summary ---
Demographics + + + | Address | [address] | | | [place] [address] | + + + | Home Phone [...] + | Author | [facility] | | | and [place] | + + + | Organization | [facility] | [...] | [place] | | | | | [address] | | + + + + + Care Team Providers + +------+ + | Care Top Inventory Control Executive Name | Role | Phone | + [...] + + | 10/23/ | Hospital | [facility] | Jojo Henry | Malignant neoplasm | | 2019 | Encounter | MED CTR RADIATION | MD Jessica [address] | of upper-outer | | | | ONCOLOGY CLINIC [address] | [place], [place] | quadrant of right | | | | [place] | [address] | breast in female, | | | | [place] [address] | | estrogen receptor | | | | [phone] | | positive (HCC) | | | [...] mouth 2 times daily. 60 tablet 1 Mhjwnyo-Urmizbsrjyxhe-Oeiwsted (EXCEDRIN PO) Take 250 mg by mouth [...] [place] | | | | | | [place], [place] | | | | | | [address] | | | | | | | | +--------+ + + + + documented as of this encounter Visit Diagnoses + + | Diagnosis | + + | Malignant neoplasm of upper-outer quadrant of right breast in female, estrogen | | receptor positive (HCC) - Primary | + + documented in this encounter
--- OUTSIDE RECORDS SUMMARY | ~2019-11-01 | XMS | Encounter Summary ---
Demographics + + + | Address | [address] | | | [place] [address] | + + + | Home Phone | | + + + | Preferred Language | Unknown | + + + | Marital Status | | + + + | Mormonism Affiliation | 1001 | + + + | Race | Unknown | + + + | Ethnic Group | Unknown | + + + Author + + + | Author | [facility] | | | and [place] | + + + | Organization | [facility] | [...] | [place] | | | | | [address] | | + + + + + Care Team Providers + +------+ + | Care Public Works Manager Name | Role | Phone | [...] | | | | | | [place] [address] | | | | | | [phone] | | | +--------+ + + + [...] | 2019 | | | MD [address] | | | | | | [place] | | | | | | [address] | | | | | | | | +--------+ + + + + documented as of this encounter Visit Diagnoses Not on filedocumented in this encounter"
--- OUTSIDE RECORDS SUMMARY | ~2019-11-01 | XMS | Encounter Summary ---
Demographics + + + | Address | [address] | | | [place] [address] | + + + | Home Phone [...] + | Author | [facility] | | | and [place] | + + + | Organization | [facility] | | | and [...] | [place] | | | | | [address] | | + + + + + Care Team Providers + +------+ + | Care Hat Sizer Name | Role | Phone | + +------+ + | Puneet Donovan MD | PCP | | + +------+ + Encounter Details +--------+ + + + + | Date | Type | Department | Care Team | Description | +--------+ + + + + | 12/31/ | [facility] | [facility] | Bhavesh Lomax MD | Back pain, | | 2018 | Encounter | MED CTR XRAY [address] | [address] | unspecified back | | | | [place] | [place] [address] | location, | | | | [place] [address] | [phone] | unspecified back | | | | [phone] | | pain laterality, | | | [...] | | | | | | [facility] [place] | | | | | | [address] | | | | | | | | +--------+ + + + + documented as of this encounter Visit Diagnoses + + | Diagnosis | + + | Back pain, unspecified back location, unspecified back pain laterality, unspecified | | chronicity | + + documented in this encounter"
[~2019-11-01 15:03] MED LIST changes: +ACID REDUCER150 MG PO; +ALENDRONATE SOD70 MG PO; +ARIMIDEX1 MG PO; +CALCIUM-MAG-ZI1 EACH PO; +CLARITIN10 M2 PO; +COMPLETE ALLERG25 MG PO; +EXCEDRIN EXTRA1 EAC1 PO; +EXEMESTANE25 MG PO; +HYDROCODON-ACE1 EA10 PO; +MAPAP325 MG PO
[2019-11-01] MEDS ORDERED: ACID REDUCER20 MG PO (15:14)
[2019-11-01] MEDS ORDERED: TAMOXIFEN CITRA20 MG PO (15:14)
[2019-11-01] MEDS ORDERED: HYDROMORPHONE HC2 MG PO (16:55)
== END 2019-11-01 17:13 | disposition home or self-care (01) ==
LOC: ED 15:03
DX: S02.5XXA Fracture of tooth (traumatic), initial encounter for closed fracture (principal); S01.511A Laceration without foreign body of lip, initial encounter; S20.211A Contusion of right front wall of thorax, initial encounter; W01.198A Fall on same level from slipping, tripping and stumbling with subsequent striking against other object, initial encounter; I48.91 Unspecified atrial fibrillation; Z88.5 Allergy status to narcotic agent; Z88.8 Allergy status to other drugs, medicaments and biological substances; Z88.0 Allergy status to penicillin; Z88.2 Allergy status to sulfonamides; Z88.1 Allergy status to other antibiotic agents; Z91.013 Allergy to seafood; Z88.6 Allergy status to analgesic agent; Z79.899 Other long term (current) drug therapy
CPT/HCPCS: 71046; 99283-25

== ENCOUNTER 2021-04-28 06:37 | Emergency (ER) | payer MEDICARE ==
[~2021-04-28] VITALS: Ht 162.6 cm; Wt 90.3 kg
[~2021-04-28 06:37] MED LIST changes: +ACID REDUCER20 MG PO; +HYDROMORPHONE HC2 MG PO; +TAMOXIFEN CITRA20 MG PO
[2021-04-28] MEDS ORDERED: CEPHALEXIN500 MG PO (08:55)
== END 2021-04-28 09:31 | disposition home or self-care (01) ==
LOC: ED 06:37
DX: S90.31XA Contusion of right foot, initial encounter (principal); X50.1XXA Overexertion from prolonged static or awkward postures, initial encounter; I48.91 Unspecified atrial fibrillation; M19.90 Unspecified osteoarthritis, unspecified site; Z88.5 Allergy status to narcotic agent; Z88.8 Allergy status to other drugs, medicaments and biological substances; Z88.0 Allergy status to penicillin; Z88.1 Allergy status to other antibiotic agents; Z91.013 Allergy to seafood; Z88.6 Allergy status to analgesic agent; Z79.899 Other long term (current) drug therapy
CPT/HCPCS: 73610; 73630; 99283-25

== ENCOUNTER 2025-07-15 18:22 | Emergency (ER) | payer MEDICARE ==
[~2025-07-15] VITALS: Ht 162.6 cm; Wt 85.0 kg
[~2025-07-15 18:22] MED LIST changes: +CEFPROZIL500 MG PO; +CEPHALEXIN500 MG PO; +SENNA LAX8.6 MG PO; +VITAMIN C500 M1 PO; +VITRON-C TABLE1 EACH PO
[2025-07-15] MEDS ORDERED: NITROGLYCERIN 0.4 MG SUBL SL PRN (18:45)
[2025-07-15] MEDS ORDERED: ASPIRIN 81 MG CHEW PO ONE (18:45)
[2025-07-15] MEDS ORDERED: HYDROmorphone HCL 1 MG/ML SYR IV PRN (19:15)
[2025-07-15 19:23] LABS: BASOPHILS 0.4 % (0.1-1.2); EOSINOPHILS 1.3 % (0.7-5.8); LYMPHOCYTES 16.0 % (19.3-51.7); MCH 31.6 PG (25.6-32.2); MCHC 32.2 g/dL (32.2-35.5); MCV 98.0 fL (79.4-94.8); MONOCYTES 9.5 % (4.7-12.5); NEUTROPHILS 72.6 % (34.0-71.1); RBC 3.42 M/uL (3.93-5.22)
[2025-07-15 19:32] LABS: INR 1.22 (0.80-1.30); PROTIME 14.6 Sec (11.2-14.2)
[2025-07-15 19:43] LABS: ALT (SGPT) 16.0 U/L (14-59); AST (SGOT) 19.0 U/L (15-37); GLOMERULAR FILTRATION RATE,EST 62.0 mL/min (>60); PROTEIN, TOTAL 6.7 g/dL (6.4-8.2); UREA NITROGEN 14.0 mg/dL (7-18)
[2025-07-15] MEDS ORDERED: DILAUDID2 MG PO (19:55)
[2025-07-15] MEDS ORDERED: HYDROmorphone HCL 2 MG HOME.PACK PO ONE (20:00)
[2025-07-15 20:11] VITALS: BP 108/64
--- NOTE | 2025-07-18 10:41 | EKG ---
[facility] [address] [facility] [place] [address] Signed Atrial fibrillation with rapid ventricular response Left axis deviation Abnormal ECG When compared with ECG of 04-AUG-2018 11:46, Vent. rate has increased BY 35 BPM Confirmed by Shaun Redd DO ([id number]) on 07/18/2025 10:40:57 AM Electronically Signed By: SHAUN REDD DO 07/18/25 1041 PATIENT NAME: EMELIA BERGHalie VALDOVINOS Electrocardiogram DATE OF : 52 PHYSICIAN: SHAUN REDD DO REPORT #: [id number] REPORT IS CONFIDENTIAL AND NOT TO BE RELEASED WITHOUT AUTHORIZATION
== END 2025-07-15 20:13 | disposition home or self-care (01) ==
LOC: ED 18:22
PROVIDERS: Emergency Medicine
DX: R07.89 Other chest pain (principal); I48.91 Unspecified atrial fibrillation; Z79.01 Long term (current) use of anticoagulants; Z79.82 Long term (current) use of aspirin; Z79.899 Other long term (current) drug therapy; Z88.0 Allergy status to penicillin; Z88.2 Allergy status to sulfonamides; Z88.1 Allergy status to other antibiotic agents; Z91.013 Allergy to seafood; Z88.5 Allergy status to narcotic agent
CPT/HCPCS: 36415; 71045; 80053; 83735; 84484; 85025; 85610; 93005; 93010; 99284-25; A9270

== ENCOUNTER 2025-07-26 17:02 | Emergency (ER) | payer MEDICARE ==
[~2025-07-26] VITALS: Ht 162.6 cm; Wt 79.5 kg
--- OUTSIDE RECORDS SUMMARY | 2025-07-26 17:09 | XMS ---
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 Matt has no Care Guidelines for this patient. rEicka VISIT COUNT (12 MO.) 2 [facility] T[facility] 2 NOTE: Visits indicate total known visits. ED/[facility] VISIT TRACKING (12 MO.) 07/26/2025 17:[facility] [place] [facility] [place] COMPLAINT: - WEAKNESS 07/15/2025 18:[address] [facility] [place] TYPE: Emergency COMPLAINT: - CHEST PAIN DIAGNOSES: - Allergy status to narcotic agent - Allergy status to other antibiotic agents - Allergy status to penicillin - Allergy status to sulfonamides - Allergy to seafood - Chest pain, unspecified - terminal system operator (current) use of anticoagulants - terminal system operator (current) use of aspirin - Other chest pain - Other rn long term care (current) drug therapy - Unspecified atrial fibrillation INPATIENT VISIT TRACKING (12 MO.) No inpatient visits to display in this time frame [email or web address]
[2025-07-26 17:43] LABS: MCH 31.5 PG (25.6-32.2); MCHC 33.8 g/dL (32.2-35.5); MCV 93.2 fL (79.4-94.8); RBC 3.84 M/uL (3.93-5.22)
[2025-07-26 17:56] LABS: LYMPHOCYTES, MANUAL DIFF 4; MONOCYTES, MANUAL DIFF 3; NEUTROPHILS, MANUAL DIFF 93
[2025-07-26 17:58] LABS: ALT (SGPT) 14.0 U/L (14-59); AST (SGOT) 12.0 U/L (15-37); GLOMERULAR FILTRATION RATE,EST 53.0 mL/min (>60); PROTEIN, TOTAL 5.9 g/dL (6.4-8.2); UREA NITROGEN 21.0 mg/dL (7-18)
[2025-07-26] MEDS ORDERED: CIPRO500 MG PO (18:57)
[2025-07-26] MEDS ORDERED: CIPROFLOXACIN 500 MG TAB PO ONE (19:15)
[2025-07-26] MEDS ORDERED: ONDANSETRON 4 MG TAB ODT SL ONE (19:15)
[2025-07-26 19:16] VITALS: BP 102/66
== END 2025-07-26 19:18 | disposition home or self-care (01) ==
LOC: ED 17:02
PROVIDERS: Emergency Medicine
DX: K52.9 Noninfective gastroenteritis and colitis, unspecified (principal); I48.91 Unspecified atrial fibrillation; Z79.01 Long term (current) use of anticoagulants; Z79.82 Long term (current) use of aspirin; Z79.899 Other long term (current) drug therapy; Z88.0 Allergy status to penicillin; Z88.2 Allergy status to sulfonamides; Z88.1 Allergy status to other antibiotic agents; Z88.5 Allergy status to narcotic agent; Z88.6 Allergy status to analgesic agent; Z88.8 Allergy status to other drugs, medicaments and biological substances; Z91.013 Allergy to seafood
CPT/HCPCS: 80053; 83690; 85025; 87045; 87046; 99284; A9270

== ENCOUNTER 2025-08-01 06:40 | Inpatient (IN) | payer MEDICARE ==
[2025-08-01] VITALS (22 sets, daily range): BP systolic 85–105; BP diastolic 54–70
[~2025-08-01] VITALS: Ht 162.6 cm; Wt 90.9 kg
[~2025-08-01 06:40] MED LIST changes: +CIPRO500 MG PO; +MAGNESIUM400 M1 PO; -MAGNESIUM400 MG PO
--- OUTSIDE RECORDS SUMMARY | 2025-08-01 06:44 | XMS ---
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 Matt has no Care Guidelines for this patient. [facility] MO.) [facility] NOTE: Visits indicate total known visits. ED/C VISIT TRACKING (12 MO.) [facility]25 06[facility] COMPLAINT: - ABDOMINAL PAIN 07/26/2025 17:03 [facility] [place] TYPE: Emergency COMPLAINT: - WEAKNESS DIAGNOSES: - Allergy status to analgesic agent - Allergy status to narcotic agent - Allergy status to other antibiotic agents - Allergy status to other drugs, medicaments and biological substances - Allergy status to penicillin - Allergy status to sulfonamides - Allergy to seafood - Diarrhea, unspecified - assistant terminal manager (current) use of anticoagulants - assistant terminal manager (current) use of aspirin - Noninfective gastroenteritis and colitis, unspecified - Other detention (current) drug therapy - Unspecified atrial fibrillation 07/15/2025 18:23 [facility] [place] TYPE: Emergency COMPLAINT: - CHEST PAIN DIAGNOSES: - Allergy status to narcotic agent - Allergy status to other antibiotic agents - Allergy status to penicillin - Allergy status to sulfonamides - Allergy to seafood - Chest pain, unspecified - assistant terminal manager (current) use of anticoagulants - assistant terminal manager (current) use of aspirin - Other chest pain - Other intermediate frame tender (current) drug therapy - Unspecified atrial fibrillation INPATIENT VISIT TRACKING (12 MO.) No inpatient visits to display in this time frame [email or web address]
[2025-08-01] MEDS ORDERED: PANTOPRAZOLE SODIUM 40 MG/10 ML VIAL IV ONE (06:45)
[2025-08-01] MEDS ORDERED: LACTATED RINGER'S 1,000 ML IV ONE (07:00)
[2025-08-01 07:01] LABS: MCH 31.7 PG (25.6-32.2); MCHC 34.8 g/dL (32.2-35.5); MCV 91.1 fL (79.4-94.8); RBC 3.72 M/uL (3.93-5.22)
[2025-08-01 07:13] LABS: INR 2.46 (0.80-1.30); PROTIME 25.2 Sec (11.2-14.2)
[2025-08-01 07:16] LABS: ALT (SGPT) 14.0 U/L (14-59); AST (SGOT) 18.0 U/L (15-37); GLOMERULAR FILTRATION RATE,EST 22.0 mL/min (>60); PROTEIN, TOTAL 5.4 g/dL (6.4-8.2); UREA NITROGEN 53.0 mg/dL (7-18)
[2025-08-01 07:21] LABS: BANDS, MANUAL DIFF 6; LYMPHOCYTES, MANUAL DIFF 6; MONOCYTES, MANUAL DIFF 1; NEUTROPHILS, MANUAL DIFF 87
[2025-08-01 07:34] LABS: ABO O; ANTIBODY SCREEN NEGATIVE; RH POSITIVE
[2025-08-01 07:45] LABS: LACTIC ACID, BLOOD 1.7 mmol/L (0.4-2.0)
[2025-08-01] MEDS ORDERED: SODIUM CHLORIDE 0.9% 500 ML IV PRN (08:15)
[2025-08-01] MEDS ORDERED: NOREPINEPHRINE BITARTRATE 250 ML IV SCH (10:00)
[2025-08-01] MEDS ORDERED: LIDOCAINE 2% VISCOUS 6 ML SYR TOP ONE (10:15)
[2025-08-01 10:30] LABS: BLOOD/HGB, URINE NEGATIVE (Negative); KETONE, URINE TRACE (Negative); LEUK ESTERASE, URINE NEGATIVE (negative); NITRITE, URINE NEGATIVE (negative)
[2025-08-01] MEDS ORDERED: PHARMACY RENAL DOSE ADJUSTMENT 1 DOSE MISC PO SCH (12:00)
[2025-08-01] MEDS ORDERED: LACTATED RINGER'S 1,000 ML IV SCH (12:00)
[2025-08-01] MEDS ORDERED: PANTOPRAZOLE SODIUM 40 MG/10 ML VIAL IV SCH (12:00)
[2025-08-01] MEDS ORDERED: ACETAMINOPHEN 325 MG TAB PO PRN (12:00)
--- NOTE | 2025-08-01 13:00 | NUR ---
PT ARRIVED VIA STREACHER FROM ED. FACE TO FACE REPORT GIVEN, SLIDER MAT USED TO TRANSFER PT TO BED. DOPPLER USED TO PEDI PULSES, EDEMS 4+ IN BILT FEEL, VERY COLD AND PALE TO THE TOUCH. BILT LOWER LEGS ALSO HAVE MEZA DISCOLORATION NOTED. PT STATES THAT IS NORMAL AND HER LEG SWELLING IS ABOUT FOR THE LAST FEW DAYS. NOREPINEPHRINE GTT RUNNING IN LT IV SITE THAT IS WNL'S AT THIS TIME. NICHOLE BERKOWITZ COMPLETING THE ADMITT PROCESS. ROOM TEMP INCREASED TO HELP KEEP PT WARM, AND WARM BLANKETS ON PT ALSO. PTS IS IN THE ROOM. PT IS ABLE TO ANWER ALL THE ADMISSION QUESTIONS AT THIS TIME.
--- NOTE | 2025-08-01 14:43 | NUR ---
TRASH REMOVED FROM THE ROOM, PT NEW TO THE FLOOR, BUT INTAKE GARBAGE MADE THE TRASH CAN FULL. PT HAS A VISITOR IN THE ROOM.
--- NOTE | 2025-08-01 14:50 | NUR ---
WARM PK PLACED ON THE BOTTOM OF BOTH FEET WITH WARM BLANKETS. PT FEET, PALE, VERY COLD TO THE TOUCH.
--- NOTE | 2025-08-01 18:36 | NUR ---
THIS NURSE CALLED DR. REDD FORLOW URINE OUTPUT FOR THIS SHIFT. RESENDIZ OUTPUT IN THE CCU HAS BEEN 160 OF BERT URINE, AND 145 URINE OUTPUT IN THE ED. DR. REDD ENSURED SHE WAS ON IV FLUIDS AND WAS OKAY WITH NO INTERVENTION AT THIS TIME.
--- NOTE | 2025-08-01 19:48 | NUR ---
REPORT RECEIVED FROM SHO VARELA. pt RESTING IN BED WITH CALL LIGHT IN REACH. IV SITE ASSESSED, IV GTT AND IVF INFUSING WNL. RESENDIZ DRAINING WNL. pt DENIES NEEDS AT THIS TIME.
--- NOTE | 2025-08-01 20:35 | NUR ---
ASSESSMENT COMPLETE. 2+ EDEMA BLE, ELEVATED ON PILLOWS. RIGHT LEG WEEPING CLEAR DRAINAGE. NO OPEN SORES NOTED. PEDAL PULSES NOTED WITH DOPPLER, CAP REFILL WNL. LUNG SOUNDS CLEAR THROUGHOUT, pt ON RA. RESENDIZ CARE COMPLETE. IV SITES FLUSHED WNL. NOREPI GTT TITRATED TO 3 MCG/MIN AT THIS TIME. VSS. CALL LIGHT IN REACH.
[2025-08-01] MEDS ORDERED: MELATONIN 3 MG TAB PO PRN (21:00)
--- NOTE | 2025-08-01 21:17 | NUR ---
CALL LIGHT ANSWERED. pt UP TO BSC 2PA TO PIVOT WITH FWW. pt HR UP TO 180S BRIEFLY AND BACK TO 100S AFIB AT REST. pt EDUCATED WILL TRY BED BERGER FOR NEXT BM. APPROX 150 MLS BLOODY LIQUID STOOL NOTED. SAMPLE SENT TO LAB. pt RESTING IN BED WITH CALL LIGHT IN REACH.
--- NOTE | 2025-08-01 21:43 | NUR ---
CALL LIGHT ANSWERED. pt INCONTINENT OF LIQUID STOOL. BLOODY WITH SOME LIQUID BROWN STOOL. ATTENDS, GOWN AND CHUX CHANGED. pt REPOSITIONED IN BED 2PA, LEGS ELEVATED ON PILLOWS. IVF AND IV NOREPI GTT INFUSING WNL. CALL LIGHT AND PERSONAL SUPPLIES WITHIN REACH.
--- NOTE | 2025-08-01 22:04 | NUR ---
IN ROOM FOR ANTIBIOTIC ADMINISTRATION. IV FLUSHED WNL. IV ANTIBIOTIC INFUSING ORDERED. pt DENIES PAIN, DENIES ADDITIONAL NEEDS.
--- NOTE | 2025-08-01 22:30 | NUR ---
NOTIFIED THAT PATIENT HAS HAD TWO LARGE LIQUID STOOLS FIRST ONE SVITLANA MARY BLOOD AND SECOND SLIGHT LESS SVITLANA, NEW ORDER FOR LAB CBC TO CHECK H/H. TO NOTIFY IF H/H IS CRITICAL WHEN RESULTED. ALSO UPDATED ON PATIENT UP TO COMMODE AND TACHYCARDIA HIGH 184/MIN WITH ACTIVITY, NOT SUSTAINED, WITH REST IMMEDIATELY RETURN TO 100/MIN. ALSO UPDATED THE LEVOPHED DRIP IS AT 2MCG/MIN AT THIS TIME. B/P STABLE.
--- NOTE | 2025-08-01 22:59 | NUR ---
ANALYTIC PROGRAMMER IN ROOM FOR LAB DRAW. pt RESTING IN BED, DENIES NEEDS. NOREPI GTT INFUSING WNL. CALL LIGHT IN REACH.
[2025-08-01 23:03] LABS: BASOPHILS 0.5 % (0.1-1.2); EOSINOPHILS 0 % (0.7-5.8); LYMPHOCYTES 2.0 % (19.3-51.7); MCH 31.6 PG (25.6-32.2); MCHC 34.2 g/dL (32.2-35.5); MCV 92.2 fL (79.4-94.8); MONOCYTES 1.3 % (4.7-12.5); NEUTROPHILS 92.6 % (34.0-71.1); RBC 2.82 M/uL (3.93-5.22)
[2025-08-02] VITALS (26 sets, daily range): BP systolic 81–124; BP diastolic 52–75
--- NOTE | 2025-08-02 00:30 | NUR ---
pt SLEEPING, AWAKENS TO VOICE. ASSESSMENT COMPLETE. VSS. IV SITE ASSESSED, IVF AND NOREPI GTT INFUSING WNL. pt DENIES PAIN. AFEBRILE. CALL LIGHT IN REACH.
--- NOTE | 2025-08-02 01:50 | NUR ---
CALL LIGHT ANSWERED. pt THINKS SHE NEEDS TO HAVE A BM. 2PA TO TURN pt, BED BERGER PLACED UNDER pt. CALL LIGHT IN LAP.
--- NOTE | 2025-08-02 02:29 | NUR ---
CALL LIGHT ANSWERED. ASSISTED OFF OF BED BERGER, NO BM. ATTENDS IN PLACE. IVF AND NOREPI GTT INFUSING WNL. GTT TITRATED TO 1 MCG/MIN AT THIS TIME. CALL LIGHT AND PERSONAL SUPPLIES IN REACH. RESENDIZ DRAINING CLEAR YELLOW URINE.
--- NOTE | 2025-08-02 04:00 | NUR ---
pt RESTING IN BED WITH EYES CLOSED. BREATHING UNLABORED. HR 87- 90S. RR 17. NO DISTRESS NOTED.
[2025-08-02 05:36] LABS: BASOPHILS 0.4 % (0.1-1.2); EOSINOPHILS 0 % (0.7-5.8); LYMPHOCYTES 3.5 % (19.3-51.7); MCH 31.5 PG (25.6-32.2); MCHC 34.6 g/dL (32.2-35.5); MCV 90.9 fL (79.4-94.8); MONOCYTES 1.7 % (4.7-12.5); NEUTROPHILS 90.4 % (34.0-71.1); RBC 2.86 M/uL (3.93-5.22)
[2025-08-02 05:56] LABS: ALT (SGPT) 9.0 U/L (14-59); GLOMERULAR FILTRATION RATE,EST 27.0 mL/min (>60); PROTEIN, TOTAL 4.1 g/dL (6.4-8.2); UREA NITROGEN 44.0 mg/dL (7-18)
[2025-08-02 06:08] LABS: AST (SGOT) 9.0 U/L (15-37)
--- NOTE | 2025-08-02 06:29 | NUR ---
CALL LIGHT ANSWERED. pt WITH LIQUID BLOODY BOWEL MOVEMENT, MISSED BED BERGER. LINENS, ALEXANDRA, ATTENDS CHANGED. RESENDIZ CARE COMPLETE. HR INCREASES TO 150S WITH TURNING, AFIB RHYTHM. ASSESSMENT COMPLETE. IV SITE FLUSHED WNL. IV ANTIBIOTIC INFUSING ORDERED. CALL LIGHT IN REACH.
[2025-08-02] MEDS ORDERED: POTASSIUM CHLORIDE 40 MEQ,LIDOCAINE HCL 1% 40 MG in DEXTROSE 5% 250 ML IV ONE (06:30)
[2025-08-02] MEDS ORDERED: POTASSIUM CHLORIDE 10 MEQ TABCR PO ONE (06:30)
--- NOTE | 2025-08-02 06:55 | NUR ---
IV ANTIBIOTIC COMPLETE. IV SL WNL. PO POTASSIUM ADMINISTERED WITH JUICE. pt SITTING UP IN BED. DENIES NEEDS. CALL LIGHT IN REACH.
--- NOTE | 2025-08-02 10:15 | NUR ---
Spoke with Yamilet. She states she lives in a home with 3-4 steps. She has not been able to get into the home without her spouse lifting her. Pt feels she will need placement with rehab on dc. Pt states she has had colitis with flares since the early 1992. She changed to a vegan diet and this helped. She is unsure what has set her flare off this time. She lives with her spouse and uses a walker and a cane. They do not have any financial problems and she denies any safety concerns in her home. She states her home is very small and at times this is very overwhelming to her. Pt would like placement to a SNF on dc. No dc date at this time.
--- NOTE | 2025-08-02 10:27 | NUR ---
PT NOT AVAILABLE FOR VISIT. PROVIDED PRAYER.
--- NOTE | 2025-08-02 11:14 | NUR ---
, DARRELL, AT BEDSIDE WITH PATIENT. PATIENT'S B/PS SOFT, CUFF READJUSTED. DARRELL ASKED WHAT PLACEMENT AFTER DISCHARGE LOOKS LIKE. PATIENT AND FAMILY EDUCATED ABOUT PHYSICAL AND OCCUPATIONAL THERAPY AT SNF, THEN PLANS TO GO HOME AFTER NORMAL BASELINE IS ACHIEVED. PATIENT AND FAMILY COMMUNICATED UNDERSTANDING. PATIENT AND DENIED FURTHER QUESTIONS AT THIS TIME.
--- NOTE | 2025-08-02 11:16 | NUR ---
CLEANED UP THE ROOM AND TOOK OUT TRASH. GOT PT A BLANKET FOR WARMTH AND ICE WATER. ALSO PLACED KLEENEX BY HER BED, REQUESTED. PT HAS CALL LIGHT AND A VISITOR IN THE ROOM. PT REPORTS NEEDING NOTHING MORE AT THIS TIME.
--- NOTE | 2025-08-02 11:44 | NUR ---
UR CLINICAL REVIEW: 2 MN FOR VERSALUS-PER CARPENTRY SUPERVISOR MEETS INPT FOR SEPSIS SECONDARY TO COLITIS WITH NEED FOR IV ABX, IVF, SERIAL LABS AND CARDIAC MONITORING MEDICARE INPT 08/01/25 @ 1200 ORDER MATCHES REG NO AUTH REQUIRED PER MEDICARE GUIDELINES DISCHARGE TO HOME WHEN STABLE.
--- NOTE | 2025-08-02 12:24 | NUR ---
PT WAS PLACED ON A BED BERGER TO HAVE A BM, BUT SHE ENDED UP HAVING THE BOWEL MOVEMENT OUTSIDE OF THE BED BERGER. RN AND I COMPLETED A FULL BED BATH AND LINEN CHANGE ON THIS PT. RN DOCUMENTED THE BM AND I AM DOCUMENTING THE BEDBATH AND LINEN CHANGE. PT HAS FRESH ICE WATER BESIDE THE BED AND SOME VEGI BROTH FOR LUNCH, BUT THE PT SAID SHE WAS STILL FULL FROM BREAKFAST. PT HAS THE CALL LIGHT AND A VISITOR IN THE ROOM. PT REPORTS NEEDING NOTHING MORE AT THIS TIME. TRASH ALSO REMOVED FROM ROOM.
[2025-08-02 13:25] LABS: RETIC, PERCENT 0.98 % (0.5-1.7)
[2025-08-02 13:30] LABS: INR 2.01 (0.80-1.30); PROTIME 22.1 Sec (11.2-14.2)
--- NOTE | 2025-08-02 13:47 | EKG ---
[facility] [address] [place] [address] Signed Atrial fibrillation with rapid ventricular response Low voltage QRS Cannot rule out Anterior infarct , age undetermined Abnormal ECG When compared with ECG of 15-JUL-2025 18:29, Minimal criteria for Anterior infarct are now present Confirmed by Maria Guadalupe Redd DO ([id number]) on 08/02/2025 1:46:48 PM Electronically Signed By: MARIA GUADALUPE REDD DO 08/02/25 1347 PATIENT NAME: NAIMA BERG Electrocardiogram DATE OF : 52 PHYSICIAN: MARIA GUADALUPE REDD DO REPORT #: [id number] REPORT IS CONFIDENTIAL AND NOT TO BE RELEASED WITHOUT AUTHORIZATION
[2025-08-02] MEDS ORDERED: HYDROCORTISONE SOD SUCCINATE 100 MG/2 ML VIAL IV SCH (14:00)
--- NOTE | 2025-08-02 14:30 | NUR ---
PT INCONTENT OF RED IN COLOR STOOL, LIQUID. PT CLEANED UPED AND ATTENDS INPLACE. CALL LIGHT WITHIN REACH AND AT THE BEDSIDE.
--- NOTE | 2025-08-02 14:34 | NUR ---
MED REC COMPLETE
--- NOTE | 2025-08-02 14:39 | NUR ---
Pt Choice List given to Yamilet and her spouse.
--- NOTE | 2025-08-02 15:47 | NUR ---
PT REQUESTED WARM BLANKETS AND FRESH ICE WATER. CLEANED UP PT'S ROOM AND TOOK OUT TRASH. PT HAS A VISITOR IN THE ROOM. VISITOR HAD SPILLED SOME WATER ON THE FLOOR - I CLEANED IT UP, SAFETY RISK.
[2025-08-02] MEDS ORDERED: METOPROLOL TARTRATE 25 MG TAB PO SCH (16:30)
--- NOTE | 2025-08-02 19:45 | NUR ---
REPORT RECEIVED FROM NICHOLE BERKOWITZ. IN TO CHECK ON PT, SHE IS RESTING IN BED AWAKE. DENIES NEEDS OR PAIN AT THIS TIME. SHE DOES REPORT "A FUNNY FEELING" IN HER LOWER ABDOMEN. IVF INFUSING AT 125ML/HR. CALL LIGHT IN REACH.
--- NOTE | 2025-08-02 21:43 | NUR ---
PT USED THE BED BERGER AND HAD A BM. BRITTNEY PAD, DRAW SHEET AND DIAPER CHANGED WHEN FINISHED. ORAL CARE WAS COMPLETED AND PM CARE, WITH PT HAVING A WARM WASH CLOTH FOR HER FACE AND HANDS. TRASH WAS REMOVED FROM THE ROOM AND THE ROOM WAS CLEANED UP. THE RN HELPED THIS VELVET WEAVER WHEN THE PT FINISHED USING THE BED BERGER. I GOT THE PT FRESH ICE WATER AND TURNED OUT HER ROOM LIGHTS REQUESTED. THE CALL LIGHT WAS PLACED ON THE PT'S LAP, WELL KLEENEX, REQUESTED. THE PT REPORTED NEEDING NOTHING MORE AT THIS TIME.
--- NOTE | 2025-08-02 22:33 | NUR ---
PT REPORTED COLD FEET, SO I GOT HER A WARM BLANKET FOR HER FEET.
--- NOTE | 2025-08-02 23:51 | NUR ---
PT RESTING, RESP EVEN UNLABORED, HR 90'S AFIB.
[2025-08-03] VITALS (45 sets, daily range): BP systolic 69–141; BP diastolic 49–96
--- NOTE | 2025-08-03 00:20 | NUR ---
PTS BP'S HAVE TRENDED DOWN, 70'S/50'S WITH MAPS < 60. LEVOPHED DRIP STARTED AT 5MCG/MIN. PTS HEARTRATE 70-80'S, AFIB.
--- NOTE | 2025-08-03 02:53 | NUR ---
PT CALLS TO USE BEDPAN, PT HAD MEDIUM SIZED RED STOOL. PT THEN CLEANED, RENA CARE DONE AND PT REPOSITIONED UP IN BED. WILL TRIAL LEVOPHED OFF BP'S HAVE COME UP.
--- NOTE | 2025-08-03 04:31 | NUR ---
PT CALLS FOR BEDPAN, HAS ANOTHER MEDIUM SIZED RED LIQUID STOOL.
[2025-08-03 05:35] LABS: MCH 31.5 PG (25.6-32.2); MCHC 33.7 g/dL (32.2-35.5); MCV 93.4 fL (79.4-94.8); RBC 3.02 M/uL (3.93-5.22)
[2025-08-03 05:51] LABS: BANDS, MANUAL DIFF 1; LYMPHOCYTES, MANUAL DIFF 10; MONOCYTES, MANUAL DIFF 2; NEUTROPHILS, MANUAL DIFF 87
[2025-08-03 06:00] LABS: ALT (SGPT) 9.0 U/L (14-59); AST (SGOT) 14.0 U/L (15-37); GLOMERULAR FILTRATION RATE,EST 30.0 mL/min (>60); PROTEIN, TOTAL 4.2 g/dL (6.4-8.2); UREA NITROGEN 38.0 mg/dL (7-18)
--- NOTE | 2025-08-03 07:00 | NUR ---
DR REDD UPDATED ON POSITIVE BLOOD CULTURES, HYPOTENSION THROUGH THE NIGHT NEEDING LEVOPHED AND INCREASING HEARTRATE. PT RESTING WITH EYES CLOSED, RESTING HR 110-120'S AFIB. CURRENT BP 85/56 MAP 64.
[2025-08-03] MEDS ORDERED: PIPERACILLIN/TAZOBACTAM 4.5 GM in DEXTROSE 5% 100 ML IV SCH (08:00)
[2025-08-03] MEDS ORDERED: HYDROCORTISONE SOD SUCCINATE 100 MG/2 ML VIAL IV SCH (08:00)
--- NOTE | 2025-08-03 10:45 | NUR ---
PT RESTING IN BED, WATCHING TV. AT BEDSIDE. DENIES FURTHER NEEDS AT THIS TIME, CALL LIGHT IN REACH
--- NOTE | 2025-08-03 11:33 | NUR ---
PT RESTING IN BED, VISITOR AND AT BEDSIDE. WATER REFRESHED, DENIES NEEDS AT THIS TIME. CALL LIGHT IN REACH
--- NOTE | 2025-08-03 12:00 | NUR ---
SPOKE WITH DR REDD, LEVOPHED STILL AT 7.5 MCG, WILL GIVE A 1 L BOLUS IN ATTEMPTS TO SUPPORT BLOOD PRESSURE
[2025-08-03] MEDS ORDERED: LACTATED RINGER'S 1,000 ML IV PRN (12:15)
--- NOTE | 2025-08-03 13:15 | NUR ---
Stopped to see Yamilet. She is sleeping. Not awakened. Will see pt tomorrow.
--- NOTE | 2025-08-03 13:42 | NUR ---
HOURLY ROUNDING PATIENT LAYING IN BED, NOT DOING MUCH. ENCOURAGED FLUIDS. CALL LIGHT PLACED WITHIN REACH
--- NOTE | 2025-08-03 14:36 | NUR ---
PT IN BED AND TALKATIVE. TURNED NOREPI DOWN TO 5MCG. BP 102/74 84.
--- NOTE | 2025-08-03 17:03 | NUR ---
TURNED LEVO DOWN TO 2.5MCG. CHANGED LINENS. INSPECTED SKIN AND CHECKED DEPENDS. PT REMAINS DRY WITH NO BM THIS AFTERNOON. PROPPED WITH PILLOWS. LEFT ARM APPEARS SWOLLEN, BUT NOT TIGHT OR COOL TO TOUCH. PT STATES IT IS NORMAL FOR HER TO SWELL OF LEFT SIDE ARM AND FEET.
[2025-08-03 18:38] LABS: LACTOFERRIN,FECAL BY ELISA Positive (Negative)
--- NOTE | 2025-08-03 21:31 | NUR ---
PT CALLS FOR BEDPAN, MODERATE SIZED RED/BROWN LIQUID STOOL. RENA CARE DONE, HS CARE/RESENDIZ CARE DONE. PT NOW WANTING TO TRY TO SLEEP.
[2025-08-03] MEDS ORDERED: METOPROLOL TARTRATE 5 MG/5 ML VIAL ONE (23:22)
--- NOTE | 2025-08-03 23:37 | NUR ---
DR CAROLINA DOWN TO SEE PT AFTER REPORT OF LOW BP'S. ORDER GIVEN FOR 500ML LR BOLUS. ORDER GIVEN FOR 2.5MG IV METOPROLOL PTS HR IS 100-120'S AFIB. HR DOWN TO 80-90'S AFTER IV METOPROLOL GIVEN. BPS IMPROVED, BOLUS IS NOW DONE. LAST BP 97/65 (73) AND HR 90'S AFIB. PT CURRENTLY ON BEDPAN WITH CALL LIGHT IN HAND.
[2025-08-03] MEDS ORDERED: METOPROLOL TARTRATE 5 MG/5 ML VIAL IV ONE (23:45)
[2025-08-04] VITALS (23 sets, daily range): BP systolic 78–101; BP diastolic 52–71
--- NOTE | 2025-08-04 01:49 | NUR ---
BP'S HAVE COME UP, PT RESTING WITH HR 100'S, BP 95/67
--- NOTE | 2025-08-04 02:36 | NUR ---
IN FOR IV ALARM, PT AWAKE IN BED, STATES SHE HAS NOT BEEN ABLE TO GET BACK TO SLEEP BUT IS RESTING WITH EYES CLOSED. REPOSITIONED UP IN BED. HR REMAINS 80-90'S AFIB. BP'S MAINTAINING.
[2025-08-04 04:07] LABS: ADENOVIRUS F 40/41 Not Detected (Not Detected); ASTROVIRUS Not Detected (Not Detected); C DIFFICILE TOXIN A/B Not Detected (Not Detected); CAMPYLOBACTER Not Detected (Not Detected); CRYPTOSPORIDIUM Not Detected (Not Detected); CYCLOSPORA CAYETANENSIS Not Detected (Not Detected); ENTAMOEBA HISTOLYTICA Not Detected (Not Detected); ENTEROAGGREGATIVE E COLI Not Detected (Not Detected); ENTEROPATHOGENIC E COLI Not Detected (Not Detected); ENTEROTOXIGENIC E COLI Not Detected (Not Detected); GIARDIA LAMBLIA Not Detected (Not Detected); NOROVIRUS GI/GII Not Detected (Not Detected); PLESIOMONAS SHIGELLOIDES Not Detected (Not Detected); ROTAVIRUS A Detected (Not Detected); SALMONELLA Not Detected (Not Detected); SAPOVIRUS Not Detected (Not Detected); SHIGA-TOXIN-PRODUCING E COLI Not Detected (Not Detected); SHIGELLA/ENTEROINVASIVE E COLI Not Detected (Not Detected); VIBRIO Not Detected (Not Detected); VIBRIO CHOLERAE Not Detected (Not Detected); YERSINIA ENTEROCOLITICA Not Detected (Not Detected)
[2025-08-04 05:30] LABS: MCH 32.0 PG (25.6-32.2); MCHC 34.5 g/dL (32.2-35.5); MCV 93.0 fL (79.4-94.8); RBC 2.84 M/uL (3.93-5.22)
[2025-08-04 05:45] LABS: ALT (SGPT) 7.0 U/L (14-59); AST (SGOT) 9.0 U/L (15-37); GLOMERULAR FILTRATION RATE,EST 35.0 mL/min (>60); PROTEIN, TOTAL 3.9 g/dL (6.4-8.2); UREA NITROGEN 31.0 mg/dL (7-18)
[2025-08-04 05:51] LABS: BANDS, MANUAL DIFF 1; LYMPHOCYTES, MANUAL DIFF 12; MONOCYTES, MANUAL DIFF 1; NEUTROPHILS, MANUAL DIFF 86
--- NOTE | 2025-08-04 06:00 | NUR ---
PT CALLS TO USE THE BEDPAN
--- NOTE | 2025-08-04 07:45 | NUR ---
SHIFT REPORT RECIEVED. PATIENT OFFERED CLEAR LIQUID BREAKFAST TRAY WHICH SHE DECLINED. PATIENT PROVIDED DIFFERENT JUICE PER REQUEST. PATIENT IS AAOX4. DENIED OTHER NEEDS. CALL LIGHT IN REACH.
[2025-08-04 09:35] LABS: HAPTOGLOBIN 281 mg/dL (30-200)
[2025-08-04] MEDS ORDERED: LACTOBACILLUS RHAMNOSUS GG 1 EACH CAP PO SCH (09:41)
[2025-08-04] MEDS ORDERED: METOPROLOL SUCCINATE 25 MG TABCR PO SCH (09:45)
[2025-08-04] MEDS ORDERED: ALBUMIN HUMAN 25% 100 ML BTL IV ONE (09:45)
--- NOTE | 2025-08-04 10:00 | NUR ---
Spoke with Yamilet and her spouse. States she is feeling better today. BP remains low. They did look at the PT Choice List and pt would like to stay in town at [place]. Spouse would like her to go to [facility]. I let them know I will send the chart both places as they do not want any other SNFs as I reviewed the Medicare Site for ratings of SNFs in a 50 mile radius. We discussed pt would go to placement as a therapy pt, medicare and insurance will cover the cost, pt will be able to dc when they have reached their goals at the SNF. Pt will decide where she wants to go when she is closer to dc.
--- NOTE | 2025-08-04 10:26 | NUR ---
MEDS GIVEN PER ORDER. PATIENT IS RESTING IN BED AND AT BEDSIDE. HR MORE CONTROLLED; 70-80'S AFIB. BP REMAINS SOFT. ALBUMIN STARTED; IV SITE WNL IN RIGHT WRIST.
--- NOTE | 2025-08-04 10:53 | NUR ---
AWARE OF PATIENT'S BP TREND. GOAL TO MAINTAIN MAP >65
--- NOTE | 2025-08-04 11:34 | NUR ---
PT NOT AVAILABLE FOR VISIT. PROVIDED PRAYER.
--- NOTE | 2025-08-04 12:42 | NUR ---
PATIENT ENCOURAGED TO GET UP TO THE RECLINER. PATIENT REQUIRED 2PA AND FWW TO STAND AND PIVOT TO THE BSC. PATIENT THEN HAD SMALL LOOSE STOOL; BROWN/RED IN COLOR. PATIENT THEN ASSISTED TO TRANSFER TO THE RECLINER; 2PA TO STAND AND THEN PATIENT ABLE TO TAKE 2-3 STEPS. PATIENT HR 110-120 DURING ACTIVITY. PATIENT PROVIDED A CLEAR ENSURE AND BEDSIDE TABLE WITH ALL BELONGINGS IS WITHIN REACH. RECLINER TURNED TO FACE THE WINDOW PER REQUEST. CALL LIGHT IN REACH.
--- NOTE | 2025-08-04 14:36 | NUR ---
PATIENT UP TO BSC; HEAVY 2PA TO STAND. PATIENT HAS SMALL LIQUID STOOL; DARK RED/BROWN IN COLOR. PATIENT THEN REQUESTED TO GO BACK TO BED. ASSISTED PATIENT TO TRANSFER AND POSITION FOR COMFORT. PATIENT TOLERATED ACTIVITY WELL; HR 90'S AT REST. PATIENT REMAINS ON ROOM AIR. DENIED PAIN OR NAUSEA. SCDs IN PLACE. IV FLUIDS PER ORDER; SITE WNL. PATIENT'S AT BEDSIDE. CALL LIGHT IN REACH.
--- NOTE | 2025-08-04 16:30 | NUR ---
PATIENT RESTING IN BED. REPORTS TAKING A SMALL NAP. DENIED ANY NEEDS OR CONCERNS. VS STABLE. IV SITE WNL. CALL LIGHT IN REACH.
--- NOTE | 2025-08-04 17:30 | NUR ---
PATIENT USED BED BERGER; HAD MEDIUM LOOSE STOOL. PATIENT CLEANED UP AND RESENDIZ CARE DONE. PATIENT REPORTS SOME INCREASE CRAMPING IN ABD. WARM BLANKET APPLIED. VS STABLE. CALL LIGHT IN REACH.
--- NOTE | 2025-08-04 20:34 | NUR ---
PATIENT PROVIDED WARM BLANKET AND ICE WATER. NO FURTHER NEEDS IDENTIFIED. VITAL SIGNS STABLE. CALL LIGHT IN REACH
--- NOTE | 2025-08-04 21:42 | NUR ---
PATINT CURRENTLY ON BED BERGER, ASSESSMENT COMPLETE AND HS MEDICATIONS ADMINISTERED. PATIENT IS ALERT AND ORIENTED. B/P IS SOFT, AT NURSES STATION SAID TO GIVE METOPROLOL FOR HEART RATE CONTROL SCHEDULED.
--- NOTE | 2025-08-04 22:34 | NUR ---
HANDOFF REPORT RECEIVED FROM SHO RUBI. ALL QUESTIONS ANSWERED.
--- NOTE | 2025-08-04 22:50 | NUR ---
PATIENT OFF BED BERGER. PATIENT HAS X1 MEDIUM LIQUID STOOL. NEW BRIEF PLACED. PATIENT OFFERED PO FLUIDS BUT DECLINES AT THIS TIME. SCDS IN PLACE. BLE PLACED ON PILLOWS. NO FURTHER NEEDS IDENTIFIED. CALL LIGHT IN REACH. BED ALARM ON.
[2025-08-05] VITALS (15 sets, daily range): BP systolic 81–114; BP diastolic 55–78
--- NOTE | 2025-08-05 00:19 | NUR ---
PATIENT RESTING IN BED. RR 20. NO EVIDENCE OF ACUTE DISTRESS NOTED. VITAL SIGNS STABLE. CALL LIGHT IN REACH. BED ALARM ON.
--- NOTE | 2025-08-05 00:50 | NUR ---
PATIENT RESTING IN BED W/ EYES CLOSED. RR EVEN AND UNLABORED. IV SITE INTACT, IVF INFUSING PER EMAR. RESENDIZ INTACT, DRAINING BERT COLOR URINE. VITAL SIGNS STABLE. CALL LIGHT IN REACH. BED ALARM ON.
--- NOTE | 2025-08-05 02:10 | NUR ---
PATIENT ASSISTED ONTO BEDPAN. PATIENT INCONTINENT OF STOOL. PATIENT HAD X1 SMALL BROWN LIQUID STOOL. NEW BRIEF PLACED. PATIENT PROVIDED WARM BLANKET. NO EVIDENCE OF ACUTE DISTRESS NOTED. PATIENT REPOSITIONED IN BED. CALL LIGHT IN REACH. BED ALARM ON.
--- NOTE | 2025-08-05 05:15 | NUR ---
THIS RN IN ROOM. PATIENT DROWSY BUT EASILY AROUSABLE TO VERBAL STIMULI. LAB IN ROOM TO DRAW AM LABS. IVF INFUSING PER EMAR. IV SITE INTACT AND WNL. HR 80'S-90'S, AFIB. RESENDIZ INTACT AND WNL. PATIENT DENIES NEEDS AT THIS TIME. VITAL SIGNS STABLE. CALL LIGHT IN REACH.
[2025-08-05 05:27] LABS: MCH 31.1 PG (25.6-32.2); MCHC 33.3 g/dL (32.2-35.5); MCV 93.4 fL (79.4-94.8); RBC 2.73 M/uL (3.93-5.22)
[2025-08-05 05:37] LABS: GLOMERULAR FILTRATION RATE,EST 41.0 mL/min (>60); UREA NITROGEN 26.0 mg/dL (7-18)
[2025-08-05 05:41] LABS: LYMPHOCYTES, MANUAL DIFF 4; MONOCYTES, MANUAL DIFF 3; NEUTROPHILS, MANUAL DIFF 93
--- NOTE | 2025-08-05 05:45 | NUR ---
patient titrated up to 6L NC, SPO2 now 90%. patient resting with eyes closed. respirations even and unlabored. patient has call light in reach.
--- NOTE | 2025-08-05 08:40 | NUR ---
PT CALLED, REQUESTING TO "GET OUT OF THIS MESS". PT REPORTED THAT SHE HAD PASSED A BM IN HER BRIEF BECAUSE "NO ONE EVER SEEMS TO WANT TO GET ME THE BEDPAN." THIS RN AND SHO HEART, ASSISTED PT IN GETTING CLEANED UP. PT HAD MODERATE LIQUIDY MAROON RED-TINGED STOOL. PRIMARY RN ТАТЬЯНА NOTIFIED. NO FURTHER NEEDS. CALL LIGHT WITHIN REACH.
--- NOTE | 2025-08-05 09:00 | NUR ---
AM ASSESSMENT COMPLETE - PT RESTING IN BED AND ENCOURAGED TO SIT UP IN CHAIR POSISTION IN BED VS LAYING FLAT. SELF CARES LIKE PO MED ADMINISTRATION ENCOURAGED, PT NEEDING INSTRUCTION TO INCREASE MOBILITY. URINE IN RESENDIZ CATH CONCENTRATED, ORAL FLUIDS ENCOURAGED, REED CLEAR ENSURE PROVIDED PER REQUEST. PT REPORTS CRAMPY FEELING IN ABD, WARM BLANKET PROVIDED. VS STABLE, RATE CONTROLLED AND NORMOTENSIVE BP. 3+ EDEMA REMAINS IN LOWER EXTREMITIES, EDUCATION PROVIDED ON IMPORTANCE OF MOBILITY. CALL LIGHT IN REACH.
--- NOTE | 2025-08-05 10:02 | NUR ---
PHYSICAL AND OCCUPATIONAL THERAPY IN ROOM - PT SITTING ON EDGE OF BED. HR NOTED TO ELEVATE TO NON SUSTAINED RATES >130. PT ASYMPTOMATIC WITH THIS.
--- NOTE | 2025-08-05 10:25 | NUR ---
Spoke with Yamilet. Updated I received notification from [facility] they will accept her on dc. [facility] also called and would like to see PT/OT notes before accepting her. [facility] has not decided where she was to discharge. Per PT pt is a heavy assist pt.
--- NOTE | 2025-08-05 11:53 | NUR ---
PT RESTING IN BED VISITING WITH . PT DENIES PAIN OR NAUSEA, DOES NOT WANT ANYTHING FOR LUNCH. PO ORAL FLUIDS ENCOURAGED. POOR URINE OUTPUT, REMAINS BERT. IS USE INSTRUCTED AND ENCOURAGED, PT HAS PRODUCTIVE COUGH, LUNGS CLEAR/DIM, ENCOURAGED UPRIGHT POSISTION.
--- NOTE | 2025-08-05 12:28 | NUR ---
BLOOD CULTURE RESULTS SHOWING GRAM - RODS REVIEWED WITH . VERBAL ORDER ENTERED FOR BACTRIM DS BID. INCREASE IN TOPROLOL DOSING FOR BETTER RATE CONTROL.
[2025-08-05] MEDS ORDERED: METOPROLOL TARTRATE 25 MG TAB PO ONE (12:30)
--- NOTE | 2025-08-05 12:53 | NUR ---
PT USES CALL LIGHT TO REPORT NEEDING BED BERGER. PROVIDED, CALL LIGHT IN REACH.
[2025-08-05] MEDS ORDERED: CIPROFLOXACIN 500 MG TAB PO SCH (13:30)
--- NOTE | 2025-08-05 14:30 | NUR ---
RN AT BEDSIDE WITH MD ROUNDING - PLAN OF CARE REVIEWED. CLEAR ENSURES ENCOURAGED. RESENDIZ CARE COMPLETE WITH ATTENDS CHANGE. SMALL BLOODY BM IN BEDPAN. PT ABILITY TO ASSIST SELF ROLLING IN BED IMPROVED. VS STABLE.
--- NOTE | 2025-08-05 17:46 | NUR ---
PT ASSISTED ONTO BED BERGER PER REQUEST - MEDIUM LIQUID BLOODY STOOL. PT REQUESTS NON DAIRY YOGURT, KITCHEN CALLED AND ITEM IS NOT AVAILABLE. PT ENCOURAGED TO HAVE ITEM BROUGHT IN BY .
--- NOTE | 2025-08-05 19:25 | NUR ---
HANDOFF REPORT RECEIEVED FROM DAYSHIFT RN. ALL QUESTIONS ANSWERED. PATIENT RESTING IN BED. VITAL SIGNS STABLE. CALL LIGHT IN REACH.
--- NOTE | 2025-08-05 20:20 | NUR ---
PATIENT ASSESSMENT COMPLETE. PATIENT ALERT AND ORIENTED. HR 90'S-100'S, AFIB. PATIENT NOTED TO HAVE A PRODUCTIVE COUGH. PHLEGM APPEARS CLEAR IN COLOR. PATIENT ENCOURAGED TO COUGH AND DEEP BREATHE. I/S AT BEDSIDE. SPO2 97% ON RA. BOWEL TONES HYPERACTIVE. PATIENT DENIES NAUSEA. PATIENT REPORTING ABDOMINAL PAIN 10/30. PATIENT REPORTS INTERMITTENT ABDOMINAL CRAMPING. WARM BLANKET PROVIDED FOR ABDOMEN PER PATIENT REQUEST. NEW BRIEF, LINENS, AND BRITTNEY PAD PLACED. PATIENT REPOSITIONED. SCDS IN PLACE. 3+, WHEEPING EDEMA NOTED TO BLE. BLE ELVATED ON PILLOWS. IV SITE INTACT. IVF INFUSING PER EMAR. VITAL SIGNS STABLE. RESENDIZ INTACT, RESENDIZ CARE COMPLETE. BED ALARM ON, CALL LIGHT IN REACH
[2025-08-05] MEDS ORDERED: METOPROLOL SUCCINATE 50 MG TABCR PO SCH (21:00)
--- NOTE | 2025-08-05 21:30 | NUR ---
MEDICATIONS ADMINISTERED PER EMAR. PATIENT REPORTS BEING INCONTINENT OF STOOL. PATIENT NOTED TO HAVE X1 BROWN AND BLOODY LIQUID BM. RENA/RESENDIZ CARE COMPLETE NEW BRIEF PLACED. PATIENT REPOSITIONED. PATIENT PROVIDED WITH ENSURE AND ICE WATER. NEW WARM BLANKET PROVIDED. VITAL SIGNS STABLE. BED ALARM ON, CALL LIGHT IN REACH.
--- NOTE | 2025-08-05 22:45 | NUR ---
NEW BAG OF IVF INFUSING PER EMAR. PATIENT RESTING IN BED WITH EYES CLOSED. EASILY AROUSABLE TO VERBAL STIMULI. NO NEEDS IDENTIFIED. VITAL SIGNS STABLE. CALL LIGHT IN REACH. BED ALARM ON .
--- NOTE | 2025-08-05 23:34 | NUR ---
PATIENT RESTING IN BED. VITAL SIGNS STABLE. NO EVIDENCE OF ACUTE DISTRESS NOTED. BED ALARM ON, CALL LIGHT IN REACH
[2025-08-06] VITALS (11 sets, daily range): BP systolic 84–105; BP diastolic 60–78
--- NOTE | 2025-08-06 00:52 | NUR ---
PATIENT RESTING IN BED WITH EYES CLOSED. RR EVEN AND UNLABORED. IVF INFUSING PER EMAR. NO EVIDENCE OF ACUTE DISTRESS NOTED. BED ALARM ON, CALL LIGHT IN REACH
--- NOTE | 2025-08-06 01:30 | NUR ---
PATIENT RESTING IN BED W/ EYES CLOSED. SPO2 96% ON RA. VITAL SIGNS STABLE. IVF INFUSING PER EMAR. IV SITE INTACT AND WNL. SCDS IN PLACE. RESENDIZ INTACT. NO EVIDENCE OF ACUTE DISTRESS NOTED. BED ALARM ON, CALL LIGHT IN REACH
--- NOTE | 2025-08-06 03:15 | NUR ---
PATIENT CALL LIGHT ANSWERED. PATIENT INCONTINENT OF STOOL. PATIENT NOTED TO HAVE X1 MUCOUS LIKE BLOODY/BROWN STOOL. NEW BRIEF PLACED. WHILE REPOSITIONING PATIENT, PATIENT NOTED TO HAVE ANOTHER EPISODE OF STOOL. RENA CARE AND RESENDIZ CARE COMPLETED AGAIN AT THIS TIME. NEW BRIEF PLACED AND CHUCKS PAD AT THIS TIME. PATIENT REPOSITIONED. SCDS IN PLACE. IV SITE INTACT. NO FURTHER NEEDS IDENTIFIED. CALL LIGHT IN REACH. BED ALARM ON.
--- NOTE | 2025-08-06 03:25 | NUR ---
PATIENT CALL LIGHT ANSWERED. PATIENT REQUESTING WARM BLANKET FOR ABDOMEN. WARM BLANKET PROVIDED. NO FURTHER NEEDS IDENTIFIED. BED ALARM ON, CALL LIGHT IN REACH
[2025-08-06 05:27] LABS: MCH 31.4 PG (25.6-32.2); MCHC 33.2 g/dL (32.2-35.5); MCV 94.4 fL (79.4-94.8); RBC 2.87 M/uL (3.93-5.22)
[2025-08-06 05:46] LABS: ALT (SGPT) 6.0 U/L (14-59); AST (SGOT) 12.0 U/L (15-37); GLOMERULAR FILTRATION RATE,EST 48.0 mL/min (>60); PROTEIN, TOTAL 3.6 g/dL (6.4-8.2); UREA NITROGEN 23.0 mg/dL (7-18)
[2025-08-06 05:47] LABS: LYMPHOCYTES, MANUAL DIFF 9; NEUTROPHILS, MANUAL DIFF 91
--- NOTE | 2025-08-06 06:08 | NUR ---
PATIENT OFF BED BERGER. RESENDIZ AND RENA CARE COMPLETE. NEW BRIEF PLACED. MEDICATIONS ADMINISTERED PER EMAR. HR 80'S-100'S, AFIB. PATIENT ENCOURAGED TO USE INCENTIVE SPIROMETER BUT REFUSES AT THIS TIME. PATIENT NOTED TO HAVE NON PRODUCTIVE COUGH AT THIS TIME. PATIENT ON RA AND TOLERATING WELL, SPO2 99%. WARM BLANKET PROVIDED. SCDS IN PLACE. BLE ELEVATED ON PILLOWS. PATIENT REPOSITONED. BED ALARM ON, CALL LIGHT IN REACH.
--- NOTE | 2025-08-06 10:24 | NUR ---
RN IN ROOM ROUNDING WITH MD - PT AND STATE UNDERSTANDING TO DC TO [facility] PROBABLY TODAY, PENDING HR WITH PHYSICAL THERAPY SESSION THIS AM. PT AGAIN EDUCATED ON IMPORTANCE OF MOBILIZATION R/T FLUID OVERLOAD AND PREVENTION OF PNEUMONIA. AFEBRILE OVERNIGHT AND THIS AM.
--- NOTE | 2025-08-06 10:32 | NUR ---
[facility] CAN ACCEPT PATIENT TODAY. WHEELCHAIR VAN SCHEDULED FOR [address] [place] NOTIFIED. STATES HE DOES WANT PT TO WORK WITH PATIENT PRIOR TO DC TODAY TO MANAGE MEDS. PT NOT IN FACILITY AT THIS TIME. CALLED AND SPOKE WITH PT REGARDING NEED TO SEE PATIENT BEFORE DC.
--- NOTE | 2025-08-06 11:11 | NUR ---
TRANSPORT RESCHEDULED TO 1430. PT ON THEIR WAY TO ASSESS PATIENT.
[2025-08-06] MEDS ORDERED: METOPROLOL SUCC50 MG PO (11:54)
--- NOTE | 2025-08-06 12:04 | NUR ---
pt placed on bed haddad per request, commode offered and pt declined. at bedside.
--- NOTE | 2025-08-06 12:40 | NUR ---
In with pt in response to call light. Pt states she is finished using the bedpan. SALVADOR Carlin in to assist. Pt log rolled to right side for jordan care and to remove bed haddad. Pt tolerated activity well, denies any pain or increased discomfort. Barrier cream applied to buttocks/gluteal cleft. Noted red line where pt was sitting on bed haddad. Red stool noted in bed haddad. Cath care performed after jordan care complete. New brief placed on pt. Bed lowered, side rails up x4, call light in reach. Pt denies further needs at this time. Primary RN notified of stool.
--- NOTE | 2025-08-06 13:45 | NUR ---
RESENDIZ WAS DC'D WITH 10CC WATER OUT OF BALLOON AND TIP INTACT. IV WAS D/CD WITH TIP INTACT. PT IN BED, DENIES NEEDS, IN ROOM WITH PT, AWARE OF PLAN TO DISCHARGE SOON TO [place].
--- NOTE | 2025-08-06 14:35 | NUR ---
PT ASSISTED WITH DRESSING AND GETTING INTO WHEELCHAIR WITH HEAVY 2PA AND WALKER. PT THEN TAKEN OUT WITH FAST FOOD ATTENDANT TO TRANSFER TO [place].
--- NOTE | 2025-08-06 15:45 | NUR ---
REPORT CALLED TO [facility] - ALL QUESTIONS ANSWERED AND CALL BACK NUMBER PROVIDED FOR QUESTIONS.
== END 2025-08-06 14:25 | DRG 871 ==
LOC: ED 06:40 → CCU 12:01
PROVIDERS: Emergency Medicine; Internal Medicine; ADMIT Student in an Organized Health Care Education/Training Program; ATTEND Student in an Organized Health Care Education/Training Program
PROC: 3E033XZ Introduction of Vasopressor into Peripheral Vein, Percutaneous Approach (ICD-10-PCS; principal; 2025-08-01)
PROC: 3E03329 Introduction of Other Anti-infective into Peripheral Vein, Percutaneous Approach (ICD-10-PCS; 2025-08-01)
DX: A41.9 Sepsis, unspecified organism (principal); R65.21 Severe sepsis with septic shock; K51.90 Ulcerative colitis, unspecified, without complications; E87.1 Hypo-osmolality and hyponatremia; I48.20 Chronic atrial fibrillation, unspecified; N17.9 Acute kidney failure, unspecified; D69.6 Thrombocytopenia, unspecified; I10 Essential (primary) hypertension; M19.90 Unspecified osteoarthritis, unspecified site; Z79.01 Long term (current) use of anticoagulants; Z90.710 Acquired absence of both cervix and uterus; Z90.89 Acquired absence of other organs; Z90.49 Acquired absence of other specified parts of digestive tract; Z98.890 Other specified postprocedural states; Z90.722 Acquired absence of ovaries, bilateral; Z96.653 Presence of artificial knee joint, bilateral; Z96.642 Presence of left artificial hip joint; Z88.0 Allergy status to penicillin; Z91.013 Allergy to seafood; Z88.2 Allergy status to sulfonamides; Z88.1 Allergy status to other antibiotic agents; Z88.5 Allergy status to narcotic agent; Z88.6 Allergy status to analgesic agent; Z79.899 Other long term (current) drug therapy; Z85.72 Personal history of non-Hodgkin lymphomas
CPT/HCPCS: 36415; 71045; 74176; 80048; 80053; 81003; 83010; 83605; 83615; 83630; 83735; 83880; 85025; 85045; 85379; 85384; 85610; 85730; 86850; 86900; 86901; 87040; 93005; 93010; 97161; 97164; 97165; 97168; 97530; 97535; A4311; A9270; J0696; J1720; J2405; J2470; J2543; J2919; J3480; J3490; J7040; J7060; J7121; P9047

== ENCOUNTER 2025-08-08 11:51 | Emergency (ER) | payer MEDICARE ==
[~2025-08-08] VITALS: Ht 162.6 cm; Wt 95.9 kg
--- OUTSIDE RECORDS SUMMARY | 2025-08-08 11:55 | XMS ---
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 E.D. VISIT COUNT (12 MO.) 4 ANY [place] TOTAL 4 NOTE: Visits indicate total known visits. ED/UCC VISIT TRACKING (12 MO.) 08/08/2025 11:51 [place] TYPE: Emergency COMPLAINT: - SHORTNESS OF BREATH 08/01/2025 06:40 [place] TYPE: Emergency COMPLAINT: - RECTAL BLEEDING 07/26/2025 17:03 [place] TYPE: Emergency COMPLAINT: - WEAKNESS DIAGNOSES: - Allergy status to analgesic agent - Allergy status to narcotic agent - Allergy status to other antibiotic agents - Allergy status to other drugs, medicaments and biological substances - Allergy status to penicillin - Allergy status to sulfonamides - Allergy to seafood - Diarrhea, unspecified - [facility] (current) use of anticoagulants - 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 - Noninfective gastroenteritis and colitis, unspecified - 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 - Unspecified atrial fibrillation 07/15/2025 18:23 [facility] [place] TYPE: Emergency COMPLAINT: - CHEST PAIN DIAGNOSES: - Allergy status to narcotic agent - Allergy status to other antibiotic agents - Allergy status to penicillin - Allergy status to sulfonamides - Allergy to seafood - Chest pain, unspecified - [facility] (current) use of anticoagulants - [facility] (current) use of aspirin - Other chest pain - 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 - Unspecified atrial fibrillation INPATIENT VISIT TRACKING (12 MO.) 08/01/2025 12:01 [facility] [place] [facility] [place] TYPE: Critical Care COMPLAINT: - SEPTIC SHOCK/COLITIS DIAGNOSES: - Acquired absence of both cervix and uterus - Acquired absence of both cervix and uterus - Acquired absence of other organs - Acquired absence of other organs - Acquired absence of other specified parts of digestive tract - Acquired absence of other specified parts of digestive tract - Acquired absence of ovaries, bilateral - Acquired absence of ovaries, bilateral - Acute kidney failure, unspecified - Acute kidney failure, unspecified - Allergy status to analgesic agent - Allergy status to analgesic agent - Allergy status to narcotic agent - Allergy status to narcotic agent - Allergy status to other antibiotic agents - Allergy status to other antibiotic agents - Allergy status to penicillin - Allergy status to penicillin - Allergy status to sulfonamides - Allergy status to sulfonamides - Allergy to seafood - Allergy to seafood - Chronic atrial fibrillation, unspecified - Chronic atrial fibrillation, unspecified - Diarrhea, unspecified - Essential (primary) hypertension - Essential (primary) hypertension - Hypo-osmolality and hyponatremia - Hypo-osmolality and hyponatremia - 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 - [facility] (current) use of anticoagulants - 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 - 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 - Other specified postprocedural states - Other specified postprocedural states - Personal history of non-Hodgkin lymphomas - Personal history of non-Hodgkin lymphomas - Presence of artificial knee joint, bilateral - Presence of artificial knee joint, bilateral - Presence of left artificial hip joint - Presence of left artificial hip joint - Sepsis, unspecified organism - Sepsis, unspecified organism - Severe sepsis with septic shock - Severe sepsis with septic shock - Thrombocytopenia, unspecified - Thrombocytopenia, unspecified - Ulcerative colitis, unspecified, without complications - Ulcerative colitis, unspecified, without complications - Unspecified osteoarthritis, unspecified site - Unspecified osteoarthritis, unspecified site [email or web address]
[2025-08-08] MEDS ORDERED: SODIUM CHLORIDE 0.9% 500 ML IV PRN (12:15)
[2025-08-08] MEDS ORDERED: SODIUM CHLORIDE 0.9% 1,000 ML IV PRN (12:15)
[2025-08-08] MEDS ORDERED: LIDOCAINE 2% VISCOUS 6 ML SYR TOP ONE (12:15)
[2025-08-08] MEDS ORDERED: SODIUM CHLORIDE 0.9% 1,000 ML IV ONE (12:15)
[2025-08-08 12:18] LABS: BASOPHILS 0.2 % (0.1-1.2); EOSINOPHILS 0 % (0.7-5.8); LYMPHOCYTES 2.7 % (19.3-51.7); MCH 31.4 PG (25.6-32.2); MCHC 33.2 g/dL (32.2-35.5); MCV 94.5 fL (79.4-94.8); MONOCYTES 1.5 % (4.7-12.5); NEUTROPHILS 93.2 % (34.0-71.1); RBC 3.44 M/uL (3.93-5.22)
[2025-08-08 12:25] LABS: BLOOD/HGB, URINE LARGE (Negative); KETONE, URINE TRACE (Negative); LEUK ESTERASE, URINE TRACE (negative); NITRITE, URINE NEGATIVE (negative)
[2025-08-08 12:32] LABS: BACTERIA, URINE RARE /hpf (negative); CASTS, URINE NONE SEEN \\lpf; CRYSTALS, URINE NONE SEEN (0-1+); REFLEX CULTURE, URINE No (No)
[2025-08-08 12:37] LABS: LACTIC ACID, BLOOD 2.1 mmol/L (0.4-2.0)
[2025-08-08 12:41] LABS: ALT (SGPT) 14.0 U/L (14-59); AST (SGOT) 16.0 U/L (15-37); GLOMERULAR FILTRATION RATE,EST 21.0 mL/min (>60); PROTEIN, TOTAL 4.4 g/dL (6.4-8.2); UREA NITROGEN 30.0 mg/dL (7-18)
[2025-08-08] MEDS ORDERED: NOREPINEPHRINE BITARTRATE 250 ML IV SCH (12:45)
[2025-08-08 13:11] LABS: INFLUENZA B NAA NEGATIVE (NEGATIVE); RESPIRATORY SYNCYTIAL VIR NAA NEGATIVE (NEGATIVE)
[2025-08-08] MEDS ORDERED: metroNIDAZOLE/SODIUM CHLORIDE 100 ML IV ONE (14:15)
[2025-08-08 14:29] LABS: LACTIC ACID, BLOOD 2.6 mmol/L (0.4-2.0)
[2025-08-08] MEDS ORDERED: LACTATED RINGER'S 1,000 ML IV ONE (14:45)
[2025-08-08] MEDS ORDERED: ALBUMIN HUMAN 25% 100 ML BTL IV ONE (18:15)
[2025-08-08 20:30] VITALS: BP 109/69
--- NOTE | 2025-08-08 20:35 | EKG ---
[facility] [address] [facility] [place] [address] Signed Atrial fibrillation with rapid ventricular response Possible Anterolateral infarct (cited on or before 01-AUG-2025) Abnormal ECG When compared with ECG of 01-AUG-2025 06:55, Nonspecific T wave abnormality now evident in Anterior leads Confirmed by Kenyatta Vázquez MD () on 08/08/2025 8:34:59 PM Electronically Signed By: KENYATTA VÁZQUEZ MD 08/08/252034 PATIENT NAME: NAIMA BERG Electrocardiogram DATE OF : 52 PHYSICIAN: KENYATTA VÁZQUEZ MD REPORT #: [id number] REPORT IS CONFIDENTIAL AND NOT TO BE RELEASED WITHOUT AUTHORIZATION
== END 2025-08-08 20:59 | disposition short-term general hospital (02) ==
LOC: ED 11:51
PROVIDERS: Emergency Medicine
DX: A41.9 Sepsis, unspecified organism (principal); R65.21 Severe sepsis with septic shock; N17.9 Acute kidney failure, unspecified; K61.1 Rectal abscess; M19.90 Unspecified osteoarthritis, unspecified site; Z79.899 Other long term (current) drug therapy; Z88.0 Allergy status to penicillin; Z91.013 Allergy to seafood; Z88.2 Allergy status to sulfonamides; Z88.1 Allergy status to other antibiotic agents; Z88.5 Allergy status to narcotic agent; Z88.8 Allergy status to other drugs, medicaments and biological substances
CPT/HCPCS: 36415; 36556; 51702; 51798; 71045; 71250; 74176; 80053; 81001; 83605; 83735; 83880; 85025; 85060; 87502; 93005; 93010; 96361; 96365; 96367; 96375; 96376; 99291; A4311; C1751; J0696; J7030; J7121; P9047; U0002